=== PATIENT | female | born 2000 | race Caucasian/White ===

== ENCOUNTER 2021-08-03 15:38 | Emergency (ER) | payer OTHER, SELFPAY ==
[2021-08-03 15:40] VITALS: BP 139/93; PULSE 99; RESP 18; TEMP 36.2; O2SAT 99; BMI 32.7
--- NOTE | 2021-08-03 15:58 | EKG12_ITS ---
Test Reason : DIZZY Blood Pressure : / mmHG Vent. Rate : 099 BPM Atrial Rate : 099 BPM P-R Int : 162 ms QRS Dur : 078 ms QT Int : 344 ms P-R-T Axes : 050 042 036 degrees QTc Int : 441 ms Normal sinus rhythm Normal ECG Confirmed by GABY STEPHENS, DEANGELO ([id number]), editor at large JCARLOS MONTEMAYOR ([id number]) on 08/04/2021 12:49:22 P M Referred By: BB Confirmed By:DAVID GRIFFIN MD
--- NOTE | 2021-08-03 16:00 | EDS_ITS ---
HPI History of Present Illness Chief Complaint: Headache Informant: patient Narrative Narrative: Presenting for evaluation reported headache on and off for 2 days currently at 3 improving with naproxen and Tylenol. However states reason why she came 2 days ago working at [employer] had 2 syncopal episode she was working when this happened. Denies recent vomiting or diarrhea. Denies any chest pains palpitations. Denies urinary symptoms. States was sent home from [employer]. States first time did hit her head. Headache started afterwards. Denies any past medical history denies any previous similar symptoms in the past. Does not have a PCP. States having intermittent lightheaded symptoms. Came here with concerns for why she has lightheaded symptoms. Denies abdominal pain. No surgeries in the past no allergies. PFSH PFSH Home Medications NK 08/03/21 [History Last Taken Unknown] Allergy/AdvReac Type Severity Reaction Status Date / Time No Known Allergies Allergy Verified 08/03/21 15:42 Social History Smoking Status: Never smoker ROS ROS ED Constitutional Constitutional ED: Denies chills, fever(s) or sweats Eyes Eyes: Denies change in vision ENT ENT ED: Denies dysphagia or sore throat Cardiovascular Cardiovascular: Denies chest pain, leg edema, palpitations or racing heartbeat Respiratory/Chest Respiratory/Chest: Denies cough, dyspnea or dyspnea on exertion Gastrointestinal Gastrointestinal: Denies abdominal pain, diarrhea, nausea or vomiting Genitourinary Genitourinary ED: Denies dysuria, hematuria or urinary frequency Musculoskeletal Musculoskeletal: Denies back pain, extremity pain or neck pain Integumentary Denies rash or wounds Neurologic Neurologic: Reports headache(s); Denies paresthesias or weakness EXAM Physical Exam Const Vital Signs: 08/03/21 15:40 Temperature 97.1 F L Temperature Source Temporal Pulse Rate 99 Respiratory Rate 18 Blood Pressure 139/93 H Blood Pressure Mean 108 Pulse Ox 99 Oxygen Delivery Method Room Air Positive well nourished and well developed Constitutional Narrative: GCS 15. General Appearance ED: well developed and NAD HEENT Reports TM's clear and moist mucous membranes normocephalic and atraumatic Tympanic Membrane ED: Yes TM's clear Eyes PERRL, EOMs intact bilaterally and conjunctivae normal General Eye ED: Yes normal appearance of both eyes Neck no lymphadenopathy and supple Neck Narrative: No meningismus. General: Negative for tenderness Chest Wall Chest: Negative for tenderness Resp normal respiratory effort and normal air movement Effort and Inspection: symmetric chest movement; Negative for respiratory distress Cardio regular rate, regular rhythm and no murmurs Peripheral Pulses: pulses 2+ throughout GI normal to inspection, nondistended, normoactive bowel sounds and non-tender Palpation: Negative for guarding or rebound tenderness present Back/Spine no CVA tenderness and no thoracic nor lumbar tenderness Extremity normal to inspection General Extremety ED: Negative for edema or tenderness General Extremity: Negative for edema Neuro oriented x3, CN's II-XII intact bilaterally and no sensory deficits noted Sensorium / Orientation: awake and alert Skin no rashes or lesions noted and no wounds MDM MDM MDM Narrative Medical decision making narrative: Patient history concerns for head injury with concussion symptoms with her headache. Symptoms are mild currently. Here more concerns for syncopal episode occurring 2 days ago with lightheaded symptoms. EKG obtained which was normal basic labs were normal hCG negative. She has no focal deficits. She is given follow-up as an outpatient with return precautions. Work note given. She will continue Tylenol as needed as this is helping her symptoms. Lab Data Attestation: I reviewed the patient's lab results. Labs: Laboratory Results - last 24 hr 08/03/21 08/03/21 08/03/21 16:15 16:15 16:15 WBC 8.9 RBC 5.07 Hgb 13.4 Hct 42.2 MCV 83.2 MCH 26.4 L MCHC 31.8 L RDW Std Deviation 42.3 RDW Coeff of Floridalma 14.1 Plt Count 381 MPV 9.9 Immature Gran % (Auto) 0.300 Neut % (Auto) 70.0 Lymph % (Auto) 22.9 [place] % (Auto) 6.3 Eos % (Auto) 0.2 Baso % (Auto) 0.3 Absolute Neuts (auto) 6.2 Absolute Lymphs (auto) 2.04 Nucleated RBC % 0 Sodium 138 Potassium 3.6 Chloride 105 Carbon Dioxide 25.0 Anion Gap 8 BUN 7 Creatinine 0.70 Estim Creat Clear Calc 102.24 Est GFR (MDRD) Af Amer 137 Est GFR (MDRD) Non-Af 113 BUN/Creatinine Ratio 9.9 L Glucose 93 Calcium 9.2 Serum , Qual NEGATIVE EKG Initial EKG: Attestation: I personally reviewed and interpreted this EKG as follows: Comments: Sinus rhythm 99, no ST or T wave changes. QTc 441. Discharge Plan Triage Chief Complaint: Headache ED Provider: Jesse Tan Dx/Rx/DC Orders Clinical Impression: Syncope, Post-concussion headache Instructions: Causes of Syncope, ED Concussion Prescriptions: No Action NK RF: 0 Primary Care Provider: Care Physician,No Primary Referrals: Lucrecia Ross MD [STAFF PHYSICIAN] - 3-5 Days Care Physician,No Primary [Primary Care Provider] - Activity Restrictions/Additional Instructions: Normal EKG normal basic labs hCG negative. Continue Tylenol as needed for headache symptoms. Follow-up as an outpatient. Disposition Disposition: Home, Self Care Discharge Date/Time: 08/03/21 17:24
[2021-08-03 16:22] LABS: Absolute Lymphocyte Count 2.04 X10^3/uL (0.83-4.51); Absolute Neutrophil Count 6.2 X10^3/uL (2.0-7.7); Basophil# 0.03 X10^3/uL; Basophil% 0.3 % (0-1); Eosinophil# 0.02 X10^3/uL; Eosinophils% 0.2 % (0-5); Hematocrit 42.2 % (37-47); Hemoglobin 13.4 g/dL (12.0-15.0); Lymphocyte # 2.04 X10^3/ul (0.83-4.51); Lymphocyte % 22.9 % (19-41); Mean Corp Hgb Conc 31.8 g/dL (32-36); Mean Corpuscular Hgb 26.4 pg (27.0-32.0); Mean Corpuscular Volume 83.2 fL (81-99); Mean Platelet Vol. 9.9 fl (6.2-12.0); Monocyte# 0.56 X10^3/uL; Monocyte% 6.3 % (0-10); NRBC Flagged by Analyzer 0 % (0-5); Neutrophil # 6.22 X10^3/uL (2.7-7.7); Platelet Count 381 K/mm3 (150-450); RBC Distribution Width CV 14.1 % (11.6-14.6); RBC Distribution Width SD 42.3 fl (35.1-43.9); Red Blood Count 5.07 M/mm3 (4.2-5.4); White Blood Count 8.9 K/mm3 (4.4-11.0)
[2021-08-03 16:34] LABS: Anion Gap 8 (5-15); BUN 7 mg/dL (7-18); BUN/Creat Ratio 9.9 RATIO (10-20); Calcium,Total 9.2 mg/dL (8.5-10.1); Chloride 105 mmol/L (98-107); EST Glomerular Filtration Rate 113 mL/min (>60); Est Glom Filt Rate - Afr Amer 137 mL/min (>60); Estimated Creatinine Clearance 102.24 ml/min; Glucose 93 mg/dL (74-106); Potassium 3.6 mmol/L (3.5-5.1); Sodium Level 138 mmol/L (136-145)
--- NOTE | 2021-08-03 16:44 | CM.ED ---
Social Work Consult: No PCP Referral source: Self referral due to above. Met with patient in room. Introduced self and health social work professor role. Patient agreeable to speak with this health social work professor. This health social work professor broached topic of PCP. Patient confirms to not have a PCP. Patient is open to this health social work professor providing patient with list of PCP's that are local to patient geographical region and in-network with patient insurance. This health social work professor provided patient with list. Patient denies any other concerns in the community. No further services requested or indicated. Jacob Butts MSW, ELIZ-S
[2021-08-03 17:01] LABS: Internal QC Validated? YES +Cl - CLEAR BKGD; Pregnancy, Serum, hCG Quali. NEGATIVE Negative
== END 2021-08-03 17:24 | disposition home or self-care (01) ==
PROVIDERS: Emergency Provider Emergency Medicine; Visit Provider Emergency Medicine
DX: F07.81 Postconcussional syndrome (principal); G44.309 Post-traumatic headache, unspecified, not intractable; R55 Syncope and collapse
CPT/HCPCS: 80048; 84703; 85025; 93005; 99283

== ENCOUNTER → 2021-10-25 | Outpatient (CLI) | payer OTHER, SELFPAY ==
--- NOTE | 2021-10-25 14:31 | RAD_ITS ---
EXAM: XR LEFT ANKLE COMPLETE, 3 OR MORE VIEWS CLINICAL INDICATION: pain in ankle TECHNIQUE: Frontal, lateral and oblique views of the left ankle. This report was created using [employer] report generation technology. COMPARISON: None. FINDINGS: BONES/JOINTS: Unremarkable. No acute fracture. No subluxation. Normal alignment. Preservation of the joint space. No sclerotic or destructive changes observed. SOFT TISSUES: Unremarkable. No soft tissue swelling or gas. No radiopaque foreign body. RAD/Ankle min 3 Views IMPRESSION: Negative left ankle x-rays. Electronically Signed: Nahid Calhoun MD at 17:57 EDT ,
== END | disposition home or self-care (01) ==
LOC: MTRAD 14:29
PROVIDERS: PCP Family Medicine; Referring Provider Family Medicine; Visit Provider Family Medicine
DX: M25.572 Pain in left ankle and joints of left foot (principal)
CPT/HCPCS: 73610

== ENCOUNTER → 2022-05-10 | Outpatient (CLI) | payer MEDICAID, SELFPAY ==
--- NOTE | 2022-05-10 16:22 | MRI_ITS ---
STUDY: MRI BRAIN WITH AND WITHOUT CONTRAST REASON FOR EXAM: Female, 21 years old. LIGHTHEADEDNESS TECHNIQUE: Standardized multiplanar fat and water weighted pulse sequences were obtained. IV 15mL CLARISCAN was administered for the contrast portion of the examination. COMPARISON: None. FINDINGS: Normal size of the ventricles and extra-axial spaces for the patient''s age. Normal white matter tracts of the supratentorial brain. Normal bilateral basal ganglia. Normal thalami. There is no extra-axial fluid accumulation. Normal flow voids within the major intracranial circulation suggesting patency by spin echo criteria. Normal venous enhancement. There is no enhancing intra-axial or extra-axial abnormality. Normal sella turcica, pituitary gland, infundibular stalk, optic chiasm and hypothalamus. Normal tectal plate and pineal gland. Normal midbrain, roberth and medulla. Normal cerebellum. Normal basal cisterns. Normal bilateral temporal bones. Normal bilateral internal auditory canals. No demonstrated orbital abnormality, within the constraints of a routine brain study. Normal visualized paranasal sinuses. Normal calvarium and skull base. Normal visualized soft tissue structures. Normal visualized upper cervical spine. MRI/Brain W/WO Contrast IMPRESSION: Normal unenhanced and enhanced MRI of the brain. Electronically Signed: Jerome Partida MD at 17:53 EST ,
== END | disposition home or self-care (01) ==
PROVIDERS: PCP Family Medicine; Visit Provider Family Medicine
DX: R42 Dizziness and giddiness (principal)
CPT/HCPCS: 70553; A9575

== ENCOUNTER → 2022-05-11 | Outpatient (CLI) | payer MEDICAID, SELFPAY ==
[2022-05-11 17:04] LABS: Absolute Lymphocyte Count 2.11 X10^3/uL (0.83-4.51); Absolute Neutrophil Count 3.9 X10^3/uL (2.0-7.7); Basophil# 0.04 X10^3/uL; Basophil% 0.6 % (0-1); Eosinophil# 0.05 X10^3/uL; Eosinophils% 0.8 % (0-5); Hematocrit 41.6 % (37-47); Lymphocyte # 2.11 X10^3/ul (0.83-4.51); Mean Corp Hgb Conc 31.3 g/dL (32-36); Mean Corpuscular Hgb 27.4 pg (27.0-32.0); Mean Corpuscular Volume 87.6 fL (81-99); Mean Platelet Vol. 10.2 fl (6.2-12.0); Monocyte# 0.52 X10^3/uL; Monocyte% 7.9 % (0-10); NRBC Flagged by Analyzer 0 % (0-5); Neutrophil # 3.86 X10^3/uL (2.7-7.7); Neutrophil % 58.4 % (47-70); Platelet Count 340 K/mm3 (150-450); RBC Distribution Width CV 13.2 % (11.6-14.6); RBC Distribution Width SD 42.9 fl (35.1-43.9); Red Blood Count 4.75 M/mm3 (4.2-5.4); White Blood Count 6.6 K/mm3 (4.4-11.0)
[2022-05-11 17:38] LABS: Internal QC Validated? YES +Cl - CLEAR BKGD; Pregnancy, Serum, hCG Quali. NEGATIVE Negative
[2022-05-11 17:42] LABS: Anion Gap 8 (5-15); BUN 8 mg/dL (7-18); Calcium,Total 9.1 mg/dL (8.5-10.1); Chloride 105 mmol/L (98-107); EST Glomerular Filtration Rate 97 mL/min (>60); Est Glom Filt Rate - Afr Amer 117 mL/min (>60); Glucose 93 mg/dL (74-106); Potassium 3.9 mmol/L (3.5-5.1); Sodium Level 140 mmol/L (136-145)
== END | disposition home or self-care (01) ==
LOC: LAB 16:50
PROVIDERS: PCP Family Medicine; Visit Provider Internal Medicine Cardiovascular Disease
DX: R55 Syncope and collapse (principal); R42 Dizziness and giddiness
CPT/HCPCS: 36415; 80048; 84703; 85025

== ENCOUNTER → 2022-06-15 | Outpatient (CLI) | payer MEDICAID, SELFPAY ==
--- NOTE | 2022-06-15 07:17 | ECHOD_ITS ---
Reason For Study: SYNCOPE Procedure This was a 2D Doppler, Color Flow transthoracic echocardiogram. The exam was of adequate technical quality. Exam performed in department. Left Ventricle Normal LV size. Left ventricular systolic function is normal. The estimated ejection fraction is 65 %. No evidence for diastolic dysfunction. No regional wall motion abnormalities noted. Right Ventricle Normal RV size. Normal systolic function. Atria Normal left atrium. Normal right atrium. Normal atrial septum. Bubble contrast study negative for right to left interatrial shunt. Mitral Valve There is no mitral annular calcification. Normal mitral valve. Trivial mitral valve insufficiency. Tricuspid Valve Normal tricuspid valve. Mild tricuspid valve insufficiency. Unable to estimate RV systolic pressure due to insufficient tricuspid regurgitant envelope. Aortic Valve Trisinus/trileaflet aortic valve. Normal aortic valve. Pulmonic Valve The pulmonic valve is not well visualized. Great Vessels Normal sized aortic root. Pericardium/Pleural No pericardial effusion. Medication 22 gauge I.V. with prn adaptor inserted into left arm. Performed a rapid injection of agitated mix of 9 cc saline and 1cc air to assess for atrial septal defect. MMode/2D Measurements & Calculations LVIDd: 4.4 cm IVSd: 0.79 cm Ao root diam: 2.5 cm LVIDs: 3.4 cm LVPWd: 0.94 cm RVDd: 2.9 cm FS: 21.8 % LAV(MOD-sp4): 47.3 ml LVAd ap4: 28.4 cm2 SV(MOD-sp4): 49.2 ml LVLd ap4: 8.2 cm EDV(MOD-sp4): 83.1 ml EDV(sp4-el): 83.9 ml LVAs ap4: 16.3 cm2 LVLs ap4: 6.4 cm ESV(MOD-sp4): 34.0 ml ESV(sp4-el): 35.4 ml EF(MOD-sp4): 59.1 % EF(sp4-el): 57.8 % SV(sp4-el): 48.5 ml LA A4 area: 17.7 cm2 LA dimension(2D): 3.5 cm RA A4 area: 13.7 cm2 Time Measurements MV dec time: 0.18 sec Doppler Measurements & Calculations MV E max arvin: 96.4 cm/sec Lat Peak E' Arvin: 21.8 cm/sec Med Peak E' Arvin: 11.4 cm/sec MV A max arvin: 62.4 cm/sec E/E' lat: 4.4 E/E' med: 8.5 MV E/A: 1.5 MV V2 max: 109.1 cm/sec MV dec slope: 579.6 cm/sec2 Ao V2 max: 141.1 cm/sec MV max P.8 mmHg Ao max P.0 mmHg MV V2 mean: 64.0 cm/sec Ao V2 mean: 101.9 cm/sec MV mean P.9 mmHg Ao mean P.7 mmHg MV V2 VTI: 31.9 cm Ao V2 VTI: 31.6 cm AV (velocity ratio): 0.80 LV V1 max: 117.3 cm/sec PA V2 max: 94.4 cm/sec LV V1 max P.5 mmHg PA V2 mean: 67.5 cm/sec LV V1 mean P.2 mmHg LV V1 mean: 84.0 cm/sec LV V1 VTI: 25.3 cm ECHO/Echo Complete Interpretation Summary Left ventricular systolic function is normal. The estimated ejection fraction is 65 %. Trivial mitral valve insufficiency. Mild tricuspid valve insufficiency. Unable to estimate RV systolic pressure due to insufficient tricuspid regurgita nt envelope. No evidence for diastolic dysfunction. Bubble contrast study negative for right to left interatrial shunt. Ordering Physician: Espinoza Vargas Referring Physician: Espinoza Vargas Performed By: Lisa Mo RCS
== END | disposition home or self-care (01) ==
LOC: CVS 07:14
PROVIDERS: PCP Family Medicine; Referring Provider Internal Medicine Cardiovascular Disease; Visit Provider Internal Medicine Cardiovascular Disease
DX: R55 Syncope and collapse (principal)
CPT/HCPCS: 93225; 93226; 93306; A4216

== ENCOUNTER → 2022-06-20 | Outpatient (CLI) | payer MEDICAID, SELFPAY ==
[2022-06-20 09:34] LABS: Internal QC Validated? YES +Cl - CLEAR BKGD; Pregnancy, Serum, hCG Quali. NEGATIVE Negative
--- NOTE | 2022-06-20 15:44 | PCM.HP.BLA ---
History and Physical Date of Admission: 06/20/22 [facility] [address] [place], [place] [address] OFFICE VISIT Date of Service:? 05/11/22 MR#: [id number] Acct: [id number] Name:ACE VILLANUEVA Rep #: [id number] : 2000 Provider: Dr. Espinoza Vargas MD Age/Sex:? 21/F Location: [facility] [place] Status: Signed HPI HPI History of Present Illness Details: This is a 21-year-old white female who presents today for outpatient cardiovascular consultation based upon concerns of dizziness, lightheadedness, and syncope.? She states for greater than a year now she is experienced these symptoms with respect to dizziness and lightheadedness.? This can occur on a daily basis.? She states it can last for seconds.? During this time she does feel off balance, sometimes her vision is blurry, sometimes her hearing appears to be diminished, sometimes she feels transiently nauseated.? She notes she will pause and her symptoms will pass and then she can resume her activities.? She states that in the spring 2021 she had an episode after bending over and picking up a case of water where she felt dizzy and lightheaded and transiently lost consciousness.? She stated 3 days later she went to the emergency department for evaluation.? She notes her evaluation was unremarkable at the time.? She has not had a recurrent syncopal event. She does not describe any concerning chest discomforts.? She has had no orthopnea or PND or peripheral pitting edema.? She states she has not necessarily sensed a change in her heart rate and rhythm. She has been evaluated by ENT.? She has undergone brain MRI yesterday.? According to the report it was a normal unenhanced and enhanced MRI of the brain.? She states she is waiting for further follow-up from her PCP and/or ENT. She had an ECG in the office today.? She was noted to be in sinus rhythm.? She had no acute ECG changes. She states she has not gone through any cardiovascular evaluation in the past. Intake Vital Signs ? 08/03/2214:40 05/11/2314:44 05/11/2314:48 05/11/2315:02 Height 5 ft 2 in 5 ft 2 in 5 ft 1 in ? Weight: 179 lb ? 163 lb 2 oz ? BMI 32.7 ? 30.8 ? BP 139/93 H ? 122/78 H 124/72 H Blood Pressure Location ? ? Lt brachial Lt brachial Position ? ? Sitting Standing Respiration 18 ? 14 ? Pulse 99 ? 84 96 Pulse Source ? ? Auscultation Auscultation Temp 97.1 F L ? ? ? Pulse Oximetry (%) 99 ? ? ? Intake Visit Reasons:?lightheadness/ dizziness (JOSE DAVID) Dialysis Social Worker Required: No Accompanied by: Significant Other Allergies No Known Allergies Allergy (Verified 05/11/22 15:49) Medications L norgest/E estradiol-E estrad 0.15 mg-30 mcg (84)/10 mcg(7) tabs,3mos (Seasonique) 1 tab PO DAILY 05/10/22 [History Confirmed 05/11/22] cetirizine 10 mg tablet (Zyrtec) 10 mg PO DAILY PRN 05/10/22 [History Confirmed 05/11/22] fluoxetine 40 mg capsule (Prozac) 40 mg PO DAILY 05/10/22 [History Confirmed 05/11/22] PFSH Social History? Smoking Status:? Never smoker alcohol intake:? never substance use type:? does not use caffeine:? Yes (x2 week) ROS Const Const: Positive for headache(s) (after dizziness episodes); Negative for fatigue, weakness, body ache, fever(s), chills, frequent falls, night sweats, daytime sleepiness, difficulty sleeping, excessive sweating, weight gain, weight loss, increased appetite, poor appetite, anorexia or other Eyes Eyes: Negative for blurry vision or double vision ENT ENT: Positive for headache(s) (after dizziness episodes) and dizziness (blurred vision everything moves slower, position changes, weeding/mowing); Negative for balance problems Cardio Chest Pain: No Palpitations: No Edema: None Muscle aches with walking: None Resp Respiratory: Positive for SOB with activity (past 2 years, baseline); Negative for SOB at rest, SOB orthopnea\SOB lying down, Cough, Coughing up blood/hemoptysis, chest congestion, pain on inspiration, snoring, stridor, wheezing, crackles, paroxysmal nocturnal dyspnea or other Musc Musc: Positive for muscle aches/ myalgia (chronic back pain); Negative for muscle weakness, joint pain or balance problems Neuro Neuro: Positive for dizziness (blurred vision everything moves slower, position changes, weeding/mowing), lightheadedness (as soon as I do something couple seconds after I get up), syncope (x1 episode, bending over to parts picker a case of water became dizzy) and headache(s) (after dizziness episodes); Negative for near syncope, orthostatic symptoms, frequent falls, weakness, confusion, memory loss, restless legs, blurry vision, double vision, vertigo, seizures, lack of coordination or other Endo Endo: Negative for fatigue or excessive sweating Cardiology Exam Const Appearance: cooperative, healthy appearing, comfortable, no acute distress, well developed and well groomed Nutritional Appearance: overweight Orientation: alert, awake and oriented x3 Head Head: normal to inspection, normocephalic and atraumatic Ears: hearing grossly normal bilaterally Nose: external nose normal Face and Sinus: face symmetric Eyes Eyelids: eyelids normal Conjunctivae: conjunctivae normal Pupils: PERRL EOM: EOM intact bilaterally Neck Neck: normal visual inspection and full ROM Carotids: normal carotid upstroke Chest Chest inspection: normal inspection of the chest, symmetric chest movement and normal respiratory effort Auscultation: Bilateral: Clear to Auscultation Cardio Palpation: normal PMI Rate: regular rate Rhythm: regular rhythm Heart sounds: S1 normal and S2 normal GI GI: normal to inspection, soft and bowel sounds present Neuro General: patient alert, patient awake, patient oriented x3, gait normal and moves all extremities Skin Skin: no rashes or lesions noted Extremities Pulses: Normal: Right Femoral Pulse, Left Femoral Pulse, Right Dorsalis Pedis Pulse, Left Dorsalis Pedis Pulse, Right Posterior Tibial Pulse, Left Posterior Tibial Pulse, Right Radial Pulse and Left Radial Pulse Lower Extremity Edema: None: Bilateral Psych Psychological: normal affect Supplemental Info Supplemental Information Labs: ?? ? No Data to Display Diagnostics: ?? ? Electrocardiogram ? Pulmonary: ?? ? No Data to Display Assessment and Plan Assessment and Plan (1) Dizziness: ?Status:?Acute ?Plan: The patient complains of dizziness. The etiology is unclear at this time whether this is cardiac or noncardiac. From a cardiac standpoint as she experiences these symptoms every day she will have further evaluation with a 24-hour Holter monitor. She will also have evaluation of her cardiac anatomy/structure/physiology with a transthoracic echocardiogram to evaluate for any obvious concerns would be contributing to her symptoms. Its unclear as to whether she truly has any evidence of an underlying autonomic dysfunction disorder.? It may not be unreasonable to consider a tilt table study. (2) Lightheadedness: ?Status:?Acute ?Plan: The patient complains of lightheadedness as well. Again its unclear whether this is cardiac or noncardiac. She will continue cardiovascular noninvasive valuation as noted above (3) Syncope: ?Status:?Acute ?Plan: The patient had an episode of syncope with changing positions. This raise concerns of an underlying orthostatic type change. She did have orthostatic blood pressures in the office today that demonstrated no significant change on this day. She will continue evaluation and care as noted above. ? ? ? Orders: Orders 12 Lead EKG performed by [facility] Today R42 - Dizziness and giddiness ? Cardiac Holter Monitor, 24 Hrs Today R42 - Dizziness and giddiness, R55 - Syncope and collapse ? Tilt Table Test Today R00.2 - Palpitations, R42 - Dizziness and giddiness, R55 - Syncope and collapse ? Echo Complete Today R42 - Dizziness and giddiness, R55 - Syncope and collapse ? Basic Metabolic Profile (BMP) Today R42 - Dizziness and giddiness, R55 - Syncope and collapse ? CBC W/Diff, Automated Today R42 - Dizziness and giddiness, R55 - Syncope and collapse ? ,Serum,hCG Quali. Today R42 - Dizziness and giddiness, R55 - Syncope and collapse ? Plan Details Additional Comments: She was also asked to follow-up with her PCP and ENT if deemed appropriate for results of her brain MRI and further noncardiac evaluation. Of her cardiovascular evaluation is unremarkable then she may need further neurologic evaluation. From a cardiac standpoint in the interim she was asked to maintain adequate hydration and to consider wearing support/compression stockings when she is standing for prolonged periods of time. The above was discussed with the patient with her significant male other present.? She was agreeable to this approach. Thank you for allowing me to participate in the care of your patient.? Please don't hesitate to call if any issues arise. This note was generated using a voice recognition system and there may be incorrect words, spelling or punctuation that were not noted when reviewing the office note prior to saving. Follow Up: ? ? 3 Months (PFM ) COVID (Procedure Consent) Procedure Criteria Procedure Criteria: Yes Elective The surgeon/proceduralist and patient have discussed in detail the risk of exposure to and/or potential harm posed by the COVID-19 virus with having a surgery/procedure at this time versus the risk of? delaying the surgery/procedure. It is not possible to know either the risk of delaying the surgery or procedure or chance of getting an infection with perfect accuracy, but a joint decision was made between the patient and the surgeon/proceduralist ?to proceed at this time with the scheduled surgery/procedure as indicated on the consent form. Coding Level of Care Code Off vis,new,level 4 Diagnoses Dizziness? R42 Lightheadedness? R42 Syncope? R55 Time Spent (min) 45 Coding Level of Care Code Off vis,new,level 4 Diagnoses Dizziness? R42 Lightheadedness? R42 Syncope? R55 Time Spent (min) 45 05/11/22 1656 <Electronically signed by Espinoza Vargas MD> Date Espinoza Vargas MD Cosigner Signature: Date (if applicable) CC:? Denise Tirado, DO ~ Assessment & Plan Addt'l Comments Addendum: 06/20/2022 I have previously examined the patient and the H&P has been reviewed. There are no clinical changes since date of exam. This note was generated using a voice recognition system and there may be incorrect words, spelling or punctuation that were not noted when reviewing the office note prior to saving.
--- NOTE | 2022-06-20 15:48 | TILTTABLE_ITS ---
Staff Staff: Addie Montiel and Anastasiia Samayoa Summary Protocol: 70 Degree Upright Tilt Pre Test Resting HR: 78 Pre Test Resting BP: 138/81 Minimum Test HR: 86 Maximum Test HR: 155 Minimum Test BP: 68/0 Maximum Test BP: 138/86 Reason for Test Termination: Reached Maximum Test Time Physician Tilt Table Report Patient's Physicians Primary Care Physician: Denise Tirado Microbiology Analyst: Espinoza Vargas Indications/Diagnosis: Dizziness/lightheadedness Syncope Procedure Comments: The patient was brought to the tilt table laboratory and laid supine on the tilt table. She was awake and alert and warm and dry. The baseline heart rate was 78 bpm with a baseline blood pressure 138/81 mmHg. The cardiac rhythm was normal sinus rhythm. The patient was placed in the 70 degree upright tilt table position for approximately 30 minutes. The patient remained alert and oriented and warm and dry. The initial heart rate was 88 bpm with a blood pressure 124/80 mmHg with a minimal heart rate of 86 bpm and a minimal blood pressure of 118/78 mmHg. The cardiac rhythm remained sinus rhythm. The patient complained of her palms feeling clammy, hand numbness, and hand tingling. The patient did not lose consciousness. The patient was returned to the supine position. She was awake and alert and oriented and warm and dry. The heart rate was 103 bpm with a blood pressure 126/91 mmHg. The cardiac rhythm was sinus rhythm. The patient was administered nitroglycerin 0.4 mg sublingual x1. The patient was returned to the 70 degree upright tilt table position. In the 70 degree upright tilt table position the patient remained alert and oriented. She was initially warm and dry and subsequently reported as clammy/sweaty. The initial heart rate was 103 bpm with a blood pressure 126/91 mmHg. The minimal heart rate was 111 bpm with a minimal blood pressure of systolic 68 mmHg with no diastolic blood pressure being reported. The maximal heart rate was 155 bpm with a maximal blood pressure 114/62 mmHg. During this time the patient was noted to have sinus tachycardia with subsequent return to normal sinus rhythm with no obvious ectopy, dysrhythmias, or conduction system abnormalities appreciated. The patient reported a combination of feelings including feeling hot, lightheaded, hands warm and clammy, breathing heavy, and becoming diaphoretic. The patient did not lose consciousness. The patient was returned to the supine position where she remained alert and oriented and subsequently warm and dry. She was monitored with a concluding heart rate of 85 bpm and a concluding blood pressure 118/74 mmHg. Cardiac rhythm remains sinus rhythm. She was upright and taking oral intake well. She was subsequently released from the tilt table laboratory. Summary: 70 degree upright tilt table study pre and post nitroglycerin challenge demonstrate symptoms compatible with vasovagal/neurocardiogenic mediated type symptoms but was considered negative for reproducible vasovagal/neurocardiogenic mediated syncope. This note was generated using a voice recognition system and there may be incorrect words, spelling or punctuation that were not noted when reviewing the office note prior to saving.
[2022-06-20 15:56] VITALS: BP 138/81; BP 138/86; BP 68/0
== END | disposition home or self-care (01) ==
PROVIDERS: PCP Family Medicine; Referring Provider Internal Medicine Cardiovascular Disease; Visit Provider Internal Medicine Cardiovascular Disease
DX: R00.2 Palpitations (principal); R55 Syncope and collapse; R42 Dizziness and giddiness
CPT/HCPCS: 36415; 84703; 93660; J7040; A4216

== ENCOUNTER 2022-09-05 22:05 | Emergency (ER) | payer MEDICAID, SELFPAY ==
[2022-09-05 22:05] VITALS: BP 136/96; PULSE 93; RESP 15; TEMP 37.2; O2SAT 100; BMI 31.6
--- NOTE | 2022-09-05 23:18 | EDS_ITS ---
HPI HPI - GI History of Present Illness Chief Complaint: Other, Pain/Inj Detail of Chief Complaint: Epigastric discomfort with reflux. Informant: patient and spouse/S.O. Abdominal Pain/Flank Pain Onset: Weeks Context: Gradual Onset Timing: Intermittent Quality: Burning Location: Epigastric Current Severity: Mild Maximum Severity: Moderate Worsened by: Nothing Relieved by: Nothing Nausea/Vomiting/Emesis GI Symptom: Negative for Nausea or Vomiting Diarrhea/Melena/Hematochezia GI Symptom: Negative for Diarrhea, Melena or Hematochezia Associated Symptoms Associated Symptoms: Negative for Dysuria, Frequency, Hematuria or Urgency Narrative Narrative: 21-year-old female history of anxiety. Complaining of reflux symptoms. Says my esophagus hurts. Burning. Currently on no medications. Has never had upper endoscopy. Denies any abdominal surgery. Is on control has not had a menstrual period for a year. Denies any dysuria or diarrhea. No melena. No fever. Prior similar symptoms: Yes Recent Illness/Hospitalization: No PFSH PFSH Medical History no medical history Home Medications L norgest/E estradiol-E estrad 0.15 mg-30 mcg (84)/10 mcg(7) tabs,3mos (Seasonique) 1 tab PO DAILY 05/10/22 [History Last Taken Unknown] cetirizine 10 mg tablet (Zyrtec) 10 mg PO DAILY PRN 05/10/22 [History Last Taken Unknown] fluoxetine 40 mg capsule (Prozac) 40 mg PO DAILY 05/10/22 [History Last Taken Unknown] pantoprazole 40 mg tablet,delayed release (Protonix) 40 mg PO DAILY #30 tabs 09/05/22 [Rx Last Taken Unknown] Allergy/AdvReac Type Severity Reaction Status Date / Time No Known Allergies Allergy Verified 08/01/22 15:20 Social History Smoking Status: Never smoker alcohol intake: never substance use type: does not use caffeine: Yes (x2 week) ROS ROS ED ROS Narrative Epigastric discomfort. Reflux. Review of Systems ROS Unobtainable: Denies due to encephalopathy Constitutional Constitutional ED: Denies chills or fever(s) ENT ENT ED: Denies ear pain Cardiovascular Cardiovascular: Denies chest pain Respiratory/Chest Respiratory/Chest: Denies cough or dyspnea Gastrointestinal Gastrointestinal: Denies abdominal pain, constipation, diarrhea, melena, nausea or vomiting Genitourinary Genitourinary ED: Denies dysuria or hematuria Musculoskeletal Musculoskeletal: Denies arthralgias Integumentary Denies abscess Neurologic Neurologic: Denies headache(s) Psychiatric Psychiatric: Denies anxiety Endocrine Endocrinology: Denies polydipsia Hematologic/Lymphatic Hematologic/Lymphatic: Denies easy bleeding Allergic/Immunologic Allergic/Immunologic ED: Denies mouth swelling or tongue swelling EXAM Physical Exam Narrative Exam Narrative: Well-appearing 21-year-old. Vital signs stable afebrile. H EENT exam unremarkable. Neck nontender. Lungs clear to auscultation. Heart regular rhythm no murmur rate about 90. Abdomen soft nondistended normal bowel sounds no peritoneal signs. Minimal epigastric tenderness. No right upper or right lower quadrant tenderness. No distention. No hernia or mass. Soft. Moving all 4 extremities. Back nontender. Neurologic exam normal. Const Vital Signs: 09/05/22 22:05 09/05/22 22:48 Temperature 98.9 F Temperature Source Temporal Pulse Rate 93 Respiratory Rate 15 Respiratory Effort Normal Non-Labored Blood Pressure 136/96 H Blood Pressure Mean 109 Pulse Ox 100 Oxygen Delivery Method Room Air Positive well nourished and well developed; Negative for cachectic, contractures or unkempt General Appearance ED: well developed and NAD; Negative for unkempt, cachectic, contractures or pallor Nutritional Appearance: Negative for cachectic HEENT Reports moist mucous membranes normocephalic and atraumatic; Negative for trauma or tenderness Eyes PERRL and EOMs intact bilaterally General Eye ED: Negative for pale conjunctiva, scleral icterus or other Neck No no lymphadenopathy, supple and no JVD General: Negative for tenderness Carotids: Negative for other Resp normal respiratory effort and clear to auscultation bilaterally Effort and Inspection: Negative for respiratory distress Auscultation: Negative for rales, rhonchi or wheezes Cardio regular rate, regular rhythm, S1 normal heart sound, S2 normal heart sound and no murmurs Rate: Negative for bradycardia Rhythm: Negative for abnormal rhythm GI non-distended and no masses; Negative for non-tender GI Narrative: Minimal epigastric tenderness. Inspection: Negative for abdominal distention Auscultation: normoactive bowel sounds Palpation: soft; Negative for tender, guarding, rigid, hepatomegaly, splenomegaly, hernia, mass, pulsatile mass or rebound tenderness present Back/Spine no CVA tenderness General Back: Negative for CVA tenderness Cervical Spine: Negative for cervical spine tenderness Thoracic Spine / Upper Back: Negative for thoracic spinal tenderness Lumbar Spine / Lower Back: Negative for lumbar spinal tenderness Coccyx: Negative for other Extremity full ROM General Extremety ED: Negative for edema or tenderness General Extremity: Negative for edema Neuro CN's II-XII intact bilaterally and moves all extremities Sensorium / Orientation: alert, oriented to person, oriented to place and oriented to time; Negative for orientation impaired, confused, lethargic or stuporous Motor Exam: strength 5/5 throughout Psych mental status grossly normal and thought process normal Appearance: Negative for unkempt Attitude: No agitated Mood & Affect: Negative for depressed, anxious or tearful Skin no wounds General Skin Exam: Negative for jaundice or pallor Lesions: no lesions Rashes: no rashes Trauma: Negative for abrasion Nails: Negative for discolored MDM MDM MDM Narrative Medical decision making narrative: 21-year-old that historically sounds like reflux. Benign abdominal exam. No history or reason of pancreatitis. Does not sound like gallbladder disease. Is not her appendix. There is no obstruction. Its not [employer] related nor . She will be treated with a GI cocktail and Protonix. She does not need imaging. She will follow-up with her primary care physician if improving they can continue the meds if not she can follow-up to have possible endoscopy. History & Record Review Discussion w/independent historian: Patient and Significant other Discharge Plan Triage Chief Complaint: Other, Pain/Inj ED Provider: Esteban Oconnor Dx/Rx/DC Orders Clinical Impression: Gastroesophageal reflux Instructions: ED GERD (Adult) Prescriptions: New pantoprazole [Protonix] 40 mg tablet,delayed release (DR/EC) 40 mg PO DAILY Qty: 30 0RF Rx Instructions: 40 mg twice a day for the first week. After that once a day. No Action L norgest/e.estradiol-e.estrad [Seasonique] 0.15 mg-30 mcg (84)/10 mcg (7) tablets,dose pack,3 month 1 tab PO DAILY fluoxetine [Prozac] 40 mg capsule 40 mg PO DAILY cetirizine [Zyrtec] 10 mg tablet 10 mg PO DAILY PRN Primary Care Provider: Denise Tirado Referrals: Denise Tirado, DO [Primary Care Provider] - 1-2 Weeks Activity Restrictions/Additional Instructions: Protonix 40 mg twice a day for the first week and then once a day after that. Avoid spicy foods. Avoid alcohol. Avoid Motrin and aspirin. Do not eat within 3 hours of bedtime. Elevate the head of your bed. You may use Tums also. Follow-up with your doctor if you are improving you can continue the medication. If you are not you may need upper endoscopy. Disposition Disposition: Home, Self Care
[2022-09-05] MEDS: Pantoprazole Sodium 40 MG Tablet PO (23:22)
[2022-09-05] MEDS: Mag Hydrox/Al Hydrox/Simeth 30 ML UDC PO (23:23)
== END 2022-09-05 23:28 | disposition home or self-care (01) ==
PROVIDERS: Emergency Provider Emergency Medicine; PCP Family Medicine; Visit Provider Emergency Medicine
DX: K21.9 Gastro-esophageal reflux disease without esophagitis (principal); Z79.3 Long term (current) use of hormonal contraceptives; F41.9 Anxiety disorder, unspecified; Z79.899 Other long term (current) drug therapy
CPT/HCPCS: 99283

== ENCOUNTER 2022-09-06 19:00 | Emergency (ER) | payer MEDICAID, SELFPAY ==
[2022-09-06 19:00] VITALS: BP 138/88; PULSE 95; RESP 18; TEMP 36.1; O2SAT 96; BMI 31.6
--- NOTE | 2022-09-06 19:24 | EX.ED.DYSGE1 ---
HPI History of Present Illness Chief Complaint: Cold Sx Informant: patient Narrative Narrative: Patient states that for maybe a week or so she has been having what she describes as upper or mid esophageal pain. It hurts when she swallows. But she is able to swallow. She has never had something that does not pass down. Sometimes she feels as though it is slow to pass down though. She has not vomited. She she occasionally has some epigastric discomfort. No lower abdominal pain. No fevers or chills. No trouble breathing. She was seen yesterday for this. It sounds like she took a pantoprazole and the symptoms or not gone after she took that. No history of diabetes. No recent thrush. There is no pills or food that she swallowing that had got stuck that initiated this. She states she thinks she lost couple pounds yesterday but she has not lost weight today. No other weight loss or weight gain. No back pain. No syncope or presyncope [facility] Medical History (Updated 09/06/22 @ 21:[address] Moreno Craig MD) Anxiety Home Medications L norgest/E estradiol-E estrad 0.15 mg-30 mcg (84)/10 mcg(7) tabs,3mos (Seasonique) 1 tab PO DAILY 05/10/22 [History Last Taken Unknown] cetirizine 10 mg tablet (Zyrtec) 10 mg PO DAILY PRN 05/10/22 [History Last Taken Unknown] fluoxetine 40 mg capsule (Prozac) 40 mg PO DAILY 05/10/22 [History Last Taken Unknown] pantoprazole 40 mg tablet,delayed release (Protonix) 40 mg PO DAILY #30 tabs 09/05/22 [Rx Last Taken Unknown] sucralfate 100 mg/mL oral suspension (Carafate) 10 ml PO BID #200 mL 09/06/22 [Rx Last Taken Unknown] Allergy/AdvReac Type Severity Reaction Status Date / Time No Known Allergies Allergy Verified 09/06/22 19:02 Social History Smoking Status: Never smoker alcohol intake: never substance use type: does not use caffeine: Yes (x2 week) ROS ROS ED ROS Narrative A complete review of systems was performed and is negative except as documented in the history of present illness. Some specific details below. Constitutional: No recent fevers or chills. No malaise EYE: No visual complaints or pain. ENT: See history of present illness CV: No chest pain or palpitations. She does have the esophageal pain but really says that is present with swallowing not at other times. Respiratory: No dyspnea. No hemoptysis. No difficulty taking breaths. GI: Please see history of present illness. : No frequency dysuria or hematuria. Musculoskeletal: No recent trauma. No pains. Skin: No rash. Nondiaphoretic. Neuro: No weakness or numbness. Endocrine: No polyuria or polydipsia. EXAM Physical Exam Narrative Exam Narrative: CONSTITUTIONAL: Patient is nontoxic in appearance. The patient looks comfortable. She is sitting quietly on the bed HEENT: No notable trauma. Mucous membranes moist. Minimal posterior pharyngeal erythema but no blood or exudates are seen. Tonsils are nonenlarged. Voice is normal. Handling secretions is normal. I see no sign of thrush. There are no petechiae. EYES: No conjunctival injection. No proptosis. CARDIOVASCULAR: Regular rate. Regular rhythm. No notable murmur. No JVD. RESPIRATORY: No respiratory distress. Breathing is unlabored. No wheezes. No rhonchi. No rales. No pain with a deep breath. GASTROINTESTINAL: Not distended. Bowel sounds are normal. No tenderness. No guarding. No rebound. No palpable mass. No bruit. She complains of some intermittent epigastric discomfort but there is no tenderness on exam. GENITOURINARY: No tenderness over the bladder. No CVA tenderness. MUSCULOSKELETAL: Atraumatic. No peripheral edema. No cord. No tenderness along the deep venous system. No asymmetry. NEUROLOGICAL: Patient is alert and appropriate. No focal deficit noted. SKIN: No noted rashes. No diaphoresis. PSYCHIATRIC: Patient is calm. Mood is flat. Const Vital Signs: 09/06/22 19:00 09/06/22 19:49 Temperature 97 F L Temperature Source Temporal Pulse Rate 95 Respiratory Rate 18 Respiratory Effort Normal Non-Labored Respiratory Depth Normal Respiratory Pattern Normal Blood Pressure 138/88 H Blood Pressure Mean 104 Pulse Ox 96 Oxygen Delivery Method Room Air MDM MDM MDM Narrative Medical decision making narrative: Patient CBC shows no marked abnormalities. Patient's electrolytes show no abnormalities. Patient's liver function test showed no abnormalities. Patient's lipase shows no abnormalities. My independent interpretation of the patient PA and lateral chest x-ray shows no acute process. No hiatal hernia. Normal mediastinum. Final reading is also negative. I think the patient's symptoms are likely due to esophagitis likely from reflux. There is no clinical indication of thrush esophagitis. Her glucose is normal. I think the treatment that she was started on yesterday was thoroughly appropriate. I explained that 1 tablet of propafenone tonics will not resolve her symptoms. She will have to be on this for likely weeks. I will write for some Carafate to see if this will give her some benefit. We discussed follow-up with her primary physician and reasons to return. Lab Data Attestation: I reviewed the patient's lab results. Labs: Laboratory Results - last 24 hr 09/06/22 09/06/22 19:55 19:55 WBC 7.0 RBC 4.70 Hgb 13.1 Hct 40.7 MCV 86.6 MCH 27.9 MCHC 32.2 RDW Std Deviation 40.6 RDW Coeff of Floridalma 12.7 Plt Count 348 MPV 9.5 Immature Gran % (Auto) 0.600 Neut % (Auto) 61.4 Lymph % (Auto) 29.5 [place] % (Auto) 7.3 Eos % (Auto) 0.6 Baso % (Auto) 0.6 Absolute Neuts (auto) 4.3 Absolute Lymphs (auto) 2.07 Nucleated RBC % 0 Sodium 139 Potassium 3.8 Chloride 106 Carbon Dioxide 27.0 Anion Gap 6 BUN 9 Creatinine 0.86 Estim Creat Clear Calc 82.53 Est GFR (MDRD) Af Amer 108 Est GFR (MDRD) Non-Af 89 BUN/Creatinine Ratio 10.5 Glucose 95 Calcium 8.6 Total Bilirubin 0.40 AST 18 ALT 22 Alkaline Phosphatase 71 Total Protein 7.1 Albumin 3.4 Globulin 3.7 Albumin/Globulin Ratio 0.9 Lipase 15 Radiography Diagnostic Testing: Clinical Impression(s) from Imaging Studies Chest X-Ray 09/06/22 20:05 IMPRESSION: No radiographic evidence of acute cardiopulmonary disease. Electronically Signed: Espinoza Mahmood MD at 20:20 EDT , Discharge Plan Triage Chief Complaint: Cold Sx ED Provider: Moreno Craig Dx/Rx/DC Orders Clinical Impression: Gastroesophageal reflux Instructions: ED GERD (Adult) Prescriptions: New sucralfate [Carafate] 100 mg/mL suspension 10 ml PO BID Qty: 200 0RF No Action pantoprazole [Protonix] 40 mg tablet,delayed release (DR/EC) 40 mg PO DAILY Qty: 30 0RF Rx Instructions: 40 mg twice a day for the first week. After that once a day. L norgest/e.estradiol-e.estrad [Seasonique] 0.15 mg-30 mcg (84)/10 mcg (7) tablets,dose pack,3 month 1 tab PO DAILY fluoxetine [Prozac] 40 mg capsule 40 mg PO DAILY cetirizine [Zyrtec] 10 mg tablet 10 mg PO DAILY PRN Primary Care Provider: Denise Tirado Referrals: Denise Tirado, DO [Primary Care Provider] - 3-5 Days Disposition Disposition: Home, Self Care
[2022-09-06 20:00] LABS: Absolute Lymphocyte Count 2.07 X10^3/uL (0.83-4.51); Absolute Neutrophil Count 4.3 X10^3/uL (2.0-7.7); Basophil# 0.04 X10^3/uL; Basophil% 0.6 % (0-1); Eosinophil# 0.04 X10^3/uL; Eosinophils% 0.6 % (0-5); Hematocrit 40.7 % (37-47); Hemoglobin 13.1 g/dL (12.0-15.0); Lymphocyte # 2.07 X10^3/ul (0.83-4.51); Lymphocyte % 29.5 % (19-41); Mean Corp Hgb Conc 32.2 g/dL (32-36); Mean Corpuscular Hgb 27.9 pg (27.0-32.0); Mean Corpuscular Volume 86.6 fL (81-99); Mean Platelet Vol. 9.5 fl (6.2-12.0); Monocyte# 0.51 X10^3/uL; Monocyte% 7.3 % (0-10); NRBC Flagged by Analyzer 0 % (0-5); Neutrophil # 4.32 X10^3/uL (2.7-7.7); Neutrophil % 61.4 % (47-70); Platelet Count 348 K/mm3 (150-450); RBC Distribution Width CV 12.7 % (11.6-14.6); RBC Distribution Width SD 40.6 fl (35.1-43.9)
--- NOTE | 2022-09-06 20:05 | RAD_ITS ---
INDICATION: Esophageal pain EXAMINATION/TECHNIQUE: X-RAY - XR Chest 2 Views COMPARISON: None FINDINGS: LINES/DEVICES: None. LUNGS: No consolidation, edema or effusion. No pneumothorax. MEDIASTINUM AND CARDIOVASCULAR STRUCTURES: Cardiac silhouette not enlarged. Central airways and mediastinal contour are unremarkable. RAD/Chest PA and Lateral IMPRESSION: No radiographic evidence of acute cardiopulmonary disease. Electronically Signed: Espinoza Mahmood MD at 20:20 EDT ,
[2022-09-06 20:16] LABS: ALB/GLOB Ratio 0.9 RATIO (0.9-2.4); AST(SGOT) 18 U/L (15-37); Alanine Aminotransfer ALT/SGPT 22 U/L (13-56); Albumin, Serum 3.4 g/dL (3.2-5.0); Alkaline Phosphatase 71 U/L (45-117); Anion Gap 6 (5-15); BUN 9 mg/dL (7-18); BUN/Creat Ratio 10.5 RATIO (10-20); Calcium,Total 8.6 mg/dL (8.5-10.1); Chloride 106 mmol/L (98-107); Creatinine, Serum 0.86 mg/dL (0.55-1.02); EST Glomerular Filtration Rate 89 mL/min (>60); Est Glom Filt Rate - Afr Amer 108 mL/min (>60); Estimated Creatinine Clearance 82.53 ml/min; Globulin 3.7 g/dL (2.2-4.2); Glucose 95 mg/dL (74-106); Lipase 15 U/L (13-75); Potassium 3.8 mmol/L (3.5-5.1); Protein, Total 7.1 g/dL (6.4-8.2); Sodium Level 139 mmol/L (136-145)
== END 2022-09-06 21:43 | disposition home or self-care (01) ==
PROVIDERS: Emergency Provider Emergency Medicine; PCP Family Medicine; Visit Provider Emergency Medicine
DX: K21.9 Gastro-esophageal reflux disease without esophagitis (principal); F41.9 Anxiety disorder, unspecified; Z79.899 Other long term (current) drug therapy; Z79.3 Long term (current) use of hormonal contraceptives
CPT/HCPCS: 71046; 80053; 83690; 85025; 99283; A4216

== ENCOUNTER 2022-10-21 22:52 | Emergency (ER) | payer MEDICAID, SELFPAY ==
[2022-10-21 22:53] VITALS: BP 159/97; PULSE 108; RESP 15; TEMP 36.6; O2SAT 100; BMI 33.3
--- NOTE | 2022-10-21 23:40 | EDS_ITS ---
HPI History of Present Illness Chief Complaint: Dizziness Narrative Narrative: Patient feels dizzy, she is sometimes lightheaded, she has had episodes of high blood pressure and low blood pressure, she was recently diagnosed with orthostatic hypotension and was told to drink water she also has a tilt table test pending. No fever or chills. She has no vertiginous symptoms, she feels more lightheaded. She has no vision changes or any neurological symptoms. [facility] Medical History (Updated 10/22/22 @ 00:[address] Espinoza Montero MD) Anxiety Home Medications L norgest/E estradiol-E estrad 0.15 mg-30 mcg (84)/10 mcg(7) tabs,3mos (Seasonique) 1 tab PO DAILY 05/10/22 [History Last Taken 10/20/22] fluoxetine 40 mg capsule (Prozac) 40 mg PO DAILY 05/10/22 [History Last Taken 10/20/22] Allergy/AdvReac Type Severity Reaction Status Date / Time No Known Allergies Allergy Verified 10/21/22 22:57 Social History Smoking Status: Never smoker alcohol intake: never substance use type: does not use caffeine: Yes (x2 week) ROS ROS ED ROS Narrative Past medical history: Reviewed Medications: Reviewed Social history: Noncontributory Review of systems: All systems negative except as indicated General: No fever Eyes: No visual changes ENT: No upper airway congestion, normal voice Neck: No neck pain Cardiovascular: No chest pain. Some lightheadedness Respiratory: No shortness of breath or cough Gastrointestinal: No abdominal pain, nausea vomiting or diarrhea Genitourinary: No dysuria Musculoskeletal: Denies myalgias no difficulty with ambulation Skin: No rash Neurological: No memory loss, confusion or any focal weakness EXAM Physical Exam Narrative Exam Narrative: Physical exam General: Patient appears relatively comfortable Head: Normocephalic, Atraumatic Eyes: Conjunctiva not pale ENT: Moist mucous membranes Neck: Supple, Nontender, No lymphadenopathy Cardiovascular: Regular rate, Regular rhythm Respiratory: No distress, CTA bilaterally Abdomen: Soft, Nontender, Nondistended Back: Nontender, Normal Inspection. Negative for: CVA tenderness Extremities: Nontender, No edema Skin: Normal color, No rash Neurological: Alert, Normal Strength, Normal Sensation Const Vital Signs: 10/21/22 22:53 10/21/22 23:14 Temperature 97.9 F Temperature Source Temporal Pulse Rate 108 H Respiratory Rate 15 Respiratory Effort Normal Respiratory Pattern Normal Blood Pressure 159/97 H Blood Pressure Mean 117 Pulse Ox 100 Oxygen Delivery Method Room Air MDM MDM MDM Narrative Medical decision making narrative: Patient has an unremarkable ED work-up. She has slight hypertension although she showed me on her blood pressure monitor at home that she has episodes of low blood pressure thus I am quite reluctant to start her on any antihypertensives. She has no other symptoms and she appears well. She has normal EKG. I believe she can be safely discharged to follow-up with her PCP and neurologist. If anything changes she is to return. I do not believe at this time she needs to be admitted. Interpretation of EKG by ED physician Normal sinus rhythm with a rate of 76. Normal NE and QTc intervals. No ischemic changes. Lab Data Labs: Laboratory Results - last 24 hr 10/21/22 23:50 WBC 8.1 RBC 4.40 Hgb 12.6 Hct 38.5 MCV 87.5 MCH 28.6 MCHC 32.7 RDW Std Deviation 42.5 RDW Coeff of Floridalma 13.2 Plt Count 332 MPV 10.2 Immature Gran % (Auto) 1.000 H Neut % (Auto) 58.2 Lymph % (Auto) 32.1 [place] % (Auto) 7.4 Eos % (Auto) 0.7 Baso % (Auto) 0.6 Absolute Neuts (auto) 4.7 Absolute Lymphs (auto) 2.59 Nucleated RBC % 0 Sodium 138 Potassium 3.7 Chloride 105 Carbon Dioxide 27.0 Anion Gap 6 BUN 12 Creatinine 0.88 Estim Creat Clear Calc 79.98 Est GFR (MDRD) Af Amer 104 Est GFR (MDRD) Non-Af 86 BUN/Creatinine Ratio 13.6 Glucose 89 Calcium 8.5 Total Bilirubin 0.30 AST 16 ALT 19 Alkaline Phosphatase 63 Troponin I High Sens < 3 L Total Protein 7.0 Albumin 3.3 Globulin 3.7 Albumin/Globulin Ratio 0.9 Discharge Plan Triage Chief Complaint: Dizziness ED Provider: Espinoza Montero Dx/Rx/DC Orders Clinical Impression: Dizziness, Lightheadedness, Hypertension Instructions: Controlling High Blood Pressure, Blood Pressure Check Steps Prescriptions: No Action L norgest/e.estradiol-e.estrad [Seasonique] 0.15 mg-30 mcg (84)/10 mcg (7) tablets,dose pack,3 month 1 tab PO DAILY fluoxetine [Prozac] 40 mg capsule 40 mg PO DAILY Primary Care Provider: Denise Tirado Referrals: Denise Tirado, [Primary Care Provider] - 3-5 Days Disposition Disposition: Home, Self Care
--- NOTE | 2022-10-21 23:40 | EKG12_ITS ---
Test Reason : DIZZY Blood Pressure : / mmHG Vent. Rate : 076 BPM Atrial Rate : 076 BPM P-R Int : 156 ms QRS Dur : 082 ms QT Int : 390 ms P-R-T Axes : 043 047 021 degrees QTc Int : 438 ms Normal sinus rhythm Normal ECG Confirmed by GABY STEPHENS, DEANGELO ([id number]), editor continuity and script JCARLOS MONTEMAYOR ([id number]) on 10/23/2022 11:31:40 A M Referred By: Confirmed By:DAVID GRIFFIN MD
[2022-10-22 00:17] LABS: Absolute Lymphocyte Count 2.59 X10^3/uL (0.83-4.51); Absolute Neutrophil Count 4.7 X10^3/uL (2.0-7.7); Basophil# 0.05 X10^3/uL; Basophil% 0.6 % (0-1); Eosinophil# 0.06 X10^3/uL; Eosinophils% 0.7 % (0-5); Hematocrit 38.5 % (37-47); Hemoglobin 12.6 g/dL (12.0-15.0); Lymphocyte # 2.59 X10^3/ul (0.83-4.51); Lymphocyte % 32.1 % (19-41); Mean Corp Hgb Conc 32.7 g/dL (32-36); Mean Corpuscular Hgb 28.6 pg (27.0-32.0); Mean Corpuscular Volume 87.5 fL (81-99); Mean Platelet Vol. 10.2 fl (6.2-12.0); Monocyte% 7.4 % (0-10); NRBC Flagged by Analyzer 0 % (0-5); Neutrophil # 4.68 X10^3/uL (2.7-7.7); Neutrophil % 58.2 % (47-70); Platelet Count 332 K/mm3 (150-450); RBC Distribution Width CV 13.2 % (11.6-14.6); RBC Distribution Width SD 42.5 fl (35.1-43.9); White Blood Count 8.1 K/mm3 (4.4-11.0)
[2022-10-22 00:22] LABS: ALB/GLOB Ratio 0.9 RATIO (0.9-2.4); AST(SGOT) 16 U/L (15-37); Alanine Aminotransfer ALT/SGPT 19 U/L (13-56); Albumin, Serum 3.3 g/dL (3.2-5.0); Alkaline Phosphatase 63 U/L (45-117); Anion Gap 6 (5-15); BUN 12 mg/dL (7-18); BUN/Creat Ratio 13.6 RATIO (10-20); Calcium,Total 8.5 mg/dL (8.5-10.1); Chloride 105 mmol/L (98-107); Creatinine, Serum 0.88 mg/dL (0.55-1.02); EST Glomerular Filtration Rate 86 mL/min (>60); Est Glom Filt Rate - Afr Amer 104 mL/min (>60); Estimated Creatinine Clearance 79.98 ml/min; Globulin 3.7 g/dL (2.2-4.2); Glucose 89 mg/dL (74-106); Potassium 3.7 mmol/L (3.5-5.1); Sodium Level 138 mmol/L (136-145); Troponin-I HS < 3 pg/mL (3.0-54.0)
== END 2022-10-22 01:02 | disposition home or self-care (01) ==
PROVIDERS: Emergency Provider Emergency Medicine; PCP Family Medicine; Visit Provider Emergency Medicine
DX: R42 Dizziness and giddiness (principal); I10 Essential (primary) hypertension
CPT/HCPCS: 80053; 84484; 85025; 93005; 99283

== ENCOUNTER 2022-11-14 21:28 | Emergency (ER) | payer MEDICAID, SELFPAY ==
[2022-11-14 21:29] VITALS: BP 124/79; PULSE 95; RESP 15; TEMP 36.7; O2SAT 100; BMI 34.0
--- NOTE | 2022-11-14 21:59 | EDS_ITS ---
HPI History of Present Illness Chief Complaint: Chest Pain [facility] Medical History (Updated 11/14/22 @ 22:[address] Xavier Maloney DO) Anxiety Home Medications L norgest/E estradiol-E estrad 0.15 mg-30 mcg (84)/10 mcg(7) tabs,3mos (Seasonique) 1 tab PO DAILY 05/10/22 [History Last Taken 10/20/22] fluoxetine 40 mg capsule (Prozac) 40 mg PO DAILY 05/10/22 [History Last Taken 10/20/22] Allergy/AdvReac Type Severity Reaction Status Date / Time No Known Allergies Allergy Verified 11/14/22 21:32 Social History Smoking Status: Never smoker alcohol intake: never substance use type: does not use caffeine: Yes (x2 week) EXAM Physical Exam Const Vital Signs: 11/14/22 21:29 11/14/22 22:26 11/14/22 22:37 Temperature 98.0 F Temperature Source Temporal Pulse Rate 95 78 Respiratory Rate 15 18 Blood Pressure 124/79 H 136/89 H Blood Pressure Mean 94 104 Pulse Ox 100 96 Oxygen Delivery Method Room Air Nasal Cannula Heart Score History: Slightly/Non-Suspicious ECG: Normal Age: </= 45 years Risk Factors: No Risk Factors Troponin: </= Normal Limit Score: 0 MDM MDM MDM Narrative Medical decision making narrative: HISTORY OF PRESENT ILLNESS: 22-year-old female presents with chest pain. This began approximate 5 hours prior to arrival is been intermittent. She is not having chest pain or dizzine ss at this time. Denies association with syncope. Denies focal numbness weakness slurred speech facial drooping, incoordination or loss of balance. She states she has history of POTS. She states she is tilt table test coming up on . She does endorse using estrogen-based hormonal contraceptives. She denies any cough, fever. Denies any trauma. Denies any volume loss such as vomiting or diarrhea. Denies any bleeding diathesis She also notes dizziness. No dizziness currently. Patient denies sudden onset of pain, no tearing sensation, no migratory symptoms, no new numbness, weakness or loss of sensation. Patient denies family history or personal history of Marfan syndrome or Vahid-Danlos. The patient denies recent surgery in the last 4 weeks or immobilization in the last 3 days, denies previous diagnosis of DVT or PE, hemoptysis, unilateral leg swelling or malignancy with treatment the last 6 months. Positive estrogen use REVIEW OF SYSTEMS: All other systems reviewed and are negative except as noted in the history of present illness. At least 10 review of systems reviewed and are negative except as noted in history of present illness. PHYSICAL EXAM: Nursing triage notes reviewed, Vital signs reviewed Constitutional: please see mdm HENT: MMM Eyes: Pupils equal round and reactive to light, Extraocular muscles intact Neck: No stridor, no JVD, full neck ROM Lungs: Clear to auscultation, No wheezing or rales. No increased work of breathing, no conversational dyspnea, no accessory muscle use, no nasal flaring. No respiratory distress noted Heart: Regular rate and rhythm, No murmurs, No rubs and No gallops, 2+ distal pulses (radial, femoral, posterior tibial) in all extremities Abdomen: Soft, there is no tenderness, rigidity, rebound or guarding, no obvious peritoneal signs, no palpable pulsatile abdominal masses, no auscultated abdominal bruit : No CVAT Extremities: No edema Neuro: Alert and oriented x3, neuro exam at baseline, cranial nerves II through XII are intact. No pain with extraocular muscle movement. There is negative test of skew. Normal speech. 5 of 5 strength in upper and lower extremities in flexion extension. Intact sensation to light touch in upper and lower extremity dermatomes. No truncal or extremity ataxia. No dysdiadochokinesia. Normal gait. 2+ reflexes. No meningeal signs. Negative Babinski. NIH of 0 Skin: No rash or lesions noted MEDICAL DECISION MAKING: Chief Complaint: Chest pain External records reviewed: Seen in October 2022 for dizziness and lightheadedness. EKG at that time showed normal sinus rhythm Labs showed no evidence of anemia, electrolyte abnormalities, patient was discharged Factors affecting care: Anxiety, extremities, no contraceptive Social determinants of health:Caffeine use,, denies methamphetamine or cocaine abuse History obtained from others: The patient's boyfriend Consults: none ALL IMAGES (IF OBTAINED) HAVE BEEN PERSONALLY REVIEWED AND INTERPRETED BY MYSELF. EKG with normal sinus rhythm, normal axis, normal intervals, no ST or T wave changes to suggest ischemia. No evidence of WPW, Brugada, ARVD. [facility] Narrative: Patient was hemodynamically stable, afebrile, nontoxic-appearing. No focal cardiopulmonary abnormalities. No stigmata of VTE on exam. I considered the following differential diagnosis: ACS, arrhythmia, anemia, electrolyte abnormality, pneumonia, pneumothorax, GI etiology, PE PE less likely given low risk Wells score. Aortic dissection is thought to be less likely given no sudden ripping or tearing pain, migratory pain, palpable pulse inequalities, no focal neurologic deficits concurrent with chest pain. Chance of dissection less than 04/1999. Pericarditis less likely given no pathognomonic EKG changes (no diffuse ST elevations, MA depressions). GI etiology (i.e. Boerhaave syndrome) less likely given no chest or neck crepitus, no vomiting or forced retching. I completed a HEART Score to screen for Major Adverse Cardiac Event (MACE) in this patient. The evidence indicates that the patient is very low risk for MACE and this is consistent with my clinical intuition. The risk of further workup or hospitalization for MACE is likely higher than the risk of the patient having a MACE. It is, therefore, in the patient?s best interest not to do additional emergent testing or to be hospitalized for MACE at this time. Shared Decision-Making No hospitalization indicated I have discussed with the patient my clinical impression and the result of the HEART Score to screen for MACE, as well as the risks of further testing and hospitalization. The HEART Score shows that the risk for MACE is less than 1%. Although the risk of MACE has not been completely eliminated, the risks of further testing or hospitalization for MACE likely exceed any potential benefit, and the patient agrees with not pursuing further emergent evaluation or hospitalization for MACE at this time. I completed a structured, evidence-based clinical evaluation to screen for acute stroke and neurologic deficits in this patient. The patient has a normal detailed neurologic exam, which is highly sensitive for dangerous causes of dizziness, vertigo, or loss of balance. The evidence indicates that the patient is very low risk for an acute neurologic emergency and this is consistent with my clinical intuition. The risk of further workup or hospitalization is likely higher than the risk of the patient having a stroke or other dangerous neurologic condition. It is, therefore, in the patient?s best interest not to do additional emergent testing or to be hospitalized at this time. I have discussed with the patient my clinical impression and the result of an evidence-based clinical evaluation to screen for stroke, as well as the risk of further testing and hospitalization. The evidence shows that the risk for stroke is less than 1%. Although the risk of stroke has not been completely eliminated, the risks of further testing or hospitalization likely exceed any potential benefit, and the patient agrees with not pursuing further emergent evaluation or hospitalization for stroke evaluation at this time. The patient and/or family, caregivers express understanding. The patient and/or family, caregivers agrees with the plan. Total critical care time today provided was at least 0 minutes. This excludes separately billable procedures. Critical care time (if documented) is secondary to the patient having high probability of clinically significant/life threatening deterioration in the patient's condition which required my urgent intervention. Xavier Maloney DO Lab Data Attestation: I reviewed the patient's lab results. Lab results narrative: CBC without leukocytosis, severe anemia, no thrombocytopenia. BMP without evidence of significant electrolyte abnormalities, no anion gap, no acute kidney injury. Troponin is negative, no evidence of myocardial ischemia Labs: Laboratory Results - last 24 hr 11/14/22 22:15 WBC 7.1 RBC 4.43 Hgb 12.5 Hct 39.1 MCV 88.3 MCH 28.2 MCHC 32.0 RDW Std Deviation 42.5 RDW Coeff of Floridalma 13.0 Plt Count 357 MPV 10.0 Immature Gran % (Auto) 0.100 Neut % (Auto) 56.2 Lymph % (Auto) 32.6 Eagle % (Auto) 9.7 Eos % (Auto) 0.7 Baso % (Auto) 0.7 Absolute Neuts (auto) 4.0 Absolute Lymphs (auto) 2.32 Nucleated RBC % 0 Sodium 139 Potassium 3.8 Chloride 106 Carbon Dioxide 27.0 Anion Gap 6 BUN 10 Creatinine 0.89 Estim Creat Clear Calc 79.08 Est GFR (MDRD) Af Amer 103 Est GFR (MDRD) Non-Af 85 BUN/Creatinine Ratio 11.2 Glucose 90 Calcium 8.7 Troponin I High Sens 3 Radiography Chest X-Ray - ED: Read by ED Physician Diagnostic Testing: Clinical Impression(s) from Imaging Studies Chest X-Ray 11/14/22 22:06 IMPRESSION: No radiographic evidence of acute cardiopulmonary disease. Electronically Signed: Prashanth Encarnacion MD at 22:30 EDT , I have personally reviewed the patient's chest x-ray. Chest x-ray is unremarkable for pulmonary edema, pneumothorax, pneumonia or focal cardiopulmonary abnormality. Discharge Plan Triage Chief Complaint: Chest Pain ED Provider: Xavier Maloney Dx/Rx/DC Orders Clinical Impression: Intermittent chest pain, Postural orthostatic tachycardia syndrome [POTS] Instructions: Chest Pain [facility] Prescriptions: No Action L norgest/e.estradiol-e.estrad [Seasonique] 0.15 mg-30 mcg (84)/10 mcg (7) tablets,dose pack,3 month 1 tab PO DAILY fluoxetine [Prozac] 40 mg capsule 40 mg PO DAILY Primary Care Provider: Denise Tirado Referrals: Denise Tirado, DO [Primary Care Provider] - Activity Restrictions/Additional Instructions: Thank you for trusting us with your care today! Please take Tylenol (2 pills, 650 mg), ibuprofen (2 pills, 400 mg) every 6 hours as needed for pain and fever control. Please return to the emergency department if your symptoms change or worsen. Please follow with your primary care physician for further outpatient evaluation and management. Disposition Disposition: Home, Self Care
--- NOTE | 2022-11-14 22:02 | EKG12_ITS ---
Test Reason : CHEST PAIN/DIZZINESS Blood Pressure : / mmHG Vent. Rate : 086 BPM Atrial Rate : 086 BPM P-R Int : 148 ms QRS Dur : 078 ms QT Int : 390 ms P-R-T Axes : 032 038 032 degrees QTc Int : 466 ms Normal sinus rhythm Normal ECG Confirmed by GABY STEPHENS, DEANGELO ([id number]), editorial manager JCARLOS MONTEMAYOR ([id number]) on 11/16/2022 8:58:33 AM Referred By: RACHAEL Confirmed By:DAVID GRIFFIN MD
--- NOTE | 2022-11-14 22:06 | RAD_ITS ---
INDICATION: chest pain EXAMINATION/TECHNIQUE: X-RAY - XR Chest 1 View COMPARISON: None. FINDINGS: LINES/DEVICES: None. LUNGS: No pulmonary edema or focal airspace consolidation. No sizable pleural effusion. No pneumothorax detected. MEDIASTINUM AND CARDIOVASCULAR STRUCTURES: Heart size within normal limits. Mediastinal contours unremarkable. BONES AND SOFT TISSUES: No acute findings. RAD/Chest 1 View (Portable) IMPRESSION: No radiographic evidence of acute cardiopulmonary disease. Electronically Signed: Prashanth Encarnacion MD at 22:30 EDT ,
[2022-11-14 22:28] LABS: Absolute Lymphocyte Count 2.32 X10^3/uL (0.83-4.51); Basophil# 0.05 X10^3/uL; Basophil% 0.7 % (0-1); Eosinophil# 0.05 X10^3/uL; Eosinophils% 0.7 % (0-5); Hematocrit 39.1 % (37-47); Hemoglobin 12.5 g/dL (12.0-15.0); Lymphocyte # 2.32 X10^3/ul (0.83-4.51); Lymphocyte % 32.6 % (19-41); Mean Corpuscular Hgb 28.2 pg (27.0-32.0); Mean Corpuscular Volume 88.3 fL (81-99); Monocyte# 0.69 X10^3/uL; Monocyte% 9.7 % (0-10); NRBC Flagged by Analyzer 0 % (0-5); Neutrophil % 56.2 % (47-70); Platelet Count 357 K/mm3 (150-450); RBC Distribution Width SD 42.5 fl (35.1-43.9); Red Blood Count 4.43 M/mm3 (4.2-5.4); White Blood Count 7.1 K/mm3 (4.4-11.0)
[2022-11-14 22:37] VITALS: BP 136/89; PULSE 78; RESP 18; O2SAT 96
[2022-11-14 22:46] LABS: Anion Gap 6 (5-15); BUN 10 mg/dL (7-18); BUN/Creat Ratio 11.2 RATIO (10-20); Calcium,Total 8.7 mg/dL (8.5-10.1); Chloride 106 mmol/L (98-107); Creatinine, Serum 0.89 mg/dL (0.55-1.02); EST Glomerular Filtration Rate 85 mL/min (>60); Est Glom Filt Rate - Afr Amer 103 mL/min (>60); Estimated Creatinine Clearance 79.08 ml/min; Glucose 90 mg/dL (74-106); Potassium 3.8 mmol/L (3.5-5.1); Sodium Level 139 mmol/L (136-145); Troponin-I HS 3 pg/mL (3.0-54.0)
[2022-11-15 00:08] VITALS: BP 137/97; PULSE 88; RESP 16; O2SAT 99
== END 2022-11-15 00:10 | disposition home or self-care (01) ==
PROVIDERS: Emergency Provider Emergency Medicine; PCP Family Medicine; Visit Provider Emergency Medicine
DX: R07.9 Chest pain, unspecified (principal); G90.A Postural orthostatic tachycardia syndrome [POTS]; F41.9 Anxiety disorder, unspecified; Z79.899 Other long term (current) drug therapy
CPT/HCPCS: 71045; 80048; 84484; 85025; 93005; 99284; A4216

== ENCOUNTER 2022-11-16 12:52 | Emergency (ER) | payer MEDICAID, SELFPAY ==
[2022-11-16 12:52] VITALS: BP 157/104; PULSE 99; RESP 16; TEMP 37; O2SAT 100; BMI 33.8
--- NOTE | 2022-11-16 13:12 | EDS_ITS ---
HPI History of Present Illness Chief Complaint: Shortness of Breath Detail of Chief Complaint: Shortness of breath and cough Informant: patient and spouse/S.O. Onset/Context/Timing Onset: Hours Context: Sudden Onset Timing: Intermittent Quality: Patient reports shortness of breath at rest and nonproductive cough Location: Respiratory Current Severity: Mild Worsened by: Nothing specific Relieved by: Nothing Associated Symptoms Associated Symptoms: No constitutional symptoms Narrative Narrative: Patient 22-year-old who presents with shortness of breath and she does have a cough. This started several hours ago. She denies sore throat. She denies fever or chills. She denies history of PE or DVT. She has leg pain, swelling discoloration. She denies recent surgery. Denies immobilization. She is not a smoker. She was seen earlier this week and had a significant work-up which was negative. Dr. Maloney' record was reviewed and quite thorough. Patient denies GI symptoms. She denies symptoms. She denies neurologic symptoms. Prior similar symptoms: No Recent Illness/Hospitalization: Yes PFSH [facility] Medical History Anxiety Home Medications L norgest/E estradiol-E estrad 0.15 mg-30 mcg (84)/10 mcg(7) tabs,3mos (Seasonique) 1 tab PO DAILY 05/10/22 [History Last Taken 10/20/22] fluoxetine 40 mg capsule (Prozac) 40 mg PO DAILY 05/10/22 [History Last Taken 10/20/22] Allergy/AdvReac Type Severity Reaction Status Date / Time No Known Allergies Allergy Verified 11/16/22 12:54 Social History Smoking Status: Never smoker alcohol intake: never substance use type: does not use caffeine: Yes (x2 week) ROS ROS ED Constitutional Constitutional ED: Denies chills, fever(s), subjective, sweats or weight loss Eyes Eyes: Denies blurry vision, change in vision or diplopia ENT ENT ED: Denies ear pain, rhinorrhea or sore throat Cardiovascular Cardiovascular: Denies chest pain, orthopnea, palpitations, paroxysmal nocturnal dyspnea or racing heartbeat Respiratory/Chest Respiratory/Chest: Denies cough, dyspnea, dyspnea on exertion, orthopnea, paroxysmal nocturnal dyspnea or sputum Gastrointestinal Gastrointestinal: Denies nausea or vomiting Genitourinary Genitourinary ED: Denies dysuria, hematuria or urinary frequency Musculoskeletal Musculoskeletal: Denies arthralgias, back pain or myalgias Neurologic Neurologic: Denies headache(s) or paresthesias Endocrine Endocrinology: Denies cold intolerance or heat intolerance EXAM Physical Exam Const Vital Signs: 11/16/22 12:52 11/16/22 13:01 Temperature 98.6 F Temperature Source Temporal Pulse Rate 99 Respiratory Rate 16 Respiratory Effort Normal Non-Labored Blood Pressure 157/104 H Blood Pressure Mean 121 Pulse Ox 100 Oxygen Delivery Method Room Air Room Air Positive well nourished and well developed General Appearance ED: well developed and NAD; Negative for cyanotic, diaphoretic or pallor HEENT Reports moist mucous membranes HEENT Narrative: Head is atraumatic normocephalic. Ears normal. TMs are normal. Nares patent. Posterior pharynx shows mild erythema without exudate. Uvula is midline. Eyes PERRL and EOMs intact bilaterally General Eye ED: Negative for pale conjunctiva or scleral icterus Neck no lymphadenopathy, supple and no JVD Chest Wall inspection of chest normal Resp normal respiratory effort and clear to auscultation bilaterally Cardio regular rate, regular rhythm, S1 normal heart sound, S2 normal heart sound and no murmurs GI normal to inspection, nondistended, normoactive bowel sounds, non-tender, non- distended and no masses; Negative for hepatosplenomegaly Extremity normal to inspection Extremity Narrative: There is no asymmetry, swelling, discoloration, leg vein distention, palpable cords or tenderness along the distribution of the deep venous system. Neuro oriented x3, CN's II-XII intact bilaterally and no sensory deficits noted Psych Mood & Affect: depressed Skin no rashes or lesions noted, no wounds and skin turgor normal General Skin Exam: elasticity normal; Negative for jaundice or pallor MDM MDM MDM Narrative Medical decision making narrative: Patient coughing several times during history and physical and it nonproductive and her symptoms suspect this is probably a early viral upper respiratory infection. Since patient is not tachypneic, tachycardic or hypoxic in my opinion patient does not need imaging especially since her lung exam is normal. Her history is consistent with an upper respiratory infection and not a pulmonary embolus and reason why D-dimer was not obtained even though she is not PERC negative since she is on control pills. History & Record Review Additional record(s) reviewed:: Prior ED visit and Prior labs Treatment and Re-Evaluation :: Patient was informed that this most likely represents respiratory infection. Patient blood pressure is elevated. This will need to be checked by her doctor. Discharge Plan Triage Chief Complaint: Shortness of Breath ED Provider: Chase Goode Dx/Rx/DC Orders Clinical Impression: Elevated blood pressure reading, Cough in adult patient Instructions: ED Hypertension, To Be Confirmed, ED URI, Viral, No Abx (Adult) Prescriptions: No Action L norgest/e.estradiol-e.estrad [Seasonique] 0.15 mg-30 mcg (84)/10 mcg (7) tablets,dose pack,3 month 1 tab PO DAILY fluoxetine [Prozac] 40 mg capsule 40 mg PO DAILY Primary Care Provider: Denise Tirado Referrals: Denise Tirado, [Primary Care Provider] - 1-2 Weeks Disposition Disposition: Home, Self Care
== END 2022-11-16 13:34 | disposition home or self-care (01) ==
PROVIDERS: Emergency Provider Emergency Medicine; PCP Family Medicine; Visit Provider Emergency Medicine
DX: R05.9 Cough, unspecified (principal); R03.0 Elevated blood-pressure reading, without diagnosis of hypertension
CPT/HCPCS: 99282

== ENCOUNTER → 2023-01-03 | Outpatient (CLI) | payer MEDICAID, SELFPAY ==
--- NOTE | 2023-01-03 13:22 | STRESSREP ---
Stress Test Report Exercise stress test. 22-year-old lady with a history of chest pain Stress protocol: Resting EKG demonstrates normal sinus rhythm with a rate of 75 bpm resting blood pressure is 122/70 mmHg. The patient exercised according to the regular [facility] protocol for a total duration of 9 minutes attaining a maximum heart rate of 187 bpm which was 93% of maximum predicted heart rate; the maximum workload was 10.1 metabolic equivalents. At rest there were no ST or T wave changes noted to suggest ischemia and at peak exercise upsloping ST changes only were noted which did not meet the criteria for ischemia. No clinical angina was noted the test was terminated due to the target heart rate being achieved/fatigue. The peak blood pressure was 178/70 mmHg. Rate-pressure product was 28,900. Conclusion: Exercise stress test with no EKG criteria for ischemia at a high workload No arrhythmias noted No clinical angina.
== END | disposition home or self-care (01) ==
LOC: CVS 10:44
PROVIDERS: PCP Family Medicine; Referring Provider Nurse Practitioner Gerontology; Visit Provider Nurse Practitioner Gerontology
DX: R07.9 Chest pain, unspecified (principal)
CPT/HCPCS: 93017

== ENCOUNTER → 2023-05-24 | Outpatient (CLI) | payer MEDICAID, SELFPAY ==
[2023-05-24 15:02] LABS: Vitamin B12 173 pg/mL (211-911)
[2023-05-24 15:12] LABS: Free T3 2.5 pg/mL (2.18-3.98); T4 Free Direct 0.86 ng/dL (0.76-1.46); Thyroid Stim Hormone (TSH) 2.64 uIU/mL (0.358-3.74)
--- OUTSIDE RECORDS SUMMARY | 2023-05-24 16:10 | XMS RPT_ITS | CCD ---
Author Name Unknown Address [address] [place] [address] Organization [facility] Care Team Providers Care [employer] Officer Name Role Phone Unavailable Primary Care Provider UnavailPINA Palma Attending Unavailable PINA WRIGHT Admitting Unavailable Bernadette Tirado DO Primary Care Provider Bernadette Tirado DO Primary Care Provider [phone] HEMALATHA ANTHONY Attending Unavailable BERNADETTE TIRADO Referring Unavailable HEMALATHA ANTHONY Referring Unavailable BERNADETTE TIRADO Primary Care Unavailable HEMALATHA ANTHONY Attending Unavailable BERNADETTE TIRADO Primary Care Unavailable HEMALATHA ANTHONY Referring Unavailable BERNADETTE TIRADO Primary Care Unavailable HEMALATHA ANTHONY Attending Unavailable BERNADETTE TIRADO Primary Care Unavailable Medications Completed/Discontinued Medications Medication Drug Class(es) Dates Sig (Normalized) Sig (Original) cetirizine hydrochloride 10 mg oral tablet (1 source) Histamine-1 Receptor Antagonist Start: 05-09-2023 take 1 tablet by mouth once daily cetirizine (ZYRTEC) 10 mg tablet Take 1 tablet by mouth once daily. 30 tablet 2 05/09/2023 Active Problems Active Problems Problem Classification Problem Date Documented Date Episodic/Chronic Abdominal pain (2 sources) Indigestion; Translations: [Epigastric pain] Onset: 05-18-2023 05-18-2023 Episodic Esophageal disorders (5 sources) Gastroesophageal reflux disease without esophagitis; Translations: [Gastro-esophageal reflux disease without esophagitis] Onset: 09-12-2022 10-04-2022 Chronic Nausea and vomiting (2 sources) Nausea; Translations: [Nausea] Onset: 05-18-2023 05-18-2023 Episodic Other circulatory disease (1 source) Orthostatic hypotension; Translations: [Orthostatic hypotension] Episodic Other injuries and conditions due to external causes (1 source) Injury of head; Translations: [Unspecified injury of head, initial encounter] Episodic Other nervous system disorders (1 source) Polyneuropathy, unspecified; Translations: [Small fiber neuropathy] Onset: 01-09-2023 Chronic Past or Other Problems Problem Classification Problem Date Documented Da te Episodic/Chronic Conditions associated with dizziness or vertigo (6 sources) Dizziness; Translations: [Dizziness and giddiness] Onset: 07-03-2022 10-04-2022 Episodic Headache; including migraine (5 sources) Headache; Translations: [Headache] Onset: 10-04-2022 10-04-2022 Episodic Results Test Name Value Interpretation Reference Range Facil ity Vital Signs Date Time Vital Sign Value Performing Clinician Aurora hendricks 10-04-2022 13:25-0400 Body weight 77.93 kg Hemalatha Anthony PA-C Work Phone: [facility] 10-04-2022 13:25-0400 Respiratory rate 18 /min Hemalatha Anthony PA-C Work Phone: [facility] 10-04-2022 13:25-0400 SaO2% (BldA) [Mass fraction] 99 % Hemalatha Anthony PA-C Work Phone: [facility] Encounters Encounter Date Encounter Type Care Provider Facility Start: 05-18-2023 End: 05-18-2023 ambulatory HEMALATHA ANTHONY Facility:[facility] Start: 05-18-2023 End: 05-18-2023 Subsequent hospital visit by physician [facility] Work Phone: Nuclear Medicine Procedures Date Procedure Procedure Detail Performing Clinician Start: 05-18-2023 Gastric emptying deja ging study Hemalatha Anthony PA-C Work Phone: Plan of Treatment Date Care Activity Detail Author Start: 12-07-2024 Urine microalbumin profile DTaP,Tdap,Td Vaccine (6 - Td or Tdap) [facility] Start: 04-16-2023 Depression Assessment Depression Assessment [facility] Start: 12-15-2022 Covid-19 Vaccine () Covid-19 Vaccine () [facility] Start: 12-15-2022 Influenza vaccination [facility] Start: 2022 PAP TESTING PAP TESTING [facility] Start: 2022 Screening for malignant neoplasm of cervix Pap Testing [facility] Start: 04-16-2022 DEPRESSION ASSESSMENT DEPRESSION ASSESSMENT [facility] Start: 12-15-2021 [facility] Start: 02-21-2021 COVID-19 VACCINE (3 - Booster for Pfizer series) COVID-19 VACCINE (3 - Booster for Pfizer series) [facility] Start: 11-16-2020 COVID-19 VACCINE (3 - Booster for Pfizer series) COVID-19 VACCINE (3 - Booster for Pfizer series) [facility] Start: 11-16-2020 COVID-19 VACCINE (3 - Pfizer series) COVID-19 VACCINE (3 - Pfizer series) [facility] Start: 10-04-2019 CHLAMYDIA SCREENING (18-24) CHLAMYDIA SCREENING (18-24) [facility] Start: 10-04-2019 GC (GONORRHEA) SCREENING (18-24) GC (GONORRHEA) SCREENING (18-24) [facility] Start: 10-04-2019 HEPATITIS C SCREENING HEPATITIS C SCREENING [facility] Start: 10-04-2019 Hepatitis C screening Hepatitis C Screening [facility] Start: 10-04-2019 HIV SCREENING HIV SCREENING [facility] Start: 10-04-2019 HIV screening HIV Screening [facility] Start: 10-04-2019 Screening for Chlamydia trachomatis Chlamydia Screening (18-24) [facility] Start: 2017 Meningococcal B Vaccine: Consider Based On Risk (1 of 2 - Patient Seeks Protection) Meningococcal B Vaccine: Consider Based On Risk (1 of 2 - Patient Seeks Protection) [facility] Start: 2017 MENINGOCOCCAL B: Consider based on risk (1 of 2 - Patient Seeks Protection) MENINGOCOCCAL B: Consider based on risk (1 of 2 - Patient Seeks Protection) [facility] Start: 10-04-2015 PEDS TO ADULT TRANSITION ANNUAL ASSESSMENT PEDS TO ADULT TRANSITION ANNUAL ASSESSMENT [facility] Start: 2013 Adult depression screening assessment DEPRESSION SCREENING [facility] Start: 2013 PEDS TO ADULT TRANSITION INITIAL DISCUSSION PEDS TO ADULT TRANSITION INITIAL DISCUSSION [facility] Start: 2012 HPV VACCINE (1 - 2-dose series) HPV VACCINE (1 - 2-dose series) [facility] Start: 2012 Urine microalbumin profile [facility] Start: 10-04-2011 MENINGOCOCCAL B: Consider based on risk (1 of 2 - Risk Bexsero 2-dose series) MENINGOCOCCAL B: Consider based on risk (1 of 2 - Risk Bexsero 2-dose series) [facility] Start: 2010 HPV VACCINE (1 - 2-dose series) HPV VACCINE (1 - 2-dose series) [facility] Start: 10-04-2007 PNEUMOCOCCAL (1 - PCV) PNEUMOCOCCAL (1 - PCV) [facility] ic Cardiovascular funct ion eval w/tilt table w/mntr TILT TABLE EVALUATION Cardiology Routine Orthostatic hypotension Ordered: 10/04/2022 [facility] Work Phone: Immunizations Immunization Date Immunization Notes Care Provider Saritha montgomery 01-19-2022 influenza virus vaccine, unspecified formulation Hemalatha Anthony PA-C Work Phone: [facility] 10-11-2007 measles, mumps and rubella virus vaccine Krysten Giraldo APRN.[facility] Work Phone: [facility] Work Phone: 10-11-2007 varicella virus vaccine Vanessa Giraldo APRN.[facility] Work Phone: [facility] Work Phone: 05-10-2006 DTaP-hepatitis B and poliovirus vaccine Krysten Giraldo APRN.[employer] EX[employer] Work Phone: [facility] Work Phone: 05-10-2006 pneumococcal conjuga te vaccine, 7 valent Krysten Giraldo APRN.PARTS EXPEDITER Work Phone: [facility] Work Phone: 05-10-2006 varicella virus vaccine Vanessa Giraldo APRN.[employer]S EXPEDITER Work Phone: [facility] Work Phone: 03-27-2005 diphtheria, tetanus toxoids and acellular pertussis vaccine Krysten Giraldo APRN.[employer]S EXPEDITER Work Phone: [facility] Work Phone: 03-27-2005 haemophilus influenz ae type b vaccine, HbOC conjugate Krysten Enzo BUTANE COMPRESSOR OPERATOR.[employer]S EXPEDITER Work Phone: [facility] Work Phone: 03-27-2005 measles, mumps and rubella virus vaccine Krysten Enzo BUTANE COMPRESSOR OPERATOR.PARTS EXPEDITER Work Phone: [facility] Work Phone: 03-27-2005 pneumococcal conjuga te vaccine, 7 valent Krysten Enzo BUTANE COMPRESSOR OPERATOR.PARTS EXPEDITER Work Phone: [facility] Work Phone: 02-22-2002 haemophilus influenz ae type b vaccine, HbOC conjugate Krysten Enzo BUTANE COMPRESSOR OPERATOR.PARTS EXPEDITER Work Phone: [facility] 02-07-2002 diphtheria, tetanus toxoids and acellular pertussis vaccine Krysten Enzo BUTANE COMPRESSOR OPERATOR.PARTS EXPEDITER Work Phone: [facility] 02-07-2002 pneumococcal conjuga te vaccine, 7 valent Krysten Enzo BUTANE COMPRESSOR OPERATOR.PARTS EXPEDITER Work Phone: [facility] 02-07-2002 poliovirus vaccine, inactivated Krysten Enzo BUTANE COMPRESSOR OPERATOR.PARTS EXPEDITER Work Phone: [facility] 2001 diphtheria, tetanus toxoids and acellular pertussis vaccine Krysten Enzo BUTANE COMPRESSOR OPERATOR.PARTS EXPEDITER Work Phone: [facility] 2001 haemophilus influenz ae type b vaccine, HbOC conjugate Krysten James BUTANE COMPRESSOR OPERATOR.PARTS EXPEDITER Work Phone: [facility] 2001 hepatitis B vaccine, pediatric or pediatric/adolescent dosage Krysten Enzo BUTANE COMPRESSOR OPERATOR.PARTS EXPEDITER Work Phone: [facility] 2001 poliovirus vaccine, inactivated Krysten Enzo BUTANE COMPRESSOR OPERATOR.PARTS EXPEDITER Work Phone: [facility] 2001 hepatitis B vaccine, pediatric or pediatric/adolescent dosage Krysten Enzo BUTANE COMPRESSOR OPERATOR.PARTS EXPEDITER Work Phone: [facility] Payers Date Payer Category Payer Medicaid [employer] [id number] 2022-Present [phone] [address] [place] [address] Medicaid [id number] 2022 Medicaid [id number] 2018 Private Health Insurance [facility] UMR CHOICE PLUS [id number] 2018-Present [phone] [address] [address] [place] [address] O [id number] 2018 Private Health Insurance [facility] UMR CHOICE PLUS [id number] 2018-Present [phone] [address] [address] [place] [address] HMO [id number] 2018 Unknown [id number] Social History Date Type Detail Facility Tobacco smoking stat [facility] Smokes tobacco daily [facility] Work Phone: Start: 06-29-2009 End: 05-09-2023 Alcohol intake Not Asked [facility] Start: 2001 Sex Assigned At Not on file [facility] Start: 07-24-2021 End: 08-03-2021 Exposure to SARS-CoV-2 (event) Not sure [facility] Work Phone: Start: 10-04-2022 [facility] History of tobacco use Current smoker [facility] History of tobacco use Cigarette Smoker C [facility] Start: 10-04-2022 Tobacco use and exposure Smokeless tobacco non-user [facility] Start: 10-04-2022 End: 05-09-2023 History of Social function [facility] Start: 10-04-2022 End: 05-09-2023 Tobacco use panel [facility] National Score (1-100), lower number is lower risk 99 [facility] Clinical Notes 08-03-2021 to 05-18-2023 Moi Portillo, RT(R) - 05/18/2023 8:00 AM ESTTelephone Encounter - Pita Hickey FISHING BOAT MATE - 02/22/2023 12:49 PM ESTTelephone Encounter - Armando Anderson RN - 02/22/2023 11:51 AM ESTPatient Instructions Note Date & Type Note Facility 05-18-2023 Note HNO ID: [id number] Author: MOI PORTILLO RT(R) Service: Nuclear Medicine Author Type: Technologist Type: Progress Notes Filed: 05/18/2023 10:18 Note Text: RADIOLOGY SERVICE PROGRESS NOTE SERVICE DATE: 05/18/2023 SERVICE TIME: 07:55 AM PATIENT IDENTITY VERIFICATION COMPLETED USING TWO (2) STANDARD IDENTIFIERS: Name and Date of confirmed by patient verbally FALL SCREENING: Has the patient had 2 falls in the last year or 1 fall with injury or currently using an Ambulatory Assistive Device (Walker, Cane, Wheelchair, Crutches, etc.)? No PATIENT GENDER DATA: .female : No status: No ALLERGIES: Reviewed and unchanged MEDICATIONS REVIEWED: No PATIENT RELEVANT IMPLANT DATA REVIEWED: Not Applicable PATIENT PRESENTS WITH AN IMPLANTABLE OR ATTACHED TREE INSPECTOR: N/A CREATININE: Creatinine Date Value Ref Range Status 01/09/2023 0.77 0.58 - 0.96 mg/dL Final Estimated Glomerular Filtration Rate Date Value Ref Range Status 01/09/2023 113 >=60 mL/min/1.73m? Final Comment: Estimated Glomerular Filtration Rate (eGFR) is calculated using the 2020 CKD-EPI creatinine equation. This equation utilizes serum creatinine, sex, and age as parameters. The creatinine assay has traceable calibration to isotope dilution-mass spectrometry. Refer to KDIGO guidelines for clinical interpretation. In patients with unstable renal function, e.g. those with acute kidney injury, the eGFR may not accurately reflect actual GFR. P.O.C.T. RESULTS: N/A May 18, [address] PERFORMED: No IV SITE: NM only - not applicable, oral or physician administered agents given to patient POST EXAM PIV STATUS: Not applicable PROCEDURE TYPE: NM GET: 1.1 mCi Tc99m SULFUR COLLOID was administered orally via 4 ounces of Egg Beaters,2 pieces of toast, 1 ounce of jelly with 8 ounces of water orally ADMINISTRATION TIME: 08:10 PATIENT DISCHARGED TO: Ambulatory patient, left AR department area. A Diagnostic radioactive procedure has taken place, with no further precautions necessary other than routine body substance precautions. More information regarding radiation safety can be found using this link: [email or web address] 20Diagnostic%20Nuclear%20Medici ne%[email or web address] SIGNATURE: RT Prasanna(R) PATIENT NAME: Ana Paula Leonardo DATE: May 18, 2023 TIME: 10:20 AM PAGER/CONTACT #: [facility] 05-18-2023 History of Presen t illness Narrative RADIOLOGY SERVICE PROGRESS NOTE SERVICE DATE: 05/18/2023 SERVICE TIME: 07:55 AM PATIENT IDENTITY VERIFICATION COMPLETED USING TWO (2) STANDARD IDENTIFIERS: Name and Date of confirmed by patient verbally FALL SCREENING: Has the patient had 2 falls in the last year or 1 fall with injury or currently using an Ambulatory Assistive Device (Walker, Cane, Wheelchair, Crutches, etc.)? No PATIENT GENDER DATA: .female : No status: No ALLERGIES: Reviewed and unchanged MEDICATIONS REVIEWED: No PATIENT RELEVANT IMPLANT DATA REVIEWED: Not Applicable PATIENT PRESENTS WITH AN IMPLANTABLE OR ATTACHED TREE INSPECTOR: N/A CREATININE: Creatinine Date Value Ref Range Status 01/09/2023 0.77 0.58 - 0.96 mg/dL Final Estimated Glomerular Filtration Rate Date Value Ref Range Status 01/09/2023 113 >=60 mL/min/1.73m Final Comment: Estimated Glomerular Filtration Rate (eGFR) is calculated using the 2020 CKD-EPI creatinine equation. This equation utilizes serum creatinine, sex, and age as parameters. The creatinine assay has traceable calibration to isotope dilution-mass spectrometry. Refer to KDIGO guidelines for clinical interpretation. In patients with unstable renal function, e.g. those with acute kidney injury, the eGFR may not accurately reflect actual GFR. P.O.C.T. RESULTS: N/A May 18, [address] PERFORMED: No IV SITE: NM only - not applicable, oral or physician administered agents given to patient POST EXAM PIV STATUS: Not applicable PROCEDURE TYPE: NM GET: 1.1 mCi Tc99m SULFUR COLLOID was administered orally via 4 ounces of Egg Beaters,2 pieces of toast, 1 ounce of jelly with 8 ounces of water orally ADMINISTRATION TIME: 08:10 PATIENT DISCHARGED TO: Ambulatory patient, left AR department area. A Diagnostic radioactive procedure has taken place, with no further precautions necessary other than routine body substance precautions. More information regarding radiation safety can be found using this link: [email or web address]% 20Nuclear%20Medicine%20Procedur [email or web address] SIGNATURE: RT Prasanna(Rachelle) PATIENT NAME: Ana Paula Leonardo DATE: May 18, 2023 TIME: 10:20 AM PAGER/CONTACT #: documented in this encounter [facility] 05-09-2023 Note HNO ID: [id number] Author: HEMALATHA ANTHONY PA-C Service: ? Author Type: Physician Accountant Clerk Type: Progress Notes Filed: 05/09/2023 11:22 Note Text: ESTABLISHED PATIENT VISIT Last visit: 01/09/23 ASSESSMENT/PLAN: 1. POTS (postural orthostatic tachycardia syndrome) - ICD9: 427.89, ICD10: G90.A (primary diagnosis) Patient with tilt table suggestive of POTS with increase in heart rate from 73-110. Minimal decrease in blood pressure, not diagnostic for orthostatic hypotension. Patient did try conservative measures for 2 months, but quickly stopped exercising as it seemed to make symptoms worse. Did discuss further conservative measures that may be beneficial including continuing exercise, doing low impact exercise until she regains conditioning, and then slowly increasing to cardiovascular exercise. Did give education that may be beneficial. Did also refer her to shared medical appointments with Dr. Karimi for POTS management. Regarding medications. Did discuss medications that may be beneficial including propranolol as patient is also experiencing headaches. Blood pressure is 128/83, there is a mild orthostatic component to patient's tilt able test, but not diagnostic for orthostatic hypotension. We will try small dose of propranolol, 20 mg to take daily for symptom management. Can titrate up as needed. Discussed common side effects including lightheadedness and patient will monitor her blood pressure at home. Patient without any history of asthma. 2. Small fiber neuropathy - ICD9: 356.9, ICD10: G62.9 Patient's exam at last appointment did demonstrate signs of small nerve fiber abnormalities. She deferred work-up for this in the last appointment, but due to persistence of symptoms she would like this to be evaluated. We will obtain basic blood work for evaluating small nerve neuropathy, as well as skin biopsy. 3. Nausea - ICD9: 787.02, ICD10: R11.0 4. Dyspepsia - ICD9: 536.8, ICD10: R10.13 Patient also reporting regurgitation. Notes that her grandfather had history of Lopez's esophagus leading to esophageal cancer and is concerned. Notes that she does have fluctuating constipation and diarrhea, feels that food sits in her stomach for long periods of time. Will order gastric emptying study with food to evaluate for gastroparesis. 5. Other headache Patient also reporting headaches that only occur after she stands up and gets lightheaded. Range in severity and range in length including anywhere from minutes to hours. Only occurs after she gets lightheaded from standing, feels very tired afterwards. Occasionally associated with sensitivity to light and nausea. Likely positional headache, MRI of the brain obtained at [facility] is negative for signs of intracranial hypotension, no other etiology found on MRI imaging. At this time, we will treat both her POTS symptoms and headaches with propranolol as noted above. Patient is amenable to treatment plan of care at this time, all questions were answered. Patient to follow-up following the completion of her studies. Follow-up: 3 months CHIEF COMPLAINT: follow up HISTORY OF PRESENT ILLNESS: Ana Paula Leonardo is a 22 year old female, There were no vitals taken for this visit. with a PMH significant for headache and POTS. Last seen for POTS on 01/09/23. Conservative and SMA. Tried small dose of propranolol, did not tolerate so tried metoprolol. Small fiber neuropathy work up with skin biopsy (did not get). B12 was 212. Gastric empyting study (did not schedule). Patient presents for follow-up. Since last appointment, patient has been tolerating metoprolol 25 mg, but notes she has gained about 30 pounds with this medication. Also notes that at times it seems to make her dizziness worse. Does note that since starting the metoprolol her headaches have completely resolved. Also notes that she no longer has significant dizziness with quick position changes and attributes it to this medication. Notes that since last appointment she has had 2 episodes of syncope which is new for her. First episode was in the shower and second episode was when she was playing videogames 1 month ago. Both episodes were not witnessed, unsure how long she lost consciousness for, notes that prior to the episodes she felt very hot, sweaty, cold and dizzy. Notes she woke up after the second episode and her cheek was bitten but no tongue biting, incontinence. Was a little bit drowsy afterwards, but no significant postictal state. Has not happened since. Has been driving since these episodes. Still continues to have chest pain as well, has not seen cardiology in the last few months. Patient has been drinking about 100 ounces of water a day, does not exercise and has not started shared medical appointments. She does wear compression and feels this helps her. Also notes her sleep is very poor. Notes that she wakes up frequently throughout (more content not included)... [facility] 02-22-2023 Miscellaneous Notes Faxed Prior Authorization to [facility] [phone] for Metoprolol 25 mg, 11 pages 02/22/2023. Placed documents in Debbie Molina location. Patient notified MyChart. iPta Hickey LPN Prior Authorization Documentation Prior authorization requested for the following medication: Medication: metoprolol Provider: [employer] Name: [facility] Phone number: [phone] Patient ID number: [id number] [facility] Patient reports she needs prior auth for metoprolol documented in this encounter [facility] 01-09-2023 Note HNO ID: [id number] Author: Hemalatha Anthony PA-C Service: ? Author Type: Physician Accountant Clerk Type: Progress Notes Filed: 01/09/2023 4:34 PM Note Text: [facility] Follow up CC: Headache Follow up Last Visit: 10/04/22 Assessment AND Plan: Ana Paula Leonardo is a 22 year old female with a history of GERD. Her examination demonstrates mild small fiber abnormalities to the hands and feet as noted above. Negative orthostats today (noted difficulty with reading on machine, needed manual). Patient with lightheadedness and presyncope onset a few months ago. Onset with sitting to standing, exercise. Has been evaluated by cardiology at [facility] with normal ECHO, normal holter, and normal MRI brain. Did obtain tilt table test that was read as normal, however, does appear to have a significant drop in blood pressure and significant raise in heart rate (88-153) when upright. This is concerning for dysautonomia. Discussed repeating the test in our system and patient would like to repeat this. Will order repeat tilt table test. Additionally, minimal small fiber abnormalities were found on sensory exam as noted above concerning for possible small fiber neuropathy. Discussed skin biopsy for small fiber nerves and patient elected to have tilt table done first and then obtain biopsy and further autonomic testing. Discussed conservative management for dysautonomia including increasing water intake, increasing salt intake, compression, and exercise. Gave patient further instructions in her after visit summary. Patient voiced understanding to these instructions. Patient agreeable treatment plan of care at this time, questions were answered. Patient to follow-up in 2 to 3 months following the completion of her tilt able test. Ana Paula was seen today for new patient. Today: Patient is here for follow up. Tilt consistent with POTS. Last seen 10/04/22, evidence of small fiber changes on exam. LH and presyncope starting few months prior. Deferred skin biopsy and neuropathy work-up. Patient with persistent symptoms. Notes that she did try increasing her water intake but this did not help. Also tried exercising but seem to make things worse. Tried increasing her salt through foods with no improvement. Notes that she still getting daily lightheadedness with position change, no episodes of syncope or falls. Notes that she typically gets a headache after she has lightheadedness, previous MRI imaging at [facility] was negative. Notes that the headaches will range from mild to moderate, will last anywhere from minutes to hours. When the headaches are severe she does get some mild sensitivity to light, but otherwise headaches are asymptomatic. Notes that when she feels very tired. Lightheadedness occurs equally throughout the day, is not worse after eating or in the morning. Of note, patient notes that the last 2 months has been getting chest pains when she is active, takes a deep breath or yawns. Has seen cardiology, stress test was negative. Notes that the pain is to the left chest wall, does not menstruate. No other new symptoms. The patient's prior records were reviewed including and lab testing, imaging, and procedures done since their last visit with me. Review of symptoms including constitutional, eyes, ENT, neck, respiratory, cardiovascular, GI, , musculoskeletal, hematologic, oncologic, endocrine, and psychiatric categories is unchanged. No new details in the family history or social history were offered by the patient. No past medical history on file. No past surgical history on file. ALLERGIES No Known Allergies Current Medications: FLUoxetine (PROZAC) 40 mg capsule Take 40 mg by mouth once daily. Studies to Review: Tilt table 12/07/22 FINAL IMPRESSIONS * - The test was stopped early at 30 out of 45 minutes of 70 degree tilt. - Systolic blood pressures remained stable from 121 mmHg at start to 127 mmHg at end of tilt. - Diastolic blood pressures remained stable from 88 mmHg at start to 81 mmHg at end of tilt. - Blood pressure upon return to supine position was 129/82 mmHg. - Heart rates increased from 73 bpm at start to 110 bpm at end of tilt. - Heart rate upon return to supine position was 92 bpm. - ECGs showed: Sinus Rhythm and sinus tachycardia. NO asystole was seen. - Patient signs/symptoms included: DIZZINESS, FATIGUE, HEADACHE, HOT. - Syncope/impending syncope was NOT induced. - Overall: A postural increase in heart rate was seen that was borderline for accentuated postural tachycardia. New Health Issues: No New Social History: No New Family History: No REVIEW OF SYSTEMS: GENERAL:No weight loss, malaise or fevers. HEENT:no changes to hearing or vision NECK:negative for neck pain, swelling. RESPIRATORY: Negative for cough, wheezing or shortness of breath. CARDIOVASCULAR: Negative for chest pain, (more content not included)... [facility] 12-22-2022 Miscellaneous Notes Tilt table test showed that your blood pressure responding appropriately when upright, however, your heart rate increased significantly from 73 to 110 beats a minute. This is significant for POTS. Thank you for having this testing completed. TC to patient who verbalized understanding of providers message above. Patient to keep follow up on 01/09 with . Nothing further at this time. RACIEL Su Pt called in asking for tilt table test results. Please call Pt and advise. documented in this encounter [facility] 10-04-2022 Note HNO ID: [id number] Author: Hemalatha Anthony PA-C Service: ? Author Type: Physician Accountant Clerk Type: Progress Notes Filed: 10/04/2022 3:13 PM Note Text: Neurology Outpatient Clinic Date: October 04, 2022 Patient Name: Ana Paula Leonardo Referring physician: Bernadette Tirado [address] [facility] [address] [facility] [address] Consult requested for dizziness by Dr. Tirado. Recommendations will be communicated via shared medical record or US mail. Primary physician: none Reason for Evaluation: Dizziness Subjective HPI Ana Paula Leonardo is a 22 year old female with history of GERD who presents for evaluation of lightheadedness. Dr. Tirado is the referring physician. Chart Review: LH, has anxiety. Saw cardiology, ECHO normal and reported normal teLH worse with warm weather. Patient presents for evaluation of lightheadedness. Patient notes onset over a year ago, no eliciting event, trauma, medication change, diagnosed at that time. Notes that it is daily, progressively worsening since onset. Worse when position changing from sitting to standing. Denies any syncope, but does note that she became lightheaded, causing her to hit her head and then passed out secondary to this head injury. This head injury was in August 05 and recovered well from this. Notes that she had bent over while at work at [employer], and then quickly stood up causing her to be acutely lightheaded and hit her head, causing her to pass out. Has been with cardiology, has a normal echo, bubble study, Holter monitor and had a tilt table clinical. Also notes normal MRI of the brain with and without contrast. She notes that she was told to double test was normal, but does appear to have a significant drop in blood pressure from 124/80 to 96/46, possibly lower but these readings were not available. Additionally there is an increase in her heart rate from 88-153 during the study. No seizure-like activity, no incontinence, no tongue biting. Again, no full syncope with these episodes. Patient is about 3-5 of water a day, does not take in much salt. Does drink about 1-2 Powerade's a day as well. Did have 1 day where she wore compression socks, states that she was on for 1 day but had numbness tingling in her feet and did not wear them anymore. Denies any history of diabetes, no heavy alcohol use, no drug use, noted vitamin deficiencies or supplementations. No diet restrictions. Denies any constipation, diarrhea, dry mouth, dry eyes, chest pain, shortness of breath. Does note some mild headache after her dizziness/lightheadedness, depending on how severe this is. Can last anywhere from minutes to an hour. Does note some baseline sensitivity to light as well. Labs/Imaging MRI brain w/wo normal Medications: Current Outpatient Medications Medication Sig Dispense Refill FLUoxetine (PROZAC) 40 mg capsule Take 40 mg by mouth once daily. No current facility-administered medications for this visit. ROS ROS: Her ROS was positive for that mentioned in the HPI. Otherwise a 10-point ROS was completed and was negative. ALLERGIES No Known Allergies Past Medical History: History reviewed. No pertinent past medical history. Family History: FAMILY HISTORY Problem Relation Age of Onset Seizures Maternal Grandmother Heart Unknown maternal and paternal side Hypertension Unknown maternal great mother Cancer Unknown brain cancer- maternal great aunt other (hearing problems [Other]) Unknown maternal grandmother Also includes: . Social History: Social History Tobacco Use Smoking status: Former Types: Cigarettes Smokeless tobacco: Never [place] Objective 10/04/22 1325 10/04/22 1328 10/04/22 1331 Orthostatic BP: 122/92 118/88 Orthostatic Pulse: 100 Resp: 18 SpO2: 99% Weight: 77.9 kg (171 lb 12.8 oz) Physical Examination General Appearance: Well appearing, alert, in no acute distress, well-hydrated, well nourished. Head: Normocephalic Pulm: Breathing comfortably Neck: Supple Psych: Cooperative, appropriate affect Neurological Examination: Mental Status: Alert and Oriented to Place, Person, Time and Situation and Patient follows commands.. Language: Is intact to Comprehension, Fluency and Repetition Cranial Nerves: CNII: Visual acuity normal, visual gamboa full to confrontation CNIII, IV, : Pupils equal, round and reactive to light, full extraoccular movements, without nystagmus CN V: Facial sensation intact bilaterally to fine touch CN VII: Facial muscles symmetric and strong CN VIII: Hears finger rub well bilaterally CN IX: Gag Reflex not examined CN X: Palate elevates symmetrically CN XI: Full strength shoulder shrug bilaterally CN XII: Tongue protrusion full and midline Motor Exam: Tone - Normal Tone noted in all extremities Bulk - Normal bulk noted in all muscles tested. Inspection - Normal, no fasciculations or tremors noted. Power: MUSCLES (more content not included)... [facility] 10-04-2022 Instructions Hemalatha Anthony PA-C - 10/04/2022 2:06 PM EDT POTS Conservative Measures Increased water intake (2-2.5 liters of water daily) Increased salt intake (3-5 grams daily) LMNT- low sugar electrolyte supplements Compression stockings Cardiac Rehab/ increased Exercise 5. Tilt table test POTS Manual: Read the POTS manual online. This will help you understand your POTS diagnosis, work with your medical team, and includes detailed instructions and tips for improved daily living with POTS. [email or web address] pots Orthostatic Workout There are videos /playlist/podcast to viewed and helped for exercises and wellness for POTS and Orthostatics Instructions:[email or web address] In your search bar in the internet go type YOU TUBE 2. Search in the YOU TUBE search bar Trev Orthostatic Exercises 3. Select Beginner Introduction Beginner Orthostatic Workout . This is for starting out . 4. As you advance the Beginner Orthostatic Workout may be next step or integrated into the Beginner work out 5. There is a video for breathing exercise to calm the adrenaline and heart rate that you can do independent and often Tips you can watch the video as often you want Subscribe to the video channel for updates Can integrate into the videos into your other fitness regimen May share along this YOU TUBE channel to other POTS patients, family and support people Also follow us along on [employer] account ISAURA Also besides the exercise are some morales mediation videos . Click and watch. Utilize when your adrenaline is active. May even play music to go along. Play the video as often you want to help as an additional tool to reset the adrenaline https://www.eTax Credit Exchangeube.com/watch?v =aMVv2hSlQZ7 https://www.eTax Credit Exchangeube.com/watch?v =r0aHwoZ-8lJ&feature=youtu.be https://www.eTax Credit Exchangeube.com/watch?v =B7dV0fQcL94 Shared Medical Appointments To schedule the ZOOM POTS SMA please call during Sunday-Sunday 9 am - 4 pm , THE CALL CENTER # [phone] The CALL CENTER IS OPEN 24 hours/ 7 DAYS PER WEEK Please be patient with the phone line. We are honored and glad to have you part of the SMA for POTS Welcome to ZOOM POTS SMA (SHARED MEDICAL APPOINTMENTS) We have learned at the [facility] and especially in my work and our department that POTS that there is so much to learn to live well with this condition. So much of the emphasis needs to be on life tips of education, body awareness, community, exercise , daily life tips, and the psychology of living well with POTS. The SMA is done by Jessica Bond our POTS Experience Officer Who has POTS also and I. I have been doing SMA for 6 years for POTS. We have even published the benefit of the SMA for POTS. We used to do the SMA in person, but during the pandemic we are starting to do them via ZOOM. For years I have been wanting to do the SMA as a virtual format like ZOOM. About 10 patients can attends and can invite someone. The ZOOM SMA is a safe space to be supported. We do request to allow your face to be seen and courtesy language. The session is about 90 minutes long. We will have a topic, questions, and answers. The sessions are not recorded. We encourage about 3 ZOOM SMA in a year. I hope you can attend. This should greatly help you for wellness and better heal Best, Dr. Karimi and the Autonomic Team Scheduling Phone numbers [facility] Central Scheduling [phone] Neurological [place] Scheduling [phone] Cardiology - General [phone] Endocrinology [phone] Ophthalmology [phone] Physical Therapy/ Occupational Therapy [phone] Cardiology General [phone] Holter walk in [phone] walk in J-2-2 EKG walk in [phone] walk in J-1-4 Echo same day [phone] Cardiac tilt [phone] The nursing staff and medical assistants are a major part of YOUR TREATMENT TEAM and will be handling your phone calls, Conjuncthart messages and inquiries, if any. Unless explicitly told otherwise at the time of your office visit, your study results and ensuing treatment plans will be discussed during your follow-up appointment. If you do not have a follow-up appointment and wish to discuss any issues directly with me, please feel free to obtain one. In regards to blood work, testing, and radiology reports these are released automatically to the patients. We do not comment on most testing on [employer] Technologies[employer] in a message or commentary unless there is a concern. You will not receive a message from me of the result unless there is a specific concern of the result I need you to address further in care with us or your primary medical team. Make sure to check your my chart email or brianna. As an international referral center for syncope, autonomic dysfunction, general neurology, headache care, neuromuscular disease, and other related conditions, seeing patients from across the world, we do not have the resource of time or staffing to address inquiries for accommodations. As such, we do not provide or complete requests for work accommodations, FMLA, disability, or other such forms. We recommend seeking guidance through your primary care provider for these requests. We are happy to provide our office notes from your visits and other tests or evaluations performed through our clinic, which can be made available upon request to assist you with this process. documented in this encounter [facility] 10-04-2022 History of Presen t illness Narrative Images from the original note were not included. Neurology Outpatient Clinic Date: October 04, 2022 Patient Name: Ana Paula Leonardo Referring physician: Bernadette Tirado [address] [facility] [address] [facility] [address] Consult requested for dizziness by Dr. Tirado. Recommendations will be communicated via shared medical record or US mail. Primary physician: none Reason for Evaluation: Dizziness Subjective HPI Ana Paula Leonardo is a 22 year old female with history of GERD who presents for evaluation of lightheadedness. Dr. Tirado is the referring physician. Chart Review: LH, has anxiety. Saw cardiology, ECHO normal and reported normal teLH worse with warm weather. Patient presents for evaluation of lightheadedness. Patient notes onset over a year ago, no eliciting event, trauma, medication change, diagnosed at that time. Notes that it is daily, progressively worsening since onset. Worse when position changing from sitting to standing. Denies any syncope, but does note that she became lightheaded, causing her to hit her head and then passed out secondary to this head injury. This head injury was in August 05 and recovered well from this. Notes that she had bent over while at work at [employer], and then quickly stood up causing her to be acutely lightheaded and hit her head, causing her to pass out. Has been with cardiology, has a normal echo, bubble study, Holter monitor and had a tilt table clinical. Also notes normal MRI of the brain with and without contrast. She notes that she was told to double test was normal, but does appear to have a significant drop in blood pressure from 124/80 to 96/46, possibly lower but these readings were not available. Additionally there is an increase in her heart rate from 88-153 during the study. No seizure-like activity, no incontinence, no tongue biting. Again, no full syncope with these episodes. Patient is about 3-5 of water a day, does not take in much salt. Does drink about 1-2 Powerade's a day as well. Did have 1 day where she wore compression socks, states that she was on for 1 day but had numbness tingling in her feet and did not wear them anymore. Denies any history of diabetes, no heavy alcohol use, no drug use, noted vitamin deficiencies or supplementations. No diet restrictions. Denies any constipation, diarrhea, dry mouth, dry eyes, chest pain, shortness of breath. Does note some mild headache after her dizziness/lightheadedness, depending on how severe this is. Can last anywhere from minutes to an hour. Does note some baseline sensitivity to light as well. Labs/Imaging MRI brain w/wo normal Medications: Current Outpatient Medications Medication Sig Dispense Refill FLUoxetine (PROZAC) 40 mg capsule Take 40 mg by mouth once daily. No current facility-administered medications for this visit. ROS ROS: Her ROS was positive for that mentioned in the HPI. Otherwise a 10-point ROS was completed and was negative. ALLERGIES No Known Allergies Past Medical History: History reviewed. No pertinent past medical history. Family History: FAMILY HISTORY Problem Relation Age of Onset Seizures Maternal Grandmother Heart Unknown maternal and paternal side Hypertension Unknown maternal great mother Cancer Unknown brain cancer- maternal great aunt other (hearing problems [Other]) Unknown maternal grandmother Also includes: . Social History: Social History Tobacco Use Smoking status: Former Types: Cigarettes Smokeless tobacco: Never [employer] Objective 10/04/22 1325 10/04/22 1328 10/04/22 1331 Orthostatic BP: 122/92 118/88 Orthostatic Pulse: 100 Resp: 18 SpO2: 99% Weight: 77.9 kg (171 lb 12.8 oz) Physical Examination General Appearance: Well appearing, alert, in no acute distress, well-hydrated, well nourished. Head: Normocephalic Pulm: Breathing comfortably Neck: Supple Psych: Cooperative, appropriate affect Neurological Examination: Mental Status: Alert and Oriented to Place, Person, Time and Situation and Patient follows commands.. Language: Is intact to Comprehension, Fluency and Repetition Cranial Nerves: CNII: Visual acuity normal, visual gamboa full to confrontation CNIII, IV, : Pupils equal, round and reactive to light, full extraoccular movements, without nystagmus CN V: Facial sensation intact bilaterally to fine touch CN VII: Facial muscles symmetric and strong CN VIII: Hears finger rub well bilaterally CN IX: Gag Reflex not examined CN X: Palate elevates symmetrically CN XI: Full strength shoulder shrug bilaterally CN XII: Tongue protrusion full and midline Motor Exam: Tone - Normal Tone noted in all extremities Bulk - Normal bulk noted in all muscles tested. Inspection - Normal, no fasciculations or tremors noted. Power: MUSCLES Upper Extremity RIGHT LEFT Deltoid / 5/ Biceps / 5 Triceps / 5/ Wrist Extension 08/18 5/ Wrist Flexion 08/18/ Finger Flexion 08/18/ Finger Extension 08/18/ Finger Abd 08/18/ Finger Add 08/18 08/18 MUSCLES Lower Extremity RIGHT LEFT Hip Flexion 08/18/ Hip Extension 08/18 08/18 BiFem (Knee Flex) 08/18 08/18 Quads (Knee Ext) 08/18 08/18 Gastroc (Plantflx) 08/18 08/18 TibAnt (Dorsiflx) 08/18 08/18 FlxHLong (Toe Flex) 08/18 08/18 ExtHLong (Toe Ext) 08/18 08/18 Sensory Examination Intact to vibration throughout, intact proprioception. Minimally decreased sensation to temperature in both the hands and feet equally and bilaterally, minimally decreased to sharp in the feet bilaterally. Reflexes Right Left Bicep 2/4 2/4 Tricep 2/4 2/4 BrRad 2/4 2/4 Knee 2/4 2/4 Ankle 2/4 2/4 Glaser Response Negative Negative Coordination: finger-to- nose-finger intact bilaterally and pmbw-oc-axte intact bilaterally. Gait: Patient's gait is normal, can heel and toe walk and can tandem walk Romberg: Negative DATA REVIEWED Actual films/image/tracing reviewed and summarized as follows: ECHO, mri brain, tilt table Old records reviewed and summarized as follows: limited- [facility] (cardio and pcp) Assessment/Plan Assessment & Plan: Ana Paula Leonardo is a 22 year old female with a history of GERD. Her examination demonstrates mild small fiber abnormalities to the hands and feet as noted above. Negative orthostats today (noted difficulty with reading on machine, needed manual). Patient with lightheadedness and presyncope onset a few months ago. Onset with sitting to standing, exercise. Has been evaluated by cardiology at [facility] with normal ECHO, normal holter, and normal MRI brain. Did obtain tilt table test that was read as normal, however, does appear to have a significant drop in blood pressure and significant raise in heart rate (88-153) when upright. This is concerning for dysautonomia. Discussed repeating the test in our system and patient would like to repeat this. Will order repeat tilt table test. Additionally, minimal small fiber abnormalities were found on sensory exam as noted above concerning for possible small fiber neuropathy. Discussed skin biopsy for small fiber nerves and patient elected to have tilt table done first and then obtain biopsy and further autonomic testing. Discussed conservative management for dysautonomia including increasing water intake, increasing salt intake, compression, and exercise. Gave patient further instructions in her after visit summary. Patient voiced understanding to these instructions. Patient agreeable treatment plan of care at this time, questions were answered. Patient to follow-up in 2 to 3 months following the completion of her tilt able test. Ana Paula was seen today for new patient. Diagnoses and all orders for this visit: Orthostatic hypotension - TILT TABLE EVALUATION She should return to see me in 2-3 months. I spent a total of 50 minutes on the date of the service which included preparing to see the patient, [id number] patient care, completing clinical documentation, obtaining and/or reviewing separately obtained history, performing a medically appropriate examination, counseling and educating the patient/family/caregiver, and ordering medications, tests, or procedures. Hemalatha Anthony PA-C [facility] Neurology This document has been created with the use of voice recognition technology. It may contain inaccuracies: (e.g. misspellings, inaccurate syntax or word sense) that have escaped review. documented in this encounter [facility] 09-14-2022 Miscellaneous Notes Received referral request from [facility] for this patient to be seen for lightheadedness. Referral printed off and given to Stephanie Joyce. Deana Gastelum LPN documented in this encounter [facility] 08-03-2021 History of Presen t illness Narrative Patient came in with complaints of headache. She said she hit her head on something at work and has been experiencing a headache and dizziness ever since. patient said she was having light sensitivity as well but currently not experiencing that symptoms. At this time patient is being referred to the ER for evaluation. documented in this encounter [facility] Diagnosis Orthostatic hypotension- Primary Dizziness Dizziness and giddiness [facility] Diagnosis Nausea Nausea alone Dyspepsia Dyspepsia and other specified disorders of function of stomach [facility] Diagnostic Procedure Only (Routine) - Closed Specialty Diagnoses / Procedures Referred By Contac t Referred To Contact MOLECULAR & FUNCTIONAL IMAGING Diagnoses Nausea Dyspepsia Procedures NM GASTRIC EMPTYING SOLID GASTRIC EMPTYING STUDY Hemalatha Anthony PA-C [address] [place] [address] Molecular & Functional Imaging [address] [place] [id number] Referral ID Status Reason Start Date Expiration Date V isits Requested Visits Authorized [id number] Closed Auto-Generate d Referral 01/09/2023 02/08/2024 1 1 [facility] Summary Purpose Family History No Family History Records FoundNo Family History Records Found Advance Directives No Advanced Directives Records FoundNo Advanced Directives Records Found Additional Source Comments Source Comments (unrecognize d section and content) In the event this informatio n is protected by the Federal Confidentiality of Alcohol and Drug Abuse Patient Records regulations: The Federal rules restrict any use of the information to criminally investigate or prosecute any alcohol or drug abuse patient.[facility] the event this information is protected by the Federal Confidentiality of Alcohol and Drug Abuse Patient Records regulations: The Federal rules restrict any use of the information to criminally investigate or prosecute any alcohol or drug abuse patient.[facility] Hospital[facility] the event this information is protected by the Federal Confidentiality of Alcohol and Drug Abuse Patient Records regulations: The Federal rules restrict any use of the information to criminally investigate or prosecute any alcohol or drug abuse patient.[facility] Hospital[facility] the event this information is protected by the Federal Confidentiality of Alcohol and Drug Abuse Patient Records regulations: The Federal rules restrict any use of the information to criminally investigate or prosecute any alcohol or drug abuse patient.[facility] Hospital[facility] the event this information is protected by the Federal Confidentiality of Alcohol and Drug Abuse Patient Records regulations: The Federal rules restrict any use of the information to criminally investigate or prosecute any alcohol or drug abuse patient.[facility] HospitalIn the event this information is protected by the Federal Confidentiality of Alcohol and Drug Abuse Patient Records regulations: The Federal rules restrict any use of the information to criminally investigate or prosecute any alcohol or drug abuse patient.[facility] HospitalIn the event this information is protected by the Federal Confidentiality of Alcohol and Drug Abuse Patient Records regulations: The Federal rules restrict any use of the information to criminally investigate or prosecute any alcohol or drug abuse patient.[facility] Reason for Visit (unrecogniz ed section and content) Reason Comments New Patient Reason Comments Results Reason Comments metoprolol PA Reason Comments Radiology NM Specialty Diagnoses / Procedures Referred By Controdolfo t Referred To Contact MOLECULAR & FUNCTIONAL IMAGING Diagnoses Nausea Dyspepsia Procedures NM GASTRIC EMPTYING SOLID GASTRIC EMPTYING STUDY Hemalatha Anthony PA-C [address] [place] [address] Molecular & Functional Imaging [address] [place] [address] Referral ID Status Reason Start Date Expiration Date V isits Requested Visits Authorized [id number] Closed Auto-Generate d Referral 01/09/2023 02/08/2024 1 1 INFORMATION SOURCE (unrecogn ized section and content) DATE CREATED AUTHOR AUTHOR'S ORGANIZ ATION 05/19/2023 [facility] Care Teams (unrecognized sec tion and content) [employer] Officer Relationship Specialty Start Date End Date Bernadette Tirado DO [address] [facility] [address] [place] [address] PCP - General Family Medicine 12/07/22 [employer] Police Officer Relationship Specialty Start Date End Date Bernadette Tirado DO [address] [facility] [address] [place] [address] PCP - General Family Medicine 12/07/22 Military Police Officer Relationship Specialty Start Date End Date Bernadette Tirado DO [address] [facility] [address] [place], [place] [id number] PCP - General Family Medicine 12/07/22 FOR RECORDS PERTAINING TO PATIENTS WHO ARE OR HAVE BEEN ENROLLED IN A CHEMICAL DEPENDENCY/SUBSTANCEABUSE PROGRAM, SOME INFORMATION MAY BE OMITTED. This clinical summary was aggregated from multiple sources. Caution should be exercised in using it in the provision of clinical care. This summary normalizes information from multiple sources, and as a consequence, information in this document may materially change the coding, format and clinical context of patient data. In addition, data may be omitted in some cases. CLINICAL DECISIONS SHOULD BE BASED ON THE PRIMARY CLINICAL RECORDS. [facility] [employer] [facility]. provides no warranty or guarantee of the accuracy or completeness of information in this document.
[2023-05-28 15:08] LABS: Deamidated Gliadin IgA 6 units (0-19); Deamidated Gliadin IgG 4 units (0-19); Endomysial Antibody IgA Negative (Negative); Immunoglobulin A 191 mg/dL (87-352); t-Transglutaminase IgA <2 U/mL (0-3)
[2023-05-30 09:08] LABS: Alternaria alternata <0.10 kU/L (Class 0); Aspergillus fumigatus <0.10 kU/L (Class 0); Bahia Grass <0.10 kU/L (Class 0); Bermuda Grass <0.10 kU/L (Class 0); Bluegrass, Kentucky <0.10 kU/L (Class 0); Cat Hair/Dander, Standard <0.10 kU/L (Class 0); Cedar, Mountain <0.10 kU/L (Class 0); Cladosporium herbarum <0.10 kU/L (Class 0); Cockroach, American <0.10 kU/L (Class 0); D farinae Mite <0.10 kU/L (Class 0); D pteronyssinus <0.10 kU/L (Class 0); Dog Epithelia <0.10 kU/L (Class 0); Elm, American White <0.10 kU/L (Class 0); Hazelnut Tree <0.10 kU/L (Class 0); Hickory, White <0.10 kU/L (Class 0); Johnson Grass <0.10 kU/L (Class 0); Maple/Box Elder <0.10 kU/L (Class 0); Mucor racemosus <0.10 kU/L (Class 0); Mugwort <0.10 kU/L (Class 0); Mulberry, White <0.10 kU/L (Class 0); Nettle <0.10 kU/L (Class 0); Oak, White <0.10 kU/L (Class 0); Penicillium chrysogen <0.10 kU/L (Class 0); Pigweed, Rough <0.10 kU/L (Class 0); Plantain, English <0.10 kU/L (Class 0); Ragweed, Short/Common <0.10 kU/L (Class 0); Sheep Sorrel(Dock) <0.10 kU/L (Class 0); Stemphylium herbarum <0.10 kU/L (Class 0); Sweet Gum <0.10 kU/L (Class 0); Sycamore, American <0.10 kU/L (Class 0)
== END | disposition home or self-care (01) ==
LOC: LAB 13:44
PROVIDERS: PCP Family Medicine; Visit Provider Nurse Practitioner Gerontology
DX: R19.4 Change in bowel habit (principal); E53.8 Deficiency of other specified B group vitamins; T78.40XA Allergy, unspecified, initial encounter; X58.XXXA Exposure to other specified factors, initial encounter; R63.5 Abnormal weight gain
CPT/HCPCS: 36415; 82607; 82784; 83516; 84439; 84443; 84481; 86003; 86255

== ENCOUNTER → 2023-08-21 | Outpatient (CLI) | payer MEDICAID, SELFPAY ==
[2023-08-21 12:41] LABS: Absolute Lymphocyte Count 1.74 X10^3/uL (0.83-4.51); Basophil# 0.04 X10^3/uL; Basophil% 0.6 % (0-1); Eosinophil# 0.07 X10^3/uL; Eosinophils% 1.1 % (0-5); Hematocrit 39.8 % (37-47); Hemoglobin 12.4 g/dL (12.0-15.0); Lymphocyte # 1.74 X10^3/ul (0.83-4.51); Lymphocyte % 27.7 % (19-41); Mean Corp Hgb Conc 31.2 g/dL (32-36); Mean Corpuscular Hgb 26.9 pg (27.0-32.0); Mean Corpuscular Volume 86.3 fL (81-99); Mean Platelet Vol. 10.3 fl (6.2-12.0); Monocyte% 6.4 % (0-10); NRBC Flagged by Analyzer 0 % (0-5); Neutrophil # 4.02 X10^3/uL (2.7-7.7); Neutrophil % 63.9 % (47-70); Platelet Count 379 K/mm3 (150-450); RBC Distribution Width CV 13.1 % (11.6-14.6); RBC Distribution Width SD 40.8 fl (35.1-43.9); Red Blood Count 4.61 M/mm3 (4.2-5.4); White Blood Count 6.3 K/mm3 (4.4-11.0)
[2023-08-21 13:03] LABS: Vitamin B12 567 pg/mL (211-911)
[2023-08-21 13:39] LABS: ALB/GLOB Ratio 0.8 RATIO (0.9-2.4); AST(SGOT) 19 U/L (15-37); Alanine Aminotransfer ALT/SGPT 20 U/L (13-56); Albumin, Serum 3.4 g/dL (3.2-5.0); Alkaline Phosphatase 92 U/L (45-117); Anion Gap 4 (5-15); BUN 8 mg/dL (7-18); BUN/Creat Ratio 9.3 RATIO (10-20); Chloride 105 mmol/L (98-107); Creatinine, Serum 0.86 mg/dL (0.55-1.02); EST Glomerular Filtration Rate 88 mL/min (>60); Est Glom Filt Rate - Afr Amer 106 mL/min (>60); Glucose 75 mg/dL (74-106); Potassium 3.7 mmol/L (3.5-5.1); Protein, Total 7.4 g/dL (6.4-8.2); Sodium Level 137 mmol/L (136-145); T4 Free Direct 0.98 ng/dL (0.76-1.46); Thyroid Stim Hormone (TSH) 1.54 uIU/mL (0.358-3.74)
[2023-08-24 08:13] LABS: Anti-Thyroglobulin AB < 1.0 IU/mL (0.0-0.9); Intrinsic Factor Ab 1.1 AU/mL (0.0-1.1); Thyroglobulin, Serum Qt. 15.1 ng/mL (1.5-38.5); Thyroid Peroxidase AB < 9 IU/mL (0-34); Thyroid Stim Immunoglob <0.10 IU/L (0.00-0.55)
== END | disposition home or self-care (01) ==
PROVIDERS: PCP Family Medicine; Referring Provider Family Medicine; Visit Provider Family Medicine
DX: E53.8 Deficiency of other specified B group vitamins (principal); E04.1 Nontoxic single thyroid nodule
CPT/HCPCS: 36415; 80053; 82607; 82746; 84432; 84439; 84443; 84445; 85025; 86340; 86376; 86800

== ENCOUNTER → 2023-08-23 | Outpatient (CLI) | payer MEDICAID, SELFPAY ==
--- NOTE | 2023-08-23 08:17 | RAD_ITS ---
STUDY: X-RAY - ESOPHAGUS (BARIUM SWALLOW) WITH FLUOROSCOPY REASON FOR EXAM: Female, 22 years old. Dysphagia, 12 mm tablet TECHNIQUE: 19 view(s) of the esophagus were obtained following swallowing of barium. FLUOROSCOPY TIME (if supplied): (28 seconds) minutes/seconds. 15.76 mGy. COMPARISON: None. FINDINGS: There is no demonstrated esophageal foreign body. There is no demonstrated stricture or mucosal abnormality. Normal gastroesophageal junction, without a demonstrated hiatal hernia. The patient ingested a 12 mm tablet of barium without any difficulty. Normal visualized aortic arch and descending thoracic aorta. Normal visualized pulmonary parenchyma. Normal visualized osseous structures of the thorax. RAD/Esophagus Dual Contrast IMPRESSION: Normal plain film x-ray examination (barium swallow) of the esophagus. Electronically Signed: Finn Rizvi MD at 12:10 EDT ,
== END | disposition home or self-care (01) ==
PROVIDERS: PCP Family Medicine; Referring Provider Family Medicine; Visit Provider Family Medicine
DX: R13.10 Dysphagia, unspecified (principal)
CPT/HCPCS: 74221

== ENCOUNTER → 2023-08-28 | Outpatient (CLI) | payer MEDICAID, SELFPAY ==
--- NOTE | 2023-08-28 12:18 | US_ITS ---
STUDY: THYROID ULTRASOUND REASON FOR EXAM: Female, 22 years old. Thyroid nodule. TECHNIQUE: Ultrasound evaluation of the thyroid was performed with real-time and static de la torre-scale imaging. COMPARISON: None. FINDINGS: RIGHT LOBE: The right lobe of the thyroid gland measures 4.5 cm x 1.7 cm x 1.7 cm. There is a homogeneous echotexture. There is a 6 mm x 5 mm x 4 mm solid and cystic nodule in the lower pole of the right lobe. LEFT LOBE: The left lobe of the thyroid gland measures 4.1 cm x 1.4 cm x 1.5 cm. There is a homogeneous echotexture. There are no demonstrated solid, cystic or complex lesions. ISTHMUS: The isthmus measures 2 mm. The regional lymph nodes are normal. US/Thyroid IMPRESSION: 6 mm x 5 mm x 4 mm solid and cystic nodule in the lower pole of the right lobe. Electronically Signed: Finn Rizvi MD at 15:42 EDT ,
== END | disposition home or self-care (01) ==
PROVIDERS: PCP Family Medicine; Referring Provider Family Medicine; Visit Provider Family Medicine
DX: E04.1 Nontoxic single thyroid nodule (principal)
CPT/HCPCS: 76536

== ENCOUNTER → 2023-08-30 | Outpatient (CLI) | payer MEDICAID, SELFPAY ==
--- NOTE | 2023-08-30 09:06 | RAD_ITS ---
STUDY: X-RAY - LUMBAR SPINE REASON FOR EXAM: Female, 22 years old. SACROILIAC PAIN TECHNIQUE: 3 view(s) of the lumbar spine were obtained. COMPARISON: None FINDINGS: There is straightening of the normal lumbar lordosis. There is no substantial scoliosis. There is a normal alignment of the vertebrae. Normal vertebral bodies and endplates. Normal disc space heights. Large amount of fecal material is seen in the colon. RAD/Lumbar Spine 2 or 3 Views IMPRESSION: Exaggerated lordosis. Electronically Signed: Finn Rizvi MD at 13:09 EDT ,
== END | disposition home or self-care (01) ==
LOC: MTRAD 09:05
PROVIDERS: PCP Family Medicine; Referring Provider Family Medicine; Visit Provider Family Medicine
DX: M53.3 Sacrococcygeal disorders, not elsewhere classified (principal)
CPT/HCPCS: 72100

== ENCOUNTER 2023-09-28 09:26 | Outpatient (RCR) | payer OTHER, SELFPAY ==
--- NOTE | 2023-09-28 11:01 | HP.PTEVAL_ITS ---
Patient's Visit Information Visit Information Visit Information: ACE ROSAS is a 22 year old F referred to Physical Therapy by Dr. Karthik Lino MD with a diagnosis of LOW BACK PAIN. Date of Evaluation: 09/28/23 Physical Therapist: Enzo De La Torre, PT, Cert MDT, OCS Visit Plan Frequency: 2x /Week Duration: 4 Weeks Plan: PT INTERVENTIONS CARMELO EX'S ,DLS ,POSTURAL EX'S ,POSTURE/BODY MECH ANICS TRAINING AND MODALTIES Subjective Subjective: This 22 y/o female presents to physical therapy with low back pain. Patient has had lumbar pain for 2 years. Patient symptoms worse with job demands. Seen DR davalos ,x-rays reduce lordosis.No medication. Patient located thoracic spine to hips . Described as ache occasionally sharp. Aggravating factors lifting,bending ,walking . Alleviating rest. Coughing/sneezing-. Bowel/bladder- . Denies paresthesia/tingling- Patient has difficulty sleeping wake up tired. Patient h/o trauma or accidents. Patient max lifting 100# at work. Patient back pain condition affects QOL and function. Patient goals to decrease pain. SOCIAL: single VOCATION: Speed Pain Bilateral Back: Pain Intensity (Out of 10): 6 Pain Intensity Range: 10 Comment: lifting Objective Objective: POSTURE: mild forward posture reduce lordosis GAIT: reciprocal pattern NEURO: denies paresthesia/tingling ,reflexes L3-4,L4-5,L5-S1 1/3 PALAPTION: SI/LS left > right LUMBAR ROM: flexion WNL ,extension WFL ,side glides WFL FLEXABILITY: hamstrings WFL MMT: quads/hams 4/5 ,hip flexion 4-/5 ,ankle 5/5 Special Tests L/S Slump test left side: Negative L/S Slump test right side: Negative L/S Left Straight Leg Raise: Negative L/S Right Straight Leg Raise: Negative Lumbar Standing: Flexion - Mechanical Response: No effect Lumbar Standing: Flexion - Symptoms During Testing: Increases Lumbar Standing: Flexion - Symptoms After Testing: No worse Lumbar Standing: Extension - Mechanical Response: No effect Lumbar Standing: Extension - Symptoms During Testing: Decreases Lumbar Standing: Extension - Symptoms After Testing: Better Lumbar Standing: Right Side Glides - Mechanical Response: No effect Lumbar Standing: Right Side [place] - Symptoms During Testing: No effect Lumbar Standing: Right Side [place] - Symptoms After Testing: No effect Lumbar Standing: Left Side [place] - Mechanical Response: No effect Lumbar Standing: Left Side [place] - Symptoms During Testing: No effect Lumbar Standing: Left Side [place] - Symptoms After Testing: No effect Lumbar Lying: Flexion - Mechanical Response: No effect Lumbar Lying: Flexion - Symptoms During Testing: No effect Lumbar Lying: Flexion - Symptoms After Testing: No effect Lumbar Lying: Extension - Mechanical Response: No effect Lumbar Lying: Extension - Symptoms During Testing: Decreases Lumbar Lying: Extension - Symptoms After Testing: Better Balance/Special Test Scores Oswestry Low Back Score: 16 Goals Goal 1:: I with HEP for back Goal Time Frame: 2-4 Weeks Goal 2:: Patient to demonstrate 50% improvement with less pain and improved function Goal Time Frame: 4-6 Weeks Goal 3:: Patient to improve lumbar ROM for function of recovery to lift correctly Goal Time Frame: 4-6 Weeks Goal 4:: Patient to improve back oswestry score by 5 points to improve QOL Goal Time Frame: 4-6 Weeks Rehabilitation Potential Physical Therapy Diagnosis: Patient possible derangement with symmetrical with pain with positioning and motioning testing worse with bending and lifting better with extension thus benefit from skilled PT Rehabilitation Potential: Good Anticipated Interventions Patient/Client Instruction: Educate patient on: Condition and Plan of Care For the Purpose of:: To decrease pain, To increase ROM, To increase tolerance to activity/condition/position, To improve ability of physical actions for home/community/work/leisure, To improve health of tissue, To decrease soft tissue restriction, To increase flexibility/ROM, To reduce risk of recurrence and To prevent re-injury Therapeutic Exercise to Include: Strength training, Postural training, Flexibilty training, Dynamic Lumbar Stabilization and Carmelo Exercises For the Purpose of:: To decrease pain, To increase ROM, To improve muscle performance and motor function, To improve ability to perform ADL's, To increase tolerance to activity/condition/position, To improve ability of physical actions for home/community/work/leisure, To improve health of tissue, To decrease soft tissue restriction, To increase flexibility/ROM and To assume or resume ADL's Text: Thank you for the opportunity to evaluate your patient. For Medicare and Medicare HMO plans, please review the plan of care and approve it. It will need to be FAXED BACK to us at [phone] for Medicare purposes. For Medicare only, by signing this I certify the plan of care. Please let me know if there are questions or concerns regarding this plan of care. Physician Si gnature: Date:
--- NOTE | 2023-11-16 14:43 | HP.PT.NRP ---
Patient Information Patient Information: ACE ROSAS was seen in my office for initial evaluation on 09/28/23. The following Plan of Care was established for this patient: POC Established Initial Frequency: 2x /Week Initial Duration: 4 Weeks Anticipated Interventions Patient/Client Instruction: Educate patient on: Condition and Plan of Care For the Purpose of:: To decrease pain, To increase ROM, To increase tolerance to activity/condition/position, To improve ability of physical actions for home/community/work/leisure, To improve health of tissue, To decrease soft tissue restriction, To increase flexibility/ROM, To reduce risk of recurrence and To prevent re-injury Therapeutic Exercise to Include: Strength training, Postural training, Flexibilty training, Dynamic Lumbar Stabilization and Ashly Exercises For the Purpose of:: To decrease pain, To increase ROM, To improve muscle performance and motor function, To improve ability to perform ADL's, To increase tolerance to activity/condition/position, To improve ability of physical actions for home/community/work/leisure, To improve health of tissue, To decrease soft tissue restriction, To increase flexibility/ROM and To assume or resume ADL's Last Seen Last Seen: This patient was last seen in our office . Pertinent comments regarding their Physical therapy will appear below: Patient seen for PT evaluation for HEP thus d/c At this point I will be discontinuing this patient from physical therapy. I would be happy to see this patient again in the future if found appropriate by the physician. Thank you! Enzo De La Torre, PT, Cert MDT, OCS Balance/Gait/Functional tests Balance/Special Test Scores Oswestry Low Back Score: 16
== END 2023-09-28 19:00 | disposition home or self-care (01) ==
LOC: PT 09:26
PROVIDERS: PCP Family Medicine; Referring Provider Family Medicine; Visit Provider Family Medicine
DX: M54.50 Low back pain, unspecified (principal)
CPT/HCPCS: 97110; 97162

== ENCOUNTER 2023-11-18 10:23 | Emergency (ER) | payer OTHER, SELFPAY ==
[2023-11-18 10:24] VITALS: BP 144/90; PULSE 95; RESP 18; TEMP 36.3; O2SAT 96; BMI 40.0
--- NOTE | 2023-11-18 10:40 | EDS_ITS ---
HPI History of Present Illness Chief Complaint: Abd Pain [facility] Medical History (System 08/29/23 @ 15:08 by Karly Donovan) Postural orthostatic tachycardia syndrome [POTS] Anxiety Home Medications ?Medication ?Instructions ?Recorded ?Last Taken ?Type L norgest/E estradiol-E estrad 1 tab PO DAILY 05/10/22 10/20/22 History 0.15 mg-30 mcg (84)/10 mcg(7) tabs,3mos (Seasonique) fluoxetine 40 mg capsule (Prozac) 40 mg PO DAILY 05/10/22 10/20/22 History mecobalamin (vitamin B12) 1,000 2,000 mcg PO DAILY 05/24/23 Unknown History mcg chewable tablet metoprolol tartrate 25 mg tablet 25 mg PO BID 05/24/23 Unknown History Allergy/AdvReac Type Severity Reaction Status Date / Time No Known Allergies Allergy Verified 11/18/23 10:27 Social History (System 08/29/23 @ 15:08 by Karly Donovan) Smoking Status: Never smoker alcohol intake: never substance use type: does not use caffeine: Yes (x2 week) EXAM Physical Exam Const Vital Signs: 11/18/23 10:24 11/18/23 12:24 Temperature 97.3 F L Temperature Source Temporal Pulse Rate 95 70 Respiratory Rate 18 16 Blood Pressure 144/90 H 130/81 H Blood Pressure Mean 108 97 Pulse Ox 96 99 Oxygen Delivery Method Room Air Room Air MDM MDM MDM Narrative Medical decision making narrative: HISTORY OF PRESENT ILLNESS: 23-year-old female presents with chest pain abdominal pain after eating endoscopy 2 days ago. Notes pain is progressive getting worse. Denies shortness of breath. Denies hematemesis. Denies melena hematochezia. No history abdominal surgeries. Last period was several months ago. States he is on control. Denies vaginal bleeding or discharge. Denies urinary symptoms such as frequency urgency or dysuria. Denies fever. The patient de nies immobilization in the last 3 days, denies previous diagnosis of DVT or PE, hemoptysis, unilateral leg swelling or malignancy with treatment the last 6 months or palliative. No estrogen use noted. Patient denies sudden onset of pain, no tearing sensation, no migratory symptoms, no new numbness, weakness or loss of sensation. Patient denies family history or personal history of Connective tissue disorders (Marfan's Syndrome, Vahid Danlos etc) REVIEW OF SYSTEMS: Pertinent positives: Chest pain, abdominal pain Pertinent negatives: Shortness of breath, hematemesis, melena or hematochezia PHYSICAL EXAM: Nursing triage notes reviewed, Vital signs reviewed Constitutional: please see mdm HENT: MMM Eyes: Pupils equal round and reactive to light, Extraocular muscles intact Neck: No stridor, no JVD, full neck ROM Lungs: Clear to auscultation, No wheezing or rales. No increased work of breathing, no conversational dyspnea, no accessory muscle use, no nasal flaring. No respiratory distress noted. No crepitus to the chest Heart: Regular rate and rhythm, No murmurs, No rubs and No gallops, 2+ distal pulses (radial, femoral, posterior tibial) in all extremities Abdomen: Soft, there is no tenderness, rigidity, rebound or guarding, no obvious peritoneal signs, no palpable pulsatile abdominal masses, no auscultated abdominal bruit : No CVAT Extremities: No edema Neuro: No focal neurological deficits, cranial nerves II through XII intact, 5/5 strength in all extremities. Intact sensation to light touch in all extremities, 2+ reflexes bilateral patella tendons. Normal gait. No ataxia. Skin: No rash or lesions noted MEDICAL DECISION MAKING: Chief Complaint: Abdominal pain, chest pain External records reviewed: [facility] reviewed: No gastroenterology notes noted Factors affecting care: none Social determinants of health: none History obtained from others: none Consults: none [facility] Narrative: Patient was hemodynamically stable, afebrile, nontoxic-appearing. Exam was benign I considered the following differential diagnosis: Esophageal perforation, rupture, gastric rupture, GERD, gastric inflammation, gastritis, esophagitis, pancreatitis, pedal biliary obstruction, I also considered pulmonary embolism as a potential cause of the patient's chest pain however patient had a low risk Wells score was not hypoxic and had no signs of right heart strain on initial EKG. These findings make PE less likely and as such there is no indication for advanced imaging such as CT of the chest. I also considered aortic dissection given report of chest pain and abdominal pain. Patient had no history of connective tissue disorders, no pulse deficits, no focal neurologic deficits or significant vital sign abnormalities (hypo or hypertension) to suggest aortic dissection. I considered obtaining a CT of the chest abdomen pelvis. I obtained a broad lab and imaging workup to further elucidate etiology of the patient's complaints I treat the patient with IV fluids, Zofran and Pepcid for symptomatic relief. ALL IMAGES (IF OBTAINED) HAVE BEEN PERSONALLY REVIEWED AND INTERPRETED BY MYSELF. CBC without leukocytosis, severe anemia, no thrombocytopenia. Urine protein test is negative EKG with normal sinus rhythm, normal axis, normal intervals, no STEMI, similar morphology compared to EKG from November 2022 High-sensitivity troponin is negative, no evidence of myocardial ischemia Lipase is wnl indicating no pancreatic inflammation. BMP without evidence of significant electrolyte abnormalities, no anion gap, no acute kidney injury. Lipase is wnl indicating no pancreatic inflammation. Urinalysis shows no evidence of urinary inflammation suggestive of UTI Urine test is negative I have personally reviewed the patient's chest x-ray. Chest x-ray is unremarkable for pulmonary edema, pneumothorax, pneumonia or focal cardiopulmonary abnormality. CT scan abdomen pelvis shows no acute life-limiting etiology POCUS ultrasound showed no evidence of obvious pericardial effusion The synthesis of the patient's history, physical exam, labs images suggest likely irritation from recent EGD. No sign of esophageal or abdominal perfo ration. Patient is appropriate for discharge home with close GI and PCP follow- up. Strict return precautions were discussed. The patient and/or family, caregivers express understanding. The patient and/or family, caregivers agrees with the plan. Shared decision making: I will have a discussion with the patient and or visitors regarding risk/benefits of further testing or admission. They will be made aware of of the risk/benefits inherent in this decision they will be given the opportunity to voice understanding. Total critical care time today provided was at least 0 minutes. This excludes separately billable procedures. Critical care time (if documented) is secondary to the patient having high probability of clinically significant/life threatening deterioration in the patient's condition which required my urgent intervention. Impression: 1. Abdominal pain 2. Chest pain 3. Postop pain Dispo: Discharge home This note was generated with [employer] dictation software. It may contain incorrect words, spelling, and punctuation that were not noted in review of the chart prior to signing. Lab Data Labs: Laboratory Results - last 24 hr 11/18/23 11/18/23 11:10 11:25 WBC 5.5 RBC 4.83 Hgb 12.8 Hct 41.3 MCV 85.5 MCH 26.5 L MCHC 31.0 L RDW Std Deviation 41.3 RDW Coeff of Floridalma 13.2 Plt Count 353 MPV 10.3 Immature Gran % (Auto) 0.200 Neut % (Auto) 66.2 Lymph % (Auto) 25.1 [place] % (Auto) 7.1 Eos % (Auto) 0.7 Baso % (Auto) 0.7 Absolute Neuts (auto) 3.6 Absolute Lymphs (auto) 1.38 Nucleated RBC % 0 Sodium 138 Potassium 3.7 Chloride 106 Carbon Dioxide 25.0 Anion Gap 7 BUN 7 Creatinine 0.80 Estim Creat Clear Calc 121.54 Est GFR (MDRD) Af Amer 116 Est GFR (MDRD) Non-Af 96 BUN/Creatinine Ratio 8.8 L Glucose 89 Calcium 8.9 Troponin I High Sens < 3 L Lipase 15 Urine Color Yellow Urine Clarity Clear Urine pH 8.0 Ur Specific [place] 1.015 Urine Protein Negative Urine Glucose (UA) Normal Urine Ketones Negative Urine Occult Blood Negative Urine Nitrite Negative Urine Bilirubin Negative Urine Urobilinogen Normal Ur Leukocyte Esterase 25 H Urine Test Negative Radiography Diagnostic Testing: Clinical Impression(s) from Imaging Studies Abdomen/Pelvis CT 11/18/23 10:55 IMPRESSION: 1. Mild urinary bladder distention is likely transient/physiologic. Correlate clinically. No bladder wall thickening to suggest cystitis. 2. No evidence of perforation. Electronically Signed: Chang Hayes DO at 12:21 EDT , Chest X-Ray 11/18/23 12:36 IMPRESSION: Mild cardiomegaly and/or pericardial effusion. This may be exaggerated secondary to technique and positioning. Electronically Signed: Chang Hayes DO at 13:09 EDT , Discharge Plan Triage Chief Complaint: Abd Pain ED Provider: Xavier Maloney Dx/Rx/DC Orders Instructions: Upper GI Endoscopy with Biopsy Prescriptions: No Action metoprolol tartrate 25 mg tablet 25 mg PO BID mecobalamin (vitamin B12) 1,000 mcg tablet,chewable 2,000 mcg PO DAILY L norgest/e.estradiol-e.estrad [Seasonique] 0.15 mg-30 mcg (84)/10 mcg (7) tablets,dose pack,3 month 1 tab PO DAILY fluoxetine [Prozac] 40 mg capsule 40 mg PO DAILY Primary Care Provider: Karthik Lino Referrals: Karthik Lino MD [Primary Care Provider] - Activity Restrictions/Additional Instructions: Thank you for trusting us with your care today! Please take Tylenol (2 pills, 650 mg), ibuprofen (2 pills, 400 mg) every 6 hours as needed for pain and fever control. Please go to your local pharmacy or drugstore and obtain Esomeprazole (Nexium) and start taking 1 pill daily to relieve symptoms of increased irritation and reflux. Please return to the emergency department if your symptoms change or worsen. Please follow with your primary care physician for further outpatient evaluation and management. Print Language: Tajik Disposition Disposition: Home, Self Care
--- NOTE | 2023-11-18 10:55 | EKG12_ITS ---
Test Reason : ABD PAIN Blood Pressure : / mmHG Vent. Rate : 076 BPM Atrial Rate : 076 BPM P-R Int : 162 ms QRS Dur : 082 ms QT Int : 388 ms P-R-T Axes : 014 032 021 degrees QTc Int : 436 ms Normal sinus rhythm Minor Nonspecific T wave abnormality Borderline ECG Confirmed by Juan Monaco ([id number]), newspaper copy editor COLIN CANAS ([id number]) on 11/20/2023 1:53:44 PM Referred By: Confirmed By:Juan Monaco
--- NOTE | 2023-11-18 10:55 | CT_ITS ---
EXAM: CT ABDOMEN AND PELVIS WITH INTRAVENOUS CONTRAST CLINICAL INDICATION: Abdominal pain status post EGD rule out perf TECHNIQUE: Helically acquired images were obtained of the abdomen and pelvis with intravenous contrast. This CT exam was performed using one or more of the following dose reduction techniques: automated exposure control, adjustment of the mA and/or kV according to patient size, and/or use of iterative reconstruction technique. CONTRAST: IV 100mL [id number] COMPARISON: Lumbar spine radiographs, 08/30/2023 FINDINGS: LOWER THORAX: No significant abnormality. Lung bases are clear. No cardiomegaly. No significant pericardial effusion. ABDOMEN: LIVER: No significant abnormality. Homogeneous. No focal mass. GALLBLADDER AND BILE DUCTS: No significant abnormality. No calcified gallstones. No gallbladder distention or wall edema. No intra- or extrahepatic biliary ductal dilation. PANCREAS: No significant abnormality. No focal cystic or solid mass. SPLEEN: No significant abnormality. Normal size without focal cystic or solid mass. ADRENALS: No significant abnormality. No nodules. KIDNEYS AND URETERS: No significant abnormality. Normal renal size and position. No hydronephrosis. STOMACH AND BOWEL: No significant abnormality. No stomach or bowel distention. No focal inflammatory change. PELVIS: APPENDIX: Normal appendix identified. BLADDER: Mild urinary bladder distention is likely transient/physiologic. REPRODUCTIVE: Normal as visualized. No mass. ABDOMEN and PELVIS: INTRAPERITONEAL SPACE: No free air is identified. Trace free fluid within the pelvis. This may be physiologic. BONES/JOINTS: No significant abnormality. No suspicious lytic or blastic abnormality. SOFT TISSUES: Small fat-containing umbilical hernia. VASCULATURE: No significant abnormality. Abdominal aorta is non-dilated. LYMPH NODES: Clustered mildly prominent lymph nodes within the right lower quadrant are nonspecific. CT/Abdomen/Pelvis W IV Cont ONLY IMPRESSION: 1. Mild urinary bladder distention is likely transient/physiologic. Correlate clinically. No bladder wall thickening to suggest cystitis. 2. No evidence of perforation. Electronically Signed: Chang Hayes DO at 12:21 EDT ,
[2023-11-18 11:20] LABS: Color, Urine Yellow (Yellow); Glucose, Dipstick Normal (Normal); Ketone-Dipstick Negative (Negative); Leukocyte Esterase-Dipstick 25 /ul (Negative); Nitrite-Dipstick Negative (Negative); Occult Blood-Urine Negative /ul (Negative); Protein-Dipstick Negative (Negative); Specific Gravity, Urine 1.015 (1.002-1.030); Urine Bilirubin Dipstick Negative (Negative); Urine Clarity Clear (Clear); Urine Urobilinogen Normal (Normal)
[2023-11-18] MEDS: Ondansetron 4 MG/2 ML Vial IV (11:26)
[2023-11-18] MEDS: 0.9% Normal Saline (1000mL) 1,000 ML 999 ML IV (11:26)
[2023-11-18] MEDS: Famotidine 200 MG/20 ML MDV 20 MG in 0.9% Normal Saline (Pres. free 8 ML 300 MG IV (11:33)
[2023-11-18 11:34] LABS: Absolute Lymphocyte Count 1.38 X10^3/uL (0.83-4.51); Absolute Neutrophil Count 3.6 X10^3/uL (2.0-7.7); Basophil# 0.04 X10^3/uL; Basophil% 0.7 % (0-1); Eosinophil# 0.04 X10^3/uL; Eosinophils% 0.7 % (0-5); Hematocrit 41.3 % (37-47); Hemoglobin 12.8 g/dL (12.0-15.0); Lymphocyte # 1.38 X10^3/ul (0.83-4.51); Lymphocyte % 25.1 % (19-41); Mean Corpuscular Hgb 26.5 pg (27.0-32.0); Mean Corpuscular Volume 85.5 fL (81-99); Mean Platelet Vol. 10.3 fl (6.2-12.0); Monocyte# 0.39 X10^3/uL; Monocyte% 7.1 % (0-10); NRBC Flagged by Analyzer 0 % (0-5); Neutrophil # 3.63 X10^3/uL (2.7-7.7); Neutrophil % 66.2 % (47-70); Platelet Count 353 K/mm3 (150-450); RBC Distribution Width CV 13.2 % (11.6-14.6); RBC Distribution Width SD 41.3 fl (35.1-43.9); Red Blood Count 4.83 M/mm3 (4.2-5.4); White Blood Count 5.5 K/mm3 (4.4-11.0)
[2023-11-18 11:41] LABS: Internal QC Validated? YES +Cl - CLEAR BKGD; Pregnancy, Urine Negative Negative
[2023-11-18 12:05] LABS: Anion Gap 7 (5-15); BUN 7 mg/dL (7-18); BUN/Creat Ratio 8.8 RATIO (10-20); Calcium,Total 8.9 mg/dL (8.5-10.1); Chloride 106 mmol/L (98-107); EST Glomerular Filtration Rate 96 mL/min (>60); Est Glom Filt Rate - Afr Amer 116 mL/min (>60); Estimated Creatinine Clearance 121.54 ml/min; Glucose 89 mg/dL (74-106); Lipase 15 U/L (13-75); Potassium 3.7 mmol/L (3.5-5.1); Sodium Level 138 mmol/L (136-145); Troponin-I HS < 3 pg/mL (3.0-54.0)
[2023-11-18 12:24] VITALS: BP 130/81; PULSE 70; RESP 16; O2SAT 99
--- NOTE | 2023-11-18 12:36 | RAD_ITS ---
EXAM: XR CHEST, 1 VIEW CLINICAL INDICATION: CP TECHNIQUE: Frontal view of the chest. COMPARISON: 11/14/2022 FINDINGS: LUNGS AND PLEURAL SPACES: No significant abnormality. No consolidation or edema. No pneumothorax. No effusion. HEART: Mild cardiomegaly and/or pericardial effusion. MEDIASTINUM: Central airways and mediastinal contour are unremarkable. BONES/JOINTS: No significant abnormality. No acute fracture. SOFT TISSUES: No significant abnormality. RAD/Chest 1 View (Portable) IMPRESSION: Mild cardiomegaly and/or pericardial effusion. This may be exaggerated secondary to technique and positioning. Electronically Signed: Chang Hayes DO at 13:09 EDT ,
[2023-11-18 13:56] VITALS: BP 133/65; PULSE 62; RESP 16; TEMP 36; O2SAT 99
== END 2023-11-18 14:00 | disposition home or self-care (01) ==
PROVIDERS: Emergency Provider Emergency Medicine; PCP Family Medicine; Visit Provider Emergency Medicine
DX: G89.18 Other acute postprocedural pain (principal); R07.9 Chest pain, unspecified; F41.9 Anxiety disorder, unspecified; G90.A Postural orthostatic tachycardia syndrome [POTS]; R10.9 Unspecified abdominal pain; Z98.890 Other specified postprocedural states; Z79.899 Other long term (current) drug therapy
CPT/HCPCS: 71045; 74177; 80048; 81002; 81025; 83690; 84484; 85025; 93005; 96361; 96374; 99284; J7030; Q9967; A4216; J2405; J3490

== ENCOUNTER 2024-02-13 05:29 | Emergency (ER) | payer OTHER, MEDICAID, SELFPAY ==
[2024-02-13 05:30] VITALS: BP 165/104; PULSE 130; RESP 25; TEMP 38.1; O2SAT 98; BMI 41.3
[2024-02-13 05:32] VITALS: BP 165/104; PULSE 132; RESP 20; TEMP 38.1; O2SAT 98
--- NOTE | 2024-02-13 05:46 | RAD_ITS ---
STUDY: X-RAY CHEST REASON FOR EXAM: Female, 23 years old. Fever TECHNIQUE: PA and lateral views of the chest. COMPARISON: Comparison is made with prior study November 18, 2023. FINDINGS: EKG electrodes are seen. Electronic device is seen most likely within the midportion of the esophagus. Clinical correlation is suggested. The lungs are clear and expanded. There is no demonstrated pleural abnormality. Normal size heart. Normal mediastinum and geraldo. Normal visualized pulmonary arteries. Normal visualized aortic arch and descending thoracic aorta. Normal visualized thoracic spine. Normal visualized ribs, clavicles, and shoulders. There is no demonstrated abnormality of the visualized soft tissue structures of the upper abdomen. RAD/Chest PA and Lateral IMPRESSION: No acute abnormality is seen. Electronically Signed: Finn Rizvi MD at 8:31 EDT ,
--- NOTE | 2024-02-13 05:48 | EDS_ITS ---
HPI History of Present Illness Chief Complaint: General Illness Informant: patient Narrative Narrative: Patient is a 23-year-old female with past medical history of POTS. She states on Sunday she began with fevers and chills nasal congestion muscle aches and fatigue. She went to an urgent care on Sunday where she had a negative COVID flu RSV and strep swab. She states that she has been taking [id number] medications but her symptoms are persisting and secondary to that comes in for evaluation. [facility] Medical History Postural orthostatic tachycardia syndrome [POTS] Anxiety Home Medications ?Medication ?Instructions ?Recorded ?Last Taken ?Type L norgest/E estradiol-E estrad 1 tab PO DAILY 05/10/22 10/20/22 History 0.15 mg-30 mcg (84)/10 mcg(7) tabs,3mos (Seasonique) mecobalamin (vitamin B12) 1,000 2,000 mcg PO DAILY 05/24/23 Unknown History mcg chewable tablet metoprolol tartrate 25 mg tablet 50 mg PO BID 11/26/23 Unknown History omeprazole 40 mg capsule,delayed 40 mg PO DAILY 11/26/23 Unknown History release azelastine 137 mcg (0.1 %) nasal 2 spray intranasal BID #30 mL 02/13/24 Unknown Rx spray methocarbamol 500 mg tablet 1,000 mg (2 x 500 mg) PO 4X/DAY 02/13/24 Unknown Rx PRN Muscle pain/spasm #56 tabs prednisone 20 mg tablet 40 mg (2 x 20 mg) PO DAILY 5 days 02/13/24 Unknown Rx #10 tabs Allergy/AdvReac Type Severity Reaction Status Date / Time No Known Allergies Allergy Verified 02/13/24 05:30 Social History Smoking Status: Never smoker alcohol intake: never substance use type: does not use caffeine: Yes (x2 week) ROS ROS ED Constitutional Constitutional ED: Reports chills and fever(s) Eyes Eyes: Denies blurry vision or change in vision ENT ENT ED: Reports rhinorrhea and sore throat Cardiovascular Cardiovascular: Denies chest pain Respiratory/Chest Respiratory/Chest: Denies cough or dyspnea Gastrointestinal Gastrointestinal: Reports nausea; Denies abdominal pain, diarrhea or vomiting Genitourinary Genitourinary ED: Denies dysuria Musculoskeletal Musculoskeletal: Reports myalgias Integumentary Denies rash Neurologic Neurologic: Reports headache(s) Psychiatric Psychiatric: Reports anxiety Hematologic/Lymphatic Hematologic/Lymphatic: Denies easy bleeding or easy bruising Allergic/Immunologic Allergic/Immunologic ED: Denies mouth swelling or tongue swelling EXAM Physical Exam Const Vital Signs: 02/13/24 05:30 02/13/24 05:32 02/13/24 05:33 Temperature 100.6 F H 100.6 F H Temperature Source Oral Oral Pulse Rate 130 H 132 H Respiratory Rate 25 H 20 H Respiratory Effort Normal Respiratory Pattern Normal Blood Pressure 165/104 H 165/104 H Blood Pressure Mean 124 124 Pulse Ox 98 98 Oxygen Delivery Method Room Air Room Air Positive well nourished, well developed and obese General Appearance ED: well developed; Negative for pallor Nutritional Appearance: obese HEENT Reports moist mucous membranes HEENT Narrative: Cobblestoning is noted in the posterior pharynx consistent with sinus drainage without airway edema or compromise No secondary findings to suggest infection Nasal mucosa is hyperemic and boggy with enlarged inferior nasal turbinates Bilateral TMs are retracted but show no secondary findings to suggest infection Eyes PERRL and EOMs intact bilaterally General Eye ED: Negative for scleral icterus Neck supple Neck Narrative: No nuchal rigidity or meningeal signs Chest Wall Negative for palpation of chest normal Resp clear to auscultation bilaterally Resp Narrative: Patient is tachypneic but otherwise has clear lungs throughout without nasal flaring retractions stridor or accessory muscle use Cardio regular rhythm Rate: tachycardic and other Other Details: Tachycardic rate with regular rhythm No murmurs rubs or gallop Radial and carotid pulses are equal and symmetric GI normal to inspection, nondistended, normoactive bowel sounds, non-tender, non- distended and no masses Auscultation: normoactive bowel sounds Palpation: soft Extremity normal to inspection Extremity Narrative: No asymmetric edema no pitting edema negative Homans' sign bilaterally Neuro oriented x3, CN's II-XII intact bilaterally and no sensory deficits noted Sensorium / Orientation: alert Motor Exam: strength 5/5 throughout Psych Mood & Affect: anxious Skin no rashes or lesions noted and No no wounds General Skin Exam: Negative for jaundice or pallor MDM MDM MDM Narrative Medical decision making narrative: Patient arrived to ER hypertensive and tachycardic with low-grade fever. She reported constellation of symptoms consistent with a viral URI that could be caused by COVID versus influenza versus RSV. She was recently tested for these and was negative and as she is not in respiratory distress or hypoxic nor does she have a history of immunosuppression she would not qualify for Paxlovid and therefore I felt no need to repeat testing. However in order to ensure that she did not have acute kidney injury electrolyte abnormality or pneumonia basic blood work and a chest x-ray were obtained. Labs revealed no clinically significant findings and chest x-ray revealed no acute lung pathology. After receiving Toradol Tylenol and IV fluid the patient had resolution of her tachycardia and blood pressure improved as well and the temperature also resolved. On reevaluation she is resting comfortably she is at improvement of her vitals she is not in respiratory distress she is not hypoxic and therefore this time there is no need for further workup as her history and exam and symptoms all correlate with a viral URI and she is otherwise safe for discharge History & Record Review Discussion w/independent historian: Patient Lab Data Attestation: I reviewed the patient's lab results. Labs: Laboratory Results - last 24 hr 02/13/24 05:51 WBC 11.1 H RBC 4.59 Hgb 12.4 Hct 38.5 MCV 83.9 MCH 27.0 MCHC 32.2 RDW Std Deviation 41.0 RDW Coeff of Floridalma 13.3 Plt Count 319 MPV 10.2 Immature Gran % (Auto) 0.400 Neut % (Auto) 79.8 H Lymph % (Auto) 11.5 L Ashley % (Auto) 7.3 Eos % (Auto) 0.5 Baso % (Auto) 0.5 Absolute Neuts (auto) 8.8 H Absolute Lymphs (auto) 1.27 Nucleated RBC % 0 Sodium 137 Potassium 3.6 Chloride 107 Carbon Dioxide 24.0 Anion Gap 6 BUN 7 Creatinine 0.77 Estim Creat Clear Calc 128.63 Est GFR (MDRD) Af Amer 120 Est GFR (MDRD) Non-Af 100 BUN/Creatinine Ratio 9.1 L Glucose 111 H Calcium 8.9 Magnesium 1.8 Radiography Diagnostic Testing: Chest x-ray as interpreted by the emergency medicine physician reveals the patient's capsule endoscopy to be present within the esophagus and no sign of pneumonia/infiltrate or pneumothorax or pleural effusion Discharge Plan Triage Chief Complaint: General Illness ED Provider: Naveen Mathews Dx/Rx/DC Orders Clinical Impression: Viral syndrome, Pyrexia, Postural orthostatic tachycardia syndrome [POTS] Instructions: ED Fever Control (Adult), ED Viral Syndrome (Adult) Prescriptions: New prednisone 20 mg tablet 40 mg PO DAILY 5 Days Qty: 10 0RF azelastine 137 mcg (0.1 %) spray,non-aerosol 2 spray intranasal BID Qty: 30 0RF Rx Instructions: administer into each nostril methocarbamol 500 mg tablet 1,000 mg PO 4X/DAY PRN (Reason: Muscle pain/spasm) Qty: 56 0RF No Action mecobalamin (vitamin B12) 1,000 mcg tablet,chewable 2,000 mcg PO DAILY omeprazole 40 mg capsule,delayed release(DR/EC) 40 mg PO DAILY metoprolol tartrate 25 mg tablet 50 mg PO BID L norgest/e.estradiol-e.estrad [Seasonique] 0.15 mg-30 mcg (84)/10 mcg (7) tablets,dose pack,3 month 1 tab PO DAILY Stand Alone Forms: ED Work / School Excuse Primary Care Provider: Karthik Lino Referrals: Karthik Lino MD [Primary Care Provider] - Activity Restrictions/Additional Instructions: Please continue to control your fever with Tylenol and/or Motrin. Your fever can last up to 7 days with 3 days being the average. If you are having worsening of symptoms or any further concerns please return to the ER for repeat evaluation Print Language: [place] Disposition Disposition: Home, Self Care
[2024-02-13] MEDS: dexAMETHasone 10 MG/ML Vial IV (05:58)
[2024-02-13] MEDS: 0.9% Normal Saline (1000mL) 1,000 ML 999 ML IV (05:58)
[2024-02-13] MEDS: Ketorolac 30 MG/ML Syringe IV (05:58)
[2024-02-13] MEDS: Acetaminophen 500 MG Tablet 1000 MG PO (05:59)
[2024-02-13 06:13] LABS: Absolute Lymphocyte Count 1.27 X10^3/uL (0.83-4.51); Absolute Neutrophil Count 8.8 X10^3/uL (2.0-7.7); Basophil# 0.05 X10^3/uL; Basophil% 0.5 % (0-1); Eosinophil# 0.05 X10^3/uL; Eosinophils% 0.5 % (0-5); Hematocrit 38.5 % (37-47); Hemoglobin 12.4 g/dL (12.0-15.0); Lymphocyte # 1.27 X10^3/ul (0.83-4.51); Lymphocyte % 11.5 % (19-41); Mean Corp Hgb Conc 32.2 g/dL (32-36); Mean Corpuscular Volume 83.9 fL (81-99); Mean Platelet Vol. 10.2 fl (6.2-12.0); Monocyte# 0.81 X10^3/uL; Monocyte% 7.3 % (0-10); NRBC Flagged by Analyzer 0 % (0-5); Neutrophil # 8.84 X10^3/uL (2.7-7.7); Neutrophil % 79.8 % (47-70); Platelet Count 319 K/mm3 (150-450); RBC Distribution Width CV 13.3 % (11.6-14.6); Red Blood Count 4.59 M/mm3 (4.2-5.4); White Blood Count 11.1 K/mm3 (4.4-11.0)
--- OUTSIDE RECORDS SUMMARY | 2024-02-13 06:19 | XMS RPT_ITS | CCD ---
Author Organization [facility] Care Team Providers Care Sawyer Helper Name Role Phone Unavailable Primary Care Provider UnavailBernadette Sparks DO Primary Care Provider [phone] Bernadette Tirado DO Primary Care Provider Bernadette Tirado DO Primary Care Provider [phone] Neela Lino MD Primary Care Provider HEMALATHA ANTHONY Referring Unavailable BERNADETTE TIRADO Primary Care Unavailable JIMBO JENNINGS Attending Unavailable MONSE CHAPIN Referring Unavailable NEELA LINO Primary Care Unavailable ZITA TAMAYO Attending Unavailable BERNADETTE TIRADO Primary Care Unavailable HEMALATHA ANTHONY Referring Unavailable BERNADETTE TIRADO Primary Care Unavailable HEMALATHA ANTHONY Attending Unavailable BERNADETTE TIRADO Primary Care Unavailable HEMALATHA ANTHONY Referring Unavailable BERNADETTE TIRADO Primary Care Unavailable HEMALATHA ANTHONY Attending Unavailable BERNADETTE TIRADO Primary Care Unavailable ARIEL GUO Attending Unavailable NEELA LINO Primary Care Unavailable NEELA LINO Primary Care Unavailable ARIEL GUO Attending Unavailable BERNADETTE TIRADO Primary Care Unavailable HEMALTAHA ANTHONY Referring Unavailable BERNADETTE TIRADO Primary Care Unavailable BERNADETTE TIRADO Primary Care Unavailable HEMALATHA ANTHONY Attending Unavailable SIDNEY BOONE Attending Unavail able NEELA LINO Primary Care Unavailable SIDNEY BOONE Admitting Unavail able SIDNEY BOONE Attending Unavail able SIDNEY BOONE Referring Unavail able NEELA LINO Primary Care Unavailable Medications Current Medications Medication Drug Class(es) Dates Sig (Normalized) Sig (Original) atomoxetine 40 mg oral capsule (4 sources) Norepinephrine Reuptake Inhibitor Start: 01-17-2024 take 1 capsule by mouth once daily atomoxetine (STRATTERA) 40 mg capsule Take 40 mg by mouth once daily. 01/17/2024 Active cetirizine hydrochloride 10 mg oral tablet (19 sources) Histamine-1 Receptor Antagonist Start: 05-09-2023 take 1 tablet by mouth once daily cetirizine (ZYRTEC) 10 mg tablet Take 1 tablet by mouth once daily. 30 tablet 2 05/09/2023 Active Comment on above: Take 1 tablet by nba once daily. fluticasone furoate 0.0275 mg/actuat metered dose nasal spray (16 sources) Corticosteroid Start: 08-31-2023 take 1 spray(s) nasal route twice daily Fluticasone Furoate (FLONASE SENSIMIST) 27.5 mcg/actuation nasal spray Use 1 Morley in each nostril two times a day. 9.1 mL 4 08/31/2023 Active ketotifen 0.25 mg/ml ophthalmic solution (16 sources) Histamine-1 Receptor Inhibitor Start: 08-31-2023 take 1 drop(s) into the eye(s) every twelve hours as needed ketotifen fumarate (ZADITOR) 0.025 % (0.035 %) ophthalmic solution Use 1 Drop in both eyes two times a day as needed. 10 mL 4 08/31/2023 Active L-norgest/e.estradi ol-e.estrad (JAIMIESS ORAL) (16 sources) Start: 04-16-2021 L-norgest/e.estra diol-e.estrad (JAIMIESS ORAL) 04/16/2021 Active Start: 04-16-2021 L-norgest/e.es tradiol-e.estrad (JAIMIESS ORAL) mecobalamin 1 mg chewable tablet (16 sources) Start: 02-14-2023 mecobalamin, vitamin B12, (B12 ACTIVE) 1,000 mcg chew 02/14/2023 Active 24 hr metoprolol succinate 25 mg extended release oral tablet (20 sources) beta-Adrenergic Reymundo Start: 07-31-2023 End: 01-01-2024 take 1 tablet by mouth once daily metoprolol succinate ER (TOPROL XL) 25 mg 24 hr tablet take 1 tablet by mouth every day 30 tablet 3 01/01/2024 Active Start: 02-27-2023 End: 07-31-2023 take 1 tablet by mouth twice daily metoprolol tartrate, short acting, (LOPRESSOR) 25 mg tablet Take 1 tablet by mouth two times a day. 60 tablet 2 02/27/2023 07/31/2023 Discontinued Start: 02-21-2023 take 1 capsule by [facility] once daily metoprolol succinate 25 mg CSpX Take 1 capsule by mouth once daily. 30 capsule 2 02/21/2023 Active Comment on above: Take 1 capsule by [facility] once daily. Take 1 tablet by [facility] two times a day. Take 1 tablet by [facility] once daily. omeprazole 20 mg delayed release oral capsule (20 sources) Proton Pump Inhibitor Start: 08-30-2023 omeprazole (PRILOSEC) 20 mg capsule Takes 40mg before breakfast and 20mg before dinner 08/30/2023 Active Start: 08-17-2023 omeprazole (ME ILOSEC) 40 mg capsule 08/17/2023 Active Completed/Discontinued Medications Medication Drug Class(es) Dates Sig (Normalized) Sig (Original) calcium chloride 0.0014 meq/ml / potassium chloride 0.004 meq/ml / sodium chloride 0.103 meq/ml / sodium lactate 0.028 meq/ml injectable solution (1 source) Start: 02-06-2024 End: 02-07-2024 take 125 mL intravenously every hour 125 mL/hr, INTRAVENOUS, CONTINUOUS, Starting on Sun02/06/24 at 1430, Until Pamela 02/07/24 at 0302, Recovery or Phase I (only) 1 ml fentaNYL 0.05 mg/ml injection (1 source) Opioid Agonist Start: 02-06-2024 End: 02-07-2024 50 mcg, INTRAVENOUS, EVERY 5 MINUTES NEEDED, 2 doses, Starting on Sun02/06/24 at 1404, Until Pamela 02/07/24 at 0302, FIRST LINE THERAPY for mild, moderate, or severe pain, Every 5 minutes. Use if patient unable to tolerate oral therapy. Hold for respiratory rate less than 12 Max total dose: 100 mcg, Recovery or Phase I (only) FLUoxetine 40 mg oral capsule (20 sources) Serotonin Reuptake Inhibitor End: 01-30-2024 take 1 capsule by mouth once daily FLUoxetine (PROZAC) 40 mg capsule Take 40 mg by mouth once daily. 01/30/2024 Discontinued Comment on above: Take 40 mg by mouth once daily. 1 ml HYDROmorphone hydrochloride 2 mg/ml injection (1 source) Opioid Agonist Start: 02-06-2024 End: 02-07-2024 0.5 mg, INTRAVENOUS, EVERY 10 MINUTES NEEDED, 4 doses, Starting on Sun02/06/24 at 1404, Until Pamela 02/07/24 at 0302, SECOND LINE THERAPY for mild, moderate, or severe pain, Every 10 minutes. Use if patient unable to tolerate oral therapy. Hold for respiratory rate less than 12 Max total dose: 2 mg Caution: IV hydromorphone is approximately 8 times MORE POTENT than IV morphine. For example, hydromorphone 1mg IV = morphine 8mg IV, Recovery or Phase I (only) 4 ml labetalol hydrochloride 5 mg/ml cartridge (1 source) beta-Adrenergic Reymundo Start: 02-06-2024 End: 02-07-2024 5 mg, INTRAVENOUS, EVERY 10 MINUTES NEEDED, 4 doses, Starting on Sun02/06/24 at 1404, Until Pamela 02/07/24 at 0302, Give for blood pressure of:, Contact anesthesia provider if given. For systolic BP greater than 200 or diastolic BP greater than 100. Hold for HR less than 60., Protect From Light, Recovery or Phase I (only) 1 ml meperidine hydrochloride 25 mg/ml cartridge (1 source) Opioid Agonist Start: 02-06-2024 End: 02-07-2024 12.5 mg, INTRAVENOUS, EVERY 10 MINUTES NEEDED, 2 doses, Starting on Sun02/06/24 at 1404, Until Pamela 02/07/24 at 0302, for shivering, May Repeat 12.5 mg in 10 minutes X1 for Continued Shivering, Recovery or Phase I (only) 2 ml metoclopramide 5 mg/ml injection (1 source) Dopamine-2 Receptor Antagonist Start: 02-06-2024 End: 02-06-2024 5 mg, INTRAVENOUS, ONCE, 1 dose, On Sun02/06/24 at 1200, Pharmacist may modify dose per [facility] dose optimization consult agreement: Yes 2 ml ondansetron 2 mg/ml injection (1 source) Serotonin-3 Receptor Antagonist Start: 02-06-2024 End: 02-06-2024 4 mg, INTRAVENOUS, ONCE, 1 dose, On Sun02/06/24 at 1200, Give IV push over 2 minutes oxyCODONE hydrochloride 5 mg oral tablet (1 source) Opioid Agonist Start: 02-06-2024 End: 02-07-2024 5 mg, ORAL, NEEDED, 1 dose, Starting on Sun02/06/24 at 1404, Until Pamela 02/07/24 at 0302, Moderate Pain (4-6) - Enteral, Recovery or Phase I (only) propranolol hydrochloride 20 mg oral tablet (1 source) beta-Adrenergic Reymundo Start: 01-09-2023 End: 02-21-2023 take 1 tablet by mouth once daily propranolol (INDERAL) 20 mg tablet Take 1 tablet by mouth once daily. 30 tablet 2 01/09/2023 02/21/2023 Discontinued Comment on above: Take 1 tablet by nba once daily. Problems Active Problems Problem Classification Problem Date Documented Date Episodic/Chronic Allergic reactions (1 source) Adverse reaction to food; Translations: [Other adverse food reactions, not elsewhere classified, subsequent encounter] 08-31-2023 Episodic Cardiac dysrhythmias (5 sources) Postural orthostatic tachycardia syndrome ; Translations: [POTS (postural orthostatic tachycardia syndrome)] Onset: 05-17-2022 09-05-2023 Chronic Esophageal disorders (20 sources) Gastroesophageal reflux disease without esophagitis; Translations: [Gastro-esophageal reflux disease without esophagitis] Onset: 09-12-2022 10-04-2022 Chronic Inflammation; infection of eye (except that caused by tuberculosis or sexually transmitteddisease) (1 source) Chronic allergic conjunctivitis; Translations: [Other chronic allergic conjunctivitis] 08-31-2023 Chronic Nausea and vomiting (5 sources) Nausea; Translations: [Nausea] Onset: 05-18-2023 05-18-2023 Episodic Other circulatory disease (2 sources) Orthostatic hypotension; Translations: [Orthostatic hypotension] Episodic Other connective tissue disease (1 source) Swelling of hand; Translations: [Other specified soft tissue disorders] 09-05-2023 Episodic Other injuries and conditions due to external causes (1 source) Injury of head; Translations: [Unspecified injury of head, initial encounter] Episodic Other nervous system disorders (1 source) Polyneuropathy, unspecified; Translations: [Small fiber neuropathy] Onset: 01-09-2023 Chronic Other nutritional; endocrine; and metabolic disorders (1 source) Severe obesity; Translations: [Class 3 severe obesity due to excess calories without serious comorbidity with body mass index (BMI) of 40.0 to 44.9 in adult ([facility])] 01-30-2024 Chronic Other nutritional; endocrine; and metabolic disorders (4 sources) Body mass index 40+ - severely obese; Translations: [Morbid (severe) obesity due to excess calories] Onset: 02-06-2024 02-06-2024 Chronic Other nutritional; endocrine; and metabolic disorders (1 source) Morbid (severe) obesity due to excess calories; Translations: [Class 3 severe obesity due to excess calories without serious comorbidity with body mass index (BMI) of 40.0 to 44.9 in adult ([facility])] Onset: 01-30-2024 Chronic Other nutritional; endocrine; and metabolic disorders (1 source) Body mass index (BMI) 40.0-44.9, adult; Translations: [Class 3 severe obesity due to excess calories without serious comorbidity with body mass index (BMI) of 40.0 to 44.9 in adult ([facility])] Onset: 01-30-2024 Chronic Other upper respiratory disease (1 source) Chronic rhinitis; Translations: [Chronic rhinitis] 08-31-2023 Chronic Other upper respiratory infections (1 source) Acute upper respiratory infection; Translations: [Acute upper respiratory infection, unspecified] 02-12-2024 Episodic Residual codes; unclassified (5 sources) Obstructive sleep apnea syndrome; Translations: [Obstructive sleep apnea (adult) (pediatric)] Onset: 02-06-2024 09-05-2023 Chronic Residual codes; unclassified (1 source) Altered mental status; Translations: [Altered mental status, unspecified] 09-05-2023 Episodic Residual codes; unclassified (1 source) Procedure not done; Translations: [Procedure and treatment not carried out, unspecified reason] 11-18-2023 Episodic Spondylosis; intervertebral disc disorders; other back problems (1 source) Disorder of left sciatic nerve; Translations: [Sciatica, left side] 09-05-2023 Episodic Unclassified (1 source) Class 3 severe obesity due to excess calories without serious comorbidity with body mass index (BMI) of 40.0 to 44.9 in adult ([facility]); Translations: [Class 3 severe obesity due to excess calories without serious comorbidity with body mass index (BMI) of 40.0 to 44.9 in adult ([facility])] Onset: 01-30-2024 Past or Other Problems Problem Classification Problem Date Documented Da te Episodic/Chronic Abdominal pain (2 sources) Indigestion; Translations: [Epigastric pain] Onset: 05-18-2023 05-18-2023 Episodic Conditions associated with dizziness or vertigo (20 sources) Dizziness; Translations: [Dizziness and giddiness] Onset: 07-03-2022 10-04-2022 Episodic Headache; including migraine (20 sources) Headache; Translations: [Headache] Onset: 10-04-2022 10-04-2022 Episodic Other connective tissue disease (1 source) Other specified soft tissue disorders; Translations: [Bilateral hand swelling] Onset: 09-05-2023 Episodic Residual codes; unclassified (1 source) Altered mental status, unspecified; Translations: [Altered mental status, unspecified altered mental status type] Onset: 06-26-2023 Episodic Results Test Name Value Interpretation Reference Range Facility STREP A MOLECULAR (POC)on Procedural Control Valid [facility] Strep A (POCT) Negative Negative [facility] CNPNon 02-07-2024 CNPN Telephone (AGGENS3) ACE LEONARDO ([id number]) 2 F Date Time Provider Department 02/07/24 SIDNEY BOONE3 During your visit today, we recorded the following information about you: Remigio Villar, HERI 02/07/2024 4:16 PM Signed Patient sent a UPEKt message about the [employer]alls protective clothing issuer so I called her for more information. Ace said that the protective clothing issuer has disconnected about 5 times since last night, even though it is sitting on my lap. It does reconnect . Patient states the red light flashes and it beeps when it is disconnected but it will reconnect itself. Currently the protective clothing issuer is connected. Patient is using the lanyard or keeping the protective clothing issuer in her lap. Patient states she can feel the Smalls capsule in her throat. I asked the patient to try to ride it out until tomorrow afternoon, when the test should be completed, as I believe the protective clothing issuer is still working. I did tell her that if the protective clothing issuer starts beeping continuously then put it in another room or her car so it does not keep her awake overnight. Patient agreed with the plan. I gave the patient my contact information. Remigio Villar RN Allergies As of Date: 02/07/2024 (No Known Allergies) Date Reviewed: 02/06/2024 Reviewed by: Pam Price RN - Fully Assessed Reason for Visit: Patient Question [5977] Prescriptions as of 02/07/2024 - atomoxetine (STRATTERA) 40 mg capsule Take 40 mg by mouth once daily. - metoprolol succinate ER (TOPROL XL) 25 mg 24 hr tablet take 1 tablet by mouth every day - L-norgest/e.estradiol- e.estrad (JAIMIESS ORAL) - mecobalamin, vitamin B12, (B12 ACTIVE) 1,000 mcg chew - omeprazole (PRILOSEC) 40 mg capsule - omeprazole (PRILOSEC) 20 mg capsule Takes 40mg before breakfast and 20mg before dinner - Fluticasone Furoate (FLONASE SENSIMIST) 27.5 mcg/actuation nasal spray Use 1 Morley in each nostril two times a day. - ketotifen fumarate (ZADITOR) 0.025 % (0.035 %) ophthalmic solution Use 1 Drop in both eyes two times a day as needed. - cetirizine (ZYRTEC) 10 mg tablet Take 1 tablet by mouth once daily. Problem List As Of Date 02/07/2024 Noted Resolved Gastroesophageal reflux disease [K21.9] 09/12/2022 Dizziness [R42] 07/03/2022 Headache [R51] 10/04/2022 Postural orthostatic tachycardia syndrome (POTS*05/17/2022 Pre-op examination [Z01.818] 02/06/2024 MIRTA (obstructive sleep apnea) [G47.33] 02/06/2024 Obesity, Class III, BMI >= 40 [E66.01] 02/06/2024 Encounter Status:Closed by REMIGIO VILLAR on 02/07/24 [facility] ANES POSTPROC EVALon 024 ANES POSTPROC EVAL HNO ID: [id number] Author: NEELA DODGE MD Service: Anesthesiology Author Type: Physician Type: Anesthesia Postprocedure Evaluation Filed: 02/06/2024 14:04 Note Text: POST ANESTHESIA EVALUATION NOTE : 2000 Procedure Summary Date: 02/06/24 Room / Location: [place] [facility] / [place] [facility] Anesthesia Start: 1332 Anesthesia Stop: 1353 Procedures: EGD WITH BIOPSY (Left: Abdomen) ESOPHAGEAL ACID REFLUX TEST W/MUCOSAL ATTACHED TELEMETRY PH ELECTRODE PLACEMENT RECORDING, ANALYSIS, AND INTERPRETATION [] (Esophagus) Diagnosis: Gastroesophageal reflux disease, unspecified whether esophagitis present (Gastroesophageal reflux disease, unspecified whether esophagitis present [K21.9]) Surgeons: Sidney Boone MD Responsible Provider: Neela Dodge MD Anesthesia Type: MAC ASA Status: 2 Anesthesia Type: MAC Last Vitals Vitals Value Taken Time BP 108/62 02/06/24 1352 Temp 36.2 ?C (97.2 ?F) 02/06/24 1352 Pulse 85 02/06/24 1352 Resp 17 02/06/24 1352 SpO2 97 % 02/06/24 1352 Post Anesthesia Patient Status Patient Evaluation: PACU. PACU/ICU Patient Condition: stable. Anticipated Disposition: phase 2 then home. Neurological Status: aware and responsive. Pulmonary Status: breathing comfortably on room air Airway Control: returned to baseline unsupported. Cardiovascular Status: stable. Pain Management: clinically adequate Postoperative Hydration: acceptable. Intraoperative Events: no significant anesthesia events Post Operative Nausea/Vomiting Status: no significant post operative nausea or vomiting Recommendation: continue current plan of care. Anesthesia Observations No Documentation SIGNATURE: Neela Dodge MD PATIENT NAME: Ace Leonardo DATE: February 06, 2024 TIME: 2:04 PM CSN: [id number] [facility] ANES PRE-OPon 02-06-2024 ANES PRE-OP HNO ID: [id number] Author: NEELA DODGE MD Service: Anesthesiology Author Type: Physician Type: Anesthesia Preprocedure Evaluation Filed: 02/06/2024 12:02 Note Text: ANESTHESIOLOGY DAY OF SURGERY NOTE : 2000 Procedure Information Date/Time: 02/06/24 1330 Procedures: EGD WITH BIOPSY (Left: Abdomen) ESOPHAGEAL ACID REFLUX TEST W/MUCOSAL ATTACHED TELEMETRY PH ELECTRODE PLACEMENT RECORDING, ANALYSIS, AND INTERPRETATION [] (Esophagus) Location: [place] [facility] [place] [facility] Surgeons: Sidney Boone MD Estimated body mass index is 41.34 kg/m? as calculated from the following: Height as of 01/30/24: 157.5 cm (5' 2 ). Weight as of 01/30/24: 102.5 kg (226 lb). Most recent hematocrit and potassium results: Hematocrit 41.6 01/09/2023 Potassium 4.6 01/09/2023 Reports PONV with last endoscopy Chart review shows administration of lidocaine, propofol and midazolam Explained this is likely unrelated to anesthesia given no agents assoc with PONV were given Plan to pretreat in preop with Zofran and Reglan Relevant Problems ANESTHESIA (+) MIRTA (obstructive sleep apnea) GI (+) Gastroesophageal reflux disease NEURO-PSYCH (+) Headache PULMONARY (+) MIRTA (obstructive sleep apnea) I - PHYSICAL EVALUATION AIRWAY Patient intubated: No. Tracheostomy tube not present Mallampati: II. TM distance: >3 FB. Neck ROM: full ROM without neurological symptoms. Mouth opening: adequate. Short neck: no. Thick neck: no II - ANESTHESIA PLAN ASA Score: 2 Anesthetic Plan: MAC Beta Reymundo Monitoring Plan Monitoring plan: standard ASA. Post Procedure Analgesic Plan Postoperative analgesic plan: parenteral or oral opioids. Informed Consent Anesthetic risks, benefits, alternatives, personnel and consent discussed: yes. Patient / Responsible Alliance Party agrees to proceed: yes Patient / Surrogate agrees to blood products: blood products not planned Vitals Value Taken Time BP 124/82 02/06/24 1144 Pulse Resp 19 02/06/24 1144 Temp 36.8 ?C (98.3 ?F) 02/06/24 1144 SpO2 100 % 02/06/24 1144 No current facility-administered medications on file as of 02/06/2024. Outpatient Medications as of 02/06/2024 Medication Sig metoprolol succinate ER (TOPROL XL) 25 mg 24 hr tablet take 1 tablet by mouth every day (Patient taking differently: Take 50 mg by mouth once daily.) L-norgest/e.estradiol- e.estrad (JAIMIESS ORAL) mecobalamin, vitamin B12, (B12 ACTIVE) 1,000 mcg chew omeprazole (PRILOSEC) 20 mg capsule Takes 40mg before breakfast and 20mg before dinner cetirizine (ZYRTEC) 10 mg tablet Take 1 tablet by mouth once daily. omeprazole (PRILOSEC) 40 mg capsule Fluticasone Furoate (FLONASE SENSIMIST) 27.5 mcg/actuation nasal spray Use 1 Morley in each nostril two times a day. ketotifen fumarate (ZADITOR) 0.025 % (0.035 %) ophthalmic solution Use 1 Drop in both eyes two times a day as needed. I have interviewed and examined the patient. I have reviewed the medical record and/or the pre-anesthesia evaluation, pertinent labs, and test results. This contains updated information obtained within 48 hours of Surgery/Procedure. SIGNATURE: Neela Dodge MD PATIENT NAME: Ace Leonardo DATE: February 06, 2024 TIME: 11:47 AM CSN: [id number] Normal [facility] EGD Study observation Brock harris 02-06-2024 [facility] Gastrointestinal Endoscopy Patient Name: Ace Leonardo Procedure Date: 02/06/2024 1:24 PM Date of : 2000 Admit Type: Outpatient Room: [place] [address] Gender: Female Note Status: Finalized Attending MD: Sidney Boone MD, [id number] Procedure: Upper GI endoscopy Indications: Suspected gastro-esophageal reflux disease Providers: Sidney Boone MD Referring Physician: Sidney Boone MD (Referring MD) Medicines: Monitored Anesthesia Care Complications: No immediate complications. Procedure: Pre-Anesthesia Assessment: - Prior to the procedure, a History and Physical was performed, and patient medications and allergies were reviewed. The patient's tolerance of previous anesthesia was also reviewed. The risks and benefits of the procedure and the sedation options and risks were discussed with the patient. All questions were answered, and informed consent was obtained. Prior Anticoagulants: The patient has taken no anticoagulant or antiplatelet agents. ASA Grade Assessment: II - A patient with mild systemic disease. After reviewing the risks and benefits, the patient was deemed in satisfactory condition to undergo the procedure. After obtaining informed consent, the endoscope was passed under direct vision. Throughout the procedure, the patient's blood pressure, pulse, and oxygen saturations were monitored continuously. The Endoscope was introduced through the mouth, and advanced to the second part of duodenum. I was present and participated during the entire procedure, including non-hernandez portions, and during the administration and monitoring of Moderate Sedation. The upper GI endoscopy was accomplished without difficulty. The patient tolerated the procedure well. Moderate Sedation: Exam was performed under monitored anesthesia care (MAC) Findings: The Z-line was regular and was found 34 cm from the incisors. The SMALLS capsule with delivery system was introduced through the mouth and advanced into the esophagus, such that the SMALLS pH capsule was positioned 28 cm from the incisors, which was 6 cm proximal to the GE junction. The SMALLS pH capsule was then deployed and attached to the esophageal mucosa. The delivery system was then withdrawn. Endoscopy was utilized for probe placement and diagnostic evaluation. Biopsies were taken with a cold forceps for histology. The gastroesophageal flap valve was visualized endoscopically and classified as Hill Grade II (fold present, opens with respiration). The entire examined stomach was normal. Biopsies were taken with a cold forceps for histology. The second portion of the duodenum was normal. Estimated Blood Loss: Estimated blood loss: none. Impression: - Z-line regular, 34 cm from the incisors. Biopsied. - Gastroesophageal flap valve classified as Hill Grade II (fold present, opens with respiration). - Normal stomach. Biopsied. - Normal second portion of the duodenum. - The SMALLS pH capsule was deployed. Recommendation: - Resume previous diet. - Await pathology results. - The patient is not currently taking anticoagulant or antiplatelet agents. Procedure Code(s): --- Professional --- 07600, Esophagogastroduodenos copy, flexible, transoral; with biopsy, single or multiple --- Technical --- 51947, Esophagogastroduodenos copy, flexible, transoral; with biopsy, single or multiple 42583, TC, Esophagus, gastroesophageal reflux test; with mucosal attached telemetry pH electrode placement, recording, analysis and interpretation CPT copyright 2020 [employer]. All rights reserved. The codes documented in this report are (more content not included)... PROVATION [facility] Radiology Study observation (narrative) [facility] HCG ( test) Ql (U)O rdered By: Mary Maier on 02-06-2024 Interpretation and review of laboratory results Normal [facility] HCG Preg Ur Qlon 02-06-2024 HCG ( test) Ql (U) Negative Normal Negative [facility] Comment on above: Order Comment: Speci men Type: URINE SPECIMEN Ordering Facility: [facility] Address: [address] [place] [address] Result Comment: This test is intended to aid in the early detection of . Very dilute urine samples, as indicated by a low specific gravity, may not contain publications sales representative levels of hCG. This test detects intact hCG only. This test does not reliably detect hCG degradation products, including free-beta subunit and beta-core fragment. Therefore, this test may show reduced reactivity in urine after 8 weeks gestation. A number of conditions other than , including trophoblastic disease and certain non-trophoblastic neoplasms cause elevated levels of hCG. As with any assay employing mouse antibodies, the possibility exists for interference by human anti-mouse antibodies (HAMA) in the specimen. The test provides a presumptive diagnosis for . Performed By: #### 2 106-3 #### [facility] CLIA [id number] [address] [place] [address] [place] HCG, QUALITATIVE, URINE PREG NANCYOrdered By: Mary Maier on 02-06-2024 HCG ( test) Ql (U) Negative Negative [facility] Comment on above: This test is intende d to aid in the early detection of . Very dilute urine samples, as indicated by a low specific gravity, may not contain publications sales representative levels of hCG. This test detects intact hCG only. This test does not reliably detect hCG degradation products, including free-beta subunit and beta-core fragment. Therefore, this test may show reduced reactivity in urine after 8 weeks gestation. A number of conditions other than , including trophoblastic disease and certain non-trophoblastic neoplasms cause elevated levels of hCG. As with any assay employing mouse antibodies, the possibility exists for interference by human anti-mouse antibodies (HAMA) in the specimen. The test provides a presumptive diagnosis for . HISTORY PHYSICALon HISTORY PHYSICAL HNO ID: [id number] Author: KARLY MAGAÑA APRN.CNP Service: Anesthesiology Author Type: Nurse Practitioner Type: H&P Filed: 02/06/2024 12:02 Note Text: HISTORY AND PHYSICAL EXAMINATION SERVICE DATE: 02/06/2024 SERVICE TIME: 11:45 AM PRIMARY CARE PHYSICIAN: Neela Lino MD, MD REASON FOR VISIT: The reason for this visit is To perform a comprehensive review of the patients past medical history, assess their current health status and obtain any additional testing required based on anesthesia guidelines. To assess and identify potential anesthesia problems, particularly those that may suggest potential complications or contraindications to the planned procedure. The patient has the following: ACTIVE PROBLEM LIST Gastroesophageal Reflux Disease Dizziness Headache Postural Orthostatic Tachycardia Syndrome (Pots) Pre-Op Examination Mirta (Obstructive Sleep Apnea) Obesity, Class III, BMI >= 40 Subjective CHIEF COMPLAINT: Preoperative Examination HPI: Patient present to [facility] for the above procedure. Patient here for routine Upper GI Endoscopy screening. Patient states that her last EGD was in November. Patient denies any N/V/D or constipation. Denies any abdominal pain. Denies any melena, hematochezia, or hematemesis. Patient denies any other problems at this time. Endorses family history of esophageal cancer in paternal grandfather. Patient is agreeable to planned procedure. METS: Walk a block or two on level ground (2.75 METs) Patient denies any CP/SOB with above activity. History reviewed. No pertinent past medical history. PAST SURGICAL HISTORY Procedure Laterality Date EGD W/O [facility] SPEC VARICIES INJ 11/16/2023 FAMILY HISTORY Problem Relation Age of Onset Seizures Maternal Grandmother Heart Unknown maternal and paternal side Hypertension Unknown maternal great mother Cancer Unknown brain cancer- maternal great aunt other (hearing problems [Other]) Unknown maternal grandmother SOCIAL HISTORY: Social History Tobacco Use Smoking status: Never Smokeless tobacco: Never Vaping Use Vaping status: Never Used Substance Use Topics Alcohol use: Not Currently Drug use: Never Prior to Admission medications as of 02/06/24 1149 Medication Sig Last Dose Taking metoprolol succinate ER (TOPROL XL) 25 mg 24 hr tablet take 1 tablet by mouth every day Patient taking differently: Take 50 mg by mouth once daily. 02/05/2024 at 1400 Yes L-norgest/e.estradiol- e.estrad (JAIMIESS ORAL) 02/05/2024 at 1400 Yes mecobalamin, vitamin B12, (B12 ACTIVE) 1,000 mcg chew 02/05/2024 at 1400 Yes cetirizine (ZYRTEC) 10 mg tablet Take 1 tablet by mouth once daily. 02/05/2024 at 1000 Yes atomoxetine (STRATTERA) 40 mg capsule Take 40 mg by mouth once daily. omeprazole (PRILOSEC) 40 mg capsule 01/30/2024 omeprazole (PRILOSEC) 20 mg capsule Takes 40mg before breakfast and 20mg before dinner 01/30/2024 Fluticasone Furoate (FLONASE SENSIMIST) 27.5 mcg/actuation nasal spray Use 1 Morley in each nostril two times a day. ketotifen fumarate (ZADITOR) 0.025 % (0.035 %) ophthalmic solution Use 1 Drop in both eyes two times a day as needed. No medication comments found. ALLERGIES No Known Allergies REVIEW OF SYSTEMS: PAIN ASSESSMENT: Pain Pain Level: 0 Pain Assessment: Assessment Tool: Verbal (Numeric Rating or Visual Analog Scale) General: Denies fever, chills, and unexpected weight change. Neuro: Denies dizziness and headaches. Respiratory: Denies SOB. +MIRTA Cardiovascular: Denies CP and palpitations. +POTS GI: See HPI. : Denies dysuria. Endocrine: No history of diabetes or thyroid conditions. Hematology: Denies history of bleeding or clotting disorder. No known autoimmune disorders. Psych: Denies anxiety/depression. Musculoskeletal: Denies joint pain and swelling. Skin: Denies open sores and rashes. Objective PHYSICAL EXAM: VITALS: BP 124/82 Pulse 88 Temp (Src) 98.3 (Temporal) Resp 19 SpO2 100% O2 Therapy: Room Air General: NAD. Cooperative. Skin: Skin is warm, no rashes, and no open sores. HEENT: Normocephalic. Cardiovascular: Normal S1 AND S2. No murmur. Lungs: CTA Bilaterally. No respiratory distress. Abdomen: Soft. Pos BS x4quad Extremities: No edema. Neurological: Alert and oriented to person, place, and time. Pulses: radial pulses +2 Diagnostic tests reviewed for today's visit: Lab Value Units Date High Low HB No results within date range. HCT No results within date range. WBC No results within date range. PLT No results within date range. NA No results within date range. K No results within date range. GLUC No results within date range. BUN No results within date range. CREAT No results within date range. PTSEC No results within date range. INR No results within date range. APTT No results within date range. ALT No results within date range. AST No results within date range. TBILI No r (more content not included)... Normal [facility] NURSING PROGon 02-06-2024 NURSING PROG HNO ID: [id number] Author: BRANDIE HAMM RN Service: Nursing Author Type: Registered Nurse Type: Nursing Progress Note Filed: 02/06/2024 12:53 Note Text: This patient was taken into the procedure room. Informed consent was verified and all the allergies reviewed prior to the procedure. The manometry catheter was inserted to the left nares without difficulty. This patient denies any injuries or surgeries .This patient denied any use of blood thinner and/ or muscle relaxants. This patient was informed of potential nasal congestion and minimal nasal bleeding. This patient tolerated this procedure well. Normal [facility] SURGICAL PATHOLOGYon CASE REPORT Normal [facility] Comment on above: Order Comment: Jonnathan jones Type: TISSUE SPECIMEN Ordering Facility: [facility] Address: [address] [place] [address] Result Comment: Surg ica Pathology Report Case: [id number] Authorizing Provider: Sidney Boone, Collected: 02/06/2024 01:42 PM Ordering Location: [facility] Received: 02/07/2024 10:53 AM Pathologist: Sarah Child MD Specimens: A) - Stomach, Antrum, Biopsy B) - Esophagogastric Junction, Biopsy Performed By: #### S #### [facility] CLIA [id number] [address] [place] [address] STATES OF [facility] CLINICAL HISTORY Normal [facility] Comment on above: Order Comment: Jonnathan jones Type: TISSUE SPECIMEN Ordering Facility: [facility] Address: [address] [place] [address] Result Comment: Pre- op diagnosis: Gastroesophageal reflux disease, unspecified whether esophagitis present [K21.9] Performed By: #### S #### [facility] CLIA [id number] [address] FINAL DIAGNOSIS Normal [facility] Comment on above: Order Comment: Speci men Type: TISSUE SPECIMEN Ordering Facility: [facility] Address: [address] [place] [address] Result Comment: A. S tomach antrum, biopsy: -- Antral-type gastric mucosa with no significant histopathologic abnormalities. -- No morphologic evidence of H. pylori organisms identified on H&E sections. B. Esophagogastric junction, biopsy: -- Squamous mucosa with no significant histopathologic abnormalities. -- No glandular type mucosa present for evaluation. Performed By: #### S #### [facility] CLIA [id number] [address] [place] [address] FINAL PERFORMING LAB Normal [facility] Comment on above: Order Comment: Speci men Type: TISSUE SPECIMEN Ordering Facility: [facility] Address: [address] [place] [address] Result Comment: Diag nostic interpretation performed at [facility], [address] [place] [address] CLIA# [id number] Monument Stonecutter: Tony Donahue M.D. Performed By: #### S #### [facility] CLIA [id number] [address] [place] [address] GROSS DESCRIPTION Normal [facility] Comment on above: Order Comment: Speci men Type: TISSUE SPECIMEN Ordering Facility: [facility] Address: [address] [place] [address] Result Comment: A. S ethan, Antrum, Biopsy Received in formalin labeled stomach antrum biopsy are 2 irregular pascual soft tissue fragments aggregating to 0.4 x 0.3 x 0.2 cm.The specimen is submitted entirely in A1. B. Esophagogastric Junction, Biopsy Received in formalin labeled esophagogastric junction biopsy are multiple irregular pascual soft tissue fragments aggregating to 0.8 x 0.6 x 0.1 cm. The specimen is submitted entirely in B1. Gross examination performed at [facility], [address] [facility], [place] [address] CLIA#[id number] OLS February 07, 2024 12:14 PM Performed By: #### S #### [facility] CLIA [id number] [address] [place] [address] [place] STATES OF [facility] Upper GI endoscopy 024 Upper GI endoscopy [facility] Gastrointestinal Endoscopy Patient Name: Ace Leonardo Procedure Date: 02/06/2024 1:24 PM Date of : 2000 Admit Type: Outpatient Room: [place] [address] Gender: Female Note Status: Finalized Attending MD: Sidney Boone MD, [id number] Procedure: Upper GI endoscopy Indications: Suspected gastro-esophageal reflux disease Providers: Sidney Boone MD Referring Physician: Sidney Boone MD (Referring MD) Medicines: Monitored Anesthesia Care Complications: No immediate complications. Procedure: Pre-Anesthesia Assessment: - Prior to the procedure, a History and Physical was performed, and patient medications and allergies were reviewed. The patient's tolerance of previous anesthesia was also reviewed. The risks and benefits of the procedure and the sedation options and risks were discussed with the patient. All questions were answered, and informed consent was obtained. Prior Anticoagulants: The patient has taken no anticoagulant or antiplatelet agents. ASA Grade Assessment: II - A patient with mild systemic disease. After reviewing the risks and benefits, the patient was deemed in satisfactory condition to undergo the procedure. After obtaining informed consent, the endoscope was passed under direct vision. Throughout the procedure, the patient's blood pressure, pulse, and oxygen saturations were monitored continuously. The Endoscope was introduced through the mouth, and advanced to the second part of duodenum. I was present and participated during the entire procedure, including non-hernandez portions, and during the administration and monitoring of Moderate Sedation. The upper GI endoscopy was accomplished without difficulty. The patient tolerated the procedure well. Moderate Sedation: Exam was performed under monitored anesthesia care (MAC) Findings: The Z-line was regular and was found 34 cm from the incisors. The SMALLS capsule with delivery system was introduced through the mouth and advanced into the esophagus, such that the SMALLS pH capsule was positioned 28 cm from the incisors, which was 6 cm proximal to the GE junction. The SMALLS pH capsule was then deployed and attached to the esophageal mucosa. The delivery system was then withdrawn. Endoscopy was utilized for probe placement and diagnostic evaluation. Biopsies were taken with a cold forceps for histology. The gastroesophageal flap valve was visualized endoscopically and classified as Hill Grade II (fold present, opens with respiration). The entire examined stomach was normal. Biopsies were taken with a cold forceps for histology. The second portion of the duodenum was normal. Estimated Blood Loss: Estimated blood loss: none. Impression: - Z-line regular, 34 cm from the incisors. Biopsied. - Gastroesophageal flap valve classified as Hill Grade II (fold present, opens with respiration). - Normal stomach. Biopsied. - Normal second portion of the duodenum. - The SMALLS pH capsule was deployed. Recommendation: - Resume previous diet. - Await pathology results. - The patient is not currently taking anticoagulant or antiplatelet agents. Procedure Code(s): --- Professional --- 19584, Esophagogastroduodenos copy, flexible, transoral; with biopsy, single or multiple --- Technical --- 28626, Esophagogastroduodenos copy, flexible, transoral; with biopsy, single or multiple 87093, TC, Esophagus, gastroesophageal reflux test; with mucosal attached telemetry pH electrode placement, recording, analysis and interpretation CPT copyright 2020 [employer]. All rights reserved. The codes documented in this report are preliminary and upon beading installer review may be revised to meet current compliance requirements. Attending Participation: I personally performed the entire procedure. Scope In: 1:38:44 PM Scope Out: 1:49:11 PM MD Sidney Byrd MD 02/06/2024 2:02:20 PM This report has been signed electronically by Sidney Boone MD Number of Addenda: 0 Note Initiated On: 02/06/2024 1:24 PM Normal [facility] CNOVon 01-30-2024 CNOV Office Visit (AGGENS 3) ACE LEONARDO ([id number]) 2 F Date Time Provider Department 01/30/24 9:45 AM SIDNEY BOONE AGGENS3 During your visit today, we recorded the following information about you: Pulse Respiration Blood pressure Weight 72/minute 18/minute 131/77 102.5 kg Height 1.575 m Sidney Boone MD 01/30/2024 10:57 AM Signed Consultation requested by Dr. Guo for an opinion regarding GERD testing. My final recommendations will be communicated back to the requesting physician by way of shared Medical record or letter to requesting physician via US mail. Ace Leonardo is a 23 year old White female who presents with complaints of GERD and regurgitation. She had a gastric emptying study which was normal. The regurgitation happens daily. She had an EGD which was essentially normal. She is on omeprazole which does help with some of her symptoms. She drinks 1 large cup of coffee per day. Will drink 1 can of noncaffeinated pop per day. Denies any alcohol or tobacco use. History reviewed. No pertinent past medical history. PAST SURGICAL HISTORY Procedure Laterality Date EGD W/O [facility] SPEC VARICIES INJ 11/16/2023 Social History Tobacco Use Smoking status: Never Smokeless tobacco: Never Vaping Use Vaping status: Never Used FAMILY HISTORY Problem Relation Age of Onset Seizures Maternal Grandmother Heart Unknown maternal and paternal side Hypertension Unknown maternal great mother Cancer Unknown brain cancer- maternal great aunt other (hearing problems [Other]) Unknown maternal grandmother ALLERGIES No Known Allergies Current Outpatient Medications Medication Sig atomoxetine (STRATTERA) 40 mg capsule Take 40 mg by mouth once daily. metoprolol succinate ER (TOPROL XL) 25 mg 24 hr tablet take 1 tablet by mouth every day (Patient taking differently: Take 50 mg by mouth once daily.) L-norgest/e.estradiol- e.estrad (JAIMIESS ORAL) mecobalamin, vitamin B12, (B12 ACTIVE) 1,000 mcg chew omeprazole (PRILOSEC) 20 mg capsule Takes 40mg before breakfast and 20mg before dinner Fluticasone Furoate (FLONASE SENSIMIST) 27.5 mcg/actuation nasal spray Use 1 Morley in each nostril two times a day. ketotifen fumarate (ZADITOR) 0.025 % (0.035 %) ophthalmic solution Use 1 Drop in both eyes two times a day as needed. cetirizine (ZYRTEC) 10 mg tablet Take 1 tablet by mouth once daily. omeprazole (PRILOSEC) 40 mg capsule No current facility-administered medications for this visit. REVIEW OF SYSTEMS PAIN ASSESSMENT: Negative for pain, history of chronic pain, or current treatment for a chronic pain condition. GENERAL: No weight loss, malaise or fevers NECK: Negative for lumps, goiter, pain and significant neck swelling RESPIRATORY: Negative for cough, hemoptysis, wheezing, COPD, dyspnea or shortness of breath CARDIOVASCULAR: Negative for chest pain, leg swelling, hypertension, CHF or palpitations GI: See HPI : No history of dysuria, frequency or incontinence MUSCULOSKELETAL: Negative for joint pain or swelling, back pain or muscle pain HEMATOLOGY/LYMPHOLOGY: Negative for prolonged bleeding, bruising easily or swollen nodes ENDOCRINE: Negative for cold or heat intolerance, polyuria, polydipsia and goiter PHYSICAL EXAM: BP 131/77 Pulse 72 Resp 18 Ht 5' 2 (1.58m) Wt 226 lb (102.5kg) BMI 41.33 kg/(m2). General Appearance: Well appearing, alert, in no acute distress, well-hydrated, well nourished. and Obese. Abdomen: Normal abdominal exam, Abdomen soft, non-tender. Bowel sounds normal. No masses, organomegaly, Positive findings: obese. Assessment: Gastroesophageal reflux disease, unspecified whether esophagitis present (primary encounter diagnosis) Regurgitation of food Class 3 severe obesity due to excess calories without serious comorbidity with body mass index (bmi) of 40.0 to 44.9 in adult ([facility]) Plan: ASSESSMENT/PLAN: 1. Gastroesophageal reflux disease, unspecified whether esophagitis present - ICD9: 530.81, ICD10: K21.9 (primary diagnosis) -We Argun to proceed with an EGD, Smalls pH probe placement and manometry. The risks, benefits and complications were reviewed including but not limited to bleeding, infection, missing a lesion, effects of anesthesia and perforation possibly requiring an emergency surgery. Patient understood and was agreeable to proceed. - MANOMETRY ESOPHAGEAL FUNCTION W/IMPEDANCE 2. Regurgitation of food - ICD9: 787.03, ICD10: R11.10 Workup as above 3. Class 3 severe obesity due to excess calories without serious comorbidity with body mass index (BMI) of 40.0 to 44.9 in adult (HCC) - ICD9: 278.01, V85.41, ICD10: E66.813, E66.01, Z68.41 Stable Medical Decision Making: Problems: Moderate: New problem with uncertain prognosis Data: Unique test(s) ordered: 3+ Risk: Low: Low risk fr (more content not included)... Normal [facility] CNOVon 12-31-2023 CNOV Office Visit (GENSWS ) ACE LEONARDO ([id number]) 2 F Date Time Provider Department 12/31/23 2:30 PM ARIEL GUO During your visit today, we recorded the following information about you: Ariel Guo MD 01/03/2024 1:41 PM Signed Subjective: Patient is status post an upper endoscopy from November 16, 2023. Pathology report: FINAL DIAGNOSIS A. Small bowel, duodenum, biopsy: - Duodenal mucosa within normal limits. B. Stomach, antrum, biopsy: - Antral mucosa within normal limits. - No morphologic evidence of Helicobacter. C. Esophagus, distal, biopsy: - Squamous mucosa with mild reactive changes. D. Esophagus, mid, biopsy: - Squamous mucosa within normal limits. Patient is still having symptoms despite on maximal p.o. therapy Objective:There were no vitals taken for this visit. Abdomen is soft and nontender Assessment:Gastroesoph ageal reflux disease, unspecified whether esophagitis present (primary encounter diagnosis) Plan: I am going to obtain an esophageal manometry study and a 48-hour pH probe I will see her back once these are done. Allergies As of Date: 12/31/2023 (No Known Allergies) Date Reviewed: 12/31/2023 Reviewed by: Cassandra Nicholson RN - Fully Assessed Reason for Visit: Follow Up [171] Cmt: EGD Primary Visit Diagnosis:Gastroesopha geal reflux disease, unspecified whether esophagitis present [K21.9] Order(s):MANOMETRY ESOPHAGEAL [82839HEI] Order #: [id number] FUTURE PH INSERT OFF MEDS [[id number]] Order #: [id number] FUTURE Prescriptions as of 01/03/2024 - metoprolol succinate ER (TOPROL XL) 25 mg 24 hr tablet take 1 tablet by mouth every day - L-norgest/e.estradiol- e.estrad (JAIMIESS ORAL) - mecobalamin, vitamin B12, (B12 ACTIVE) 1,000 mcg chew - omeprazole (PRILOSEC) 40 mg capsule - omeprazole (PRILOSEC) 20 mg capsule Takes 40mg before breakfast and 20mg before dinner - Fluticasone Furoate (FLONASE SENSIMIST) 27.5 mcg/actuation nasal spray Use 1 Morley in each nostril two times a day. - ketotifen fumarate (ZADITOR) 0.025 % (0.035 %) ophthalmic solution Use 1 Drop in both eyes two times a day as needed. - cetirizine (ZYRTEC) 10 mg tablet Take 1 tablet by mouth once daily. - FLUoxetine (PROZAC) 40 mg capsule Take 40 mg by mouth once daily. Problem List As Of Date 12/31/2023 Noted Resolved Gastroesophageal reflux disease [K21.9] 09/12/2022 Dizziness [R42] 07/03/2022 Headache [R51] 10/04/2022 Follow-up and Disposition History for Encounter Date Provider Department Center 12/31/2023 [id number] GUO [facility] Encounter Status:[facility] [place] [facility] (JULIOCESAR) ACE LEONARDO ([id number]) 2 F Date Time Provider Department 12/31/23 ARIEL GOU During your visit today, we recorded the following information about you: Keren Martinez 12/31/2023 3:[address] Guo patient to have esophageal manometry AND a 48 hr PH probe. Email sent to Remigio Villar to have their office review and call patient. Patient aware their office will call to schedule. Patient then to follow back up with [facility]'s office after appointments are done Keren Martinez Ferris Wheel Operator Keren Martinez 01/07/2024 8:00 AM Signed Remigio Villar Breanna Hi Bre, I have Ace scheduled for an appt w/Dr. Boone on 01/30/24 AND her testing on 02/06/24. She will follow up with you. Cara Allergies As of Date: 12/31/2023 (No Known Allergies) Date Reviewed: 12/31/2023 Reviewed by: Cassandra Nicholson, RN - Fully Assessed Reason for Visit: Patient Update [1234] Prescriptions as of 01/07/2024 - metoprolol succinate ER (TOPROL XL) 25 mg 24 hr tablet take 1 tablet by mouth every day - L-norgest/e.estradiol- e.estrad (JAIMIESS ORAL) - mecobalamin, vitamin B12, (B12 ACTIVE) 1,000 mcg chew - omeprazole (PRILOSEC) 40 mg capsule - omeprazole (PRILOSEC) 20 mg capsule Takes 40mg before breakfast and 20mg before dinner - Fluticasone Furoate (FLONASE SENSIMIST) 27.5 mcg/actuation nasal spray Use 1 Morley in each nostril two times a day. - ketotifen fumarate (ZADITOR) 0.025 % (0.035 %) ophthalmic solution Use 1 Drop in both eyes two times a day as needed. - cetirizine (ZYRTEC) 10 mg tablet Take 1 tablet by mouth once daily. - FLUoxetine (PROZAC) 40 mg capsule Take 40 mg by mouth once daily. Problem List As Of Date 12/31/2023 Noted Resolved Gastroesophageal reflux disease [K21.9] 09/12/2022 Dizziness [R42] 07/03/2022 Headache [R51] 10/04/2022 Encounter Status:Closed by KEREN MARTINEZ on 12/31/23 Normal [facility] CNPPeace 11-19-2023 CNPN Telephone (GENSWS) ACE LEONARDO ([id number]) 2 F Date Time Provider Department 11/19/23 ARIEL GUO GENSWS During your visit today, we recorded the following information about you: Ivis Richter LPN 11/19/2023 10:38 AM Signed Patient calling and reports she has had constant aching pain in her lower abdomen since EGD. Occasionally sharp depending on activity and had signifcant nausea over the weekend. She was evaluated at [facility] ER and given medication for nausea and discharged to home. She is wondering if there is anything she should be doing for pain? Denies emesis or cough/hemoptysis. Reports the pain interferes with sleep. She would like a work excuse for today if possible. Patient can be reached at [phone] RAUL Parker Billie, RN 11/19/2023 5:02 PM Signed Contacted Ace with the Recommendations below. She stated the pain was the same as it was in the ED. I recommended if the pain gets worse, or doesn't go away to be reevaluated in the ED. She voiced understanding and had no further questions.Cassandra Nicholson RN Allergies As of Date: 11/19/2023 (No Known Allergies) Date Reviewed: 11/16/2023 Reviewed by: Anastasiia Zapata RN - Fully Assessed Reason for Visit: Patient Update [1234] Prescriptions as of 11/30/2023 - L-norgest/e.estradiol- e.estrad (JAIMIESS ORAL) - mecobalamin, vitamin B12, (B12 ACTIVE) 1,000 mcg chew - omeprazole (PRILOSEC) 40 mg capsule - omeprazole (PRILOSEC) 20 mg capsule Takes 40mg before breakfast and 20mg before dinner - Fluticasone Furoate (FLONASE SENSIMIST) 27.5 mcg/actuation nasal spray Use 1 Morley in each nostril two times a day. - ketotifen fumarate (ZADITOR) 0.025 % (0.035 %) ophthalmic solution Use 1 Drop in both eyes two times a day as needed. - metoprolol succinate ER (TOPROL XL) 25 mg 24 hr tablet Take 1 tablet by mouth once daily. - cetirizine (ZYRTEC) 10 mg tablet Take 1 tablet by mouth once daily. - FLUoxetine (PROZAC) 40 mg capsule Take 40 mg by mouth once daily. Problem List As Of Date 11/19/2023 Noted Resolved Gastroesophageal reflux disease [K21.9] 09/12/2022 Dizziness [R42] 07/03/2022 Headache [R51] 10/04/2022 Encounter Status:Closed by IVIS RICHTER on 11/30/23 [facility] CNOVcarleen 11-18-2023 CNOV Office Visit (UCTR ) ACE LEONARDO ([id number]) 2 F Date Time Provider Department 11/18/23 10:15 AM JEROME ALLEN [facility] During your visit today, we recorded the following information about you: Jerome Allen APRN.CNP 11/18/2023 10:18 AM Signed Nontoxic-appearing female presents urgent care chief complaint esophageal and abdominal pain. Duration of symptoms yesterday. Associated symptoms listed above. Patient states on November 15 she had a EGD. States pain was so severe last night it kept her up. Patient rates pain 7-8 out of 10. EGD was performed in the mid [facility] ED. Recommended patient return to [facility] emergency room. Patient states she will be seen at [facility]. Verbalized understanding agrees with plan of care. Jerome Allen APRN.MICROSOFT ARCHITECT Allergies As of Date: 11/18/2023 (No Known Allergies) Date Reviewed: 11/16/2023 Reviewed by: Anastasiia Zapata RN - Fully Assessed Primary Visit Diagnosis:Procedure not carried out [Z53.9] Prescriptions as of 11/18/2023 - L-norgest/e.estradiol- e.estrad (JAIMIESS ORAL) - mecobalamin, vitamin B12, (B12 ACTIVE) 1,000 mcg chew - omeprazole (PRILOSEC) 40 mg capsule - omeprazole (PRILOSEC) 20 mg capsule Takes 40mg before breakfast and 20mg before dinner - Fluticasone Furoate (FLONASE SENSIMIST) 27.5 mcg/actuation nasal spray Use 1 Morley in each nostril two times a day. - ketotifen fumarate (ZADITOR) 0.025 % (0.035 %) ophthalmic solution Use 1 Drop in both eyes two times a day as needed. - metoprolol succinate ER (TOPROL XL) 25 mg 24 hr tablet Take 1 tablet by mouth once daily. - cetirizine (ZYRTEC) 10 mg tablet Take 1 tablet by mouth once daily. - FLUoxetine (PROZAC) 40 mg capsule Take 40 mg by mouth once daily. Problem List As Of Date 11/18/2023 Noted Resolved Gastroesophageal reflux disease [K21.9] 09/12/2022 Dizziness [R42] 07/03/2022 Headache [R51] 10/04/2022 Encounter Status:Closed by JEROME ALLEN on 11/18/23 [facility] ANES POSTPROC EVALon 024 ANES POSTPROC EVAL HNO ID: [id number] Author: JIMBO JENNINGS MD Service: Anesthesiology Author Type: Anesthesiologist Type: Anesthesia Postprocedure Evaluation Filed: 11/16/2023 12:37 Note Text: POST ANESTHESIA EVALUATION NOTE : 2000 Procedure Summary Date: 11/16/23 Room / Location: [facility] Anesthesia Start: 1202 Anesthesia Stop: 1217 Procedure: EGD DIAGNOSTIC Diagnosis: Gastroesophageal reflux disease, unspecified whether esophagitis present (Heartburn) Scheduled Providers: Ariel Guo MD; Tony Zhou APRN.CRNA; Jimbo Jennings MD Responsible Provider: Jimbo Jennings MD Anesthesia Type: MAC ASA Status: 1 Anesthesia Type: MAC Last Vitals Vitals Value Taken Time BP 105/68 11/16/23 1231 Temp 36.9 ?C (98.4 ?F) 11/16/23 1219 Pulse 61 11/16/23 1235 Resp 23 11/16/23 1235 SpO2 99 % 11/16/23 1235 Vitals shown include unfiled device data. Post Anesthesia Patient Status Patient Evaluation: bedside. Anticipated Disposition: phase 2 then home. Neurological Status: aware and responsive. Pulmonary Status: breathing comfortably on room air Airway Control: returned to baseline unsupported. Cardiovascular Status: stable. Pain Management: clinically adequate Postoperative Hydration: acceptable. Intraoperative Events: no significant anesthesia events Post Operative Nausea/Vomiting Status: no significant post operative nausea or vomiting Recommendation: continue current plan of care. Anesthesia Observations No Documentation SIGNATURE: Jimbo Jennings MD PATIENT NAME: Ace Leonardo DATE: November 16, 2023 TIME: 12:37 PM CSN: [id number] Normal [facility] ANES PRE-OPon 11-16-2023 ANES PRE-OP HNO ID: [id number] Author: JIMBO JENNINGS MD Service: Anesthesiology Author Type: Anesthesiologist Type: Anesthesia Preprocedure Evaluation Filed: 11/16/2023 11:32 Note Text: ANESTHESIOLOGY DAY OF SURGERY NOTE : 2000 Procedure Information Date/Time: 11/16/23 1415 Scheduled providers: Ariel Guo MD; Tony Zhou APRN.CAFETERIA FOOD SERVER; Jimbo Jennings MD Procedure: EGD DIAGNOSTIC Location: [facility] Estimated body mass index is 35.7 kg/m? as calculated from the following: Height as of 12/07/22: 167.2 cm (5' 5.83 ). Weight as of 09/21/23: 99.8 kg (220 lb). Most recent hematocrit and potassium results: Hematocrit 41.6 01/09/2023 Potassium 4.6 01/09/2023 Relevant Problems GI (+) Gastroesophageal reflux disease NEURO-PSYCH (+) Headache I - PHYSICAL EVALUATION AIRWAY Patient intubated: No. Tracheostomy tube not present Mallampati: II. TM distance: >3 FB. Neck ROM: full ROM without neurological symptoms. Mouth opening: adequate. Short neck: no. Thick neck: no Microretrognathia/Micr onagthia/Recessed Chin: No DENTAL Dental findings: teeth intact. Additional exam findings: yes. CARDIOVASCULAR Rhythm: regular Rate: normal PULMONARY Breath sounds clear to auscultation. II - ANESTHESIA PLAN ASA Score: 1 Anesthetic Plan: MAC NPO Status: adequate Beta Reymundo Administration of chronic beta reymundo medication not planned. Monitoring Plan Monitoring plan: standard ASA. Post Procedure Analgesic Plan Informed Consent Anesthetic risks, benefits, alternatives, personnel and consent discussed: yes. Patient / Responsible Alliance Party agrees to proceed: yes Patient / Surrogate agrees to blood products: blood products not planned DNR status not reviewed with patient and/or family prior to surgery. Significant changes in the patient condition since the History and Physical, not otherwise documented in primary service progress note: no. Potential Anesthesia issues that may suggest increased risk of complications or contraindication to planned procedure: none. No vitals data found for the desired time range. Outpatient Medications as of 11/16/2023 Medication Sig L-norgest/e.estradiol- e.estrad (JAIMIESS ORAL) mecobalamin, vitamin B12, (B12 ACTIVE) 1,000 mcg chew omeprazole (PRILOSEC) 40 mg capsule omeprazole (PRILOSEC) 20 mg capsule Takes 40mg before breakfast and 20mg before dinner Fluticasone Furoate (FLONASE SENSIMIST) 27.5 mcg/actuation nasal spray Use 1 Morley in each nostril two times a day. ketotifen fumarate (ZADITOR) 0.025 % (0.035 %) ophthalmic solution Use 1 Drop in both eyes two times a day as needed. metoprolol succinate ER (TOPROL XL) 25 mg 24 hr tablet Take 1 tablet by mouth once daily. cetirizine (ZYRTEC) 10 mg tablet Take 1 tablet by mouth once daily. FLUoxetine (PROZAC) 40 mg capsule Take 40 mg by mouth once daily. No current facility-administered medications on file as of 11/16/2023. I have interviewed and examined the patient. I have reviewed the medical record and/or the pre-anesthesia evaluation, pertinent labs, and test results. This contains updated information obtained within 48 hours of Surgery/Procedure. SIGNATURE: Jimbo Jennings MD PATIENT NAME: Ace Leonardo DATE: November 16, 2023 TIME: 11:31 AM CSN: [id number] Normal [facility] EGD Study observation Brock harris 11-16-2023 [facility] Patient Name: Ace Leonardo Procedure Date: 11/16/2023 11:54 AM Date of : 2000 Admit Type: Outpatient Age: 23 Room: [facility] Gender: Female Note Status: Finalized Attending MD: Ariel Guo MD, [id number] Procedure: Upper GI endoscopy Indications: Heartburn, Gastro-esophageal reflux disease Providers: Ariel Guo MD Patient Profile: This is a 23 year old female. Refer to note in patient chart for documentation of history and physical. Referring Physician: Monse Chapin (Referring MD) Medicines: See the Anesthesia note for documentation of the administered medications Complications: No immediate complications. Estimated blood loss: Minimal. Requesting Provider: Procedure: Pre-Anesthesia Assessment: - Prior to the procedure, a History and Physical was performed, and patient medications and allergies were reviewed. The patient's tolerance of previous anesthesia was also reviewed. The risks and benefits of the procedure and the sedation options and risks were discussed with the patient. All questions were answered, and informed consent was obtained. Prior Anticoagulants: The patient has taken no anticoagulant or antiplatelet agents. ASA Grade Assessment: II - A patient with mild systemic disease. After reviewing the risks and benefits, the patient was deemed in satisfactory condition to undergo the procedure. After obtaining informed consent, the endoscope was passed under direct vision. Throughout the procedure, the patient's blood pressure, pulse, and oxygen saturations were monitored continuously. The was introduced through the mouth, and advanced to the second part of duodenum. The upper GI endoscopy was accomplished without difficulty. The patient tolerated the procedure well. Moderate Sedation: The following parameters were monitored: oxygen saturation, heart rate, blood pressure, respiratory rate, EKG, adequacy of pulmonary ventilation, and response to care. MAC anesthesia was administered by the anesthesia team. Total Procedure Duration: 0 hours 4 minutes 0 seconds Findings: The Z-line was regular and was found 37 cm from the incisors. Biopsies were taken with a cold forceps for histology. The entire examined stomach was normal. Biopsies were taken with a cold forceps for Helicobacter pylori testing. The examined duodenum was normal. Biopsies for histology were taken with a cold forceps for evaluation of celiac disease. Impression: - Z-line regular, 37 cm from the incisors. Biopsied. - Normal stomach. Biopsied. - Normal examined duodenum. Biopsied. Recommendation: - Patient has a contact number available for emergencies. The signs and symptoms of potential delayed complications were discussed with the patient. Return to normal activities tomorrow. Written discharge instructions were provided to the patient. - Resume previous diet. - Continue present medications. - Await pathology results. - Repeat upper endoscopy PRN for surveillance. - Return to nurse practitioner at appointment to be scheduled. Procedure Code(s): --- Professional --- 56819, Esophagogastroduodenos copy, flexible, transoral; with biopsy, single or multiple Diagnosis Code(s): --- Professional --- R12, Heartburn K21.9, Gastro-esophageal reflux disease without esophagitis CPT copyright 2020 [employer]. All rights reserved. The codes documented in this report are preliminary and upon beading installer review may be revised to meet current compliance requirements. Attending Participation: I personally performed the entire procedure. Scope In: 12:10:16 PM Scope Out: 12:14:16 PM MD Ariel Tyler MD 11/16/2023 12:17:28 PM This report has been signed electronically by Da (more content not included)... [facility] Radiology Study observation (narrative) [facility] HISTORY PHYSICALon HISTORY PHYSICAL HNO ID: [id number] Author: ARIEL GUO MD Service: General Surgery Author Type: Physician Type: H&P Filed: 11/16/2023 11:07 Note Text: HISTORY AND PHYSICAL Ace Leonardo : 2000 REFERRING PHYSICIAN: SELF CHIEF COMPLAINT: Patient presents with: New Patient: EGD consult HPI: Ace is a 22 year old female referred for endoscopy. Ace notes regurgitation since I was young - before high school. Ace states that 20 minutes after she eats she will have food regurg that she just swallows. She states she thought this was normal since it has happened for so long. She denies burning or pain, or blood. She states that if a pill is dry on occasion it feels like it gets stuck but denies dysphagia with food or liquids. She has been taking Prilosec 40mg in the AM and 20mg with dinner with minimal relief. Ace refers that she does not eat spicy foods and drinks plenty of water throughout the day d/t her hot work environment and history of POTS. Ace refers family history- Paternal grandfather had esophageal cancer and the majority of her father's side relatives suffer from reflux. Ace had a gastric emptying study done at [facility] on May that was normal. Patient denies any change in bowel habits, weight changes, blood in stools, black tarry stools or abdominal pain. Ace has not undergone prior endoscopy. CURRENT MEDICATIONS Current Outpatient Medications Medication Sig L-norgest/e.estradiol- e.estrad (JAIMIESS ORAL) mecobalamin, vitamin B12, (B12 ACTIVE) 1,000 mcg chew omeprazole (PRILOSEC) 40 mg capsule omeprazole (PRILOSEC) 20 mg capsule Takes 40mg before breakfast and 20mg before dinner Fluticasone Furoate (FLONASE SENSIMIST) 27.5 mcg/actuation nasal spray Use 1 Morley in each nostril two times a day. ketotifen fumarate (ZADITOR) 0.025 % (0.035 %) ophthalmic solution Use 1 Drop in both eyes two times a day as needed. metoprolol succinate ER (TOPROL XL) 25 mg 24 hr tablet Take 1 tablet by mouth once daily. cetirizine (ZYRTEC) 10 mg tablet Take 1 tablet by mouth once daily. FLUoxetine (PROZAC) 40 mg capsule Take 40 mg by mouth once daily. No current facility-administered medications for this visit. ALLERGIES: Patient has no known allergies. PAST MEDICAL HISTORY No past medical history on file. PAST SURGICAL HISTORY No past surgical history on file. FAMILY HISTORY FAMILY HISTORY Problem Relation Age of Onset Seizures Maternal Grandmother Heart Unknown maternal and paternal side Hypertension Unknown maternal great mother Cancer Unknown brain cancer- maternal great aunt other (hearing problems [Other]) Unknown maternal grandmother SOCIAL HISTORY Social History Tobacco Use Smoking status: Never Smokeless tobacco: Never Vaping Use Vaping Use: Never used REVIEW OF SYMPTOMS: The review of systems data was entered by the nurse and reviewed by me Nursing Notes: Ivis Richter LPN 09/21/2023 8:37 AM Signed REVIEW OF SYSTEMS: General: The patient notes fatigue, denies weight loss, notes weight gain, denies feeling hot, and denies feelings of cold. Eyes: The patient denies glaucoma, denies eye injury/surgery, wears glasses or contacts. Ear/Nose/Throat: The patient denies allergies, denies hayfever, denies ear infections, and notes bloody noses. Cardiovascular: The patient denies chest pain, denies heart disease, denies high blood pressure,denies cardiac stent, denies prior heart attack, notes irregular heart beat, denies high cholesterol, denies poor circulation, denies heart failure, other cardiac issues, denies claudication, denies cold feet, denies peripheral arterial stent. Respiratory: The patient denies tuberculosis, denies pneumonia, denies frequent cough, denies pulmonary embolism, denies shortness of breath, and denies coughing up blood. Gastrointestinal: The patient denies difficulty swallowing, notes acid reflux, denies ulcers, denies vomiting, denies jaundice/hepatitis, denies gallbladder problems, denies black or tarry stools, denies hemorrhoids, denies bleeding from rectum, denies diverticulitis, notes constipation, notes diarrhea, denies loss of stool control, and denies hernias. Kidney/Bladder: The patient denies kidney stones, denies urine infections, and denies bloody urine. Skin: The patient denies a history of skin cancer, denies bleeding/changing moles, and notes a history of skin rash. Neurologic: The patient denies a history of epilepsy/convulsions, notes headaches, denies head/spinal injuries, and denies stroke/TIA. Psychiatric: The patient denies psychiatric medications, notes depression, and denies voices, denies substance abuse. Endocrine: The patient notes thyroid disorders, denies diabetes, and denies hormonal problems. Hematologic: The patient denies a history of bruising, denies bleeding, and notes anemia, denies blood clots. Infections: The patient denies a history (more content not included)... Normal [facility] SURGICAL PATHOLOGYon 024 CASE REPORT Normal [facility] Comment on above: Order Comment: Jonnathan jones Type: TISSUE SPECIMEN Ordering Facility: [facility] Address: [address] [place] [address] Result Comment: Surg ical Pathology Report Case: [id number] Authorizing Provider: Ariel Guo MD Collected: 11/16/2023 12:11 PM Ordering Location: [facility] Received: 11/16/2023 01:53 PM Pathologist: Gabe Pastrana MD Specimens: A) - Small Bowel, Duodenum, Biopsy B) - Stomach, Antrum, Biopsy C) - Esophagus, Distal, Biopsy D) - Esophagus, Mid, Biopsy Performed By: #### S #### [facility] CLIA [id number] [address] [place] [address] STATES OF [facility] DIAGNOSIS COMMENT C, D. No increase in intraepithelial eosinophils identified. [facility] Comment on above: Order Comment: Jonnathan jones Type: TISSUE SPECIMEN Ordering Facility: [facility] Address: [address] [place] [address] Performed By: #### S #### [facility] CLIA [id number] [address] [place] [address] FINAL DIAGNOSIS [facility] Comment on above: Order Comment: Jonnathan jones Type: TISSUE SPECIMEN Ordering Facility: [facility] Address: [address] [place] [address] Result Comment: A. S mall bowel, duodenum, biopsy: - Duodenal mucosa within normal limits. B. Stomach, antrum, biopsy: - Antral mucosa within normal limits. - No morphologic evidence of Helicobacter. C. Esophagus, distal, biopsy: - Squamous mucosa with mild reactive changes. D. Esophagus, mid, biopsy: - Squamous mucosa within normal limits. PB/alida 11/22/2023 Performed By: #### S #### [facility] CLIA [id number] [address] [place] [address] [place] FINAL PERFORMING LAB Normal [facility] Comment on above: Order Comment: Speci men Type: TISSUE SPECIMEN Ordering Facility: [facility] Address: [address] [place] [address] Result Comment: Diag nostic interpretation performed at [facility], [address] [place] [address] CLIA# [id number] Monument Stonecutter: Mario Glez M.D. Performed By: #### S #### [facility] CLIA [id number] [address] [place] [address] [place] GROSS DESCRIPTION Normal [facility] Comment on above: Order Comment: Speci men Type: TISSUE SPECIMEN Ordering Facility: [facility] Address: [address] [place] [address] Result Comment: A. S mall Bowel, Duodenum, Biopsy Received in formalin is one piece of pascual, soft tissue measuring 0.4 x 0.3 x 0.3 cm. Totally submitted in one cassette. B. Stomach, Antrum, Biopsy Received in formalin is one piece of pascual, soft tissue measuring 0.6 x 0.2 x 0.1 cm. Totally submitted in one cassette. C. Esophagus, Distal, Biopsy Received in formalin are two pieces of pascual, soft tissue aggregating to 0.6 x 0.3 x 0.1 cm. Totally submitted in one cassette. D. Esophagus, Mid, Biopsy Received in formalin is one piece of pascual, soft tissue measuring 0.2 x 0.2 x 0.2 cm. Totally submitted in one cassette. JCDM November 16, 2023 8:07 PM Gross examination performed at [facility], [address] [place] [address] Performed By: #### S #### [facility] CLIA [id number] [address] [place] [address] [place] Upper GI endoscopyon 11-15- 024 Upper GI endoscopy [facility] Patient Name: Ace Leonardo Procedure Date: 11/16/2023 11:54 AM Date of : 2000 Admit Type: Outpatient Age: 23 Room: [facility] Gender: Female Note Status: Finalized Attending MD: Ariel Guo MD, [id number] Procedure: Upper GI endoscopy Indications: Heartburn, Gastro-esophageal reflux disease Providers: Ariel Guo MD Patient Profile: This is a 23 year old female. Refer to note in patient chart for documentation of history and physical. Referring Physician: Monse Chapin (Referring MD) Medicines: See the Anesthesia note for documentation of the administered medications Complications: No immediate complications. Estimated blood loss: Minimal. Requesting Provider: Procedure: Pre-Anesthesia Assessment: - Prior to the procedure, a History and Physical was performed, and patient medications and allergies were reviewed. The patient's tolerance of previous anesthesia was also reviewed. The risks and benefits of the procedure and the sedation options and risks were discussed with the patient. All questions were answered, and informed consent was obtained. Prior Anticoagulants: The patient has taken no anticoagulant or antiplatelet agents. ASA Grade Assessment: II - A patient with mild systemic disease. After reviewing the risks and benefits, the patient was deemed in satisfactory condition to undergo the procedure. After obtaining informed consent, the endoscope was passed under direct vision. Throughout the procedure, the patient's blood pressure, pulse, and oxygen saturations were monitored continuously. The was introduced through the mouth, and advanced to the second part of duodenum. The upper GI endoscopy was accomplished without difficulty. The patient tolerated the procedure well. Moderate Sedation: The following parameters were monitored: oxygen saturation, heart rate, blood pressure, respiratory rate, EKG, adequacy of pulmonary ventilation, and response to care. MAC anesthesia was administered by the anesthesia team. Total Procedure Duration: 0 hours 4 minutes 0 seconds Findings: The Z-line was regular and was found 37 cm from the incisors. Biopsies were taken with a cold forceps for histology. The entire examined stomach was normal. Biopsies were taken with a cold forceps for Helicobacter pylori testing. The examined duodenum was normal. Biopsies for histology were taken with a cold forceps for evaluation of celiac disease. Impression: - Z-line regular, 37 cm from the incisors. Biopsied. - Normal stomach. Biopsied. - Normal examined duodenum. Biopsied. Recommendation: - Patient has a contact number available for emergencies. The signs and symptoms of potential delayed complications were discussed with the patient. Return to normal activities tomorrow. Written discharge instructions were provided to the patient. - Resume previous diet. - Continue present medications. - Await pathology results. - Repeat upper endoscopy PRN for surveillance. - Return to nurse practitioner at appointment to be scheduled. Procedure Code(s): --- Professional --- 14261, Esophagogastroduodenos copy, flexible, transoral; with biopsy, single or multiple Diagnosis Code(s): --- Professional --- R12, Heartburn K21.9, Gastro-esophageal reflux disease without esophagitis CPT copyright 2020 [employer]. All rights reserved. The codes documented in this report are preliminary and upon beading installer review may be revised to meet current compliance requirements. Attending Participation: I personally performed the entire procedure. Scope In: 12:10:16 PM Scope Out: 12:14:16 PM MD Ariel Tyler MD 11/16/2023 12:17:28 PM This report has been signed electronically by Ariel Guo MD Number of Addenda: 0 Note Initiated On: 11/16/2023 11:54 AM Estimated Blood Loss: Estimated blood loss was minimal. [facility] Office Visit (GENSWS ) ACE LEONARDO ([id number]) 2 F Date Time Provider Department 09/21/23 8:00 AM ARIEL GUO During your visit today, we recorded the following information about you: Weight 99.8 kg Ivis Richter LPN 09/21/2023 8:37 AM Signed REVIEW OF SYSTEMS: General: The patient notes fatigue, denies weight loss, notes weight gain, denies feeling hot, and denies feelings of cold. Eyes: The patient denies glaucoma, denies eye injury/surgery, wears glasses or contacts. Ear/Nose/Throat: The patient denies allergies, denies hayfever, denies ear infections, and notes bloody noses. Cardiovascular: The patient denies chest pain, denies heart disease, denies high blood pressure,denies cardiac stent, denies prior heart attack, notes irregular heart beat, denies high cholesterol, denies poor circulation, denies heart failure, other cardiac issues, denies claudication, denies cold feet, denies peripheral arterial stent. Respiratory: The patient denies tuberculosis, denies pneumonia, denies frequent cough, denies pulmonary embolism, denies shortness of breath, and denies coughing up blood. Gastrointestinal: The patient denies difficulty swallowing, notes acid reflux, denies ulcers, denies vomiting, denies jaundice/hepatitis, denies gallbladder problems, denies black or tarry stools, denies hemorrhoids, denies bleeding from rectum, denies diverticulitis, notes constipation, notes diarrhea, denies loss of stool control, and denies hernias. Kidney/Bladder: The patient denies kidney stones, denies urine infections, and denies bloody urine. Skin: The patient denies a history of skin cancer, denies bleeding/changing moles, and notes a history of skin rash. Neurologic: The patient denies a history of epilepsy/convulsions, notes headaches, denies head/spinal injuries, and denies stroke/TIA. Psychiatric: The patient denies psychiatric medications, notes depression, and denies voices, denies substance abuse. Endocrine: The patient notes thyroid disorders, denies diabetes, and denies hormonal problems. Hematologic: The patient denies a history of bruising, denies bleeding, and notes anemia, denies blood clots. Infections: The patient denies a history of measles and mumps, denies rheumatic fever, and denies sexually transmitted diseases. Musculoskeletal: The patient notes back pain/injury, denies back problems, denies sciatica, denies knee/foot trouble, denies arthritis, or denies gout. When was patient's last Mammogram screening? N/A Last Colonoscopy: N/A RAUL Parker Kimberley, ALEX.MICROSOFT ARCHITECT 09/21/2023 8:55 AM Signed HISTORY AND PHYSICAL Ace Leonardo : 2000 REFERRING PHYSICIAN: SELF CHIEF COMPLAINT: Patient presents with: New Patient: EGD consult HPI: Ace is a 22 year old female referred for endoscopy. Ace notes regurgitation since I was young - before high school. Ace states that 20 minutes after she eats she will have food regurg that she just swallows. She states she thought this was normal since it has happened for so long. She denies burning or pain, or blood. She states that if a pill is dry on occasion it feels like it gets stuck but denies dysphagia with food or liquids. She has been taking Prilosec 40mg in the AM and 20mg with dinner with minimal relief. Ace refers that she does not eat spicy foods and drinks plenty of water throughout the day d/t her hot work environment and history of POTS. Ace refers family history- Paternal grandfather had esophageal cancer and the majority of her father's side relatives suffer from reflux. Ace had a gastric emptying study done at [facility] on May that was normal. Patient denies any change in bowel habits, weight changes, blood in stools, black tarry stools or abdominal pain. Ace has not undergone prior endoscopy. Current Outpatient Medications Medication Sig L-norgest/e.estradiol- e.estrad (JAIMIESS ORAL) mecobalamin, vitamin B12, (B12 ACTIVE) 1,000 mcg chew omeprazole (PRILOSEC) 40 mg capsule omeprazole (PRILOSEC) 20 mg capsule Takes 40mg before breakfast and 20mg before dinner Fluticasone Furoate (FLONASE SENSIMIST) 27.5 mcg/actuation nasal spray Use 1 Morley in each nostril two times a day. ketotifen fumarate (ZADITOR) 0.025 % (0.035 %) ophthalmic solution Use 1 Drop in both eyes two times a day as needed. metoprolol succinate ER (TOPROL XL) 25 mg 24 hr tablet Take 1 tablet by mouth once daily. cetirizine (ZYRTEC) 10 mg tablet Take 1 tablet by mouth once daily. FLUoxetine (PROZAC) 40 mg capsule Take 40 mg by mouth once daily. No current facility-administered medications for this visit. ALLERGIES: Patient has no known allergies. No past medical history on file. No past surgical history on file. FAMILY HISTORY Problem Relation Age of Onset Seizures Mater (more content not included)... [facility] (RONI[facility] ACE LEONARDO ([id number]) 2 F Date Time Provider Department 09/13/23 ARIEL GUO During your visit today, we recorded the following information about you: Alicja Mas MA 09/13/2023 1:47 PM Signed Prashanth from Dr. Lino's office at [facility] calling and asking for update on appointment with Dr. Guo. I didn't see anything scheduled. Prashanth will fax referral again. Ella Ray LPN 09/13/2023 3:38 PM Signed No appointment or referral for this patient. Ella Ray LPN September 13, 2023 3:38 PM Ella Ray LPN 09/13/2023 3:43 PM Signed Referral received, given to pss computer processing scheduler to reach out to patient for an appointment. Ella Ray LPN September 13, 2023 3:43 PM Allergies As of Date: 09/13/2023 (No Known Allergies) Date Reviewed: 09/05/2023 Reviewed by: Hemalatha Anthony PA-C - Fully Assessed Prescriptions as of 09/13/2023 - L-norgest/e.estradiol- e.estrad (JAIMIESS ORAL) - mecobalamin, vitamin B12, (B12 ACTIVE) 1,000 mcg chew - omeprazole (PRILOSEC) 40 mg capsule - omeprazole (PRILOSEC) 20 mg capsule Takes 40mg before breakfast and 20mg before dinner - Fluticasone Furoate (FLONASE SENSIMIST) 27.5 mcg/actuation nasal spray Use 1 Morley in each nostril two times a day. - ketotifen fumarate (ZADITOR) 0.025 % (0.035 %) ophthalmic solution Use 1 Drop in both eyes two times a day as needed. - metoprolol succinate ER (TOPROL XL) 25 mg 24 hr tablet Take 1 tablet by mouth once daily. - cetirizine (ZYRTEC) 10 mg tablet Take 1 tablet by mouth once daily. - FLUoxetine (PROZAC) 40 mg capsule Take 40 mg by mouth once daily. Problem List As Of Date 09/13/2023 Noted Resolved Gastro-esophageal reflux disease without esopha*09/12/2022 Dizziness [R42] 07/03/2022 Headache [R51] 10/04/2022 Encounter Status:Closed by ELLA RAY on 09/13/23 Normal [facility] KARINA BY IFA WITH REFLEXon Nuclear Ab Ql (S) Negative Normal Negative [facility] Comment on above: Order Comment: Speci men Type: BLOOD SPECIMENOrdering Facility: [facility] Address: [address] [place] [address] Result Comment: Anti -nuclear antibody test is used as an aid in diagnosis of systemic autoimmune diseases. Where positive and clinically warranted, follow-up using disease-specific testing is recommended. Low positive titers are not uncommon with advanced age, certain chronic infections, and malignancies among others. Test methodology: Indirect fluorescence immunoassay (IFA) using HEp-2 cells. Performed By: #### A NAIFR ####[facility] LABCLIA [id number] [place] [address] [place] C-REACTIVE PROTEINon 024 CRP [Mass/Vol] 1.2 mg/dL High NINF - 0.9 mg/dL [facility] CNOVon 09-05-2023 [facility] Office Visit (JAQUELIN ) ACE LEONARDO ([id number]) 2 F Date Time Provider Department 09/05/23 10:30 AM HEMALATHA ANTHONY During your visit today, we recorded the following information about you: Pulse Respiration Blood pressure Weight 69/minute 18/minute 121/80 100.7 kg Hemalatha Anthony PA-C 09/05/2023 11:20 AM Signed ESTABLISHED PATIENT VISIT Last visit: 05/09/23 ASSESSMENT/PLAN: 1. Altered mental status, unspecified altered mental status type - ICD9: 780.97, ICD10: R41.82 (primary diagnosis) Patient with 2 episodes of loss of consciousness, the first was while in the shower and the second was while she was playing video games. Notes that she felt very dizzy before and also had cold clammy sweats with loss of consciousness following. Both were unwitnessed, unsure how long she was out for. Did bite her cheek, but no other tongue biting, no incontinence with this. Has not happened in the last month. Notes this is the first time she is passed out. Unclear etiology, low suspicion for seizure, but due to loss of consciousness without known trigger will obtain EEG to rule out any epileptiform changes. Discussed seizure precautions including not driving for 6 months after incident, bathing, climbing ladders, etc. Patient agrees and understands. Additionally, will have patient follow-up with cardiology as she has not seen them since her episodes of loss of consciousness. Could be related to POTS, tilt table did not show orthostatic hypotension. Discussed changing metoprolol but patient would like to continue dosage at this time. 2. POTS (postural orthostatic tachycardia syndrome) - ICD9: 427.89, ICD10: G90.A Patient notes some symptoms better symptoms are worse since last appointment. Is tolerating metoprolol, notes that complete resolution in her headaches since starting this medication but reports 2 episodes of syncope versus loss of consciousness as noted above. Unclear etiology regarding this. Patient is not exercising, but is drinking upwards of 100 ounces of water a day and wearing compression. Encouraged exercise and discussed at length the benefits. Also discussed your medical appointments and patient would like to try this. Will continue metoprolol 25 mg at this time as patient feels it is significantly benefited some aspects of her dizziness as well as her headaches. 3. Nausea - ICD9: 787.02, ICD10: R11.0 4. Obstructive sleep apnea - ICD9: 327.23, ICD10: G47.33 Patient with signs and symptoms of sleep apnea including frequent awakenings at night, daytime fatigue, dry mouth in the morning. Unsure if she snores. Also notes 30 pound weight gain since starting metoprolol. Discussed increased risk of sleep apnea, would like to treat conservatively at this time. Will have patient sleep on her side, treat allergies as she notes increased allergies lately but unable to afford allergy medications. Will prescribe Zyrtec as she has used this in the past and tolerated it well. Patient also noting some worsening depression. Discussed this could be a side effect of beta-blockers as well as obstructive sleep apnea. Encouraged her to reach out to her primary care who is treating her for anxiety with Prozac. Patient agrees understands, no suicidal thoughts. Patient was also found to have B12 deficiency, encouraged continuing supplementation for at least 6 months and then will redraw at next visit. Hemalatha Anthony PA-C CHIEF COMPLAINT: follow up HISTORY OF PRESENT ILLNESS: Ace Leonardo is a 22 year old female, There were no vitals taken for this visit. with a PMH significant for headache and POTS . Last seen 05/09/23 for AMS, POTS. 2 episodes of LOC ordered EEG. Encouraged FU with cards. On metoprolol for POTs and tolerated well. Gastric emptying study was normal. EEG normal. B12 supplementation was encouraged and follow up with PCP for depression. Patient presents for follow-up. Since last appointment she has not had any further episodes of loss of consciousness. Notes that her dizziness is only present when she is in the shower, otherwise no episodes of dizziness, headaches have completely resolved. Notes that her sleep is still poor, states it is hard to stay asleep sleeping over 5 to 10 hours based on her work schedule. Did talk about sleep apnea last appointment and notes that the Zyrtec did not seem to help any allergies. Did see an web producer and did not test positive for any allergies. Was diagnosed with chronic rhinitis. Notes her depression has improved as well, has been following with primary care for this. Did not see her surgical elastic knitter hand frame, did not have skin biopsy done as well. Notes good water intake and activity level. Is very active at work and works 5 days a week. Notes good salt intake, blood pressure was normal today. Patient does have new concern, notes that her finge (more content not included)... Normal [facility] CRP SerPl-mCncon 09-05-2023 CRP [Mass/Vol] 1.2 mg/dL High <0.9 [facility] Comment on above: Order Comment: Speci men Type: BLOOD SPECIMENOrdering Facility: [facility] Address: [address] [place] [address] Performed By: #### 1 [id number] ####[facility] LABCLIA [id number] [place] [address] [place] CRP [Mass/Vol]on 09-05-2023 Interpretation and review of laboratory results Abnormal [facility] ESR Westergren method (Bld) [Velocity]on 09-05-2023 ESR (Bld) [Velocity] 5 mm/h [facility] Interpretation and review of laboratory results Normal [facility] ESR (Bld) [Velocity] 5 mm/h Normal 0-20 [facility] Comment on above: Order Comment: Speci men Type: BLOOD SPECIMENOrdering Facility: [facility] Address: [address] [place] [address] Performed By: #### 4 [id number] ####[facility] LABCLIA [id number] [place] [address] [place] ALLERGEN SKIN TEST-INHALANT 40on 08-31-2023 INHALANT 40 PERCUTANEOUS & INTRADERMAL TESTING/ Mean Wheal & Flare Diameter (mm) Patient has been identified by name and date of : Yes . Skin test applied by : Iris Villanueva LPN Interpreted By: Dr. Tamayo * Clinical significant reactions are regarded as a wheal diameter greater than or equal to 3 mm with a flare diameter greater or equal to 6mm. ALLERGENS Negative Control: 50%Glycerin/50%Cocas P: W = 0 mm F = 0 mm Cat Hair 10,000 BAU/ml P: W = 0 mm F = 0 mm Dog Epithelial 1:20 P: W = 0 mm F = 0 mm Cockroach Mix 1:20 P: W = 0 mm F = 0 mm Mite Df 10,000 AU/ml P: W = 0 mm F = 0 mm Mite Dp 10,000AU/ml P: W = 0 mm F = 0 mm Alternaria Alternata 1:10 P: W = 0 mm F = 0 mm Aspergillus Fumigatus 1:20 P: W = 0 mm F = 0 mm Cladosporium sphearospermum 1:20 P: W = 0 mm F = 0 mm Epicoccum Nigrum 1:10 P: W = 0 mm F = 0 mm Fusarium Solani 1:40 P: W = 0 mm F = 0 mm Bipolaris Sorokiniana 1:20 P: W = 0 mm F = 0 mm Penicillium Mix 1:20 P: W = 0 mm F = 0 mm Rigoberto, White 1:20 P: W = 0 mm F = 0 mm Beech, [place] 1:20 P: W = 0 mm F = 0 mm Birch Mix 1:20 P: W = 0 mm F = 0 mm Maple Mix 1:20 P: W = 0 mm F = 0 mm Gibson ,Eastern 1:20 P: W = 0 mm F = 0 mm [place], Shagbark 1:20 P: W = 0 mm F = 0 mm [place] Tree, Red 1:20 P: W = 0 mm F = 0 mm [place], Black 1:20 P: W = 0 mm F = 0 mm [place], [place]/Eastern 1:20 P: W = 0 mm F = 0 mm [place] Pollen, Black 1:20 P: W = 0 mm F = 0 mm [place], Black 1:20 P: W = 0 mm F = 0 mm Bermuda Grass 10,000 BAU/ml P : W = 0 mm F = 0 mm [place], /September 100,000 BAU/ml P: W = 0 mm F = 0 mm Fescue, [place] 100,000 BAU/ml P: W = 0 mm F = 0 mm Albert Grass 1:20 P: W = 0 mm F = 0 mm Orchard Grass 100,000 BAU/ml P: W = 0 mm F = 0 mm Perennial [place], 100,000 BAU/ml P: W = 0 mm F = 0 mm Earl 100,000 BAU/ml P: W = 0 mm F = 0 mm Cocklebur 1:20 P: W = 0 mm F = 0 mm Yoe, sheep 1:20 P: W = 0 mm F = 0 mm Plantain, Jordanian 1:20 P: W = 0 mm F = 0 mm Lambs Quarters 1:20 P: W = 0 mm F = 0 mm [place] Elder, Burweed 1:20 P: W = 0 mm F = 0 mm Mugwort, Common 1:20 P: W = 0 mm F = 0 mm Pigweed, Rough 1:20 P: W = 0 mm F = 0 mm Ragweed, Mix 1:20 P: W = 0 mm F = 0 mm HISTAMINE, positive control(Histamine base 6mg/ml) P: W = 7 mm F = [address] [facility] CNOVon 08-31-2023 CNOV Office Visit (ALLMED ) RALPHACE Jose Manuel ([id number]) 2 F Date Time Provider Department 08/31/23 8:30 AM ZITA TAMAYO During your visit today, we recorded the following information about you: Pulse Respiration Blood pressure Weight 83/minute 18/minute 128/83 100 kg Iris Villanueva LPN 08/31/2023 8:33 AM Signed NEW. Patient here for environmental/food allergies - states Food - GERD, noted undigested food in BM x years Seasonal - sneezing, itching eyes, clearing throat, congestion, PND worst in Spring to Summer months Last date Zyrtec she took was 08/28/2023. Zita Tamayo MD 08/31/2023 9:52 AM Signed [facility] New Patient Visit Note HPI Ace Leonardo is a 22 year old female presented today with her boyfriend for evaluation of possible food allergy, environmental allergies. Noticed undigested food in her bowel movements. Sxs have been going on for a long time. Food of concerns are lettuce, peanuts, corn, beans. Dairy and chicken come right up - regurgitation. Hx negative for IgE mediated reactions with any food. Denies weight loss. Seen by GI, Noted to have a normal barium swallow evaluation. Has been on omeprazole for the past month with some improvement. Planning for EGD. C/o sneezing, itching, PND triggering cough. Sxs have been going on for years, worse in spring and fall. Tried Claritin, Zyrtec, Benadryl, and OTC nasal spray. Environmental History: Residence: [place] Pets: 2 cats, 1 dog History reviewed. No pertinent past medical history. History reviewed. No pertinent surgical history. FAMILY HISTORY Problem Relation Age of Onset Seizures Maternal Grandmother Heart Unknown maternal and paternal side Hypertension Unknown maternal great mother Cancer Unknown brain cancer- maternal great aunt other (hearing problems [Other]) Unknown maternal grandmother Social History Tobacco Use Smoking status: Former Types: Cigarettes Smokeless tobacco: Never Current Outpatient Medications Medication Sig L-norgest/e.estradiol- e.estrad (JAIMIESS ORAL) mecobalamin, vitamin B12, (B12 ACTIVE) 1,000 mcg chew omeprazole (PRILOSEC) 40 mg capsule omeprazole (PRILOSEC) 20 mg capsule Takes 40mg before breakfast and 20mg before dinner metoprolol succinate ER (TOPROL XL) 25 mg 24 hr tablet Take 1 tablet by mouth once daily. cetirizine (ZYRTEC) 10 mg tablet Take 1 tablet by mouth once daily. FLUoxetine (PROZAC) 40 mg capsule Take 40 mg by mouth once daily. No current facility-administered medications for this visit. ALLERGIES No Known Allergies Review of Systems Constitutional: Neg for fever GI:see HPI Endocrine: Neg for thyroid disease Derm: Neg for rash Neurology: Diagnosed with dysautonomia. On BB -.Following with neurology. Rheumatology: Neg for joints swelling. All other systems reviewed and negative except as documented above. Blood pressure 128/83, pulse 83, resp. rate 18, weight 100 kg (220 lb 7.4 oz), SpO2 99%. Body mass index is 35.77 kg/m?. Physical Exam: General: NAD HEENT: NC/AT, PERRLA, EOMI, no pallor/icterus, MMM, no thrush, oropharynx without exudates. +Clear PND was noted. Neck: supple Chest: CTA b/l, no crackles, rales or wheezing CV: RRR, normal S1/S2, no murmurs, rubs or gallops Abd: soft, non tender nor distended, no hepatosplenomegaly Ext: no cyanosis, clubbing or edema Skin: no rashes, bruises or seborrhea Neuro: AAOx4, non focal exam Allergy Skin Testing 08/31/23 I personally reviewed this patient's results and interpreted the results as follows: Skin testing with inhalants negative. Imaging Gastric emptying study 05/2023: No evidence of gastroparesis Assessment and Recommendations Ace was seen today for consult. Diagnoses and all orders for this visit: Adverse reaction to food, subsequent encounter Gastroesophageal reflux disease With the lack of IgE mediated reactions with food, skin testing with food is not indicated. Continue with PPI and follow closely with GI. Chronic rhinitis Other chronic allergic conjunctivitis of both eyes Triggers of non allergic rhinitis were discussed. Sxs not well controlled. Would benefit from Flonase sensimist 1 s/n BID. Ketotifen eye gtt PRN Other orders - Fluticasone Furoate (FLONASE SENSIMIST) 27.5 mcg/actuation nasal spray; Use 1 Morley in each nostril two times a day. - ketotifen fumarate (ZADITOR) 0.025 % (0.035 %) ophthalmic solution; Use 1 Drop in both eyes two times a day as needed. Return to clinic in 3 months, sooner if there's any concern. AVS provided to patient and included recap of today's appointment and medical plan. Zita Tamayo MD Allergy AND Clinical Immunology [facility] Zita Tamayo MD 08/31/2023 9:48 AM Addendum Flonase sensimist 1 spray in each (more content not included)... Normal [facility] NM GASTRIC EMPTYING SOLIDon 05-18-2023 NM GASTRIC EMPTYING SOLID * * *Final Report* * * DATE OF EXAM: May 18 2023 12:30PM PIETRO Keen - NM GASTRIC EMPTYING SOLID / PROCEDURE REASON: multiple diagnoses * * * * Physician Interpretation * * * * SOLID MEAL GASTRIC EMPTYING STUDY 05/18/2023 2:03 PM: CLINICAL HISTORY: 22 years old Female patient with history of nausea, dyspepsia. TECHNIQUE: 1.1 mCi Tc-99m MDP was given orally in a meal consisting of 4 ounces of egg beater, 2 pieces of toast, 1 ounce of jelly, and 8 ounces of water, consumed over 5 to 10 minutes. 1-minute posterior and anterior spot images of the stomach region at times 0, 1, 2, and 4 hours were obtained. Geometric mean was used to plot a time-activity curve. RESULT: Solid study demonstrates: - 90% gastric retention at 1 hour (normal range, 37-90%), - 18% retention at 2 hours (normal range, 30-60%), and - 0% retention at 4 hours (normal range, 0-10%). There is no evidence of accelerated emptying of gastric contents, with 90% retention at 1 hour (rapid emptying is <30% retention at 1 hour). IMPRESSION: No RATE OF GASTRIC EMPTYING OF A SOLID MEAL. No evidence of gastroparesis. Director [facility] Compl[facility] Transcribe Date/Time: May 18 2023 2:03P Dictated by : TJ ESCAMILLA MD This examination was interpreted and the report reviewed and electronically signed by: TJ ESCAMILLA MD on May 18 2023 2:04PM EST [id number] Normal [facility] CNOVon 05-09-2023 CNOV Office Visit (NEMOWS ) ACE LEONARDO ([id number]) 2 F Date Time Provider Department 05/09/23 10:30 AM HEMALATHA ANTHONY During your visit today, we recorded the following information about you: Pulse Respiration Blood pressure Weight 64/minute 18/minute 120/78 84.5 kg Hemalatha Anthony PA-C 05/09/2023 11:22 AM Signed ESTABLISHED PATIENT VISIT Last visit: 01/09/23 ASSESSMENT/PLAN: [...] headache, MRI of the brain obtained at [facility] is negative for signs of intracranial [...] COMPLAINT: follow up HISTORY OF PRESENT ILLNESS: Ace Leonardo is a 22 year old female, [...] seen cardiology in the last few months. (more content not included)... Normal [facility] Diann 02-26-2023 [facility] Telephone (ISELAWS) ACE LEONARDO ([id number]) 2 F Date Time Provider Department 02/26/23 QUEENER, HEMALATHA FAMPWS During your visit today, we recorded the following information about you: Pushpa Paul LPN 02/26/2023 11:50 AM Signed Pt is calling in regards to metoprolol 25 mg rx. Prior auth was denied by insurance (encounter 02/22/23). Pt is asking what happens now. Diane Spicer LPN, LPN 02/26/2023 12:17 PM Signed Prior authorization denied, reported patient must try 30 days immediate release with inadequate clinical response prior to extended release. Media Information File Link Scan on 02/22/2023 5:14 PM by Provider, ADA Dior: AMY denial Metoprolol Pushpa Skinner LPN, LPN 06/19/2023 11:38 AM Signed New rx was sent to pharmacy by provider. Pushpa Paul LPN Allergies As of Date: 02/26/2023 (No Known Allergies) Date Reviewed: 01/09/2023 Reviewed by: Hemalatha Anthony PA-C - Fully Assessed Reason for Visit: Medication Question [0598] Prescriptions as of 06/19/2023 - cetirizine (ZYRTEC) 10 mg tablet Take 1 tablet by mouth once daily. - metoprolol tartrate, short acting, (LOPRESSOR) 25 mg tablet Take 1 tablet by mouth two times a day. - FLUoxetine (PROZAC) 40 mg capsule Take 40 mg by mouth once daily. Problem List As Of Date 02/26/2023 Noted Resolved Gastro-esophageal reflux disease without esopha*09/12/2022 Dizziness [R42] 07/03/2022 Headache [R51] 10/04/2022 Encounter Status:Closed by PUSHPA PAUL on 06/19/23 [facility] Diann 02-22-2023 [place] Tele[facility] (NEMCLARISA) ACE LEONARDO ([id number]) 2 F Date Time Provider Department 02/22/23 HEMALATHA ANTHONY During your visit today, we recorded the following information about you: Armando Anderson RN 02/22/2023 11:53 AM Signed Prior Authorization Documentation Prior authorization requested for the following medication: Medication: metoprolol Provider: [employer] Name: [employer] Phone number: [phone] Patient ID number: [id number] [facility]acy Name: [facility] Patient reports she needs prior auth for metoprolol Daine Hickey LPN 02/22/2023 12:54 PM Signed Faxed Prior Authorization to [facility] [phone] for Metoprolol 25 mg, 11 pages 02/22/2023. Placed documents in [place] [facility] location. Patient notified MyChart. Diane Stanton LPN, LPN 02/23/2023 2:17 PM Signed Denial prior authorization scanned into chart. Patient needs to have a history of two preferred medications for thirty days IR (immediate release). Hmealatha Fermin LPN, PA-C 02/27/2023 1:59 PM Signed Will start on metoprolol tartrate 12.5 mg BID instead. Hemalatha Anthony PA-C 02/27/2023 2:00 PM Signed Addended by: HEMALATHA ANTHONY on: 02/27/2023 02:00 PM Modules accepted: Rose Murdock OCCA 02/27/2023 2:19 PM Signed TC to patient who verbalized understanding of providers message below. Patient agreeable to metoprolol tartrate. Nothing further at this time. RACIEL Su Allergies As of Date: 02/22/2023 (No Known Allergies) Date Reviewed: 01/09/2023 Reviewed by: Hemalatha Anthony PA-C - Fully Assessed Reason for Visit: metoprolol PA [Other] Order(s):metoprolol tartrate, short acting, (LOPRESSOR) 25 mg tabletTake 1 tablet by mouth two times a day.Disp: 60 tabletRfl: 2 Prescriptions as of 02/27/2023 - metoprolol tartrate, short acting, (LOPRESSOR) 25 mg tablet Take 1 tablet by mouth two times a day. - FLUoxetine (PROZAC) 40 mg capsule Take 40 mg by mouth once daily. Problem List As Of Date 02/22/2023 Noted Resolved Gastro-esophageal reflux disease without esopha*09/12/2022 Dizziness [R42] 07/03/2022 Headache [R51] 10/04/2022 Prescriptions ordered this encounter Disp Refills Start End METOPROLOL TARTRATE 25 MG TABLET 60 t* 2 02/27/2023 Route: ORAL Sig: Take 1 tablet by mouth two times a day. Medications Discontinued During This Encounter Prescriptions - metoprolol succinate 25 mg CSpX (Discontinued) Take 1 capsule by mouth once daily. Encounter Status:Closed by DIANE HICKEY LPN on 02/22/23 Normal [facility] AMBER SerPl-cCncon 01-09-2023 Angiotensin converting enzyme [Catalytic activity/Vol] 42 U/L Normal <=52 [facility] Comment on above: Order Comment: Jonnathan jones Type: BLOOD SPECIMENOrdering Facility: [facility] Address: [address] [phone] Result Comment: Yaneth ficially low AMBER levels may be found for patients taking AMBER inhibitors or after the administration of gadolinium. This test was developed and its performance characteristics determined by [facility]'s [facility] Pathology and Laboratory Medicine [place] ([facility]). It has not been cleared or approved by the FDA. [facility] is regulated under CLIA as qualified to perform high-complexity testing. This test is used for clinical purposes. It should not be regarded as investigational or for research. Performed By: #### 2 742-5 ####[facility] LABCLIA [id number] [facility] [id number] [place] [address] [place] KARINA BY IFA WITH REFLEXon Nuclear Ab Ql (S) Negative Normal Negative [facility] Comment on above: Order Comment: Jonnathan jones Type: BLOOD SPECIMENOrdering Facility: [facility] Address: [address] [place] [address] Result Comment: Anti -nuclear antibody test is used as an aid in diagnosis of systemic autoimmune diseases. Where positive and clinically warranted, follow-up using disease-specific testing is recommended. Low positive titers are not uncommon with advanced age, certain chronic infections, and malignancies among others. Test methodology: Indirect fluorescence immunoassay (IFA) using HEp-2 cells. Performed By: #### A NCJose Manuel ANAIFR ####[facility] LABCLIA [id number] [address] ANTI NEUTRO CYTO ABon 2022 INTERPRETATION (ANCA) Negative for C-ANC A and P-ANCA by indirect immunofluorescence. Normal [facility] Comment on above: Order Comment: Speci men Type: BLOOD SPECIMENOrdering Facility: [facility] Address: [address] [place] [address] Performed By: #### A NCA, ANAIFR ####[facility] LABCLIA [id number] [address] Neutrophil cytoplasmic Ab.classic IF Ql (S) Negative Normal Negative [facility] Comment on above: Order Comment: Speci men Type: BLOOD SPECIMENOrdering Facility: [facility] Address: [address] [place] [address] Performed By: #### A NCJose Manuel ANAIFR ####[facility] LABCLIA [id number] [address] Neutrophil cytoplasmic Ab.perinuclear IF Ql (S) Negative Normal Negative [facility] Comment on above: Order Comment: Speci men Type: BLOOD SPECIMENOrdering Facility: [facility] Address: [address] [address] Performed By: #### A NCA, ANAIFR ####[facility] LABCLIA [id number] [address] STAFF REVIEW (ANCA) No review performed. Normal [facility] Comment on above: Order Comment: Speci men Type: BLOOD SPECIMENOrdering Facility: [facility] Address: [address] [address] Performed By: #### A NCJose Manuel, ANAIFR ####[facility] LABCLIA [id number] [place] [address] [place] CBC W Auto Differential pane l (Bld)on 01-09-2023 Basophils (Bld) [#/Vol] 0.06 10*3/uL Normal <0.11 [facility] Comment on above: Order Comment: Speci men Type: BLOOD SPECIMENOrdering Facility: [facility] Address: [address] [address] Performed By: #### 5 7021-8 ####[facility] LABCLIA [id number] [place] [address] [place] Basophils/100 WBC (Bld) 1.0 % Normal [facility] Comment on above: Order Comment: Speci men Type: BLOOD SPECIMENOrdering Facility: [facility] Address: [address] [place] [address] Performed By: #### 5 7021-8 ####[facility] LABIA [id number] [place] [address] [place] Differential cell count method Nom (Bld) Auto Normal [facility] Comment on above: Order Comment: Speci men Type: BLOOD SPECIMENOrdering Facility: [facility] Address: [address] [place], [place] [address] Performed By: #### 5 7021-8 ####[facility] LABCLIA [id number] [place] [address] [place] Eosinophils (Bld) [#/Vol] 0.04 10*3/uL Normal <0.46 [facility] Comment on above: Order Comment: Speci men Type: BLOOD SPECIMENOrdering Facility: [facility] Address: [address] [place] [address] Performed By: #### 5 7021-8 ####[facility] LABCLIA [id number] [place] [address] [place] Eosinophils/100 WBC (Bld) 0.6 % Normal [facility] Comment on above: Order Comment: Speci men Type: BLOOD SPECIMENOrdering Facility: [facility] Address: [address] [place] [address] Performed By: #### 5 7021-8 ####[facility] LABCLIA [id number] [place] [address] [place] Erythrocyte distribution width (RBC) [Ratio] 12.8 % Normal 11.5-15.0 [facility] Comment on above: Order Comment: Speci men Type: BLOOD SPECIMENOrdering Facility: [facility] Address: [address] [place] [address] Performed By: #### 5 7021-8 ####[facility] LABIA [id number] [place] [address] [place] Hematocrit (Bld) [Volume fraction] 41.6 % Normal 36.0-46.0 [facility] Comment on above: Order Comment: Speci men Type: BLOOD SPECIMENOrdering Facility: [facility] Address: [address] [place], [place] [address] Performed By: #### 5 7021-8 ####[facility] LABCLIA [id number] [place] [address] [place] Hemoglobin (Bld) [Mass/Vol] 13.1 g/dL Normal 11.5-15.5 [facility] Comment on above: Order Comment: Speci men Type: BLOOD SPECIMENOrdering Facility: [facility] Address: [address] [place], [place] [address] Performed By: #### 5 7021-8 ####[facility] LABCLIA [id number] [place] [address] [place] Immature granulocytes (Bld) [#/Vol] 10*3/uL Normal <0.10 [facility] Comment on above: Order Comment: Speci men Type: BLOOD SPECIMENOrdering Facility: [facility] Address: [address] [address] Performed By: #### 5 7021-8 ####[facility] LABCLIA [id number] [address] STATES [facility] Immature granulocytes/100 WBC (Bld) 0.3 % Normal [facility] Comment on above: Order Comment: Speci men Type: BLOOD SPECIMENOrdering Facility: [facility] Address: [address] [address] Performed By: #### 5 7021-8 ####[facility] LABCLIA [id number] [place] [address] [place] Lymphocytes (Bld) [#/Vol] 1.86 10*3/uL Normal 1.00-4.00 [facility] Comment on above: Order Comment: Speci men Type: BLOOD SPECIMENOrdering Facility: [facility] Address: [address] [place] [address] Performed By: #### 5 7021-8 ####[facility] LABCLIA [id number] [address] [place] Lymphocytes/100 WBC (Bld) 29.9 % Normal [facility] Comment on above: Order Comment: Speci men Type: BLOOD SPECIMENOrdering Facility: [facility] Address: [address] [place], [place] [address] Performed By: #### 5 7021-8 ####[facility] LABCLIA [id number] [place] [address] [place] MCH (RBC) [Entitic mass] 27.9 pg Normal 26.0-34.0 [facility] Comment on above: Order Comment: Speci men Type: BLOOD SPECIMENOrdering Facility: [facility] Address: [address] [place] [address] Performed By: #### 5 7021-8 ####[facility] LABCLIA [id number] [place] [address] [place] MCHC (RBC) [Mass/Vol] 31.5 g/dL Normal 30.5-36.0 [facility] Comment on above: Order Comment: Speci men Type: BLOOD SPECIMENOrdering Facility: [facility] Address: [address] [place] [address] Performed By: #### 5 7021-8 ####[facility] [id number] [place] [address] [place] MCV (RBC) [Entitic vol] 88.5 fL Normal 80.0-100.0 [facility] Comment on above: Order Comment: Speci men Type: BLOOD SPECIMENOrdering Facility: [facility] Address: [address] [place] [address] Performed By: #### 5 7021-8 ####[facility] [id number] [place] [address] [place] Monocytes (Bld) [#/Vol] 0.45 10*3/uL Normal <0.87 [facility] Comment on above: Order Comment: Speci men Type: BLOOD SPECIMENOrdering Facility: [facility] Address: [address] [place] [address] Performed By: #### 5 7021-8 ####[facility] LABUNIV[facility] [id number] [place] [address] [place] Monocytes/100 WBC (Bld) 7.2 % Normal [facility] Comment on above: Order Comment: Speci men Type: BLOOD SPECIMENOrdering Facility: [facility] Address: [address] [place], [place] [address] Performed By: #### 5 7021-8 ####[facility]UN[facility] [id number] [place] [address] [place] Neutrophils (Bld) [#/Vol] 3.80 10*3/uL Normal 1.45-7.50 [facility] Comment on above: Order Comment: Speci men Type: BLOOD SPECIMENOrdering Facility: [facility] Address: [address] Performed By: #### 5 7021-8 ####[facility] LABIA [id number] [place] [address] [place] Neutrophils/100 WBC (Bld) 61.0 % Normal [facility] Comment on above: Order Comment: Speci men Type: BLOOD SPECIMENOrdering Facility: [facility] Address: [address] Performed By: #### 5 7021-8 ####[facility] LABIA [id number] [place] [address] [place] Nucleated RBC (Bld) [#/Vol] 10*3/uL Normal <0.01 [facility] Comment on above: Order Comment: Speci men Type: BLOOD SPECIMENOrdering Facility: [facility] Address: [address] Performed By: #### 5 7021-8 ####[facility] LABIA [id number] [place] [address] [place] Nucleated RBC/100 WBC (Bld) [Ratio] 0.0 /100 WBC Normal [facility] Comment on above: Order Comment: Speci men Type: BLOOD SPECIMENOrdering Facility: [facility] Address: [address] Performed By: #### 5 7021-8 ####[facility] LABIA [id number] [place] [address] [place] Platelet mean volume (Bld) [Entitic vol] 10.6 fL Normal 9.0-12.7 [facility] Comment on above: Order Comment: Speci men Type: BLOOD SPECIMENOrdering Facility: [facility] Address: [address] Performed By: #### 5 7021-8 ####[facility] LABIA [id number] [place] [address] [place] Platelets (Bld) [#/Vol] 370 10*3/uL Normal 150-400 [facility] Comment on above: Order Comment: Speci men Type: BLOOD SPECIMENOrdering Facility: [facility] Address: [address] [place] [address] Performed By: #### 5 7021-8 ####[facility] [id number] [place] [address] [place] RBC (Bld) [#/Vol] 4.70 10*6/uL Normal 3.90-5.20 [facility] Comment on above: Order Comment: Speci men Type: BLOOD SPECIMENOrdering Facility: [facility] Address: [address] [place] [address] Performed By: #### 5 7021-8 ####[facility] [id number] [place] [address] [place] WBC (Bld) [#/Vol] 6.23 10*3/uL Normal 3.70-11.00 [facility] Comment on above: Order Comment: Speci men Type: BLOOD SPECIMENOrdering Facility: [facility] Address: [address] [place] [address] Performed By: #### 5 7021-8 ####[facility] [id number] [address] [place] CNOVon 01-09-2023 CN[facility] Office Visit (JAQUELIN ) ACE [id number]) 2 F Date Time Provider Department 01/09/23 3:45 PM HEMALATHA ANTHONY During your visit today, we recorded the following information about you: Temperature Pulse Respiration Blood pressure 98.4 degrees 77/minute 18/minute 128/83 Weight 84.5 kg Hemalatha Anthony PA-C 01/09/2023 4:34 PM Signed [facility] for General Neurology Follow up CC: Headache Follow up Last Visit: 10/04/22 Assessment AND Plan: Ace Leonardo is a 22 year old female with a history of GERD. Her examination demonstrates mild small fiber abnormalities to the hands and feet as noted above. Negative orthostats today (noted difficulty with reading on machine, needed manual). Patient with lightheadedness and presyncope onset a few months ago. Onset with sitting to standing, exercise. Has been evaluated by cardiology at [facility] with normal ECHO, normal holter, and normal [...] the completion of her tilt able test. Ace was seen today for new patient. Today: [...] she has lightheadedness, previous MRI imaging at [facility] was negative. Notes that the headaches [...] Health Issues: No New Social History: No (more content not included)... Normal [facility] Comprehensive metabolic 2000 panelon 01-09-2023 Albumin [Mass/Vol] 4.5 g/dL Normal 3.9-4.9 [facility] Comment on above: Order Comment: Speci men Type: BLOOD SPECIMENOrdering Facility: [facility] Address: [address] [place] [address] Performed By: #### 2 4323-8, 2-9, 3016-3, 2885-2 ####[facility] LABCLIA [id number] [place] [address] [place] ALP [Catalytic activity/Vol] 67 U/L Normal 34-123 [facility] Comment on above: Order Comment: Speci men Type: BLOOD SPECIMENOrdering Facility: [facility] Address: [address] [place] [address] Performed By: #### 2 4323-8, 9, 3016-3, 2885-2 ####[facility] LABCLIA [id number] [place] [address] [place] ALT [Catalytic activity/Vol] 16 U/L Normal 7-38 [facility] Comment on above: Order Comment: Speci men Type: BLOOD SPECIMENOrdering Facility: [facility] Address: [address] [place] [address] Performed By: #### 2 4323-8, 9, 3016-3, 2885-2 ####[facility] LABCLIA [id number] [place] [address] [place] Anion gap [Moles/Vol] 11 mmol/L Normal 9-18 [facility] Comment on above: Order Comment: Speci men Type: BLOOD SPECIMENOrdering Facility: [facility] Address: [address] [place] [address] Performed By: #### 2 4323-8, 2131-9, 3016-3, 2885-2 ####[facility] LABCLIA [id number] [place] [address] [place] AST [Catalytic activity/Vol] 19 U/L Normal 13-35 [facility] Comment on above: Order Comment: Speci men Type: BLOOD SPECIMENOrdering Facility: [facility] Address: [address] [place] [address] Performed By: #### 2 4323-8, 2-9, 3016-3, 2885-2 ####[facility] LABCLIA [id number] [place] [address] [place] Bilirubin [Mass/Vol] 0.2 mg/dL Normal 0.2-1.3 [facility] Comment on above: Order Comment: Speci men Type: BLOOD SPECIMENOrdering Facility: [facility] Address: [address] [place] [address] Performed By: #### 2 4323-8, 9, 6-3, 2885-2 ####[facility] LABCLIA [id number] [place] [address] [place] Calcium [Mass/Vol] 9.4 mg/dL Normal 8.5-10.2 [facility] Comment on above: Order Comment: Speci men Type: BLOOD SPECIMENOrdering Facility: [facility] Address: [address] [place] [address] Performed By: #### 2 4323-8, 2131-9, 6-3, 2885-2 ####[facility] LABCLIA [id number] [place] [address] [place] Chloride [Moles/Vol] 102 mmol/L Normal 97-105 [facility] Comment on above: Order Comment: Speci men Type: BLOOD SPECIMENOrdering Facility: [facility] Address: [address] [place] [address] Performed By: #### 2 4323-8, 2-9, 3016-3, 2885-2 ####[facility] LABCLIA [id number] [place] [address] [place] CO2 [Moles/Vol] 25 mmol/L Normal 22-30 [facility] Comment on above: Order Comment: Speci men Type: BLOOD SPECIMENOrdering Facility: [facility] Address: [address] [place] [address] Performed By: #### 2 4323-8, 2-9, 3016-3, 2885-2 ####[facility] LABCLIA [id number] [place] [address] [place] Creatinine [Mass/Vol] 0.77 mg/dL Normal 0.58-0.96 [facility] Comment on above: Order Comment: Speci men Type: BLOOD SPECIMENOrdering Facility: [facility] Address: [address] [place] [address] Performed By: #### 2 4323-8, 9, 6-3, 2885-2 ####[facility] LABIA [id number] [address] STATES OF [facility] Creatinine and Glomerular filtration rate.predicted panel (S/P/Bld) 113 mL/min/1.73m??? Normal >=60 [facility] Comment on above: Order Comment: Speci men Type: BLOOD SPECIMENOrdering Facility: [facility] Address: [address] [place] [address] Result Comment: Mamta mated Glomerular Filtration Rate (eGFR) is calculated using the 2020 CKD-EPI creatinine equation. This equation utilizes serum creatinine, sex, and age as parameters. The creatinine assay has traceable calibration to isotope dilution-mass spectrometry. Refer to KDIGO guidelines for clinical interpretation. In patients with unstable renal function, e.g. those with acute kidney injury, the eGFR may not accurately reflect actual GFR. Performed By: #### 2 4323-8, 2-9, 3016-3, 2885-2 ####[facility] LABCLIA [id number] [place] [id number] [place] Glucose [Mass/Vol] 82 mg/dL Normal 74-99 [facility] Comment on above: Order Comment: Speci men Type: BLOOD SPECIMENOrdering Facility: [facility] Address: [address] [place] [address] Result Comment: The [place] [employer] (ADA) provides guidance for cutoff values for fasting glucose and random glucose. The ADA defines fasting as no caloric intake for at least 8 hours. Fasting plasma glucose results between 100 to 125 mg/dL indicate increased risk for diabetes (prediabetes). Fasting plasma glucose results greater than or equal to 126 mg/dL meet the criteria for diagnosis of diabetes. In the absence of unequivocal hyperglycemia, results should be confirmed by repeat testing. In a patient with classic symptoms of hyperglycemia or hyperglycemic crisis, random plasma glucose results greater than or equal to 200 mg/dL meet the criteria for diagnosis of diabetes. Reference: Standards of Medical Care in Diabetes 2016, [place] [employer]. Diabetes Care. 2016.39(Suppl 1). Performed By: #### 2 4323-8, 9, 6-3, 2885-2 ####[facility] LABCLIA [id number] [place] [address] [place] Potassium [Moles/Vol] 4.6 mmol/L Normal 3.7-5.1 [facility] Comment on above: Order Comment: Rosarioi men Type: BLOOD SPECIMENOrdering Facility: [facility] Address: [address] [place] [address] Performed By: #### 2 4323-8, 9, 6-3, 2885-2 ####[facility] LABCLIA [id number] [place] [address] [place] Sodium [Moles/Vol] 138 mmol/L Normal 136-144 [facility] Comment on above: Order Comment: Speci men Type: BLOOD SPECIMENOrdering Facility: [facility] Address: [address] [place] [address] Performed By: #### 2 4323-8, 9, 6-3, 2885-2 ####[facility] LABCLIA [id number] [place] [address] [place] [place] Urea nitrogen [Mass/Vol] 8 mg/dL Normal 7-21 [facility] Comment on above: Order Comment: Jonnathan jones Type: BLOOD SPECIMENOrdering Facility: [facility] Address: [address] [place] [address] Performed By: #### 2 4323-8, 2132-9, 3016-3, 2885-2 ####[facility] LABCLIA [id number] [place] [address] [place] HbA1c (Bld)on 01-09-2023 Average glucose Estimated from glycated hemoglobin (Bld) [Mass/Vol] 97 mg/dL Normal [facility] Comment on above: Order Comment: Jonnathan jones Type: BLOOD SPECIMENOrdering Facility: [facility] Address: [address] [place] [address] Result Comment: eAG: (Estimated average glucose) is a calculated value from HgbA1c and is publications sales representative of the average blood glucose level in the last 2-3 month period. Performed By: #### 5 5454-3 ####[facility] LABCLIA [id number] [address] STATES OF [facility] HbA1c (Bld) [Mass fraction] 5.0 % Normal 4.3-5.6 [facility] Comment on above: Order Comment: Jonnathan jones Type: BLOOD SPECIMENOrdering Facility: [facility] Address: [address] [place] [address] Result Comment: Amer [place] Diabetes Association guidelines indicate that patients with HgbA1c in the range 5.7-6.4% are at increased risk for development of diabetes, and intervention by lifestyle modification may be beneficial. HgbA1c greater or equal to 6.5% is considered diagnostic of diabetes. Performed By: #### 5 5454-3 ####[facility] LABCLIA [id number] [address] [place] IMMUNOFIXATION SCREEN, SERUM on 01-09-2023 MPA RESULT No M protein is identified. Normal No M protein is identified. [facility] Comment on above: Order Comment: Speci men Type: BLOOD SPECIMENOrdering Facility: [facility] Address: [address] [place] [address] Performed By: #### L [id number], IFESC ####[facility] LABCLIA [id number] [address] [place] STAFF REVIEW (MPA) Reviewed by Dr. Juaquin Carcamo MD [facility] Comment on above: Order Comment: Speci men Type: BLOOD SPECIMENOrdering Facility: [facility] Address: [address] [place] [address] Performed By: #### L [id number], IFESC ####[facility] LABIA [id number] [address] [place] Methylmalonate SerPl-sCncon 01-09-2023 Methylmalonate [Moles/Vol] 0.39 umol/L Normal <=0.40 [facility] Comment on above: Order Comment: Speci men Type: BLOOD SPECIMENOrdering Facility: [facility] Address: [address] [place] [address] Result Comment: This test was developed and its performance characteristics determined by [facility] [place] ([facility]). It has not been cleared or approved by the FDA. -[facility] is regulated under CLIA as qualified to perform high-complexity testing. This test is used for clinical purposes. It should not be regarded as investigational or for research. Performed By: #### 1 3964-2 ####[facility] LABIA [id number] [address] [place] PROTEIN ELECTROPHORESIS SERU M WITH MERVAT (P)on 01-09-2023 Albumin [Mass/Vol] 4.19 g/dL Normal 3.43-5.41 [facility] Comment on above: Order Comment: Speci men Type: BLOOD SPECIMENOrdering Facility: [facility] Address: [address] [address] Performed By: #### L [id number], IFESC ####[facility] [id number] [address] Alpha 1 globulin Elph [Mass/Vol] 0.35 g/dL Normal 0.18-0.43 [facility] Comment on above: Order Comment: Speci men Type: BLOOD SPECIMENOrdering Facility: [facility] Address: [address] [place] [address] Performed By: #### L [id number], IFESC ####[facility] [id number] [address] [place] Alpha 2 globulin Elph [Mass/Vol] 0.89 g/dL Normal 0.42-0.98 [facility] Comment on above: Order Comment: Speci men Type: BLOOD SPECIMENOrdering Facility: [facility] Address: [address] [place] [address] Performed By: #### L [id number], IFESC ####[facility] [id number] [address] [place] Beta globulin Elph [Mass/Vol] 0.91 g/dL Normal 0.61-1.17 [facility] Comment on above: Order Comment: Speci men Type: BLOOD SPECIMENOrdering Facility: [facility] Address: [address] [place], [place] [address] Performed By: #### L [id number], IFESC ####[facility] [id number] [address] [place] COMMENT (SERUM PROT ELECTRO) A reflex test for Monoclonal Protein analysis (immunofixation) has been ordered. Normal [facility] Comment on above: Order Comment: Speci men Type: BLOOD SPECIMENOrdering Facility: [facility] Address: [address] [place], [place] [address] Performed By: #### L [id number], IFESC ####[facility] LABCLIA [id number] [address] OF [facility] Gamma globulin Elph [Mass/Vol] 0.75 g/dL Normal 0.53-1.51 [facility] Comment on above: Order Comment: Speci men Type: BLOOD SPECIMENOrdering Facility: [facility] Address: [address] [place] [address] Performed By: #### L [id number], IFESC ####[facility] LABCLIA [id number] [address] INTERPRETATION COMMENT FOR PROTEIN ELECTROPHORESIS The atypical region did not stain on accompanying immunofixation and therefore is unlikely to be a monoclonal immunoglobulin. Normal [facility] Comment on above: Order Comment: Speci men Type: BLOOD SPECIMENOrdering Facility: [facility] Address: [address] [place] [address] Performed By: #### L [id number], IFESC ####[facility] LABCLIA [id number] [address] M-PROTEIN LOCATION Normal [facility] Comment on above: Order Comment: Speci men Type: BLOOD SPECIMENOrdering Facility: [facility] Address: [address] [place] [address] Result Comment: Not Applicable. Performed By: #### L [id number], IFESC ####[facility] LABCLIA [id number] [address] Protein Fractions [Interp] An atypical region of restricted mobility is identified on protein electrophoresis. Abnormal No definitive M protein is identified on protein electrophoresi s. [facility] Comment on above: Order Comment: Speci men Type: BLOOD SPECIMENOrdering Facility: [facility] Address: [address] [place] [address] Performed By: #### L [id number], IFESC ####[facility] LABCLIA [id number] [address] Protein.monoclonal Elph [Mass/Vol] 0.00 g/dL Normal <=0.00 [facility] Comment on above: Order Comment: Speci men Type: BLOOD SPECIMENOrdering Facility: [facility] Address: [address] [place] [address] Performed By: #### L [id number], IFESC ####[facility] LABCLIA [id number] [address] SPE STAFF REVIEW Reviewed by Dr. Juaquin Carcamo MD [facility] Comment on above: Order Comment: Speci men Type: BLOOD SPECIMENOrdering Facility: [facility] Address: [address] [place] [address] Performed By: #### L [id number], IFESC ####[facility] LABCLIA [id number] [address] Prot SerPl-mCncon 01-09-2023 Protein [Mass/Vol] 7.1 g/dL Normal 6.3-8.0 [facility] Comment on above: Order Comment: Speci men Type: BLOOD SPECIMENOrdering Facility: [facility] Address: [address] [place] [address] Performed By: #### 2 4323-8, 2132-9, 3016-3, 2885-2 ####[facility] LABCLIA [id number] [address] [place] TSH SerPl-aCncon 01-09-2023 TSH Qn 2.420 m[IU]/L Normal 0.270-4.200 [facility] Comment on above: Order Comment: Speci men Type: BLOOD SPECIMENOrdering Facility: [facility] Address: [address] [place] [address] Result Comment: If t he patient is , TSH reference range varies by gestational period: First Trimester (weeks 9-12): 0.180-2.990 mIU/L Second Trimester: 0.110-3.980 mIU/L Third Trimester: 0.480-4.710 mIU/L Kash Cr et al. A Practical Approach for the Verifications and Determination of Site- and Trimester-Specific Reference Intervals for Thyroid Function tests in . Thyroid, 2019:29:3:412-420. Dez E, et al. 2017 Guidelines of the [place] Thyroid Association for the Diagnosis and Management of Thyroid Disease during and the . Thyroid, 2017:27:3:315-389. Performed By: #### 2 4323-8, 2132-9, 3016-3, 2885-2 ####[facility] [id number] [place] [address] [place] VITAMIN B1 (THIAMINE), WHOLE BLOODon 01-09-2023 Thiamine (Bld) [Moles/Vol] 116.8 nmol/L Normal 84.3-213.3 [facility] Comment on above: Order Comment: Jonnathan jones Type: BLOOD SPECIMENOrdering Facility: [facility] Address: [address] [id number] Result Comment: This assay measures the concentration of thiamine diphosphate (TDP), the primary active form of vitamin B1. Approximately 90 percent of vitamin B1 present in whole blood is TDP. Thiamine and thiamine monophosphate, which comprise the remaining 10 percent, are not measured. This test was developed and its performance characteristics determined by [facility]'s [facility] Pathology and Laboratory Medicine [place] ([facility]). It has not been cleared or approved by the FDA. [facility] is regulated under CLIA as qualified to perform high-complexity testing. This test is used for clinical purposes. It should not be regarded as investigational or for research. Performed By: #### B 1WB ####[facility] LABIA [id number] [place] [address] [place] VITAMIN B6/PYRIDOXINon 01-09 VITAMIN B6 50.6 nmol/L Normal 20.0-125.0 [facility] Comment on above: Order Comment: Jonnathan jones Type: BLOOD SPECIMENOrdering Facility: [facility] Address: [address] [place], [place] [phone] Result Comment: INTE RPRETIVE INFORMATION: Vitamin B6 (Pyridoxal 5-Phosphate) Pyridoxal 5'-phosphate measured in a specimen collected following an 8-hour or overnight fast accurately indicates vitamin B6 nutritional status. Non-fasting specimen concentration reflects recent vitamin intake. This test was developed and its performance characteristics determined by [employer]. It has not been cleared or approved by the US Food and Drug Administration. This test was performed in a CLIA certified laboratory and is intended for clinical purposes. Performed By: [employer] [address] [place] [address] Monument Stonecutter: Abdiel Eisenberg MD, PhD CLIA Number: [id number] Performed By: #### V ITB6 ####[facility] [id number] [place] [address] Vit B12 [facility] 26-2 023 Cobalamin (Vitamin B12) [Mass/Vol] 214 pg/mL Low 232-1245 [facility] Comment on above: Order Comment: Speci men Type: BLOOD SPECIMENOrdering Facility: [facility] Address: [address] [place], [place] [phone] Performed By: #### 2 4323-8, 2132-9, 3016-3, 2885-2 ####[facility] LABCLIA [id number] [place] [address] [place] Vital Signs Date Time Vital Sign Value Performing Clinician Aurora hendricks 02-12-2024 10:54-0400 Body mass index (BMI) [Ratio] 40.97 kg/m2 Deana Tompkins APRN.CNP Work Phone: [facility] 02-12-2024 10:54-0400 Body temperature 100.4 [degF] Deana Tompkins APRN.CNP Work Phone: [facility] 02-12-2024 10:54-0400 Body weight 101.6 kg Deana Tompkins APRN.CNP Work Phone: [facility] 02-12-2024 10:54-0400 Diastolic blood pressure 82 mm[Hg] Deana Tompkins REGISTERED DIET TECHNICIAN.MICROSOFT ARCHITECT Work Phone: [facility] 02-12-2024 10:54-0400 Heart rate 112 /min Deana Tompkins REGISTERED DIET TECHNICIAN.MICROSOFT ARCHITECT Work Phone: [facility] 02-12-2024 10:54-0400 Respiratory rate 18 /min Deana Tompkins REGISTERED DIET TECHNICIAN.MICROSOFT ARCHITECT Work Phone: [facility] 02-12-2024 10:54-0400 SaO2% (BldA) [Mass fraction] 98 % Deana Tompkins REGISTERED DIET TECHNICIAN.MICROSOFT ARCHITECT Work Phone: [facility] 02-12-2024 10:54-0400 Systolic blood pressure 122 mm[Hg] Deana Tompkins REGISTERED DIET TECHNICIAN.MICROSOFT ARCHITECT Work Phone: [facility] 02-06-2024 14:08-0400 Diastolic blood pressure 80 mm[Hg] Sidney Boone MD Work Phone: [facility] 02-06-2024 14:08-0400 Heart rate 90 /min Sidney Boone MD Work Phone: [facility] 02-06-2024 14:08-0400 Respiratory rate 18 /min Sidney Boone MD Work Phone: [facility] 02-06-2024 14:08-0400 SaO2% (BldA) [Mass fraction] 100 % Sidney Boone MD Work Phone: [facility] 02-06-2024 14:08-0400 Systolic blood pressure 122 mm[Hg] Sidney Boone MD Work Phone: [facility] 02-06-2024 13:52-0400 Body temperature 97.2 [degF] Sidney Boone MD Work Phone: [facility] 01-30-2024 09:36-0400 Body height 157.5 cm Sidney Boone MD Work Phone: [facility] 01-30-2024 09:36-0400 Body mass index (BMI) [Ratio] 41.34 kg/m2 Sidney Boone MD Work Phone: [facility] 01-30-2024 09:36-0400 Body weight 102.51 kg Sidney Boone MD Work Phone: [facility] 01-30-2024 09:36-0400 Diastolic blood pressure 77 mm[Hg] Sidney Boone MD Work Phone: [facility] 01-30-2024 09:36-0400 Heart rate 72 /min Sidney Boone MD Work Phone: [facility] 01-30-2024 09:36-0400 Respiratory rate 18 /min Sidney Boone MD Work Phone: [facility] 01-30-2024 09:36-0400 Systolic blood pressure 131 mm[Hg] Sidney Boone MD Work Phone: [facility] 11-16-2023 13:00-0400 Diastolic blood pressure 80 mm[Hg] Ariel Guo MD Work Phone: [facility] 11-16-2023 13:00-0400 Heart rate 86 /min Ariel Guo MD Work Phone: [facility] 11-16-2023 13:00-0400 SaO2% (BldA) [Mass fraction] 100 % Ariel Guo MD Work Phone: [facility] 11-16-2023 13:00-0400 Systolic blood pressure 140 mm[Hg] Ariel Guo MD Work Phone: [facility] 11-16-2023 12:45-0400 Respiratory rate 18 /min Ariel Guo MD Work Phone: [facility] 11-16-2023 12:19-0400 Body temperature 98.4 [degF] Ariel Guo MD Work Phone: [facility] 09-21-2023 08:10-0400 Body mass index (BMI) [Ratio] 35.7 kg/m2 Ariel Guo MD Work Phone: [facility] 09-21-2023 08:10-0400 Body weight 99.79 kg Ariel Guo MD Work Phone: [facility] 09-05-2023 10:28-0400 Body mass index (BMI) [Ratio] 36.02 kg/m2 Hemalatha Gallegoer PA-C Work Phone: [facility] 09-05-2023 10:28-0400 Body weight 100.7 kg Hemalatha Gallegoer PA-C Work Phone: [facility] 09-05-2023 10:28-0400 Diastolic blood pressure 80 mm[Hg] Hemalatha Gallegoer PA-C Work Phone: [facility] 09-05-2023 10:28-0400 Heart rate 69 /min Hemalatha Gallegoer PA-C Work Phone: [facility] 09-05-2023 10:28-0400 Respiratory rate 18 /min Hemalatha Gallegoer PA-C Work Phone: [facility] 09-05-2023 10:28-0400 SaO2% (BldA) [Mass fraction] 100 % Hemalatha Glalegoer PA-C Work Phone: [facility] 09-05-2023 10:28-0400 Systolic blood pressure 121 mm[Hg] Hemalatha Gallegoer PA-C Work Phone: [facility] 08-31-2023 08:26-0400 Body mass index (BMI) [Ratio] 35.77 kg/m2 Zita Tamayo MD Work Phone: [facility] 08-31-2023 08:26-0400 Body weight 100 kg Zita Tamayo MD Work Phone: [facility] 08-31-2023 08:26-0400 Diastolic blood pressure 83 mm[Hg] Zita Tamayo MD Work Phone: [facility] 08-31-2023 08:26-0400 Heart rate 83 /min Zita Tamayo MD Work Phone: [facility] 08-31-2023 08:26-0400 Respiratory rate 18 /min Zita Tamayo MD Work Phone: [facility] 08-31-2023 08:26-0400 SaO2% (BldA) [Mass fraction] 99 % Zita Tamayo MD Work Phone: [facility] 08-31-2023 08:26-0400 Systolic blood pressure 128 mm[Hg] Zita Tamayo MD Work Phone: [facility] 10-04-2022 13:25-0400 Body weight 77.93 kg Hemalatha REYES-Maik Work Phone: [facility] 10-04-2022 13:25-0400 Respiratory rate 18 /min Hemalatha REYES-Maik Work Phone: [facility] 10-04-2022 13:25-0400 SaO2% (BldA) [Mass fraction] 99 % Hemalatha Anthony PA-C Work Phone: [facility] Encounters Encounter Date Encounter Type Care Provider Facility Start: 02-12-2024 End: 02-12-2024 Patient encounter procedure Deana Rachid JOHNSON.MICROSOFT ARCHITECT Work Phone: [facility] Comment on above: URI, acute (Primary Dx) Start: 02-07-2024 End: 02-07-2024 Telephone encounter Sidney Boone MD Work Phone: [facility] Comment on above: Patient Question Start: 02-06-2024 ambulatory SIDNEY BOONE Facility:[facility] Start: 02-06-2024 End: 02-06-2024 Preprocedural examination done Sidney Boone MD Work Phone: [facility] Work Phone: Start: 02-06-2024 End: 02-06-2024 Subsequent hospital visit by physician Sidney Boone MD Work Phone: [facility] Comment on above: Gastroesophageal ref lux disease, unspecified whether esophagitis present [K21.9], Gastroesophageal reflux disease, unspecified whether esophagitis present [K21.9] Start: 01-30-2024 End: 01-30-2024 Patient encounter procedure Sidney Boone MD Work Phone: [facility] Comment on above: Gastroesophageal ref lux disease, unspecified whether esophagitis present (Primary Dx); Regurgitation of food; Class 3 severe obesity due to excess calories without serious comorbidity with body mass index (BMI) of 40.0 to 44.9 in adult ([facility]) Start: 01-30-2024 End: 01-30-2024 ambulatory SIDNEY BOONE Facility:[facility] Start: 01-08-2024 End: 01-08-2024 Orders Only Sidney Boone MD Work Phone: [facility] Comment on above: Gastroesophageal ref lux disease, unspecified whether esophagitis present (Primary Dx) Start: 12-31-2023 End: 12-31-2023 ambulatory ARIEL GUO Facility:[facility] Start: 12-31-2023 End: 12-31-2023 Patient encounter procedure Ariel Guo MD Work Phone: General Surgery Comment on above: Gastroesophageal ref lux disease, unspecified whether esophagitis present (Primary Dx) Start: 12-31-2023 End: 12-31-2023 Telephone encounter Ariel Guo MD Work Phone: General Surgery Comment on above: Patient Update Start: 11-19-2023 End: 01-01-2024 Refill Hemalatha Anthony PA-C Work Phone: Neurology Comment on above: Refill Request Start: 11-19-2023 Telephone encounter Ariel vang MD Work Phone: General Surgery Comment on above: Patient Update Start: 11-18-2023 End: 11-18-2023 ambulatory NEELA LINO Facility:[facility] Start: 11-18-2023 End: 11-18-2023 Patient encounter procedure Jerome Allen APRN.CNP Work Phone: [facility] Comment on above: Procedure not abisai d out (Primary Dx) Start: 11-16-2023 ambulatory JIMBO JENNINGS Facility: [facility] Start: 11-16-2023 End: 11-16-2023 Subsequent hospital visit by physician Ariel Guo MD Work Phone: [facility] Comment on above: Gastroesophageal ref lux disease, unspecified whether esophagitis present [K21.9] Start: 09-21-2023 End: 09-21-2023 ambulatory ARIEL GUO Facility:[facility] Start: 09-21-2023 End: 09-21-2023 Patient encounter procedure Ariel Guo MD Work Phone: General Surgery Comment on above: Gastroesophageal ref lux disease, unspecified whether esophagitis present (Primary Dx) Start: 09-13-2023 Telephone encounter Ariel vang MD Work Phone: Orthopaedics Start: 09-05-2023 End: 09-05-2023 ambulatory HEMALATHA ESTHERWOODSAGRARIO Facility:[facility] Start: 09-05-2023 End: 09-05-2023 Patient encounter procedure Hemalatha Anthony PA-C Work Phone: Neurology Comment on above: Bilateral hand swell ing (Primary Dx); Sciatica of left side; Nausea; Obstructive sleep apnea; POTS (postural orthostatic tachycardia syndrome); Altered mental status, unspecified altered mental status type; Orthostatic hypotension; Other headache syndrome Start: 08-31-2023 End: 08-31-2023 ambulatory ZITA TAMAYO Facility:[facility] Start: 08-31-2023 End: 08-31-2023 Patient encounter procedure Zita Tamayo MD Work Phone: Allergy Comment on above: Adverse reaction to food, subsequent encounter (Primary Dx); Gastroesophageal reflux disease, unspecified whether esophagitis present; Chronic rhinitis; Other chronic allergic conjunctivitis of both eyes Start: 07-30-2023 ambulatory Hemalatha REYES-C Work Phone: Neurology Comment on above: [employer] Start: 06-26-2023 End: 06-26-2023 ambulatory HEMALATHA SAGRARIO Facility:[facility] Start: 06-15-2023 ambulatory Hemalatha REYES-C Work Phone: Neurology Comment on above: Overnight, pulse ox test for sleep apnea Start: 05-18-2023 End: 05-18-2023 ambulatory [facility] Facility:[facility] Start: 05-18-2023 End: 05-18-2023 Subsequent hospital visit by physician [facility] Work Phone: Nuclear Medicine Comment on above: Nausea [R11.0] Start: 05-09-2023 End: 05-09-2023 [facility] Start: 02-22-2023 Telephone encounter Hemalatha olivaresdebra PA-C Work Phone: Neurology Comment on above: metoprolol PA Start: 02-17-2023 ambulatory Hemalatha Gan r PA-C Work Phone: Neurology Comment on above: Propranolol Start: 01-09-2023 End: 01-09-2023 ambulatory [facility] Facility:[facility] Start: 12-22-2022 Telephone encounter Hemalatha garcia PA-C Work Phone: Neurology Comment on above: Results Start: 10-04-2022 End: 10-04-2022 Patient encounter procedure Hemalatha Anthony PA-C Work Phone: Neurology Comment on above: Orthostatic hypotens ion (Primary Dx) Start: 09-14-2022 Telephone encounter Neurology Provid er Neurology Comment on above: Consult Start: 08-03-2021 End: 08-03-2021 Patient encounter procedure Krysten Giraldo APRN.MICROSOFT ARCHITECT Work Phone: [facility] Comment on above: Injury of head, init ial encounter (Primary Dx) Procedures Date Procedure Procedure Detail Performing Clinician Start: 02-12-2024 STREP A MOLECULAR (POC) Deana Tompkins APRN.MICROSOFT ARCHITECT Work Phone: Start: 02-06-2024 Esophagoscp rig transoral hypopharynx crv nisha Boone MD Work Phone: Start: 02-06-2024 Urine test visual color cmprsn abby Magaña REGISTERED DIET TECHNICIAN.MICROSOFT ARCHITECT Work Phone: Start: 11-16-2023 Esophagogastroduodenoscopy transoral diagnostic Mnose Chapin APRN.MICROSOFT ARCHITECT Work Phone: Start: 08-31-2023 ALLERGEN SKIN TEST-INHALENT 40 Zita smith MD Work Phone: Start: 05-18-2023 Gastric emptying imaging study Hemalatha sol PA-C Work Phone: Plan of Treatment Date Care Activity Detail Author Start: 12-07-2024 Urine microalbumin profile DTaP,Tdap,Td Vaccine (6 - Td or Tdap) [facility] Start: 03-18-2024 End: 03-18-2024 Patient encounter procedure 03/18/2024 10:00 AM EST Office Visit Neurology [address] [place], [place] [id number] Hemalatha Anthony PA-C [address] [place] [address] 6 month follow up Neurology Comment on above: 6 month follow up Start: 02-18-2024 End: 02-18-2024 Patient encounter procedure 02/18/2024 1:00 PM EST Office Visit General Surgery [address] [place] [address] Ariel Guo MD [address] [place] [address] esophageal manometry & a PH IONSERT OFF MEDS f/u 02/05 General Surgery Comment on above: esophageal manometry & a PH IONSERT OFF MEDS f/u 02/05 Start: 02-06-2024 End: 02-06-2024 Egd transoral biopsy single/multiple EGD WITH BIOPSY Gastroesophageal reflux disease, unspecified whether esophagitis present 02/06/2024 1:30 PM EDT [facility] Start: 02-06-2024 End: 02-06-2024 Gastroesophag reflx test w/telemtry ph eltrd ESOPHAGEAL ACID REFLUX TEST W/MUCOSAL ATTACHED TELEMETRY PH ELECTRODE PLACEMENT RECORDING, ANALYSIS, & INTERPRETATION [] Gastroesophageal reflux disease, unspecified whether esophagitis present 02/06/2024 1:30 PM EDT [facility] Start: 02-06-2024 End: 02-06-2024 Admission to same day surgery center BRIANDA CELESTIN Comment on above: ESOPHAGEAL MANOMETRY EGD WITH BIOPSY Start: 02-06-2024 End: 02-06-2024 Esophageal motility study w/interp&rpt ESOPHAGEAL MANOMETRY Gastroesophageal reflux disease, unspecified whether esophagitis present 02/06/2024 12:30 PM EDT BRIANDA CELESTIN Start: 02-06-2024 Subsequent hospital visit by physician BRIANDA CELESTIN Comment on above: Gastroesophageal reflux disease, unspeci fied whether esophagitis present [K21.9], Gastroesophageal reflux disease, unspecified whether esophagitis present [K21.9] Start: 01-30-2024 End: 01-30-2024 Patient encounter procedure 01/30/2024 9:45 AM EDT Office Visit [facility] 1 [facility] [address] [place] [address] Sidney Boone MD [address] [phone] HBC-referral from Dr. Guo for EGD/Smalls/mano--testing scheduled 02/06/24 [facility] Comment on above: HBC-referral from Dr. Guo for EGD/Br shilpa/mano--testing scheduled 02/06/24 Start: 12-16-2023 Covid-19 Vaccine ( season) Covid-19 Vaccine ( season) [facility] Start: 12-16-2023 Covid-19 Vaccine ( season) Covid-19 Vaccine ( season) [facility] Start: 12-16-2023 Influenza vaccination [facility] Start: 12-03-2023 End: 12-03-2023 Patient encounter procedure 12/03/2023 9:30 AM EDT Office Visit Allergy [address] [address] Mario Ansari MD [address] [place] [address] 3 month follow up Allergy Comment on above: 3 month follow up Start: 11-16-2023 End: 11-16-2023 Patient encounter procedure 11/16/2023 3:45 PM EDT Appointment [facility] [address] [place] [address] Ariel Guo MD [address] [place] [address] egd [facility] Comment on above: egd Start: 09-19-2023 End: 09-19-2023 ambulatory 09/19/2023 10:45 AM EDT OT/PT/Speech Visit [facility] [address] [place] [address] Primitivo Kelly, PT [address] [place] [address] Sciatica of left side [M54.32] [facility] Comment on above: Sciatica of left side [M54.32] Start: 09-05-2023 End: 12-05-2023 KARINA BY IFA WITH REFLEX [facility] Work Phone: Comment on above: Expected: 09/05/2023, Expires: Start: 09-05-2023 End: 09-05-2023 Patient encounter procedure 09/05/2023 10:30 AM EDT Office Visit Neurology [address] [place] [address] Hemalatha Anthony PA-C [address] [place] [address] 3 mo Follow up Neurology Comment on above: 3 mo Follow up Start: 04-16-2023 Behavioral Health Screening Behavioral Health Screening [facility] Start: 04-16-2023 Depression Assessment Depression Assessment [facility] Start: 12-15-2022 Covid-19 Vaccine () Covid-19 Vaccine () [facility] Start: 12-15-2022 Influenza vaccination [facility] Start: 2022 PAP TESTING PAP TESTING [facility] Start: 2022 Screening for malignant neoplasm of cervix [facility] Start: 04-16-2022 DEPRESSION ASSESSMENT DEPRESSION ASSESSMENT [facility] Start: 12-15-2021 Influenza vaccination INFLUENZA (Season Ended) [facility] Start: 02-21-2021 COVID-19 VACCINE (3 - Booster for Pfizer series) COVID-19 VACCINE (3 - Booster for Pfizer series) [facility] Start: 11-16-2020 COVID-19 VACCINE (3 - Booster for Pfizer series) COVID-19 VACCINE (3 - Booster for Pfizer series) [facility] Start: 11-16-2020 COVID-19 VACCINE (3 - Pfizer series) COVID-19 VACCINE (3 - Pfizer series) [facility] Start: 10-04-2019 Anxiety Screening Anxiety Screening [facility] Start: 10-04-2019 CHLAMYDIA SCREENING (18-24) CHLAMYDIA SCREENING (18-24) [facility] Start: 10-04-2019 Depression Screening Depression Screening [facility] Start: 10-04-2019 GC (GONORRHEA) SCREENING (18-24) GC (GONORRHEA) SCREENING (18-24) [facility] Start: 10-04-2019 HEPATITIS C SCREENING HEPATITIS C SCREENING [facility] Start: 10-04-2019 Hepatitis C screening Hepatitis C Screening [facility] Start: 10-04-2019 HIV SCREENING HIV SCREENING [facility] Start: 10-04-2019 HIV screening HIV Screening [facility] Start: 10-04-2019 Screening for Chlamydia trachomatis Chlamydia Screening (18-24) [facility] Start: 2017 Meningococcal B Vaccine: Consider Based On Risk (1 of 2 - Patient Seeks Protection) Meningococcal B Vaccine: Consider Based On Risk (1 of 2 - Patient Seeks Protection) [facility] Start: 2017 MENINGOCOCCAL B: Consider based on risk (1 of 2 - Patient Seeks Protection) MENINGOCOCCAL B: Consider based on risk (1 of 2 - Patient Seeks Protection) [facility] Start: 2016 HPV Vaccine (1 - 3-dose series) HPV Vaccine (1 - 3-dose series) [facility] Start: 10-04-2015 PEDS TO ADULT TRANSITION ANNUAL ASSESSMENT PEDS TO ADULT TRANSITION ANNUAL ASSESSMENT [facility] Start: 2013 Adult depression screening assessment DEPRESSION SCREENING [facility] Start: 2013 PEDS TO ADULT TRANSITION INITIAL DISCUSSION PEDS TO ADULT TRANSITION INITIAL DISCUSSION [facility] Start: 2012 HPV VACCINE (1 - 2-dose series) HPV VACCINE (1 - 2-dose series) [facility] Start: 2012 Urine microalbumin profile [facility] Start: 10-04-2011 MENINGOCOCCAL B: Consider based on risk (1 of 2 - Risk Bexsero 2-dose series) MENINGOCOCCAL B: Consider based on risk (1 of 2 - Risk Bexsero 2-dose series) [facility] Start: 2010 HPV VACCINE (1 - 2-dose series) HPV VACCINE (1 - 2-dose series) [facility] Start: 10-04-2007 PNEUMOCOCCAL (1 - PCV) PNEUMOCOCCAL (1 - PCV) [facility] ic Cardiovascular funct ion eval w/tilt table w/mntr TILT TABLE EVALUATION Cardiology Routine Orthostatic hypotension Ordered: 10/04/2022 [facility] Work Phone: Comment on above: Ordered: 10/04/2022 COVID & INFLUENZA A/ B & RSV PCR, ROUTINE COVID & INFLUENZA A/B & RSV PCR, ROUTINE Microbiology Routine URI, acute 02/12/2024 11:47 AM EDT [facility] Work Phone: End: 09-20-2024 EGD DIAGNOSTIC EGD DIAGNOSTIC Endoscopy Routine Gastroesophageal reflux disease, unspecified whether esophagitis present 1 Occurrences starting 09/21/2023 until 09/20/2024 [facility] Work Phone: Comment on above: 1 Occurrences starting 09/21/2023 until 09/20/2024 Egd transoral biopsy single/multiple EGD WITH BIOPSY Gastroesophageal reflux disease, unspecified whether esophagitis present [facility] Esophageal motility study w/interp&rpt ESOPHAGEAL MANOMETRY Gastroesophageal reflux disease, unspecified whether esophagitis present [facility] Gastroesophag reflx test w/telemtry ph eltrd ESOPHAGEAL ACID REFLUX TEST W/MUCOSAL ATTACHED TELEMETRY PH ELECTRODE PLACEMENT RECORDING, ANALYSIS, & INTERPRETATION [] Gastroesophageal reflux disease, unspecified whether esophagitis present [facility] H&P for surgery H&P FOR SURGERY Procedures Routine Gastroesophageal reflux disease, unspecified whether esophagitis present Ordered: 01/08/2024 [facility] Work Phone: Comment on above: Ordered: 01/08/2024 End: 12-30-2024 Manometry Study observation Narrative MANOMETRY ESOPHAGEAL Endoscopy Routine Gastroesophageal reflux disease, unspecified whether esophagitis present 1 Occurrences starting 12/31/2023 until 12/30/2024 [facility] Work Phone: Comment on above: 1 Occurrences starting 12/31/2023 until 12/30/2024 Manometry Study observation Narrative MANOMETRY ESOPHAGEAL FUNCTION W/IMPEDANCE Endoscopy Routine Gastroesophageal reflux disease, unspecified whether esophagitis present Ordered: 01/30/2024 [facility] Work Phone: Comment on above: Ordered: 01/30/2024 End: 12-30-2024 PH INSERT OFF MEDS PH INSERT OFF MEDS Endoscopy Routine Gastroesophageal reflux disease, unspecified whether esophagitis present 1 Occurrences starting 12/31/2023 until 12/30/2024 [facility] Comment on above: 1 Occurrences starting 12/31/2023 until 12/30/2024 SURGICAL PATHOLOGY [facility] Work Phone: Comment on above: Release Upon Ordering for 1 Occurrences starting 11/16/2023, 1 completed SURGICAL PATHOLOGY SURGICAL PATH OLOGY Lab Routine Gastroesophageal reflux disease, unspecified whether esophagitis present Release Upon Ordering for 1 Occurrences starting 02/06/2024 [facility] Work Phone: Comment on above: Release Upon Ordering for 1 Occurrences starting 02/06/2024 [facility] Immunizations Immunization Date Immunization Notes Care Provider Sar[facility] 01-19-2022 influenza virus vaccine, unspecified formulation Hemalatha Anthony PA-C Work Phone: [facility] 10-11-2007 measles, mumps and rubella virus vaccine Krysten Giraldo APRN.MICROSOFT ARCHITECT Work Phone: [facility] Work Phone: 10-11-2007 varicella virus vaccine Vanessa Giraldo APRN.MICROSOFT ARCHITECT Work Phone: [facility] Work Phone: 05-10-2006 DTaP-hepatitis B and poliovirus vaccine Krysten Giraldo APRN.MICROSOFT ARCHITECT Work Phone: [facility] Work Phone: 05-10-2006 pneumococcal conjuga te vaccine, 7 valent Krysten Giraldo APRN.MICROSOFT ARCHITECT Work Phone: [facility] Work Phone: 05-10-2006 varicella virus vaccine Vanessa Giraldo APRN.MICROSOFT ARCHITECT Work Phone: [facility] Work Phone: 03-27-2005 diphtheria, tetanus toxoids and acellular pertussis vaccine Krysten Giraldo APRN.MICROSOFT ARCHITECT Work Phone: [facility] Work Phone: 03-27-2005 haemophilus influenz ae type b vaccine, HbOC conjugate Krysten Giraldo APRN.MICROSOFT ARCHITECT Work Phone: [facility] Work Phone: 03-27-2005 measles, mumps and rubella virus vaccine Krysten Giraldo APRN.MICROSOFT ARCHITECT Work Phone: [facility] Work Phone: 03-27-2005 pneumococcal conjuga te vaccine, 7 valent Krysten Giraldo APRN.MICROSOFT ARCHITECT Work Phone: [facility] Work Phone: 02-22-2002 haemophilus influenz ae type b vaccine, HbOC conjugate Krysten Giraldo APRN.MICROSOFT ARCHITECT Work Phone: [facility] 02-07-2002 diphtheria, tetanus toxoids and acellular pertussis vaccine Krysten Giraldo APRN.MICROSOFT ARCHITECT Work Phone: [facility] 02-07-2002 pneumococcal conjuga te vaccine, 7 valent Krysten Giraldo APRN.MICROSOFT ARCHITECT Work Phone: [facility] 02-07-2002 poliovirus vaccine, inactivated Krysten Giraldo APRN.MICROSOFT ARCHITECT Work Phone: [facility] 2001 diphtheria, tetanus toxoids and acellular pertussis vaccine Krysten Giraldo APRN.MICROSOFT ARCHITECT Work Phone: [facility] 2001 haemophilus influenz ae type b vaccine, HbOC conjugate Krysten Giraldo APRN.MICROSOFT ARCHITECT Work Phone: [facility] 2001 hepatitis B vaccine, pediatric or pediatric/adolescent dosage Krysten Enzo REGISTERED DIET TECHNICIAN.MICROSOFT ARCHITECT Work Phone: [facility] 2001 poliovirus vaccine, inactivated Krysten Giraldo REGISTERED DIET TECHNICIAN.MICROSOFT ARCHITECT Work Phone: [facility] 2001 hepatitis B vaccine, pediatric or pediatric/adolescent dosage Krysten Enzo REGISTERED DIET TECHNICIAN.MICROSOFT ARCHITECT Work Phone: [facility] Payers Date Payer Category Payer Unknown [employer] [place] [employer] [id number] 2023-Present [phone] [address] [place] [address] PPO [id number] 2023 Unknown [id number] 2022 Medicaid [employer] [id number] 2022-Present [phone] [address] [place] [address] Medicaid [id number] 2022 Medicaid [id number] 2018 Private Health Insurance [facility] UMR CHOICE PLUS [id number] 2018-Present [phone] [address] [address] [place] [address] O [id number] 2018 Private Health Insurance [facility] UMR CHOICE PLUS [id number] 2018-Present [phone] [address] [address] [place] [address] O [id number] 2018 Unknown [id number] Social History Date Type Detail Facility [facility] Work Phone: Start: 06-29-2009 End: 01-30-2024 Alcohol intake Not Asked [facility] Start: 2001 Sex Assigned At Not on file [facility] Start: 07-24-2021 End: 08-03-2021 Exposure to SARS-CoV-2 (event) Not sure [facility] Work Phone: Start: 10-04-2022 [facility] History of tobacco use Current smoker [facility] History of tobacco use Cigarette Smoker [facility] Start: 10-04-2022 End: 09-21-2023 Tobacco use and exposure Smokeless tobacco non-user [facility] Start: 10-04-2022 End: 09-05-2023 History of Social function [facility] Start: 10-04-2022 End: 09-05-2023 Tobacco use panel [facility] National Score (1-10 0), lower number is lower risk 99 [facility] Start: 09-21-2023 Tobacco smoking stat [facility] Never smoked tobacco [facility] Start: 02-06-2024 End: 02-12-2024 Alcoholic beverage intake Ex-drinker (finding) [facility] Clinical Notes 08-03-2021 to 02-12-2024 Addendum Note - Deana Tompkins APRN.CNP - 02/12/2024 11:32 AM EDTAddendum Note - Deana Tompkins APRN.CNP - 02/12/2024 11:32 AM EDDeana Silverio APRN.CNP - 02/12/2024 11:06 AM EDT Note Date & Type Note Facility 02-12-2024 Note Addended by: DEANA TOMPKINS on: 02/12/2024 11:32 AM Modules accepted: Orders [facility] 02-12-2024 Miscellaneous Notes Addended by: DEANA TOMPKINS on: 02/12/2024 11:32 AM Modules accepted: Orders documented in this encounter [facility] 02-12-2024 History of Present illness Narrative This note was created using Ynvisibleriter. Subjective Ace Leonardo is a 23 year old female. 23 year old female with no significant PMH presents for illness. Acute onset yesterday +headache +sore throat +nausea +congestion +body aches +diarrhea Denies cough Denies CP Utilized x 2 OTC cold medicine Tea with honey Cough drops Denies tobacco usage. The history is provided by the patient. No sales agent food vending service was used. Sore Throat This is a new problem. The current episode started yesterday. The problem has been unchanged. There has been no fever. The pain is at a severity of 3/10. Associated symptoms include congestion and swollen glands. Pertinent negatives include no abdominal pain, coughing, diarrhea, drooling, ear discharge, ear pain, headaches, hoarse voice, plugged ear sensation, neck pain, shortness of breath, stridor, trouble swallowing or vomiting. She has had no exposure to strep or mono. Treatments tried: see HPI. The treatment provided mild relief. History reviewed. No pertinent past medical history. PAST SURGICAL HISTORY Procedure Laterality Date EGD W/O [facility] SPEC VARICIES INJ 11/16/2023 ALLERGIES Patient has no known allergies. MEDICATIONS metoprolol succinate ER (TOPROL XL) 25 mg 24 hr tablet take 1 tablet by mouth every day (Patient taking differently: Take 50 mg by mouth once daily.) L-norgest/e.estradiol-e.estrad (JAIMIESS ORAL) mecobalamin, vitamin B12, (B12 ACTIVE) 1,000 mcg chew omeprazole (PRILOSEC) 40 mg capsule omeprazole (PRILOSEC) 20 mg capsule Takes 40mg before breakfast and 20mg before dinner cetirizine (ZYRTEC) 10 mg tablet Take 1 tablet by mouth once daily. atomoxetine (STRATTERA) 40 mg capsule Take 40 mg by mouth once daily. Fluticasone Furoate (FLONASE SENSIMIST) 27.5 mcg/actuation nasal spray Use 1 Morley in each nostril two times a day. ketotifen fumarate (ZADITOR) 0.025 % (0.035 %) ophthalmic solution Use 1 Drop in both eyes two times a day as needed. FAMILY HISTORY Problem Relation Age of Onset Seizures Maternal Grandmother Heart Unknown maternal and paternal side Hypertension Unknown maternal great mother Cancer Unknown brain cancer- maternal great aunt other (hearing problems [Other]) Unknown maternal grandmother Social History Tobacco Use Smoking status: Never Smokeless tobacco: Never Vaping Use Vaping status: Never Used Substance Use Topics Alcohol use: Not Currently Drug use: Never Review of Systems Constitutional: Positive for activity change and appetite change. HENT: Positive for congestion and sore throat. Negative for drooling, ear discharge, ear pain, hoarse voice and trouble swallowing. Respiratory: Negative for cough, shortness of breath and stridor. Cardiovascular: Negative for chest pain, palpitations and leg swelling. Gastrointestinal: Negative for abdominal pain, diarrhea and vomiting. Musculoskeletal: Negative for neck pain. Neurological: Negative for headaches. Hematological: Positive for adenopathy. Does not bruise/bleed easily. Psychiatric/Behavioral: Negative for agitation and behavioral problems. Objective BP 122/82 Pulse 112 Temp (!) 38 C (100.4 F) (Tympanic) Resp 18 Wt 101.6 kg (223 lb 15.8 oz) LMP (LMP Unknown) SpO2 98% BMI 40.97 kg/m Physical Exam Vitals and nursing note reviewed. Constitutional: General: She is not in acute distress. Appearance: Normal appearance. She is normal weight. She is not ill-appearing, toxic-appearing or diaphoretic. HENT: Head: Normocephalic and atraumatic. Right Ear: Ear canal and external ear normal. Left Ear: Ear canal and external ear normal. Nose: Nose normal. No congestion or rhinorrhea. Mouth/Throat: Mouth: Mucous membranes are moist. Pharynx: Posterior oropharyngeal erythema present. No oropharyngeal exudate. Eyes: General: Right eye: No discharge. Left eye: No discharge. Extraocular Movements: Extraocular movements intact. Conjunctiva/sclera: Conjunctivae normal. Pupils: Pupils are equal, round, and reactive to light. Cardiovascular: Rate and Rhythm: Normal rate and regular rhythm. Pulses: Normal pulses. Heart sounds: Normal heart sounds. No murmur heard. No friction rub. Pulmonary: Effort: Pulmonary effort is normal. No respiratory distress. Breath sounds: Normal breath sounds. No stridor. No wheezing, rhonchi or rales. Chest: Chest wall: No tenderness. Abdominal: General: Abdomen is flat. There is no distension. Palpations: Abdomen is soft. There is no mass. Tenderness: There is no abdominal tenderness. There is no right CVA tenderness, left CVA tenderness, guarding or rebound. Hernia: No hernia is present. Musculoskeletal: General: No swelling, tenderness, deformity or signs of injury. Normal range of motion. Cervical back: Normal range of motion and neck supple. No rigidity. Right lower leg: No edema. Left lower leg: No edema. Lymphadenopathy: Cervical: Cervical adenopathy present. Skin: General: Skin is warm and dry. Coloration: Skin is not jaundiced or pale. Findings: No bruising, erythema, lesion or rash. Neurological: General: No focal deficit present. Mental Status: She is alert and oriented to person, place, and time. Cranial Nerves: No cranial nerve deficit. Sensory: No sensory deficit. Motor: No weakness. Coordination: Coordination normal. Gait: Gait normal. Psychiatric: Mood and Affect: Mood normal. Behavior: Behavior normal. Thought Content: Thought content normal. Judgment: Judgment normal. Assessment and Plan ASSESSMENT/PLAN: 1. URI, acute - ICD9: 465.9, ICD10: J06.9 - Discussed viral etiology and rationale for treatment. - Group A strep molecular testing negative - Symptomatic treatment with prn analgesia - Supportive care with fluids and rest - The patient may also use OTC cough and cold meds as needed, warm salt water gargles, throat lozenges and/or OTC throat spray as needed, and nasal saline gtts and suction prn. - Follow up in 3-5 days if symptoms persist or sooner if worsening of symptoms - STREP A MOLECULAR (POC) Deana Tompkins APRN.MICROSOFT ARCHITECT documented in this encounter [facility] 02-07-2024 Telephone encounter Note Patient sent a [employer] message about the [employer] protective clothing issuer so I called her for more information. Ace said that the protective clothing issuer has disconnected about 5 times since last night, even though it is sitting on my lap. It does reconnect . Patient states the red light flashes and it beeps when it is disconnected but it will reconnect itself. Currently the protective clothing issuer is connected. Patient is using the lanyard or keeping the protective clothing issuer in her lap. Patient states she can feel the Smalls capsule in her throat. I asked the patient to try to ride it out until tomorrow afternoon, when the test should be completed, as I believe the protective clothing issuer is still working. I did tell her that if the protective clothing issuer starts beeping continuously then put it in another room or her car so it does not keep her awake overnight. Patient agreed with the plan. I gave the patient my contact information. Remigio Villar RN [facility] 02-07-2024 Miscellaneous Notes Patient sent a [employer] message about the Smalls protective clothing issuer so I called her for more information. Ace said that the protective clothing issuer has disconnected about 5 times since last night, even though it is sitting on my lap. It does reconnect . Patient states the red light flashes and it beeps when it is disconnected but it will reconnect itself. Currently the protective clothing issuer is connected. Patient is using the lanyard or keeping the protective clothing issuer in her lap. Patient states she can feel the Smalls capsule in her throat. I asked the patient to try to ride it out until tomorrow afternoon, when the test should be completed, as I believe the protective clothing issuer is still working. I did tell her that if the protective clothing issuer starts beeping continuously then put it in another room or her car so it does not keep her awake overnight. Patient agreed with the plan. I gave the patient my contact information. Remigio Villar RN documented in this encounter [facility] 02-06-2024 Nurse Note This patient was taken into the procedure room. Informed consent was verified and all the allergies reviewed prior to the procedure. The manometry catheter was inserted to the left nares without difficulty. This patient denies any injuries or surgeries .This patient denied any use of blood thinner and/ or muscle relaxants. This patient was informed of potential nasal congestion and minimal nasal bleeding. This patient tolerated this procedure well. [facility] 02-06-2024 Nurse Note This patient was taken into the procedure room. Informed consent was verified and all the allergies reviewed prior to the procedure. The manometry catheter was inserted to the left nares without difficulty. This patient denies any injuries or surgeries .This patient denied any use of blood thinner and/ or muscle relaxants. This patient was informed of potential nasal congestion and minimal nasal bleeding. This patient tolerated this procedure well. documented in this encounter [facility] 02-06-2024 History and physical note HISTORY AND PHYSICAL EXAMINATION SERVICE DATE: 02/06/2024 SERVICE TIME: 11:45 AM PRIMARY CARE PHYSICIAN: Neela Lino MD, MD REASON FOR VISIT: The reason for this visit is To perform a comprehensive review of the patients past medical history, assess their current health status and obtain any additional testing required based on anesthesia guidelines. To assess and identify potential anesthesia problems, particularly those that may suggest potential complications or contraindications to the planned procedure. The patient has the following: ACTIVE PROBLEM LIST Gastroesophageal Reflux Disease Dizziness Headache Postural Orthostatic Tachycardia Syndrome (Pots) Pre-Op Examination Mirta (Obstructive Sleep Apnea) Obesity, Class III, BMI >= 40 Subjective CHIEF COMPLAINT: Preoperative Examination HPI: Patient present to [facility] for the above procedure. Patient here for routine Upper GI Endoscopy screening. Patient states that her last EGD was in November. Patient denies any N/V/D or constipation. Denies any abdominal pain. Denies any melena, hematochezia, or hematemesis. Patient denies any other problems at this time. Endorses family history of esophageal cancer in paternal grandfather. Patient is agreeable to planned procedure. METS: Walk a block or two on level ground (2.75 METs) Patient denies any CP/SOB with above activity. History reviewed. No pertinent past medical history. PAST SURGICAL HISTORY Procedure Laterality Date EGD W/O [facility] SPEC VARICIES INJ 11/16/2023 FAMILY HISTORY Problem Relation Age of Onset Seizures Maternal Grandmother Heart Unknown maternal and paternal side Hypertension Unknown maternal great mother Cancer Unknown brain cancer- maternal great aunt other (hearing problems [Other]) Unknown maternal grandmother SOCIAL HISTORY: Social History Tobacco Use Smoking status: Never Smokeless tobacco: Never Vaping Use Vaping status: Never Used Substance Use Topics Alcohol use: Not Currently Drug use: Never Prior to Admission medications as of 02/06/24 1149 Medication Sig Last Dose Taking metoprolol succinate ER (TOPROL XL) 25 mg 24 hr tablet take 1 tablet by mouth every day Patient taking differently: Take 50 mg by mouth once daily. 02/05/2024 at 1400 Yes L-norgest/e.estradiol-e.estrad (JAIMIESS ORAL) 02/05/2024 at 1400 Yes mecobalamin, vitamin B12, (B12 ACTIVE) 1,000 mcg chew 02/05/2024 at 1400 Yes cetirizine (ZYRTEC) 10 mg tablet Take 1 tablet by mouth once daily. 02/05/2024 at 1000 Yes atomoxetine (STRATTERA) 40 mg capsule Take 40 mg by mouth once daily. omeprazole (PRILOSEC) 40 mg capsule 01/30/2024 omeprazole (PRILOSEC) 20 mg capsule Takes 40mg before breakfast and 20mg before dinner 01/30/2024 Fluticasone Furoate (FLONASE SENSIMIST) 27.5 mcg/actuation nasal spray Use 1 Morley in each nostril two times a day. ketotifen fumarate (ZADITOR) 0.025 % (0.035 %) ophthalmic solution Use 1 Drop in both eyes two times a day as needed. No medication comments found. ALLERGIES No Known Allergies REVIEW OF SYSTEMS: PAIN ASSESSMENT: Pain Pain Level: 0 Pain Assessment: Assessment Tool: Verbal (Numeric Rating or Visual Analog Scale) General: Denies fever, chills, and unexpected weight change. Neuro: Denies dizziness and headaches. Respiratory: Denies SOB. +MIRTA Cardiovascular: Denies CP and palpitations. +POTS GI: See HPI. : Denies dysuria. Endocrine: No history of diabetes or thyroid conditions. Hematology: Denies history of bleeding or clotting disorder. No known autoimmune disorders. Psych: Denies anxiety/depression. Musculoskeletal: Denies joint pain and swelling. Skin: Denies open sores and rashes. Objective PHYSICAL EXAM: VITALS: BP 124/82 Pulse 88 Temp (Src) 98.3 (Temporal) Resp 19 SpO2 100% O2 Therapy: Room Air General: NAD. Cooperative. Skin: Skin is warm, no rashes, and no open sores. HEENT: Normocephalic. Cardiovascular: Normal S1 & S2. No murmur. Lungs: CTA Bilaterally. No respiratory distress. Abdomen: Soft. Pos BS x4quad Extremities: No edema. Neurological: Alert and oriented to person, place, and time. Pulses: radial pulses +2 Diagnostic tests reviewed for today's visit: Lab Value Units Date High Low HB No results within date range. HCT No results within date range. WBC No results within date range. PLT No results within date range. NA No results within date range. K No results within date range. GLUC No results within date range. BUN No results within date range. CREAT No results within date range. PTSEC No results within date range. INR No results within date range. APTT No results within date range. ALT No results within date range. AST No results within date range. TBILI No results within date range. TSH No results within date range. Lab Value Units Date High Low HCGQT No results within date range. UHCG No results within date range. HCG, BODY* No results within date range. Lab Value Units Date High Low ABORHD No results within date range. ABSCREEN No results within date range. Hemoglobin A1C (%) Date Value 01/09/2023 5.0 Assessment/Plan Patient has the following medical conditions which may affect jack-operative course Pre-Op Exam: see note for medical conditions which may affect jack-operative course that were addressed at today's visit. MIRTA: No machine. Patient states that she was prescribed allergy medication for this. POTS: Metoprolol- last dose taken yesterday. Follows with Neurology- last OV 09/05/23. Obesity, Class III, BMI >= 40: BMI 41.34 GERD: EGD today. Omeprazole- last dose taken 01/30/24. Diagnosis: Gastroesophageal reflux disease, unspecified whether esophagitis present [K21.9] Gastroesophageal reflux disease, unspecified whether esophagitis present [K21.9] Planned Procedure: Procedure(s): EGD WITH BIOPSY (Left) ESOPHAGEAL ACID REFLUX TEST W/MUCOSAL ATTACHED TELEMETRY PH ELECTRODE PLACEMENT RECORDING, ANALYSIS, & INTERPRETATION [] (N/A) The Following Tests/Procedures Have Been Initiated: IV start and Maintenance fluid for the procedure. ANESTHESIA FINDINGS: Significant Anesthesia Considerations: Postop nausea/vomiting Planned Anesthetic: MAC I spent a total of 20 minutes on the date of the service which included preparing to see the patient, [id number] patient care, completing clinical documentation, and performing a medically appropriate examination. Instructions Given to Patient: Patient given verbal preop instructions and voices comprehension and compliance. SIGNATURE: Karly Magaña APRN.CNP PATIENT NAME: Ace Leonardo DATE: February 06, 2024 TIME: 11:21 AM PAGER/CONTACT #: [facility] 02-06-2024 History and physical note HISTORY AND PHYSICAL EXAMINATION SERVICE DATE: 02/06/2024 SERVICE TIME: 11:45 AM PRIMARY CARE PHYSICIAN: Neela Lino MD, MD REASON FOR VISIT: The reason for this visit is To perform a comprehensive review of the patients past medical history, assess their current health status and obtain any additional testing required based on anesthesia guidelines. To assess and identify potential anesthesia problems, particularly those that may suggest potential complications or contraindications to the planned procedure. The patient has the following: ACTIVE PROBLEM LIST Gastroesophageal Reflux Disease Dizziness Headache Postural Orthostatic Tachycardia Syndrome (Pots) Pre-Op Examination Mirta (Obstructive Sleep Apnea) Obesity, Class III, BMI >= 40 Subjective CHIEF COMPLAINT: Preoperative Examination HPI: Patient present to [facility] for the above procedure. Patient here for routine Upper GI Endoscopy screening. Patient states that her last EGD was in November. Patient denies any N/V/D or constipation. Denies any abdominal pain. Denies any melena, hematochezia, or hematemesis. Patient denies any other problems at this time. Endorses family history of esophageal cancer in paternal grandfather. Patient is agreeable to planned procedure. METS: Walk a block or two on level ground (2.75 METs) Patient denies any CP/SOB with above activity. History reviewed. No pertinent past medical history. PAST SURGICAL HISTORY Procedure Laterality Date EGD W/O [facility] SPEC VARICIES INJ 11/16/2023 FAMILY HISTORY Problem Relation Age of Onset Seizures Maternal Grandmother Heart Unknown maternal and paternal side Hypertension Unknown maternal great mother Cancer Unknown brain cancer- maternal great aunt other (hearing problems [Other]) Unknown maternal grandmother SOCIAL HISTORY: Social History Tobacco Use Smoking status: Never Smokeless tobacco: Never Vaping Use Vaping status: Never Used Substance Use Topics Alcohol use: Not Currently Drug use: Never Prior to Admission medications as of 02/06/24 1149 Medication Sig Last Dose Taking metoprolol succinate ER (TOPROL XL) 25 mg 24 hr tablet take 1 tablet by mouth every day Patient taking differently: Take 50 mg by mouth once daily. 02/05/2024 at 1400 Yes L-norgest/e.estradiol-e.estrad (JAIMIESS ORAL) 02/05/2024 at 1400 Yes mecobalamin, vitamin B12, (B12 ACTIVE) 1,000 mcg chew 02/05/2024 at 1400 Yes cetirizine (ZYRTEC) 10 mg tablet Take 1 tablet by mouth once daily. 02/05/2024 at 1000 Yes atomoxetine (STRATTERA) 40 mg capsule Take 40 mg by mouth once daily. omeprazole (PRILOSEC) 40 mg capsule 01/30/2024 omeprazole (PRILOSEC) 20 mg capsule Takes 40mg before breakfast and 20mg before dinner 01/30/2024 Fluticasone Furoate (FLONASE SENSIMIST) 27.5 mcg/actuation nasal spray Use 1 Morley in each nostril two times a day. ketotifen fumarate (ZADITOR) 0.025 % (0.035 %) ophthalmic solution Use 1 Drop in both eyes two times a day as needed. No medication comments found. ALLERGIES No Known Allergies REVIEW OF SYSTEMS: PAIN ASSESSMENT: Pain Pain Level: 0 Pain Assessment: Assessment Tool: Verbal (Numeric Rating or Visual Analog Scale) General: Denies fever, chills, and unexpected weight change. Neuro: Denies dizziness and headaches. Respiratory: Denies SOB. +MIRTA Cardiovascular: Denies CP and palpitations. +POTS GI: See HPI. : Denies dysuria. Endocrine: No history of diabetes or thyroid conditions. Hematology: Denies history of bleeding or clotting disorder. No known autoimmune disorders. Psych: Denies anxiety/depression. Musculoskeletal: Denies joint pain and swelling. Skin: Denies open sores and rashes. Objective PHYSICAL EXAM: VITALS: BP 124/82 Pulse 88 Temp (Src) 98.3 (Temporal) Resp 19 SpO2 100% O2 Therapy: Room Air General: NAD. Cooperative. Skin: Skin is warm, no rashes, and no open sores. HEENT: Normocephalic. Cardiovascular: Normal S1 & S2. No murmur. Lungs: CTA Bilaterally. No respiratory distress. Abdomen: Soft. Pos BS x4quad Extremities: No edema. Neurological: Alert and oriented to person, place, and time. Pulses: radial pulses +2 Diagnostic tests reviewed for today's visit: Lab Value Units Date High Low HB No results within date range. HCT No results within date range. WBC No results within date range. PLT No results within date range. NA No results within date range. K No results within date range. GLUC No results within date range. BUN No results within date range. CREAT No results within date range. PTSEC No results within date range. INR No results within date range. APTT No results within date range. ALT No results within date range. AST No results within date range. TBILI No results within date range. TSH No results within date range. Lab Value Units Date High Low HCGQT No results within date range. UHCG No results within date range. HCG, BODY* No results within date range. Lab Value Units Date High Low ABORHD No results within date range. ABSCREEN No results within date range. Hemoglobin A1C (%) Date Value 01/09/2023 5.0 Assessment/Plan Patient has the following medical conditions which may affect jack-operative course Pre-Op Exam: see note for medical conditions which may affect jack-operative course that were addressed at today's visit. MIRTA: No machine. Patient states that she was prescribed allergy medication for this. POTS: Metoprolol- last dose taken yesterday. Follows with Neurology- last OV 09/05/23. Obesity, Class III, BMI >= 40: BMI 41.34 GERD: EGD today. Omeprazole- last dose taken 01/30/24. Diagnosis: Gastroesophageal reflux disease, unspecified whether esophagitis present [K21.9] Gastroesophageal reflux disease, unspecified whether esophagitis present [K21.9] Planned Procedure: Procedure(s): EGD WITH BIOPSY (Left) ESOPHAGEAL ACID REFLUX TEST W/MUCOSAL ATTACHED TELEMETRY PH ELECTRODE PLACEMENT RECORDING, ANALYSIS, & INTERPRETATION [] (N/A) The Following Tests/Procedures Have Been Initiated: IV start and Maintenance fluid for the procedure. ANESTHESIA FINDINGS: Significant Anesthesia Considerations: Postop nausea/vomiting Planned Anesthetic: MAC I spent a total of 20 minutes on the date of the service which included preparing to see the patient, [id number] patient care, completing clinical documentation, and performing a medically appropriate examination. Instructions Given to Patient: Patient given verbal preop instructions and voices comprehension and compliance. SIGNATURE: Karly Magaña APRN.CNP PATIENT NAME: Ace Leonardo DATE: February 06, 2024 TIME: 11:21 AM PAGER/CONTACT #: documented in this encounter [facility] 01-30-2024 Note HNO ID: [id number] Author: REMIGIO VILLAR RN Service: ? Author Type: Nurse Clinician Type: Progress Notes Filed: 01/30/2024 10:57 Note Text: Patient given written information about esophageal manometry and the prep instructions. I verbally discussed and reviewed the information with the patient. All of patient's questions were answered. Patient given written information about EGD and Smalls pH probe and the prep instructions. Verbally discussed and reviewed the information with the patient. All of patient's questions were answered. Remigio Villar RN [facility] 01-30-2024 History of Present illness Narrative Patient given written information about esophageal manometry and the prep instructions. I verbally discussed and reviewed the information with the patient. All of patient's questions were answered. Patient given written information about EGD and Smalls pH probe and the prep instructions. Verbally discussed and reviewed the information with the patient. All of patient's questions were answered. Remigio Villar RN Consultation requested by Dr. Guo for an opinion regarding GERD testing. My final recommendations will be communicated back to the requesting physician by way of shared Medical record or letter to requesting physician via [place] mail. Ace Leonardo is a 23 year old White female who presents with complaints of GERD and regurgitation. She had a gastric emptying study which was normal. The regurgitation happens daily. She had an EGD which was essentially normal. She is on omeprazole which does help with some of her symptoms. She drinks 1 large cup of coffee per day. Will drink 1 can of noncaffeinated pop per day. Denies any alcohol or tobacco use. History reviewed. No pertinent past medical history. PAST SURGICAL HISTORY Procedure Laterality Date EGD W/O [facility] SPEC VARICIES INJ 11/16/2023 Social History Tobacco Use Smoking status: Never Smokeless tobacco: Never Vaping Use Vaping status: Never Used FAMILY HISTORY Problem Relation Age of Onset Seizures Maternal Grandmother Heart Unknown maternal and paternal side Hypertension Unknown maternal great mother Cancer Unknown brain cancer- maternal great aunt other (hearing problems [Other]) Unknown maternal grandmother ALLERGIES No Known Allergies Current Outpatient Medications Medication Sig atomoxetine (STRATTERA) 40 mg capsule Take 40 mg by mouth once daily. metoprolol succinate ER (TOPROL XL) 25 mg 24 hr tablet take 1 tablet by mouth every day (Patient taking differently: Take 50 mg by mouth once daily.) L-norgest/e.estradiol-e.estrad (JAIMIESS ORAL) mecobalamin, vitamin B12, (B12 ACTIVE) 1,000 mcg chew omeprazole (PRILOSEC) 20 mg capsule Takes 40mg before breakfast and 20mg before dinner Fluticasone Furoate (FLONASE SENSIMIST) 27.5 mcg/actuation nasal spray Use 1 Morley in each nostril two times a day. ketotifen fumarate (ZADITOR) 0.025 % (0.035 %) ophthalmic solution Use 1 Drop in both eyes two times a day as needed. cetirizine (ZYRTEC) 10 mg tablet Take 1 tablet by mouth once daily. omeprazole (PRILOSEC) 40 mg capsule No current facility-administered medications for this visit. REVIEW OF SYSTEMS PAIN ASSESSMENT: Negative for pain, history of chronic pain, or current treatment for a chronic pain condition. GENERAL: No weight loss, malaise or fevers NECK: Negative for lumps, goiter, pain and significant neck swelling RESPIRATORY: Negative for cough, hemoptysis, wheezing, COPD, dyspnea or shortness of breath CARDIOVASCULAR: Negative for chest pain, leg swelling, hypertension, CHF or palpitations GI: See HPI : No history of dysuria, frequency or incontinence MUSCULOSKELETAL: Negative for joint pain or swelling, back pain or muscle pain HEMATOLOGY/LYMPHOLOGY: Negative for prolonged bleeding, bruising easily or swollen nodes ENDOCRINE: Negative for cold or heat intolerance, polyuria, polydipsia and goiter PHYSICAL EXAM: BP 131/77 Pulse 72 Resp 18 Ht 5' 2 (1.58m) Wt 226 lb (102.5kg) BMI 41.33 kg/(m^2). General Appearance: Well appearing, alert, in no acute distress, well-hydrated, well nourished. and Obese. Abdomen: Normal abdominal exam, Abdomen soft, non-tender. Bowel sounds normal. No masses, organomegaly, Positive findings: obese. Assessment: Gastroesophageal reflux disease, unspecified whether esophagitis present (primary encounter diagnosis) Regurgitation of food Class 3 severe obesity due to excess calories without serious comorbidity with body mass index (bmi) of 40.0 to 44.9 in adult ([facility]) Plan: ASSESSMENT/PLAN: 1. Gastroesophageal reflux disease, unspecified whether esophagitis present - ICD9: 530.81, ICD10: K21.9 (primary diagnosis) -We Argun to proceed with an EGD, Smalls pH probe placement and manometry. The risks, benefits and complications were reviewed including but not limited to bleeding, infection, missing a lesion, effects of anesthesia and perforation possibly requiring an emergency surgery. Patient understood and was agreeable to proceed. - MANOMETRY ESOPHAGEAL FUNCTION W/IMPEDANCE 2. Regurgitation of food - ICD9: 787.03, ICD10: R11.10 Workup as above 3. Class 3 severe obesity due to excess calories without serious comorbidity with body mass index (BMI) of 40.0 to 44.9 in adult ([facility]) - ICD9: 278.01, V85.41, ICD10: E66.813, E66.01, Z68.41 Stable Medical Decision Making: Problems: Moderate: New problem with uncertain prognosis Data: Unique test(s) ordered: 3+ Risk: Low: Low risk from testing/treatment Medical Decision Making Level: 4 - Moderate Sidney Boone M.D., F.A.C.S. documented in this encounter [facility] 01-30-2024 Instructions Sidney Boone MD - 01/30/2024 9:45 AM EDT Thank you for coming to see me today. It is my pleasure to take care of you. If you have any questions regarding your visit, please don't hesitate to contact us. documented in this encounter [facility] 01-30-2024 Note HNO ID: [id number] Author: SIDNEY BOONE MD Service: ? Author Type: Physician Type: Progress Notes Filed: 01/30/2024 10:57 Note Text: Consultation requested by Dr. Guo for an opinion regarding GERD testing. My final recommendations will be communicated back to the requesting physician by way of shared Medical record or letter to requesting physician via [place] mail. Ace Leonardo is a 23 year old White female who presents with complaints of GERD and regurgitation. She had a gastric emptying study which was normal. The regurgitation happens daily. She had an EGD which was essentially normal. She is on omeprazole which does help with some of her symptoms. She drinks 1 large cup of coffee per day. Will drink 1 can of noncaffeinated pop per day. Denies any alcohol or tobacco use. History reviewed. No pertinent past medical history. PAST SURGICAL HISTORY Procedure Laterality Date EGD W/O [facility] SPEC VARICIES INJ 11/16/2023 Social History Tobacco Use Smoking status: Never Smokeless tobacco: Never Vaping Use Vaping status: Never Used FAMILY HISTORY Problem Relation Age of Onset Seizures Maternal Grandmother Heart Unknown maternal and paternal side Hypertension Unknown maternal great mother Cancer Unknown brain cancer- maternal great aunt other (hearing problems [Other]) Unknown maternal grandmother ALLERGIES No Known Allergies Current Outpatient Medications Medication Sig atomoxetine (STRATTERA) 40 mg capsule Take 40 mg by mouth once daily. metoprolol succinate ER (TOPROL XL) 25 mg 24 hr tablet take 1 tablet by mouth every day (Patient taking differently: Take 50 mg by mouth once daily.) L-norgest/e.estradiol-e.estrad (JAIMIESS ORAL) mecobalamin, vitamin B12, (B12 ACTIVE) 1,000 mcg chew omeprazole (PRILOSEC) 20 mg capsule Takes 40mg before breakfast and 20mg before dinner Fluticasone Furoate (FLONASE SENSIMIST) 27.5 mcg/actuation nasal spray Use 1 Morley in each nostril two times a day. ketotifen fumarate (ZADITOR) 0.025 % (0.035 %) ophthalmic solution Use 1 Drop in both eyes two times a day as needed. cetirizine (ZYRTEC) 10 mg tablet Take 1 tablet by mouth once daily. omeprazole (PRILOSEC) 40 mg capsule No current facility-administered medications for this visit. REVIEW OF SYSTEMS PAIN ASSESSMENT: Negative for pain, history of chronic pain, or current treatment for a chronic pain condition. GENERAL: No weight loss, malaise or fevers NECK: Negative for lumps, goiter, pain and significant neck swelling RESPIRATORY: Negative for cough, hemoptysis, wheezing, COPD, dyspnea or shortness of breath CARDIOVASCULAR: Negative for chest pain, leg swelling, hypertension, CHF or palpitations GI: See HPI : No history of dysuria, frequency or incontinence MUSCULOSKELETAL: Negative for joint pain or swelling, back pain or muscle pain HEMATOLOGY/LYMPHOLOGY: Negative for prolonged bleeding, bruising easily or swollen nodes ENDOCRINE: Negative for cold or heat intolerance, polyuria, polydipsia and goiter PHYSICAL EXAM: BP 131/77 Pulse 72 Resp 18 Ht 5' 2 (1.58m) Wt 226 lb (102.5kg) BMI 41.33 kg/(m2). General Appearance: Well appearing, alert, in no acute distress, well-hydrated, well nourished. and Obese. Abdomen: Normal abdominal exam, Abdomen soft, non-tender. Bowel sounds normal. No masses, organomegaly, Positive findings: obese. Assessment: Gastroesophageal reflux disease, unspecified whether esophagitis present (primary encounter diagnosis) Regurgitation of food Class 3 severe obesity due to excess calories without serious comorbidity with body mass index (bmi) of 40.0 to 44.9 in adult ([facility]) Plan: ASSESSMENT/PLAN: 1. Gastroesophageal reflux disease, unspecified whether esophagitis present - ICD9: 530.81, ICD10: K21.9 (primary diagnosis) -We Argun to proceed with an EGD, Smalls pH probe placement and manometry. The risks, benefits and complications were reviewed including but not limited to bleeding, infection, missing a lesion, effects of anesthesia and perforation possibly requiring an emergency surgery. Patient understood and was agreeable to proceed. - MANOMETRY ESOPHAGEAL FUNCTION W/IMPEDANCE 2. Regurgitation of food - ICD9: 787.03, ICD10: R11.10 Workup as above 3. Class 3 severe obesity due to excess calories without serious comorbidity with body mass index (BMI) of 40.0 to 44.9 in adult ([facility]) - ICD9: 278.01, V85.41, ICD10: E66.813, E66.01, Z68.41 Stable Medical Decision Making: Problems: Moderate: New problem with uncertain prognosis Data: Unique test(s) ordered: 3+ Risk: Low: Low risk from testing/treatment Medical Decision Making Level: 4 - Moderate Sidney Boone M.D., F.A.C.S. [facility] 01-03-2024 Note HNO ID: [id number] Author: ARIEL GUO MD Service: ? Author Type: Physician Type: Progress Notes Filed: 01/03/2024 13:41 Note Text: Subjective: Patient is status post an upper endoscopy from November 16, 2023. Pathology report: FINAL DIAGNOSIS A. Small bowel, duodenum, biopsy: - Duodenal mucosa within normal limits. B. Stomach, antrum, biopsy: - Antral mucosa within normal limits. - No morphologic evidence of Helicobacter. C. Esophagus, distal, biopsy: - Squamous mucosa with mild reactive changes. D. Esophagus, mid, biopsy: - Squamous mucosa within normal limits. Patient is still having symptoms despite on maximal p.o. therapy Objective:There were no vitals taken for this visit. Abdomen is soft and nontender Assessment:Gastroesophageal reflux disease, unspecified whether esophagitis present (primary encounter diagnosis) Plan: I am going to obtain an esophageal manometry study and a 48-hour pH probe I will see her back once these are done. [facility] 01-03-2024 History of Present illness Narrative Subjective: Patient is status post an upper endoscopy from November 16, 2023. Pathology report: FINAL DIAGNOSIS A. Small bowel, duodenum, biopsy: - Duodenal mucosa within normal limits. B. Stomach, antrum, biopsy: - Antral mucosa within normal limits. - No morphologic evidence of Helicobacter. C. Esophagus, distal, biopsy: - Squamous mucosa with mild reactive changes. D. Esophagus, mid, biopsy: - Squamous mucosa within normal limits. Patient is still having symptoms despite on maximal p.o. therapy Objective:There were no vitals taken for this visit. Abdomen is soft and nontender Assessment:Gastroesophageal reflux disease, unspecified whether esophagitis present (primary encounter diagnosis) Plan: I am going to obtain an esophageal manometry study and a 48-hour pH probe I will see her back once these are done. documented in this encounter [facility] 12-31-2023 Telephone encounter Note Per Dr. Guo patient to have esophageal manometry & a 48 hr PH probe. Email sent to Remigio Villar to have their office review and call patient. Patient aware their office will call to schedule. Patient then to follow back up with [place]'s office after appointments are done Keren Martinez Ferris Wheel Operator [facility] 12-31-[address] Guo patient to have esophageal manometry & a 48 hr PH probe. Email sent to Remigio Villar to have their office review and call patient. Patient aware their office will call to schedule. Patient then to follow back up with [place]'s office after appointments are done Keren Martinez Ferris Wheel Operator documented in this encounter [facility] 12-31-2023 Telephone encounter Note Prescription Refill Information The patient has been identified by name and date of : Yes Caregiver verified no other encounters exist for this prescription request: Yes Caregiver confirmed with patient/requestor that no other refills are due, in the near future, with this provider at this time: Yes The last office visit in the department: 09/05/2023 Does the patient have a future office visit with this provider/department: Yes, 03/18/2024 Requested Prescriptions Pending Prescriptions Disp Refills metoprolol succinate ER (TOPROL XL) 25 mg 24 hr tablet [Pharmacy Med Name: Metoprolol Succinate ER Oral Tablet Extended Release 24 Hour 25 MG] 30 tablet 0 Sig: take 1 tablet by mouth every day RACIEL Su December 31, 2023 10:34 AM [facility] 12-31-2023 Miscellaneous Notes Prescription Refill Information The patient has been identified by name and date of : Yes Caregiver verified no other encounters exist for this prescription request: Yes Caregiver confirmed with patient/requestor that no other refills are due, in the near future, with this provider at this time: Yes The last office visit in the department: 09/05/2023 Does the patient have a future office visit with this provider/department: Yes, 03/18/2024 Requested Prescriptions Pending Prescriptions Disp Refills metoprolol succinate ER (TOPROL XL) 25 mg 24 hr tablet [Pharmacy Med Name: Metoprolol Succinate ER Oral Tablet Extended Release 24 Hour 25 MG] 30 tablet 0 Sig: take 1 tablet by mouth every day RACIEL Su December 31, 2023 10:34 AM documented in this encounter [facility] 11-19-2023 Telephone encounter Note Contacted Ace with the Recommendations below. She stated the pain was the same as it was in the ED. I recommended if the pain gets worse, or doesn't go away to be reevaluated in the ED. She voiced understanding and had no further questions.Cassandra Nicholson RN [facility] 11-19-2023 Miscellaneous Notes Contacted Ace with the Recommendations below. She stated the pain was the same as it was in the ED. I recommended if the pain gets worse, or doesn't go away to be reevaluated in the ED. She voiced understanding and had no further questions.Cassandra Nicholson RN Patient calling and reports she has had constant aching pain in her lower abdomen since EGD. Occasionally sharp depending on activity and had signifcant nausea over the weekend. She was evaluated at [facility] ER and given medication for nausea and discharged to home. She is wondering if there is anything she should be doing for pain? Denies emesis or cough/hemoptysis. Reports the pain interferes with sleep. She would like a work excuse for today if possible. Patient can be reached at [phone] Ivis Richter LPN documented in this encounter [facility] 11-19-2023 Telephone encounter Note Patient calling and reports she has had constant aching pain in her lower abdomen since EGD. Occasionally sharp depending on activity and had signifcant nausea over the weekend. She was evaluated at [facility] ER and given medication for nausea and discharged to home. She is wondering if there is anything she should be doing for pain? Denies emesis or cough/hemoptysis. Reports the pain interferes with sleep. She would like a work excuse for today if possible. Patient can be reached at [phone] Ivis Richter LPN [facility] 11-18-2023 Note HNO ID: [id number] Author: JEROME ALLEN APRN.MICROSOFT ARCHITECT Service: ? Author Type: Nurse Practitioner Type: Progress Notes Filed: 11/18/2023 10:18 Note Text: Nontoxic-appearing female presents urgent care chief complaint esophageal and abdominal pain. Duration of symptoms yesterday. Associated symptoms listed above. Patient states on November 15 she had a EGD. States pain was so severe last night it kept her up. Patient rates pain 7-8 out of 10. EGD was performed in the [facility] [place] [facility]. Recommended patient return to [facility] emergency room. Patient states she will be seen at [facility]. Verbalized understanding agrees with plan of care. Jerome Allen APRN.MICROSOFT ARCHITECT [facility] 11-18-2023 History of Present illness Narrative Nontoxic-appearing female presents urgent care chief complaint esophageal and abdominal pain. Duration of symptoms yesterday. Associated symptoms listed above. Patient states on November 15 she had a EGD. States pain was so severe last night it kept her up. Patient rates pain 7-8 out of 10. EGD was performed in the [facility] ED. Recommended patient return to [facility] emergency room. Patient states she will be seen at [facility]. Verbalized understanding agrees with plan of care. Jerome Allen APRN.GIOVANNA documented in this encounter [facility] 11-16-2023 History and physical note HISTORY AND PHYSICAL Ace Leonardo : 2000 REFERRING PHYSICIAN: SELF CHIEF COMPLAINT: Patient presents with: New Patient: EGD consult HPI: Ace is a 22 year old female referred for endoscopy. Ace notes regurgitation since I was young - before high school. Ace states that 20 minutes after she eats she will have food regurg that she just swallows. She states she thought this was normal since it has happened for so long. She denies burning or pain, or blood. She states that if a pill is dry on occasion it feels like it gets stuck but denies dysphagia with food or liquids. She has been taking Prilosec 40mg in the AM and 20mg with dinner with minimal relief. Ace refers that she does not eat spicy foods and drinks plenty of water throughout the day d/t her hot work environment and history of POTS. Ace refers family history- Paternal grandfather had esophageal cancer and the majority of her father's side relatives suffer from reflux. Ace had a gastric emptying study done at [facility] on May that was normal. Patient denies any change in bowel habits, weight changes, blood in stools, black tarry stools or abdominal pain. Ace has not undergone prior endoscopy. CURRENT MEDICATIONS Current Outpatient Medications Medication Sig L-norgest/e.estradiol-e.estrad (JAIMIESS ORAL) mecobalamin, vitamin B12, (B12 ACTIVE) 1,000 mcg chew omeprazole (PRILOSEC) 40 mg capsule omeprazole (PRILOSEC) 20 mg capsule Takes 40mg before breakfast and 20mg before dinner Fluticasone Furoate (FLONASE SENSIMIST) 27.5 mcg/actuation nasal spray Use 1 Morley in each nostril two times a day. ketotifen fumarate (ZADITOR) 0.025 % (0.035 %) ophthalmic solution Use 1 Drop in both eyes two times a day as needed. metoprolol succinate ER (TOPROL XL) 25 mg 24 hr tablet Take 1 tablet by mouth once daily. cetirizine (ZYRTEC) 10 mg tablet Take 1 tablet by mouth once daily. FLUoxetine (PROZAC) 40 mg capsule Take 40 mg by mouth once daily. No current facility-administered medications for this visit. ALLERGIES: Patient has no known allergies. PAST MEDICAL HISTORY No past medical history on file. PAST SURGICAL HISTORY No past surgical history on file. FAMILY HISTORY FAMILY HISTORY Problem Relation Age of Onset Seizures Maternal Grandmother Heart Unknown maternal and paternal side Hypertension Unknown maternal great mother Cancer Unknown brain cancer- maternal great aunt other (hearing problems [Other]) Unknown maternal grandmother SOCIAL HISTORY Social History Tobacco Use Smoking status: Never Smokeless tobacco: Never Vaping Use Vaping Use: Never used REVIEW OF SYMPTOMS: The review of systems data was entered by the nurse and reviewed by il Nursing Notes: Ivis Richter LPN 09/21/2023 8:37 AM Signed REVIEW OF SYSTEMS: General: The patient notes fatigue, denies weight loss, notes weight gain, denies feeling hot, and denies feelings of cold. Eyes: The patient denies glaucoma, denies eye injury/surgery, wears glasses or contacts. Ear/Nose/Throat: The patient denies allergies, denies hayfever, denies ear infections, and notes bloody noses. Cardiovascular: The patient denies chest pain, denies heart disease, denies high blood pressure,denies cardiac stent, denies prior heart attack, notes irregular heart beat, denies high cholesterol, denies poor circulation, denies heart failure, other cardiac issues, denies claudication, denies cold feet, denies peripheral arterial stent. Respiratory: The patient denies tuberculosis, denies pneumonia, denies frequent cough, denies pulmonary embolism, denies shortness of breath, and denies coughing up blood. Gastrointestinal: The patient denies difficulty swallowing, notes acid reflux, denies ulcers, denies vomiting, denies jaundice/hepatitis, denies gallbladder problems, denies black or tarry stools, denies hemorrhoids, denies bleeding from rectum, denies diverticulitis, notes constipation, notes diarrhea, denies loss of stool control, and denies hernias. Kidney/Bladder: The patient denies kidney stones, denies urine infections, and denies bloody urine. Skin: The patient denies a history of skin cancer, denies bleeding/changing moles, and notes a history of skin rash. Neurologic: The patient denies a history of epilepsy/convulsions, notes headaches, denies head/spinal injuries, and denies stroke/TIA. Psychiatric: The patient denies psychiatric medications, notes depression, and denies voices, denies substance abuse. Endocrine: The patient notes thyroid disorders, denies diabetes, and denies hormonal problems. Hematologic: The patient denies a history of bruising, denies bleeding, and notes anemia, denies blood clots. Infections: The patient denies a history of measles and mumps, denies rheumatic fever, and denies sexually transmitted diseases. Musculoskeletal: The patient notes back pain/injury, denies back problems, denies sciatica, denies knee/foot trouble, denies arthritis, or denies gout. When was patient's last Mammogram screening? N/A Last Colonoscopy: N/A Ivis Richter LPN PHYSICAL EXAMINATION: General: The patient is 22 year old, female well nourished, well hydrated in no acute distress. The patient is oriented to time, place, and person. VITALS: Blood pressure (P) 118/82, pulse (!) (P) 58, resp. rate (P) 15, weight 99.8 kg (220 lb), SpO2 (P) 96%. Body mass index is 35.7 kg/m . HEENT: Normal cephalic, ataumatic, pupils are equally round, sclera are anicteric, mucous membranes are moist, oropharynx is clear. Neck has no masses, asymmetry or lymphadenopathy. Respiratory: Clear to auscultation and percussion. Normal respiratory excursion and pattern. Cardiac: Examination is regular rate and rhythm. Normal S1/S2 Abdominal exam: Soft, nontender, with no palpable masses. No hepatosplenomegaly. No palpable hernias. Extremities: no clubbing, cyanosis or edema. No adenopathy. LABORATORY VALUES: As Noted RADIOLOGIC STUDIES: As Noted Assessment IMPRESSION: GERD PLAN: I have reviewed my findings with the surgeon. Will plan for upper endoscopy. We discussed the risks and benefits of the planned endoscopy. I have informed the patient that complications can occur including failure to complete the endoscopy and perforation. Ace had the opportunity to ask questions concerning the planned endoscopy. My staff has also explained the procedure to the patient in understandable terms and has given the patient printed material concerning the procedure. Ace freely consents to surgery. I have explained to the patient the difference between IV conscious sedation and MAC anesthesia - and I have offered either, according to the patient's wishes. I have explained that with IV conscious sedation there is no anesthesia provider available and therefore there is a limitation of the amount of IV medications that can be given and that the patient may wake up in the middle of the procedure and/or experience pain/discomfort during the procedure. Further discussion was done and the patient was given the opportunity to ask questions and all questions were answered. Ace chooses MAC anesthesia. Ace was counseled that if there are changes in his/her medical condition, to let the office know if surgery should proceed. If there are changes in patient's medical condition from time of this encounter to the day of the procedure that preclude anesthesia, patient may have procedure cancelled for patient's safety. Diagnoses: (K21.9) Gastroesophageal reflux disease, unspecified whether esophagitis present (primary encounter diagnosis) Monse Chapin APRN.MICROSOFT ARCHITECT UPDATED HISTORY AND PHYSICAL EXAMINATION SERVICE DATE: 11/16/2023 SERVICE TIME: 11:07 AM PHYSICAL EXAM MUST BE COMPLETED ON ADMISSION The History and Physical (completed in the past 30 days) has been reviewed and the patient has been examined. The contents accurately reflect the patient's condition with the following additions or revisions since the H&P was completed. Examination indicates no changes. This H&P can be found in the attached. SIGNATURE: Ariel Guo III, MD PATIENT NAME: Ace Leonardo DATE: November 16, 2023 TIME: 11:07 AM [facility] 11-16-2023 History and physical note HISTORY AND PHYSICAL Ace Leonardo : 2000 REFERRING PHYSICIAN: SELF CHIEF COMPLAINT: Patient presents with: New Patient: EGD consult HPI: Ace is a 22 year old female referred for endoscopy. Ace notes regurgitation since I was young - before high school. Ace states that 20 minutes after she eats she will have food regurg that she just swallows. She states she thought this was normal since it has happened for so long. She denies burning or pain, or blood. She states that if a pill is dry on occasion it feels like it gets stuck but denies dysphagia with food or liquids. She has been taking Prilosec 40mg in the AM and 20mg with dinner with minimal relief. Ace refers that she does not eat spicy foods and drinks plenty of water throughout the day d/t her hot work environment and history of POTS. Ace refers family history- Paternal grandfather had esophageal cancer and the majority of her father's side relatives suffer from reflux. Ace had a gastric emptying study done at [facility] on May that was normal. Patient denies any change in bowel habits, weight changes, blood in stools, black tarry stools or abdominal pain. Ace has not undergone prior endoscopy. CURRENT MEDICATIONS Current Outpatient Medications Medication Sig L-norgest/e.estradiol-e.estrad (JAIMIESS ORAL) mecobalamin, vitamin B12, (B12 ACTIVE) 1,000 mcg chew omeprazole (PRILOSEC) 40 mg capsule omeprazole (PRILOSEC) 20 mg capsule Takes 40mg before breakfast and 20mg before dinner Fluticasone Furoate (FLONASE SENSIMIST) 27.5 mcg/actuation nasal spray Use 1 [place] in each nostril two times a day. ketotifen fumarate (ZADITOR) 0.025 % (0.035 %) ophthalmic solution Use 1 Drop in both eyes two times a day as needed. metoprolol succinate ER (TOPROL XL) 25 mg 24 hr tablet Take 1 tablet by mouth once daily. cetirizine (ZYRTEC) 10 mg tablet Take 1 tablet by mouth once daily. FLUoxetine (PROZAC) 40 mg capsule Take 40 mg by mouth once daily. No current facility-administered medications for this visit. ALLERGIES: Patient has no known allergies. PAST MEDICAL HISTORY No past medical history on file. PAST SURGICAL HISTORY No past surgical history on file. FAMILY HISTORY FAMILY HISTORY Problem Relation Age of Onset Seizures Maternal Grandmother Heart Unknown maternal and paternal side Hypertension Unknown maternal great mother Cancer Unknown brain cancer- maternal great aunt other (hearing problems [Other]) Unknown maternal grandmother SOCIAL HISTORY Social History Tobacco Use Smoking status: Never Smokeless tobacco: Never Vaping Use Vaping Use: Never used REVIEW OF SYMPTOMS: The review of systems data was entered by the nurse and reviewed by me Nursing Notes: Ivis Richter LPN 09/21/2023 8:37 AM Signed REVIEW OF SYSTEMS: General: The patient notes fatigue, denies weight loss, notes weight gain, denies feeling hot, and denies feelings of cold. Eyes: The patient denies glaucoma, denies eye injury/surgery, wears glasses or contacts. Ear/Nose/Throat: The patient denies allergies, denies hayfever, denies ear infections, and notes bloody noses. Cardiovascular: The patient denies chest pain, denies heart disease, denies high blood pressure,denies cardiac stent, denies prior heart attack, notes irregular heart beat, denies high cholesterol, denies poor circulation, denies heart failure, other cardiac issues, denies claudication, denies cold feet, denies peripheral arterial stent. Respiratory: The patient denies tuberculosis, denies pneumonia, denies frequent cough, denies pulmonary embolism, denies shortness of breath, and denies coughing up blood. Gastrointestinal: The patient denies difficulty swallowing, notes acid reflux, denies ulcers, denies vomiting, denies jaundice/hepatitis, denies gallbladder problems, denies black or tarry stools, denies hemorrhoids, denies bleeding from rectum, denies diverticulitis, notes constipation, notes diarrhea, denies loss of stool control, and denies hernias. Kidney/Bladder: The patient denies kidney stones, denies urine infections, and denies bloody urine. Skin: The patient denies a history of skin cancer, denies bleeding/changing moles, and notes a history of skin rash. Neurologic: The patient denies a history of epilepsy/convulsions, notes headaches, denies head/spinal injuries, and denies stroke/TIA. Psychiatric: The patient denies psychiatric medications, notes depression, and denies voices, denies substance abuse. Endocrine: The patient notes thyroid disorders, denies diabetes, and denies hormonal problems. Hematologic: The patient denies a history of bruising, denies bleeding, and notes anemia, denies blood clots. Infections: The patient denies a history of measles and mumps, denies rheumatic fever, and denies sexually transmitted diseases. Musculoskeletal: The patient notes back pain/injury, denies back problems, denies sciatica, denies knee/foot trouble, denies arthritis, or denies gout. When was patient's last Mammogram screening? N/A Last Colonoscopy: N/A Ivis Richter LPN PHYSICAL EXAMINATION: General: The patient is 22 year old, female well nourished, well hydrated in no acute distress. The patient is oriented to time, place, and person. VITALS: Blood pressure (P) 118/82, pulse (!) (P) 58, resp. rate (P) 15, weight 99.8 kg (220 lb), SpO2 (P) 96%. Body mass index is 35.7 kg/m . HEENT: Normal cephalic, ataumatic, pupils are equally round, sclera are anicteric, mucous membranes are moist, oropharynx is clear. Neck has no masses, asymmetry or lymphadenopathy. Respiratory: Clear to auscultation and percussion. Normal respiratory excursion and pattern. Cardiac: Examination is regular rate and rhythm. Normal S1/S2 Abdominal exam: Soft, nontender, with no palpable masses. No hepatosplenomegaly. No palpable hernias. Extremities: no clubbing, cyanosis or edema. No adenopathy. LABORATORY VALUES: As Noted RADIOLOGIC STUDIES: As Noted Assessment IMPRESSION: GERD PLAN: I have reviewed my findings with the surgeon. Will plan for upper endoscopy. We discussed the risks and benefits of the planned endoscopy. I have informed the patient that complications can occur including failure to complete the endoscopy and perforation. Ace had the opportunity to ask questions concerning the planned endoscopy. My staff has also explained the procedure to the patient in understandable terms and has given the patient printed material concerning the procedure. Ace freely consents to surgery. I have explained to the patient the difference between IV conscious sedation and MAC anesthesia - and I have offered either, according to the patient's wishes. I have explained that with IV conscious sedation there is no anesthesia provider available and therefore there is a limitation of the amount of IV medications that can be given and that the patient may wake up in the middle of the procedure and/or experience pain/discomfort during the procedure. Further discussion was done and the patient was given the opportunity to ask questions and all questions were answered. Ace chooses MAC anesthesia. Ace was counseled that if there are changes in his/her medical condition, to let the office know if surgery should proceed. If there are changes in patient's medical condition from time of this encounter to the day of the procedure that preclude anesthesia, patient may have procedure cancelled for patient's safety. Diagnoses: (K21.9) Gastroesophageal reflux disease, unspecified whether esophagitis present (primary encounter diagnosis) Monse Chapin APRN.MICROSOFT ARCHITECT UPDATED HISTORY AND PHYSICAL EXAMINATION SERVICE DATE: 11/16/2023 SERVICE TIME: 11:07 AM PHYSICAL EXAM MUST BE COMPLETED ON ADMISSION The History and Physical (completed in the past 30 days) has been reviewed and the patient has been examined. The contents accurately reflect the patient's condition with the following additions or revisions since the H&P was completed. Examination indicates no changes. This H&P can be found in the attached. SIGNATURE: Ariel Guo III, MD PATIENT NAME: Ace Leonardo DATE: November 16, 2023 TIME: 11:07 AM documented in this encounter [facility] 09-21-2023 Note HNO ID: [id number] Author: MONSE CHAPIN APRN.CNP Service: ? Author Type: Nurse Practitioner Type: Progress Notes Filed: 09/21/2023 08:55 Note Text: HISTORY AND PHYSICAL Ace Leonardo : 2000 REFERRING PHYSICIAN: SELF CHIEF COMPLAINT: Patient presents with: New Patient: EGD consult HPI: Ace is a 22 year old female referred for endoscopy. Ace notes regurgitation since I was young - before high school. Ace states that 20 minutes after she eats she will have food regurg that she just swallows. She states she thought this was normal since it has happened for so long. She denies burning or pain, or blood. She states that if a pill is dry on occasion it feels like it gets stuck but denies dysphagia with food or liquids. She has been taking Prilosec 40mg in the AM and 20mg with dinner with minimal relief. Ace refers that she does not eat spicy foods and drinks plenty of water throughout the day d/t her hot work environment and history of POTS. Ace refers family history- Paternal grandfather had esophageal cancer and the majority of her father's side relatives suffer from reflux. Ace had a gastric emptying study done at [facility] on May that was normal. Patient denies any change in bowel habits, weight changes, blood in stools, black tarry stools or abdominal pain. Ace has not undergone prior endoscopy. Current Outpatient Medications Medication Sig L-norgest/e.estradiol-e.estrad (JAIMIESS ORAL) mecobalamin, vitamin B12, (B12 ACTIVE) 1,000 mcg chew omeprazole (PRILOSEC) 40 mg capsule omeprazole (PRILOSEC) 20 mg capsule Takes 40mg before breakfast and 20mg before dinner Fluticasone Furoate (FLONASE SENSIMIST) 27.5 mcg/actuation nasal spray Use 1 [place] in each nostril two times a day. ketotifen fumarate (ZADITOR) 0.025 % (0.035 %) ophthalmic solution Use 1 Drop in both eyes two times a day as needed. metoprolol succinate ER (TOPROL XL) 25 mg 24 hr tablet Take 1 tablet by mouth once daily. cetirizine (ZYRTEC) 10 mg tablet Take 1 tablet by mouth once daily. FLUoxetine (PROZAC) 40 mg capsule Take 40 mg by mouth once daily. No current facility-administered medications for this visit. ALLERGIES: Patient has no known allergies. No past medical history on file. No past surgical history on file. FAMILY HISTORY Problem Relation Age of Onset Seizures Maternal Grandmother Heart Unknown maternal and paternal side Hypertension Unknown maternal great mother Cancer Unknown brain cancer- maternal great aunt other (hearing problems [Other]) Unknown maternal grandmother Social History Tobacco Use Smoking status: Never Smokeless tobacco: Never Vaping Use Vaping Use: Never used REVIEW OF SYMPTOMS: The review of systems data was entered by the nurse and reviewed by me Nursing Notes: Ivis RichterRAUL 09/21/2023 8:37 AM Signed REVIEW OF SYSTEMS: General: The patient notes fatigue, denies weight loss, notes weight gain, denies feeling hot, and denies feelings of cold. Eyes: The patient denies glaucoma, denies eye injury/surgery, wears glasses or contacts. Ear/Nose/Throat: The patient denies allergies, denies hayfever, denies ear infections, and notes bloody noses. Cardiovascular: The patient denies chest pain, denies heart disease, denies high blood pressure,denies cardiac stent, denies prior heart attack, notes irregular heart beat, denies high cholesterol, denies poor circulation, denies heart failure, other cardiac issues, denies claudication, denies cold feet, denies peripheral arterial stent. Respiratory: The patient denies tuberculosis, denies pneumonia, denies frequent cough, denies pulmonary embolism, denies shortness of breath, and denies coughing up blood. Gastrointestinal: The patient denies difficulty swallowing, notes acid reflux, denies ulcers, denies vomiting, denies jaundice/hepatitis, denies gallbladder problems, denies black or tarry stools, denies hemorrhoids, denies bleeding from rectum, denies diverticulitis, notes constipation, notes diarrhea, denies loss of stool control, and denies hernias. Kidney/Bladder: The patient denies kidney stones, denies urine infections, and denies bloody urine. Skin: The patient denies a history of skin cancer, denies bleeding/changing moles, and notes a history of skin rash. Neurologic: The patient denies a history of epilepsy/convulsions, notes headaches, denies head/spinal injuries, and denies stroke/TIA. Psychiatric: The patient denies psychiatric medications, notes depression, and denies voices, denies substance abuse. Endocrine: The patient notes thyroid disorders, denies diabetes, and denies hormonal problems. Hematologic: The patient denies a history of bruising, denies bleeding, and notes anemia, denies blood clots. Infections: The patient denies a history of measles and mumps, denies rheumatic fever, and denies sexually transmitted diseases. (more content not included)... [facility] 09-21-2023 History of Present illness Narrative HISTORY AND PHYSICAL Ace Leonardo : 2000 REFERRING PHYSICIAN: SELF CHIEF COMPLAINT: Patient presents with: New Patient: EGD consult HPI: Ace is a 22 year old female referred for endoscopy. Ace notes regurgitation since I was young - before high school. Ace states that 20 minutes after she eats she will have food regurg that she just swallows. She states she thought this was normal since it has happened for so long. She denies burning or pain, or blood. She states that if a pill is dry on occasion it feels like it gets stuck but denies dysphagia with food or liquids. She has been taking Prilosec 40mg in the AM and 20mg with dinner with minimal relief. Ace refers that she does not eat spicy foods and drinks plenty of water throughout the day d/t her hot work environment and history of POTS. Ace refers family history- Paternal grandfather had esophageal cancer and the majority of her father's side relatives suffer from reflux. Ace had a gastric emptying study done at [facility] on May that was normal. Patient denies any change in bowel habits, weight changes, blood in stools, black tarry stools or abdominal pain. Ace has not undergone prior endoscopy. Current Outpatient Medications Medication Sig L-norgest/e.estradiol-e.estrad (JAIMIESS ORAL) mecobalamin, vitamin B12, (B12 ACTIVE) 1,000 mcg chew omeprazole (PRILOSEC) 40 mg capsule omeprazole (PRILOSEC) 20 mg capsule Takes 40mg before breakfast and 20mg before dinner Fluticasone Furoate (FLONASE SENSIMIST) 27.5 mcg/actuation nasal spray Use 1 [place]ley in each nostril two times a day. ketotifen fumarate (ZADITOR) 0.025 % (0.035 %) ophthalmic solution Use 1 Drop in both eyes two times a day as needed. metoprolol succinate ER (TOPROL XL) 25 mg 24 hr tablet Take 1 tablet by mouth once daily. cetirizine (ZYRTEC) 10 mg tablet Take 1 tablet by mouth once daily. FLUoxetine (PROZAC) 40 mg capsule Take 40 mg by mouth once daily. No current facility-administered medications for this visit. ALLERGIES: Patient has no known allergies. No past medical history on file. No past surgical history on file. FAMILY HISTORY Problem Relation Age of Onset Seizures Maternal Grandmother Heart Unknown maternal and paternal side Hypertension Unknown maternal great mother Cancer Unknown brain cancer- maternal great aunt other (hearing problems [Other]) Unknown maternal grandmother Social History Tobacco Use Smoking status: Never Smokeless tobacco: Never Vaping Use Vaping Use: Never used REVIEW OF SYMPTOMS: The review of systems data was entered by the nurse and reviewed by me Nursing Notes: Ivis Richter LPN 09/21/2023 8:37 AM Signed REVIEW OF SYSTEMS: General: The patient notes fatigue, denies weight loss, notes weight gain, denies feeling hot, and denies feelings of cold. Eyes: The patient denies glaucoma, denies eye injury/surgery, wears glasses or contacts. Ear/Nose/Throat: The patient denies allergies, denies hayfever, denies ear infections, and notes bloody noses. Cardiovascular: The patient denies chest pain, denies heart disease, denies high blood pressure,denies cardiac stent, denies prior heart attack, notes irregular heart beat, denies high cholesterol, denies poor circulation, denies heart failure, other cardiac issues, denies claudication, denies cold feet, denies peripheral arterial stent. Respiratory: The patient denies tuberculosis, denies pneumonia, denies frequent cough, denies pulmonary embolism, denies shortness of breath, and denies coughing up blood. Gastrointestinal: The patient denies difficulty swallowing, notes acid reflux, denies ulcers, denies vomiting, denies jaundice/hepatitis, denies gallbladder problems, denies black or tarry stools, denies hemorrhoids, denies bleeding from rectum, denies diverticulitis, notes constipation, notes diarrhea, denies loss of stool control, and denies hernias. Kidney/Bladder: The patient denies kidney stones, denies urine infections, and denies bloody urine. Skin: The patient denies a history of skin cancer, denies bleeding/changing moles, and notes a history of skin rash. Neurologic: The patient denies a history of epilepsy/convulsions, notes headaches, denies head/spinal injuries, and denies stroke/TIA. Psychiatric: The patient denies psychiatric medications, notes depression, and denies voices, denies substance abuse. Endocrine: The patient notes thyroid disorders, denies diabetes, and denies hormonal problems. Hematologic: The patient denies a history of bruising, denies bleeding, and notes anemia, denies blood clots. Infections: The patient denies a history of measles and mumps, denies rheumatic fever, and denies sexually transmitted diseases. Musculoskeletal: The patient notes back pain/injury, denies back problems, denies sciatica, denies knee/foot trouble, denies arthritis, or denies gout. When was patient's last Mammogram screening? N/A Last Colonoscopy: N/A Ivis Richter LPN PHYSICAL EXAMINATION: General: The patient is 22 year old, female well nourished, well hydrated in no acute distress. The patient is oriented to time, place, and person. VITALS: Blood pressure (P) 118/82, pulse (!) (P) 58, resp. rate (P) 15, weight 99.8 kg (220 lb), SpO2 (P) 96%. Body mass index is 35.7 kg/m . HEENT: Normal cephalic, ataumatic, pupils are equally round, sclera are anicteric, mucous membranes are moist, oropharynx is clear. Neck has no masses, asymmetry or lymphadenopathy. Respiratory: Clear to auscultation and percussion. Normal respiratory excursion and pattern. Cardiac: Examination is regular rate and rhythm. Normal S1/S2 Abdominal exam: Soft, nontender, with no palpable masses. No hepatosplenomegaly. No palpable hernias. Extremities: no clubbing, cyanosis or edema. No adenopathy. LABORATORY VALUES: As Noted RADIOLOGIC STUDIES: As Noted Assessment IMPRESSION: GERD PLAN: I have reviewed my findings with the surgeon. Will plan for upper endoscopy. We discussed the risks and benefits of the planned endoscopy. I have informed the patient that complications can occur including failure to complete the endoscopy and perforation. Ace had the opportunity to ask questions concerning the planned endoscopy. My staff has also explained the procedure to the patient in understandable terms and has given the patient printed material concerning the procedure. Ace freely consents to surgery. I have explained to the patient the difference between IV conscious sedation and MAC anesthesia - and I have offered either, according to the patient's wishes. I have explained that with IV conscious sedation there is no anesthesia provider available and therefore there is a limitation of the amount of IV medications that can be given and that the patient may wake up in the middle of the procedure and/or experience pain/discomfort during the procedure. Further discussion was done and the patient was given the opportunity to ask questions and all questions were answered. Ace chooses MAC anesthesia. Ace was counseled that if there are changes in his/her medical condition, to let the office know if surgery should proceed. If there are changes in patient's medical condition from time of this encounter to the day of the procedure that preclude anesthesia, patient may have procedure cancelled for patient's safety. Diagnoses: (K21.9) Gastroesophageal reflux disease, unspecified whether esophagitis present (primary encounter diagnosis) Monse Chapin APRN.MICROSOFT ARCHITECT documented in this encounter [facility] 09-21-2023 Nurse Note REVIEW OF SYSTEMS: General: The patient notes fatigue, denies weight loss, notes weight gain, denies feeling hot, and denies feelings of cold. Eyes: The patient denies glaucoma, denies eye injury/surgery, wears glasses or contacts. Ear/Nose/Throat: The patient denies allergies, denies hayfever, denies ear infections, and notes bloody noses. Cardiovascular: The patient denies chest pain, denies heart disease, denies high blood pressure,denies cardiac stent, denies prior heart attack, notes irregular heart beat, denies high cholesterol, denies poor circulation, denies heart failure, other cardiac issues, denies claudication, denies cold feet, denies peripheral arterial stent. Respiratory: The patient denies tuberculosis, denies pneumonia, denies frequent cough, denies pulmonary embolism, denies shortness of breath, and denies coughing up blood. Gastrointestinal: The patient denies difficulty swallowing, notes acid reflux, denies ulcers, denies vomiting, denies jaundice/hepatitis, denies gallbladder problems, denies black or tarry stools, denies hemorrhoids, denies bleeding from rectum, denies diverticulitis, notes constipation, notes diarrhea, denies loss of stool control, and denies hernias. Kidney/Bladder: The patient denies kidney stones, denies urine infections, and denies bloody urine. Skin: The patient denies a history of skin cancer, denies bleeding/changing moles, and notes a history of skin rash. Neurologic: The patient denies a history of epilepsy/convulsions, notes headaches, denies head/spinal injuries, and denies stroke/TIA. Psychiatric: The patient denies psychiatric medications, notes depression, and denies voices, denies substance abuse. Endocrine: The patient notes thyroid disorders, denies diabetes, and denies hormonal problems. Hematologic: The patient denies a history of bruising, denies bleeding, and notes anemia, denies blood clots. Infections: The patient denies a history of measles and mumps, denies rheumatic fever, and denies sexually transmitted diseases. Musculoskeletal: The patient notes back pain/injury, denies back problems, denies sciatica, denies knee/foot trouble, denies arthritis, or denies gout. When was patient's last Mammogram screening? N/A Last Colonoscopy: N/A Ivis Richter LPN [facility] 09-21-2023 Nurse Note REVIEW OF SYSTEMS: General: The patient notes fatigue, denies weight loss, notes weight gain, denies feeling hot, and denies feelings of cold. Eyes: The patient denies glaucoma, denies eye injury/surgery, wears glasses or contacts. Ear/Nose/Throat: The patient denies allergies, denies hayfever, denies ear infections, and notes bloody noses. Cardiovascular: The patient denies chest pain, denies heart disease, denies high blood pressure,denies cardiac stent, denies prior heart attack, notes irregular heart beat, denies high cholesterol, denies poor circulation, denies heart failure, other cardiac issues, denies claudication, denies cold feet, denies peripheral arterial stent. Respiratory: The patient denies tuberculosis, denies pneumonia, denies frequent cough, denies pulmonary embolism, denies shortness of breath, and denies coughing up blood. Gastrointestinal: The patient denies difficulty swallowing, notes acid reflux, denies ulcers, denies vomiting, denies jaundice/hepatitis, denies gallbladder problems, denies black or tarry stools, denies hemorrhoids, denies bleeding from rectum, denies diverticulitis, notes constipation, notes diarrhea, denies loss of stool control, and denies hernias. Kidney/Bladder: The patient denies kidney stones, denies urine infections, and denies bloody urine. Skin: The patient denies a history of skin cancer, denies bleeding/changing moles, and notes a history of skin rash. Neurologic: The patient denies a history of epilepsy/convulsions, notes headaches, denies head/spinal injuries, and denies stroke/TIA. Psychiatric: The patient denies psychiatric medications, notes depression, and denies voices, denies substance abuse. Endocrine: The patient notes thyroid disorders, denies diabetes, and denies hormonal problems. Hematologic: The patient denies a history of bruising, denies bleeding, and notes anemia, denies blood clots. Infections: The patient denies a history of measles and mumps, denies rheumatic fever, and denies sexually transmitted diseases. Musculoskeletal: The patient notes back pain/injury, denies back problems, denies sciatica, denies knee/foot trouble, denies arthritis, or denies gout. When was patient's last Mammogram screening? N/A Last Colonoscopy: N/A Ivis Richter LPN documented in this encounter [facility] 09-13-2023 Telephone encounter Note Referral received, given to pss computer processing scheduler to reach out to patient for an appointment. Ella Ray LPN September 13, 2023 3:43 PM [facility] 09-13-2023 Miscellaneous Notes Referral received, given to pss computer processing scheduler to reach out to patient for an appointment. Ella Ray LPN September 13, 2023 3:43 PM No appointment or referral for this patient. Ella Ray LPN September 13, 2023 3:38 PM Pr[address]anth from Dr. Lino's office at [facility] calling and asking for update on appointment with Dr. Guo. I didn't see anything scheduled. Prashanth will fax referral again. documented in this encounter [facility] 09-13-2023 Telephone encounter Note No appointment or referral for this patient. Ella Ray LPN September 13, 2023 3:38 PM [facility] 09-13-2023 Telephone encounter Note Prashanth from Dr. Lino's office at [facility] calling and asking for update on appointment with Dr. Guo. I didn't see anything scheduled. Prashanth will fax referral again. [facility] 09-05-2023 Instructions Hemalatha Anthony PA-C - 09/05/2023 10:28 AM EDT Laboratory work up Physical therapy for low back and sciatica Skin biopsy to look for small fiber neuropathy Follow up in 6 months POTS Conservative Measures Increased water intake (2-2.5 liters of water daily) Increased salt intake (3-5 grams daily) Compression stockings Cardiac Rehab/ increased Exercise Shared medical appointment with Dr. Karimi POTS Manual: Read the POTS manual online. This will help you understand your POTS diagnosis, work with your medical team, and includes detailed instructions and tips for improved daily living with POTS. http://www.[facility].org/po ts Orthostatic Workout There are videos /playlist/podcast to viewed and helped for exercises and wellness for POTS and Orthostatics Instructions:https://www.[employer]. com/channel/WM7ZJmMZw7KPDGVIlHaaV hDA In your search bar in the internet [...] support people Also follow us along on [employer] account POTSWILSON Also besides the exercise are some morales mediation videos . Click and watch. Utilize when your adrenaline is active. May even play music to go along. Play the video as often you want to help as an additional tool to reset the adrenaline https://www.[employer].com/watch?v=h GPg7eGsNH6 https://www.[employer].com/watch?v=c 6rMgyI-3pU&feature=youtu.be https://www.[employer].com/watch?v=K 0fQ3mAfX04 Shared Medical Appointments To schedule the [facility] please call during Sunday-Sunday 9 am - 4 pm , THE CALL CENTER # [phone] The CALL CENTER IS OPEN 24 hours/ 7 DAYS PER WEEK Please be patient with the phone line. We are honored and glad to have you part of the SMA for POTS Welcome to [facility] (SHARED MEDICAL APPOINTMENTS) We have learned at the [facility] and especially in my work and [...] and the Autonomic Team Scheduling Phone numbers [facility] Scheduling [phone] Neurological [place] Scheduling [phone] Cardiology - General [phone] Endocrinology [phone] Ophthalmology [phone] Physical Therapy/ Occupational Therapy [phone] Cardiology General [phone] Holter walk in [phone] walk in J-2-2 EKG walk in [phone] walk in J-1-4 Echo same day [phone] Cardiac tilt [phone] The nursing staff and medical assistants are a major part of YOUR TREATMENT TEAM and will be handling your phone calls, [employer] messages and inquiries, if any. Unless explicitly [...] do not comment on most testing on [employer] in a message or commentary unless there [...] with this process. documented in this encounter [facility] 09-05-2023 Note HNO ID: [id number] Author: HEMALATHA ANTHONY PA-C Service: ? Author Type: Physician Rn Concurrent Review Type: Progress Notes Filed: 09/05/2023 11:20 Note Text: ESTABLISHED PATIENT VISIT Last visit: 05/09/23 ASSESSMENT/PLAN: 1. Altered mental status, unspecified altered mental status type - ICD9: 780.97, ICD10: R41.82 (primary diagnosis) Patient with 2 episodes of loss of consciousness, the first was while in the shower and the second was while she was playing video games. Notes that she felt very dizzy before and also had cold clammy sweats with loss of consciousness following. Both were unwitnessed, unsure how long she was out for. Did bite her cheek, but no other tongue biting, no incontinence with this. Has not happened in the last month. Notes this is the first time she is passed out. Unclear etiology, low suspicion for seizure, but due to loss of consciousness without known trigger will obtain EEG to rule out any epileptiform changes. Discussed seizure precautions including not driving for 6 months after incident, bathing, climbing ladders, etc. Patient agrees and understands. Additionally, will have patient follow-up with cardiology as she has not seen them since her episodes of loss of consciousness. Could be related to POTS, tilt table did not show orthostatic hypotension. Discussed changing metoprolol but patient would like to continue dosage at this time. 2. POTS (postural orthostatic tachycardia syndrome) - ICD9: 427.89, ICD10: G90.A Patient notes some symptoms better symptoms are worse since last appointment. Is tolerating metoprolol, notes that complete resolution in her headaches since starting this medication but reports 2 episodes of syncope versus loss of consciousness as noted above. Unclear etiology regarding this. Patient is not exercising, but is drinking upwards of 100 ounces of water a day and wearing compression. Encouraged exercise and discussed at length the benefits. Also discussed your medical appointments and patient would like to try this. Will continue metoprolol 25 mg at this time as patient feels it is significantly benefited some aspects of her dizziness as well as her headaches. 3. Nausea - ICD9: 787.02, ICD10: R11.0 4. Obstructive sleep apnea - ICD9: 327.23, ICD10: G47.33 Patient with signs and symptoms of sleep apnea including frequent awakenings at night, daytime fatigue, dry mouth in the morning. Unsure if she snores. Also notes 30 pound weight gain since starting metoprolol. Discussed increased risk of sleep apnea, would like to treat conservatively at this time. Will have patient sleep on her side, treat allergies as she notes increased allergies lately but unable to afford allergy medications. Will prescribe Zyrtec as she has used this in the past and tolerated it well. Patient also noting some worsening depression. Discussed this could be a side effect of beta-blockers as well as obstructive sleep apnea. Encouraged her to reach out to her primary care who is treating her for anxiety with Prozac. Patient agrees understands, no suicidal thoughts. Patient was also found to have B12 deficiency, encouraged continuing supplementation for at least 6 months and then will redraw at next visit. Hemalatha Anthony PA-C CHIEF COMPLAINT: follow up HISTORY OF PRESENT ILLNESS: Ace Leonardo is a 22 year old female, There were no vitals taken for this visit. with a PMH significant for headache and POTS . Last seen 05/09/23 for AMS, POTS. 2 episodes of LOC ordered EEG. Encouraged FU with cards. On metoprolol for POTs and tolerated well. Gastric emptying study was normal. EEG normal. B12 supplementation was encouraged and follow up with PCP for depression. Patient presents for follow-up. Since last appointment she has not had any further episodes of loss of consciousness. Notes that her dizziness is only present when she is in the shower, otherwise no episodes of dizziness, headaches have completely resolved. Notes that her sleep is still poor, states it is hard to stay asleep sleeping over 5 to 10 hours based on her work schedule. Did talk about sleep apnea last appointment and notes that the yrte did not seem to help any allergies. Did see an web producer and did not test positive for any allergies. Was diagnosed with chronic rhinitis. Notes her depression has improved as well, has been following with primary care for this. Did not see her surgical elastic knitter hand frame, did not have skin biopsy done as well. Notes good water intake and activity level. Is very active at work and works 5 days a week. Notes good salt intake, blood pressure was normal today. Patient does have new concern, notes that her fingers have been getting swollen from time to time on hotter days. This has been hot the last week her hands have been more swollen. They are not painful, but she does note some skin color changes, states they have white and red splotches. Also reports new left hip (more content not included)... [facility] 09-05-2023 History of Present illness Narrative ESTABLISHED PATIENT VISIT Last visit: 05/09/23 ASSESSMENT/PLAN: 1. Altered mental status, unspecified altered mental status type - ICD9: 780.97, ICD10: R41.82 (primary diagnosis) Patient with 2 episodes of loss of consciousness, the first was while in the shower and the second was while she was playing video games. Notes that she felt very dizzy before and also had cold clammy sweats with loss of consciousness following. Both were unwitnessed, unsure how long she was out for. Did bite her cheek, but no other tongue biting, no incontinence with this. Has not happened in the last month. Notes this is the first time she is passed out. Unclear etiology, low suspicion for seizure, but due to loss of consciousness without known trigger will obtain EEG to rule out any epileptiform changes. Discussed seizure precautions including not driving for 6 months after incident, bathing, climbing ladders, etc. Patient agrees and understands. Additionally, will have patient follow-up with cardiology as she has not seen them since her episodes of loss of consciousness. Could be related to POTS, tilt table did not show orthostatic hypotension. Discussed changing metoprolol but patient would like to continue dosage at this time. 2. POTS (postural orthostatic tachycardia syndrome) - ICD9: 427.89, ICD10: G90.A Patient notes some symptoms better symptoms are worse since last appointment. Is tolerating metoprolol, notes that complete resolution in her headaches since starting this medication but reports 2 episodes of syncope versus loss of consciousness as noted above. Unclear etiology regarding this. Patient is not exercising, but is drinking upwards of 100 ounces of water a day and wearing compression. Encouraged exercise and discussed at length the benefits. Also discussed your medical appointments and patient would like to try this. Will continue metoprolol 25 mg at this time as patient feels it is significantly benefited some aspects of her dizziness as well as her headaches. 3. Nausea - ICD9: 787.02, ICD10: R11.0 4. Obstructive sleep apnea - ICD9: 327.23, ICD10: G47.33 Patient with signs and symptoms of sleep apnea including frequent awakenings at night, daytime fatigue, dry mouth in the morning. Unsure if she snores. Also notes 30 pound weight gain since starting metoprolol. Discussed increased risk of sleep apnea, would like to treat conservatively at this time. Will have patient sleep on her side, treat allergies as she notes increased allergies lately but unable to afford allergy medications. Will prescribe Zyrtec as she has used this in the past and tolerated it well. Patient also noting some worsening depression. Discussed this could be a side effect of beta-blockers as well as obstructive sleep apnea. Encouraged her to reach out to her primary care who is treating her for anxiety with Prozac. Patient agrees understands, no suicidal thoughts. Patient was also found to have B12 deficiency, encouraged continuing supplementation for at least 6 months and then will redraw at next visit. Hemalatha Anthony PA-C CHIEF COMPLAINT: follow up HISTORY OF PRESENT ILLNESS: Ace Leonadro is a 22 year old female, There were no vitals taken for this visit. with a PMH significant for headache and POTS . Last seen 05/09/23 for AMS, POTS. 2 episodes of LOC ordered EEG. Encouraged FU with cards. On metoprolol for POTs and tolerated well. Gastric emptying study was normal. EEG normal. B12 supplementation was encouraged and follow up with PCP for depression. Patient presents for follow-up. Since last appointment she has not had any further episodes of loss of consciousness. Notes that her dizziness is only present when she is in the shower, otherwise no episodes of dizziness, headaches have completely resolved. Notes that her sleep is still poor, states it is hard to stay asleep sleeping over 5 to 10 hours based on her work schedule. Did talk about sleep apnea last appointment and notes that the Zyrtec did not seem to help any allergies. Did see an web producer and did not test positive for any allergies. Was diagnosed with chronic rhinitis. Notes her depression has improved as well, has been following with primary care for this. Did not see her surgical elastic knitter hand frame, did not have skin biopsy done as well. Notes good water intake and activity level. Is very active at work and works 5 days a week. Notes good salt intake, blood pressure was normal today. Patient does have new concern, notes that her fingers have been getting swollen from time to time on hotter days. This has been hot the last week her hands have been more swollen. They are not painful, but she does note some skin color changes, states they have white and red splotches. Also reports new left hip pain, did see her primary care and was told it was likely sciatica. Was given a Medrol Dosepak without any significant improvement in her back or her hands. No recent falls. Notes that there was a nodule found on her thyroid but laboratory workup was negative. She also had a repeat B12 drawn and it was 500. Additionally, patient having some fluctuating diarrhea and constipation, notes this happens in the same bowel movement. Has appointment with GI for upper endoscopy ordered but not scheduled. . REVIEW OF SYSTEMS GENERAL:No weight loss, malaise or fevers. HEENT:Negative for frequent or significant headaches, No changes in hearing or vision, no nose bleeds or other nasal problems NECK:Negative for lumps, goiter, pain and significant neck swelling RESPIRATORY: Negative for cough, wheezing or shortness of breath. CARDIOVASCULAR: Negative for chest pain, leg swelling or palpitations. GASTROINTESTINAL: Negative for abdominal discomfort, blood in stools or black stools or change in bowel habits GENITOURINARY: No history of dysuria, frequency or incontinence MUSCULOSKELETAL: Negative for joint pain or swelling, back pain or muscle pain. NEUROLOGIC:Negative for focal numbness or weakness, headaches and dizziness or syncope, vision changes, speech/languag changes - EXCEPT that as per HPI above. SKIN:Negative for lesions, rash, and itching. PSYCHIATRIC: Negative for sleep disturbance, mood disorder and recent psychosocial stressors. HEMATOLOGIC/LYMPHATIC/IMMUNOLOGIC :Negative for prolonged bleeding, bruising easily or swollen nodes. ENDOCRINE: Negative for cold or heat intolerance, polyuria, polydipsia and goiter. The remainder of the ROS was reviewed and is negative. LAB/IMAGING: Those performed since patient's last visit have been reviewed. Gastric emptying study 05/18/23 IMPRESSION: No RATE OF GASTRIC EMPTYING OF A SOLID MEAL. No evidence of gastroparesis. EEG 06/26/23 Impression: This awake and sleep EEG is within normal limits. No epileptiform discharges or EEG seizures were seen during this recording. MEDICATIONS: L-norgest/e.estradiol-e.estrad (JAIMIESS ORAL) mecobalamin, vitamin B12, (B12 ACTIVE) 1,000 mcg chew omeprazole (PRILOSEC) 40 mg capsule omeprazole (PRILOSEC) 20 mg capsule Takes 40mg before breakfast and 20mg before dinner Fluticasone Furoate (FLONASE SENSIMIST) 27.5 mcg/actuation nasal spray Use 1 Morley in each nostril two times a day. ketotifen fumarate (ZADITOR) 0.025 % (0.035 %) ophthalmic solution Use 1 Drop in both eyes two times a day as needed. metoprolol succinate ER (TOPROL XL) 25 mg 24 hr tablet Take 1 tablet by mouth once daily. cetirizine (ZYRTEC) 10 mg tablet Take 1 tablet by mouth once daily. FLUoxetine (PROZAC) 40 mg capsule Take 40 mg by mouth once daily. HISTORIES History reviewed. No pertinent past medical history. FAMILY HISTORY Problem Relation Age of Onset Seizures Maternal Grandmother Heart Unknown maternal and paternal side Hypertension Unknown maternal great mother Cancer Unknown brain cancer- maternal great aunt other (hearing problems [Other]) Unknown maternal grandmother SOCIAL HISTORY Social History Tobacco Use Smoking status: Former Types: Cigarettes Smokeless tobacco: Never Vaping Use Vaping Use: Never used PHYSICAL EXAMINATION BP 121/80 Pulse 69 Resp 18 Wt 100.7 kg (222 lb) LMP (LMP Unknown) SpO2 100% BMI 36.02 kg/m GENERAL EXAM: General appearance: NAD, pleasant. HEENT: NC/AT, nasal congestion absent, no oral lesions, membranes moist. NECK: No masses, supple. Lungs: Breathing comfortably Extr: Moves all extremities without difficulty Skin: Cool to touch. No rash. NEUROLOGICAL EXAM: General: Awake, alert, oriented x3 (person,place,time), speech fluent, no dysarthria; comprehension, naming, repetition intact. Short and syrup mixer helper memory intact. CN: PERRL, fundi appear normal including no evidence of papilledema, EOMI and without nystagmus, VFF to confrontation, facial sensation and strength are normal and symmetric, hearing is intact to finger rub bilaterally, palate and tongue movements are intact and symmetric. SCM and trapezius strength normal. Motor: Normal tone, bulk and strength (5/5) bilaterally (throughout extremities x4). Reflexes: 2/4 and symmetric Coordination: FNF intact. No tremors. Sensation: Decrease in temperature in the lower extremities compared to the upper. Gait: Narrow based and stable with normal stride and arm swing. Assessment and Plan: ASSESSMENT/PLAN: 1. Bilateral hand swelling - ICD9: 729.81, ICD10: M79.89 (primary diagnosis) Patient reporting some bilateral hand swelling on hot days. No significant change in salt intake. Does report some weight gain but notes this is fluctuating. No pain in the joints when it happens, will obtain basic blood work to look for common etiology including rheumatologic cause of patient's symptoms. 2. Sciatica of left side - ICD9: 724.3, ICD10: M54.32 Patient reporting some left-sided hip pain, diagnosed with sciatica by her primary care. Asking for common treatments for this after steroid pack did not help. Discussed physical therapy and patient is amenable. Also reporting some chronic low back pain as well. 3. Nausea - ICD9: 787.02, ICD10: R11.0 Patient following with GI, scheduled to have upper endoscopy. Gastric emptying study was negative. 4. Obstructive sleep apnea - ICD9: 327.23, ICD10: G47.33 Patient still reporting some poor sleep, deferring any sleep studies at this time. Encouraged conservative therapy for sleep apnea including weight loss, sleeping on side. 5. POTS (postural orthostatic tachycardia syndrome) - ICD9: 427.89, ICD10: G90.A 6. Altered mental status, unspecified altered mental status type - ICD9: 780.97, ICD10: R41.82 7. Orthostatic hypotension - ICD9: 458.0, ICD10: I95.1 Patient has significant improvement in her POTS symptoms since last appointment. Is compliant with metoprolol 25 mg XL. No new symptoms or concerns. No further episodes of loss of consciousness, EEG was negative for any epileptiform changes. Notes that she will occasionally get dizziness when she is in the shower but at no other time. No significant lightheadedness or presyncope. Encouraged conservative therapy including water intake, compression socks, exercise and salt. Did order skin biopsy last appointment due to concerns of possible small fiber neuropathy contributing to orthostatic hypotension. Patient has not yet scheduled this, encouraged to do so today. 8. Other headache syndrome - ICD9: 339.89, ICD10: G44.89 Headaches have completely resolved. No other new symptoms that would warrant additional workup at this time. Patient agreeable to treatment plan of care at this time, questions were answered. Patient to follow-up in 6 months or sooner should any symptoms change or worsen. Hemalatha Anthony PA-C I spent a total of 45 minutes on the date of the service which included preparing to see the patient, [id number] patient care, completing clinical documentation, obtaining and/or reviewing separately obtained history, performing a medically appropriate examination, counseling and educating the patient/family/caregiver, and ordering medications, tests, or procedures. This document has been created with the use of voice recognition technology. It may contain inaccuracies: (e.g. misspellings, inaccurate syntax or word sense) that have escaped review. documented in this encounter [facility] 08-31-2023 Instructions Zita Tamayo MD - 08/31/2023 9:03 AM EDT Flonase sensimist 1 spray in each nostril twice a day. Ketotifen eye drops documented in this encounter [facility] 08-31-2023 Note HNO ID: [id number] Author: ZITA TAMAYO MD Service: ? Author Type: Physician Type: Progress Notes Filed: 08/31/2023 09:52 Note Text: [facility] New Patient Visit Note HPI Ace Leonardo is a 22 year old female presented today with her boyfriend for evaluation of possible food allergy, environmental allergies. Noticed undigested food in her bowel movements. Sxs have been going on for a long time. Food of concerns are lettuce, peanuts, corn, beans. Dairy and chicken come right up - regurgitation. Hx negative for IgE mediated reactions with any food. Denies weight loss. Seen by GI, Noted to have a normal barium swallow evaluation. Has been on omeprazole for the past month with some improvement. Planning for EGD. C/o sneezing, itching, PND triggering cough. Sxs have been going on for years, worse in spring and fall. Tried Claritin, Zyrtec, Benadryl, and OTC nasal spray. Environmental History: Residence: [place] Pets: 2 cats, 1 dog History reviewed. No pertinent past medical history. History reviewed. No pertinent surgical history. FAMILY HISTORY Problem Relation Age of Onset Seizures Maternal Grandmother Heart Unknown maternal and paternal side Hypertension Unknown maternal great mother Cancer Unknown brain cancer- maternal great aunt other (hearing problems [Other]) Unknown maternal grandmother Social History Tobacco Use Smoking status: Former Types: Cigarettes Smokeless tobacco: Never Current Outpatient Medications Medication Sig L-norgest/e.estradiol-e.estrad (JAIMIESS ORAL) mecobalamin, vitamin B12, (B12 ACTIVE) 1,000 mcg chew omeprazole (PRILOSEC) 40 mg capsule omeprazole (PRILOSEC) 20 mg capsule Takes 40mg before breakfast and 20mg before dinner metoprolol succinate ER (TOPROL XL) 25 mg 24 hr tablet Take 1 tablet by mouth once daily. cetirizine (ZYRTEC) 10 mg tablet Take 1 tablet by mouth once daily. FLUoxetine (PROZAC) 40 mg capsule Take 40 mg by mouth once daily. No current facility-administered medications for this visit. ALLERGIES No Known Allergies Review of Systems Constitutional: Neg for fever GI:see HPI Endocrine: Neg for thyroid disease Derm: Neg for rash Neurology: Diagnosed with dysautonomia. On BB -.Following with neurology. Rheumatology: Neg for joints swelling. All other systems reviewed and negative except as documented above. Blood pressure 128/83, pulse 83, resp. rate 18, weight 100 kg (220 lb 7.4 oz), SpO2 99%. Body mass index is 35.77 kg/m?. Physical Exam: General: NAD HEENT: NC/AT, PERRLA, EOMI, no pallor/icterus, MMM, no thrush, oropharynx without exudates. +Clear PND was noted. Neck: supple Chest: CTA b/l, no crackles, rales or wheezing CV: RRR, normal S1/S2, no murmurs, rubs or gallops Abd: soft, non tender nor distended, no hepatosplenomegaly Ext: no cyanosis, clubbing or edema Skin: no rashes, bruises or seborrhea Neuro: AAOx4, non focal exam Allergy Skin Testing 08/31/23 I personally reviewed this patient's results and interpreted the results as follows: Skin testing with inhalants negative. Imaging Gastric emptying study 05/2023: No evidence of gastroparesis Assessment and Recommendations Ace was seen today for consult. Diagnoses and all orders for this visit: Adverse reaction to food, subsequent encounter Gastroesophageal reflux disease With the lack of IgE mediated reactions with food, skin testing with food is not indicated. Continue with PPI and follow closely with GI. Chronic rhinitis Other chronic allergic conjunctivitis of both eyes Triggers of non allergic rhinitis were discussed. Sxs not well controlled. Would benefit from Flonase sensimist 1 s/n BID. Ketotifen eye gtt PRN Other orders - Fluticasone Furoate (FLONASE SENSIMIST) 27.5 mcg/actuation nasal spray; Use 1 Morley in each nostril two times a day. - ketotifen fumarate (ZADITOR) 0.025 % (0.035 %) ophthalmic solution; Use 1 Drop in both eyes two times a day as needed. Return to clinic in 3 months, sooner if there's any concern. AVS provided to patient and included recap of today's appointment and medical plan. Zita Tamayo MD Allergy AND Clinical Immunology [facility] 08-31-2023 History of Present illness Narrative [facility] New Patient Visit Note HPI Ace eLonardo is a 22 year old female presented today with her boyfriend for evaluation of possible food allergy, environmental allergies. Noticed undigested food in her bowel movements. Sxs have been going on for a long time. Food of concerns are lettuce, peanuts, corn, beans. Dairy and chicken come right up - regurgitation. Hx negative for IgE mediated reactions with any food. Denies weight loss. Seen by GI, Noted to have a normal barium swallow evaluation. Has been on omeprazole for the past month with some improvement. Planning for EGD. C/o sneezing, itching, PND triggering cough. Sxs have been going on for years, worse in spring and fall. Tried Claritin, Zyrtec, Benadryl, and OTC nasal spray. Environmental History: [place]idence[place] Pets: 2 cats, 1 dog History reviewed. No pertinent past medical history. History reviewed. No pertinent surgical history. FAMILY HISTORY Problem Relation Age of Onset Seizures Maternal Grandmother Heart Unknown maternal and paternal side Hypertension Unknown maternal great mother Cancer Unknown brain cancer- maternal great aunt other (hearing problems [Other]) Unknown maternal grandmother Social History Tobacco Use Smoking status: Former Types: Cigarettes Smokeless tobacco: Never Current Outpatient Medications Medication Sig L-norgest/e.estradiol-e.estrad (JAIMIESS ORAL) mecobalamin, vitamin B12, (B12 ACTIVE) 1,000 mcg chew omeprazole (PRILOSEC) 40 mg capsule omeprazole (PRILOSEC) 20 mg capsule Takes 40mg before breakfast and 20mg before dinner metoprolol succinate ER (TOPROL XL) 25 mg 24 hr tablet Take 1 tablet by mouth once daily. cetirizine (ZYRTEC) 10 mg tablet Take 1 tablet by mouth once daily. FLUoxetine (PROZAC) 40 mg capsule Take 40 mg by mouth once daily. No current facility-administered medications for this visit. ALLERGIES No Known Allergies Review of Systems Constitutional: Neg for fever GI:see HPI Endocrine: Neg for thyroid disease Derm: Neg for rash Neurology: Diagnosed with dysautonomia. On BB -.Following with neurology. Rheumatology: Neg for joints swelling. All other systems reviewed and negative except as documented above. Blood pressure 128/83, pulse 83, resp. rate 18, weight 100 kg (220 lb 7.4 oz), SpO2 99%. Body mass index is 35.77 kg/m . Physical Exam: General: NAD HEENT: NC/AT, PERRLA, EOMI, no pallor/icterus, MMM, no thrush, oropharynx without exudates. +Clear PND was noted. Neck: supple Chest: CTA b/l, no crackles, rales or wheezing CV: RRR, normal S1/S2, no murmurs, rubs or gallops Abd: soft, non tender nor distended, no hepatosplenomegaly Ext: no cyanosis, clubbing or edema Skin: no rashes, bruises or seborrhea Neuro: AAOx4, non focal exam Allergy Skin Testing 08/31/23 I personally reviewed this patient's results and interpreted the results as follows: Skin testing with inhalants negative. Imaging Gastric emptying study 05/2023: No evidence of gastroparesis Assessment and Recommendations Ace was seen today for consult. Diagnoses and all orders for this visit: Adverse reaction to food, subsequent encounter Gastroesophageal reflux disease With the lack of IgE mediated reactions with food, skin testing with food is not indicated. Continue with PPI and follow closely with GI. Chronic rhinitis Other chronic allergic conjunctivitis of both eyes Triggers of non allergic rhinitis were discussed. Sxs not well controlled. Would benefit from Flonase sensimist 1 s/n BID. Ketotifen eye gtt PRN Other orders - Fluticasone Furoate (FLONASE SENSIMIST) 27.5 mcg/actuation nasal spray; Use 1 Morley in each nostril two times a day. - ketotifen fumarate (ZADITOR) 0.025 % (0.035 %) ophthalmic solution; Use 1 Drop in both eyes two times a day as needed. Return to clinic in 3 months, sooner if there's any concern. AVS provided to patient and included recap of today's appointment and medical plan. Zita Tamayo MD Allergy & Clinical Immunology [facility] documented in this encounter [facility] 08-31-2023 Nurse Note NEW. Patient here for environmental/food allergies - states Food - GERD, noted undigested food in BM x years Seasonal - sneezing, itching eyes, clearing throat, congestion, PND worst in Spring to Summer months Last date Zyrtec she took was 08/28/2023. [facility] 08-31-2023 Nurse Note NEW. Patient here for environmental/food allergies - states Food - GERD, noted undigested food in BM x years Seasonal - sneezing, itching eyes, clearing throat, congestion, PND worst in Spring to Summer months Last date Zyrtec she took was 08/28/2023. documented in this encounter [facility] 06-18-2023 Miscellaneous Notes Please see results: Scan on 06/18/2023 3:15 PM by Provider, ADA Dior: Overnight Pulse Ox Deana Gastelum LPN Fax sent to [facility] requesting records. Deana Gastelum LPN documented in this encounter [facility] 05-18-2023 History of Present illness Narrative RADIOLOGY SERVICE PROGRESS NOTE SERVICE [...] PATIENT PRESENTS WITH AN IMPLANTABLE OR ATTACHED REDRYING MACHINE OPERATOR: N/A CREATININE: Creatinine Date Value Ref Range [...] [address] PERFORMED: No IV SITE: [place] only - not applicable, oral or physician administered agents given to patient POST EXAM PIV STATUS: Not applicable PROCEDURE TYPE: NM GET: 1.1 mCi Tc99m SULFUR COLLOID was administered orally via 4 ounces of Egg Beaters,2 pieces of toast, 1 ounce of jelly with 8 ounces of water orally ADMINISTRATION TIME: 08:10 PATIENT DISCHARGED TO: Ambulatory patient, left [place] department area. A Diagnostic radioactive procedure has taken place, with no further precautions necessary other than routine body substance precautions. More information regarding radiation safety can be found using this link: [email or web address] [email or web address] SIGNATURE: USHA Mims) PATIENT NAME: Ace Leonardo DATE: May 18, 2023 TIME: 10:20 AM PAGER/CONTACT #: documented in this encounter [facility] 05-18-2023 Note HNO ID: [id number] Author: MOI PORTILLO RT (R) Service: Nuclear Medicine Author Type: Technologist Type: [...] PATIENT PRESENTS WITH AN IMPLANTABLE OR ATTACHED REDRYING MACHINE OPERATOR: N/A CREATININE: Creatinine Date Value Ref Range [...] 08:10 PATIENT DISCHARGED TO: Ambulatory patient, left [place] department area. A Diagnostic radioactive procedure has taken place, with no further precautions necessary other than routine body substance precautions. More information regarding radiation safety can be found using this link: [email or web address]%20Medicine [email or web address] SIGNATURE: RT Prasanna(R) PATIENT NAME: Ace Leonardo DATE: May 18, 2023 TIME: 10:20 AM PAGER/CONTACT #: [facility] 05-09-2023 Note HNO ID: [id number] Author: HEMALATHA ANTHONY PA-C Service: ? Author Type: Physician Rn Concurrent Review Type: Progress Notes Filed: 05/09/2023 11:22 Note [...] headache, MRI of the brain obtained at [facility] is negative for signs of intracranial [...] COMPLAINT: follow up HISTORY OF PRESENT ILLNESS: Ace Leonardo is a 22 year old female, [...] up frequently throughout (more content not included)... [facility] 02-22-2023 Miscellaneous Notes Faxed Prior Authorization to [facility] [phone] for Metoprolol 25 mg, 11 pages 02/22/2023. Placed documents in [place] location. Patient notified MyChart. Diane Hickey LPN Prior Authorization Documentation Prior authorization requested for the following medication: Medication: metoprolol Provider: [employer] Name: [employer] Phone number: [phone] Patient ID number: [id number] Pharmacy Name: [facility] Patient reports she needs prior auth for metoprolol documented in this encounter [facility] 01-09-2023 Note HNO ID: [id number] Author: Hemalatha Anthony PA-C Service: ? Author Type: Physician Rn Concurrent Review Type: Progress Notes Filed: 01/09/2023 4:34 PM Note Text: [facility] for General Neurology Follow up CC: Headache Follow up Last Visit: 10/04/22 Assessment AND Plan: Ace Leonardo is a 22 year old female with a history of GERD. Her examination demonstrates mild small fiber abnormalities to the hands and feet as noted above. Negative orthostats today (noted difficulty with reading on machine, needed manual). Patient with lightheadedness and presyncope onset a few months ago. Onset with sitting to standing, exercise. Has been evaluated by cardiology at [facility] with normal ECHO, normal holter, and normal [...] the completion of her tilt able test. Ace was seen today for new patient. Today: [...] she has lightheadedness, previous MRI imaging at [facility] was negative. Notes that the headaches [...] for chest pain, (more content not included)... [facility] 12-22-2022 Miscellaneous Notes Tilt table test showed [...] Pt and advise. documented in this encounter [facility] 10-04-2022 Instructions Hemalatha Anthony PA-C - [...] tips for improved daily living with POTS. [email or web address].hurtclinic.org/po ts Orthostatic Workout There are videos /playlist/podcast to viewed and helped for exercises and wellness for POTS and Orthostatics Instructions:https://www.[employer]. com/channel/[email or web address] hDA In your search bar in the internet [...] support people Also follow us along on [employer] account ISAURA Also besides the exercise are some morales mediation videos . Click and watch. Utilize when your adrenaline is active. May even play music to go along. Play the video as often you want to help as an additional tool to reset the adrenaline https://www.youMethodube.com/watch?v=h YTj9aBmKF6 https://www.BIOe[employer].com/watch?v=c 6rMgyI-3pU&feature=youtu.be https://www.[employer]ube.com/watch?v=K 0bT7wFmK60 Shared Medical Appointments To schedule the [facility] please call during Sunday-Sunday 9 am - 4 pm , THE CALL CENTER # [phone] The CALL CENTER IS OPEN 24 hours/ 7 DAYS PER WEEK Please be patient with the phone line. We are honored and glad to have you part of the SMA for POTS Welcome to [facility] (SHARED MEDICAL APPOINTMENTS) We have learned at the [facility] and especially in my work and [...] and the Autonomic Team Scheduling Phone numbers [facility] Scheduling [phone] Neurological [place] Scheduling [phone] Cardiology - General [phone] Endocrinology [phone] Ophthalmology [phone] Physical Therapy/ Occupational Therapy [phone] Cardiology General [phone] Holter walk in [phone] walk in J-2-2 EKG walk in [phone] walk in J-1-4 Echo same day [phone] Cardiac tilt [phone] The nursing staff and medical assistants are a major part of YOUR TREATMENT TEAM and will be handling your phone calls, [employer] messages and inquiries, if any. Unless explicitly [...] do not comment on most testing on [employer] in a message or commentary unless there [...] with this process. documented in this encounter [facility] 10-04-2022 History of Present illness Narrative Images from the original note were not included. Neurology Outpatient Clinic Date: October 04, 2022 Patient Name: Ace Leonardo Referring physician: Bernadette Tirado [address] [facility] [address] [facility] [address] Consult requested for dizziness by Dr. Tirado. Recommendations will be communicated via shared medical record or US mail. Primary physician: none Reason for Evaluation: Dizziness Subjective HPI Ace Leonardo is a 22 year old female [...] had bent over while at work at [email or web address], and then quickly stood up causing her [...] Power: MUSCLES Upper Extremity RIGHT LEFT Deltoid 5/5 5/5 Biceps 5/5 5/5 Triceps 5/5 5/5 Wrist Extension 5/5 5/5 Wrist Flexion 5/5 5/5 Finger Flexion 5/5 5/5 Finger Extension 5/5 5/5 Finger Abd 5/5 5/5 Finger Add 5/5 5/5 MUSCLES Lower Extremity RIGHT LEFT Hip Flexion 5/5 5/5 Hip Extension 5/5 5/5 BiFem (Knee Flex) 5/5 5/5 Quads (Knee Ext) 5/5 5/5 Gastroc (Plantflx) 5/5 5/5 TibAnt (Dorsiflx) 5/5 5/5 FlxHLong (Toe Flex) 5/5 5/5 ExtHLong (Toe Ext) 5/5 5/5 Sensory Examination Intact to vibration throughout, intact proprioception. Minimally decreased sensation to temperature in both the hands and feet equally and bilaterally, minimally decreased to sharp in the feet bilaterally. Reflexes Right Left Bicep 2/4 2/4 Tricep 2/4 2/4 BrRad 2/4 2/4 Knee 2/4 2/4 Ankle 2/4 2/4 Glaser Response Negative Negative Coordination: finger-to- nose-finger intact bilaterally and [id number]-lr-[id number] intact bilaterally. Gait: Patient's gait is normal, can heel and toe walk and can tandem walk Romberg: Negative DATA REVIEWED Actual films/image/tracing reviewed and summarized as follows: ECHO, mri brain, tilt table Old records reviewed and summarized as follows: [facility] (cardio and pcp) Assessment/Plan Assessment & Plan: Ace Leonardo is a 22 year old female with a history of GERD. Her examination demonstrates mild small fiber abnormalities to the hands and feet as noted above. Negative orthostats today (noted difficulty with reading on machine, needed manual). Patient with lightheadedness and presyncope onset a few months ago. Onset with sitting to standing, exercise. Has been evaluated by cardiology at [facility] with normal ECHO, normal holter, and normal [...] the completion of her tilt able test. Ace was seen today for new patient. Diagnoses and all orders for this visit: Orthostatic hypotension - TILT TABLE EVALUATION She should return to see me in 2-3 months. I spent a total of 50 minutes on the date of the service which included preparing to see the patient, [id number] patient care, completing clinical documentation, obtaining and/or reviewing separately obtained history, performing a medically appropriate examination, counseling and educating the patient/family/caregiver, and ordering medications, tests, or procedures. Hemalatha Anthony PA-C [facility] Neurology This document has been created with the use of voice recognition technology. It may contain inaccuracies: (e.g. misspellings, inaccurate syntax or word sense) that have escaped review. documented in this encounter [facility] 09-14-2022 Miscellaneous Notes Received referral request from [facility] for this patient to be seen for lightheadedness. Referral printed off and given to Stephanie Joyce. Deana Gastelum LPN documented in this encounter [facility] 08-03-2021 History of Present illness Narrative Patient came in with complaints of headache. She said she hit her head on something at work and has been experiencing a headache and dizziness ever since. patient said she was having light sensitivity as well but currently not experiencing that symptoms. At this time patient is being referred to the ER for evaluation. documented in this encounter [facility] Evaluation note Diagnosis Injury of head, initial encounter- Primary [facility] Diagnosis Orthostatic hypotension- Primary Dizziness Dizziness and giddiness [facility] Diagnosis Nausea Nausea alone Dyspepsia Dyspepsia and other specified disorders of function of stomach [facility] Diagnosis Adverse reaction to food, subsequent encounter- Primary Gastroesophageal reflux disease, unspecified whether esophagitis present Chronic rhinitis Other chronic allergic conjunctivitis of both eyes [facility] Diagnosis Bilateral hand swelling- Primary Sciatica of left side Sciatica Nausea Nausea alone Obstructive sleep apnea Obstructive sleep apnea (adult) (pediatric) POTS (postural orthostatic tachycardia syndrome) Tachycardia, unspecified Altered mental status, unspecified altered mental status type Orthostatic hypotension Other headache syndrome [facility] Diagnosis Gastroesophageal reflux disease, unspecified whether esophagitis present- Primary [facility] Diagnosis Gastro-esophageal reflux disease without esophagitis- Primary Esophageal reflux Gastroesophageal reflux disease, unspecified whether esophagitis present [facility] Diagnosis Procedure not carried out- Primary Procedure not carried out for other reasons [facility] Diagnosis Gastroesophageal reflux disease, unspecified whether esophagitis present- Primary [facility]* Diagnosis Gastroesophageal reflux disease, unspecified whether esophagitis present- Primary documented in this encounter [facility] note* Diagnosis Gastroesophageal reflux disease, unspecified whether esophagitis present- Primary Regurgitation of food Class 3 severe obesity due to excess calories without serious comorbidity with body mass index (BMI) of 40.0 to 44.9 in adult (HCC) Gastroesophageal reflux disease, unspecified whether esophagitis present Gastroesophageal reflux disease, unspecified whether esophagitis present documented in this encounter [facility] note* Diagnosis Gastroesophageal reflux disease, unspecified whether esophagitis present Pre-op examination Preoperative examination, unspecified Postural orthostatic tachycardia syndrome (POTS) MIRTA (obstructive sleep apnea) Obstructive sleep apnea (adult) (pediatric) Obesity, Class III, BMI >= 40 Morbid obesity documented in this encounter [facility] note* Diagnosis URI, acute- Primary Acute upper respiratory infections of unspecified site documented in this encounter [facility] for referral (narrative)* Diagnostic Procedure Only (Routine) - Closed Specialty Diagnoses / Procedures Referred By Dennis newby Referred To Contact [facility] Diagnoses Nausea Dyspepsia Procedures NM GASTRIC EMPTYING SOLID GASTRIC EMPTYING STUDY Hemalatha Anthony PA-C [address] [place] [address] Molecular & Functional Imaging [address] [id number] Referral ID Status Reason Start Date Expiration Date V isits Requested Visits Authorized [id number] Closed Auto-Generate d Referral 01/09/2023 02/08/2024 1 1 [facility] for referral (narrative)* Outpatient Procedure (Routine) - Pending Review Specialty Diagnoses / Procedures Referred By Dennis newby Referred To Contact [facility] Diagnoses Gastroesophageal reflux disease, unspecified whether esophagitis present Procedures EGD DIAGNOSTIC ESOPHAGOGASTRODUODENOSC OPY TRANSORAL DIAGNOSTIC Monse Chapin APRN.[employer] [address] [place] [address] [facility] [place] [address] [place] [address] Referral ID Status Reason Start Date Expiration Date Visits Requested Visits Authorized [id number] Pending Review Auto-Generat ed Referral 09/21/2023 09/20/2024 1 1 [facility] for referral (narrative)* Outpatient Procedure (Routine) - Closed Specialty Diagnoses / Procedures Referred By Dennis newby Referred To [facility] Diagnoses Gastroesophageal reflux disease, unspecified whether esophagitis present Procedures EGD DIAGNOSTIC ESOPHAGOGASTRODUODENOSC OPY TRANSORAL DIAGNOSTIC Monse Chapin APRN.CNP [address] [place] [address] [address] [id number] Referral ID Status Reason Start Date Expiration Date V isits Requested Visits Authorized [id number] Closed Auto-Generate d Referral 09/21/2023 09/24/2023 1 1 [facility] for referral (narrative)* Outpatient Procedure (Routine) - New Request Specialty Diagnoses / Procedures Referred By Dennis newby Referred To [facility] Diagnoses Gastroesophageal reflux disease, unspecified whether esophagitis present Procedures PH INSERT OFF MEDS GASTROESOPHAG REFLX TEST W/CATH PH ELTRD PLCMT Ariel Guo MD [address] [place] [address] [address] Referral ID Status Reason Start Date Expiration Date Visits Requested Visits Authorized [id number] New Request Auto-Generat ed Referral 12/31/2023 12/30/2024 1 1 * Outpatient Procedure (Routine) - New Request Specialty Diagnoses / Procedures Referred By Dennis newby Referred To [facility] Diagnoses Gastroesophageal reflux disease, unspecified whether esophagitis present Procedures MANOMETRY ESOPHAGEAL ESOPHAGEAL MOTILITY STUDY W/INTERP&RPT Ariel Guo MD [address] [place] [address] [address] Referral ID Status Reason Start Date Expiration Date Visits Requested Visits Authorized [id number] New Request Auto-Generat ed Referral 12/31/2023 12/30/2024 1 1 [facility] Procedure (Routine) - New Request Specialty Diagnoses / Procedures Referred By Contac t Referred To Contact [facility] Diagnoses Gastroesophageal reflux disease, unspecified whether esophagitis present Procedures MANOMETRY ESOPHAGEAL FUNCTION W/IMPEDANCE GASTROESOPHAG REFLX TEST W/INTRLUML IMPED Sidney Stahl MD [address] [address] [facility] [address] [address] Referral ID Status Reason Start Date Expiration Date Visits Requested Visits Authorized [id number] New Request Auto-Generat ed Referral 01/29/2025 1 1 [facility] Reason for Referral Specialty Diagnoses / Procedures Referred By Contac t Referred To Contact [facility] Diagnoses Sciatica of left side Procedures CONSULT TO PHYSICAL THERAPY PHYSICAL THERAPY EVALUATION HIGH COMPLEX 45 MINS Hemalatha Anthony PA-C [address] [place] [address] [facility] [address] [address] Referral ID Status Reason Start Date Expiration Date Visits Requested Visits Authorized [id number] Authorized Auto-Generat ed Referral 04/16/2023 04/15/2024 1 1 Summary Purpose Family History No Family History Records FoundNo Family History Records FoundNo Family History Records Found Advance Directives No Advanced Directives Records FoundNo Advanced Directives Records FoundNo Advanced Directives Records Found Additional Source Comments Source Comments (unrecognize d section and content) In the event this informatio n is protected by the Federal Confidentiality of Alcohol and Drug Abuse Patient Records regulations: The Federal rules restrict any use of the information to criminally investigate or prosecute any alcohol or drug abuse patient.[facility] event this information is protected by the Federal Confidentiality of Alcohol and Drug Abuse Patient Records regulations: The Federal rules restrict any use of the information to criminally investigate or prosecute any alcohol or drug abuse patient.[facility] the event this information is protected by the Federal Confidentiality of Alcohol and Drug Abuse Patient Records regulations: The Federal rules restrict any use of the information to criminally investigate or prosecute any alcohol or drug abuse patient.[facility] the event this information is protected by the Federal Confidentiality of Alcohol and Drug Abuse Patient Records regulations: The Federal rules restrict any use of the information to criminally investigate or prosecute any alcohol or drug abuse patient.[facility] the event this information is protected by the Federal Confidentiality of Alcohol and Drug Abuse Patient Records regulations: The Federal rules restrict any use of the information to criminally investigate or prosecute any alcohol or drug abuse patient.[facility] the event this information is protected by the Federal Confidentiality of Alcohol and Drug Abuse Patient Records regulations: The Federal rules restrict any use of the information to criminally investigate or prosecute any alcohol or drug abuse patient.[facility] the event this information is protected by the Federal Confidentiality of Alcohol and Drug Abuse Patient Records regulations: The Federal rules restrict any use of the information to criminally investigate or prosecute any alcohol or drug abuse patient.[facility] the event this information is protected by the Federal Confidentiality of Alcohol and Drug Abuse Patient Records regulations: The Federal rules restrict any use of the information to criminally investigate or prosecute any alcohol or drug abuse patient.[facility] the event this information is protected by the Federal Confidentiality of Alcohol and Drug Abuse Patient Records regulations: The Federal rules restrict any use of the information to criminally investigate or prosecute any alcohol or drug abuse patient.[facility] the event this information is protected by the Federal Confidentiality of Alcohol and Drug Abuse Patient Records regulations: The Federal rules restrict any use of the information to criminally investigate or prosecute any alcohol or drug abuse patient.[facility] the event this information is protected by the Federal Confidentiality of Alcohol and Drug Abuse Patient Records regulations: The Federal rules restrict any use of the information to criminally investigate or prosecute any alcohol or drug abuse patient.[facility] the event this information is protected by the Federal Confidentiality of Alcohol and Drug Abuse Patient Records regulations: The Federal rules restrict any use of the information to criminally investigate or prosecute any alcohol or drug abuse patient.[facility] the event this information is protected by the Federal Confidentiality of Alcohol and Drug Abuse Patient Records regulations: The Federal rules restrict any use of the information to criminally investigate or prosecute any alcohol or drug abuse patient.[facility] the event this information is protected by the Federal Confidentiality of Alcohol and Drug Abuse Patient Records regulations: The Federal rules restrict any use of the information to criminally investigate or prosecute any alcohol or drug abuse patient.[facility] the event this information is protected by the Federal Confidentiality of Alcohol and Drug Abuse Patient Records regulations: The Federal rules restrict any use of the information to criminally investigate or prosecute any alcohol or drug abuse patient.[facility] the event this information is protected by the Federal Confidentiality of Alcohol and Drug Abuse Patient Records regulations: The Federal rules restrict any use of the information to criminally investigate or prosecute any alcohol or drug abuse patient.[facility] the event this information is protected by the Federal Confidentiality of Alcohol and Drug Abuse Patient Records regulations: The Federal rules restrict any use of the information to criminally investigate or prosecute any alcohol or drug abuse patient.[facility] Hospital[facility] the event this information is protected by the Federal Confidentiality of Alcohol and Drug Abuse Patient Records regulations: The Federal rules restrict any use of the information to criminally investigate or prosecute any alcohol or drug abuse patient.[facility] the event this information is protected by the Federal Confidentiality of Alcohol and Drug Abuse Patient Records regulations: The Federal rules restrict any use of the information to criminally investigate or prosecute any alcohol or drug abuse patient.[facility] Hospital[facility] the event this information is protected by the Federal Confidentiality of Alcohol and Drug Abuse Patient Records regulations: The Federal rules restrict any use of the information to criminally investigate or prosecute any alcohol or drug abuse patient.[facility] the event this information is protected by the Federal Confidentiality of Alcohol and Drug Abuse Patient Records regulations: The Federal rules restrict any use of the information to criminally investigate or prosecute any alcohol or drug abuse patient.[facility] the event this information is protected by the Federal Confidentiality of Alcohol and Drug Abuse Patient Records regulations: The Federal rules restrict any use of the information to criminally investigate or prosecute any alcohol or drug abuse patient.[facility] the event this information is protected by the Federal Confidentiality of Alcohol and Drug Abuse Patient Records regulations: The Federal rules restrict any use of the information to criminally investigate or prosecute any alcohol or drug abuse patient.[facility] the event this information is protected by the Federal Confidentiality of Alcohol and Drug Abuse Patient Records regulations: The Federal rules restrict any use of the information to criminally investigate or prosecute any alcohol or drug abuse patient.[facility] the event this information is protected by the Federal Confidentiality of Alcohol and Drug Abuse Patient Records regulations: The Federal rules restrict any use of the information to criminally investigate or prosecute any alcohol or drug abuse patient.[facility] Reason for Visit (unrecogniz ed section and content) Reason Comments Consult Reason Comments New Patient Reason Comments Results Reason Comments metoprolol PA Reason Comments Radiology NM Specialty Diagnoses / Procedures Referred By Contac t Referred To Contact MOLECULAR & FUNCTIONAL IMAGING Diagnoses Nausea Dyspepsia Procedures NM GASTRIC EMPTYING SOLID GASTRIC EMPTYING STUDY Hemalatha Anthony PA-C [address] [place] [address] Molecular & Functional Imaging [address] [place] [address] Referral ID Status Reason Start Date Expiration Date V isits Requested Visits Authorized [id number] Closed Auto-Generate d Referral 01/09/2023 02/08/2024 1 1 Reason Comments Follow Up Reason Comments New Patient EGD consult Specialty Diagnoses / Procedures Referred By Contac t Referred To Contact Diagnoses Consult for EGD Procedures Consult for [place]GD [place] [address] Referral ID Status Reason Start Date Expiration Date Visits Requested Visits Authorized [id number] Authorized Patient Cleared - Qualified 100% FAS 09/21/2023 12/20/2023 99 99 Specialty Diagnoses / Procedures Referred By Contac t Referred To Contact Diagnoses Consult for EGD Procedures Consult for EGD Self [facility] [address] [place] [address] Referral ID Status Reason Start Date Expiration Date V isits Requested Visits Authorized [id number] Closed Patient Cleared - Qualified 100% FAS 09/21/2023 12/20/2023 99 99 Reason Comments Patient Update Reason Comments Refill Request Reason Comments Follow Up EGD Reason Comments New Patient HBC ( [place] ) Specialty Diagnoses / Procedures Referred By Dennis newby Referred To Contact Diagnoses Gastroesophageal reflux disease, unspecified whether esophagitis present Gastroesophageal reflux disease, unspecified whether esophagitis present [K21.9] Gastroesophageal reflux disease, unspecified whether esophagitis present [K21.9] Procedures ESOPHAGEAL MOTILITY STUDY W/INTERP&RPT EGD WITH BIOPSY ESOPHAGEAL ACID REFLUX TEST W/MUCOSAL ATTACHED TELEMETRY PH ELECTRODE PLACEMENT RECORDING, ANALYSIS, & INTERPRETATION [] ESOPHAGEAL MANOMETRY [facility] [address] [facility] [place] [address] Referral ID Status Reason Start Date Expiration Date Visits Re quested Visits Authorized [id number] 1 1 Reason Comments Patient Question Reason Comments Sore Throat ST, [place], nausea, iris estion, bodyaches and diarrhea x 1 day Care Teams (unrecognized sec tion and content) Sawyer Helper Relationship Specialty Start Date End Date Bernadette Tirado DO [address] [facility] [address] [place] [address] PCP - General Family Medicine 12/07/22 Sawyer Helper Relationship Specialty Start Date End Date Bernadette Tirado DO [address] [facility] [address] [place] [address] PCP - General Family Medicine 12/07/22 Sawyer Helper Relationship Specialty Start Date End Date Bernadette Tirado DO [address] [facility] [address] [place] [address] PCP - General Family Medicine 12/07/22 Sawyer Helper Relationship Specialty Start Date End Date Bernadette Tirado DO [address] [facility] [address] [place] [address] PCP - General Family Medicine 12/07/22 Sawyer Helper Relationship Specialty Start Date End Date Bernadette Tirado DO [address] [place] [address] PCP - General Family Medicine 12/07/22 Sawyer Helper Relationship Specialty Start Date End Date Bernadette Tirado DO [address] [place] [address] PCP - General Family Medicine 12/07/22 Sawyer Helper Relationship Specialty Start Date End Date Bernadette Tirado, DO [address] [place] [address] PCP - General Family Medicine 12/07/22 Sawyer Helper Relationship Specialty Start Date End Date Bernadette Tirado DO [address] [place] [address] PCP - General Family Medicine 12/07/22 Sawyer Helper Relationship Specialty Start Date End Date Bernadette Tirado DO [address] [place] [address] PCP - General Family Medicine 12/07/22 Sawyer Helper Relationship Specialty Start Date End Date Neela Lino MD [address] [place] [address] PCP - General Family Medicine 09/21/23 Sawyer Helper Relationship Specialty Start Date End Date Neela Lino MD [address] [place] [address] PCP - General Family Medicine 09/21/23 Sawyer Helper Relationship Specialty Start Date End Date Neela Lino MD [address] [place] [address] PCP - General Family Medicine 09/21/23 Sawyer Helper Relationship Specialty Start Date End Date Neela Lino MD [address] [place] [address] PCP - General Family Medicine 09/21/23 Sawyer Helper Relationship Specialty Start Date End Date Neela Lino MD [address] [place] [address] PCP - General Family Medicine 09/21/23 Sawyer Helper Relationship Specialty Start Date End Date Neela Lino MD [address] [place] [address] PCP - General Family Medicine 09/21/23 Sawyer Helper Relationship Specialty Start Date End Date Neela Lino MD [address] [place] [address] PCP - General Family Medicine 09/21/23 Sawyer Helper Relationship Specialty Start Date End Date Neela Lino MD [address] [place] [address] PCP - General Family Medicine 09/21/23 Sawyer Helper Relationship Specialty Start Date End Date Neela Lino MD [address] [place] [address] PCP - General Family Medicine 09/21/23 Sawyer Helper Relationship Specialty Start Date End Date Neela Lino MD [address] [place] [address] PCP - General Family Medicine 09/21/23 INFORMATION SOURCE (unrecogn ized section and content) DATE CREATED AUTHOR 11/25/2023 [facility] DATE CREATED AUTHOR AUTHOR'S ORGANIZ ATION 01/08/2024 [facility] DATE CREATED AUTHOR AUTHOR'S ORGANIZ ATION 02/09/2024 [facility] Scheduled Active and Recently Administ ered Medications (unrecognized section and content) Medication Order 02/04/2024 02/05/2024 02/06/2024 metoclopramide HCl 5 mg injection (REGLAN) (COMPLETED) 5 mg, INTRAVENOUS, ONCE, 1 dose, On Sun02/06/24 at 1200, Pharmacist may modify dose per [facility] dose optimization consult agreement: Yes 1201 (Given - Provid er: July Lyons RN) ondansetron (PF) 4 mg injection (ZOFRAN) (COMPLETED) 4 mg, INTRAVENOUS, ONCE, 1 dose, On Sun02/06/24 at 1200, Give IV push over 2 minutes 1201 (Given - Provid er: July Lyons RN) Continuous Medication Order 02/04/2024 02/05/2024 02/06/2024 lactated ringers iv infusion 125 mL/hr, INTRAVENOUS, CONTINUOUS, Starting on Sun02/06/24 at 1430, Until Pamela 02/07/24 at 0302, Recovery or Phase I (only) 1430 (Due) PRN Medication Order 02/04/2024 02/05/2024 02/06/2024 fentaNYL 50 mcg/mL 50 mcg injection (SUBLIMAZE) 50 mcg, INTRAVENOUS, EVERY 5 MINUTES NEEDED, 2 doses, Starting on Sun02/06/24 at 1404, Until Pamela 02/07/24 at 0302, FIRST LINE THERAPY for mild, moderate, or severe pain, Every 5 minutes. Use if patient unable to tolerate oral therapy. Hold for respiratory rate less than 12 Max total dose: 100 mcg, Recovery or Phase I (only) HYDROmorphone (PF) 0.5 mg injection (DILAUDID) 0.5 mg, INTRAVENOUS, EVERY 10 MINUTES NEEDED, 4 doses, Starting on Sun02/06/24 at 1404, Until Pamela 02/07/24 at 0302, SECOND LINE THERAPY for mild, moderate, or severe pain, Every 10 minutes. Use if patient unable to tolerate oral therapy. Hold for respiratory rate less than 12 Max total dose: 2 mg Caution: IV hydromorphone is approximately 8 times MORE POTENT than IV morphine. For example, hydromorphone 1mg IV = morphine 8mg IV, Recovery or Phase I (only) labetalol 5 mg injection syringe (NORMODYNE) 5 mg, INTRAVENOUS, EVERY 10 MINUTES NEEDED, 4 doses, Starting on Sun02/06/24 at 1404, Until Pamela 02/07/24 at 0302, Give for blood pressure of:, Contact anesthesia provider if given. For systolic BP greater than 200 or diastolic BP greater than 100. Hold for HR less than 60., Protect From Light, Recovery or Phase I (only) meperidine (PF) 12.5 mg injection (DEMEROL) 12.5 mg, INTRAVENOUS, EVERY 10 MINUTES NEEDED, 2 doses, Starting on Sun02/06/24 at 1404, Until Pamela 02/07/24 at 0302, for shivering, May Repeat 12.5 mg in 10 minutes X1 for Continued Shivering, Recovery or Phase I (only) oxyCODONE IR 5 mg tab(s) (ROXICODONE) 5 mg, ORAL, NEEDED, 1 dose, Starting on Sun02/06/24 at 1404, Until Pamela 02/07/24 at 0302, Moderate Pain (4-6) - Enteral, Recovery or Phase I (only) FOR RECORDS PERTAINING TO PATIENTS WHO ARE [...] BE BASED ON THE PRIMARY CLINICAL RECORDS. [email or web address] provides no warranty or guarantee of the accuracy or completeness of information in this document.
[2024-02-13 06:36] LABS: Anion Gap 6 (5-15); BUN 7 mg/dL (7-18); BUN/Creat Ratio 9.1 RATIO (10-20); Calcium,Total 8.9 mg/dL (8.5-10.1); Chloride 107 mmol/L (98-107); Creatinine, Serum 0.77 mg/dL (0.55-1.02); EST Glomerular Filtration Rate 100 mL/min (>60); Est Glom Filt Rate - Afr Amer 120 mL/min (>60); Estimated Creatinine Clearance 128.63 ml/min; Glucose 111 mg/dL (74-106); Magnesium 1.8 mg/dL (1.6-2.6); Potassium 3.6 mmol/L (3.5-5.1); Sodium Level 137 mmol/L (136-145)
[2024-02-13 07:40] VITALS: BP 141/91; PULSE 99; RESP 15; TEMP 37.2; O2SAT 97
[2024-02-13 07:51] VITALS: BP 141/91; PULSE 99; RESP 15; TEMP 37.2; O2SAT 97
== END 2024-02-13 07:53 | disposition home or self-care (01) ==
PROVIDERS: Emergency Provider Emergency Medicine; PCP Family Medicine; Visit Provider Emergency Medicine
DX: B34.9 Viral infection, unspecified (principal); G90.A Postural orthostatic tachycardia syndrome [POTS]
CPT/HCPCS: 71046; 80048; 83735; 85025; 96361; 96374; 96375; 99284; J7030; A4216

== ENCOUNTER → 2024-02-19 | Outpatient (CLI) | payer OTHER, MEDICAID, SELFPAY ==
[2024-02-19 15:28] LABS: Absolute Lymphocyte Count 4.01 X10^3/uL (0.83-4.51); Absolute Neutrophil Count 12.2 X10^3/uL (2.0-7.7); Basophil% 0.6 % (0-1); Eosinophil# 0.17 X10^3/uL; Hematocrit 41.7 % (37-47); Hemoglobin 12.9 g/dL (12.0-15.0); Lymphocyte # 4.01 X10^3/ul (0.83-4.51); Lymphocyte % 22.5 % (19-41); Mean Corp Hgb Conc 30.9 g/dL (32-36); Mean Corpuscular Hgb 26.9 pg (27.0-32.0); Mean Corpuscular Volume 86.9 fL (81-99); Monocyte# 1.12 X10^3/uL; Monocyte% 6.3 % (0-10); NRBC Flagged by Analyzer 0 % (0-5); Neutrophil # 12.15 X10^3/uL (2.7-7.7); Neutrophil % 68.3 % (47-70); Platelet Count 464 K/mm3 (150-450); RBC Distribution Width SD 44.2 fl (35.1-43.9); White Blood Count 17.8 K/mm3 (4.4-11.0)
[2024-02-19 15:54] LABS: ALB/GLOB Ratio 0.9 RATIO (0.9-2.4); AST(SGOT) 13 U/L (15-37); Alanine Aminotransfer ALT/SGPT 33 U/L (13-56); Albumin, Serum 3.4 g/dL (3.2-5.0); Alkaline Phosphatase 90 U/L (45-117); Anion Gap 4 (5-15); BUN 19 mg/dL (7-18); BUN/Creat Ratio 19.5 RATIO (10-20); Calcium,Total 8.7 mg/dL (8.5-10.1); Chloride 104 mmol/L (98-107); Creatinine, Serum 0.98 mg/dL (0.55-1.02); EST Glomerular Filtration Rate 76 mL/min (>60); Est Glom Filt Rate - Afr Amer 91 mL/min (>60); Globulin 3.9 g/dL (2.2-4.2); Glucose 81 mg/dL (74-106); Potassium 3.6 mmol/L (3.5-5.1); Protein, Total 7.3 g/dL (6.4-8.2); Sodium Level 138 mmol/L (136-145)
[2024-02-19 16:12] LABS: Internal QC Validated? YES +Cl - CLEAR BKGD; Monotest Negative (Negative); Record Kit Lot#, Mono 13241033
--- OUTSIDE RECORDS SUMMARY | 2024-02-19 17:51 | XMS RPT_ITS | CCD ---
Author Organization [facility] Inform ion Partnership [facility] Care Team Providers Care Hospital Staff Pharmacist Name Role Phone Unavailable Primary Care Provider UnavailBernadette Sparks DO Primary Care Provider [phone] Bernadette Tirado DO Primary Care Provider [phone] Bernadette Tirado DO Primary Care Provider [phone] Neela Lino MD Primary Care Provider HEMALATHA ANTHONY Referring Unavailable BERNADETTE TIRADO Primary Care Unavailable JIMBO JENNINGS Attending Unavailable MONSE CHAPIN Referring Unavailable NEELA LINO Primary Care Unavailable NEELA LINO Primary Care Unavailable SIDNEY BOONE Attending Unavail able NEELA LINO Primary Care Unavailable SIDNEY BOONE Admitting Unavail able SIDNEY BOONE Attending Unavail able SIDNEY BOONE Referring Unavail able HEMALATHA ANTHONY Referring Unavailable BERNADETTE TIRADO Primary Care UnavailHEMALATHA Deutsch Attending Unavailable BERNADETTE TIRADO Primary Care UnavailZITA Viera Attending Unavailable BERNADETTE TIRADO Primary Care UnavailHEMALATHA Deutsch Referring Unavailable JOSE DAVIDBERNADETTE KAUR Primary Care UnavailHEMALATHA Deutsch Attending Unavailable BERNADETTE TIRADO Primary Care UnavailARIEL Terrell Attending Unavailable NEELA LINO Primary Care Unavailable NEELA LINO Primary Care Unavailable ARIEL GUO Attending Unavailable NEELA LINO Primary Care Unavailable NEELA LINO Primary Care Unavailable ARIEL GUO Attending Unavailable BERNADETTE TIRADO Primary Care Unavailshabnam e Medications Current Medications Medication Drug Class(es) Dates Sig (Normalized) Sig (Original) atomoxetine 40 mg oral capsule (5 sources) Norepinephrine Reuptake Inhibitor Start: 01-17-2024 take 1 capsule by mouth once daily atomoxetine (STRATTERA) 40 mg capsule Take 40 mg by mouth once daily. 01/17/2024 Active cetirizine hydrochloride 10 mg oral tablet (20 sources) Histamine-1 Receptor Antagonist Start: 05-09-2023 End: 02-14-2024 take 1 tablet by mouth once daily cetirizine (ZYRTEC) 10 mg tablet Take 1 tablet by mouth once daily. 30 tablet 2 02/14/2024 Active Comment on above: Take 1 tablet by nba once daily. fluticasone furoate 0.0275 mg/actuat metered dose nasal spray (17 sources) Corticosteroid Start: 08-31-2023 take 1 spray(s) nasal route twice daily Fluticasone Furoate (FLONASE SENSIMIST) 27.5 mcg/actuation nasal spray Use [address] in each nostril two times a day. 9.1 mL 4 08/31/2023 Active ketotifen 0.25 mg/ml ophthalmic solution (17 sources) Histamine-1 Receptor Inhibitor Start: 08-31-2023 take 1 drop(s) into the eye(s) every twelve hours as needed ketotifen fumarate (ZADITOR) 0.025 % (0.035 %) ophthalmic solution Use 1 Drop in both eyes two times a day as needed. 10 mL 4 08/31/2023 Active L-norgest/e.estradi ol-e.estrad (JAIMIESS ORAL) (17 sources) Start: 04-16-2021 L-norgest/e.estra diol-e.estrad (JAIMIESS ORAL) 04/16/2021 Active Start: 04-16-2021 L-norgest/e.es tradiol-e.estrad (JAIMIESS ORAL) mecobalamin 1 mg chewable tablet (17 sources) Start: 02-14-2023 mecobalamin, vitamin B12, (B12 [...] Discontinued Start: 02-21-2023 take 1 capsule by [facility] once daily metoprolol succinate 25 mg CSpX Take 1 capsule by mouth once daily. 30 capsule 2 02/21/2023 Active Comment on above: Take 1 capsule by [facility] once daily. Take 1 tablet by [facility] two times a day. Take 1 tablet by [facility] once daily. omeprazole 20 mg delayed release oral capsule (20 sources) Proton Pump Inhibitor Start: 08-30-2023 omeprazole (PRILOSEC) 20 mg capsule Takes 40mg before breakfast and 20mg before dinner 08/30/2023 Active Start: 08-17-2023 omeprazole (CT ILOSEC) 40 mg capsule 08/17/2023 Active Completed/Discontinued [...] at 1200, Pharmacist may modify dose per [facility] dose optimization consult agreement: Yes [...] Comment on above: Take 1 tablet by [facility] once daily. Problems Active Problems Problem Classification Problem Date Documented Date Episodic/Chronic Allergic reactions (1 source) Adverse reaction to food; Translations: [Other adverse food reactions, not elsewhere classified, subsequent encounter] 08-31-2023 Episodic Cardiac dysrhythmias (6 sources) Postural orthostatic tachycardia syndrome ; Translations: [POTS (postural orthostatic tachycardia syndrome)] Onset: 05-17-2022 09-05-2023 Chronic Esophageal disorders (20 sources) Gastroesophageal reflux disease without esophagitis; Translations: [Gastro-esophageal reflux disease without esophagitis] Onset: 09-12-2022 10-04-2022 Chronic Inflammation; infection of eye (except that caused by tuberculosis or sexually transmitteddisease) (1 source) Chronic allergic conjunctivitis; Translations: [Other chronic allergic conjunctivitis] 08-31-2023 Chronic Other circulatory disease (2 sources) Orthostatic hypotension; Translations: [Orthostatic hypotension] Episodic Other connective tissue disease (1 source) Swelling of hand; Translations: [Other specified soft tissue disorders] 09-05-2023 Episodic Other injuries and conditions due to external causes (1 source) Injury of head; Translations: [Unspecified injury of head, initial encounter] Episodic Other nutritional; endocrine; and metabolic disorders (1 source) Severe obesity; Translations: [Class 3 severe obesity due to excess calories without serious comorbidity with body mass index (BMI) of 40.0 to 44.9 in adult ([facility])] 01-30-2024 Chronic Other nutritional; endocrine; and metabolic disorders (5 sources) Body mass index 40+ - severely obese; Translations: [Morbid (severe) obesity due to excess calories] Onset: 02-06-2024 02-06-2024 Chronic Other nutritional; endocrine; and metabolic disorders (1 source) Morbid (severe) obesity due to excess calories; Translations: [Class 3 severe obesity due to excess calories without serious comorbidity with body mass index (BMI) of 40.0 to 44.9 in adult ([facility])] Onset: 01-30-2024 Chronic Other nutritional; endocrine; and metabolic disorders (1 source) Body mass index (BMI) 40.0-44.9, adult; Translations: [Class 3 severe obesity due to excess calories without serious comorbidity with body mass index (BMI) of 40.0 to 44.9 in adult ([facility])] Onset: 01-30-2024 Chronic Other upper respiratory disease (1 source) Chronic rhinitis; Translations: [Chronic rhinitis] 08-31-2023 Chronic Other upper respiratory infections (1 source) Acute upper respiratory infection; Translations: [Acute upper respiratory infection, unspecified] 02-12-2024 Episodic Residual codes; unclassified (6 sources) Obstructive sleep apnea syndrome; Translations: [Obstructive [...] 40.0 to 44.9 in adult ([facility]); Translations: [Class 3 severe obesity due to excess calories without serious comorbidity with body mass index (BMI) of 40.0 to 44.9 in adult ([facility])] Onset: 01-30-2024 Past or Other Problems Problem Classification Problem Date Documented Da te Episodic/Chronic Abdominal pain (2 sources) Indigestion; Translations: [Epigastric pain] Onset: 05-18-2023 05-18-2023 Episodic Conditions associated with dizziness or vertigo (20 sources) Dizziness; Translations: [Dizziness and giddiness] Onset: 07-03-2022 10-04-2022 Episodic Headache; including migraine (20 sources) Headache; Translations: [Headache] Onset: 10-04-2022 10-04-2022 Episodic Nausea and vomiting (5 sources) Nausea; Translations: [Nausea] Onset: 05-18-2023 05-18-2023 Episodic Other connective tissue disease (1 source) Other specified soft tissue disorders; Translations: [Bilateral hand swelling] Onset: 09-05-2023 Episodic Residual codes; unclassified (1 source) Altered mental status, unspecified; Translations: [Altered mental status, unspecified altered mental status type] Onset: 06-26-2023 Episodic Results Test Name Value Interpretation Reference Range Facility [facility] 02-12-2024 [facility] Office Visit (UCTR ) ACE LEONARDO ([id number]) 2 F Date Time Provider Department 02/12/24 10:45 AM DEANA TOMPKINS [facility] During your visit today, we recorded the following information about you: Temperature Pulse Respiration Blood pressure 100.4 degrees 112/minute 18/minute 122/82 Weight 101.6 kg Deana Tompkins APRN.CNP 02/12/2024 11:24 AM Signed This note was created using NoteWriter. Subjective Ace Leonardo is a 23 year old female. 23 year old female with no significant PMH presents for illness. Acute onset yesterday +headache +sore throat +nausea +congestion +body aches +diarrhea Denies cough Denies CP Utilized x 2 OTC cold medicine Tea with honey Cough drops Denies tobacco usage. The history is provided by the patient. No biblical languages professor was used. Sore Throat This is a [...] SURGICAL HISTORY Procedure Laterality Date EGD W/O [facility] SPEC VARICIES INJ 11/16/2023 ALLERGIES Patient has no known allergies. MEDICATIONS metoprolol succinate ER (TOPROL XL) 25 mg 24 hr tablet take 1 tablet by mouth every day (Patient taking differently: Take 50 mg by mouth once daily.) L-norgest/e.estradiol-e .estrad (JAIMIESS ORAL) mecobalamin, vitamin B12, (B12 ACTIVE) 1,000 mcg chew omeprazole (PRILOSEC) 40 mg capsule omeprazole (PRILOSEC) 20 mg capsule Takes 40mg before breakfast and 20mg before dinner cetirizine (ZYRTEC) 10 mg tablet Take 1 tablet by mouth once daily. atomoxetine (STRATTERA) 40 mg capsule Take 40 mg by mouth once daily. Fluticasone Furoate (FLONASE SENSIMIST) 27.5 mcg/actuation nasal spray Use [address] in each nostril two times a day. [...] BP 122/82 Pulse 112 Temp (!) 38 ?C (100.4 ?F) (Tympanic) Resp 18 Wt 101.6 kg (223 lb 15.8 oz) LMP (LMP Unknown) SpO2 98% BMI 40.97 kg/m? Physical Exam Vitals and nursing note reviewed. [...] Abdomen is flat. There is no distension. Pal (more content not included)... Normal [facility] COVID AND INFLUENZA A/B AND RSV PCR, ROUTINEon 02-12-2024 SARS-CoV-2 (COVID-19) RNA JANINE+probe Ql (Unsp spec) SARS-COV-2 (AGENT OF COVID-19) RNA: Not detected INFLUENZA A RNA: Not detected INFLUENZA B RNA: Not detected RESPIRATORY SYNCYTIAL VIRUS (RSV) RNA: Not detected Normal [facility] Comment on above: Performed By: #### C VFLRS ####[facility] [id number] [place] [address] [place] STREP A MOLECULAR (POC)on Procedural Control Valid [facility] Strep A (POCT) Negative Negative [facility] CNPNon 02-07-2024 CNPN Telephone (AGGENS3) ACE LEONARDO ([id number]) 2 F Date Time Provider Department 02/07/24 SIDNEY BOONE3 During your visit today, we recorded the following information about you: Remigio Villar RN 02/07/2024 4:16 PM Signed Patient sent a Nimia message about the [employer] fulfillment mail clerk so I called her for more information. Ace said that the fulfillment mail clerk has disconnected about 5 times since last night, even though it is sitting on my lap. It does reconnect . Patient states the red light flashes and it beeps when it is disconnected but it will reconnect itself. Currently the fulfillment mail clerk is connected. Patient is using the lanyard or keeping the fulfillment mail clerk in her lap. Patient states she can feel the [employer] capsule in her throat. I asked the patient to try to ride it out until tomorrow afternoon, when the test should be completed, as I believe the fulfillment mail clerk is still working. I did tell her that if the fulfillment mail clerk starts beeping continuously then put it in another room or her car so it does not keep her awake overnight. Patient agreed with the plan. I gave the patient my contact information. Remigio Villar RN Allergies As of Date: 02/07/2024 (No Known Allergies) Date Reviewed: 02/06/2024 Reviewed by: Albert, Pma, RN - Fully Assessed Reason for Visit: Patient Question [3704] Prescriptions as of 02/07/2024 - atomoxetine (STRATTERA) 40 mg capsule Take 40 mg by mouth once daily. - metoprolol succinate ER (TOPROL XL) 25 mg 24 hr tablet take 1 tablet by mouth every day - L-norgest/e.estradiol-e .estrad (JAIMIESS ORAL) - mecobalamin, vitamin B12, (B12 ACTIVE) 1,000 mcg chew - omeprazole (PRILOSEC) 40 mg capsule - omeprazole (PRILOSEC) 20 mg capsule Takes 40mg before breakfast and 20mg before dinner - Fluticasone Furoate (FLONASE SENSIMIST) 27.5 mcg/actuation nasal spray Use [address] in each nostril two times a day. [...] Encounter Status:Closed by REMIGIO VILLAR on 02/07/24 [facility] ANES POSTPROC EVALon 024 ANES POSTPROC EVAL HNO ID: [id number] Author: NEELA DODGE MD Service: Anesthesiology Author Type: Physician Type: Anesthesia Postprocedure Evaluation Filed: 02/06/2024 14:04 Note Text: POST ANESTHESIA EVALUATION NOTE : 2000 Procedure Summary Date: 02/06/24 Room / Location: [facility] 22 / [facility] Anesthesia Start: 1332 Anesthesia Stop: 1353 [...] February 06, 2024 TIME: 2:04 PM CSN: [id number] [facility] ANES PRE-OPon 02-06-2024 ANES PRE-OP HNO ID: [id number] Author: NEELA DODGE MD Service: Anesthesiology Author [...] and consent discussed: yes. Patient / Responsible Constitution Party agrees to proceed: yes Patient / [...] Take 50 mg by mouth once daily.) L-norgest/e.estradiol-e .estrad (JAIMIESS ORAL) mecobalamin, vitamin B12, (B12 ACTIVE) 1,000 mcg chew omeprazole (PRILOSEC) 20 mg capsule Takes 40mg before breakfast and 20mg before dinner cetirizine (ZYRTEC) 10 mg tablet Take 1 tablet by mouth once daily. omeprazole (PRILOSEC) 40 mg capsule Fluticasone Furoate (FLONASE SENSIMIST) 27.5 mcg/actuation nasal spray Use [address] in each nostril two times a day. [...] February 06, 2024 TIME: 11:47 AM CSN: [id number] Normal [facility] EGD Study observation Narrat kimberly 02-06-2024 [facility] Gastrointestinal Endoscopy Patient Name: Ace Leonardo Procedure Date: 02/06/2024 1:24 PM Date of : 2000 Admit Type: Outpatient Room: [place] [address] Gender: Female Note Status: Finalized Attending MD: Sidney Boone MD, [id number] Procedure: Upper GI endoscopy Indications: Suspected gastro-esophageal [...] antiplatelet agents. Procedure Code(s): --- Professional --- 73732, Esophagogastroduodenosc opy, flexible, transoral; with biopsy, single or multiple --- Technical --- 48096, Esophagogastroduodenosc opy, flexible, transoral; with biopsy, single or multiple 39853, TC, Esophagus, gastroesophageal reflux test; with mucosal attached telemetry pH electrode placement, recording, analysis and interpretation CPT copyright 2020 [employer]. All rights reserved. The codes documented in this report are (more content not included)... [facility] Radiology Study observation (narrative) [facility] HCG ( test) Ql (U)O rdered By: Mary Maier on 02-06-2024 Interpretation and review of laboratory results Normal [facility] HCG Preg Ur Qlon 02-06-2024 HCG ( test) Ql (U) Negative Normal Negative [facility] Comment on above: Order Comment: Speci men Type: URINE SPECIMEN Ordering Facility: [facility] Address: [address] [place] [address] Result Comment: This test is intended to aid in the early detection of . Very dilute urine samples, as indicated by a low specific gravity, may not contain livestock sales representative levels of hCG. This test [...] . Performed By: #### 2 106-3 #### [facility] CLIA [id number] [address] [place] [address] [place] HCG, QUALITATIVE, URINE PREG NANCYOrdered By: Mary Maier on 02-06-2024 HCG ( test) Ql (U) Negative Negative [facility] Comment on above: This test is intende d to aid in the early detection of . Very dilute urine samples, as indicated by a low specific gravity, may not contain livestock sales representative levels of hCG. This test [...] . HISTORY PHYSICALon HISTORY PHYSICAL HNO ID: [id number] Author: KARLY MAGAÑA APRN.[facility] Service: Anesthesiology Author Type: Nurse Practitioner Type: [...] SURGICAL HISTORY Procedure Laterality Date EGD W/O [facility] SPEC VARICIES INJ 11/16/2023 FAMILY HISTORY Problem [...] mouth once daily. 02/05/2024 at 1400 Yes L-norgest/e.estradiol-e .estrad (JAIMIESS ORAL) 02/05/2024 at 1400 Yes mecobalamin, [...] SENSIMIST) 27.5 mcg/actuation nasal spray Use [address] in each nostril two times a day. [...] No r (more content not included)... Normal [facility] NURSING PROGon 02-06-2024 NURSING PROG HNO ID: [id number] Author: BRANDIE HAMM RN Service: Nursing Author [...] This patient tolerated this procedure well. Normal [facility] SURGICAL PATHOLOGYon 02-05-2 024 CASE REPORT Normal [facility] Comment on above: Order Comment: Speci men Type: TISSUE SPECIMEN Ordering Facility: [facility] Address: [address] [place] [address] Result Comment: Surg [facility] Pathology Report Case: [id number] Authorizing Provider: Sidney Boone, Collected: 02/06/2024 01:42 PM Ordering Location: [facility] Received: 02/07/2024 10:53 AM Pathologist: Sarah Child MD Specimens: A) - Stomach, Antrum, Biopsy B) - Esophagogastric Junction, Biopsy Performed By: #### S #### [facility] CLIA [id number] [address] [place] [address] CLINICAL HISTORY Normal [place] Comment on above: Order Comment: Speci men Type: TISSUE SPECIMEN Ordering Facility: [facility] Address: [address] [place] [address] Result Comment: Pre- op diagnosis: Gastroesophageal reflux disease, unspecified whether esophagitis present [K21.9] Performed By: #### S #### [facility] CLIA [id number] [address] [place] [address] FINAL DIAGNOSIS Normal [facility] Comment on above: Order Comment: Speci men Type: TISSUE SPECIMEN Ordering Facility: [facility] Address: [address] [place] [address] Result Comment: Alice long antrum, biopsy: -- Antral-type gastric mucosa with no significant histopathologic abnormalities. -- No morphologic evidence of H. pylori organisms identified on H&E sections. B. Esophagogastric junction, biopsy: -- Squamous mucosa with no significant histopathologic abnormalities. -- No glandular type mucosa present for evaluation. Performed By: #### S #### [facility] CLIA [id number] [address] [place] [address] FINAL PERFORMING LAB Normal [facility] Comment on above: Order Comment: Speci men Type: TISSUE SPECIMEN Ordering Facility: [facility] Address: [address] [place] [address] Result Comment: Diag nostic interpretation performed at [facility], [address] [place] [address] CLIA# [id number] Aircraft Instrument Mechanic: Tony Donahue M.D. Performed By: #### S #### [facility] CLIA [id number] [address] [place] [address] GROSS DESCRIPTION Normal [facility] Comment on above: Order Comment: Speci men Type: TISSUE SPECIMEN Ordering Facility: [facility] Address: [address] [place] [address] Result Comment: A. S tomach, Antrum, Biopsy Received in formalin labeled stomach [...] entirely in B1. Gross examination performed at [facility], [address] [place] [address] CLIA#[id number] OLS February 07, 2024 12:14 PM Performed By: #### S #### [facility] CLIA [id number] [address] [place] [address] Upper GI endoscopyon 10-23-2 024 Upper GI endoscopy Addendum Number: 1 Addendum Date: 02/18/2024 10:29:20 AM Reason for Exam is GERD MD Sidney Byrd MD 02/18/2024 10:30:09 AM This report has been signed electronically by Sidney Boone MD [facility] Gastrointestinal Endoscopy Patient Name: Ace Leonardo Procedure Date: 02/06/2024 1:24 PM Date of : 2000 Admit Type: Outpatient Room: [place] [address] Gender: Female Note Status: Addendum Attending MD: Sidney Boone MD, [id number] Procedure: Upper GI endoscopy Indications: Suspected gastro-esophageal [...] antiplatelet agents. Procedure Code(s): --- Professional --- 82772, Esophagogastroduodenosc opy, flexible, transoral; with biopsy, single or multiple --- Technical --- 86768, Esophagogastroduodenosc opy, flexible, transoral; with biopsy, single or multiple 63247, TC, Esophagus, gastroesophageal reflux test; with mucosal attached telemetry pH electrode placement, recording, analysis and interpretation CPT copyright 2020 [employer]. All rights reserved. The codes documented in this report are preliminary and upon industrial energy engineer review may be revised to meet current compliance requirements. Attending Participation: I personally performed the entire procedure. Scope In: 1:38:44 PM Scope Out: 1:49:11 PM MD Sidney Byrd MD 02/06/2024 2:02:20 PM This report has been signed electronically by Sidney Boone MD Number of Addenda: 1 Note Initiated On: 02/06/2024 1:24 PM Normal [facility] CNOVon 01-30-2024 CNOV Office Visit (JAQUELIN 3) ACE LEONARDO ([id number]) 2 F Date Time Provider Department 01/30/24 9:45 AM SIDNEY BOONEENS3 During your visit today, we recorded the [...] SURGICAL HISTORY Procedure Laterality Date EGD W/O [facility] SPEC VARICIES INJ 11/16/2023 Social History Tobacco [...] Take 50 mg by mouth once daily.) L-norgest/e.estradiol-e .estrad (JAIMIESS ORAL) mecobalamin, vitamin B12, (B12 ACTIVE) 1,000 mcg chew omeprazole (PRILOSEC) 20 mg capsule Takes 40mg before breakfast and 20mg before dinner Fluticasone Furoate (FLONASE SENSIMIST) 27.5 mcg/actuation nasal spray Use [address] in each nostril two times a day. [...] (bmi) of 40.0 to 44.9 in adult ([facility]) Plan: ASSESSMENT/PLAN: 1. Gastroesophageal reflux disease, unspecified [...] 40.0 to 44.9 in adult ([facility]) - ICD9: 278.01, V85.41, ICD10: E66.813, E66.01, Z68.41 Stable Medical Decision Making: Problems: Moderate: New problem with uncertain prognosis Data: Unique test(s) ordered: 3+ Risk: Low: Low risk fr (more content not included)... Normal [facility] CNOVon 12-31-2023 CNOV Office Visit (GENSWS ) ACE LEONARDO ([id number]) 2 F Date Time Provider Department 12/31/23 2:30 PM ARIEL GUOArturo During your visit today, we recorded the [...] this visit. Abdomen is soft and nontender Assessment:Gastroesopha geal reflux disease, unspecified whether esophagitis present (primary encounter diagnosis) Plan: I am going to obtain an esophageal manometry study and a 48-hour pH probe I will see her back once these are done. Allergies As of Date: 12/31/2023 (No Known Allergies) Date Reviewed: 12/31/2023 Reviewed by: Cassandra Nicholson RN - Fully Assessed Reason for Visit: Follow Up [171] Cmt: EGD Primary Visit Diagnosis:Gastroesophag eal reflux disease, unspecified whether esophagitis present [K21.9] Order(s):MANOMETRY ESOPHAGEAL [[id number]] Order #: [id number] FUTURE PH INSERT OFF MEDS [[id number]] Order #: [id number] FUTURE Prescriptions as of 01/03/2024 - metoprolol succinate ER (TOPROL XL) 25 mg 24 hr tablet take 1 tablet by mouth every day - L-norgest/e.estradiol-e .estrad (JAIMIESS ORAL) - mecobalamin, vitamin B12, (B12 ACTIVE) 1,000 mcg chew - omeprazole (PRILOSEC) 40 mg capsule - omeprazole (PRILOSEC) 20 mg capsule Takes 40mg before breakfast and 20mg before dinner - Fluticasone Furoate (FLONASE SENSIMIST) 27.5 mcg/actuation nasal spray Use [address] in each nostril two times a day. [...] for Encounter Date Provider Department Center 12/31/2023 [id number] GUO Debbie [facility] Encounter Status:Closed by ARIEL GUO on 01/03/24 [facility] 12-31-2023 [facility] Telephone ([employer]) ACE LEONARDO ([id number]) 2 F Date Time Provider Department 12/31/23 ARIEL GUO During your visit today, we [...] office after appointments are done Keren Martinez Cracker And Cookie Machine Operator Keren Martinez 01/07/2024 8:00 AM Signed [...] 1 tablet by mouth every day - L-norgest/e.estradiol-e .estrad (JAIMIESS ORAL) - mecobalamin, vitamin B12, (B12 ACTIVE) 1,000 mcg chew - omeprazole (PRILOSEC) 40 mg capsule - omeprazole (PRILOSEC) 20 mg capsule Takes 40mg before breakfast and 20mg before dinner - Fluticasone Furoate (FLONASE SENSIMIST) 27.5 mcg/actuation nasal spray Use [address] in each nostril two times a day. [...] Encounter Status:Closed by KER[facility] RALPHACE ([id number]) 2 F Date Time Provider Department 11/19/23 ARIEL GUO During your visit today, we recorded the following information about you: Ivis Richter LPN 11/19/2023 10:38 AM Signed Patient calling and reports she has had constant aching pain in her lower abdomen since EGD. Occasionally sharp depending on activity and had signifcant nausea over the weekend. She was evaluated at [facility] ER and given medication for nausea and discharged to home. She is wondering if there is anything she should be doing for pain? Denies emesis or cough/hemoptysis. Reports the pain interferes with sleep. She would like a work excuse for today if possible. Patient can be reached at [phone] RAUL Parker Billie, RN 11/19/2023 5:02 PM [...] Update [1234] Prescriptions as of 11/30/2023 - L-norgest/e.estradiol-e .estrad (JAIMIESS ORAL) - mecobalamin, vitamin B12, (B12 ACTIVE) 1,000 mcg chew - omeprazole (PRILOSEC) 40 mg capsule - omeprazole (PRILOSEC) 20 mg capsule Takes 40mg before breakfast and 20mg before dinner - Fluticasone Furoate (FLONASE SENSIMIST) 27.5 mcg/actuation nasal spray Use [address] in each nostril two times a day. [...] Encounter Status:Closed by IVIS RICHTER on 11/30/23 Normal [facility] CNOVon 11-18-2023 CNOV Office Visit (UCWSTR ) ACE LEONARDO ([id number]) 2 F Date Time Provider Department 11/18/23 10:15 AM JEROME ALLEN [facility] During your visit today, we recorded the [...] mid [facility]. Recommended patient return to [facility] emergency room. Patient states she will be seen at [facility]. Verbalized understanding agrees with plan of care. Jerome Allen APRN.JET WIPER Allergies As of Date: 11/18/2023 (No Known Allergies) Date Reviewed: 11/16/2023 Reviewed by: Anastasiia Zapata, RN - Fully Assessed Primary Visit Diagnosis:Procedure not carried out [Z53.9] Prescriptions as of 11/18/2023 - L-norgest/e.estradiol-e .estrad (JAIMIESS ORAL) - mecobalamin, vitamin B12, (B12 ACTIVE) 1,000 mcg chew - omeprazole (PRILOSEC) 40 mg capsule - omeprazole (PRILOSEC) 20 mg capsule Takes 40mg before breakfast and 20mg before dinner - Fluticasone Furoate (FLONASE SENSIMIST) 27.5 mcg/actuation nasal spray Use [address] in each nostril two times a day. [...] Encounter Status:Closed by JEROME ALLEN on 11/18/23 [facility] ANES POSTPROC EVALon 024 ANES POSTPROC EVAL HNO ID: [id number] Author: JIMBO JENNINGS MD Service: Anesthesiology Author Type: Anesthesiologist Type: Anesthesia Postprocedure Evaluation Filed: 11/16/2023 12:37 Note Text: POST ANESTHESIA EVALUATION NOTE : 2000 Procedure Summary Date: 11/16/23 Room / Location: [facility] Endoscopy Anesthesia Start: 1202 Anesthesia Stop: 1217 Procedure: EGD DIAGNOSTIC Diagnosis: Gastroesophageal reflux disease, unspecified whether esophagitis present (Heartburn) Scheduled Providers: Ariel Guo MD; Tony Zhou APRN.METAL FABRICATOR WELDER; Jimbo Jennings MD Responsible Provider: Jimbo Jennings [...] November 16, 2023 TIME: 12:37 PM CSN: [id number] Normal [facility] ANES PRE-OPon 11-16-2023 ANES PRE-OP HNO ID: [id number] Author: JIMBO JENNINGS MD Service: Anesthesiology Author Type: Anesthesiologist Type: Anesthesia Preprocedure Evaluation Filed: 11/16/2023 11:32 Note Text: ANESTHESIOLOGY DAY OF SURGERY NOTE : 2000 Procedure Information Date/Time: 11/16/23 1415 Scheduled providers: Ariel Guo MD; Tony Zhou APRN.METAL FABRICATOR WELDER; Jimbo Jennings MD Procedure: EGD DIAGNOSTIC Location: [facility] Endoscopy Estimated body mass index is 35.7 [...] adequate. Short neck: no. Thick neck: no Microretrognathia/Micro nagthia/Recessed Chin: No DENTAL Dental findings: teeth intact. [...] and consent discussed: yes. Patient / Responsible Constitution Party agrees to proceed: yes Patient / [...] Outpatient Medications as of 11/16/2023 Medication Sig L-norgest/e.estradiol-e .estrad (JAIMIESS ORAL) mecobalamin, vitamin B12, (B12 ACTIVE) 1,000 mcg chew omeprazole (PRILOSEC) 40 mg capsule omeprazole (PRILOSEC) 20 mg capsule Takes 40mg before breakfast and 20mg before dinner Fluticasone Furoate (FLONASE SENSIMIST) 27.5 mcg/actuation nasal spray Use [address] in each nostril two times a day. [...] November 16, 2023 TIME: 11:31 AM CSN: [id number] [facility] EGD Study observation Brock harris 11-16-2023 [facility] Gastrointestinal Endoscopy Patient Name: Ace Leonardo Procedure Date: 11/16/2023 11:54 AM Date of : 2000 Admit Type: Outpatient Age: 23 Room: [facility] Gender: Female Note Status: Finalized Attending MD: Ariel Guo MD, [id number] Procedure: Upper GI endoscopy Indications: Heartburn, Gastro-esophageal [...] be scheduled. Procedure Code(s): --- Professional --- 35638, Esophagogastroduodenosc opy, flexible, transoral; with biopsy, single or multiple Diagnosis Code(s): --- Professional --- R12, Heartburn K21.9, Gastro-esophageal reflux disease without esophagitis CPT copyright 2020 [employer]. All rights reserved. The codes documented in this report are preliminary and upon industrial energy engineer review may be revised to meet current compliance requirements. Attending Participation: I personally performed the entire procedure. Scope In: 12:10:16 PM Scope Out: 12:14:16 PM MD Ariel Tyler MD 11/16/2023 12:17:28 PM This report has been signed electronically by Da (more content not included)... [facility] Radiology Study observation (narrative) [facility] HISTORY PHYSICALon HISTORY PHYSICAL HNO ID: [id number] Author: ARIEL GUO MD Service: General Surgery [...] had a gastric emptying study done at [facility] on May that was normal. Patient denies any change in bowel habits, weight changes, blood in stools, black tarry stools or abdominal pain. Ace has not undergone prior endoscopy. CURRENT MEDICATIONS Current Outpatient Medications Medication Sig L-norgest/e.estradiol-e .estrad (JAIMIESS ORAL) mecobalamin, vitamin B12, (B12 ACTIVE) 1,000 mcg chew omeprazole (PRILOSEC) 40 mg capsule omeprazole (PRILOSEC) 20 mg capsule Takes 40mg before breakfast and 20mg before dinner Fluticasone Furoate (FLONASE SENSIMIST) 27.5 mcg/actuation nasal spray Use [address] in each nostril two times a day. [...] entered by the nurse and reviewed by al Nursing Notes: Ivis Richter LPN 09/21/2023 8:37 [...] denies a history (more content not included)... [facility] SURGICAL PATHOLOGYon 024 CASE REPORT [facility] Comment on above: Order Comment: Speci men Type: TISSUE SPECIMEN Ordering Facility: [facility] Address: [address] [place] [address] Result Comment: Surg ica Pathology Report Case: [id number] Authorizing Provider: Ariel Guo MD Collected: 11/16/2023 12:11 PM Ordering Location: [facility] Endoscopy Received: 11/16/2023 01:53 PM Pathologist: Gabe Pastrana MD Specimens: A) - Small Bowel, Duodenum, Biopsy B) - Stomach, Antrum, Biopsy C) - Esophagus, Distal, Biopsy D) - Esophagus, Mid, Biopsy Performed By: #### S #### [facility] CLIA [id number] [address] [place] [address] DIAGNOSIS COMMENT C, D. No increase in intraepithelial eosinophils identified. Normal [facility] Comment on above: Order Comment: Speci men Type: TISSUE SPECIMEN [facility]ing Facility: [facility] Address: [address] [place] [address] Performed By: #### S #### [facility] CLIA [id number] [address] [place] [address] FINAL DIAGNOSIS Normal [facility] Comment on above: Order Comment: Speci men Type: TISSUE SPECIMEN Ordering Facility: [facility] Address: [address] [place] [address] Result Comment: A. S mall bowel, duodenum, biopsy: - Duodenal mucosa within normal limits. B. Stomach, antrum, biopsy: - Antral mucosa within normal limits. - No morphologic evidence of Helicobacter. C. Esophagus, distal, biopsy: - Squamous mucosa with mild reactive changes. D. Esophagus, mid, biopsy: - Squamous mucosa within normal limits. PB/alida 11/22/2023 Performed By: #### S #### [facility] CLIA [id number] [address] [place] [address] FINAL PERFORMING LAB [facility] Comment on above: Order Comment: Speci men Type: TISSUE SPECIMEN [facility]ing Facility: [facility] Address: [address] [place] [address] Result Comment: Diag nostic interpretation performed at [facility], [address] [place] [address] CLIA# [id number] Aircraft Instrument Mechanic: Mario Glez M.D. Performed By: #### S #### [facility] [place] [id number] [address] [place] [address] [place] GROSS DESCRIPTION Normal [facility] Comment on above: Order Comment: Speci men Type: TISSUE SPECIMEN Ordering Facility: [facility] Address: [address] [place] [address] Result Comment: A. S mall Bowel, Duodenum, [...] 0.2 cm. Totally submitted in one cassette. [facility] November 16, 2023 8:07 PM Gross examination performed at [facility], [address] [place] [address] Performed By: #### S #### [facility] [place] [id number] [address] [place] [address] [place] Upper GI endoscopy 024 Upper GI endoscopy [facility] Gastrointestinal Endoscopy Patient Name: Ace Leonardo Procedure Date: 11/16/2023 11:54 AM Date of : 2000 Admit Type: Outpatient Age: 23 Room: [facility] A Gender: Female Note Status: Finalized Attending MD: Ariel Guo MD, [id number] Procedure: Upper GI endoscopy Indications: Heartburn, Gastro-esophageal [...] be scheduled. Procedure Code(s): --- Professional --- 63262, Esophagogastroduodenosc opy, flexible, transoral; with biopsy, single or multiple Diagnosis Code(s): --- Professional --- R12, Heartburn K21.9, Gastro-esophageal reflux disease without esophagitis CPT copyright 2020 [employer]. All rights reserved. The codes documented in this report are preliminary and upon industrial energy engineer review may be revised to meet current compliance requirements. Attending Participation: I personally performed the entire procedure. Scope In: 12:10:16 PM Scope Out: 12:14:16 PM MD Ariel Tyler MD 11/16/2023 12:17:28 PM This report has been signed electronically by Ariel Guo MD Number of Addenda: 0 Note Initiated On: 11/16/2023 11:54 AM Estimated Blood Loss: Estimated blood loss was minimal. Normal [facility] 09-21-2023 [facility] Office Visit (BRENNAS ) ACE LEONARDO ([id number]) 2 F Date Time Provider Department 09/21/23 8:00 AM ARIEL GUO During your visit today, we recorded the following information about you: Weight 99.8 kg Ivis RichterRAUL 09/21/2023 8:37 AM Signed REVIEW [...] N/A Last Colonoscopy: N/A RAUL Parker Kimberley, ALEX.[facility] 09/21/2023 8:55 AM Signed HISTORY AND PHYSICAL [...] had a gastric emptying study done at [facility] on May that was normal. Patient denies any change in bowel habits, weight changes, blood in stools, black tarry stools or abdominal pain. Ace has not undergone prior endoscopy. Current Outpatient Medications Medication Sig L-norgest/e.estradiol-e .estrad (JAIMIESS ORAL) mecobalamin, vitamin B12, (B12 ACTIVE) 1,000 mcg chew omeprazole (PRILOSEC) 40 mg capsule omeprazole (PRILOSEC) 20 mg capsule Takes 40mg before breakfast and 20mg before dinner Fluticasone Furoate (FLONASE SENSIMIST) 27.5 mcg/actuation nasal spray Use [address] in each nostril two times a day. [...] Seizures Mater (more content not included)... [facility] ([employer]) ACE LEONARDO ([id number]) 2 F Date Time Provider Department 09/13/23 ARIEL GUO During your visit today, we recorded the following information about you: Alicja Mas MA 09/13/2023 1:47 PM Signed Prashanth from Dr. Lino's office at [facility] calling and asking for update on appointment with Dr. Guo. I didn't see anything scheduled. Prashanth will fax referral again. Ella Ray LPN 09/13/2023 3:38 PM Signed No appointment or referral for this patient. Ella Ray LPN September 13, 2023 3:38 PM Ella Ray LPN 09/13/2023 3:43 PM Signed Referral received, given to pss housing assistant property manager to reach out to patient for an appointment. Ella Ray LPN September 13, 2023 3:43 PM Allergies As of Date: 09/13/2023 (No Known Allergies) Date Reviewed: 09/05/2023 Reviewed by: Hemalatha Anthony PA-C - Fully Assessed Prescriptions as of 09/13/2023 - L-norgest/e.estradiol-e .estrad (JAIMIESS ORAL) - mecobalamin, vitamin B12, (B12 ACTIVE) 1,000 mcg chew - omeprazole (PRILOSEC) 40 mg capsule - omeprazole (PRILOSEC) 20 mg capsule Takes 40mg before breakfast and 20mg before dinner - Fluticasone Furoate (FLONASE SENSIMIST) 27.5 mcg/actuation nasal spray Use [address] in each nostril two times a day. [...] Status:Closed by ELLA RAY on 09/13/23 Normal [facility] KARINA BY IFA WITH REFLEXon Nuclear Ab Ql (S) Negative Normal Negative [facility] Comment on above: Order Comment: Speci men Type: BLOOD SPECIMENOrdering Facility: [facility] Address: [address] [place] [address] Result Comment: Anti -nuclear antibody test is used as an aid in diagnosis of systemic autoimmune diseases. Where positive and clinically warranted, follow-up using disease-specific testing is recommended. Low positive titers are not uncommon with advanced age, certain chronic infections, and malignancies among others. Test methodology: Indirect fluorescence immunoassay (IFA) using HEp-2 cells. Performed By: #### A NAIFR ####[facility] [id number] [place] [address] [place] C-REACTIVE PROTEINon 024 CRP [Mass/Vol] 1.2 mg/dL High NINF - 0.9 mg/dL [facility] CNOVon 09-05-2023 CNOV Office Visit (NEMOWS ) ACE LEONARDO ([id number]) 2 F Date Time Provider Department 09/05/23 [...] to help any allergies. Did see an technical recruiter and did not test positive for any allergies. Was diagnosed with chronic rhinitis. Notes her depression has improved as well, has been following with primary care for this. Did not see her central station operator, did not have skin biopsy done as well. Notes good water intake and activity level. Is very active at work and works 5 days a week. Notes good salt intake, blood pressure was normal today. Patient does have new concern, notes that her finge (more content not included)... Normal [facility] CRP SerPl-mCncon 09-05-2023 CRP [Mass/Vol] 1.2 mg/dL High <0.9 [facility] Comment on above: Order Comment: Speci men Type: BLOOD SPECIMENOrdering Facility: [facility] Address: [address] [place] [address] Performed By: #### 1 988-5 ####[facility] [id number] [address] OF [place] CRP [Mass/Vol]on 09-05-2023 Interpretation and review of laboratory results Abnormal [facility] ESR Westergren method (Bld) [Velocity]on 09-05-2023 ESR (Bld) [Velocity] 5 mm/h [facility] Interpretation and review of laboratory results Normal [facility] ESR (Bld) [Velocity] 5 mm/h Normal 0-20 [facility] Comment on above: Order Comment: Speci men Type: BLOOD SPECIMENOrdering Facility: [facility] Address: [address] [place] [address] Performed By: #### 4 537-7 ####[facility] [id number] [place] [address] [place] ALLERGEN SKIN TEST-INHALANT [...] 0 mm F = 0 mm Beech, Vincentian 1:20 P: W = 0 mm F = 0 mm Birch Mix 1:20 P: W = 0 mm F = 0 mm Maple Mix 1:20 P: W = 0 mm F = 0 mm [place] ,Eastern 1:20 P: W = 0 mm F = 0 mm [place], [place]ag[place]ark 1:20 P: W = 0 mm F = 0 mm [place], Red 1:20 P: W = 0 mm F = 0 mm [place], Black 1:20 P: W = 0 mm F = 0 mm [place], Vincentian/Eastern 1:20 P: W = 0 mm F = 0 mm [place] Pollen, Black 1:20 P: W = 0 mm F = 0 mm [place], Black 1:20 P: W = 0 mm F = 0 mm [place] Grass 10,000 BAU/ml P : W = 0 mm F = 0 mm [place], /September 100,000 BAU/ml P: W = 0 mm F = 0 mm [place], Divide 100,000 BAU/ml P: W = 0 mm F = 0 mm [place] Grass 1:20 P: W = 0 mm F = 0 mm Orchard Grass 100,000 BAU/ml P: W = 0 mm F = 0 mm Perennial [place], 100,000 BAU/ml P: W = 0 mm F = 0 mm Earl 100,000 BAU/ml P: W = 0 mm F = 0 mm [place] 1:20 P: W = 0 mm F = 0 mm [place], sheep 1:20 P: W = 0 mm F = 0 mm Plantain, Northern Irish 1:20 P: W = 0 mm F [...] = 7 mm F = 12 mm [facility] CNOVon 08-31-2023 CNOV Office Visit (ALLMED ) ACE LEONARDO ([id number]) 2 F Date Time Provider Department 08/31/23 [...] Zita Tamayo MD 08/31/2023 9:52 AM Signed [facility] New Patient Visit [...] tobacco: Never Current Outpatient Medications Medication Sig L-norgest/e.estradiol-e .estrad (JAIMIESS ORAL) mecobalamin, vitamin B12, (B12 ACTIVE) [...] SENSIMIST) 27.5 mcg/actuation nasal spray; Use [address] in each nostril two times a day. - ketotifen fumarate (ZADITOR) 0.025 % (0.035 %) ophthalmic solution; Use 1 Drop in both eyes two times a day as needed. Return to clinic in 3 months, sooner if there's any concern. AVS provided to patient and included recap of today's appointment and medical plan. Zita Tamayo MD Allergy AND Clinical Immunology [facility] Zita Tamayo MD 08/31/2023 9:48 AM Addendum Flonase sensimist 1 spray in each (more content not included)... Normal [facility] NM GASTRIC EMPTYING SOLIDon 05-18-2023 NM GASTRIC EMPTYING SOLID * * *Final Report* * * DATE OF EXAM: May 18 2023 12:30PM PIETRO 0017 - NM GASTRIC EMPTYING SOLID / PROCEDURE [...] A SOLID MEAL. No evidence of gastroparesis. Spiral Weaver: KYE Transcribe Date/Time: May 18 2023 2:03P Dictated by : TJ ESCAMILLA MD This examination was interpreted and the report reviewed and electronically signed by: TJ ESCAMILLA MD on May 18 2023 2:04PM EST [id number] Normal [facility] CNOVon 05-09-2023 CNOV Office Visit (JAQUELIN ) ACE LEONARDO ([id number]) 2 F Date Time Provider Department 05/09/23 [...] headache, MRI of the brain obtained at [facility] is negative for signs of intracranial hypotension, [...] few months. (more content not included)... Normal [facility] 02-26-2023 [facility] LEONARD[facility] ([id number]) 2 F Date Time Provider Department 02/26/23 HEMALATHA ANTHONY [facility] During your visit today, we recorded the [...] 5:14 PM by Provider, ADA Dior: AMY RendonoprolPushpa Ruiz LPN, LPN 06/19/2023 11:38 AM Signed New rx was sent to pharmacy by provider. Pushpa Paul LPN Allergies As of Date: 02/26/2023 (No Known Allergies) Date Reviewed: 01/09/2023 Reviewed by: Hemalatha Anthony PA-C - Fully Assessed Reason for Visit: Medication Question [5528] Prescriptions as of 06/19/2023 - cetirizine (ZYRTEC) [...] Encounter Status:Closed by PUSHPA PAUL on 06/19/23 [facility] 02-22-2023 [facility] Telephone (JAQUELIN) ACE LEONARDO ([id number]) 2 F Date Time Provider Department 02/22/23 HEMALATHA ANTHONY During your visit today, we recorded the following information about you: Armando Anderson RN 02/22/2023 11:53 AM Signed Prior Authorization Documentation Prior authorization requested for the following medication: Medication: metoprolol Provider: [employer] Name: [email or web address] Phone number: [phone] Patient ID number: [id number] [facility] Name: [facility] Patient reports she needs prior auth for metoprolol Diane Hickey LPN 02/22/2023 12:54 PM Signed Faxed Prior Authorization to [facility] [phone] for Metoprolol 25 mg, 11 pages 02/22/2023. Placed documents in [facility] location. Patient notified MyChart. Diane Stanton LPN, LPN 02/23/2023 2:17 PM Signed Denial prior authorization scanned into chart. Patient needs to have a history of two preferred medications for thirty days IR (immediate release). Hemalatha Fermin LPN, PA-C 02/27/2023 1:59 PM Signed [...] by DIANE HICKEY LPN on 02/22/23 Normal [facility] Vital Signs Date Time Vital Sign Value Performing Clinician Aurora hendricks 02-12-2024 10:54-0400 Body mass index (BMI) [Ratio] 40.97 kg/m2 Deana Tompkins NITRIC ACID CONCENTRATOR OPERATOR.JET WIPER Work Phone: [facility] 02-12-2024 10:54-0400 Body temperature 100.4 [degF] Deana Tompkins NITRIC ACID CONCENTRATOR OPERATOR.JET WIPER Work Phone: [facility] 02-12-2024 10:54-0400 Body weight 101.6 kg Deana Tompkins NITRIC ACID CONCENTRATOR OPERATOR.JET WIPER Work Phone: [facility] 02-12-2024 10:54-0400 Diastolic blood pressure 82 mm[Hg] Deana Tompkins NITRIC ACID CONCENTRATOR OPERATOR.JET WIPER Work Phone: [facility] 02-12-2024 10:54-0400 Heart rate 112 /min Deana Tompkins NITRIC ACID CONCENTRATOR OPERATOR.JET WIPER Work Phone: [facility] 02-12-2024 10:54-0400 Respiratory rate 18 /min Deana Tompkins NITRIC ACID CONCENTRATOR OPERATOR.JET WIPER Work Phone: [facility] 02-12-2024 10:54-0400 SaO2% (BldA) [Mass fraction] 98 % Deana Tompkins NITRIC ACID CONCENTRATOR OPERATOR.JET WIPER Work Phone: [facility] 02-12-2024 10:54-0400 Systolic blood pressure 122 mm[Hg] Deana Tompkins NITRIC ACID CONCENTRATOR OPERATOR.JET WIPER Work Phone: [facility] 02-06-2024 14:08-0400 Diastolic blood pressure 80 mm[Hg] Sidney Boone MD Work Phone: [facility] 02-06-2024 14:08-0400 Heart rate 90 /min Sidney Boone MD Work Phone: [facility] 02-06-2024 14:08-0400 Respiratory rate 18 /min Sidney Boone MD Work Phone: [facility] 02-06-2024 14:08-0400 SaO2% (BldA) [Mass fraction] 100 % Sidney Boone MD Work Phone: [facility] 02-06-2024 14:08-0400 Systolic blood pressure 122 mm[Hg] Sidney Boone MD Work Phone: [facility] 02-06-2024 13:52-0400 Body temperature 97.2 [degF] Sidney Boone MD Work Phone: [facility] 01-30-2024 09:36-0400 Body height 157.5 cm Sidney Boone MD Work Phone: [facility] 01-30-2024 09:36-0400 Body mass index (BMI) [Ratio] 41.34 kg/m2 Sidney Boone MD Work Phone: [facility] 01-30-2024 09:36-0400 Body weight 102.51 kg Sidney Boone MD Work Phone: [facility] 01-30-2024 09:36-0400 Diastolic blood pressure 77 mm[Hg] Sidney Boone MD Work Phone: [facility] 01-30-2024 09:36-0400 Heart rate 72 /min Sidney Boone MD Work Phone: [facility] 01-30-2024 09:36-0400 Respiratory rate 18 /min Sidney Boone MD Work Phone: [facility] 01-30-2024 09:36-0400 Systolic blood pressure 131 mm[Hg] Sidney Boone MD Work Phone: [facility] 11-16-2023 13:00-0400 Diastolic blood pressure 80 mm[Hg] Ariel Guo MD Work Phone: [facility] 11-16-2023 13:00-0400 Heart rate 86 /min Ariel Guo MD Work Phone: [facility] 11-16-2023 13:00-0400 SaO2% (BldA) [Mass fraction] 100 % Ariel Guo MD Work Phone: [facility] 11-16-2023 13:00-0400 Systolic blood pressure 140 mm[Hg] Ariel Guo MD Work Phone: [facility] 11-16-2023 12:45-0400 Respiratory rate 18 /min Ariel Guo MD Work Phone: [facility] 11-16-2023 12:19-0400 Body temperature 98.4 [degF] Ariel Guo MD Work Phone: [facility] 09-21-2023 08:10-0400 Body mass index (BMI) [Ratio] 35.7 kg/m2 Ariel Guo MD Work Phone: [facility] 09-21-2023 08:10-0400 Body weight 99.79 kg Ariel Guo MD Work Phone: [facility] 09-05-2023 10:28-0400 Body mass index (BMI) [Ratio] 36.02 kg/m2 Hemalatha Gallegoer PA-C Work Phone: [facility] 09-05-2023 10:28-0400 Body weight 100.7 kg Hemalatha Gallegoer PA-C Work Phone: [facility] [facility] 09-05-2023 10:28-0400 Diastolic blood pressure 80 mm[Hg] Hemalatha Gallegoer PA-C Work Phone: [facility] 09-05-2023 10:28-0400 Heart rate 69 /min Hemalatha Gallegoer PA-C Work Phone: [facility] 09-05-2023 10:28-0400 Respiratory rate 18 /min Hemalatha Gallegoer PA-C Work Phone: [facility] 09-05-2023 10:28-0400 SaO2% (BldA) [Mass fraction] 100 % Hemalatha Anthony PA-C Work Phone: [facility] 09-05-2023 10:28-0400 Systolic blood pressure 121 mm[Hg] Hemalatha Anthony PA-C Work Phone: [facility] 08-31-2023 08:26-0400 Body mass index (BMI) [Ratio] 35.77 kg/m2 Zita Tamayo MD Work Phone: [facility] 08-31-2023 08:26-0400 Body weight 100 kg Zita Tamayo MD Work Phone: [facility] 08-31-2023 08:26-0400 Diastolic blood pressure 83 mm[Hg] Zita Tamayo MD Work Phone: [facility] 08-31-2023 08:26-0400 Heart rate 83 /min Zita Tamayo MD Work Phone: [facility] 08-31-2023 08:26-0400 Respiratory rate 18 /min Zita Tamayo MD Work Phone: [facility] 08-31-2023 08:26-0400 SaO2% (BldA) [Mass fraction] 99 % Zita Tamayo MD Work Phone: [facility] 08-31-2023 08:26-0400 Systolic blood pressure 128 mm[Hg] Zita Tamayo MD Work Phone: [facility] 10-04-2022 13:25-0400 Body weight 77.93 kg Hemalatha Anthony PA-C Work Phone: [facility] 10-04-2022 13:25-0400 Respiratory rate 18 /min Hemalatha Anthony PA-C Work Phone: [facility] 10-04-2022 13:25-0400 SaO2% (BldA) [Mass fraction] 99 % Hemalatha Anthony PA-C Work Phone: [facility] Encounters Encounter Date Encounter Type Care Provider Facility Start: 02-18-2024 End: 02-18-2024 ambulatory ARIEL GUO Facility:[facility] Start: 02-14-2024 End: 02-14-2024 Refill Hemalatha Anthony PA-C Work Phone: Neurology Comment on above: Refill Request Start: 02-12-2024 End: 02-12-2024 ambulatory NEELA LINO Facility:[facility] Start: 02-12-2024 End: 02-12-2024 Patient encounter procedure Deana Tompkins JET WIPER Work Phone: [facility] Comment on above: URI, acute (Primary Dx) Start: 02-07-2024 End: 02-07-2024 Telephone encounter Sidney Boone MD Work Phone: [facility] Comment on above: Patient Question Start: 02-06-2024 ambulatory NEELA LINO Facilit y:[facility] Start: 02-06-2024 End: 02-06-2024 Preprocedural examination done Sidney Boone MD Work Phone: [facility] Work Phone: Start: 02-06-2024 End: 02-06-2024 Subsequent hospital visit by physician Sidney Boone MD Work Phone: [facility] Comment on above: Gastroesophageal ref lux disease, unspecified whether esophagitis present [K21.9], Gastroesophageal reflux disease, unspecified whether esophagitis present [K21.9] Start: 01-30-2024 End: 01-30-2024 Patient encounter procedure Sidney Boone MD Work Phone: [facility] Comment on above: Gastroesophageal ref lux disease, unspecified whether esophagitis present (Primary Dx); Regurgitation of food; Class 3 severe obesity due to excess calories without serious comorbidity with body mass index (BMI) of 40.0 to 44.9 in adult (HCC) Start: 01-30-2024 End: 01-30-2024 ambulatory NEELA LINO Facility:[facility] Start: 01-08-2024 End: 01-08-2024 Orders Only Sidney Boone MD Work Phone: [facility] Comment on above: Gastroesophageal ref lux disease, unspecified whether esophagitis present (Primary Dx) Start: 12-31-2023 End: 12-31-2023 ambulatory ARIEL GUO Facility:[facility] Start: 12-31-2023 End: 12-31-2023 Patient encounter procedure [...] Start: 11-18-2023 End: 11-18-2023 ambulatory NEELA LINO Facility:[facility] Start: 11-18-2023 End: 11-18-2023 Patient encounter procedure Jerome Allen APRN.CNP Work Phone: [facility] Comment on above: Procedure not abisai d out (Primary Dx) Start: 11-16-2023 ambulatory JIMBO JENNINGS Facility: [facility] Start: 11-16-2023 End: 11-16-2023 Subsequent hospital visit by physician Ariel Guo MD Work Phone: [facility] Comment on above: Gastroesophageal ref lux disease, unspecified whether esophagitis present [K21.9] Start: 09-21-2023 End: 09-21-2023 ambulatory ARIEL GUO Facility:[facility] Start: 09-21-2023 End: 09-21-2023 Patient encounter procedure Ariel Guo MD Work Phone: General Surgery Comment on above: Gastroesophageal ref lux disease, unspecified whether esophagitis present (Primary Dx) Start: 09-13-2023 Telephone encounter Ariel vang MD Work Phone: Orthopaedics Start: 09-05-2023 End: 09-05-[address] [facility] Start: 09-05-2023 End: 09-05-2023 Patient encounter procedure Hemalatha Gallegomelodie CABALLERO Work Phone: Neurology Comment on above: Bilateral hand swell ing (Primary Dx); Sciatica of left side; Nausea; Obstructive sleep apnea; POTS (postural orthostatic tachycardia syndrome); Altered mental status, unspecified altered mental status type; Orthostatic hypotension; Other headache syndrome Start: 08-31-2023 End: 08-31-2023 ambulatory ZITA TAMAYO Facility:[facility] Start: 08-31-2023 End: 08-31-2023 Patient encounter procedure Zita Tamayo MD Work Phone: Allergy Comment on above: Adverse reaction to food, subsequent encounter (Primary Dx); Gastroesophageal reflux disease, unspecified whether esophagitis present; Chronic rhinitis; Other chronic allergic conjunctivitis of both eyes Start: 07-30-2023 ambulatory Hemalatha Elvia iyer PA-C Work Phone: Neurology Comment on above: [facility] Start: 06-26-2023 End: 06-26-2023 [facility] Start: 06-15-2023 ambulatory Hemalatha Elvia iyer PA-C Work Phone: Neurology Comment on above: Overnight, pulse ox test for sleep apnea Start: 05-18-2023 End: 05-18-2023 [facility] Start: 05-18-2023 End: 05-18-2023 Subsequent hospital visit by physician [facility] Work Phone: Nuclear Medicine Comment on above: Nausea [R11.0] Start: 05-09-2023 End: 05-09-2023 [facility] Start: 02-22-2023 Telephone encounter Hemalatha garcia PA-C Work Phone: Neurology Comment on above: metoprolol PA Start: 02-17-2023 ambulatory Hemalatha Gallegosantino iyer PA-C Work Phone: Neurology Comment on above: Propranolol Start: 12-22-2022 Telephone encounter Hemalatha garcia PA-C Work Phone: Neurology Comment on above: Results Start: 10-04-2022 End: 10-04-2022 Patient encounter procedure Hemalatha Anthony PA-C Work Phone: Neurology Comment on above: Orthostatic hypotens ion (Primary Dx) Start: 09-14-2022 Telephone encounter Neurology Provid er Neurology Comment on above: Consult Start: 08-03-2021 End: 08-03-2021 Patient encounter procedure Krysten Giraldo NITRIC ACID CONCENTRATOR OPERATOR.JET WIPER Work Phone: [facility] Comment on above: Injury of head, init ial encounter (Primary Dx) Procedures Date Procedure Procedure Detail Performing Clinician Start: 02-12-2024 STREP A MOLECULAR (POC) Deana Tompkins NITRIC ACID CONCENTRATOR OPERATOR.JET WIPER Work Phone: Start: 02-06-2024 Esophagoscp rig transoral hypopharynx crv esoph Sidney Boone MD Work Phone: Start: 02-06-2024 Urine test visual color cmprsn meths Karly Magaña NITRIC ACID CONCENTRATOR OPERATOR.JET WIPER Work Phone: Start: 11-16-2023 Esophagogastroduodenoscopy transoral diagnostic Monse Chapin NITRIC ACID CONCENTRATOR OPERATOR.JET WIPER Work Phone: Start: 08-31-2023 ALLERGEN SKIN TEST-INHALENT 40 Zita smith MD Work Phone: Start: 05-18-2023 Gastric emptying imaging study Hemalatha sol PA-C Work Phone: Plan of Treatment Date Care Activity Detail Author Start: 12-07-2024 Urine microalbumin profile DTaP,Tdap,Td Vaccine (6 - Td or Tdap) [facility] Start: 03-18-2024 End: 03-18-2024 Patient encounter procedure 03/18/2024 10:00 AM EST Office Visit Neurology [address] [facility] [place] [address] Hemalatha Anthony PA-C [address] [facility] [address] 6 month follow up Neurology Comment on above: 6 month follow up Start: 02-18-2024 End: 02-18-2024 Patient encounter procedure 02/18/2024 1:00 PM EST Office Visit General Surgery [address] [place], [place] [id number] Ariel Guo MD [address] [place], [place] [id number] esophageal manometry & a PH IONSERT OFF MEDS f/u 02/05 General Surgery Comment on above: esophageal manometry & a PH IONSERT OFF MEDS f/u 02/05 Start: 02-06-2024 End: 02-06-2024 Egd transoral biopsy single/multiple EGD WITH BIOPSY Gastroesophageal reflux disease, unspecified whether esophagitis present 02/06/2024 1:30 PM EDT [facility] Start: 02-06-2024 End: 02-06-2024 Gastroesophag reflx test w/telemtry ph eltrd ESOPHAGEAL ACID REFLUX TEST W/MUCOSAL ATTACHED TELEMETRY PH ELECTRODE PLACEMENT RECORDING, ANALYSIS, & INTERPRETATION [] Gastroesophageal reflux disease, unspecified whether esophagitis present 02/06/2024 1:30 PM EDT [facility] Start: 02-06-2024 End: 02-06-2024 Admission to same day surgery center [facility] Comment on above: ESOPHAGEAL MANOMETRY EGD WITH BIOPSY Start: 02-06-2024 End: 02-06-2024 Esophageal motility study w/interp&rpt ESOPHAGEAL MANOMETRY Gastroesophageal reflux disease, unspecified whether esophagitis present 02/06/2024 12:30 PM EDT [facility] Start: 02-06-2024 Subsequent hospital visit by physician [facility] Comment on above: Gastroesophageal reflux disease, unspeci fied whether esophagitis present [K21.9], Gastroesophageal reflux disease, unspecified whether esophagitis present [K21.9] Start: 01-30-2024 End: 01-30-2024 Patient encounter procedure 01/30/2024 9:45 AM EDT Office Visit [facility] [address] [facility] [address] [place] [address] Sidney Boone MD [address] [facility] [address] [place] [phone] HBC-referral from Dr. Guo for EGD/Smalls/mano--testing scheduled 02/06/24 [facility] Comment on above: HBC-referral from Dr. Guo for EGD/Br shilpa/mano--testing scheduled 02/06/24 Start: 12-16-2023 Covid-19 Vaccine ( season) Covid-19 Vaccine () [facility] Start: 12-16-2023 Covid-19 Vaccine () Covid-19 Vaccine () [facility] Start: 12-16-[address] [facility] Start: 12-03-2023 End: 12-03-2023 Patient encounter procedure 12/03/2023 9:30 AM EDT Office Visit Allergy [address] [address] Mario Ansari MD [address] [place] [address] 3 month follow up Allergy Comment on above: 3 month follow up Start: 11-16-2023 End: 11-16-2023 Patient encounter procedure 11/16/2023 3:45 PM EDT Appointment [facility] [address] [place] [address] Ariel Guo MD [address] [place] [address] egd [facility] Comment on above: egd Start: 09-19-2023 End: 09-19-2023 ambulatory 09/19/2023 10:45 AM EDT OT/PT/Speech Visit [facility] Physical Therapy [address] [place], [place] [phone] Primitivo Kelly, PT [address] [place], [place] [id number] Sciatica of left side [M54.32] [facility] Comment on above: Sciatica of left side [M54.32] Start: 09-05-2023 End: 12-05-2023 KARINA BY IFA WITH REFLEX [facility] Work Phone: Comment on above: Expected: 09/05/2023, Expires: Start: 09-05-2023 End: 09-05-2023 Patient encounter procedure 09/05/2023 10:30 AM EDT Office Visit Neurology [address] [facility] [place] [phone] Hemalatha Anthony PA-C [address] [place] [id number] 3 mo Follow up Neurology Comment on above: 3 mo Follow up Start: 04-16-2023 Behavioral Health Screening Behavioral Health Screening [facility] Start: 04-16-2023 Depression Assessment Depression Assessment [facility] Start: 12-15-2022 Covid-19 Vaccine ( season) Covid-19 Vaccine ( season) [facility] Start: 12-15-[address] [facility] Start: 2022 PAP TESTING PAP TESTING [facility] Start: 2022 Screening for malignant neoplasm of cervix [facility] Start: 04-16-2022 DEPRESSION ASSESSMENT DEPRESSION ASSESSMENT [facility] Start: 12-15-2021 Influenza vaccination INFLUENZA (Season Ended) [facility] Start: 02-21-2021 COVID-19 VACCINE (3 - Booster for Pfizer series) COVID-19 VACCINE (3 - Booster for Pfizer series) [facility] Start: 11-16-2020 COVID-19 VACCINE (3 - Booster for Pfizer series) COVID-19 VACCINE (3 - Booster for Pfizer series) [facility] Start: 11-16-2020 COVID-19 VACCINE (3 - Pfizer series) COVID-19 VACCINE (3 - Pfizer series) [facility] Start: 10-04-2019 Anxiety Screening Anxiety Screening [facility] Start: 10-04-2019 CHLAMYDIA SCREENING (18-24) CHLAMYDIA SCREENING (18-24) [facility] Start: 10-04-2019 Depression Screening Depression Screening [facility] Start: 10-04-2019 GC (GONORRHEA) SCREENING (18-24) GC (GONORRHEA) SCREENING (18-24) [facility] Start: 10-04-2019 HEPATITIS C SCREENING HEPATITIS C SCREENING [facility] Start: 10-04-2019 Hepatitis C screening Hepatitis C Screening [facility] Start: 10-04-2019 HIV SCREENING HIV SCREENING [facility] Start: 10-04-2019 HIV screening HIV Screening [facility] Start: 10-04-2019 Screening for Chlamydia trachomatis Chlamydia Screening (18) [facility] Start: 2017 Meningococcal B Vaccine: Consider Based On Risk (1 of 2 - Patient Seeks Protection) Meningococcal B Vaccine: Consider Based On Risk (1 of 2 - Patient Seeks Protection) [facility] Start: 2017 MENINGOCOCCAL B: Consider based on risk (1 of 2 - Patient Seeks Protection) MENINGOCOCCAL B: Consider based on risk (1 of 2 - Patient Seeks Protection) [facility] Start: 2016 HPV Vaccine (1 - 3-dose series) HPV Vaccine (1 - 3-dose series) [facility] Start: 10-04-2015 PEDS TO ADULT TRANSITION ANNUAL ASSESSMENT PEDS TO ADULT TRANSITION ANNUAL ASSESSMENT [facility] Start: 2013 Adult depression screening assessment DEPRESSION SCREENING [facility] Start: 2013 PEDS TO ADULT TRANSITION INITIAL DISCUSSION PEDS TO ADULT TRANSITION INITIAL DISCUSSION [facility] Start: 2012 HPV VACCINE (1 - 2-dose series) HPV VACCINE (1 - 2-dose series) [facility] Start: [address] [facility] Start: 10-04-2011 MENINGOCOCCAL B: Consider based on risk (1 of 2 - Risk Bexsero 2-dose series) MENINGOCOCCAL B: Consider based on risk (1 of 2 - Risk Bexsero 2-dose series) [facility] Start: 2010 HPV VACCINE (1 - 2-dose series) HPV VACCINE (1 - 2-dose series) [facility] Start: 10-04-2007 PNEUMOCOCCAL (1 - PCV) PNEUMOCOCCAL (1 - PCV) [facility] ic Cardiovascular funct ion eval w/tilt table w/mntr TILT TABLE EVALUATION Cardiology Routine Orthostatic hypotension Ordered: 10/04/2022 [facility] Work Phone: Comment on above: Ordered: 10/04/2022 COVID & INFLUENZA A/ B & RSV PCR, ROUTINE COVID & INFLUENZA A/B & RSV PCR, ROUTINE Microbiology Routine URI, acute 02/12/2024 11:47 AM EDT [facility] Work Phone: End: 09-20-2024 EGD DIAGNOSTIC EGD DIAGNOSTIC Endoscopy Routine Gastroesophageal reflux disease, unspecified whether esophagitis present 1 Occurrences starting 09/21/2023 until 09/20/2024 [facility] Work Phone: Comment on above: 1 Occurrences [...] disease, unspecified whether esophagitis present Ordered: 01/08/2024 [facility] Work Phone: Comment on above: Ordered: 01/08/2024 End: 12-30-2024 Manometry Study observation Narrative MANOMETRY ESOPHAGEAL Endoscopy Routine Gastroesophageal reflux disease, unspecified whether esophagitis present 1 Occurrences starting 12/31/2023 until 12/30/2024 [facility] Work Phone: Comment on above: 1 Occurrences starting 12/31/2023 until 12/30/2024 Manometry Study observation Narrative MANOMETRY ESOPHAGEAL FUNCTION W/IMPEDANCE Endoscopy Routine Gastroesophageal reflux disease, unspecified whether esophagitis present Ordered: 01/30/2024 [facility] Work Phone: Comment on above: Ordered: 01/30/2024 End: 12-30-2024 PH INSERT OFF MEDS PH INSERT OFF MEDS Endoscopy Routine Gastroesophageal reflux disease, unspecified whether esophagitis present 1 Occurrences starting 12/31/2023 until 12/30/2024 [facility] Comment on above: 1 Occurrences starting 12/31/2023 until 12/30/2024 SURGICAL PATHOLOGY [facility] Work Phone: Comment on above: Release Upon Ordering for 1 Occurrences starting 11/16/2023, 1 completed SURGICAL PATHOLOGY SURGICAL PATH OLOGY Lab Routine Gastroesophageal reflux disease, unspecified whether esophagitis present Release Upon Ordering for 1 Occurrences starting 02/06/2024 [facility] Work Phone: Comment on above: Release Upon Ordering for 1 Occurrences starting 02/06/2024 [facility] Immunizations Immunization Date Immunization Notes Care Provider Fa [facility] 01-19-2022 influenza virus vaccine, unspecified formulation Hemalatha Anthony PA-C Work Phone: [facility] 10-11-2007 measles, mumps and rubella virus vaccine Krysten Giraldo APRN.JET WIPER Work Phone: [facility] Work Phone: 10-11-2007 varicella virus vaccine Vanessa Giraldo APRN.JET WIPER Work Phone: [facility] Work Phone: 05-10-2006 DTaP-hepatitis B and poliovirus vaccine Krysten Giraldo APRN.JET WIPER Work Phone: [facility] Work Phone: 05-10-2006 pneumococcal conjuga te vaccine, 7 valent Krysten Giraldo APRN.JET WIPER Work Phone: [facility] Work Phone: 05-10-2006 varicella virus vaccine Vanessa Giraldo APRN.JET WIPER Work Phone: [facility] Work Phone: 03-27-2005 diphtheria, tetanus toxoids and acellular pertussis vaccine Krysten Giraldo APRN.JET WIPER Work Phone: [facility] Work Phone: 03-27-2005 haemophilus influenz ae type b vaccine, HbOC conjugate Krysten Giraldo APRN.JET WIPER Work Phone: [facility] Work Phone: 03-27-2005 measles, mumps and rubella virus vaccine Krysten James NITRIC ACID CONCENTRATOR OPERATOR.JET WIPER Work Phone: [facility] Work Phone: 03-27-2005 pneumococcal conjuga te vaccine, 7 valent Krysten Enzo NITRIC ACID CONCENTRATOR OPERATOR.JET WIPER Work Phone: [facility] Work Phone: 02-22-2002 haemophilus influenz ae type b vaccine, HbOC conjugate Krysten Enzo NITRIC ACID CONCENTRATOR OPERATOR.JET WIPER Work Phone: [facility] 02-07-2002 diphtheria, tetanus toxoids and acellular pertussis vaccine Krysten Enzo NITRIC ACID CONCENTRATOR OPERATOR.JET WIPER Work Phone: [facility] 02-07-2002 pneumococcal conjuga te vaccine, 7 valent Krysten Enzo NITRIC ACID CONCENTRATOR OPERATOR.JET WIPER Work Phone: [facility] 02-07-2002 poliovirus vaccine, inactivated Krysten Enzo NITRIC ACID CONCENTRATOR OPERATOR.JET WIPER Work Phone: [facility] 2001 diphtheria, tetanus toxoids and acellular pertussis vaccine Krysten Enzo NITRIC ACID CONCENTRATOR OPERATOR.JET WIPER Work Phone: [facility] 2001 haemophilus influenz ae type b vaccine, HbOC conjugate Krysten James NITRIC ACID CONCENTRATOR OPERATOR.JET WIPER Work Phone: [facility] 2001 hepatitis B vaccine, pediatric or pediatric/adolescent dosage Krysten Enzo NITRIC ACID CONCENTRATOR OPERATOR.JET WIPER Work Phone: [facility] 2001 poliovirus vaccine, inactivated Krysten Enzo NITRIC ACID CONCENTRATOR OPERATOR.JET WIPER Work Phone: [facility] 2001 hepatitis B vaccine, pediatric or pediatric/adolescent dosage Krysten Enzo NITRIC ACID CONCENTRATOR OPERATOR.JET WIPER Work Phone: [facility] Payers Date Payer Category Payer Unknown [facility] PRE TIA [employer] INS[employer]ED [id number] 2023-Present [phone] [address] [place] [address] O [id number] 2023 Unknown [id number] 2022 Medicaid [employer] [id number] 2022-Present [phone] [address] [place] [address] Medicaid [id number] 2022 Medicaid [id number] 2018 Private Health Insurance [facility] UMR CHOICE PLUS [id number] 2018-Present [phone] [address] [address] [place] [address] HMO [id number] 2018 Private Health Insurance [facility] UMR CHOICE PLUS [id number] 2018-Present [phone] [address] [address] [place] [address] HMO [id number] 2018 Unknown [id number] Social History Date Type Detail [facility] Work Phone: Start: 06-29-2009 End: 01-30-2024 Alcohol intake Not Asked [facility] Start: 2001 Sex Assigned At Not on file [facility] Start: 07-24-2021 End: 08-03-2021 Exposure to SARS-CoV-2 (event) Not sure [facility] Work Phone: Start: 10-04-2022 [facility] History of tobacco use Current smoker [facility] History of tobacco use Cigarette Smoker [facility] Start: 10-04-2022 End: 09-21-2023 Tobacco use and exposure Smokeless tobacco non-user [facility] Start: 10-04-2022 End: 09-05-2023 History of [address] function [facility] Start: 10-04-2022 End: 09-05-[address] [facility] National Score (1-10 0), lower number is lower risk 99 [facility] Start: 09-21-2023 Tobacco smoking stat us NHIS Never smoked tobacco [facility] Start: 02-06-2024 End: 02-12-2024 Alcoholic beverage intake Ex-drinker (finding) [facility] Clinical Notes 08-03-2021 to 02-14-2024 Telephone Encounter - Rose Decker OCCA - 02/14/2024 11:23 AM EDTTelephone Encounter - Rose Decker OCCA - 02/14/2024 11:23 AM EDDeana Silverio APRN.JET WIPER - 02/12/2024 11:06 AM EDT Note Date & Type Note Facility 02-14-2024 Telephone encounter Note Prescription Refill Information The [...] 03/18/2024 Requested Prescriptions Pending Prescriptions Disp Refills cetirizine (ZYRTEC) 10 mg tablet 30 tablet 2 Sig: Take 1 tablet by mouth once daily. RACIEL Su February 14, 2024 11:[address] [facility] 02-14-2024 Miscellaneous Notes Prescription Refill Information The patient [...] 03/18/2024 Requested Prescriptions Pending Prescriptions Disp Refills cetirizine (ZYRTEC) 10 mg tablet 30 tablet 2 Sig: Take 1 tablet by mouth once daily. RACIEL Su February 14, 2024 11:23 AM documented in this encounter [facility] 02-12-2024 Note Addended by: DEANA TOMPKINS on: 02/12/2024 11:32 AM Modules accepted: Orders [facility] 02-12-2024 Miscellaneous Notes Addended by: DEANA TOMPKINS on: 02/12/2024 11:32 AM Modules accepted: Orders documented in this encounter [facility] 02-12-2024 Note HNO ID: [id number] Author: DEANA TOMPKINS APRN.CNP Service: ? Author Type: Nurse Practitioner Type: Progress Notes Filed: 02/12/2024 11:24 Note Text: This note was created using [employer]. Subjective Ace Leonardo is a 23 year old female. 23 year old female with no significant PMH presents for illness. Acute onset yesterday +headache +sore throat +nausea +congestion +body aches +diarrhea Denies cough Denies CP Utilized x 2 OTC cold medicine Tea with honey Cough drops Denies tobacco usage. The history is provided by the patient. No biblical languages professor was used. Sore Throat This is a [...] SURGICAL HISTORY Procedure Laterality Date EGD W/O BRSH SPEC VARICIES INJ 11/16/2023 ALLERGIES Patient has [...] SENSIMIST) 27.5 mcg/actuation nasal spray Use [address] [place] in each nostril two times a day. [...] BP 122/82 Pulse 112 Temp (!) 38 ?C (100.4 ?F) (Tympanic) Resp 18 Wt 101.6 kg (223 lb 15.8 oz) LMP (LMP Unknown) SpO2 98% BMI 40.97 kg/m? Physical Exam Vitals and nursing note reviewed. [...] tenderness, deformity or signs of injury. Normal ran (more content not included)... [facility] 02-12-2024 History of Present illness Narrative This note was created using [employer]. Subjective Ace Leonardo is a 23 year old female. 23 year old female with no significant PMH presents for illness. Acute onset yesterday +headache +sore throat +nausea +congestion +body aches +diarrhea Denies cough Denies CP Utilized x 2 OTC cold medicine Tea with honey Cough drops Denies tobacco usage. The history is provided by the patient. No biblical languages professor was used. Sore Throat This is a [...] SURGICAL HISTORY Procedure Laterality Date EGD W/O [facility] SPEC VARICIES INJ 11/16/2023 ALLERGIES Patient has [...] SENSIMIST) 27.5 mcg/actuation nasal spray Use [address] in each nostril two times a day. [...] - STREP A MOLECULAR (POC) Deana Tompkins APRN.GIOVANNA documented in this encounter [facility] 02-07-2024 Telephone encounter Note Patient sent a Playfiret message about the [employer] fulfillment mail clerk so I called her for more information. Ace said that the fulfillment mail clerk has disconnected about 5 times since last night, even though it is sitting on my lap. It does reconnect . Patient states the red light flashes and it beeps when it is disconnected but it will reconnect itself. Currently the fulfillment mail clerk is connected. Patient is using the lanyard or keeping the fulfillment mail clerk in her lap. Patient states she can feel the Sm[employer] capsule in her throat. I asked the patient to try to ride it out until tomorrow afternoon, when the test should be completed, as I believe the fulfillment mail clerk is still working. I did tell her that if the fulfillment mail clerk starts beeping continuously then put it in another room or her car so it does not keep her awake overnight. Patient agreed with the plan. I gave the patient my contact information. Remigio Villar RN [facility] 02-07-2024 Miscellaneous Notes Patient sent a [employer] message about the [employer] fulfillment mail clerk so I called her for more information. Ace said that the fulfillment mail clerk has disconnected about 5 times since last night, even though it is sitting on my lap. It does reconnect . Patient states the red light flashes and it beeps when it is disconnected but it will reconnect itself. Currently the fulfillment mail clerk is connected. Patient is using the lanyard or keeping the fulfillment mail clerk in her lap. Patient states she can feel the [employer] capsule in her throat. I asked the patient to try to ride it out until tomorrow afternoon, when the test should be completed, as I believe the fulfillment mail clerk is still working. I did tell her that if the fulfillment mail clerk starts beeping continuously then put it in another room or her car so it does not keep her awake overnight. Patient agreed with the plan. I gave the patient my contact information. Remigio Villar RN documented in this encounter [facility] 02-06-2024 Nurse Note This patient was [...] bleeding. This patient tolerated this procedure well. [facility] 02-06-2024 Nurse Note This patient was [...] this procedure well. documented in this encounter [facility] 02-06-2024 History and physical note HISTORY [...] SURGICAL HISTORY Procedure Laterality Date EGD W/O [facility] SPEC VARICIES INJ 11/16/2023 FAMILY HISTORY Problem [...] SENSIMIST) 27.5 mcg/actuation nasal spray Use [address] in each nostril two times a day. [...] which included preparing to see the patient, usuq-di-xirr patient care, completing clinical documentation, and performing a medically appropriate examination. Instructions Given to Patient: Patient given verbal preop instructions and voices comprehension and compliance. SIGNATURE: Karly Magaña APRN.CNP PATIENT NAME: Ace Leonardo DATE: February 06, 2024 TIME: 11:21 AM PAGER/CONTACT #: T [facility] 02-06-2024 History and physical note HISTORY [...] SURGICAL HISTORY Procedure Laterality Date EGD W/O [facility] SPEC VARICIES INJ 11/16/2023 FAMILY HISTORY Problem [...] SENSIMIST) 27.5 mcg/actuation nasal spray Use [address] in each nostril two times a day. [...] which included preparing to see the patient, mkqw-ms-dxwv patient care, completing clinical documentation, and performing a medically appropriate examination. Instructions Given to Patient: Patient given verbal preop instructions and voices comprehension and compliance. SIGNATURE: Karly Magaña APRN.CNP PATIENT NAME: Ace Leonardo DATE: February 06, 2024 TIME: 11:21 AM PAGER/CONTACT #: documented in this encounter [facility] 01-30-2024 Note HNO ID: [id number] Author: REMIGIO VILLAR RN Service: ? Author [...] patient's questions were answered. Remigio Villar RN [facility] 01-30-2024 History of Present illness Narrative Patient [...] SURGICAL HISTORY Procedure Laterality Date EGD W/O [facility] SPEC VARICIES INJ 11/16/2023 Social History Tobacco [...] SENSIMIST) 27.5 mcg/actuation nasal spray Use [address] in each nostril two times a day. [...] (bmi) of 40.0 to 44.9 in adult ([facility]) Plan: ASSESSMENT/PLAN: 1. Gastroesophageal reflux disease, unspecified [...] 40.0 to 44.9 in adult ([facility]) - ICD9: 278.01, V85.41, ICD10: E66.813, E66.01, Z68.41 Stable Medical Decision Making: Problems: Moderate: New problem with uncertain prognosis Data: Unique test(s) ordered: 3+ Risk: Low: Low risk from testing/treatment Medical Decision Making Level: 4 - Moderate Sidney Boone M.D., F.A.C.S. documented in this encounter [facility] 01-30-2024 Instructions Sidney Boone MD - 01/30/2024 9:45 AM EDT Thank you for coming to see me today. It is my pleasure to take care of you. If you have any questions regarding your visit, please don't hesitate to contact us. documented in this encounter [facility] 01-30-2024 Note HNO ID: [id number] Author: SIDNEY BOONE MD Service: ? Author [...] SURGICAL HISTORY Procedure Laterality Date EGD W/O [facility] SPEC VARICIES INJ 11/16/2023 Social History Tobacco [...] SENSIMIST) 27.5 mcg/actuation nasal spray Use [address] in each nostril two times a day. [...] (bmi) of 40.0 to 44.9 in adult ([facility]) Plan: ASSESSMENT/PLAN: 1. Gastroesophageal reflux disease, unspecified [...] 40.0 to 44.9 in adult ([facility]) - ICD9: 278.01, V85.41, ICD10: E66.813, E66.01, Z68.41 Stable Medical Decision Making: Problems: Moderate: New problem with uncertain prognosis Data: Unique test(s) ordered: 3+ Risk: Low: Low risk from testing/treatment Medical Decision Making Level: 4 - Moderate Sidney Boone M.D., F.A.C.S. [facility] 01-03-2024 Note HNO ID: [id number] Author: ARIEL GUO MD Service: ? Author [...] see her back once these are done. [facility] 01-03-2024 History of Present illness Narrative Subjective: [...] these are done. documented in this encounter [facility] 12-31-2023 Telephone encounter Note Per Dr. Guo patient to have esophageal manometry & a 48 hr PH probe. Email sent to Remigio Villar to have their office review and call patient. Patient aware their office will call to schedule. Patient then to follow back up with Richardson's office after appointments are done Keren Martinez Cracker And Cookie Machine Operator [facility] 12-31-[address] Guo patient to have esophageal manometry & a 48 hr PH probe. Email sent to Remigio Villar to have their office review and call patient. Patient aware their office will call to schedule. Patient then to follow back up with Richardson's office after appointments are done Keren Martinez Cracker And Cookie Machine Operator documented in this encounter [facility] 12-31-2023 Telephone encounter Note Prescription Refill [...] RACIEL Su December 31, 2023 10:[address] [facility] 12-31-2023 Miscellaneous Notes Prescription Refill Information [...] 2023 10:34 AM documented in this encounter [facility] 11-19-2023 Telephone encounter Note Contacted Ace with the Recommendations below. She stated the pain was the same as it was in the ED. I recommended if the pain gets worse, or doesn't go away to be reevaluated in the ED. She voiced understanding and had no further questions.Cassandra Nicholson RN [facility] 11-19-2023 Miscellaneous Notes Contacted Ace with [...] over the weekend. She was evaluated at [facility] ER and given medication for nausea and discharged to home. She is wondering if there is anything she should be doing for pain? Denies emesis or cough/hemoptysis. Reports the pain interferes with sleep. She would like a work excuse for today if possible. Patient can be reached at [phone] Ivis Richter LPN documented in this encounter [facility] 11-19-2023 Telephone encounter Note Patient calling and reports she has had constant aching pain in her lower abdomen since EGD. Occasionally sharp depending on activity and had signifcant nausea over the weekend. She was evaluated at [facility] ER and given medication for nausea and discharged to home. She is wondering if there is anything she should be doing for pain? Denies emesis or cough/hemoptysis. Reports the pain interferes with sleep. She would like a work excuse for today if possible. Patient can be reached at [phone] [facility] 11-18-2023 Note HNO ID: [id number] Author: JEROME ALLEN APRN.GIOVANNA Service: ? Author Type: Nurse Practitioner Type: [...] of 10. EGD was performed in the [facility] ED. Recommended patient return to [facility] emergency room. Patient states she will be seen at [facility]. Verbalized understanding agrees with plan of care. Jerome Allen APRN.GIOVANNA [facility] 11-18-2023 History of Present illness Narrative Nontoxic-appearing female presents urgent care chief complaint esophageal and abdominal pain. Duration of symptoms yesterday. Associated symptoms listed above. Patient states on November 15 she had a EGD. States pain was so severe last night it kept her up. Patient rates pain 7-8 out of 10. EGD was performed in the [facility] ED. Recommended patient return to [facility] emergency room. Patient states she will be seen at [facility]. Verbalized understanding agrees with plan of care. Jerome Allen APRN.GIOVANNA documented in this encounter [facility] 11-16-2023 History and physical note HISTORY [...] had a gastric emptying study done at [facility] on May that was normal. Patient [...] SENSIMIST) 27.5 mcg/actuation nasal spray Use [address] in each nostril two times a day. [...] entered by the nurse and reviewed by al Nursing Notes: Ivis Richter LPN 09/21/2023 8:37 [...] esophagitis present (primary encounter diagnosis) Monse Chapin APRN.JET WIPER UPDATED HISTORY AND PHYSICAL EXAMINATION SERVICE DATE: [...] DATE: November 16, 2023 TIME: 11:07 AM [facility] 11-16-2023 History and physical note HISTORY AND [...] had a gastric emptying study done at [facility] on May that was normal. Patient [...] SENSIMIST) 27.5 mcg/actuation nasal spray Use [address] in each nostril two times a day. [...] entered by the nurse and reviewed by al Nursing Notes: Ivis Richter LPN 09/21/2023 8:37 [...] last Mammogram screening? N/A Last Colonoscopy: N/A Ivsi ShoshanaRAUL PHYSICAL EXAMINATION: General: The patient is 22 [...] esophagitis present (primary encounter diagnosis) Monse Chapin APRN.CNP UPDATED HISTORY AND PHYSICAL EXAMINATION SERVICE DATE: [...] TIME: 11:07 AM documented in this encounter [facility] 09-21-2023 Note HNO ID: [id number] Author: MONSE CHAPIN APRN.CNP Service: ? Author [...] had a gastric emptying study done at [facility] on May that was normal. Patient [...] SENSIMIST) 27.5 mcg/actuation nasal spray Use [address] in each nostril two times a day. [...] entered by the nurse and reviewed by al Nursing Notes: Ivis Richter LPN 09/21/2023 8:37 [...] sexually transmitted diseases. (more content not included)... [facility] 09-21-2023 History of Present illness Narrative HISTORY [...] had a gastric emptying study done at [facility] on May that was normal. Patient [...] SENSIMIST) 27.5 mcg/actuation nasal spray Use [address] in each nostril two times a day. [...] Mammogram screening? N/A Last Colonoscopy: N/A Ivis AkilahRAUL simpson PHYSICAL EXAMINATION: General: The patient is 22 [...] unspecified whether esophagitis present (primary encounter diagnosis) oMnse Chapin APRN.JET WIPER documented in this encounter [facility] 09-21-2023 Nurse Note REVIEW OF SYSTEMS: [...] N/A Last Colonoscopy: N/A Ivis Richter LPN [facility] 09-21-2023 Nurse Note REVIEW OF SYSTEMS: [...] Ivis Richter LPN documented in this encounter [facility] 09-13-2023 Telephone encounter Note Referral received, given to [facility] housing assistant property manager to reach out to patient for an appointment. Ella Ray LPN September 13, 2023 3:[address] [facility] 09-13-2023 Miscellaneous Notes Referral received, given to [facility] housing assistant property manager to reach out to patient for an appointment. Ella Ray LPN September 13, 2023 3:43 PM No appointment or referral for this patient. Ella Ray LPN September 13, 2023 3:[address] from Dr. Lino's office at [facility] calling and asking for update on appointment with Dr. Guo. I didn't see anything scheduled. Prashanth will fax referral again. documented in this encounter [facility] 09-13-2023 Telephone encounter Note No appointment or referral for this patient. Ella Ray LPN September 13, 2023 3:[address] [facility] 09-13-2023 Telephone encounter Note Prashanth from Dr. Lino's office at [facility] calling and asking for update on appointment with Dr. Guo. I didn't see anything scheduled. Prashanth will fax referral again. [facility] 09-05-2023 Instructions Hemalatha Anthony PA-C - [...] tips for improved daily living with POTS. [email or web address] ts Orthostatic Workout There are videos /playlist/podcast to viewed and helped for exercises and wellness for POTS and Orthostatics Instructions:https://www.[employer]. com/channel/[email or web address] hDA In your search bar in the [...] support people Also follow us along on [employer] account ISAURA Also besides the exercise are some morales mediation videos . Click and watch. Utilize when your adrenaline is active. May even play music to go along. Play the video as often you want to help as an additional tool to reset the adrenaline https://www.QuickoLabsube.com/watch?v=h VXp6fAsML2 https://www.Quicko[employer].com/watch?v=c 6rMgyI-3pU&feature=youtu.be https://www.Quicko[employer].com/watch?v=K 1kB2tMaP85 Shared Medical Appointments To schedule the [facility] please call during Sunday-Sunday 9 am - 4 pm , THE CALL CENTER # [phone] The CALL CENTER IS OPEN 24 hours/ 7 DAYS PER WEEK Please be patient with the phone line. We are honored and glad to have you part of the SMA for POTS Welcome to [facility] (SHARED MEDICAL APPOINTMENTS) We have learned at the [facility] and especially in my work and [...] and the Autonomic Team Scheduling Phone numbers [facility] Scheduling [phone] Neurological [place] Scheduling [phone] Cardiology - General [phone] Endocrinology [phone] Ophthalmology [phone] Physical Therapy/ Occupational Therapy [phone] Cardiology General [phone] Holter walk in [phone] walk in J-2-2 EKG walk in [phone] walk in J-1-4 Echo same day [phone] Cardiac tilt [phone] The nursing staff and medical assistants are a major part of YOUR TREATMENT TEAM and will be handling your phone calls, [employer] messages and inquiries, if any. Unless explicitly [...] do not comment on most testing on [employer] in a message or commentary unless there [...] with this process. documented in this encounter [facility] 09-05-2023 Note HNO ID: [id number] Author: HEMALATHA ANTHONY PA-C Service: ? Author Type: Physician Bone Char Kiln Operator Type: Progress Notes Filed: 09/05/2023 11:20 Note [...] then will redraw at next visit. Hemalatha Atnhony PA-C CHIEF COMPLAINT: follow up HISTORY OF [...] to help any allergies. Did see an technical recruiter and did not test positive for any allergies. Was diagnosed with chronic rhinitis. Notes her depression has improved as well, has been following with primary care for this. Did not see her central station operator, did not have skin biopsy done as [...] new left hip (more content not included)... [facility] 09-05-2023 History of Present illness Narrative ESTABLISHED [...] to help any allergies. Did see an technical recruiter and did not test positive for any allergies. Was diagnosed with chronic rhinitis. Notes her depression has improved as well, has been following with primary care for this. Did not see her central station operator, did not have skin biopsy done as [...] SENSIMIST) 27.5 mcg/actuation nasal spray Use [address] in each nostril two times a day. [...] dysarthria; comprehension, naming, repetition intact. Short and [facility] memory intact. CN: PERRL, fundi appear normal [...] which included preparing to see the patient, elqv-qw-ftwa patient care, completing clinical documentation, obtaining and/or reviewing separately obtained history, performing a medically appropriate examination, counseling and educating the patient/family/caregiver, and ordering medications, tests, or procedures. This document has been created with the use of voice recognition technology. It may contain inaccuracies: (e.g. misspellings, inaccurate syntax or word sense) that have escaped review. documented in this encounter [facility] 08-31-2023 Instructions Zita Tamayo MD - 08/31/2023 9:03 AM EDT Flonase sensimist 1 spray in each nostril twice a day. Ketotifen eye drops documented in this encounter [facility] 08-31-2023 Note HNO ID: [id number] Author: ZITA TAMAYO MD Service: ? Author Type: Physician Type: Progress Notes Filed: 08/31/2023 09:52 Note Text: [facility] New Patient Visit [...] SENSIMIST) 27.5 mcg/actuation nasal spray; Use [address] in each nostril two times a day. - ketotifen fumarate (ZADITOR) 0.025 % (0.035 %) ophthalmic solution; Use 1 Drop in both eyes two times a day as needed. Return to clinic in 3 months, sooner if there's any concern. AVS provided to patient and included recap of today's appointment and medical plan. Zita Tamayo MD Allergy AND Clinical Immunology [facility] 08-31-2023 History of Present illness Narrative [facility] New Patient Visit [...] SENSIMIST) 27.5 mcg/actuation nasal spray; Use [address] in each nostril two times a day. - ketotifen fumarate (ZADITOR) 0.025 % (0.035 %) ophthalmic solution; Use 1 Drop in both eyes two times a day as needed. Return to clinic in 3 months, sooner if there's any concern. AVS provided to patient and included recap of today's appointment and medical plan. Zita Tamayo MD Allergy & Clinical Immunology [facility] documented in this encounter [facility] 08-31-2023 Nurse Note NEW. Patient here for environmental/food allergies - states Food - GERD, noted undigested food in BM x years Seasonal - sneezing, itching eyes, clearing throat, congestion, PND worst in Spring to Summer months Last date Zyrtec she took was 08/28/2023. [facility] 08-31-2023 Nurse Note NEW. Patient here for environmental/food allergies - states Food - GERD, noted undigested food in BM x years Seasonal - sneezing, itching eyes, clearing throat, congestion, PND worst in Spring to Summer months Last date Zyrtec she took was 08/28/2023. documented in this encounter [facility] 06-18-2023 Miscellaneous Notes Please see results: Scan on 06/18/2023 3:15 PM by Provider, External, CHLOEC: Overnight Pulse Ox Deana Gastelum LPN Fax sent to [facility] requesting records. Deana Gastelum LPN documented in this encounter [facility] 05-18-2023 History of Present illness Narrative [...] PATIENT PRESENTS WITH AN IMPLANTABLE OR ATTACHED CULINARY ART TEACHER: N/A CREATININE: Creatinine Date Value Ref Range [...] 08:10 PATIENT DISCHARGED TO: Ambulatory patient, left [place] department area. A Diagnostic radioactive procedure has taken place, with no further precautions necessary other than routine body substance precautions. More information regarding radiation safety can be found using this link: [email or web address] [email or web address]-%20Diagnostic%20Nucl ear%20Medicine%20Procedures.pdf SIGNATURE: USHA Mims) PATIENT NAME: Ace Leonardo DATE: May 18, 2023 TIME: 10:20 AM PAGER/CONTACT #: documented in this encounter [facility] 05-18-2023 Note HNO ID: [id number] Author: MOI PORTILLO RT (R) Service: Nuclear [...] PATIENT PRESENTS WITH AN IMPLANTABLE OR ATTACHED CULINARY ART TEACHER: N/A CREATININE: Creatinine Date Value Ref Range [...] 08:10 PATIENT DISCHARGED TO: Ambulatory patient, left [place] department area. A Diagnostic radioactive procedure has taken place, with no further precautions necessary other than routine body substance precautions. More information regarding radiation safety can be found using this link: [email or web address] [email or web address]-% 20Diagnostic%20Nuclear%20Medicine %20Procedures.pdf SIGNATURE: RT Prasanna(R) PATIENT NAME: Ace Leonardo DATE: May 18, 2023 TIME: 10:20 AM PAGER/CONTACT #: [facility] 05-09-2023 Note HNO ID: [id number] Author: HEMALATHA ANTHONY PA-C Service: ? Author Type: Physician Bone Char Kiln Operator Type: Progress Notes Filed: 05/09/2023 11:22 Note [...] headache, MRI of the brain obtained at [facility] is negative for signs of intracranial hypotension, [...] up frequently throughout (more content not included)... [facility] 02-22-2023 Miscellaneous Notes Faxed Prior Authorization to [facility] [phone] for Metoprolol 25 mg, 11 pages 02/22/2023. Placed documents in [facility] location. Patient notified MyChart. Diane Hickey LPN Prior Authorization Documentation Prior authorization requested for the following medication: Medication: metoprolol Provider: [employer] Name: [email or web address] Phone number: [phone] Patient ID number: [id number] [facility] Name: [facility] Patient reports she needs prior auth for metoprolol documented in this encounter [facility] 12-22-2022 Miscellaneous Notes Tilt table test showed that your blood pressure responding appropriately when upright, however, your heart rate increased significantly from 73 to 110 beats a minute. This is significant for POTS. Thank you for having this testing completed. TC to patient who verbalized understanding of providers message above. Patient to keep follow up on 01/09 with MQ. Nothing further at this time. RACIEL Su Pt called in asking for tilt table test results. Please call Pt and advise. documented in this encounter [facility] 10-04-2022 Instructions Hemalatha Anthony PA-C - [...] tips for improved daily living with POTS. [email or web address] ts Orthostatic Workout There are videos /playlist/podcast to viewed and helped for exercises and wellness for POTS and Orthostatics Instructions:https://www.[employer]. com/channel/[email or web address] hDA In your search bar in the [...] support people Also follow us along on [employer] account ISAURA Also besides the exercise are some morales mediation videos . Click and watch. Utilize when your adrenaline is active. May even play music to go along. Play the video as often you want to help as an additional tool to reset the adrenaline [email or web address]://www.youSyncbakube.com/watch?v=h [email or web address] https://www.[email or web address]/watch?v=c 6rMgyI-3pU&feature=youtu.be https://www.QuickoLabsube.com/watch?v=K [email or web address] Shared Medical Appointments To schedule the [facility] please call during Sunday-Sunday 9 am - 4 pm , THE CALL CENTER # [phone] The CALL CENTER IS OPEN 24 hours/ 7 DAYS PER WEEK Please be patient with the phone line. We are honored and glad to have you part of the SMA for POTS Welcome to [facility] (SHARED MEDICAL APPOINTMENTS) We have learned at the [facility] and especially in my work and [...] help you for wellness and better heal Taz, Dr. Karimi and the Autonomic Team Scheduling Phone numbers [facility] Scheduling [phone] Neurological [place] Scheduling [phone] Cardiology - General [phone] Endocrinology [phone] Ophthalmology [phone] Physical Therapy/ Occupational Therapy [phone] Cardiology General [phone] Holter walk in [phone] walk in J-2-2 EKG walk in [phone] walk in J-1-4 Echo same day [phone] Cardiac tilt [phone] The nursing staff and medical assistants are a major part of YOUR TREATMENT TEAM and will be handling your phone calls, [employer] messages and inquiries, if any. Unless explicitly [...] do not comment on most testing on [employer] in a message or commentary unless there [...] with this process. documented in this encounter [facility] 10-04-2022 History of Present illness Narrative Images from the original note were not included. Neurology Outpatient Clinic Date: October 04, 2022 Patient Name: Ace Lenoardo Referring physician: Bernadette Tirado [address] [facility] [address] Consult requested for dizziness by Dr. Tirado. [...] had bent over while at work at [employer], and then quickly stood up causing her [...] 5/5 Wrist Extension 5/5 5/5 Wrist Flexion 5/ 5/5 Finger Flexion / 5/5 Finger Extension / 5/ Finger Abd / 5/5 Finger Add 08/18 5 MUSCLES Lower Extremity RIGHT LEFT Hip Flexion 08/18 5/5 Hip Extension 08/18 5/5 BiFem (Knee Flex) 08/18 5 Quads (Knee Ext) 08/18 5 Gastroc (Plantflx) 08/18 5 TibAnt (Dorsiflx) 08/18 08/18 FlxHLong (Toe Flex) 08/18 08/18 ExtHLong (Toe Ext) 08/18 08/18 Sensory Examination Intact to vibration throughout, intact proprioception. Minimally decreased sensation to temperature in both the hands and feet equally and bilaterally, minimally decreased to sharp in the feet bilaterally. Reflexes Right Left Bicep 2/4 2/4 Tricep 2/4 2/4 BrRad /4 2/4 Knee 2/4 2/4 Ankle 2/ 2/4 Glaser Response Negative Negative Coordination: finger-to- nose-finger intact bilaterally and kbfv-yi-xhjv intact bilaterally. Gait: Patient's gait is normal, can heel and toe walk and can tandem walk Romberg: Negative DATA REVIEWED Actual films/image/tracing reviewed and summarized as follows: ECHO, mri brain, tilt table Old records reviewed and summarized as follows: limited- [facility] (cardio and pcp) Assessment/Plan Assessment & [...] exercise. Has been evaluated by cardiology at [facility] with normal ECHO, normal holter, and [...] which included preparing to see the patient, [id number]-[id number] patient care, completing clinical documentation, obtaining and/or reviewing separately obtained history, performing a medically appropriate examination, counseling and educating the patient/family/caregiver, and ordering medications, tests, or procedures. Hemalatha Anthony PA-C [facility] Neurology This document has been created with the use of voice recognition technology. It may contain inaccuracies: (e.g. misspellings, inaccurate syntax or word sense) that have escaped review. documented in this encounter [facility] 09-14-2022 Miscellaneous Notes Received referral request from [facility] for this patient to be seen for lightheadedness. Referral printed off and given to Stephanie Joyce. Deana Gastelum LPN documented in this encounter [facility] 08-03-2021 History of Present illness Narrative [...] ER for evaluation. documented in this encounter [facility] Evaluation note Diagnosis Injury of head, initial encounter- Primary documented in this encounter [facility] note* Diagnosis Orthostatic hypotension- Primary Dizziness Dizziness and giddiness documented in this encounter [facility] note* Diagnosis Nausea Nausea alone Dyspepsia Dyspepsia and other specified disorders of function of stomach documented in this encounter [facility] note* Diagnosis Adverse reaction to food, subsequent encounter- Primary Gastroesophageal reflux disease, unspecified whether esophagitis present Chronic rhinitis Other chronic allergic conjunctivitis of both eyes documented in this encounter [facility] note* Diagnosis Bilateral hand swelling- Primary Sciatica of left side Sciatica Nausea Nausea alone Obstructive sleep apnea Obstructive sleep apnea (adult) (pediatric) POTS (postural orthostatic tachycardia syndrome) Tachycardia, unspecified Altered mental status, unspecified altered mental status type Orthostatic hypotension Other headache syndrome documented in this encounter [facility] note* Diagnosis Gastroesophageal reflux disease, unspecified whether esophagitis present- Primary documented in this encounter [facility] note* Diagnosis Gastro-esophageal reflux disease without esophagitis- Primary Esophageal reflux Gastroesophageal reflux disease, unspecified whether esophagitis present documented in this encounter [facility] note* Diagnosis Procedure not carried out- Primary Procedure not carried out for other reasons documented in this encounter [facility] note* Diagnosis Gastroesophageal reflux disease, unspecified whether esophagitis present- Primary documented in this encounter [facility] note* Diagnosis Gastroesophageal reflux disease, unspecified whether esophagitis present- Primary documented in this encounter [facility] note* Diagnosis Gastroesophageal reflux disease, unspecified whether esophagitis present- Primary Regurgitation of food Class 3 severe obesity due to excess calories without serious comorbidity with body mass index (BMI) of 40.0 to 44.9 in adult (HCC) Gastroesophageal reflux disease, unspecified whether esophagitis present Gastroesophageal reflux disease, unspecified whether esophagitis present documented in this encounter [facility] note* Diagnosis Gastroesophageal reflux disease, unspecified whether esophagitis present Pre-op examination Preoperative examination, unspecified Postural orthostatic tachycardia syndrome (POTS) MIRTA (obstructive sleep apnea) Obstructive sleep apnea (adult) (pediatric) Obesity, Class III, BMI >= 40 Morbid obesity documented in this encounter [facility] note* Diagnosis URI, acute- Primary Acute upper respiratory infections of unspecified site [facility] ([facility] Diagnostic Procedure Only (Routine) - Closed Specialty Diagnoses / Procedures Referred By Controdolfo t Referred To Contact MOLECULAR & FUNCTIONAL IMAGING Diagnoses Nausea Dyspepsia Procedures NM GASTRIC EMPTYING SOLID GASTRIC EMPTYING STUDY Hemalatha Anthony PA-C [address] [place] [address] Molecular & Functional Imaging [address] [id number] Referral ID Status Reason Start Date Expiration Date V isits Requested Visits Authorized [id number] Closed Auto-Generate d Referral 01/09/2023 02/08/2024 1 1 [facility] (narrative)* Outpatient Procedure (Routine) - Pending Review Specialty Diagnoses / Procedures Referred By Dennis newby Referred To Contact [facility] Diagnoses Gastroesophageal reflux disease, unspecified whether esophagitis present Procedures EGD DIAGNOSTIC ESOPHAGOGASTRODUODENOSC OPY TRANSORAL DIAGNOSTIC Monse Chapin APRN.CNP [address] [place] [address] [facility] [place] [address] [place] [address] Referral ID Status Reason Start Date Expiration Date Visits Requested Visits Authorized [id number] Pending Review Auto-Generat ed Referral 09/21/2023 09/20/2024 1 1 [facility] (n[facility]ative[facility] Outpatient Procedure (Routine) - Closed Specialty Diagnoses / Procedures Referred By Dennis t Referred To Contact [facility] Diagnoses Gastroesophageal reflux disease, unspecified whether esophagitis present Procedures EGD DIAGNOSTIC ESOPHAGOGASTRODUODENOSC OPY TRANSORAL DIAGNOSTIC Monse Chapin APRN.CNP [address] [place] [address] [facility] [address] [address] Referral ID Status Reason Start Date Expiration Date V isits Requested Visits Authorized [id number] Closed Auto-Generate d Referral 09/21/2023 09/24/2023 1 1 [facility] (n[facility]ative[facility] Outpatient Procedure (Routine) - New Request Specialty Diagnoses / Procedures Referred By Contac t Referred To [facility] Diagnoses Gastroesophageal reflux disease, unspecified whether esophagitis present Procedures PH INSERT OFF MEDS GASTROESOPHAG REFLX TEST W/CATH PH ELTRD PLCPR Ariel Guo MD [address] [place] [address] [address] Referral ID Status Reason Start Date Expiration Date Visits Requested Visits Authorized [id number] New Request Auto-Generat ed Referral 12/31/2023 12/30/2024 1 1 * Outpatient Procedure (Routine) - New Request Specialty Diagnoses / Procedures Referred By Contac t Referred To [facility] Diagnoses Gastroesophageal reflux disease, unspecified whether esophagitis present Procedures MANOMETRY ESOPHAGEAL ESOPHAGEAL MOTILITY STUDY W/INTERP&RPT Ariel Guo MD [address] [place] [address] [address] Referral ID Status Reason Start Date Expiration Date Visits Requested Visits Authorized [id number] New Request Auto-Generat ed Referral 12/31/2023 12/30/2024 1 1 [facility] ([facility]ative[facility] Outpatient Procedure (Routine) - New Request Specialty Diagnoses / Procedures Referred By Contac t Referred To [facility] Diagnoses Gastroesophageal reflux disease, unspecified whether esophagitis present Procedures MANOMETRY ESOPHAGEAL FUNCTION W/IMPEDANCE GASTROESOPHAG REFLX TEST W/INTRLUML IMPED Sidney Stahl MD [address] [id number] [address] Referral ID Status Reason Start Date Expiration Date Visits Requested Visits Authorized [id number] New Request Auto-Generat ed Referral 4 01/29/[address] [facility] Reason for Referral Specialty Diagnoses / Procedures Referred By Dennis t Referred To Contact [facility] Diagnoses Sciatica of left side Procedures CONSULT TO PHYSICAL THERAPY PHYSICAL THERAPY EVALUATION HIGH COMPLEX 45 MINS Hemalatha Anthony PA-C [address] [place] [address] [facility] [place] [address] [place] [address] Referral ID Status Reason Start Date Expiration Date Visits Requested Visits Authorized [id number] Authorized Auto-Generat ed Referral 04/16/2023 04/15/2024 1 [...] or prosecute any alcohol or drug abuse patient.[facility] the event this information is protected by the Federal Confidentiality of Alcohol and Drug Abuse Patient Records regulations: The Federal rules restrict any use of the information to criminally investigate or prosecute any alcohol or drug abuse patient.[facility] the event this information is protected by the Federal Confidentiality of Alcohol and Drug Abuse Patient Records regulations: The Federal rules restrict any use of the information to criminally investigate or prosecute any alcohol or drug abuse patient.[facility] the event this information is protected by the Federal Confidentiality of Alcohol and Drug Abuse Patient Records regulations: The Federal rules restrict any use of the information to criminally investigate or prosecute any alcohol or drug abuse patient.[facility] the event this information is protected by the Federal Confidentiality of Alcohol and Drug Abuse Patient Records regulations: The Federal rules restrict any use of the information to criminally investigate or prosecute any alcohol or drug abuse patient.[facility] the event this information is protected by the Federal Confidentiality of Alcohol and Drug Abuse Patient Records regulations: The Federal rules restrict any use of the information to criminally investigate or prosecute any alcohol or drug abuse patient.[facility] the event this information is protected by the Federal Confidentiality of Alcohol and Drug Abuse Patient Records regulations: The Federal rules restrict any use of the information to criminally investigate or prosecute any alcohol or drug abuse patient.[facility] the event this information is protected by the Federal Confidentiality of Alcohol and Drug Abuse Patient Records regulations: The Federal rules restrict any use of the information to criminally investigate or prosecute any alcohol or drug abuse patient.[facility] the event this information is protected by the Federal Confidentiality of Alcohol and Drug Abuse Patient Records regulations: The Federal rules restrict any use of the information to criminally investigate or prosecute any alcohol or drug abuse patient.[facility] the event this information is protected by the Federal Confidentiality of Alcohol and Drug Abuse Patient Records regulations: The Federal rules restrict any use of the information to criminally investigate or prosecute any alcohol or drug abuse patient.[facility] the event this information is protected by the Federal Confidentiality of Alcohol and Drug Abuse Patient Records regulations: The Federal rules restrict any use of the information to criminally investigate or prosecute any alcohol or drug abuse patient.[facility] the event this information is protected by the Federal Confidentiality of Alcohol and Drug Abuse Patient Records regulations: The Federal rules restrict any use of the information to criminally investigate or prosecute any alcohol or drug abuse patient.[facility] the event this information is protected by the Federal Confidentiality of Alcohol and Drug Abuse Patient Records regulations: The Federal rules restrict any use of the information to criminally investigate or prosecute any alcohol or drug abuse patient.[facility] the event this information is protected by the Federal Confidentiality of Alcohol and Drug Abuse Patient Records regulations: The Federal rules restrict any use of the information to criminally investigate or prosecute any alcohol or drug abuse patient.[facility] the event this information is protected by the Federal Confidentiality of Alcohol and Drug Abuse Patient Records regulations: The Federal rules restrict any use of the information to criminally investigate or prosecute any alcohol or drug abuse patient.[facility] the event this information is protected by the Federal Confidentiality of Alcohol and Drug Abuse Patient Records regulations: The Federal rules restrict any use of the information to criminally investigate or prosecute any alcohol or drug abuse patient.[facility] the event this information is protected by the Federal Confidentiality of Alcohol and Drug Abuse Patient Records regulations: The Federal rules restrict any use of the information to criminally investigate or prosecute any alcohol or drug abuse patient.[facility] the event this information is protected by the Federal Confidentiality of Alcohol and Drug Abuse Patient Records regulations: The Federal rules restrict any use of the information to criminally investigate or prosecute any alcohol or drug abuse patient.[facility] the event this information is protected by the Federal Confidentiality of Alcohol and Drug Abuse Patient Records regulations: The Federal rules restrict any use of the information to criminally investigate or prosecute any alcohol or drug abuse patient.[facility] the event this information is protected by the Federal Confidentiality of Alcohol and Drug Abuse Patient Records regulations: The Federal rules restrict any use of the information to criminally investigate or prosecute any alcohol or drug abuse patient.[facility] the event this information is protected by the Federal Confidentiality of Alcohol and Drug Abuse Patient Records regulations: The Federal rules restrict any use of the information to criminally investigate or prosecute any alcohol or drug abuse patient.[facility] the event this information is protected by the Federal Confidentiality of Alcohol and Drug Abuse Patient Records regulations: The Federal rules restrict any use of the information to criminally investigate or prosecute any alcohol or drug abuse patient.[facility] the event this information is protected by the Federal Confidentiality of Alcohol and Drug Abuse Patient Records regulations: The Federal rules restrict any use of the information to criminally investigate or prosecute any alcohol or drug abuse patient.[facility] the event this information is protected by the Federal Confidentiality of Alcohol and Drug Abuse Patient Records regulations: The Federal rules restrict any use of the information to criminally investigate or prosecute any alcohol or drug abuse patient.[facility] the event this information is protected [...] or prosecute any alcohol or drug abuse patient.[facility] Reason for Visit (unrecogniz ed section and content) Reason Comments Consult Reason Comments New Patient Reason Comments Results Reason Comments metoprolol PA Reason Comments Radiology NM Specialty Diagnoses / Procedures Referred By Contac t Referred To Contact MOLECULAR & FUNCTIONAL IMAGING Diagnoses Nausea Dyspepsia Procedures NM GASTRIC EMPTYING SOLID GASTRIC EMPTYING STUDY Hemalatha Anthony PA-C [address] [place] [address] Molecular & Functional Imaging [address] [place] [address] Referral ID Status Reason Start Date Expiration Date V isits Requested Visits Authorized [id number] Closed Auto-Generate d Referral 01/09/2023 02/08/2024 1 1 Reason Comments Follow Up Reason Comments New Patient EGD consult Specialty Diagnoses / Procedures Referred By Contac t Referred To Contact Diagnoses Consult for EGD Procedures Consult [place] [address] Referral ID Status Reason Start Date Expiration Date Visits Requested Visits Authorized [id number] Authorized Patient Cleared - Qualified 100% FAS 09/21/2023 12/20/2023 99 99 Specialty Diagnoses / Procedures Referred By Contac t Referred To Contact Diagnoses Consult for EGD Procedures Consult for EGD Self [facility] [address] [place] [address] Referral ID Status Reason Start Date Expiration Date V isits Requested Visits Authorized [id number] Closed Patient Cleared - Qualified 100% FAS 09/21/2023 12/20/2023 99 99 Reason Comments Patient Update Reason Comments Refill Request Reason Comments Follow Up EGD Reason Comments New Patient HBC ( [place] ) Specialty Diagnoses / Procedures Referred By Contac t Referred To Contact Diagnoses Gastroesophageal reflux disease, unspecified whether esophagitis present Gastroesophageal reflux disease, unspecified whether esophagitis present [K21.9] Gastroesophageal reflux disease, unspecified whether esophagitis present [K21.9] Procedures ESOPHAGEAL MOTILITY STUDY W/INTERP&RPT EGD WITH BIOPSY ESOPHAGEAL ACID REFLUX TEST W/MUCOSAL ATTACHED TELEMETRY PH ELECTRODE PLACEMENT RECORDING, ANALYSIS, & INTERPRETATION [] ESOPHAGEAL MANOMETRY [facility] [address] [place] [address] Referral ID Status Reason Start Date Expiration Date Visits Re quested Visits Authorized [id number] 1 1 Reason Comments Patient Question Reason Comments Sore Throat ST, [place], nausea, iris estion, bodyaches and diarrhea x 1 day Reason Onset Date Comments Refill Request 02/14/2024 Care Teams (unrecognized sec tion and content) Hospital Staff Pharmacist Relationship Specialty Start Date End Date Bernadette Tirado DO [address] [place] [address] PCP - General Family Medicine 12/07/22 Hospital Staff Pharmacist Relationship Specialty Start Date End Date Bernadette Tirado DO [address] [place] [address] PCP - General Family Medicine 12/07/22 Hospital Staff Pharmacist Relationship Specialty Start Date End Date Bernadette Tirado DO [address] [place] [address] PCP - General Family Medicine 12/07/22 Hospital Staff Pharmacist Relationship Specialty Start Date End Date Bernadette Tirado DO [address] [place] [address] PCP - General Family Medicine 12/07/22 Hospital Staff Pharmacist Relationship Specialty Start Date End Date Bernadette Tirado DO [address] [place] [address] PCP - General Family Medicine 12/07/22 Hospital Staff Pharmacist Relationship Specialty Start Date End Date Bernadette Tirado Armando DO [address] [place] [address] PCP - General Family Medicine 12/07/22 Hospital Staff Pharmacist Relationship Specialty Start Date End Date Bernadette Tirado ArmandoDO [address] [place] [address] PCP - General Family Medicine 12/07/22 Hospital Staff Pharmacist Relationship Specialty Start Date End Date Bernadette Tirado DO [address] [place] [address] PCP - General Family Medicine 12/07/22 Hospital Staff Pharmacist Relationship Specialty Start Date End Date Bernadette Tirado DO [address] [place] [address] PCP - General Family Medicine 12/07/22 Hospital Staff Pharmacist Relationship Specialty Start Date End Date Neela Lino MD [address] [place] [address] PCP - General Family Medicine 09/21/23 Hospital Staff Pharmacist Relationship Specialty Start Date End Date Neela Lino MD [address] [place] [address] PCP - General Family Medicine 09/21/23 Hospital Staff Pharmacist Relationship Specialty Start Date End Date Neela Lino MD [address] [place] [address] PCP - General Family Medicine 09/21/23 Hospital Staff Pharmacist Relationship Specialty Start Date End Date Neela Lino MD [address] [place] [address] PCP - General Family Medicine 09/21/23 Hospital Staff Pharmacist Relationship Specialty Start Date End Date Neela Lino MD [address] [place] [address] PCP - General Family Medicine 09/21/23 Hospital Staff Pharmacist Relationship Specialty Start Date End Date Neela Lino MD [address] [place] [address] PCP - General Family Medicine 09/21/23 Hospital Staff Pharmacist Relationship Specialty Start Date End Date Neela Lino MD [address] [place] [address] PCP - General Family Medicine 09/21/23 Hospital Staff Pharmacist Relationship Specialty Start Date End Date Neela Lino MD [address] [place] [address] PCP - General Family Medicine 09/21/23 Hospital Staff Pharmacist Relationship Specialty Start Date End Date Neela Lino MD [address] [place] [address] PCP - General Family Medicine 09/21/23 Hospital Staff Pharmacist Relationship Specialty Start Date End Date Neela Lino MD [address] [place] [address] PCP - General Family Medicine 09/21/23 Hospital Staff Pharmacist Relationship Specialty Start Date End Date Neela Lino MD [address] [place] [address] PCP - General Family Medicine 09/21/23 INFORMATION SOURCE (unrecogn ized section and content) DATE CREATED AUTHOR 11/25/2023 [facility] DATE CREATED AUTHOR AUTHOR'S ORGANIZ ATION 02/19/2024 [facility] DATE CREATED AUTHOR AUTHOR'S ORGANIZ ATION 02/19/2024 [facility] Scheduled Active and Recently Administ ered Medications (unrecognized section and content) Medication Order 02/04/2024 02/05/2024 02/06/2024 metoclopramide HCl 5 mg injection (REGLAN) (COMPLETED) 5 mg, INTRAVENOUS, ONCE, 1 dose, On Sun02/06/24 at 1200, Pharmacist may modify dose per [facility] dose optimization consult agreement: Yes 1201 (Given - Provid er: July Lyons, HERI) ondansetron (PF) 4 mg injection (ZOFRAN) (COMPLETED) 4 mg, INTRAVENOUS, ONCE, 1 dose, On Sun02/06/24 at 1200, Give IV push over 2 minutes 1201 (Given - Provid er: July Lyons, HERI) Continuous Medication Order 02/04/2024 02/05/2024 02/06/2024 lactated [...] BE BASED ON THE PRIMARY CLINICAL RECORDS. [employer] provides no warranty or guarantee of the accuracy or completeness of information in this document.
== END | disposition home or self-care (01) ==
PROVIDERS: PCP Family Medicine; Visit Provider Family Medicine
DX: J02.9 Acute pharyngitis, unspecified (principal)
CPT/HCPCS: 36415; 80053; 85025; 86308

== ENCOUNTER → 2024-05-08 | Outpatient (CLI) | payer OTHER, SELFPAY ==
[2024-05-08 15:32] LABS: Vitamin B12 241 pg/mL (211-911)
[2024-05-08 15:51] LABS: ALB/GLOB Ratio 0.8 RATIO (0.9-2.4); AST(SGOT) 20 U/L (15-37); Alanine Aminotransfer ALT/SGPT 20 U/L (13-56); Albumin, Serum 3.3 g/dL (3.2-5.0); Alkaline Phosphatase 86 U/L (45-117); Anion Gap 7 (5-15); BUN 10 mg/dL (7-18); Calcium,Total 9.1 mg/dL (8.5-10.1); Chloride 105 mmol/L (98-107); Creatinine, Serum 0.71 mg/dL (0.55-1.02); EST Glomerular Filtration Rate 109 mL/min (>60); Est Glom Filt Rate - Afr Amer 131 mL/min (>60); Globulin 3.9 g/dL (2.2-4.2); Glucose 75 mg/dL (74-106); Potassium 3.8 mmol/L (3.5-5.1); Protein, Total 7.2 g/dL (6.4-8.2); Sodium Level 137 mmol/L (136-145)
== END | disposition home or self-care (01) ==
LOC: MFPLAB 11:05
PROVIDERS: PCP Family Medicine; Visit Provider Family Medicine
DX: E66.9 Obesity, unspecified (principal); G90.A Postural orthostatic tachycardia syndrome [POTS]; E53.8 Deficiency of other specified B group vitamins
CPT/HCPCS: 36415; 80053; 82607; 84443; 86340

== ENCOUNTER → 2024-06-04 | Outpatient (CLI) | payer OTHER, SELFPAY ==
--- NOTE | 2024-06-04 14:20 | RAD_ITS ---
PROCEDURE: Thoracic spine radiographs REASON FOR EXAM: Pain, trauma TECHNIQUE: Three views of the thoracic spine COMPARISON: None FINDINGS: See impression RAD/Thoracic Spine 3 Views IMPRESSION: Alignment is maintained. Vertebral body heights and disc spaces are preserved. Posterior ribs and pedicles are intact. Reading Location: [place]
== END | disposition home or self-care (01) ==
PROVIDERS: PCP Family Medicine; Referring Provider Family Medicine; Visit Provider Family Medicine
DX: M54.6 Pain in thoracic spine (principal)
CPT/HCPCS: 72072

== ENCOUNTER 2024-06-22 23:07 | Emergency (ER) | payer OTHER, SELFPAY ==
[2024-06-22 23:08] VITALS: BP 158/113; PULSE 92; RESP 16; TEMP 36.8; O2SAT 100; BMI 42.5
--- NOTE | 2024-06-22 23:12 | EDS_ITS ---
HPI History of Present Illness Chief Complaint: Abd Pain [facility] Medical History Postural orthostatic tachycardia syndrome [POTS] Anxiety Home Medications ?Medication ?Instructions ?Recorded ?Last Taken ?Type mecobalamin (vitamin B12) 1,000 2,000 mcg PO DAILY 12/07 Unknown History mcg chewable tablet azelastine 137 mcg (0.1 %) nasal 2 spray intranasal BI D #30 mL 02/13/24 Unknown Rx spray metoprolol succinate 50 mg 50 mg PO QDAY #90 tabs 02/14 06/09 Unknown Rx tablet,extended release 24 hr L norgest/E estradiol-E estrad See Rx Instructions PO .COMPLEX 03/10/24 Unknown History 0.15 mg-30 mcg (84)/10 mcg(7) tabs,3mos (Jaimiess) cetirizine 10 mg capsule (Zyrtec) 10 mg PO QDAY PRN Unknown History ondansetron 4 mg disintegrating 4 mg PO Q8H 03/10/24 U nknown History tablet sertraline 100 mg tablet 100 mg PO QDAY #30 tabs 04/17 05/10 Unknown Rx viloxazine 200 mg capsule,extended 400 mg (2 x 200 mg) PO QDAY #60 05/06/24 Unknown Rx release 24 hr (Qelbree) caps trazodone 50 mg tablet 50 mg PO QHS PRN insomnia #9 0 tabs 05/22/24 Unknown Rx Allergy/AdvReac Type Severity Reaction Status Date / Time cyclobenzaprine Allergy Mild Rash Verified 06/22/24 23:08 Family History (Updated 03/10/24 @ 06:55 by Zeynep Villalba) Other Alcoholism Arthritis Cancer Diabetes Hypertension Obesity Seizures Social History (Updated 03/10/24 @ 06:53 by Zeynep Villalba) household members: significant other Smoking Status: Never smoker alcohol intake: current alcohol intake frequency: holidays/special occasions only substance use type: does not use caffeine: Yes (x2 week) EXAM Physical Exam Const Vital Signs: 06/22/24 23:08 Temperature 98.2 F Temperature Source Oral Pulse Rate 92 Respiratory Rate 16 Blood Pressure 158/113 H Blood Pressure Mean 128 Pulse Ox 100 Oxygen Delivery Method Room Air MDM MDM MDM Narrative Medical decision making narrative: HISTORY OF PRESENT ILLNESS: 23-year-old female presents with abdominal pain, diffuse weakness (denies focal weakness) and dark stool for couple days. She notes for the past 2-1/2 weeks has been taking 800 mg ibuprofen. Patient endorses upper abdominal pain. The pain does not radiate. Denies flank pain notes pain is constant. Worse with food. Denies vomiting. Notes history of endoscopy but denies any other abdominal surgeries. Denies frequency urgency or dysuria. Denies vaginal bleeding or discharge. Note she has not had a period for the last several years secondary to taking control. Denies any alcohol use. Denies any chest pain or shortness of breath. REVIEW OF SYSTEMS: Pertinent positives: Abdominal pain, dark stools Pertinent negatives: Chest pain, shortness of breath, vomiting, trouble urinate PHYSICAL EXAM: Nursing triage notes reviewed, Vital signs reviewed Constitutional: please see mdm HENT: MMM Eyes: Pupils equal round and reactive to light, Extraocular muscles intact Neck: No stridor, no JVD, full neck ROM Lungs: Clear to auscultation, No wheezing or rales. No increased work of breathing, no conversational dyspnea, no accessory muscle use, no nasal flaring. No respiratory distress noted Heart: Regular rate and rhythm, No murmurs, No rubs and No gallops, 2+ distal pulses (radial, femoral, posterior tibial) in all extremities Abdomen: No appreciable tenderness on palpation, But no rigidity, rebound or guarding, no obvious peritoneal signs, no palpable pulsatile abdominal masses, no auscultated abdominal bruit : No CVAT Extremities: No edema Neuro: No new focal neurological deficits, cranial nerves II through XII intact, 5/5 strength in all present extremities. Intact sensation to light touch in all present extremities, 2+ reflexes bilateral patella tendons. Skin: No rash or lesions noted MEDICAL DECISION MAKING: Chief Complaint: Abdominal pain External records reviewed: Imaging reviewed: Reviewed CT scan of the abdomen pelvis from November 2023 which showed no evidence of perforation, no significant abnormalities similar bowel Factors affecting care: Anxiety, ADHD Social determinants of health: Denies alcohol History obtained from others: Boyfriend Consults: none [facility] Narrative: Patient was initially hemodynamically stable, afebrile and nontoxic-appearing. Exam benign. Exam not consistent with perforation, obstruction or acute surgical emergency. As such there is no indication for advanced imaging at this time. I considered the following differential diagnosis: NSAID use gastritis, AAA, small bowel obstruction, abdominal perforation, appendicitis, pancreatitis, hepatobiliary pathology (acute cholecystitis), mesenteric ischemia, pathology (ie nephrolithiasis, pyelonephritis). ALL IMAGES (IF OBTAINED) HAVE BEEN PERSONALLY REVIEWED AND INTERPRETED BY MYSELF. CBC with slight leukocytosis suggestive of systemic information however downtrending from prior and consistent with prior studies. There is no significant anemia or thrombocytopenia no Lipase is wnl indicating no pancreatic inflammation. CMP without evidence of acute kidney injury, significant electrolyte abnormality, anion gap to suggest end organ hypo-perfusion, no evidence of metabolic acidosis with a normal bicarbonate, no evidence of hepatobiliary obstructive pathology. Repeat abdominal exam remained benign. Patient is likely some from NSAID use gastritis. I did order test over the patient did not have lower abdominal pain and she cannot provide a viable urine sample and as such I encouraged her to use a home as if she is concerned about but she is not because she is on control compliant. Strict return precaution were discussed. All questions answered. Recommended close outpatient GI follow-up The patient and/or family, caregivers express understanding. The patient and/or family, caregivers agrees with the plan. Shared decision making: I will have a discussion with the patient and or visitors regarding risk /benefits of further testing or admission. They will be made aware of of the risk/benefits inherent in this decision they will be given the opportunity to voice understanding. Total critical care time today provided was at least 0 minutes. This excludes separately billable procedures. Critical care time (if documented) is secondary to the patient having high probability of clinically significant/life threatening deterioration in the patient's condition which required my urgent intervention. Impression: 1. Acute abdominal pain 2. NSAID induced gastritis Dispo: Discharge home This note was generated with [employer] dictation software. It may contain incorrect words, spelling, and punctuation that were not noted in review of the chart prior to signing. Lab Data Labs: Laboratory Results - last 24 hr 06/22/24 23:28 WBC 11.5 H RBC 4.85 Hgb 13.0 Hct 40.6 MCV 83.7 MCH 26.8 L MCHC 32.0 RDW Std Deviation 41.2 RDW Coeff of Floridalma 13.5 Plt Count 404 MPV 10.1 Immature Gran % (Auto) 0.300 Neut % (Auto) 67.3 Lymph % (Auto) 25.2 Miner % (Auto) 6.1 Eos % (Auto) 0.7 Baso % (Auto) 0.4 Absolute Neuts (auto) 7.8 H Absolute Lymphs (auto) 2.90 Nucleated RBC % 0 Discharge Plan Triage Chief Complaint: Abd Pain ED Provider: Xavier Maloney Dx/Rx/DC Orders Instructions: ED Abdominal Pain Unkn Cause Fem Prescriptions: No Action mecobalamin (vitamin B12) 1,000 mcg tablet,chewable 2,000 mcg PO DAILY metoprolol succinate 50 mg tablet extended release 24 hr 50 mg PO QDAY Qty: 90 3RF L norgest/e.estradiol-e.estrad [Jaimiess] 0.15 mg-30 mcg (84)/10 mcg (7) tablets,dose pack,3 month See Rx Instructions PO .COMPLEX Rx Instructions: take 1 tablet daily following the order on blister card(s) PO ondansetron 4 mg tablet,disintegrating 4 mg PO Q8H PRN (Reason: nausea and vomiting) Zyrtec 10 mg capsule 10 mg PO QDAY PRN (Reason: allergy symptoms) sertraline 100 mg tablet 100 mg PO QDAY Qty: 30 1RF Qelbree 200 mg capsule,extended release 24hr 400 mg PO QDAY Qty: 60 1RF azelastine 137 mcg (0.1 %) spray,non-aerosol 2 spray intranasal BID Qty: 30 0RF Rx Instructions: administer into each nostril trazodone 50 mg tablet 50 mg PO QHS PRN (Reason: insomnia) Qty: 90 1RF Primary Care Provider: Karthik Lino Referrals: Friend,Pastor, DO [Med Staff - Active Staff] - Activity Restrictions/Additional Instructions: Thank you for trusting us with your care today! Your labs images were consistent with [] Please take Tylenol (2 pills, 650 mg), ibuprofen (2 pills, 400 mg) every 6 hours as needed for pain and fever control. Please try to take medicines with food. Please continue to take already prescribed omeprazole. If you do not currently have a prescription you can obtain omeprazole [id number] (i.e. Prilosec OTC). In addition to this please take Carafate as needed and as prescribed. Please return to the emergency department if your symptoms change or worsen. Please follow with your primary care physician for further outpatient evaluation and management. Print Language: Greenlandic
[2024-06-22 23:33] LABS: Absolute Neutrophil Count 7.8 X10^3/uL (2.0-7.7); Basophil# 0.05 X10^3/uL; Basophil% 0.4 % (0-1); Eosinophil# 0.08 X10^3/uL; Eosinophils% 0.7 % (0-5); Hematocrit 40.6 % (37-47); Lymphocyte % 25.2 % (19-41); Mean Corpuscular Hgb 26.8 pg (27.0-32.0); Mean Corpuscular Volume 83.7 fL (81-99); Mean Platelet Vol. 10.1 fl (6.2-12.0); Monocyte% 6.1 % (0-10); NRBC Flagged by Analyzer 0 % (0-5); Neutrophil # 7.75 X10^3/uL (2.7-7.7); Neutrophil % 67.3 % (47-70); Platelet Count 404 K/mm3 (150-450); RBC Distribution Width CV 13.5 % (11.6-14.6); RBC Distribution Width SD 41.2 fl (35.1-43.9); Red Blood Count 4.85 M/mm3 (4.2-5.4); White Blood Count 11.5 K/mm3 (4.4-11.0)
[2024-06-22] MEDS: 0.9% Normal Saline (1000mL) 1,000 ML 999 ML IV (23:34)
[2024-06-22] MEDS: Ondansetron 4 MG/2 ML Vial IV (23:35)
[2024-06-22] MEDS: Famotidine 200 MG/20 ML MDV 20 MG in 0.9% Normal Saline (Pres. free 8 ML 300 MG IV (23:36)
[2024-06-22] MEDS: Mag Hydrox/Al Hydrox/Simeth 30 ML UDC PO (23:37)
[2024-06-22] MEDS: Lidocaine 2% Viscous15 ML UDC 15 ML PO (23:37)
[2024-06-22 23:50] LABS: Internal QC Validated? YES +Cl - CLEAR BKGD; Pregnancy, Urine Negative Negative
[2024-06-22 23:56] LABS: Lipase 14 U/L (13-75)
[2024-06-23 00:09] LABS: ALB/GLOB Ratio 1.4 RATIO (0.9-2.4); AST(SGOT) 23 U/L (<=31); Alanine Aminotransfer ALT/SGPT 14 U/L (<=34); Albumin, Serum 4.2 g/dL (3.5-5.0); Alkaline Phosphatase 123 U/L (35-104); Anion Gap 15 (5-15); BUN 8 mg/dL (4-19); BUN/Creat Ratio 10.8 RATIO (10-20); Calcium,Total 9.3 mg/dL (7.6-11.0); Carbon Dioxide 20.4 mmol/L (21.0-32.0); Chloride 101 mmol/L (98-108); Creatinine, Serum 0.76 mg/dL (0.70-1.20); EST Glomerular Filtration Rate 114 (>60); Estimated Creatinine Clearance 132.52 ml/min (50-250); Glucose 85 mg/dL (70-99); Potassium 3.8 mmol/L (3.3-5.1); Protein, Total 7.2 g/dL (5.9-8.4); Sodium Level 137 mmol/L (133-145); Total Bilirubin 0.22 mg/dL (0.00-1.30)
[2024-06-23 00:40] VITALS: BP 158/113; PULSE 92; RESP 16; TEMP 36.8; O2SAT 100
== END 2024-06-23 00:43 | disposition home or self-care (01) ==
PROVIDERS: Emergency Provider Emergency Medicine; PCP Family Medicine; Visit Provider Emergency Medicine
DX: R10.9 Unspecified abdominal pain (principal); F41.9 Anxiety disorder, unspecified; F90.9 Attention-deficit hyperactivity disorder, unspecified type; K29.70 Gastritis, unspecified, without bleeding; Z79.899 Other long term (current) drug therapy
CPT/HCPCS: 80053; 81025; 83690; 85025; 96365; 99282; A4216; J2405

== ENCOUNTER → 2024-06-24 | Outpatient (CLI) | payer OTHER, SELFPAY ==
[2024-06-24 09:41] LABS: Absolute Lymphocyte Count 1.79 X10^3/uL (0.83-4.51); Absolute Neutrophil Count 5.5 X10^3/uL (2.0-7.7); Basophil# 0.06 X10^3/uL; Basophil% 0.7 % (0-1); Eosinophils% 1.2 % (0-5); Hematocrit 37.2 % (37-47); Hemoglobin 11.8 g/dL (12.0-15.0); Lymphocyte # 1.79 X10^3/ul (0.83-4.51); Lymphocyte % 22.3 % (19-41); Mean Corp Hgb Conc 31.7 g/dL (32-36); Mean Corpuscular Hgb 26.4 pg (27.0-32.0); Mean Corpuscular Volume 83.2 fL (81-99); Mean Platelet Vol. 9.6 fl (6.2-12.0); Monocyte# 0.52 X10^3/uL; Monocyte% 6.5 % (0-10); NRBC Flagged by Analyzer 0 % (0-5); Neutrophil # 5.53 X10^3/uL (2.7-7.7); Neutrophil % 69.1 % (47-70); Platelet Count 350 K/mm3 (150-450); RBC Distribution Width CV 13.5 % (11.6-14.6); RBC Distribution Width SD 41.3 fl (35.1-43.9); Red Blood Count 4.47 M/mm3 (4.2-5.4)
[2024-06-24 11:02] LABS: ALB/GLOB Ratio 1.4 RATIO (0.9-2.4); AST(SGOT) 20 U/L (<=31); Alanine Aminotransfer ALT/SGPT 14 U/L (<=34); Alkaline Phosphatase 105 U/L (35-104); Anion Gap 11 (5-15); BUN 10 mg/dL (4-19); BUN/Creat Ratio 13.1 RATIO (10-20); Calcium,Total 8.9 mg/dL (7.6-11.0); Carbon Dioxide 23.7 mmol/L (21.0-32.0); Chloride 101 mmol/L (98-108); Creatinine, Serum 0.75 mg/dL (0.70-1.20); EST Glomerular Filtration Rate 115 (>60); Globulin 2.8 g/dL (2.2-4.2); Glucose 88 mg/dL (70-99); Potassium 4.2 mmol/L (3.3-5.1); Protein, Total 6.8 g/dL (5.9-8.4); Sodium Level 135 mmol/L (133-145)
== END | disposition home or self-care (01) ==
LOC: LAB 09:20
PROVIDERS: PCP Family Medicine
DX: K29.60 Other gastritis without bleeding (principal); T39.395A Adverse effect of other nonsteroidal anti-inflammatory drugs [NSAID], initial encounter
CPT/HCPCS: 36415; 80053; 85025

== ENCOUNTER → 2024-06-25 | Outpatient (CLI) | payer OTHER, SELFPAY | END | disposition home or self-care (01) | LOC: LABSPEC 12:51 | PROVIDERS: PCP Family Medicine | DX: K29.60 Other gastritis without bleeding (principal); T39.395A Adverse effect of other nonsteroidal anti-inflammatory drugs [NSAID], initial encounter | CPT/HCPCS: 82274 ==

== ENCOUNTER → 2024-06-26 | Outpatient (CLI) | payer OTHER, SELFPAY ==
--- NOTE | 2024-06-26 10:25 | US_ITS ---
PROCEDURE: GALLBLADDER REASON FOR EXAM: EPIGASTRIC AND RUQ ABDOMINAL PAIN COMPARISON: None FINDINGS: Liver: Grossly normal size and echotexture. Gallbladder: No stones, wall thickening or tenderness.. Mildly distended gallbladder lumen. Sludge is seen within the gallbladder lumen. Common bile duct: Normal measuring . Pancreas: Visualized portions are sonographically unremarkable. Visualized portions of the right kidney are unremarkable. No right upper quadrant ascites. US/Gallbladder IMPRESSION: Mild distention of the gallbladder with sludge in the gallbladder lumen. No gallstones are seen. Reading Location: [id number]
== END | disposition home or self-care (01) ==
PROVIDERS: PCP Family Medicine
DX: K29.60 Other gastritis without bleeding (principal); K21.9 Gastro-esophageal reflux disease without esophagitis; T39.395A Adverse effect of other nonsteroidal anti-inflammatory drugs [NSAID], initial encounter
CPT/HCPCS: 76705

== ENCOUNTER 2024-06-27 10:44 | Emergency (ER) | payer OTHER, SELFPAY ==
[2024-06-27 10:45] VITALS: BP 172/98; PULSE 101; RESP 16; TEMP 36.4; O2SAT 100; BMI 41.1
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
[2024-06-27] MEDS: Ondansetron 4 MG/2 ML Vial IV (12:12)
[2024-06-27] MEDS: 0.9% Normal Saline (1000mL) 1,000 ML 999 ML IV (12:12)
[2024-06-27] MEDS: Famotidine 200 MG/20 ML MDV 20 MG in 0.9% Normal Saline (Pres. free 8 ML 300 MG IV (12:12)
[2024-06-27] MEDS: Morphine 4 MG/ML Syringe IV (12:12)
[2024-06-27 12:17] LABS: Absolute Neutrophil Count 4.9 X10^3/uL (2.0-7.7); Basophil# 0.05 X10^3/uL; Basophil% 0.7 % (0-1); Eosinophil# 0.07 X10^3/uL; Hematocrit 43.2 % (37-47); Hemoglobin 13.9 g/dL (12.0-15.0); Lymphocyte % 21.3 % (19-41); Mean Corp Hgb Conc 32.2 g/dL (32-36); Mean Corpuscular Hgb 27.1 pg (27.0-32.0); Mean Corpuscular Volume 84.2 fL (81-99); Mean Platelet Vol. 10.5 fl (6.2-12.0); Monocyte# 0.49 X10^3/uL; NRBC Flagged by Analyzer 0 % (0-5); Neutrophil # 4.92 X10^3/uL (2.7-7.7); Neutrophil % 69.7 % (47-70); Platelet Count 386 K/mm3 (150-450); RBC Distribution Width CV 13.3 % (11.6-14.6); RBC Distribution Width SD 41.3 fl (35.1-43.9); Red Blood Count 5.13 M/mm3 (4.2-5.4); White Blood Count 7.1 K/mm3 (4.4-11.0)
[2024-06-27 12:44] VITALS: BP 141/93; PULSE 80; RESP 16; O2SAT 98
[2024-06-27 12:59] LABS: AST(SGOT) 34 U/L (<=31); Alanine Aminotransfer ALT/SGPT 24 U/L (<=34); Albumin, Serum 4.5 g/dL (3.5-5.0); Alkaline Phosphatase 108 U/L (35-104); Bilirubin, Direct 0.13 mg/dL (0.00-0.30); Globulin 3.2 g/dL (2.2-4.2); Lipase 14 U/L (13-75); Protein, Total 7.6 g/dL (5.9-8.4); Total Bilirubin 0.25 mg/dL (0.00-1.30)
[2024-06-27 14:27] VITALS: BP 141/93; PULSE 80; RESP 16; TEMP 36.8; O2SAT 98
== END 2024-06-27 14:27 | disposition home or self-care (01) ==
PROVIDERS: Emergency Provider Surgery; PCP Family Medicine; Visit Provider Surgery
DX: K29.70 Gastritis, unspecified, without bleeding (principal)
CPT/HCPCS: 80076; 83690; 85025; 96365; 96375; 96376; 99283; A4216; J2405

== ENCOUNTER 2024-06-30 11:18 | Emergency (ER) | payer OTHER, SELFPAY ==
[2024-06-30 11:19] VITALS: BP 165/108; PULSE 108; RESP 16; TEMP 36.4; O2SAT 100
[2024-06-30 11:42] VITALS: BMI 40.9
--- NOTE | 2024-06-30 12:12 | EDS_ITS ---
HPI History of Present Illness Chief Complaint: Abd Pain [facility] Medical History Postural orthostatic tachycardia syndrome [POTS] Anxiety Home Medications ?Medication ?Instructions ?Recorded ?Last Taken ?Type mecobalamin (vitamin B12) 1,000 2,000 mcg PO DAILY 12/07 Unknown History mcg chewable tablet azelastine 137 mcg (0.1 %) nasal 2 spray intranasal BI D #30 mL 02/13/24 Unknown Rx spray metoprolol succinate 50 mg 50 mg PO QDAY #90 tabs 02/14 06/09 Unknown Rx tablet,extended release 24 hr L norgest/E estradiol-E estrad See Rx Instructions PO .COMPLEX 03/10/24 Unknown History 0.15 mg-30 mcg (84)/10 mcg(7) tabs,3mos (Jaimiess) cetirizine 10 mg capsule (Zyrtec) 10 mg PO QDAY PRN al lergy symptoms 03/10/24 Unknown History ondansetron 4 mg disintegrating 4 mg PO Q8H PRN nausea and vomiting 03/10/24 Unknown History tablet sertraline 100 mg tablet 100 mg PO QDAY #30 tabs 04/17 05/10 Unknown Rx viloxazine 200 mg capsule,extended 400 mg (2 x 200 mg) PO QDAY #60 05/06/24 Unknown Rx release 24 hr (Qelbree) caps trazodone 50 mg tablet 50 mg PO QHS PRN insomnia #9 0 tabs 05/22/24 Unknown Rx sucralfate 1 gram tablet (Carafate) 1 g PO BID #14 tab s 06/23/24 Unknown Rx vonoprazan 10 mg tablet 10 mg PO QDAY #30 tabs 06/24 Unknown Rx famotidine 20 mg tablet (Pepcid) 20 mg PO DAILY 14 day s #14 tabs 06/27/24 Unknown Rx Allergy/AdvReac Type Severity Reaction Status Date / Time cyclobenzaprine Allergy Mild Rash Verified 06/30/24 11:23 Family History Other Alcoholism Arthritis Cancer Diabetes Hypertension Obesity Seizures Social History household members: significant other Smoking Status: Never smoker alcohol intake: current alcohol intake frequency: holidays/special occasions only substance use type: does not use caffeine: Yes (x2 week) EXAM Physical Exam Const Vital Signs: 06/30/24 11:19 06/30/24 13:19 06/30/24 14:56 Temperature 97.6 F L Temperature Source Temporal Pulse Rate 108 H Respiratory Rate 16 Blood Pressure 165/108 H 152/101 H 160/95 H Blood Pressure Mean 127 118 116 Pulse Ox 100 99 99 Oxygen Delivery Method Room Air Room Air Room Air [facility] Medical decision making narrative: HISTORY OF PRESENT ILLNESS: 23-year-old female presents with abdominal pain. Notes symptoms ongoing for 1 week. Notes nausea but no vomiting or diarrhea. REVIEW OF SYSTEMS: Pertinent positives: Abdominal pain, nausea Pertinent negatives: [] PHYSICAL EXAM: Nursing triage notes reviewed, Vital signs reviewed Constitutional: please see mdm HENT: MMM Eyes: Pupils equal round and reactive to light, Extraocular muscles intact Neck: No stridor, no JVD, full neck ROM Lungs: Clear to auscultation, No wheezing or rales. No increased work of breathing, no conversational dyspnea, no accessory muscle use, no nasal flaring. No respiratory distress noted Heart: Regular rate and rhythm, No murmurs, No rubs and No gallops, 2+ distal pulses (radial, femoral, posterior tibial) in all extremities Abdomen: Soft, there is no tenderness, rigidity, rebound or guarding, no obvious peritoneal signs, no palpable pulsatile abdominal masses, no auscultated abdominal bruit : No CVAT Extremities: No edema Neuro: No new focal neurological deficits, cranial nerves II through XII intact, 5/5 strength in all present extremities. Intact sensation to light touch in all present extremities, 2+ reflexes bilateral patella tendons. Skin: No rash or lesions noted MEDICAL DECISION MAKING: Chief Complaint: Abdominal pain External records reviewed: Reviewed prior imaging studies: Reviewed CT scan of the abdomen pelvis from November 2023 which showed no evidence of perforation, no pelvic free fluid, normal appendix. Reviewed gallbladder ultrasound from 06/26/2024 which showed mild distention of the gallbladder with sludge in the gallbladder lumen. No gallstones were seen Reviewed outpatient gastroenterology note from 06/24/2024 was diagnosed with GERD, esophagitis and NSAID induced gastritis Factors affecting care: Gallbladder sludge Social determinants of health: none History obtained from others: none Consults: General Surgery (Dr. Rand) MDM Narrative: The patient was initially hypertensive the blood pressure 160/108, tachycardic with a initial pulse of 108, otherwise afebrile and nontoxic-appearing. Exam I considered the following differential diagnosis: AAA, small bowel obstruction, abdominal perforation, appendicitis, pancreatitis, hepatobiliary pathology (acute cholecystitis), mesenteric ischemia, pathology (ie nephrolithiasis, pyelonephritis). ALL IMAGES (IF OBTAINED) HAVE BEEN PERSONALLY REVIEWED AND INTERPRETED BY MYSELF. Urine test was negative on 06/22/2024 CBC without leukocytosis, severe anemia, no thrombocytopenia. BMP without evidence of significant electrolyte abnormalities, no anion gap, no acute kidney injury. LFTs with slight elevation in AST and ALT however bilirubin and alk phos remain normal Lipase is wnl indicating no pancreatic inflammation. CT, ultrasound pending General surgery consultation recommendations pending The patient and/or family, caregivers express understanding. The patient and/or family, caregivers agrees with the plan. Shared decision making: I will have a discussion with the patient and or visitors regarding risk/benefits of further testing or admission. They will be made aware of of the risk/benefits inherent in this decision they will be given the opportunity to voice understanding. Total critical care time today provided was at least 0 minutes. This excludes separately billable procedures. Critical care time (if documented) is secondary to the patient having high probability of clinically significant/life threatening deterioration in the patient's condition which required my urgent intervention. Impression: 1. Abdominal pain 2. History of gallbladder sludge Dispo: Signed out to afternoon/evening physician pending CT scan right upper quadrant ultrasound This note was generated with Spokeable dictation software. It may contain incorrect words, spelling, and punctuation that were not noted in review of the chart prior to signing. Lab Data Labs: Laboratory Results - last 24 hr 06/30/24 13:13 WBC 6.2 RBC 4.91 Hgb 13.3 Hct 41.0 MCV 83.5 MCH 27.1 MCHC 32.4 RDW Std Deviation 40.9 RDW Coeff of Floridalma 13.5 Plt Count 316 MPV 10.1 Immature Gran % (Auto) 0.200 Neut % (Auto) 67.5 Lymph % (Auto) 25.2 [place] % (Auto) 5.9 Eos % (Auto) 0.5 Baso % (Auto) 0.7 Absolute Neuts (auto) 4.2 Absolute Lymphs (auto) 1.55 Nucleated RBC % 0 Sodium 138 Potassium 4.6 Chloride 102 Carbon Dioxide 21.9 Anion Gap 14 BUN 7 Creatinine 0.76 Estim Creat Clear Calc 129.52 Est GFR (MDRD) Non-Af 114 BUN/Creatinine Ratio 9.4 L Glucose 89 Calcium 9.5 Total Bilirubin 0.23 Direct Bilirubin < 0.08 AST 48 H ALT 40 H Alkaline Phosphatase 99 Total Protein 7.8 Albumin 4.5 Globulin 3.3 Lipase 14 Discharge Plan Triage Chief Complaint: Abd Pain ED Provider: Xavier Maloney Dx/Rx/DC Orders Prescriptions: No Action mecobalamin (vitamin B12) 1,000 mcg tablet,chewable 2,000 mcg PO DAILY metoprolol succinate 50 mg tablet extended release 24 hr 50 mg PO QDAY Qty: 90 3RF L norgest/e.estradiol-e.estrad [Jaimiess] 0.15 mg-30 mcg (84)/10 mcg (7) tablets,dose pack,3 month See Rx Instructions PO .COMPLEX Rx Instructions: take 1 tablet daily following the order on blister card(s) PO ondansetron 4 mg tablet,disintegrating 4 mg PO Q8H PRN (Reason: nausea and vomiting) Zyrtec 10 mg capsule 10 mg PO QDAY PRN (Reason: allergy symptoms) sertraline 100 mg tablet 100 mg PO QDAY Qty: 30 1RF Qelbree 200 mg capsule,extended release 24hr 400 mg PO QDAY Qty: 60 1RF vonoprazan 10 mg tablet 10 mg PO QDAY Qty: 30 2RF famotidine [Pepcid] 20 mg tablet 20 mg PO DAILY 14 Days Qty: 14 0RF azelastine 137 mcg (0.1 %) spray,non-aerosol 2 spray intranasal BID Qty: 30 0RF Rx Instructions: administer into each nostril sucralfate [Carafate] 1 gram tablet 1 g PO BID Qty: 14 0RF trazodone 50 mg tablet 50 mg PO QHS PRN (Reason: insomnia) Qty: 90 1RF Primary Care Provider: Karthik Lino Referrals: Karthik Lino MD [Primary Care Provider] - Print Language: Ethiopian
[2024-06-30] MEDS: 0.9% Normal Saline (1000mL) 1,000 ML 999 ML IV (13:10)
[2024-06-30] MEDS: Ondansetron 4 MG/2 ML Vial IV (13:10)
[2024-06-30] MEDS: Ketorolac 15 MG/ML Vial IV (13:10)
[2024-06-30 13:19] VITALS: BP 152/101; O2SAT 99
[2024-06-30 13:20] LABS: Absolute Lymphocyte Count 1.55 X10^3/uL (0.83-4.51); Absolute Neutrophil Count 4.2 X10^3/uL (2.0-7.7); Basophil# 0.04 X10^3/uL; Basophil% 0.7 % (0-1); Eosinophil# 0.03 X10^3/uL; Eosinophils% 0.5 % (0-5); Hemoglobin 13.3 g/dL (12.0-15.0); Lymphocyte # 1.55 X10^3/ul (0.83-4.51); Lymphocyte % 25.2 % (19-41); Mean Corp Hgb Conc 32.4 g/dL (32-36); Mean Corpuscular Hgb 27.1 pg (27.0-32.0); Mean Corpuscular Volume 83.5 fL (81-99); Mean Platelet Vol. 10.1 fl (6.2-12.0); Monocyte# 0.36 X10^3/uL; Monocyte% 5.9 % (0-10); NRBC Flagged by Analyzer 0 % (0-5); Neutrophil # 4.16 X10^3/uL (2.7-7.7); Neutrophil % 67.5 % (47-70); Platelet Count 316 K/mm3 (150-450); RBC Distribution Width CV 13.5 % (11.6-14.6); RBC Distribution Width SD 40.9 fl (35.1-43.9); Red Blood Count 4.91 M/mm3 (4.2-5.4); White Blood Count 6.2 K/mm3 (4.4-11.0)
[2024-06-30 14:01] LABS: AST(SGOT) 48 U/L (<=31); Alanine Aminotransfer ALT/SGPT 40 U/L (<=34); Albumin, Serum 4.5 g/dL (3.5-5.0); Alkaline Phosphatase 99 U/L (35-104); Anion Gap 14 (5-15); BUN 7 mg/dL (4-19); BUN/Creat Ratio 9.4 RATIO (10-20); Bilirubin, Direct < 0.08 mg/dL (0.00-0.30); Calcium,Total 9.5 mg/dL (7.6-11.0); Carbon Dioxide 21.9 mmol/L (21.0-32.0); Chloride 102 mmol/L (98-108); Creatinine, Serum 0.76 mg/dL (0.70-1.20); EST Glomerular Filtration Rate 114 (>60); Estimated Creatinine Clearance 129.52 ml/min (50-250); Globulin 3.3 g/dL (2.2-4.2); Glucose 89 mg/dL (70-99); Lipase 14 U/L (13-75); Potassium 4.6 mmol/L (3.3-5.1); Protein, Total 7.8 g/dL (5.9-8.4); Sodium Level 138 mmol/L (133-145); Total Bilirubin 0.23 mg/dL (0.00-1.30)
--- NOTE | 2024-06-30 14:53 | US_ITS ---
PROCEDURE: GALLBLADDER (USGB), 06/30/2024 REASON FOR EXAM: RUQ TTP COMPARISON: CT of same date FINDINGS: Liver: Unremarkable. 16.5 cm in length. Gallbladder: No visualized stones, sludge, wall thickening or pericholecystic fluid. Reportedly, sonographic Chamberlain's was negative. Biliary tree: Unremarkable. CBD measures 5 mm. Pancreas: Largely obscured by shadowing bowel gas Right kidney: Unremarkable. 10.9 cm in length. Other: No visualized free fluid. US/Gallbladder IMPRESSION: 1. No visualized cholelithiasis or evidence of acute cholecystitis. No biliary dilatation. 2. Additional description as above. Reading Location: [id number]
--- NOTE | 2024-06-30 14:53 | CT_ITS ---
PROCEDURE: ABDOMEN/PELVIS W IV CONT ONLY REASON FOR EXAM: RUQ ABDOMINAL PAIN TECHNIQUE: CT imaging of the abdomen and pelvis with intravenous contrast. Coronal and sagittal reformatted images. IV CONTRAST: 98 cc Isovue-300 COMPARISON: 11/18/2023 FINDINGS: The lung bases are clear. The liver, gallbladder, adrenal glands, kidneys, pancreas and spleen appear within limits. Abdominal aorta appears within limits. No adenopathy identified. No bowel dilation or free air. No evidence of bowel wall thickening. Normal caliber appendix without secondary signs. The bladder appears within limits. The ovaries and uterus appear within limits. Trace pelvic free fluid suggested. Visualized osseous structures are within limits. CT/Abdomen/Pelvis W IV Cont ONLY IMPRESSION: No evidence of acute process. One or more dose reduction techniques were used (e.g., Automated exposure contr ol, adjustment of the mA and/or kV according to patient size, use of iterative reconstruction technique). Reading Location: [id number]
[2024-06-30 14:56] VITALS: BP 160/95; O2SAT 99
[2024-06-30] MEDS: Pantoprazole Sodium 40 MG in 0.9% Normal Saline (100mL MB+) 100 ML 330 MG IV (16:42)
[2024-06-30] MEDS: Sucralfate 1 GM Tablet PO (16:46)
[2024-06-30 16:56] VITALS: BP 127/89; O2SAT 98
--- NOTE | 2024-06-30 17:17 | CON.PCM.SX_ITS ---
Assessment & Plan Assessment/Plan (1) Gastroesophageal reflux: QUALIFIERS: Esophagitis presence: without esophagitis Qualified Code(s): K21.9 - Gastro-esophageal reflux disease without esophagitis (2) LUQ pain: (3) Epigastric abdominal pain: (4) RUQ pain: PLAN: Plan Discussed with patient that her history is not consistent with gallbladder disease as her pain is fairly constant currently is worse immediately after eating or drinking patient is currently not on a PPI as she is waiting for her mail-in order. Patient was on omeprazole which she stopped 5-6 months ago it did not help. Patient is only on Pepcid 20 mg p.o. daily and Carafate. Patient is currently seeing GI. No plans for any acute surgical intervention will defer to GI. Eda Rand M.D. Pager: [phone] [facility] [address] [place] [address], [facility], [address] [place] [id number] Office: [phone] HPI Consult Data Date of Consult: 06/30/24 HPI Narrative Reason for Consultation: Right upper quadrant epigastric pain, history of gallbladder sludge HPI Narrative: ACE ROSAS, is a 23 F who presents to the ER due to epigastric, left upper quadrant, right upper quadrant abdominal pain. Patient states it is worse with eating or even drinking water. Patient has had a previous EGD at [facility] by Dr. Bai in January 2024 did stop her omeprazole 5 to 6 months ago as she states it was not helping. Patient has been seen recently by GI at [facility] currently on Pepcid 20 mg p.o. daily as well as Carafate patient was also sent in a prescription for vonoprazon which she has not received by mail yet has not went to a mail-in pharmacy but she states it was not denied. Patient does have some regurgitation of food denies any burning up her esophagus currently on a gastroparesis diet per GI. Patient had an ultrasound of her gallbladder 06/26 showed mild distention with some gallbladder sludge otherwise no pericholecystic fluid or wall thickening or tenderness, ultrasound from today shows no cholelithiasis or sludge or pericholecystic fluid and negative sonographic Chamberlain sign. [facility] Medical History Postural orthostatic tachycardia syndrome [POTS] Anxiety Home Medications ?Medication ?Instructions ?Recorded ?Last Taken ?Type mecobalamin (vitamin B12) 1,000 2,000 mcg PO DAILY 12/07 Unknown History mcg chewable tablet azelastine 137 mcg (0.1 %) nasal 2 spray intranasal BI D #30 mL 02/13/24 Unknown Rx spray metoprolol succinate 50 mg 50 mg PO QDAY #90 tabs 02/14 06/09 Unknown Rx tablet,extended release 24 hr L norgest/E estradiol-E estrad See Rx Instructions PO .COMPLEX 03/10/24 Unknown History 0.15 mg-30 mcg (84)/10 mcg(7) tabs,3mos (Jaimiess) cetirizine 10 mg capsule (Zyrtec) 10 mg PO QDAY PRN al lergy symptoms 03/10/24 Unknown History ondansetron 4 mg disintegrating 4 mg PO Q8H PRN nausea and vomiting 03/10/24 Unknown History tablet sertraline 100 mg tablet 100 mg PO QDAY #30 tabs 04/17 05/10 Unknown Rx viloxazine 200 mg capsule,extended 400 mg (2 x 200 mg) PO QDAY #60 05/06/24 Unknown Rx release 24 hr (Qelbree) caps trazodone 50 mg tablet 50 mg PO QHS PRN insomnia #9 0 tabs 05/22/24 Unknown Rx sucralfate 1 gram tablet (Carafate) 1 g PO BID #14 tab s 06/23/24 Unknown Rx vonoprazan 10 mg tablet 10 mg PO QDAY #30 tabs 06/24 Unknown Rx famotidine 20 mg tablet (Pepcid) 20 mg PO DAILY 14 day s #14 tabs 06/27/24 Unknown Rx famotidine 20 mg tablet (Pepcid) 20 mg PO BID #60 tabs 06/30/24 Unknown Rx Allergy/AdvReac Type Severity Reaction Status Date / Time cyclobenzaprine Allergy Mild Rash Verified 06/30/24 11:23 Family History Other Alcoholism Arthritis Cancer Diabetes Hypertension Obesity Seizures Social History household members: significant other Smoking Status: Never smoker alcohol intake: current alcohol intake frequency: holidays/special occasions only substance use type: does not use caffeine: Yes (x2 week) ROS Constitutional Constitutional: Reports anorexia ENT HEENT: Denies dysphagia Cardiovascular Cardiovascular: Denies chest pain Respiratory/Chest Respiratory/Chest: Denies cough Gastrointestinal Gastrointestinal: Reports abdominal pain and nausea Genitourinary Genitourinary: Denies dysuria Integumentary Integumentary: Denies jaundice Neurologic Neurologic: Denies focal weakness Endocrine Endocrinology: Denies palpitations Hematologic/Lymphatic Hematologic/Lymphatic: Denies easy bleeding Physical Exam Const alert, oriented x3 and no apparent distress HEENT normocephalic and head/scalp atraumatic Resp normal respiratory effort Cardio regular rate GI soft to palpation; Negative for non-distended Palpation: tender epigastric, LUQ and RUQ; Negative for guarding Extremity no clubbing, cyanosis or edema Skin no rashes or lesions noted Neuro CN's II-XII intact bilaterally Psych mental status grossly normal Lab / Micro Data 06/30/24 13:13 06/30/24 13:13 Labs: Laboratory Results - last 24 hr 06/30/24 13:13: WBC 6.2, RBC 4.91, Hgb 13.3, Hct 41.0, MCV 83.5, MCH 27.1, MCHC 32.4, RDW Std Deviation 40.9, RDW Coeff of Floridalma 13.5, Plt Count 316, MPV 10.1, Immature Gran % (Auto) 0.200, Neut % (Auto) 67.5, Lymph % (Auto) 25.2, [place] % (Auto) 5.9, Eos % (Auto) 0.5, Baso % (Auto) 0.7, Absolute Neuts (auto) 4.2, Absolute Lymphs (auto) 1.55, Nucleated RBC % 0, Sodium 138, Potassium 4.6, Chloride 102, Carbon Dioxide 21.9, Anion Gap 14, BUN 7, Creatinine 0.76, Estim Creat Clear Calc 129.52, Est GFR (MDRD) Non-Af 114, BUN/Creatinine Ratio 9.4 L, Glucose 89, Calcium 9.5, Total Bilirubin 0.23, Direct Bilirubin < 0.08, AST 48 H , ALT 40 H, Alkaline Phosphatase 99, Total Protein 7.8, Albumin 4.5, Globulin 3.3, Lipase 14 Imaging Radiology Impression Gallbladder Ultrasound 06/30/24 14:53 IMPRESSION: 1. No visualized cholelithiasis or evidence of acute cholecystitis. No biliary dilatation. 2. Additional description as above. Reading Location: [id number] Charges/Coding Visit Charges Office Visits / Consults: 73171 ED Visit; Moderate Severity
[2024-06-30 18:58] VITALS: BP 142/83; O2SAT 99
[2024-06-30 20:04] VITALS: BP 132/81; PULSE 83; RESP 16; TEMP 36.6; O2SAT 99
== END 2024-06-30 20:07 | disposition home or self-care (01) ==
PROVIDERS: Emergency Medicine; Emergency Provider Emergency Medicine; PCP Family Medicine; Visit Provider Emergency Medicine
DX: K21.9 Gastro-esophageal reflux disease without esophagitis (principal); R10.12 Left upper quadrant pain
CPT/HCPCS: 74177; 76705; 80048; 80076; 83690; 85025; 96365; 96375; 96376; 99283; 99284; Q9967; A4216; J2405

== ENCOUNTER → 2024-07-02 | Outpatient (CLI) | payer OTHER, SELFPAY | END | disposition home or self-care (01) | LOC: MTLAB 11:33 | PROVIDERS: PCP Family Medicine; Referring Provider Family Medicine; Visit Provider Family Medicine | DX: R79.89 Other specified abnormal findings of blood chemistry (principal) | CPT/HCPCS: 36415; 84443 ==

== ENCOUNTER 2024-07-12 13:37 | Emergency (ER) | payer OTHER, SELFPAY ==
[2024-07-12 13:37] VITALS: BP 151/105; PULSE 110; RESP 18; TEMP 37.1; O2SAT 100; BMI 39.3
[2024-07-12] MEDS: 0.9% Normal Saline (1000mL) 1,000 ML 999 ML IV (14:07)
[2024-07-12] MEDS: Ondansetron 4 MG/2 ML Vial IV (14:07)
--- NOTE | 2024-07-12 14:11 | EX.ED.DYSGE1 ---
HPI <MATHIEU Mar - Last Filed: 07/12/24 15:34> History of Present Illness Chief Complaint: Abd Pain Narrative Narrative: Patient is a 23-year-old female with history of ADHD, anxiety, depression, GERD who presents to the [facility] part with ongoing right upper quadrant pain. Patient has been seen for this before. On June 30, [address] scan, as well as ultrasound that was negative. Patient states that over the last 2 days has been feeling more dehydrated, having nausea and vomiting. Patient denies any fever or chills. Complains of decreased urine output, has not had a bowel movement 2 to 3 days. [facility] <MATHIEU Mar - Last Filed: 07/12/24 15:34> [facility] Medical History Postural orthostatic tachycardia syndrome [POTS] Anxiety Home Medications ?Medication ?Instructions ?Recorded ?Last Taken ?Type mecobalamin (vitamin B12) 1,000 2,000 mcg PO DAILY 05/24/23 Unknown History mcg chewable tablet azelastine 137 mcg (0.1 %) nasal 2 spray intranasal BID #30 mL 02/13/24 Unknown Rx spray metoprolol succinate 50 mg 50 mg PO QDAY #90 tabs 02/26/24 Unknown Rx tablet,extended release 24 hr L norgest/E estradiol-E estrad See Rx Instructions PO .COMPLEX 03/10/24 Unknown History 0.15 mg-30 mcg (84)/10 mcg(7) tabs,3mos (Jaimiess) cetirizine 10 mg capsule (Zyrtec) 10 mg PO QDAY PRN allergy symptoms 03/10/24 Unknown History ondansetron 4 mg disintegrating 4 mg PO Q8H PRN nausea and vomiting 03/10/24 Unknown History tablet sertraline 100 mg tablet 100 mg PO QDAY #30 tabs 05/06/24 Unknown Rx viloxazine 200 mg capsule,extended 400 mg (2 x 200 mg) PO QDAY #60 05/06/24 Unknown Rx release 24 hr (Qelbree) caps trazodone 50 mg tablet 50 mg PO QHS PRN insomnia #90 tabs 05/22/24 Unknown Rx sucralfate 1 gram tablet (Carafate) 1 g PO BID #14 tabs 06/23/24 Unknown Rx vonoprazan 10 mg tablet 10 mg PO QDAY #30 tabs 06/24/24 Unknown Rx famotidine 20 mg tablet (Pepcid) 20 mg PO DAILY 14 days #14 tabs 06/27/24 Unknown Rx dicyclomine 20 mg tablet 20 mg PO TID PRN abdominal pain 06/30/24 Unknown Rx #20 tabs famotidine 20 mg tablet (Pepcid) 20 mg PO BID #60 tabs 06/30/24 Unknown Rx ondansetron 4 mg disintegrating 4 mg PO Q8H PRN PRN Nausea #10 tabs 07/12/24 Unknown Rx tablet Allergy/AdvReac Type Severity Reaction Status Date / Time cyclobenzaprine Allergy Mild Rash Verified 07/12/24 13:37 Family History Other Alcoholism Arthritis Cancer Diabetes Hypertension Obesity Seizures Social History household members: significant other Smoking Status: Never smoker alcohol intake: current alcohol intake frequency: holidays/special occasions only substance use type: does not use caffeine: Yes (x2 week) ROS <MATHIEU Mar - Last Filed: 07/12/24 15:34> ROS ED ROS Narrative Constitutional: Negative for fever, chills, weight loss, weakness Eyes: Negative for vision loss, vision change, double vision ENT: Negative for any sore throat, ear pain, congestion Cardiovascular: Negative for any chest pain, tightness, palpitations Respiratory: Negative for any cough, sputum production, hemoptysis, dyspnea, dyspnea on exertion, orthopnea Gastrointestinal: Negative for any diarrhea, constipation, blood in stool, blood in vomit. Positive for right upper quadrant abdominal pain, nausea and vomiting : Negative for any urinary frequency, dysuria, retention, blood in urine Muscle skeletal: Negative for any neck pain, back pain Neurological: Negative for any headache, syncope, dizziness Skin: Negative for any rashes, itching, abrasions, lacerations Psychiatric: Negative for any depression, anxiety, stress, suicidal ideation, homicidal ideation Hematologic: Negative for any excessive bruising, easy bleeding EXAM <MATHIEU Mar - Last Filed: 07/12/24 15:34> Physical Exam Narrative Exam Narrative: Vital signs reviewed. HEET: Head normocephalic atraumatic, TMs clear bilaterally. Posterior pharynx is clear, moist mucous membranes. Nares clear bilaterally. Neck: Supple with no lymphadenopathy or tenderness. No signs of meningismus. Cardiac: Regular rate and rhythm no murmurs gallops or rubs, equal peripheral pulses bilaterally. Respiratory: Lungs clear to auscultation bilaterally. No chest tenderness. Abdomen: Soft, nondistended. No abdominal bruit or pulsatile masses. No hepatosplenomegaly. Active bowel sounds in all quadrants, no peritoneal sign Extremities: No peripheral edema, no signs of gross trauma or deformity. Active full range of motion of all extremities. Neuro: Cranial nerves II through XII intact, no focal neurological deficits. Skin: Clean dry and intact with no rash, purpura, petechiae, vesicles or pustules. Backs/flank: No CVA tenderness, no midline spinal tenderness, no deformity. Psych: Normal mood and affect. No SI, HI or acute psychosis. Const Vital Signs: 07/12/24 13:37 Temperature 98.7 F Temperature Source Oral Pulse Rate 110 H Respiratory Rate 18 Blood Pressure 151/105 H Blood Pressure Mean 120 Pulse Ox 100 Oxygen Delivery Method Room Air <Dr. Esteban Oconnor MD - Last Filed: 07/12/24 14:33> Physical Exam Const Vital Signs: 07/12/24 13:37 Temperature 98.7 F Temperature Source Oral Pulse Rate 110 H Respiratory Rate 18 Blood Pressure 151/105 H Blood Pressure Mean 120 Pulse Ox 100 Oxygen Delivery Method Room Air [facility] <MATHIEU Mar - Last Filed: 07/12/24 15:34> [facility] Lab Data Labs: Laboratory Results - last 24 hr 07/12/24 07/12/24 14:03 15:00 WBC 8.4 RBC 4.93 Hgb 13.5 Hct 40.7 MCV 82.6 MCH 27.4 MCHC 33.2 RDW Std Deviation 42.1 RDW Coeff of Flor[place]ma 14.1 Plt Count 398 MPV 10.9 Immature Gran % (Auto) 0.200 Neut % (Auto) 72.1 H Lymph % (Auto) 18.9 L [place] % (Auto) 8.0 Eos % (Auto) 0.2 Baso % (Auto) 0.6 Absolute Neuts (auto) 6.1 Absolute Lymphs (auto) 1.59 Nucleated RBC % 0 Sodium 139 Potassium 3.6 Chloride 101 Carbon Dioxide 18.5 L Anion Gap 19 H BUN 7 Creatinine 0.80 Estim Creat Clear Calc 120.27 Est GFR (MDRD) Non-Af 107 BUN/Creatinine Ratio 9.1 L Glucose 83 Calcium 9.8 Total Bilirubin 0.43 Direct Bilirubin 0.24 AST 35 H ALT 37 H Alkaline Phosphatase 98 Total Protein 8.5 H Albumin 4.9 Globulin 3.6 Lipase 16 Serum , Qual NEGATIVE Urine Color Yellow Urine Clarity Clear Urine pH 6.0 Ur Specific [place] 1.015 Urine Protein 15 H Urine Glucose (UA) Normal Urine Ketones 150 A* Urine Occult Blood 10 H Urine Nitrite Negative Urine Bilirubin Negative Urine Urobilinogen Normal Ur Leukocyte Esterase 25 H Urine RBC 0 SEEN Urine WBC 0 SEEN Ur Squamous Epith Cells 0-5 SEEN Urine Bacteria 0 SEEN Urine Mucus 0 SEEN Treatment and Re-Evaluation :: Differential diagnosis includes however is not limited to: Viral gastroenteritis, biliary colic, cholecystitis, choledocholithiasis, pancreatitis, GERD, gastric ulcer Patient appears generally well, vital signs are stable, patient is nontoxic-appearing. Presented to the emerged part with complaints of right upper quadrant abdominal pain. Patient did have recent imaging On 06/30/2024, this showed no visualized cholelithiasis or evidence of any cholecystitis. Patient also received a CT scan on the same day and this showed no acute process. At this time, do not we have the patient needs any advanced imaging at this time. Patient received some basic laboratory values IV fluids, IV Zofran will be reevaluated. Patient is CBC was unremarkable, patient's chemistries were unremarkable, AST was 35, ALT was 37, this is improved from previous in the month. Patient's serum is negative, lipase is 16. On reevaluation, the patient's belly is soft, patient feels much more improvement after IV fluids, Zofran Toradol. Patient will be given Zofran for home. She is instructed continue following up with her GI specialist. All questions were answered, patient stable for discharge. <Dr. Esteban Oconnor MD - Last Filed: 07/12/24 14:33> [facility] Narrative Medical decision making narrative: I have personally performed a face to face assessment of the patient and have reviewed the SERGEI Note. I performed a substantive portion of the visit including all aspects of the following. My hernandez findings include: History is [healthy 23-year-old female no prior abdominal surgery. Complaining of several week history of epigastric abdominal pain with intermittent nausea vomiting. No dysuria. No vaginal bleeding. Was seen recently in emergency department about 2 weeks ago had negative workup including a CT of her abdomen and pelvis and an ultrasound of her gallbladder.] Exam is [well-appearing 23-year-old female. Vital signs stable afebrile. H EENT exam pupils round react light. Moist mucous membranes. Neck nontender no lymphadenopathy. Lungs clear to auscultation. Heart regular rhythm rate about 100 no murmur. Abdomen soft nondistended normal bowel sounds without peritoneal signs. Mild epigastric right upper quadrant tenderness. No rebound guarding rigidity. No Chamberlain sign. Right lower quadrant nontender. No hernia or mass. No distention. Left side abdomen is nontender. Moving all 4 extremities. Back nontender. Neurologic exam normal.] Medical Decision Making [23-year-old with nausea vomiting epigastric abdominal pain. Recent workup negative. I do not think she needs imaging at this time. Will do screening labs. IV fluids and Zofran.] Other additions or changes: [None] History & Record Review Discussion w/independent historian: Patient Additional record(s) reviewed:: Prior inpatient record, Prior outpatient record, Prior ED visit and Prior labs Lab Data Attestation: I reviewed the patient's lab results. Lab results narrative: CBC normal. White count 8. H&H 13 and 40. Platelets 398. Labs: Laboratory Results - last 24 hr 07/12/24 07/12/24 14:03 15:00 WBC 8.4 RBC 4.93 Hgb 13.5 Hct 40.7 MCV 82.6 MCH 27.4 MCHC 33.2 RDW Std Deviation 42.1 RDW Coeff of Flor[place]ma 14.1 Plt Count 398 MPV 10.9 Immature Gran % (Auto) 0.200 Neut % (Auto) 72.1 H Lymph % (Auto) 18.9 L [place] % (Auto) 8.0 Eos % (Auto) 0.2 Baso % (Auto) 0.6 Absolute Neuts (auto) 6.1 Absolute Lymphs (auto) 1.59 Nucleated RBC % 0 Sodium 139 Potassium 3.6 Chloride 101 Carbon Dioxide 18.5 L Anion Gap 19 H BUN 7 Creatinine 0.80 Estim Creat Clear Calc 120.27 Est GFR (MDRD) Non-Af 107 BUN/Creatinine Ratio 9.1 L Glucose 83 Calcium 9.8 Total Bilirubin 0.43 Direct Bilirubin 0.24 AST 35 H ALT 37 H Alkaline Phosphatase 98 Total Protein 8.5 H Albumin 4.9 Globulin 3.6 Lipase 16 Serum , Qual NEGATIVE Urine Color Yellow Urine Clarity Clear Urine pH 6.0 Ur Specific [place] 1.015 Urine Protein 15 H Urine Glucose (UA) Normal Urine Ketones 150 A* Urine Occult Blood 10 H Urine Nitrite Negative Urine Bilirubin Negative Urine Urobilinogen Normal Ur Leukocyte Esterase 25 H Urine RBC 0 SEEN Urine WBC 0 SEEN Ur Squamous Epith Cells 0-5 SEEN Urine Bacteria 0 SEEN Urine Mucus 0 SEEN Discharge Plan Triage Chief Complaint: Abd Pain ED Midlevel Provider: Espinoza Lee ED Provider: Esteban Oconnor Dx/Rx/DC Orders Clinical Impression: Abdominal pain, RUQ pain Instructions: Abdominal Pain, ED Abdominal Pain Unkn Cause Fem Prescriptions: New ondansetron 4 mg tablet,disintegrating 4 mg PO Q8H PRN PRN (Reason: Nausea) Qty: 10 0RF No Action mecobalamin (vitamin B12) 1,000 mcg tablet,chewable 2,000 mcg PO DAILY metoprolol succinate 50 mg tablet extended release 24 hr 50 mg PO QDAY Qty: 90 3RF L norgest/e.estradiol-e.estrad [Jaimiess] 0.15 mg-30 mcg (84)/10 mcg (7) tablets,dose pack,3 month See Rx Instructions PO .COMPLEX Rx Instructions: take 1 tablet daily following the order on blister card(s) PO ondansetron 4 mg tablet,disintegrating 4 mg PO Q8H PRN (Reason: nausea and vomiting) Zyrtec 10 mg capsule 10 mg PO QDAY PRN (Reason: allergy symptoms) sertraline 100 mg tablet 100 mg PO QDAY Qty: 30 1RF Qelbree 200 mg capsule,extended release 24hr 400 mg PO QDAY Qty: 60 1RF vonoprazan 10 mg tablet 10 mg PO QDAY Qty: 30 2RF famotidine [Pepcid] 20 mg tablet 20 mg PO DAILY 14 Days Qty: 14 0RF famotidine [Pepcid] 20 mg tablet 20 mg PO BID Qty: 60 0RF dicyclomine 20 mg tablet 20 mg PO TID PRN (Reason: abdominal pain) Qty: 20 0RF azelastine 137 mcg (0.1 %) spray,non-aerosol 2 spray intranasal BID Qty: 30 0RF Rx Instructions: administer into each nostril sucralfate [Carafate] 1 gram tablet 1 g PO BID Qty: 14 0RF trazodone 50 mg tablet 50 mg PO QHS PRN (Reason: insomnia) Qty: 90 1RF Primary Care Provider: Karthik Lino Referrals: Karthik Lino MD [Primary Care Provider] - Activity Restrictions/Additional Instructions: Please take the Zofran, continue following up with your GI specialist, all question answered, stable for discharge. Print Language: Danish Disposition Disposition: Home, Self Care
[2024-07-12 14:28] LABS: Absolute Lymphocyte Count 1.59 X10^3/uL (0.83-4.51); Absolute Neutrophil Count 6.1 X10^3/uL (2.0-7.7); Basophil# 0.05 X10^3/uL; Basophil% 0.6 % (0-1); Eosinophil# 0.02 X10^3/uL; Eosinophils% 0.2 % (0-5); Hematocrit 40.7 % (37-47); Hemoglobin 13.5 g/dL (12.0-15.0); Lymphocyte # 1.59 X10^3/ul (0.83-4.51); Lymphocyte % 18.9 % (19-41); Mean Corp Hgb Conc 33.2 g/dL (32-36); Mean Corpuscular Hgb 27.4 pg (27.0-32.0); Mean Corpuscular Volume 82.6 fL (81-99); Mean Platelet Vol. 10.9 fl (6.2-12.0); Monocyte# 0.67 X10^3/uL; NRBC Flagged by Analyzer 0 % (0-5); Neutrophil # 6.07 X10^3/uL (2.7-7.7); Neutrophil % 72.1 % (47-70); Platelet Count 398 K/mm3 (150-450); RBC Distribution Width CV 14.1 % (11.6-14.6); RBC Distribution Width SD 42.1 fl (35.1-43.9); Red Blood Count 4.93 M/mm3 (4.2-5.4); White Blood Count 8.4 K/mm3 (4.4-11.0)
[2024-07-12 14:38] LABS: Internal QC Validated? YES +Cl - CLEAR BKGD; Pregnancy, Serum, hCG Quali. NEGATIVE Negative
[2024-07-12] MEDS: Ketorolac 15 MG/ML Vial IV (14:49)
[2024-07-12 15:08] LABS: Bacteria 0 SEEN /hpf (None Seen); Mucous, Urine 0 SEEN /hpf (<or=2+); White Blood Cells 0 SEEN /hpf (0-5)
[2024-07-12 15:13] LABS: Color, Urine Yellow (Yellow); Glucose, Dipstick Normal (Normal); Leukocyte Esterase-Dipstick 25 /ul (Negative); Nitrite-Dipstick Negative (Negative); Occult Blood-Urine 10 /ul (Negative); Protein-Dipstick 15 mg/dl (Negative); Specific Gravity, Urine 1.015 (1.002-1.030); Urine Bilirubin Dipstick Negative (Negative); Urine Clarity Clear (Clear); Urine Urobilinogen Normal (Normal)
[2024-07-12 15:14] LABS: Ketone-Dipstick 150 mg/dl (Negative)
[2024-07-12 15:15] LABS: AST(SGOT) 35 U/L (<=31); Alanine Aminotransfer ALT/SGPT 37 U/L (<=34); Albumin, Serum 4.9 g/dL (3.5-5.0); Alkaline Phosphatase 98 U/L (35-104); Anion Gap 19 (5-15); BUN 7 mg/dL (4-19); BUN/Creat Ratio 9.1 RATIO (10-20); Bilirubin, Direct 0.24 mg/dL (0.00-0.30); Calcium,Total 9.8 mg/dL (7.6-11.0); Carbon Dioxide 18.5 mmol/L (21.0-32.0); Chloride 101 mmol/L (98-108); EST Glomerular Filtration Rate 107 (>60); Estimated Creatinine Clearance 120.27 ml/min (50-250); Globulin 3.6 g/dL (2.2-4.2); Glucose 83 mg/dL (70-99); Lipase 16 U/L (13-75); Potassium 3.6 mmol/L (3.3-5.1); Protein, Total 8.5 g/dL (5.9-8.4); Sodium Level 139 mmol/L (133-145); Total Bilirubin 0.43 mg/dL (0.00-1.30)
[2024-07-12 15:23] LABS: Red Blood Cells-Urine 0 SEEN /hpf (0-5); Squamous Epithelial Cells - UA 0-5 SEEN /hpf (5-10)
[2024-07-12 15:38] VITALS: BP 135/96; PULSE 80; RESP 18; TEMP 37.1; O2SAT 100
== END 2024-07-12 15:41 | disposition home or self-care (01) ==
PROVIDERS: Nurse Practitioner; Emergency Provider Emergency Medicine; PCP Family Medicine; Visit Provider Emergency Medicine
DX: R10.11 Right upper quadrant pain (principal)
CPT/HCPCS: 80048; 80076; 81001; 83690; 84703; 85025; 96361; 96374; 96375; 96376; 99282; J2405

== ENCOUNTER 2024-07-18 12:31 | Observation (INO) | payer OTHER, SELFPAY ==
[2024-07-18 12:31] VITALS: BP 146/98; PULSE 120; RESP 18; TEMP 37.2; O2SAT 98; BMI 39.0
[2024-07-18 13:12] LABS: Absolute Lymphocyte Count 1.94 X10^3/uL (0.83-4.51); Absolute Neutrophil Count 5.4 X10^3/uL (2.0-7.7); Basophil# 0.05 X10^3/uL; Basophil% 0.6 % (0-1); Eosinophil# 0.05 X10^3/uL; Eosinophils% 0.6 % (0-5); Hematocrit 44.4 % (37-47); Hemoglobin 14.2 g/dL (12.0-15.0); Lymphocyte # 1.94 X10^3/ul (0.83-4.51); Lymphocyte % 23.8 % (19-41); Mean Corpuscular Hgb 26.9 pg (27.0-32.0); Mean Corpuscular Volume 84.1 fL (81-99); Mean Platelet Vol. 10.9 fl (6.2-12.0); Monocyte# 0.71 X10^3/uL; Monocyte% 8.7 % (0-10); NRBC Flagged by Analyzer 0 % (0-5); Neutrophil # 5.37 X10^3/uL (2.7-7.7); Neutrophil % 65.9 % (47-70); Platelet Count 405 K/mm3 (150-450); RBC Distribution Width CV 14.5 % (11.6-14.6); Red Blood Count 5.28 M/mm3 (4.2-5.4); White Blood Count 8.2 K/mm3 (4.4-11.0)
[2024-07-18 13:24] LABS: Internal QC Validated? YES +Cl - CLEAR BKGD; Pregnancy, Serum, hCG Quali. NEGATIVE Negative
[2024-07-18 13:33] LABS: ALB/GLOB Ratio 1.4 RATIO (0.9-2.4); AST(SGOT) 23 U/L (<=31); Alanine Aminotransfer ALT/SGPT 20 U/L (<=34); Albumin, Serum 4.9 g/dL (3.5-5.0); Alkaline Phosphatase 95 U/L (35-104); Anion Gap 22 (5-15); BUN 12 mg/dL (4-19); Carbon Dioxide 18.8 mmol/L (21.0-32.0); Chloride 102 mmol/L (98-108); Creatinine, Serum 0.81 mg/dL (0.70-1.20); EST Glomerular Filtration Rate 106 (>60); Estimated Creatinine Clearance 118.29 ml/min (50-250); Globulin 3.6 g/dL (2.2-4.2); Glucose 87 mg/dL (70-99); Lipase 29 U/L (13-75); Potassium 3.9 mmol/L (3.3-5.1); Protein, Total 8.5 g/dL (5.9-8.4); Sodium Level 143 mmol/L (133-145); Total Bilirubin 0.39 mg/dL (0.00-1.30)
[2024-07-18] MEDS: 0.9% Normal Saline (1000mL) 1,000 ML 999 ML IV (13:36)
[2024-07-18] MEDS: Ondansetron 4 MG/2 ML Vial IV ×2 (13:36→22:04)
[2024-07-18] MEDS: Famotidine 200 MG/20 ML MDV 20 MG in 0.9% Normal Saline (Pres. free 8 ML 300 MG IV (13:37)
[2024-07-18 14:31] VITALS: BP 164/95; PULSE 103; RESP 18; O2SAT 97
--- NOTE | 2024-07-18 14:48 | EDS_ITS ---
HPI HPI - GI History of Present Illness Chief Complaint: Abd Pain Informant: patient Narrative Narrative: Recurrent epigastric abdominal pain nausea vomiting for the past 7 days unable to keep anything down. Diarrhea every other day. Nonbloody. No abdominal surgeries. No urinary symptoms. Patient with symptoms started approximate 4 weeks ago that is new for her. She has been emergency department multiple times most recent was 6 days ago. She had 3 additional visits early to mid June. She has had CT scans and ultrasounds that were essentially negative. 1 ultrasound questionable sludge however repeat was negative. She seen by general surgery as a consult the ED felt it was more GI concerns she had Pepcid increased. She has follow-up with her GI team 2 weeks ago she is placed Vonoprazan daily. States not helping. She had ordered for HIDA scan however states recently was denied. She states the GI team has ordered MRCP. She has a repeat gastric emptying test also pending. She is not a diabetic. Previous upper endoscopy this past January through [facility] stating negative. She states her GI team reports needs results of testing that is pending. Prior similar symptoms: Yes [facility] Medical History Postural orthostatic tachycardia syndrome [POTS] Anxiety Home Medications ?Medication ?Instructions ?Recorded ?Last Taken ?Type mecobalamin (vitamin B12) 1,000 2,000 mcg PO DAILY 12/07 Unknown History mcg chewable tablet azelastine 137 mcg (0.1 %) nasal 2 spray intranasal BI D #30 mL 02/13/24 Unknown Rx spray metoprolol succinate 50 mg 50 mg PO QDAY #90 tabs 02/14 06/09 Unknown Rx tablet,extended release 24 hr L norgest/E estradiol-E estrad See Rx Instructions PO .COMPLEX 03/10/24 Unknown History 0.15 mg-30 mcg (84)/10 mcg(7) tabs,3mos (Jaimiess) cetirizine 10 mg capsule (Zyrtec) 10 mg PO QDAY PRN al lergy symptoms 03/10/24 Unknown History ondansetron 4 mg disintegrating 4 mg PO Q8H PRN nausea and vomiting 03/10/24 Unknown History tablet sertraline 100 mg tablet 100 mg PO QDAY #30 tabs 04/17 05/10 Unknown Rx viloxazine 200 mg capsule,extended 400 mg (2 x 200 mg) PO QDAY #60 05/06/24 Unknown Rx release 24 hr (Qelbree) caps trazodone 50 mg tablet 50 mg PO QHS PRN insomnia #9 0 tabs 05/22/24 Unknown Rx sucralfate 1 gram tablet (Carafate) 1 g PO BID #14 tab s 06/23/24 Unknown Rx vonoprazan 10 mg tablet 10 mg PO QDAY #30 tabs 06/24 Unknown Rx famotidine 20 mg tablet (Pepcid) 20 mg PO DAILY 14 day s #14 tabs 06/27/24 Unknown Rx dicyclomine 20 mg tablet 20 mg PO TID PRN abdominal p ain 06/30/24 Unknown Rx #20 tabs famotidine 20 mg tablet (Pepcid) 20 mg PO BID #60 tabs 06/30/24 Unknown Rx ondansetron 4 mg disintegrating 4 mg PO Q8H PRN PRN Na usea #10 tabs 07/12/24 Unknown Rx tablet Allergy/AdvReac Type Severity Reaction Status Date / Time cyclobenzaprine Allergy Mild Rash Verified 07/18/24 12:31 Family History Other Alcoholism Arthritis Cancer Diabetes Hypertension Obesity Seizures Social History household members: significant other Smoking Status: Never smoker alcohol intake: current alcohol intake frequency: holidays/special occasions only substance use type: does not use caffeine: Yes (x2 week) ROS ROS ED Constitutional Constitutional ED: Denies chills, fever(s) or sweats ENT ENT ED: Denies sore throat Cardiovascular Cardiovascular: Denies chest pain, leg edema, palpitations or racing heartbeat Respiratory/Chest Respiratory/Chest: Denies cough, dyspnea or dyspnea on exertion Gastrointestinal Gastrointestinal: Reports abdominal pain, diarrhea, nausea and vomiting Genitourinary Genitourinary ED: Denies dysuria, hematuria or urinary frequency Musculoskeletal Musculoskeletal: Denies back pain, extremity pain or neck pain Integumentary Denies rash or wounds Neurologic Neurologic: Denies headache(s), paresthesias or weakness EXAM Physical Exam Const Vital Signs: 07/18/24 12:31 07/18/24 14:31 Temperature 98.9 F Temperature Source Temporal Pulse Rate 120 H 103 H Respiratory Rate 18 18 Blood Pressure 146/98 H 164/95 H Blood Pressure Mean 114 118 Pulse Ox 98 97 Oxygen Delivery Method Room Air Positive well nourished and well developed General Appearance ED: well developed and NAD HEENT Reports moist mucous membranes normocephalic and atraumatic Eyes General Eye ED: Yes normal appearance of both eyes Neck full ROM Chest Wall Chest: Negative for tenderness Resp normal respiratory effort and normal air movement Effort and Inspection: symmetric chest movement; Negative for respiratory distress Cardio regular rhythm and no murmurs Rate: tachycardic Peripheral Pulses: pulses 2+ throughout GI normal to inspection, nondistended, normoactive bowel sounds and non-tender Palpation: Negative for guarding or rebound tenderness present Extremity normal to inspection General Extremety ED: Negative for edema or tenderness General Extremity: Negative for edema Neuro oriented x3 and no sensory deficits noted Sensorium / Orientation: awake and alert Skin no rashes or lesions noted and no wounds MDM MDM MDM Narrative Medical decision making narrative: Interventions / MDM: Differential diagnosis: Intractable nausea and vomiting, cyclic vomiting syndrome, abdominal pain Diagnosis considered but do not suspect: N/A My EKG interpretation: N/A Imaging independently reviewed and interpreted by myself: N/A External documents reviewed: ER visits in June x 4, GI office visits. Gallbladder ultrasound and CT scans from last month. Test considered but not ordered:N/A ED course: Patient tachycardic recurrent epigastric pain vomiting with intermittent diarrhea. Nonbloody. Multiple recent workups CT scans ultrasounds negative. She is followed by GI. Upcoming reported MRCP gastric emptying test. This would be her fifth visit in a month. With her tachycardia and symptoms IV established abdominal labs ordered fluids Zofran and Pepcid. Do not feel repeat images is necessary. 1455: Labs normal she reports pain returned and had dry heaves 1 emergency department. Will treat with GI cocktail which she states transient relief in the past. She denied any recreational drug use however we will check toxicology screen, additional IV Haldol for symptoms. 1520: I discussed with gastroenterology Dr. Jorgensen, discussed patient's history workups in the past month, office visits with his assistance. He recommends admission for MRCP to evaluate for sphincter, also recommend getting HIDA scan while in the hospital. He will follow as an inpatient with further recommendations. Hospitalist on page for admission. Re-evaluation: stable Disposition discussed with patient/family/significant other: Patient Case discussed with consulting clinician: Hospitalist, assembler engine This note was generated with [employer]ueda dictation software. It may contain incorrect words, spelling, and punctuation that were not noted in checking the note before signing. Lab Data Attestation: I reviewed the patient's lab results. Labs: Laboratory Results - last 24 hr 07/18/24 12:40 WBC 8.2 RBC 5.28 Hgb 14.2 Hct 44.4 MCV 84.1 MCH 26.9 L MCHC 32.0 RDW Std Deviation 44.0 H RDW Coeff of [place]ma 14.5 Plt Count 405 MPV 10.9 Immature Gran % (Auto) 0.400 Neut % (Auto) 65.9 Lymph % (Auto) 23.8 [place] % (Auto) 8.7 Eos % (Auto) 0.6 Baso % (Auto) 0.6 Absolute Neuts (auto) 5.4 Absolute Lymphs (auto) 1.94 Nucleated RBC % 0 Sodium 143 Potassium 3.9 Chloride 102 Carbon Dioxide 18.8 L Anion Gap 22 H BUN 12 Creatinine 0.81 Estim Creat Clear Calc 118.29 Est GFR (MDRD) Non-Af 106 BUN/Creatinine Ratio 15.0 Glucose 87 Calcium 10.0 Total Bilirubin 0.39 AST 23 ALT 20 Alkaline Phosphatase 95 Total Protein 8.5 H Albumin 4.9 Globulin 3.6 Albumin/Globulin Ratio 1.4 Lipase 29 Serum , Qual NEGATIVE Discharge Plan Triage Chief Complaint: Abd Pain ED Provider: Jesse Tan Dx/Rx/DC Orders Clinical Impression: Intractable vomiting with nausea, Cyclic vomiting syndrome Prescriptions: No Action mecobalamin (vitamin B12) 1,000 mcg tablet,chewable 2,000 mcg PO DAILY metoprolol succinate 50 mg tablet extended release 24 hr 50 mg PO QDAY Qty: 90 3RF L norgest/e.estradiol-e.estrad [Jaimiess] 0.15 mg-30 mcg (84)/10 mcg (7) tablets,dose pack,3 month See Rx Instructions PO .COMPLEX Rx Instructions: take 1 tablet daily following the order on blister card(s) PO ondansetron 4 mg tablet,disintegrating 4 mg PO Q8H PRN (Reason: nausea and vomiting) Zyrtec 10 mg capsule 10 mg PO QDAY PRN (Reason: allergy symptoms) sertraline 100 mg tablet 100 mg PO QDAY Qty: 30 1RF Qelbree 200 mg capsule,extended release 24hr 400 mg PO QDAY Qty: 60 1RF vonoprazan 10 mg tablet 10 mg PO QDAY Qty: 30 2RF famotidine [Pepcid] 20 mg tablet 20 mg PO DAILY 14 Days Qty: 14 0RF famotidine [Pepcid] 20 mg tablet 20 mg PO BID Qty: 60 0RF dicyclomine 20 mg tablet 20 mg PO TID PRN (Reason: abdominal pain) Qty: 20 0RF azelastine 137 mcg (0.1 %) spray,non-aerosol 2 spray intranasal BID Qty: 30 0RF Rx Instructions: administer into each nostril sucralfate [Carafate] 1 gram tablet 1 g PO BID Qty: 14 0RF ondansetron 4 mg tablet,disintegrating 4 mg PO Q8H PRN PRN (Reason: Nausea) Qty: 10 0RF trazodone 50 mg tablet 50 mg PO QHS PRN (Reason: insomnia) Qty: 90 1RF Primary Care Provider: Karthik Lino Referrals: Karthik Lino MD [Primary Care Provider] - Print Language: Ukrainian Disposition Disposition: Acute Care Hospital [facility]
[2024-07-18] MEDS: Mag Hydrox/Al Hydrox/Simeth 30 ML UDC PO (15:21)
[2024-07-18] MEDS: Lidocaine 2% Viscous15 ML UDC 15 ML PO (15:21)
[2024-07-18] MEDS: Haloperidol Lactate 5 MG/ML Vial 2 MG IV (15:21)
--- NOTE | 2024-07-18 15:37 | HP.PCM.HOS_ITS ---
[facility] - General General Date of Admission: 07/18/24 Date of Service: 07/18/24 HPI Narrative ACE ROSAS, is a 23 F with a PMH as outlined who presents via the ED on 07/18/2024 with a complaint of abdominal pain and intractable nausea and vomiting. This has been going on for about seven days, and patient has been unable to keep anything down. She has had diarrhea every other day also which was nonbloody. She denied any history of abdominal surgeries and also denies any urinary symptoms.She has seen GI in the past and says she was to have a HIDA scan but this was denied on outpatient basis. She had a CT abdomen [facility] ED on 07/08/2024 which was negative for any pathology. She had an abdominal USG also which was initially questionable for sludge, but repeat gallbladder USG was negative for any evidence of sludge or stones. She says she has had an EGD in the past with [facility] which was negative. Her last ER visit was 6 days ago. She says she has had gastric emptying study done which was negative and a repeat has also bee n done which is pending. She denied any fever or chills, palpitations or dizziness and denies any marijuana use. She has been seen by general surgery in the past but her symptoms were thought to be GI related. Review of systems otherwise negative. Vitals in the ED were blood pressure 164/95, pulse rate of 103, respiratory rate of 18 oxygen saturation of 97% on room air. CBC showed hemoglobin of 14.2 with WBC of 8.2 and platelets of 405. Chemistry shows sodium of 143 with potassium of 3.9 and bicarb of 18.8 and creatinine of 0.81. Urine tox was pending. She has been admitted to the manage for intractable nausea and vomiting of unclear etiology. The ED doctor did speak to GI who requested inpatient HIDA scan as well as an MRCP. [facility] Medical History Postural orthostatic tachycardia syndrome [POTS] Anxiety Home Medications ?Medication ?Instructions ?Recorded ?Last Taken ?Type mecobalamin (vitamin B12) 1,000 2,000 mcg PO DAILY 12/07 Unknown History mcg chewable tablet azelastine 137 mcg (0.1 %) nasal 2 spray intranasal BI D #30 mL 02/13/24 Unknown Rx spray metoprolol succinate 50 mg 50 mg PO QDAY #90 tabs 02/14 06/09 Unknown Rx tablet,extended release 24 hr L norgest/E estradiol-E estrad See Rx Instructions PO .COMPLEX 03/10/24 Unknown History 0.15 mg-30 mcg (84)/10 mcg(7) tabs,3mos (Jaimiess) cetirizine 10 mg capsule (Zyrtec) 10 mg PO QDAY PRN al lergy symptoms 03/10/24 Unknown History ondansetron 4 mg disintegrating 4 mg PO Q8H PRN nausea and vomiting 03/10/24 Unknown History tablet sertraline 100 mg tablet 100 mg PO QDAY #30 tabs 04/17 05/10 Unknown Rx viloxazine 200 mg capsule,extended 400 mg (2 x 200 mg) PO QDAY #60 05/06/24 Unknown Rx release 24 hr (Qelbree) caps trazodone 50 mg tablet 50 mg PO QHS PRN insomnia #9 0 tabs 05/22/24 Unknown Rx sucralfate 1 gram tablet (Carafate) 1 g PO BID #14 tab s 06/23/24 Unknown Rx vonoprazan 10 mg tablet 10 mg PO QDAY #30 tabs 06/24 Unknown Rx dicyclomine 20 mg tablet 20 mg PO TID PRN abdominal p ain 06/30/24 Unknown Rx #20 tabs ondansetron 4 mg disintegrating 4 mg PO Q8H PRN PRN Na usea #10 tabs 07/12/24 Unknown Rx tablet Allergy/AdvReac Type Severity Reaction Status Date / Time cyclobenzaprine Allergy Mild Rash Verified 07/18/24 12:31 Family History Other Alcoholism Arthritis Cancer Diabetes Hypertension Obesity Seizures Social History household members: significant other Smoking Status: Never smoker alcohol intake: current alcohol intake frequency: holidays/special occasions only substance use type: does not use caffeine: Yes (x2 week) ROS Constitutional Constitutional: Reports anorexia, fatigue, malaise and weakness; Denies change in weight, chills or fever(s) Eyes Eyes: Denies change in vision ENT HEENT: Denies dysphagia, epistaxis, headache(s) or sore throat Cardiovascular Cardiovascular: Denies chest pain, dyspnea on exertion, edema, lightheadedness, orthopnea, palpitations, paroxysmal nocturnal dyspnea or rapid heart rate Respiratory/Chest Respiratory/Chest: Denies cough, dyspnea, shortness of breath at rest or shortness of breath with exertion Gastrointestinal Gastrointestinal: Reports abdominal pain, nausea and vomiting; Denies coffee ground emesis, constipation, diarrhea, dyspepsia, hematemesis, hematochezia, loose stools or melena Genitourinary Genitourinary: Denies burning urination or dysuria Musculoskeletal Musculoskeletal: Denies arthralgias Neurologic Neurologic: Denies confusion, dizziness, focal weakness, headache(s), seizures or syncope Psychiatric Psychiatric: Denies anxiety or depression Vital Signs Vital Signs Vital Signs: 07/18/24 12:31 07/18/24 14:31 Temperature 98.9 F Temperature Source Temporal Pulse Rate 120 H 103 H Respiratory Rate 18 18 Blood Pressure 146/98 H 164/95 H Blood Pressure Mean 114 118 Pulse Ox 98 97 Oxygen Delivery Method Room Air Weight Weight: 213 lb 6.519 oz Body Mass Index (BMI) 39.0 Physical Exam Const alert, oriented x3 and no apparent distress General Appearance: cooperative HEENT normocephalic, head/scalp atraumatic, hearing grossly normal bilaterally and moist oral mucous membranes Mouth: oral and palatal mucosa normal Eyes PERRL, EOMs intact bilaterally and conjunctivae normal Neck no lymphadenopathy and supple Resp normal respiratory effort, no retractions, no use of accessory muscles and clear to auscultation bilaterally Cardio regular rate, regular rhythm, S1 normal heart sound, S2 normal heart sound and no murmurs GI GI Narrative: abdomen soft, moderate generalised tenderness, no guarding or rebound tenderness. Extremity normal to inspection, full ROM and no clubbing, cyanosis or edema Neuro oriented x3, CN's II-XII intact bilaterally, moves all extremities and no focal motor deficits Sensorium / Orientation: awake and alert Motor Exam: strength 5/5 throughout Psych affect normal Results Lab / Micro Data 07/18/24 12:40 07/18/24 12:40 Labs: Laboratory Results - last 24 hr 07/18/24 12:40: WBC 8.2, RBC 5.28, Hgb 14.2, Hct 44.4, MCV 84.1, MCH 26.9 L, MCHC 32.0, RDW Std Deviation 44.0 H, RDW Coeff of Floridalma 14.5, Plt Count 405, MPV 10.9, Immature Gran % (Auto) 0.400, Neut % (Auto) 65.9, Lymph % (Auto) 23.8, Hayes % (Auto) 8.7, Eos % (Auto) 0.6, Baso % (Auto) 0.6, Absolute Neuts (auto) 5.4, Absolute Lymphs (auto) 1.94, Nucleated RBC % 0, Sodium 143, Potassium 3.9, Chloride 102, Carbon Dioxide 18.8 L, Anion Gap 22 H, BUN 12, Creatinine 0.81, Estim Creat Clear Calc 118.29, Est GFR (MDRD) Non-Af 106, BUN/Creatinine Ratio 15.0, Glucose 87, Calcium 10.0, Total Bilirubin 0.39, AST 23, ALT 20, Alkaline Phosphatase 95, Total Protein 8.5 H, Albumin 4.9, Globulin 3.6, Albumin/Globulin Ratio 1.4, Lipase 29, Serum , Qual NEGATIVE Assessment & Plan Assessment/Plan (1) Cyclic vomiting syndrome: (2) Intractable vomiting with nausea: (3) Abdominal pain: PLAN: Plan #Intractable nausea and vomiting * etiology is unclear. * This has been going on for several weeks. She has seen GI and was started on voriconazole. An outpatient HIDA scan was ordered but this was denied by insurance. She also had a CT of the abdomen and pelvis done during her previous ED admission on 06/30/2024. This abdominal imaging was negative. She had an initial gallbladder ultrasound which was questionable for sludge repeat gallbladder ultrasound was negative. * admit to med surg under observation * CBC and BMP are unremarkable * keep NPO for now * urine tox screen pending * IV zofran prn * hydrate with IVF NS @ 150cc/hr * Continue famotidine * #Elevated BP * Blood pressures in the 160s systolic with heart rate of 103. This is likely from the discomfort due to the incessant nausea and vomiting. * on PO metoprolol already * IV hydralazine as needed. If blood pressure remains elevated will consider starting BP medication #Class 3 obesity: Complicates acute care, expected recovery and prognosis. DVT prophylaxis: SCDs Charges/Coding Visit Charges Inpatient E&M: 68696 Init Hosp L2
[2024-07-18 15:59] VITALS: BP 132/88; PULSE 92; RESP 14; TEMP 37.1; O2SAT 98
[2024-07-18 16:09] LABS: Amphetamine Urine NEGATIVE (<1000 ng/mL); Barbiturate Urine NEGATIVE (< 200 ng/mL); Benzodiazepine Urine NEGATIVE (< 200 ng/mL); Buprenorphine Urine NEGATIVE (< 200 ng/mL); Cocaine Urine NEGATIVE (< 300 ng/mL); Fentanyl, Urine NEGATIVE; Methadone Urine NEGATIVE (< 300 ng/mL); Opiates Urine NEGATIVE (< 300 ng/mL); Oxycodone, Urine NEGATIVE (< 100 ng/mL); PCP Urine NEGATIVE (< 25 ng/mL); THC Urine NEGATIVE (< 50 ng/mL)
[2024-07-18 16:58] VITALS: BMI 38.7
--- NOTE | 2024-07-18 16:58 | MRI_ITS ---
PROCEDURE: MRCP ABDOMEN WITHOUT CONTRAST 07/18/2024 REASON FOR EXAM: INTRACTABLE NAUSEA AND VOMITING TECHNIQUE: Multiplanar, multisequence MRI of the upper abdomen without intravenous gadolinium-based contrast. MRCP FINDINGS: The liver, adrenal glands, kidneys, pancreas and spleen appear within limits as imaged. The gallbladder appears within limits without evidence of wall thickening or surrounding inflammatory change. No gallstones identified. Intra and extrahepatic biliary ducts appear within limits. CBD measures 5 mm. No filling defect to suggest choledocholithiasis. No pancreatic ductal dilation identified. MRI/MRCP Abdomen without Contrast IMPRESSION: MRCP appears within limits as above. Reading Location: [id number]
--- NOTE | 2024-07-18 16:58 | NM_ITS ---
PROCEDURE: HEPATOBILIARY IMG W/PHARM INT 07/19/2024 REASON FOR EXAM: INTRACTABLE ABDOMINAL PAIN TECHNIQUE: Intravenous Choletec with planar imaging of the abdomen. 2 mcg Kinevac intravenously approximately 30 minutes after the radiopharmaceutical with additional anterior imaging and a region of interest drawn around the gallbladder to calculate a time-activity curve. RADIOPHARMACEUTICAL: 5.8 mCi Mebrofenin COMPARISON: MRCP 07/18/2024. FINDINGS: There is good uptake of the radiopharmaceutical by the liver. Normal gallbladder visualization with the gallbladder identified by 30 minutes. Gallbladder Ejection Fraction: 26% at 35 minutes NM/Hepatobilliary Img w/Pharm Int IMPRESSION: Normal HIDA scan. No evidence of acute or chronic cholecystitis. Reading Location: [id number]
[2024-07-18 17:00] VITALS: BP 147/91; PULSE 94; RESP 16; TEMP 36.8; O2SAT 100
[2024-07-18 20:59] VITALS: BP 136/87; PULSE 95; RESP 18; TEMP 36.8; O2SAT 100
[2024-07-18] MEDS: 0.9% Normal Saline (1000mL) 1,000 ML 150 ML IV (22:04)
[2024-07-18] MEDS: oxyCODONE 5 MG Tablet PO (22:04)
[2024-07-18] MEDS: 0.9% Saline Lock 10 ML Syringe IV (22:04)
[2024-07-19] VITALS (8 sets, daily range): BP systolic 128–149; BP diastolic 83–101; PULSE 85–95; RESP 16–18; TEMP 36.4–37; O2SAT 96–100
[2024-07-19] MEDS: Acetaminophen 325 MG Tablet 650 MG PO ×3 (03:40→19:53)
[2024-07-19] MEDS: 0.9% Normal Saline (1000mL) 1,000 ML 150 ML IV (04:43)
[2024-07-19 06:06] LABS: Absolute Lymphocyte Count 2.14 X10^3/uL (0.83-4.51); Absolute Neutrophil Count 3.3 X10^3/uL (2.0-7.7); Basophil# 0.04 X10^3/uL; Basophil% 0.7 % (0-1); Eosinophil# 0.09 X10^3/uL; Eosinophils% 1.5 % (0-5); Hematocrit 37.3 % (37-47); Lymphocyte # 2.14 X10^3/ul (0.83-4.51); Mean Corp Hgb Conc 32.2 g/dL (32-36); Mean Corpuscular Hgb 27.3 pg (27.0-32.0); Mean Platelet Vol. 11.4 fl (6.2-12.0); Monocyte# 0.53 X10^3/uL; Monocyte% 8.7 % (0-10); NRBC Flagged by Analyzer 0 % (0-5); Neutrophil # 3.31 X10^3/uL (2.7-7.7); Neutrophil % 53.9 % (47-70); Platelet Count 297 K/mm3 (150-450); RBC Distribution Width CV 14.3 % (11.6-14.6); Red Blood Count 4.39 M/mm3 (4.2-5.4); White Blood Count 6.1 K/mm3 (4.4-11.0)
[2024-07-19 06:38] LABS: Anion Gap 17 (5-15); BUN 7 mg/dL (4-19); BUN/Creat Ratio 10.6 RATIO (10-20); Calcium,Total 8.7 mg/dL (7.6-11.0); Carbon Dioxide 17.8 mmol/L (21.0-32.0); Chloride 105 mmol/L (98-108); Creatinine, Serum 0.69 mg/dL (0.70-1.20); EST Glomerular Filtration Rate 126 (>60); Glucose 72 mg/dL (70-99); Potassium 3.6 mmol/L (3.3-5.1); Sodium Level 140 mmol/L (133-145)
[2024-07-19] MEDS: Cyanocobalamin 500 MCG Tablet 2000 MCG PO (13:18)
[2024-07-19] MEDS: Metoprolol(XL)Succ 50 MG Tablet PO (13:18)
[2024-07-19] MEDS: Sertraline 100 MG Tablet PO (13:19)
[2024-07-19] MEDS: oxyCODONE 5 MG Tablet PO ×3 (13:19→23:59)
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
--- NOTE | 2024-07-19 14:41 | PCM.PN.HOSP ---
Reason for Visit Reason for Visit: Diagnoses Unspecified abdominal pain (07/18/24) Cyclical vomiting syndrome unrelated to migraine (07/18/24) Nausea with vomiting, unspecified (07/18/24) Subjective Subjective Saw patient at bedside this morning. Patient was mildly fatigued appearing but otherwise sitting up comfortably at edge of bed, conversing normally and in no acute distress. She was about to go down for HIDA scan when I saw her. She reported ongoing abdominal discomfort, similar to previous days. No other new concerns at this time. Objective Data Objective Data Vital Signs: Vital Signs Temp Pulse Resp BP Pulse Ox O2 Del Method 98.5 F 86 16 133/95 H 99 Room Air 07/19/24 13:08 07/19/24 13:18 07/19/24 13:08 07/19/24 13:18 07/19/24 13:08 07/19/24 13:08 Oxygen Delivery Method Room Air Weight: 96.1 kg Body Mass Index (BMI) 38.7 Intake & Output: Intake and Output for Last 24 Hours 07/17/24 07/18/24 07/19/24 23:59 23:59 23:59 Intake Total 1010 / 1010 1447.5 / 1447.5 Balance 1010 / 1010 1447.5 / 1447.5 Lab / Micro Data 07/19/24 04:43 07/19/24 04:43 Labs: Laboratory Results - last 24 hr 07/18/24 15:30: Urine Opiates Screen NEGATIVE, U Buprenorphine Qual NEGATIVE, Ur Oxycodone Screen NEGATIVE, Urine Methadone Screen NEGATIVE, Urine Fentanyl Screen NEGATIVE, Ur Barbiturates Screen NEGATIVE, Ur Phencyclidine Scrn NEGATIVE, Ur Amphetamines Screen NEGATIVE, U Benzodiazepines Scrn NEGATIVE, Urine Cocaine Screen NEGATIVE, U Cannabinoids Screen NEGATIVE 07/19/24 04:43: WBC 6.1, RBC 4.39, Hgb 12.0, Hct 37.3, MCV 85.0, MCH 27.3, MCHC 32.2, RDW Std Deviation 44.0 H, RDW Coeff of [place] 14.3, Plt Count 297, MPV 11.4, Immature Gran % (Auto) 0.200, Neut % (Auto) 53.9, Lymph % (Auto) 35.0, [place] % (Auto) 8.7, Eos % (Auto) 1.5, Baso % (Auto) 0.7, Absolute Neuts (auto) 3.3, Absolute Lymphs (auto) 2.14, Nucleated RBC % 0, Sodium 140, Potassium 3.6, Chloride 105, Carbon Dioxide 17.8 L, Anion Gap 17 H, BUN 7, Creatinine 0.69 L, Estim Creat Clear Calc 138.30, Est GFR (MDRD) Non-Af 126, BUN/Creatinine Ratio 10.6, Glucose 72, Calcium 8.7 Radiography Diagnostic Testing: Radiology Impression MRCP 07/18/24 16:58 IMPRESSION: MRCP appears within limits as above. Reading Location: [id number] Hepatobiliary Scan Nuclear Medicine 07/18/24 16:58 IMPRESSION: Normal HIDA scan. No evidence of acute or chronic cholecystitis. Reading Location: [facility] Physical Exam Const alert, oriented x3 and no apparent distress Constitutional Narrative: Young female, class II obesity, mildly fatigued appearing with flat affect, otherwise answering questions with short appropriate responses and sitting up comfortably in bed, in no acute distress. General Appearance: cooperative and comfortable HEENT normocephalic, head/scalp atraumatic, hearing grossly normal bilaterally, nasal mucous membranes and turbinates normal and moist oral mucous membranes Eyes PERRL, EOMs intact bilaterally and conjunctivae normal Neck full ROM Chest inspection of chest normal Resp normal respiratory effort, normal air movement, no use of accessory muscles and clear to auscultation bilaterally Cardio regular rate, regular rhythm, no murmurs and peripheral pulses 2+ throughout GI GI Narrative: Mild diffuse abdominal tenderness noted. Abdomen otherwise soft and nondistended with normal bowel sounds. Back/Spine normal ROM Extremity normal to inspection, full ROM and no pedal edema Skin no rashes or lesions noted Psych mental status grossly normal Psych Narrative: Flat affect. Assessment & Plan Assessment/Plan (1) Intractable vomiting with nausea: (2) Abdominal pain: PLAN: Plan Patient is a 23-year-old female who presented to [facility] ED on 07/18/24 with persistent abdominal pain with nausea and vomiting. 1. Persistent abdominal pain with intractable nausea and vomiting ? GI following. Unclear etiology. Has had extensive workup to this point that has been negative, see GI notes for further details. Has been treated with vonoprazan recently without improvement. Has also been treated with SSRI, and NSRI and dicyclomine as an outpatient without improvement. MRCP and HIDA scans both completed on 07/19 and are unremarkable. Further lab workup per GI is pending. Will defer further management and treatment to GI at this time. 2. Hypertension ? Continue home Toprol. 3. Reported history of POTS syndrome ? Established with cardiology in 2022 given concerns for dizziness/lightheadedness and syncope. Echo normal and 24-hour Holter monitor unremarkable. Reportedly did have a positive tilt table test in 11/2022. Not currently on any medication for this, continue outpatient follow-up. 4. Anxiety/depression ? Continue home sertraline. 5. Class II obesity ? BMI 38 on admit. Encouraged weight loss. DVT prophylaxis: Low risk, ambulate CODE STATUS: Full code, verified Expected disposition: Home, 1 to 2 days Total clinical time spent by myself addressing the patient's medical issues, reviewing all the data, and collaborating with patient's care team: 35 minutes. Charges/Coding Visit Charges Inpatient E&M: 47512 Subs Hosp L2
[2024-07-19 15:01] LABS: Erythrocyte Sedimentation Rate 6 mm/hr (0-30)
[2024-07-19 15:42] LABS: CPK Total, Creatine Kinase 124 U/L (24-195)
[2024-07-19 15:58] LABS: Ammonia 20.7 umol/L (11-51)
[2024-07-19 16:08] LABS: LDH 168 U/L (84-246)
[2024-07-19] MEDS: [UNRECOGNIZED DRUG - OTHER] PO (16:16)
[2024-07-19] MEDS: 0.9% Saline Lock 10 ML Syringe IV ×2 (17:30→22:38)
[2024-07-19] MEDS: Ondansetron 4 MG/2 ML Vial IV (17:30)
[2024-07-19] MEDS: traZODone 50 MG Tablet PO (22:37)
[2024-07-20 05:49] VITALS: BP 136/94; PULSE 81; RESP 16; TEMP 36.4; O2SAT 98
[2024-07-20] MEDS: Cosyntropin 0.25 MG in 0.9% Normal Saline (Pres. free 4 ML 150 MG IV (05:50)
[2024-07-20] MEDS: Acetaminophen 325 MG Tablet 650 MG PO (05:50)
[2024-07-20 06:23] LABS: CORTISOL AM 7.17 ug/dL (6.02-18.40)
[2024-07-20 07:24] VITALS: O2SAT 95
[2024-07-20 08:06] VITALS: BP 129/84; PULSE 80; RESP 18; TEMP 36.9; O2SAT 100
[2024-07-20] MEDS: Dicyclomine 10 MG Capsule 20 MG PO (08:14)
--- NOTE | 2024-07-20 09:24 | PCM.PN.HOSP ---
Reason for Visit Reason for Visit: Diagnoses Unspecified abdominal pain (07/18/24) Cyclical vomiting syndrome unrelated to migraine (07/18/24) Nausea with vomiting, unspecified (07/18/24) Subjective Subjective Saw patient at bedside this morning. Patient was laying back comfortably in bed, conversing normally, in no acute distress. Noted that she had mild abdominal pain this morning, slightly better than yesterday. Was given dose of oxycodone yesterday and overnight with some improvement in pain per her report. However, she notes that she also has pain relief with Bentyl at home, so oxycodone was discontinued and home Bentyl as needed was restarted. She denied any other new concerns today. Objective Data Objective Data Vital Signs: Vital Signs Temp Pulse Resp BP Pulse Ox O2 Del Method 98.4 F 80 18 129/84 H 100 Room Air 07/20/24 08:06 07/20/24 08:06 07/20/24 08:06 07/20/24 08:06 07/20/24 08:06 07/20/24 08:08 Oxygen Delivery Method Room Air Weight: 96.1 kg Body Mass Index (BMI) 38.7 Intake & Output: Intake and Output for Last 24 Hours 07/18/24 07/19/24 07/20/24 23:59 23:59 23:59 Intake Total 1010 / 1010 2447.5 / 2647.5 305 / 305 Output Total 100 / 100 Balance 1010 / 1010 2447.5 / 2647.5 205 / 205 Lab / Micro Data 07/19/24 04:43 07/19/24 04:43 Labs: Laboratory Results - last 24 hr 07/19/24 04:43: ESR 6, Lactate Dehydrogenase 168, Total Creatine Kinase 124, C-React Prot Ext Range 24.30 H, TSH 4.000 07/19/24 15:15: Ammonia 20.7, YUDY-1 Antibody TNP, SS-A/Ro IgG Antibody TNP, SS-B/La IgG Antibody TNP, Sm (Donovan) Antibody TNP, BARREL CAP SETTER Antibody TNP, Scl-70 Scleroderma Ab TNP, Double Strand DNA Ab TNP, Antichromatin Antibodies TNP, Centromere B Antibody TNP 07/20/24 05:48: Cortisol AM Sample 7.17 07/20/24 07:50: Cortisol AM Sample 36.20 H Radiography Diagnostic Testing: Radiology Impression Hepatobiliary Scan Nuclear Medicine 07/18/24 16:58 IMPRESSION: Normal HIDA scan. No evidence of acute or chronic cholecystitis. Reading Location: [id number] Physical Exam Const alert, oriented x3 and no apparent distress Constitutional Narrative: Young female, class II obesity, mildly fatigued appearing with flat affect, otherwise sitting back comfortably in bed, conversing normally, in no acute distress. Stable. General Appearance: cooperative and comfortable HEENT normocephalic, head/scalp atraumatic, hearing grossly normal bilaterally, nasal mucous membranes and turbinates normal and moist oral mucous membranes Eyes PERRL, EOMs intact bilaterally and conjunctivae normal Neck full ROM Chest inspection of chest normal Resp normal respiratory effort, normal air movement, no use of accessory muscles and clear to auscultation bilaterally Cardio regular rate, regular rhythm, no murmurs and peripheral pulses 2+ throughout GI GI Narrative: Mild diffuse abdominal tenderness noted. Abdomen otherwise soft and nondistended with normal bowel sounds. Stable. Back/Spine normal ROM Extremity normal to inspection, full ROM and no pedal edema Skin no rashes or lesions noted Psych mental status grossly normal Psych Narrative: Flat affect. Assessment & Plan Assessment/Plan (1) Intractable vomiting with nausea: (2) Abdominal pain: PLAN: Plan Patient is a 23-year-old female who presented to [facility] ED on 07/18/24 with persistent abdominal pain with nausea and vomiting. 1. Persistent abdominal pain with intractable nausea and vomiting ? GI following. Unclear etiology. Has had extensive workup to this point that has been negative, see GI notes for further details. Has been treated with vonoprazan recently without improvement. Has also been treated with SSRI, and NSRI and dicyclomine as an outpatient without improvement. MRCP and HIDA scans both completed on 07/19 and are unremarkable. Further lab workup per GI is pending. Was given a few doses of p.o. oxycodone for abdominal pain with mild improvement, however would prefer to avoid opiates for this pain so will restart home Bentyl as needed and discontinue oxycodone on 07/20. Will defer further management and treatment to GI at this time. 2. Hypertension ? Continue home Toprol. 3. Reported history of POTS syndrome ? Established with cardiology in 2022 given concerns for dizziness/lightheadedness and syncope. Echo normal and 24-hour Holter monitor unremarkable. Reportedly did have a positive tilt table test in 11/2022. Not currently on any medication for this, continue outpatient follow-up. 4. Anxiety/depression ? Continue home sertraline. 5. Class II obesity ? BMI 38 on admit. Encouraged weight loss. DVT prophylaxis: Low risk, ambulate CODE STATUS: Full code, verified Expected disposition: Home, 1 to 2 days Total clinical time spent by myself addressing the patient's medical issues, reviewing all the data, and collaborating with patient's care team: 35 minutes. Charges/Coding Visit Charges Inpatient E&M: 21804 Subs Hosp L2
[2024-07-20 09:26] VITALS: BP 129/84; PULSE 80
[2024-07-20] MEDS: Metoprolol(XL)Succ 50 MG Tablet PO (09:26)
[2024-07-20] MEDS: Sucralfate 1 GM Tablet PO (09:26)
[2024-07-20] MEDS: [UNRECOGNIZED DRUG - OTHER] PO (09:26)
[2024-07-20] MEDS: Cyanocobalamin 500 MCG Tablet 2000 MCG PO (09:26)
[2024-07-20] MEDS: Ondansetron 4 MG/2 ML Vial IV (09:27)
[2024-07-20] MEDS: Sertraline 100 MG Tablet PO (09:27)
[2024-07-20] MEDS: 0.9% Saline Lock 10 ML Syringe IV (09:27)
--- NOTE | 2024-07-20 11:21 | PCM.DC.SUM ---
Providers Date of Admission: 07/18/24 Date of Discharge: 07/20/24 Primary Care Physician: Dr. Karthik Lino MD Consultations 07/18/24 16:58 Consult: Gastroenterology Routine Consulting Provider: [facility] Reason for Consult: intractable nausea and vomiting EMERGENT Consult: No MD Notified: Yes Date Notified: 07/18/24 Time Notified: 16:54 Method of Notification: Text Reason For Visit: INTRACTABLE NAUSEA AND VOMITING Diagnosis Discharge Diagnosis (1) Intractable vomiting with nausea: Status: Acute Code(s): R11.2 - Nausea with vomiting, unspecified (2) Abdominal pain: Status: Inactive Code(s): R10.9 - Unspecified abdominal pain Medications at Discharge Home Medications mecobalamin (vitamin B12) 1,000 mcg chewable tablet 2,000 mcg PO DAILY 05/24/23 azelastine 137 mcg (0.1 %) nasal spray 2 spray intranasal BID #30 mL 02/13/24 metoprolol succinate 50 mg tablet,extended release 24 hr 50 mg PO QDAY #90 tabs 02/26/24 L norgest/E estradiol-E estrad 0.15 mg-30 mcg (84)/10 mcg(7) tabs,3mos (Jaimiess) See Rx Instructions PO .COMPLEX 03/10/24 cetirizine 10 mg capsule (Zyrtec) 10 mg PO QDAY PRN allergy symptoms 03/10/24 ondansetron 4 mg disintegrating tablet 4 mg PO Q8H PRN nausea and vomiting 03/10/24 sertraline 100 mg tablet 100 mg PO QDAY #30 tabs 05/06/24 viloxazine 200 mg capsule,extended release 24 hr (Qelbree) 400 mg (2 x 200 mg) PO QDAY #60 caps 05/06/24 trazodone 50 mg tablet 50 mg PO QHS PRN insomnia #90 tabs 05/22/24 sucralfate 1 gram tablet (Carafate) 1 g PO BID #14 tabs 06/23/24 vonoprazan 10 mg tablet 10 mg PO QDAY #30 tabs 06/24/24 dicyclomine 20 mg tablet 20 mg PO TID PRN abdominal pain #20 tabs 06/30/24 Hospital Course Operations None Procedures - (MRCP, HIDA scan) Summary of Care Provided Minutes Spent on Discharge: 35 Hospital Course: Patient is a 23-year-old female who presented to [facility] ED on 07/18/24 with persistent abdominal pain with nausea and vomiting. Hospital course as noted below. Patient discharged home in stable condition on 07/20. 1. Persistent abdominal pain with intractable nausea and vomiting ? GI followed. Unclear etiology. Has had extensive workup to this point that has been negative, see GI notes for further details. Has been treated with vonoprazan recently without improvement. Has also been treated with SSRI, and NSRI and dicyclomine as an outpatient without improvement. MRCP and HIDA scans both completed on 07/19 and are unremarkable. Further lab workup per GI pending. Was given a few doses of p.o. oxycodone for abdominal pain with mild improvement, however would prefer to avoid opiates for this pain so restarted home Bentyl as needed and discontinue oxycodone on 07/20. Okay for discharge on 07/20 with close outpatient follow-up with GI. 2. Hypertension ? Continue home Toprol. 3. Reported history of POTS syndrome ? Established with cardiology in 2022 given concerns for dizziness/lightheadedness and syncope. Echo normal and 24-hour Holter monitor unremarkable. Reportedly did have a positive tilt table test in 11/2022. Not currently on any medication for this, continue outpatient follow-up. 4. Anxiety/depression ? Continue home sertraline. 5. Class II obesity ? BMI 38 on admit. Encouraged weight loss. *Notably admitted under observation status but required greater than 24-hour observation for further management of symptoms and further lab workup. Total clinical time spent by myself addressing the patient's medical issues, reviewing all the data, and collaborating with patient's care team: 35 minutes. Physical Exam Const alert, oriented x3 and no apparent distress Constitutional Narrative: Young female, class II obesity, mildly fatigued appearing with flat affect, otherwise sitting back comfortably in bed, conversing normally, in no acute distress. Stable. General Appearance: cooperative and comfortable HEENT normocephalic, head/scalp atraumatic, hearing grossly normal bilaterally, nasal mucous membranes and turbinates normal and moist oral mucous membranes Eyes PERRL, EOMs intact bilaterally and conjunctivae normal Neck full ROM Chest inspection of chest normal Resp normal respiratory effort, normal air movement, no use of accessory muscles and clear to auscultation bilaterally Cardio regular rate, regular rhythm, no murmurs and peripheral pulses 2+ throughout GI GI Narrative: Mild diffuse abdominal tenderness noted. Abdomen otherwise soft and nondistended with normal bowel sounds. Stable. Back/Spine normal ROM Extremity normal to inspection, full ROM and no pedal edema Skin no rashes or lesions noted Psych mental status grossly normal Psych Narrative: Flat affect. Weight / BMI Weight Weight: 96.1 kg Body Mass Index (BMI) 38.7 ABG / Lab / Microbiology Data 07/19/24 04:43 07/19/24 04:43 Laboratory: Laboratory Results - last 24 hr 07/19/24 04:43: ESR 6, Lactate Dehydrogenase 168, Total Creatine Kinase 124, C-React Prot Ext Range 24.30 H, TSH 4.000 07/19/24 15:15: Ammonia 20.7, YUDY-1 Antibody TNP, SS-A/Ro IgG Antibody TNP, SS-B/La IgG Antibody TNP, Sm (Donovan) Antibody TNP, AUTO [employer]UB TRAVEL COUNSELOR Antibody TNP, Scl-70 Scleroderma Ab TNP, Double Strand DNA Ab TNP, Antichromatin Antibodies TNP, Centromere B Antibody TNP 07/20/24 05:48: Cortisol AM Sample 7.17 07/20/24 07:50: Cortisol AM Sample 36.20 H Radiography Diagnostic Testing: Radiology Impression Hepatobiliary Scan Nuclear Medicine 07/18/24 16:58 IMPRESSION: Normal HIDA scan. No evidence of acute or chronic cholecystitis. Reading Location: [id number] D/C Instructions DC O2, CPAP, BIPAP Needs Home O2 Discharge instructions: No Meaningful Use Info Meaningful Use Meaningful Use Diagnoses (Choose all that apply): None applicable Ischemic Stroke Statin Dosing Therapy Reference: STATIN DOSE THERAPY REFERENCE: * Patients > 75 years receive moderate or high dose statin therapy. * Patients 75 years or YOUNGER should receive HIGH intensity statin dose unless contraindicated. You will be required to document reason for non-treatment if statin daily dose does not meet guidelines. HIGH DOSE STATIN THERAPY DAILY Atorvastatin > than or = to 40 mg Rosuvastatin > than or = to 20 mg Amlodipine + Atorvastatin > than or = to 2.5/40 mg Ezetimibe + Simvastatin 10/80 mg Simvastatin 80mg Discharge Plan Admission Admit Date/Time: 07/18/24 16:02 Primary Reason for Your Visit: Abdominal pain with nausea and vomiting Attending Provider: Dez Rodriges Primary Care Provider: Karthik Lino Consulting Providers: Genesis Urbina Instructions Additional Instructions / Restrictions: Continue home medications as normal. The GI office will call you to follow-up on your test results and to schedule a follow-up appointment for you. Discharge Orders/Prescriptions Prescriptions: Continued mecobalamin (vitamin B12) 1,000 mcg tablet,chewable 2,000 mcg PO DAILY metoprolol succinate 50 mg tablet extended release 24 hr 50 mg PO QDAY Qty: 90 3RF L norgest/e.estradiol-e.estrad [Jaimiess] 0.15 mg-30 mcg (84)/10 mcg (7) tablets,dose pack,3 month See Rx Instructions PO .COMPLEX Rx Instructions: take 1 tablet daily following the order on blister card(s) PO ondansetron 4 mg tablet,disintegrating 4 mg PO Q8H PRN (Reason: nausea and vomiting) Zyrtec 10 mg capsule 10 mg PO QDAY PRN (Reason: allergy symptoms) sertraline 100 mg tablet 100 mg PO QDAY Qty: 30 1RF Qelbree 200 mg capsule,extended release 24hr 400 mg PO QDAY Qty: 60 1RF vonoprazan 10 mg tablet 10 mg PO QDAY Qty: 30 2RF dicyclomine 20 mg tablet 20 mg PO TID PRN (Reason: abdominal pain) Qty: 20 0RF azelastine 137 mcg (0.1 %) spray,non-aerosol 2 spray intranasal BID Qty: 30 0RF Rx Instructions: administer into each nostril sucralfate [Carafate] 1 gram tablet 1 g PO BID Qty: 14 0RF trazodone 50 mg tablet 50 mg PO QHS PRN (Reason: insomnia) Qty: 90 1RF Discontinued ondansetron 4 mg tablet,disintegrating 4 mg PO Q8H PRN PRN (Reason: Nausea) Qty: 10 0RF Referrals / Follow Up: Karthik Lino MD [Primary Care Provider] - Friend,DO Pastor [Med Staff - Active Staff] - Disposition Disposition (needs filled in before D/C Order can be placed): Home, Self Care Charges/Coding Visit Charges Inpatient E&M: 83119 Disch Hosp >30min
[2024-07-20 12:15] VITALS: BP 130/85; PULSE 86; RESP 16; TEMP 36.9; O2SAT 100
[2024-07-22 12:08] LABS: Alpha Antitrypsin Serum 203 mg/dL (100-188); Anti-Centromere B Ab <0.2 AI (0.0-0.9); Anti-Chromatin <0.2 AI (0.0-0.9); Anti-Jo <0.2 AI (0.0-0.9); Anti-Scleroderma-70 AB <0.2 AI (0.0-0.9); Anti-dsDNA Ab <1 IU/mL (0-9); RNP Ab <0.2 AI (0.0-0.9); SJOGREN'S Anti-SS-A test < 0.2 AI (0.0-0.9); SJOGREN'S Anti-SS-B test < 0.2 AI (0.0-0.9); Smith Ab <0.2 AI (0.0-0.9)
[2024-07-23 16:09] LABS: Myoglobin, Urine 2 ng/mL (0-13)
[2024-07-24 15:08] LABS: ACCA 25 units (0-90); ALCA 29 units (0-60); AMCA 48 units (0-100); gASCA 6 units (0-50)
[2024-07-25 01:07] LABS: Ceruloplasmin 38.8 mg/dL (19.0-39.0); Copper, Serum or Plasma 151 ug/dL (80-158); Cytoplasmic Ab (C-ANCA) <1:20 titer (Neg:<1:20); Gastrin, Serum 97 pg/mL (0-115); Perinuclear Ab (P-ANCA) <1:20 titer (Neg:<1:20)
[2024-07-27 00:07] LABS: Copper, 24Ur 72 ug/24 hr (3-35); Copper, Ur 9 ug/L (Not Estab.); Copper/Creat Ratio 6 ug/g creat (0-49); Creatinine (CRT) 1.45 g/L (0.30-3.00)
[2024-07-29 14:08] LABS: 5-HIAA, UR 3.8 mg/L (Undefined)
== END 2024-07-20 12:58 | disposition home or self-care (01) ==
LOC: ED 15:41 → MS3 16:05
PROVIDERS: Internal Medicine Gastroenterology; Admitting Provider Student in an Organized Health Care Education/Training Program; Emergency Provider Emergency Medicine; PCP Family Medicine; Visit Provider Hospitalist
DX: R11.2 Nausea with vomiting, unspecified (principal); E66.812 Obesity, class 2; Z68.38 Body mass index [BMI] 38.0-38.9, adult; G90.A Postural orthostatic tachycardia syndrome [POTS]; R19.7 Diarrhea, unspecified; R10.13 Epigastric pain; I10 Essential (primary) hypertension; F32.A Depression, unspecified; F41.9 Anxiety disorder, unspecified; Z79.899 Other long term (current) drug therapy
CPT/HCPCS: 36415; 74181; 78227; 80048; 80053; 80307; 82103; 82140; 82390; 82525; 82533; 82550; 82570; 82941; 83497; 83516; 83615; 83690; 83874; 84443; 84703; 85025; 85652; 86036; 86037; 86140; 86225; 86235; 86671; 96361; 96374; 96375; 96376; 99221; 99284; A9537; A4216; G0378; J0834; J2405; J2805

== ENCOUNTER → 2024-07-21 | Outpatient (CLI) | payer OTHER, SELFPAY | END | disposition home or self-care (01) | LOC: LABSPEC 13:08 | PROVIDERS: PCP Family Medicine; Referring Provider Internal Medicine Gastroenterology; Visit Provider Internal Medicine Gastroenterology | DX: Z00.00 Encounter for general adult medical examination without abnormal findings (principal) ==

== ENCOUNTER → 2024-07-23 | Outpatient (CLI) | payer OTHER, SELFPAY ==
--- NOTE | 2024-07-23 10:52 | NM_ITS ---
PROCEDURE: GASTRIC EMPTYING STUDY 07/23/2024 REASON FOR EXAM: EARLY SATIEITY, BLOATING COMPARISON: 2 slices of none. TECHNIQUE: The patient ingested a standard meal of oatmeal.. Anterior and posterior planar images of the upper abdomen were obtained for 1 minute immediately following the meal at 1 minute intervals for a total of 60 minutes. If more than 10% of the activity persisted within the stomach. Regions of interest were drawn, and a geometric mean was used to calculate a [id number]. Medications taken in the past 24 hours that may affect gastric emptying: None RADIOPHARMACEUTICAL: 1.2 mCi of Technetium Sulfur Colloid. FINDINGS: Percent activity remaining in stomach: 1 hour 41% % (normal 37-90%) NM/Gastric Emptying Study IMPRESSION: Normal gastric emptying study with 41% activity remaining in the stomach at 1 h our. Reading Location: [place] [id number]
== END | disposition home or self-care (01) ==
LOC: NM 10:48
PROVIDERS: PCP Family Medicine; Referring Provider Family Medicine; Visit Provider Family Medicine
DX: R68.81 Early satiety (principal)
CPT/HCPCS: 78264; A9541

== ENCOUNTER → 2024-07-25 | Outpatient (CLI) | payer OTHER, SELFPAY ==
[2024-07-25 13:10] LABS: Hemoglobin A1c 5.5 % (<=5.6)
== END | disposition home or self-care (01) ==
LOC: LAB 11:33
PROVIDERS: PCP Family Medicine
DX: R10.13 Epigastric pain (principal); E87.29 Other acidosis
CPT/HCPCS: 36415; 83036

== ENCOUNTER 2024-08-01 03:38 | Emergency (ER) | payer OTHER, SELFPAY ==
[2024-08-01 03:38] VITALS: BP 145/90; PULSE 85; RESP 17; TEMP 37; O2SAT 100; BMI 39.6
[2024-08-01 03:40] VITALS: BP 145/90; PULSE 86; RESP 18; TEMP 37; O2SAT 100
--- NOTE | 2024-08-01 04:00 | ED.VIS.GI ---
HPI HPI - GI History of Present Illness Chief Complaint: Abd Pain Informant: patient Narrative Narrative: Patient is 23-year-old female with history of POTS, depression, anxiety and biliary dyskinesia who is 2 days status post laparoscopic cholecystectomy. Her surgery was for by Dr. Bai at [facility]. She is presenting with worsening postoperative abdominal pain. Patient states that she has been taking 5 mg Percocet every 6 hours as well as 400 mg ibuprofen every 3 hours. Despite that she still having significant pain in her abdomen. She states it is worse around her umbilical incision site as well as in her right upper quadrant. She states the right upper quadrant pain is worse than before she had the surgery. She has some associated nausea but no vomiting. Has not had a bowel movement since the surgery. Has been taking a stool softener with her pain medication. Denies any prior gallstones. Notes that movement and breathing seem to make the pain worse. She ate dinner and did not think it affected her pain. No fevers or chills reported. Denies any urinary symptoms. I was unable to get a hold of her surgeon so came in for further evaluation. No other complaints or concerns reported at this time. [facility] Medical History Postural orthostatic tachycardia syndrome [POTS] Anxiety Home Medications ?Medication ?Instructions ?Recorded ?Last Taken ?Type mecobalamin (vitamin B12) 1,000 2,000 mcg PO DAILY 05/24/23 Unknown History mcg chewable tablet azelastine 137 mcg (0.1 %) nasal 2 spray intranasal BID #30 mL 02/13/24 Unknown Rx spray metoprolol succinate 50 mg 50 mg PO QDAY #90 tabs 02/26/24 Unknown Rx tablet,extended release 24 hr L norgest/E estradiol-E estrad See Rx Instructions PO .COMPLEX 03/10/24 Unknown History 0.15 mg-30 mcg (84)/10 mcg(7) tabs,3mos (Jaimiess) cetirizine 10 mg capsule (Zyrtec) 10 mg PO QDAY PRN allergy symptoms 03/10/24 Unknown History sertraline 100 mg tablet 100 mg PO QDAY #30 tabs 05/06/24 Unknown Rx viloxazine 200 mg capsule,extended 400 mg (2 x 200 mg) PO QDAY #60 05/06/24 Unknown Rx release 24 hr (Qelbree) caps trazodone 50 mg tablet 50 mg PO QHS PRN insomnia #90 tabs 05/22/24 Unknown Rx sucralfate 1 gram tablet (Carafate) 1 g PO BID #14 tabs 06/23/24 Unknown Rx vonoprazan 10 mg tablet 10 mg PO QDAY #30 tabs 06/24/24 Unknown Rx dicyclomine 20 mg tablet 20 mg PO TID PRN abdominal pain 10 07/20/24 Unknown Rx days #30 tabs ondansetron 4 mg disintegrating 4 mg PO Q12H PRN nausea and 07/25/24 Unknown Rx tablet vomiting 10 days #30 tabs promethazine 12.5 mg tablet 12.5 mg PO Q6H PRN nausea and 07/25/24 Unknown Rx vomiting #30 tabs ketorolac 10 mg tablet 10 mg PO Q6H PRN pain 5 days #20 08/01/24 Unknown Rx tabs Allergy/AdvReac Type Severity Reaction Status Date / Time cyclobenzaprine Allergy Mild Rash Verified 08/01/24 03:38 Family History Other Alcoholism Arthritis Cancer Diabetes Hypertension Obesity Seizures Social History household members: significant other Smoking Status: Never smoker alcohol intake: current alcohol intake frequency: holidays/special occasions only substance use type: does not use caffeine: Yes (x2 week) ROS ROS ED Constitutional Constitutional ED: Denies chills or fever(s) Cardiovascular Cardiovascular: Denies chest pain Respiratory/Chest Respiratory/Chest: Denies cough or dyspnea Gastrointestinal Gastrointestinal: Reports abdominal pain and nausea; Denies vomiting Genitourinary Genitourinary ED: Denies dysuria Musculoskeletal Musculoskeletal: Denies back pain Psychiatric Psychiatric: Reports anxiety Hematologic/Lymphatic Hematologic/Lymphatic: Denies easy bleeding or easy bruising EXAM Physical Exam Const Vital Signs: 08/01/24 03:38 08/01/24 03:40 08/01/24 04:16 Temperature 98.6 F 98.6 F Temperature Source Oral Oral Pulse Rate 85 86 86 Respiratory Rate 17 18 18 Blood Pressure 145/90 H 145/90 H 130/82 H Blood Pressure Mean 108 108 98 Pulse Ox 100 100 98 Oxygen Delivery Method Room Air Room Air Room Air 08/01/24 05:15 Temperature Temperature Source Pulse Rate 84 Respiratory Rate 16 Blood Pressure 120/83 H Blood Pressure Mean 95 Pulse Ox 99 Oxygen Delivery Method Room Air Positive well nourished and well developed General Appearance ED: well developed and NAD HEENT Reports moist mucous membranes Eyes PERRL General Eye ED: Negative for scleral icterus Neck supple Resp normal respiratory effort and clear to auscultation bilaterally Cardio regular rate and regular rhythm GI non-distended GI Narrative: Laparoscopic surgical incisions present. They are clean and dry. There are some slight ecchymosis around the umbilical incision site. No associated drainage or erythematous changes. Auscultation: normoactive bowel sounds Palpation: soft and tender RUQ and periumbilical; Negative for guarding or rigid Neuro Sensorium / Orientation: alert, oriented to person, oriented to place and oriented to time Motor Exam: Negative for general weakness Psych thought process normal Mood & Affect: anxious Skin Skin Narrative: Surgical incisions well-approximated, no associated drainage or surrounding cellulitic changes. MDM MDM MDM Narrative Medical decision making narrative: Patient evaluated for postoperative abdominal pain. Patient had elective laparoscopic cholecystectomy 2 days ago for biliary dyskinesia. Differential includes postoperative pain, postoperative complication, intra-abdominal infection and choledocholithiasis as well as dehydration. Patient overall is well-appearing. Pain seems to be centered more surgically at her incision sites and the liver bed where her gallbladder was removed. Is given IV morphine, Zofran and fluids in the emergency room. She does not have a leukocytosis and her hemoglobin is normal suspicion for any internal bleeding. Abdomen is not peritoneal. CMP largely normal. She does have a mild transaminitis with a normal total bilirubin. Suspect this is a normal postoperative change. Lipase is normal. Urinalysis does not show any signs of dehydration or infection. is negative. Patient does have improvement of pain with morphine but continues to have pain. I did discuss with on-call surgery at [facility] and reviewed the labs with her. She agrees that this likely is pain control but states that the patient has worsening pains or any other concerns would recommend further imaging. Does recommend starting her on Toradol orally for further pain control as well. Reevaluated patient. She is resting. She states she feels like she could sleep some now. I will be given a dose of oxycodone prior to discharge. Discussed about expected postoperative pain and if her pain is progressing/worsening or she develops a fever she should immediately return to the emergency room for repeat evaluation we can consider imaging at that time. Patient does question about her dizziness. Discussed that oxycodone can cause dizziness and she is likely more prone to it because of her history of POTS. She was given IV fluids in the emergency room. Patient discharged home with her significant other. Given return precautions. She verbalized agreement understands plan. Discharged home in improved and stable condition peer Lab Data Attestation: I reviewed the patient's lab results. Labs: Laboratory Results - last 24 hr 08/01/24 08/01/24 03:43 04:09 WBC 7.6 RBC 4.71 Hgb 12.7 Hct 39.7 MCV 84.3 MCH 27.0 MCHC 32.0 RDW Std Deviation 48.1 H RDW Coeff of Floridalma 15.6 H Plt Count 351 MPV 10.5 Immature Gran % (Auto) 0.300 Neut % (Auto) 48.7 Lymph % (Auto) 40.2 [place] % (Auto) 9.2 Eos % (Auto) 0.8 Baso % (Auto) 0.8 Absolute Neuts (auto) 3.7 Absolute Lymphs (auto) 3.06 Nucleated RBC % 0 Sodium 138 Potassium 3.7 Chloride 103 Carbon Dioxide 23.5 Anion Gap 12 BUN 7 Creatinine 0.85 Estim Creat Clear Calc 113.84 Est GFR (MDRD) Non-Af 100 BUN/Creatinine Ratio 8.2 L Glucose 94 Calcium 8.9 Total Bilirubin 0.57 Direct Bilirubin 0.34 H AST 130 H ALT 96 H Alkaline Phosphatase 144 H Total Protein 6.9 Albumin 4.0 Globulin 2.9 Lipase 14 Serum , Qual NEGATIVE Urine Color Yellow Urine Clarity Sl. Cloudy Urine pH 7.0 Ur Specific [place] 1.010 Urine Protein TNP Urine Glucose (UA) Normal Urine Ketones Negative Urine Occult Blood Negative Urine Nitrite Negative Urine Bilirubin Negative Urine Urobilinogen Normal Ur Leukocyte Esterase Negative Urine RBC 0-5 SEEN Urine WBC 0 SEEN Ur Squamous Epith Cells 0-5 SEEN Urine Bacteria 0 SEEN Urine Mucus 0 SEEN U Random Total Protein < 6.0 Discharge Plan Triage Chief Complaint: Abd Pain ED Provider: Thalia Campbell Dx/Rx/DC Orders Clinical Impression: Postoperative abdominal pain, Status post laparoscopic cholecystectomy Instructions: ED Post Op Wound Check, Pain Prescriptions: New ketorolac 10 mg tablet 10 mg PO Q6H PRN (Reason: pain) 5 Days Qty: 20 0RF No Action mecobalamin (vitamin B12) 1,000 mcg tablet,chewable 2,000 mcg PO DAILY metoprolol succinate 50 mg tablet extended release 24 hr 50 mg PO QDAY Qty: 90 3RF L norgest/e.estradiol-e.estrad [Jaimiess] 0.15 mg-30 mcg (84)/10 mcg (7) tablets,dose pack,3 month See Rx Instructions PO .COMPLEX Rx Instructions: take 1 tablet daily following the order on blister card(s) PO Zyrtec 10 mg capsule 10 mg PO QDAY PRN (Reason: allergy symptoms) sertraline 100 mg tablet 100 mg PO QDAY Qty: 30 1RF Qelbree 200 mg capsule,extended release 24hr 400 mg PO QDAY Qty: 60 1RF vonoprazan 10 mg tablet 10 mg PO QDAY Qty: 30 2RF promethazine 12.5 mg tablet 12.5 mg PO Q6H PRN (Reason: nausea and vomiting) Qty: 30 0RF ondansetron 4 mg tablet,disintegrating 4 mg PO Q12H PRN (Reason: nausea and vomiting) 10 Days Qty: 30 0RF azelastine 137 mcg (0.1 %) spray,non-aerosol 2 spray intranasal BID Qty: 30 0RF Rx Instructions: administer into each nostril sucralfate [Carafate] 1 gram tablet 1 g PO BID Qty: 14 0RF dicyclomine 20 mg tablet 20 mg PO TID PRN (Reason: abdominal pain) 10 Days Qty: 30 0RF trazodone 50 mg tablet 50 mg PO QHS PRN (Reason: insomnia) Qty: 90 1RF Primary Care Provider: Karthik Lino Referrals: Karthik Lino MD [Primary Care Provider] - Print Language: Spanish Disposition Disposition: Home, Self Care
[2024-08-01 04:06] LABS: Absolute Lymphocyte Count 3.06 X10^3/uL (0.83-4.51); Absolute Neutrophil Count 3.7 X10^3/uL (2.0-7.7); Basophil# 0.06 X10^3/uL; Basophil% 0.8 % (0-1); Eosinophil# 0.06 X10^3/uL; Eosinophils% 0.8 % (0-5); Hematocrit 39.7 % (37-47); Hemoglobin 12.7 g/dL (12.0-15.0); Lymphocyte # 3.06 X10^3/ul (0.83-4.51); Lymphocyte % 40.2 % (19-41); Mean Corpuscular Volume 84.3 fL (81-99); Mean Platelet Vol. 10.5 fl (6.2-12.0); Monocyte% 9.2 % (0-10); NRBC Flagged by Analyzer 0 % (0-5); Neutrophil # 3.72 X10^3/uL (2.7-7.7); Neutrophil % 48.7 % (47-70); Platelet Count 351 K/mm3 (150-450); RBC Distribution Width CV 15.6 % (11.6-14.6); RBC Distribution Width SD 48.1 fl (35.1-43.9); Red Blood Count 4.71 M/mm3 (4.2-5.4); White Blood Count 7.6 K/mm3 (4.4-11.0)
[2024-08-01] MEDS: Morphine 4 MG/ML Syringe IV (04:13)
[2024-08-01] MEDS: 0.9% Normal Saline (1000mL) 1,000 ML 999 ML IV (04:13)
[2024-08-01] MEDS: Ondansetron 4 MG/2 ML Vial IV (04:13)
[2024-08-01 04:15] LABS: Bacteria 0 SEEN /hpf (None Seen); Mucous, Urine 0 SEEN /hpf (<or=2+); White Blood Cells 0 SEEN /hpf (0-5)
[2024-08-01 04:16] VITALS: BP 130/82; PULSE 86; RESP 18; O2SAT 98
[2024-08-01 04:16] LABS: Color, Urine Yellow (Yellow); Glucose, Dipstick Normal (Normal); Ketone-Dipstick Negative (Negative); Leukocyte Esterase-Dipstick Negative /ul (Negative); Nitrite-Dipstick Negative (Negative); Occult Blood-Urine Negative /ul (Negative); Urine Bilirubin Dipstick Negative (Negative); Urine Clarity Sl. Cloudy (Clear); Urine Urobilinogen Normal (Normal)
[2024-08-01 04:17] LABS: Internal QC Validated? YES +Cl - CLEAR BKGD; Pregnancy, Serum, hCG Quali. NEGATIVE Negative
[2024-08-01 04:24] LABS: AST(SGOT) 130 U/L (<=31); Alanine Aminotransfer ALT/SGPT 96 U/L (<=34); Alkaline Phosphatase 144 U/L (35-104); Anion Gap 12 (5-15); BUN 7 mg/dL (4-19); BUN/Creat Ratio 8.2 RATIO (10-20); Bilirubin, Direct 0.34 mg/dL (0.00-0.30); Calcium,Total 8.9 mg/dL (7.6-11.0); Carbon Dioxide 23.5 mmol/L (21.0-32.0); Chloride 103 mmol/L (98-108); Creatinine, Serum 0.85 mg/dL (0.70-1.20); EST Glomerular Filtration Rate 100 (>60); Estimated Creatinine Clearance 113.84 ml/min (50-250); Globulin 2.9 g/dL (2.2-4.2); Glucose 94 mg/dL (70-99); Lipase 14 U/L (13-75); Potassium 3.7 mmol/L (3.3-5.1); Protein, Total 6.9 g/dL (5.9-8.4); Sodium Level 138 mmol/L (133-145); Total Bilirubin 0.57 mg/dL (0.00-1.30)
[2024-08-01 04:29] LABS: Red Blood Cells-Urine 0-5 SEEN /hpf (0-5); Squamous Epithelial Cells - UA 0-5 SEEN /hpf (5-10)
[2024-08-01 04:35] LABS: Protein, Urine (Random) < 6.0 mg/dL (0.0-12.0)
[2024-08-01] MEDS: Ketorolac 15 MG/ML Vial IV (05:13)
[2024-08-01 05:15] VITALS: BP 120/83; PULSE 84; RESP 16; O2SAT 99
[2024-08-01] MEDS: oxyCODONE 5 MG Tablet PO (06:09)
[2024-08-01 06:10] VITALS: BP 134/75; PULSE 95; RESP 18; TEMP 36.8; O2SAT 97
== END 2024-08-01 06:14 | disposition home or self-care (01) ==
PROVIDERS: Emergency Provider Emergency Medicine; PCP Family Medicine; Visit Provider Emergency Medicine
DX: G89.18 Other acute postprocedural pain (principal); R10.9 Unspecified abdominal pain
CPT/HCPCS: 80048; 80076; 81001; 83690; 84156; 84703; 85025; 96361; 96374; 96375; 96376; 99283; A4216; J2405

== ENCOUNTER → 2024-08-28 | Outpatient (CLI) | payer OTHER, SELFPAY ==
--- NOTE | 2024-08-28 10:23 | RAD_ITS ---
PROCEDURE: ACUTE ABDOMEN INC CHEST 08/28/2024 REASON FOR EXAM: CONSTIPATION TECHNIQUE: Single view chest plus three-view supine and upright views of the abdomen. COMPARISON: PA and lateral chest of 02/13/2024. RAD/Acute Abdomen Inc Chest IMPRESSION: A moderate stool burden is noted. The bowel-gas pattern is otherwise unremarkable. No mass or mass effect is seen. Lungs appear clear throughout. No pleural effusion or pneumothorax is noted. The cardiomediastinal silhouette is within the normal range. No acute osseous process is seen. Reading Location: [place] [address]
== END | disposition home or self-care (01) ==
LOC: MTRAD 10:22
PROVIDERS: PCP Family Medicine; Referring Provider Family Medicine; Visit Provider Family Medicine
DX: K59.00 Constipation, unspecified (principal)
CPT/HCPCS: 74022

== ENCOUNTER 2024-09-05 20:29 | Emergency (ER) | payer OTHER, SELFPAY ==
[2024-09-05 20:30] VITALS: BP 140/100; PULSE 73; RESP 18; TEMP 36.7; O2SAT 100; BMI 41.0
--- NOTE | 2024-09-05 20:43 | EX.ED.DYSGE1 ---
HPI History of Present Illness Chief Complaint: Dizziness Informant: patient Narrative Narrative: 23-year-old female presenting to the emergency department with vomiting. Patient states over the past couple days she has felt increasingly weak/fatigued. Today she notes nausea has had intermittent episodes of dizziness where she feels that the room spinning around her with blurry vision. She notes that this feels distinctly different than her POTS sensation. She notes she really has not ate yet today has been trying to drink fluids a pop and water. Over the past couple hours significant nausea and in the last hour of vomiting. She notes that since her prior cholecystectomy bowel movements have been very able but no distinct diarrhea today. She denies fever or myalgias. No rashes. No leg swelling. No history of pancreatitis. [facility] Medical History Postural orthostatic tachycardia syndrome [POTS] Anxiety Home Medications ?Medication ?Instructions ?Recorded ?Last Taken ?Type mecobalamin (vitamin B12) 1,000 2,000 mcg PO DAILY 05/24/23 Unknown History mcg chewable tablet azelastine 137 mcg (0.1 %) nasal 2 spray intranasal BID #30 mL 02/13/24 Unknown Rx spray metoprolol succinate 50 mg 50 mg PO QDAY #90 tabs 02/26/24 Unknown Rx tablet,extended release 24 hr L norgest/E estradiol-E estrad See Rx Instructions PO .COMPLEX 03/10/24 Unknown History 0.15 mg-30 mcg (84)/10 mcg(7) tabs,3mos (Jaimiess) cetirizine 10 mg capsule (Zyrtec) 10 mg PO QDAY PRN allergy symptoms 03/10/24 Unknown History sertraline 100 mg tablet 100 mg PO QDAY #30 tabs 05/06/24 Unknown Rx viloxazine 200 mg capsule,extended 400 mg (2 x 200 mg) PO QDAY #60 05/06/24 Unknown Rx release 24 hr (Qelbree) caps trazodone 50 mg tablet 50 mg PO QHS PRN insomnia #90 tabs 05/22/24 Unknown Rx vonoprazan 10 mg tablet 10 mg PO QDAY #30 tabs 06/24/24 Unknown Rx dicyclomine 20 mg tablet 20 mg PO TID PRN abdominal pain 10 07/20/24 Unknown Rx days #30 tabs ondansetron 4 mg disintegrating 4 mg PO Q12H PRN nausea and 07/25/24 Unknown Rx tablet vomiting 10 days #30 tabs promethazine 12.5 mg tablet 12.5 mg PO Q6H PRN nausea and 07/25/24 Unknown Rx vomiting #30 tabs Allergy/AdvReac Type Severity Reaction Status Date / Time cyclobenzaprine Allergy Mild Rash Verified 09/05/24 20:31 Family History Other Alcoholism Arthritis Cancer Diabetes Hypertension Obesity Seizures Surgical History S/P cholecystectomy Social History household members: significant other Smoking Status: Never smoker alcohol intake: current alcohol intake frequency: holidays/special occasions only substance use type: does not use caffeine: Yes (x2 week) ROS ROS ED ROS Narrative Generalized fatigue intermittent dizziness Constitutional Constitutional ED: Denies chills or weight loss Eyes Eyes: Denies change in vision or diplopia ENT ENT ED: Denies ear pain, rhinorrhea or sore throat Cardiovascular Cardiovascular: Denies chest pain, orthopnea, palpitations or racing heartbeat Respiratory/Chest Respiratory/Chest: Denies cough, dyspnea or orthopnea Gastrointestinal Gastrointestinal: Reports nausea and vomiting; Denies abdominal pain or diarrhea Genitourinary Genitourinary ED: Denies dysuria, hematuria or urinary frequency Musculoskeletal Musculoskeletal: Denies arthralgias or myalgias Integumentary Denies abscess or rash Neurologic Neurologic: Denies headache(s) or weakness Psychiatric Psychiatric: Denies anxiety, depression, suicidal ideation or suicidal thoughts Endocrine Endocrinology: Denies polydipsia, polyphagia or polyuria Allergic/Immunologic Allergic/Immunologic ED: Denies mouth swelling, tongue swelling or urticaria EXAM Physical Exam Const Vital Signs: 09/05/24 20:30 09/05/24 22:29 Temperature 98.1 F Temperature Source Oral Pulse Rate 73 72 Respiratory Rate 18 16 Blood Pressure 140/100 H 115/64 Blood Pressure Mean 113 81 Pulse Ox 100 97 Oxygen Delivery Method Room Air Room Air Positive well nourished, well developed and obese General Appearance ED: well developed and NAD Nutritional Appearance: obese HEENT Reports normocephalic, head/scalp atraumatic and moist mucous membranes Eyes PERRL and EOMs intact bilaterally Neck no lymphadenopathy, supple and no JVD Resp normal respiratory effort and clear to auscultation bilaterally Cardio regular rate, regular rhythm and no murmurs GI normal to inspection, nondistended, normoactive bowel sounds and non-tender Palpation: soft Back/Spine no CVA tenderness and normal ROM Extremity normal to inspection General Extremety ED: Negative for edema General Extremity: Negative for edema Neuro oriented x3 and CN's II-XII intact bilaterally Sensorium / Orientation: alert Motor Exam: strength 5/5 throughout Psych mental status grossly normal Mood & Affect: Negative for depressed or tearful Skin no rashes or lesions noted and no wounds MDM MDM MDM Narrative Medical decision making narrative: Differential diagnosis includes but not limited to biliary colic choledocholithiasis pancreatitis electrolyte abnormalities dehydration viral syndrome anemia IV established patient received IV fluids and Zofran. Basic blood work was obtained and reviewed. White count is at 9 hemoglobin 11.1 with a platelet count of 302. Liver enzymes within normal limits lipase 16 test is negative creatinine 0.8 with a BUN of 15 anion gap 12 serum CO2 22.3 normal sodium potassium urinalysis with no overt infection specific gravity noted to be 1.025. At this point I think the patient can be discharged home with the above workup. No further vomiting. She has antiemetics at home in the form she believes of both Zofran and Phenergan. Patient will follow-up if not improving return if worsening advance diet as tolerated History & Record Review Discussion w/independent historian: Patient and Significant other Lab Data Attestation: I reviewed the patient's lab results. Labs: Laboratory Results - last 24 hr 09/05/24 09/05/24 20:51 22:06 WBC 9.0 RBC 4.08 L Hgb 11.1 L Hct 35.1 L MCV 86.0 MCH 27.2 MCHC 31.6 L RDW Std Deviation 44.8 H RDW Coeff of [place]ma 14.3 Plt Count 302 MPV 10.2 Immature Gran % (Auto) 0.300 Neut % (Auto) 72.3 H Lymph % (Auto) 19.7 [place] % (Auto) 5.8 Eos % (Auto) 1.2 Baso % (Auto) 0.7 Absolute Neuts (auto) 6.5 Absolute Lymphs (auto) 1.78 Nucleated RBC % 0 Sodium 136 Potassium 4.0 Chloride 102 Carbon Dioxide 22.3 Anion Gap 12 BUN 15 Creatinine 0.81 Estim Creat Clear Calc 121.66 Est GFR (MDRD) Non-Af 106 BUN/Creatinine Ratio 18.2 Glucose 99 Calcium 8.7 Total Bilirubin 0.22 Direct Bilirubin 0.11 AST 22 ALT 15 Alkaline Phosphatase 100 Total Protein 6.8 Albumin 4.1 Globulin 2.7 Lipase 16 Serum , Qual NEGATIVE Urine Color Yellow Urine Clarity Cloudy Urine pH 6.0 Ur Specific [place] 1.025 Urine Protein 100 H Urine Glucose (UA) Normal Urine Ketones 5 H Urine Occult Blood Negative Urine Nitrite Negative Urine Bilirubin Negative Urine Urobilinogen 1 H Ur Leukocyte Esterase Negative Urine RBC 0-5 SEEN Urine WBC 0-5 SEEN Ur Squamous Epith Cells 0-5 SEEN Urine Bacteria 0 SEEN Urine Mucus 0 SEEN Discharge Plan Triage Chief Complaint: Dizziness ED Provider: Ariel Osei Dx/Rx/DC Orders Clinical Impression: Vomiting, Dizziness, Fatigue Instructions: ED Vomiting (Adult) Prescriptions: No Action mecobalamin (vitamin B12) 1,000 mcg tablet,chewable 2,000 mcg PO DAILY metoprolol succinate 50 mg tablet extended release 24 hr 50 mg PO QDAY Qty: 90 3RF L norgest/e.estradiol-e.estrad [Jaimiess] 0.15 mg-30 mcg (84)/10 mcg (7) tablets,dose pack,3 month See Rx Instructions PO .COMPLEX Rx Instructions: take 1 tablet daily following the order on blister card(s) PO Zyrtec 10 mg capsule 10 mg PO QDAY PRN (Reason: allergy symptoms) sertraline 100 mg tablet 100 mg PO QDAY Qty: 30 1RF Qelbree 200 mg capsule,extended release 24hr 400 mg PO QDAY Qty: 60 1RF vonoprazan 10 mg tablet 10 mg PO QDAY Qty: 30 2RF promethazine 12.5 mg tablet 12.5 mg PO Q6H PRN (Reason: nausea and vomiting) Qty: 30 0RF ondansetron 4 mg tablet,disintegrating 4 mg PO Q12H PRN (Reason: nausea and vomiting) 10 Days Qty: 30 0RF azelastine 137 mcg (0.1 %) spray,non-aerosol 2 spray intranasal BID Qty: 30 0RF Rx Instructions: administer into each nostril dicyclomine 20 mg tablet 20 mg PO TID PRN (Reason: abdominal pain) 10 Days Qty: 30 0RF trazodone 50 mg tablet 50 mg PO QHS PRN (Reason: insomnia) Qty: 90 1RF Primary Care Provider: Karthik Lino Referrals: Karthik Lino MD [Primary Care Provider] - 3-5 Days if not improving Print Language: Wallisian Disposition Disposition: Home, Self Care
[2024-09-05] MEDS: 0.9% Normal Saline (1000mL) 1,000 ML 1000 ML IV (20:56)
[2024-09-05] MEDS: Ondansetron 4 MG/2 ML Vial IV (20:56)
[2024-09-05 20:58] LABS: Absolute Lymphocyte Count 1.78 X10^3/uL (0.83-4.51); Absolute Neutrophil Count 6.5 X10^3/uL (2.0-7.7); Basophil# 0.06 X10^3/uL; Basophil% 0.7 % (0-1); Eosinophil# 0.11 X10^3/uL; Eosinophils% 1.2 % (0-5); Hematocrit 35.1 % (37-47); Hemoglobin 11.1 g/dL (12.0-15.0); Lymphocyte # 1.78 X10^3/ul (0.83-4.51); Lymphocyte % 19.7 % (19-41); Mean Corp Hgb Conc 31.6 g/dL (32-36); Mean Corpuscular Hgb 27.2 pg (27.0-32.0); Mean Platelet Vol. 10.2 fl (6.2-12.0); Monocyte# 0.52 X10^3/uL; Monocyte% 5.8 % (0-10); NRBC Flagged by Analyzer 0 % (0-5); Neutrophil # 6.53 X10^3/uL (2.7-7.7); Neutrophil % 72.3 % (47-70); Platelet Count 302 K/mm3 (150-450); RBC Distribution Width CV 14.3 % (11.6-14.6); RBC Distribution Width SD 44.8 fl (35.1-43.9); Red Blood Count 4.08 M/mm3 (4.2-5.4)
[2024-09-05 21:28] LABS: Internal QC Validated? YES +Cl - CLEAR BKGD; Pregnancy, Serum, hCG Quali. NEGATIVE Negative; Record Kit Lot#, Serum Preg. 947241
[2024-09-05 21:40] LABS: Lipase 16 U/L (13-75)
[2024-09-05 21:52] LABS: AST(SGOT) 22 U/L (<=31); Alanine Aminotransfer ALT/SGPT 15 U/L (<=34); Albumin, Serum 4.1 g/dL (3.5-5.0); Alkaline Phosphatase 100 U/L (35-104); Anion Gap 12 (5-15); BUN 15 mg/dL (4-19); BUN/Creat Ratio 18.2 RATIO (10-20); Bilirubin, Direct 0.11 mg/dL (0.00-0.30); Calcium,Total 8.7 mg/dL (7.6-11.0); Carbon Dioxide 22.3 mmol/L (21.0-32.0); Chloride 102 mmol/L (98-108); Creatinine, Serum 0.81 mg/dL (0.70-1.20); EST Glomerular Filtration Rate 106 (>60); Estimated Creatinine Clearance 121.66 ml/min (50-250); Globulin 2.7 g/dL (2.2-4.2); Glucose 99 mg/dL (70-99); Protein, Total 6.8 g/dL (5.9-8.4); Sodium Level 136 mmol/L (133-145); Total Bilirubin 0.22 mg/dL (0.00-1.30)
[2024-09-05 22:09] LABS: Bacteria 0 SEEN /hpf (None Seen); Mucous, Urine 0 SEEN /hpf (<or=2+)
[2024-09-05 22:28] LABS: Color, Urine Yellow (Yellow); Glucose, Dipstick Normal (Normal); Ketone-Dipstick 5 mg/dl (Negative); Leukocyte Esterase-Dipstick Negative /ul (Negative); Nitrite-Dipstick Negative (Negative); Occult Blood-Urine Negative /ul (Negative); Protein-Dipstick 100 mg/dl (Negative); Specific Gravity, Urine 1.025 (1.002-1.030); Urine Bilirubin Dipstick Negative (Negative); Urine Clarity Cloudy (Clear); Urine Urobilinogen 1 mg/dl (Normal)
[2024-09-05 22:29] VITALS: BP 115/64; PULSE 72; RESP 16; O2SAT 97
[2024-09-05 22:34] LABS: Red Blood Cells-Urine 0-5 SEEN /hpf (0-5); Squamous Epithelial Cells - UA 0-5 SEEN /hpf (5-10); White Blood Cells 0-5 SEEN /hpf (0-5)
[2024-09-05 23:13] VITALS: BP 127/61; PULSE 70; RESP 18; TEMP 36.6; O2SAT 96
== END 2024-09-05 23:17 | disposition home or self-care (01) ==
PROVIDERS: Emergency Provider Emergency Medicine; PCP Family Medicine; Visit Provider Emergency Medicine
DX: R11.10 Vomiting, unspecified (principal); R42 Dizziness and giddiness; R53.83 Other fatigue; E66.9 Obesity, unspecified
CPT/HCPCS: 80048; 80076; 81001; 83690; 84703; 85025; 96361; 96374; 96376; 99284; A4216; J2405

== ENCOUNTER → 2024-09-25 | Outpatient (CLI) | payer OTHER, SELFPAY ==
--- NOTE | 2024-09-25 10:29 | RAD_ITS ---
PROCEDURE: ACUTE ABDOMEN INC CHEST 09/25/2024 REASON FOR EXAM: CONSTIPATION TECHNIQUE: Five view acute abdominal series including PA chest and supine and upright abdomen views. COMPARISON: Prior acute abdominal series of 08/28/2024. RAD/Acute Abdomen Inc Chest IMPRESSION: Lungs appear clear throughout. No pleural effusion or pneumothorax is seen. The cardiomediastinal silhouette is within the normal range. No evidence of pneumoperitoneum. A moderate stool burden is seen. The bowel-gas pattern is otherwise unremarkable. No mass or mass effect is seen Reading Location: [address]
== END | disposition home or self-care (01) ==
LOC: MTRAD 10:29
PROVIDERS: PCP Family Medicine; Referring Provider Family Medicine; Visit Provider Family Medicine
DX: R10.9 Unspecified abdominal pain (principal)
CPT/HCPCS: 74022

== ENCOUNTER → 2024-10-09 | Outpatient (CLI) | payer OTHER, SELFPAY ==
[2024-10-09 11:33] LABS: ALB/GLOB Ratio 1.4 RATIO (0.9-2.4); AST(SGOT) 21 U/L (<=31); Alanine Aminotransfer ALT/SGPT 16 U/L (<=34); Albumin, Serum 4.2 g/dL (3.5-5.0); Alkaline Phosphatase 108 U/L (35-104); Anion Gap 14 (5-15); BUN 12 mg/dL (4-19); BUN/Creat Ratio 17.4 RATIO (10-20); Calcium,Total 9.1 mg/dL (7.6-11.0); Carbon Dioxide 23.3 mmol/L (21.0-32.0); Chloride 103 mmol/L (98-108); Creatinine, Serum 0.71 mg/dL (0.70-1.20); EST Glomerular Filtration Rate 123 (>60); Globulin 2.9 g/dL (2.2-4.2); Glucose 91 mg/dL (70-99); Potassium 3.8 mmol/L (3.3-5.1); Protein, Total 7.1 g/dL (5.9-8.4); Sodium Level 141 mmol/L (133-145); Total Bilirubin 0.23 mg/dL (0.00-1.30); Vitamin B12 327 pg/mL (180-914); Vitamin D,25 Hydroxy 18.6 ng/mL (30-100)
[2024-10-09 12:32] LABS: Cholesterol 209 mg/dL (<=190); High Density Lipoprotein 59 mg/dL; Low Density Lipoprotein Calc. 110 mg/dL; Triglycerides 201 mg/dL; Very Low Density Lipoprotein 40 mg/dL (5-40); cholesterol:hdl ratio screen 3.57
[2024-10-10 16:08] LABS: Anti-Thyroglobulin AB < 1.0 IU/mL (0.0-0.9); Thyroglobulin, Serum Qt. 11.8 ng/mL (1.5-38.5); Thyroid Peroxidase AB 9 IU/mL (0-34)
== END | disposition home or self-care (01) ==
LOC: MFPLAB 09:22
PROVIDERS: PCP Family Medicine; Referring Provider Family Medicine; Visit Provider Family Medicine
DX: R79.89 Other specified abnormal findings of blood chemistry (principal)
CPT/HCPCS: 36415; 80053; 80061; 82306; 82607; 84432; 84439; 84443; 86376; 86800

== ENCOUNTER → 2024-10-23 | Outpatient (CLI) | payer OTHER, SELFPAY ==
--- NOTE | 2024-10-23 12:55 | RAD_ITS ---
PROCEDURE: ABDOMEN SINGLE VIEW 10/23/2024 REASON FOR EXAM: DAY 3 SITZ MARKER, CONSTIPATION TECHNIQUE: ABDOMEN SINGLE VIEW COMPARISON: 09/25/2024 FINDINGS: Normal gastrointestinal gas pattern seen. MiIld stool noted in large bowel loops. No pneumoperitoneum. Visualized bones appear unremarkable. No pathological abdominal calcifications noted. No sitz markers. RAD/Abdomen Single View IMPRESSION: Non-obstructive bowel gas pattern. Mild constipation. Reading [facility]
== END | disposition home or self-care (01) ==
LOC: MTRAD 12:54
PROVIDERS: PCP Family Medicine
DX: K59.00 Constipation, unspecified (principal)
CPT/HCPCS: 74018

== ENCOUNTER → 2024-10-25 | Outpatient (CLI) | payer OTHER, SELFPAY ==
--- OUTSIDE RECORDS SUMMARY | 2024-10-25 10:44 | XMS RPT_ITS ---
purulent umbilical drainage . Encounter closed. Allergies As of Date: 07/31/2024 Noted Allergy Reaction CYCLOBENZAPRINE 07/22/2024 2 - Rash Date Reviewed: 07/30/2024 Reviewed by: Antonio Cardenas RN - Fully Assessed Reason for Visit: post op pain [Other] Prescriptions as of 08/04/2024 - oxyCODONE-acetaminophen (PERCOCET) 5-325 mg tablet Take 1 tablet by mouth every 6 hours as needed for up to 5 days. - dicyclomine (BENTYL) 20 mg tablet Take 20 mg by mouth three times a day. - ondansetron orally disintegrating (ZOFRAN ODT) 4 mg disintegrating tablet Take 4 mg by mouth every 8 hours as needed. - sucralfate (CARAFATE) 1 gram tablet Take 1 tablet by mouth every 12 hours. - sertraline (ZOLOFT) 100 mg tablet Take 1 tablet by mouth once daily. - traZODone (DESYREL) 50 mg tablet Take 50 mg by mouth at bedtime as needed. For Insomnia - vonoprazan (VOQUEZNA) 10 mg tablet Take 10 mg by mouth once daily. - QELBREE 200 mg capsule, extended release Take 2 capsules by mouth every afternoon. - cetirizine (ZYRTEC) 10 mg tablet Take 1 tablet by mouth once daily. - metoprolol succinate ER (TOPROL XL) 25 mg 24 hr tablet take 1 tablet by mouth every day - L-norgest/e.estradiol-e.est rad (JAIMIESS ORAL) - mecobalamin, vitamin B12, (B12 ACTIVE) 1,000 mcg chew - ketotifen fumarate (ZADITOR) 0.025 % (0.035 %) ophthalmic solution Use 1 Drop in both eyes two times a day as needed. Problem List As Of Date 07/31/2024 Noted Resolved Gastroesophageal reflux disease [K21.9] 09/12/2022 Dizziness [R42] 07/03/2022 Headache [R51] 10/04/2022 Postural orthostatic tachycardia syndrome (POTS*05/17/2022 Pre-op examination [Z01.818] 02/06/2024 MIRTA (obstructive sleep apnea) [G47.33] 02/06/2024 BMI 39.0-39.9,adult [Z68.39] 02/06/2024 Attention-deficit hyperactivity disorder, unspe*04/03/2024 Thyroid nodule [E04.1] 07/24/2024 Anxiety and depression [F41.9, F32.A] 07/24/2024 VHD (valvular heart disease) [I38] 07/24/2024 Encounter Status:Closed by BHUMI FELIZ on 08/04/24 Normal [facility] ANES POSTPROC EVALon 025 ANES POSTPROC EVAL HNO ID: [id number] Author: BRANDIE ZULUAGA MD Service: Anesthesiology Author Type: Anesthesiologist Type: Anesthesia Postprocedure Evaluation Filed: 07/30/2024 11:45 Note Text: POST ANESTHESIA EVALUATION NOTE : 2000 Procedure Summary Date: 07/30/24 Room / Location: [place] [address] / [place] Anesthesia Start: 1014 Anesthesia Stop: 1113 Procedure: LAPAROSCOPIC CHOLECYSTECTOMY POSSIBLE OPEN (Abdomen) Diagnosis: Biliary dyskinesia RUQ abdominal pain (Biliary dyskinesia [K82.8]) (RUQ abdominal pain [R10.11]) Surgeons: Ariel Guo MD Responsible Provider: Bossman Jasmine MD Anesthesia Type: general ASA Status: 3 Anesthesia Type: general Airway Type: ETT Last Vitals Vitals Value Taken Time BP 178/101 07/30/24 1130 Temp 36.4 ?C (97.5 ?F) 07/30/24 1111 Pulse 109 07/30/24 1143 Resp 19 07/30/24 1143 SpO2 97 % 07/30/24 1143 Vitals shown include unfiled device data. Post Anesthesia Patient Status Patient Evaluation: PACU. PACU/ICU Patient Condition: stable. Anticipated Disposition: phase 2 then home. Neurological Status: sleepy but arousable. Pulmonary Status: breathing comfortably on room air Airway Control: returned to baseline unsupported. Cardiovascular Status: stable. Pain Management: inadequate with additional pain medication ordered/administered. - multimodal analgesia pain management approach Postoperative Hydration: acceptable. Intraoperative Events: no significant anesthesia events Post Operative Nausea/Vomiting Status: no significant post operative nausea or vomiting Recommendation: continue current plan of care and further care per PACU/ICU/floor team. Anesthesia Observations No Documentation SIGNATURE: Brandie Zuluaga MD PATIENT NAME: Ace Leonardo DATE: July 30, 2024 TIME: 11:45 AM CSN: [id number] [facility] ANES PRE-OPon 07-30-2024 ANES PRE-OP HNO ID: [id number] Author: BOSSMAN JASMINE MD Service: Anesthesiology Author Type: Anesthesiologist Type: Anesthesia Preprocedure Evaluation Filed: 07/30/2024 09:29 Note Text: ANESTHESIOLOGY DAY OF SURGERY NOTE : 2000 Procedure Information Date/Time: 07/30/24 0954 Procedure: LAPAROSCOPIC CHOLECYSTECTOMY POSSIBLE OPEN (Abdomen) Location: [place] Surgeons: Ariel Guo MD Estimated body mass index is 39.32 kg/m? as calculated from the following: Height as of this encounter: 157.5 cm (5' 2). Weight as of this encounter: 97.5 kg (215 lb). Most recent hematocrit and potassium results: Hematocrit 38.7 07/24/2024 Potassium 3.5 07/24/2024 Relevant Problems ANESTHESIA (+) MIRTA (obstructive sleep apnea) GI (+) Gastroesophageal reflux disease NEURO-PSYCH (+) Headache PULMONARY (+) MIRTA (obstructive sleep apnea) I - PHYSICAL EVALUATION AIRWAY Patient intubated: No. Tracheostomy tube not present Mallampati: II. TM distance: >3 FB. Neck ROM: full ROM without neurological symptoms. Mouth opening: adequate. Short neck: yes. Thick neck: no DENTAL Normal dental observations. Dental findings: teeth intact. II - ANESTHESIA PLAN ASA Score: 3 Anesthetic Plan: general Airway type: ETT The patient is not a current smoker. NPO Status: adequate Beta Reymundo Monitoring Plan Monitoring plan: standard ASA. Post Procedure Analgesic Plan Postoperative analgesic plan: parenteral or oral opioids and multimodal analgesia. Informed Consent Anesthetic risks, benefits, alternatives, personnel and consent discussed: yes. Patient / Responsible Libertarian agrees to proceed: yes Patient / Surrogate agrees to blood products: blood products not planned DNR status not reviewed with patient and/or family prior to surgery. Significant changes in the patient condition since the History and Physical, not otherwise documented in primary service progress note: no. Potential Anesthesia issues that may suggest increased risk of complications or contraindication to planned procedure: none. Discussed the possibility of lip / dental damage: yes Vitals Value Taken Time BP 171/83 07/30/24926 Pulse 110 07/30/24926 Resp 16 07/30/24926 Temp 36.6 ?C (97.9 ?F) 07/30/24926 SpO2 99 % 07/30/24926 Facility-Administered Medications as of 07/30/2024 Medication Dose Route Frequency lidocaine (PF) 10 mg/mL (1 %) 1-2 mg injection (XYLOCAINE) 0.1-0.2 mL INTRADERMAL PRN lactated ringers iv infusion 5-30 mL/hr INTRAVENOUS CONTINUOUS NaCl 0.9% iv flush bag 20 mL INTRAVENOUS PRN ceFAZolin iv piggyback 2 g in D5W (iso-osmotic) 100 mL (ANCEF) 2 g INTRAVENOUS Pre-Op Once acetaminophen 1,000 mg tab(s) (TYLENOL) 1,000 mg ORAL Pre-Op Once promethazine 12.5 mg tab(s) (PHENERGAN) 12.5 mg ORAL Pre-Op Once scopolamine (delivers 1 mg over 3 days) 1 patch (TRANSDERM-SCOP) 1 patch TRANSDERMAL ONCE scopolamine - VERIFY patch OTHER q 8 H [START ON 07/31/2024] scopolamine - REMOVE PATCH OTHER ONCE lactated ringers iv infusion 30 mL/hr INTRAVENOUS CONTINUOUS famotidine 20 mg injection (PEPCID) 20 mg INTRAVENOUS ONCE Outpatient Medications as of 07/30/2024 Medication Sig dicyclomine (BENTYL) 20 mg tablet Take 20 mg by mouth three times a day. ondansetron orally disintegrating (ZOFRAN ODT) 4 mg disintegrating tablet Take 4 mg by mouth every 8 hours as needed. sucralfate (CARAFATE) 1 gram tablet Take 1 tablet by mouth every 12 hours. sertraline (ZOLOFT) 100 mg tablet Take 1 tablet by mouth once daily. traZODone (DESYREL) 50 mg tablet Take 50 mg by mouth at bedtime as needed. For Insomnia vonoprazan (VOQUEZNA) 10 mg tablet Take 10 mg by mouth once daily. QELBREE 200 mg capsule, extended release Take 2 capsules by mouth every afternoon. cetirizine (ZYRTEC) 10 mg tablet Take 1 tablet by mouth once daily. metoprolol succinate ER (TOPROL XL) 25 mg 24 hr tablet take 1 tablet by mouth every day L-norgest/e.estradiol-e.est rad (JAIMIESS ORAL) mecobalamin, vitamin B12, (B12 ACTIVE) 1,000 mcg chew ketotifen fumarate (ZADITOR) 0.025 % (0.035 %) ophthalmic solution Use 1 Drop in both eyes two times a day as needed. I have interviewed and examined the patient. I have reviewed the medical record and/or the pre-anesthesia evaluation, pertinent labs, and test results. This contains updated information obtained within 48 hours of Surgery/Procedure. SIGNATURE: Bossman Jasmine MD PATIENT NAME: Ace Leonardo DATE: July 30, 2024 TIME: 9:29 AM CSN: [id number] [facility] ECG COMPLETEon 07-30-2024 ECG COMPLETE Ventricular Rate : 1 37 BPM Atrial Rate : 137 BPM P-R Interval : 128 ms QRS Duration : 84 ms Q-T Interval : 378 ms QTC Calculation(Bazett) : 570 ms Calculated P Peel : 40 degrees Calculated R Peel : 50 degrees Calculated T Peel : 39 degrees SINUS TACHYCARDIA NONSPECIFIC T WAVE ABNORMALITY ABNORMAL ECG NO PREVIOUS ECGS AVAILABLE Confirmed by MD SMILEY QARAB ([id number]) on 07/30/2024 5:03:09 PM NAME : ACE LEONARDO PID : [id number] : 2000 Gender : Female Race : ORD : [id number] Procedure Date : Jul 30 2024 12:45:05 Edit Date : Jul 30 2024 17:03:10 Diagnosis: SINUS TACHYCARDIA NONSPECIFIC T WAVE ABNORMALITY ABNORMAL ECG NO PREVIOUS ECGS AVAILABLE Confirmed by MD SMILEY QARAB ([id number]) on 07/30/2024 5:03:09 PM Test Reason : Arrhythmia Location : 24 : PACU POOL Overread By : MD SMILEY QARAB Edited By : MD SMILEY QARAB Referred By : , Acquired by : monica [facility] HISTORY PHYSICALon HISTORY PHYSICAL HNO ID: [id number] Author: ARIEL GUO MD Service: General Surgery Author Type: Physician Type: H&P Filed: 07/30/2024 09:39 Note Text: HISTORY AND PHYSICAL Ace Leonardo 2000 REFERRING PHYSICIAN: Neela Lino MD, MD CHIEF COMPLAINT: Consult (hernia) HPI: Ace is a 23 year old female with a complaint of right upper quadrant pain. The patient has had symptoms of right upper quadrant pain for few months. The symptoms have maintained, over the past few months. The pain does radiate to the back and shoulder. Food does aggravate her symptoms. Alleviating factors include: none. The patient was seen by the emergency room physician. Ace underwent an ultrasound and a HIDA scan. These tests demonstrated a decreased gall bladder ejection fraction. The patient is referred for evaluation and treatment. The patient is being seen by me today at the request of Dr. Neela Lino MD, MD for my opinion and advice regarding Biliary dyskinesia (primary encounter diagnosis) Ruq abdominal pain. SIGNIFICANT MEDICAL PROBLEMS: PAST MEDICAL HISTORY PAST MEDICAL HISTORY Diagnosis Date Chronic bilateral low back pain with left-sided sciatica Class 3 severe obesity due to excess calories without serious comorbidity with body mass index (BMI) of 40.0 to 44.9 in adult ([facility]) Gastroesophageal reflux disease, unspecified whether esophagitis present GERD (gastroesophageal reflux disease) Morbid obesity with BMI of 40.0-44.9, adult ([facility]) Obstructive sleep apnea POTS (postural orthostatic tachycardia syndrome) Regurgitation of food Sciatica of left side Spinal stenosis of lumbar region without neurogenic claudication OPERATIONS: PAST SURGICAL HISTORY PAST SURGICAL HISTORY Procedure Laterality Date EGD WITH BIOPSY(S) 11/16/2023 Dr. Guo EGD WITH BIOPSY(S) 02/06/2024 Dr. Boone MANOMETRY ESOPHAGEAL 02/06/2024 Dr. Boone PH SMALLS INSERT OFF MEDS 02/06/2024 Dr. Boone CURRENT MEDICATIONS: CURRENT MEDICATIONS Current Outpatient Medications Medication Sig Dispense Refill dicyclomine (BENTYL) 20 mg tablet Take 20 mg by mouth three times a day. ondansetron orally disintegrating (ZOFRAN ODT) 4 mg disintegrating tablet Take 4 mg by mouth every 8 hours as needed. sucralfate (CARAFATE) 1 gram tablet Take 1 tablet by mouth every 12 hours. sertraline (ZOLOFT) 100 mg tablet Take 1 tablet by mouth once daily. traZODone (DESYREL) 50 mg tablet Take 50 mg by mouth at bedtime as needed. For Insomnia vonoprazan (VOQUEZNA) 10 mg tablet Take 10 mg by mouth once daily. QELBREE 200 mg capsule, extended release Take 2 capsules by mouth every afternoon. cetirizine (ZYRTEC) 10 mg tablet Take 1 tablet by mouth once daily. 30 tablet 2 atomoxetine (STRATTERA) 40 mg capsule Take 40 mg by mouth once daily. metoprolol succinate ER (TOPROL XL) 25 mg 24 hr tablet take 1 tablet by mouth every day 30 tablet 3 L-norgest/e.estradiol-e.est rad (JAIMIESS ORAL) mecobalamin, vitamin B12, (B12 ACTIVE) 1,000 mcg chew Fluticasone Furoate (FLONASE SENSIMIST) 27.5 mcg/actuation nasal spray Use 1 [place] in each nostril two times a day. 9.1 mL 4 ketotifen fumarate (ZADITOR) 0.025 % (0.035 %) ophthalmic solution Use 1 Drop in both eyes two times a day as needed. 10 mL 4 omeprazole (PRILOSEC) 40 mg capsule (Patient not taking: Reported on 07/22/2024) omeprazole (PRILOSEC) 20 mg capsule Takes 40mg before breakfast and 20mg before dinner (Patient not taking: Reported on 07/22/2024) No current facility-administered medications for this visit. ALLERGIES: Cyclobenzaprine PERSONAL HISTORY: SOCIAL HISTORY Social History Tobacco Use Smoking status: Never Smokeless tobacco: Never Vaping Use Vaping status: Never Used Substance Use Topics Alcohol use: Not Currently Drug use: Never FAMILY HISTORY: FAMILY HISTORY FAMILY HISTORY Problem Relation Age of Onset Seizures Maternal Grandmother Heart Unknown maternal and paternal side Hypertension Unknown maternal great mother Cancer Unknown brain cancer- maternal great aunt other (hearing problems [Other]) Unknown maternal grandmother REVIEW OF SYMPTOMS: The review of systems data was entered by the nurse and reviewed by me There are no exam notes on file for this visit. PHYSICAL EXAMINATION: General: The patient is 23 year old female, well nourished, well hydrated in no acute distress. The patient is oriented to time, place, and person. VITALS: Blood pressure 118/78, pulse 97, temperature 36.2 ?C (97.1 ?F), height 157.5 cm (5' 2), weight 99.2 kg (218 lb 9.6 oz), SpO2 98%. Body mass index is 39.98 kg/m?. HEENT: Normal cephalic, ataumatic, pupils are equally round, sclera are anicteric, mucous membranes are moist, oropharynx is clear. Neck has no masses, asymmetry or lymphadenopathy. Thyroid is unremarkable. Respiratory: Clear to auscultation and percussion. Normal respiratory excursion and pattern. Cardiac: (more content not included)... Normal [facility] OPERATIVE NOon 07-30-2024 OPERATIVE NO HNO ID: [id number] Author: ARIEL GUO MD Service: General Surgery Author Type: Physician Type: Operative Report Filed: 07/30/2024 10:59 Note Text: OPERATIVE/PROCEDURE REPORT LOG ID: [id number] SURGERY/PROCEDURE DATE: 07/30/2024 INCISION/PROCEDURE START TIME: 10:30 AM INCISION CLOSE/PROCEDURE END TIME: 10:57 AM SURGEON(S)/PROCEDURALIST(S) AND MIDDLE SCHOOL PE TEACHER(S): Surgeons and Role: * Ariel Guo MD - Primary Physician Pad Making Machine Operator: Leeanne Koenig PA-C SURGERY/PROCEDURE(S): Laparoscopic cholecystectomy ANESTHESIA: General SURGERY/PROCEDURE DETAILS: Patient was brought in the operating room. Placed in supine position. Under excellent general anesthetic the abdomen was sterilely prepped and draped in usual fashion. Local was injected in for umbilically. Dissection was carried down to the fascia. Fascia was grasped with a Mcgrann. Ruiz's needles placed inside the abdomen. The abdomen was insufflated to 15 torr. A 10/12 trocar was placed without difficulty. Patient was placed in the head up and rotated to the left position. A subxiphoid #5 trocar was placed inferior to this another #5 trocar was placed, laterally and #5 trocar was placed. All of these were placed under direct visualization without injury to underlying structures. Fundus of the gallbladder was grasped and retracted cephalad direction infundibulum was grasped retracted laterally. I dissected out the cystic duct placed hemoclips proximally distally and ligated the duct. Identified the cystic artery placed hemoclips proximally distally and ligated the artery. The liver the gallbladder from the gallbladder bed with the use of electrocautery the had no spillage of bile. Placed the specimen in a specimen bag delivered through the umbilical port without difficulty. Reinflated the abdomen and used electrocautery for getting the stasis on the liver bed. Retrieved all the irrigant. Remove the trocars under direct visualization good hemostasis was noted. Close the fascia at the umbilical port with a [id number] stitch of 0 Vicryl. Skin incisions were closed with subcuticular stitches of 4-0 Monocryl. Steri-Strips were applied sterile dressings were applied and the patient tolerated the procedure well. Leeanne Koenig PA-C was my assistant professor. She assisted with retraction, visualization and performed skin closure. No additional surgeons or qualified residents were available. PRE-OP/PRE-PROCEDURE DIAGNOSIS: Biliary dyskinesia (hyperkinesia) POST-OP/POST-PROCEDURE DIAGNOSIS: Same as Preop ESTIMATED BLOOD LOSS: < 20 mls SPECIMENS: Gallbladder IMPLANTABLE DEVICES: NONE DRAINS: None COMPLICATIONS: None CLOSURE TECHNIQUE: Primary PARTICIPATION IN SURGERY/PROCEDURE: I/primary surgeon/proceduralist performed the procedure with assistance. SIGNATURE: Ariel Guo III, MD PATIENT NAME: Ace Leonardo DATE: July 30, 2024 TIME: 10:56 AM [facility] Pathology biopsy report Howard (Tiss)on 07-30-2024 AP DISCLAIMER [facility] Comment on above: Order Comment: Speci men Type: TISSUE SPECIMENOrdering Facility: [facility] Address: [address] [place] [address] Result Comment: Gutierrez Novoa Test (LDT) Disclaimer: Performance characteristics of immunohistochemical, immunofluorescent, and chromogenic in-situ hybridization tests have been determined by the performing laboratory within [facility] ([facility], [facility], [facility], [facility], [facility], [facility], or [facility]) in a manner consistent with CLIA requirements. One or more of these tests may not have been cleared or approved by the FDA. [facility] is regulated under CLIA as qualified to perform high-complexity testing. These tests are used for clinical purposes. These should not be regarded as investigational or for research. Positive and negative controls stain appropriately. Performed By: #### 6 6121-5 ####[facility] LABCLIA [id number] [address] [place] CASE REPORT Normal [facility] Comment on above: Order Comment: Speci men Type: TISSUE SPECIMENOrdering Facility: [facility] Address: [address] [place] [address] Result Comment: Surg ica Pathology Report Case: [id number] Authorizing Provider: Ariel Guo MD Collected: 07/30/2024 10:38 AM Ordering Location: [facility] Surgery Received: 07/30/2024 12:47 PM Pathologist: Yuri Garcia MD Specimen: Gallbladder, gallbladder Performed By: #### 6 6121-5 ####[facility]CL[facility] [id number] [address] [place] CLINICAL HISTORY Normal [facility] Comment on above: Order Comment: Speci men Type: TISSUE SPECIMENOrdering Facility: [facility] Address: [address] [place] [address] Result Comment: Pre- op diagnosis: Biliary dyskinesia [K82.8] RUQ abdominal pain [R10.11] Performed By: #### 6 6121-5 ####[facility] LABCLIA [id number] [address] OF [place] FINAL DIAGNOSIS [facility] Comment on above: Order Comment: Speci men Type: TISSUE SPECIMENOrdering Facility: [facility] Address: [address] [place] [address] Result Comment: Gall bladder, cholecystectomy: - Chronic cholecystitis with cholesterolosis. at 1701 EDT Performed By: #### 6 6121-5 ####[facility]CLIA [id number] [address] [place] FINAL PERFORMING LAB Normal [facility] Comment on above: Order Comment: Speci men Type: TISSUE SPECIMENOrdering Facility: [facility] Address: [address] [place] [address] Result Comment: Diag nostic interpretation performed at: [facility], [address] [place] [address] CLIA# [id number] Vp Clinical Research: Mario Glez MD Performed By: #### 6 6121-5 ####[facility] [id number] [place] [address] [place] GROSS DESCRIPTION A. Gallbladder Normal [facility] Comment on above: Order Comment: Speci men Type: TISSUE SPECIMENOrdering Facility: [facility] Address: [address] [place] [address] Result Comment: Rece ived in formalin labeled gallbladder and consists of a gallbladder measuring 6.0 x 3.0 x 1.5 cm. The serosal aspect is smooth and glistening. A defect is not present. The lumen contains bile. The wall of the gallbladder averages 0.1 cm in thickness. Calculi are not present. A calculus is not impacted in the cystic duct. The mucosa is pascual-brown, velvety with diffuse yellow stippling. Computer Aided Drafter sections are submitted in A1. Gross examination performed at [facility], [address] [place] [address] MSL/ELOISA 07/30/24 3:53 PM Performed By: #### 6 6121-5 ####[facility] LABIA [id number] [place] [address] [place] 5-HIAA 24 HR URon 07-29-2024 5-HIAA, Urine 3.8 mg/L Normal Undefined [facility] Comment on above: Order Comment: Test( s) [id number], Urinewas developed and its performance characteristicsdetermined by [facility]. It has not been cleared or approvedby the Food and Drug Administration.800 Performed By: #### L 3700.1000, L3600.2500 ####[facility] [address] [place], [address] 5-HIAA,U, 24 HR 3.0 mg/24 hr Normal 0.0-14.9 [facility] Comment on above: Order Comment: Test( s) [id number], Urinewas developed and its performance characteristicsdetermined by [facility]. It has not been cleared or approvedby the Food and Drug Administration.800 Result Comment: Perf ormed at: - Lab[address] [id number] Director: Kiki Tyson MD, Phone: [phone] Performed By: #### L 3700.1000, L3600.2500 ####[facility] [address] [place], [address] CNPPeace 07-28-2024 [facility] Telephone (GENSWS) ACE LEONARDO ([id number]) 2 F Date Time Provider Department 07/28/24 ARIEL GUOArturo During your visit today, we recorded the following information about you: Vera Nicholson RN 07/28/2024 11:17 AM Signed [facility] paperwork filled out, scanned in [email or web address], and placed at front counter clerk for pickup, Pt contacted by phone and verbalized understanding.Vera Nicholson RN Allergies As of Date: 07/28/2024 Noted Allergy Reaction CYCLOBENZAPRINE 07/22/2024 2 - Rash Date Reviewed: 07/24/2024 Reviewed by: Yun Johnson APRN.GEAR DESIGN ENGINEER - Fully Assessed Prescriptions as of 07/29/2024 - dicyclomine (BENTYL) 20 mg tablet Take 20 mg by mouth three times a day. - ondansetron orally disintegrating (ZOFRAN ODT) 4 mg disintegrating tablet Take 4 mg by mouth every 8 hours as needed. - sucralfate (CARAFATE) 1 gram tablet Take 1 tablet by mouth every 12 hours. - sertraline (ZOLOFT) 100 mg tablet Take 1 tablet by mouth once daily. - traZODone (DESYREL) 50 mg tablet Take 50 mg by mouth at bedtime as needed. For Insomnia - vonoprazan (VOQUEZNA) 10 mg tablet Take 10 mg by mouth once daily. - QELBREE 200 mg capsule, extended release Take 2 capsules by mouth every afternoon. - cetirizine (ZYRTEC) 10 mg tablet Take 1 tablet by mouth once daily. - metoprolol succinate ER (TOPROL XL) 25 mg 24 hr tablet take 1 tablet by mouth every day - L-norgest/e.estradiol-e.est rad (JAIMIESS ORAL) - mecobalamin, vitamin B12, (B12 ACTIVE) 1,000 mcg chew - ketotifen fumarate (ZADITOR) 0.025 % (0.035 %) ophthalmic solution Use 1 Drop in both eyes two times a day as needed. Problem List As Of Date 07/28/2024 Noted Resolved Gastroesophageal reflux disease [K21.9] 09/12/2022 Dizziness [R42] 07/03/2022 Headache [R51] 10/04/2022 Postural orthostatic tachycardia syndrome (POTS*05/17/2022 Pre-op examination [Z01.818] 02/06/2024 MIRTA (obstructive sleep apnea) [G47.33] 02/06/2024 BMI 39.0-39.9,adult [Z68.39] 02/06/2024 Attention-deficit hyperactivity disorder, unspe*04/03/2024 Thyroid nodule [E04.1] 07/24/2024 Anxiety and depression [F41.9, F32.A] 07/24/2024 VHD (valvular heart disease) [I38] 07/24/2024 Encounter Status:Closed by VERA NICHOLSON on 07/29/24 Normal [facility] Copper, 24 HR URon 5 MIGRATION AGENT/LINE CLEANER RATIO 6 ug/g creat Normal 0-49 [facility] Comment on above: Order Comment: Test( s) 765514-Hvktup, Urinewas developed and its performance characteristicsdetermined by [facility]. It has not been cleared or approvedby the Food and Drug Administration. Result Comment: PER CHARGE NURSE PATIENT WAS DISCHARGED AND DR. BAJWA TOCANCEL Performed By: #### L 3700.1000, L3600.2500 ####[facility] [address] [place], [address] COPPER, U24 72 ug/24 hr High 3-35 [facility] Comment on above: Order Comment: Test( s) 950015-Hvmahu, Urinewas developed and its performance characteristicsdetermined by [facility]. It has not been cleared or approvedby the Food and Drug Administration. Result Comment: Perf ormed at: [facility], [place], [place] [id number] Director: Rayna Tolbert MD, Phone: [phone] at: - [facility] [address] [place], [place] [id number] Director: Kiki Tyson MD, Phone: [phone] Performed By: #### L 3700.1000, L3600.2500 ####[facility] [address] [place], [address] COPPER,UR 9 ug/L Normal Not Estab. [facility] Comment on above: Order Comment: Test( s) 225718-Yotfwz, Urinewas developed and its performance characteristicsdetermined by [facility]. It has not been cleared or approvedby the Food and Drug Administration. Result Comment: Dete ction Limit = 1 Performed By: #### L 3700.1000, L3600.2500 ####[facility] [address] [place], [address] CREATININE 1.45 g/L Normal 0.30-3.00 [facility] Comment on above: Order Comment: Test( s) 295887-Grvrve, Urinewas developed and its performance characteristicsdetermined by [facility]. It has not been cleared or approvedby the Food and Drug Administration. Result Comment: Dete ction Limit = 0.10 Performed By: #### L 3700.1000, L3600.2500 ####[facility] [address] [place], [address] ANCAon 07-25-2024 Atypical pANCA <1:20 Normal Neg:<1:20 [facility] Comment on above: Order Comment: Test( s) 706017-Qwzzgd, Serum or Plasmawas developed and its performance characteristicsdetermined by [facility]. It has not been cleared or approvedby the Food and Drug Administration. Result Comment: The atypical pANCA pattern has been observed in asignificant percentage of patients with ulcerative colitis,primary sclerosing cholangitis and autoimmune hepatitis. Performed By: #### L 501.9520, L3300.1200, L501.3620, L501.6710, L3100.5440, L101.9900, L504.2610, L3300.1800, L3300.0100, L3400.0700, L3900.2100 ####[facility] [address] [place], [address] Cytoplasmic Ab <1:20 Normal Neg:<1:20 [facility] Comment on above: Order Comment: Test( s) [id number]-Sdawkb, Serum or Plasmawas developed and its performance characteristicsdetermined by [facility]. It has not been cleared or approvedby the Food and Drug Administration. Performed By: #### L 501.9520, L3300.1200, L501.3620, L501.6710, L3100.5440, L101.9900, L504.2610, L3300.1800, L3300.0100, L3400.0700, L3900.2100 ####[facility] [address] [place], [address] Perinuclear Ab. <1:20 Normal Neg:<1:20 [facility] Comment on above: Order Comment: Test( s) 904078-Rqbtrr, Serum or Plasmawas developed and its performance characteristicsdetermined by [facility]. It has not been cleared or approvedby the Food and Drug Administration. Result Comment: The presence of positive fluorescence exhibiting P-ANCA orC-ANCA patterns alone is not specific for the diagnosis ofWegener's Granulomatosis (WG) or microscopic polyangiitis.Decisions about treatment should not be based solely onANCA IFA results. The International ANCA Group Consensusrecommends follow up testing of positive sera with both UT-3 and MPO-ANCA enzyme immunoassays. As many as 5% serumsamples are positive only by EIA. Ref. AM J Clin Pnfcvr8640;111:507-513. Performed By: #### L 501.9520, L3300.1200, L501.3620, L501.6710, L3100.5440, L101.9900, L504.2610, L3300.1800, L3300.0100, L3400.0700, L3900.2100 ####[facility] [address] [place], [place], [id number] Ceruloplasminon 07-25-2024 CERULOPLASMIN 38.8 mg/dL Normal 19.0-39.0 [facility] Comment on above: Order Comment: Test( s) 404093-Slfqfe, Serum or Plasmawas developed and its performance characteristicsdetermined by [facility]. It has not been cleared or approvedby the Food and Drug Administration. Performed By: #### L 501.9520, L3300.1200, L501.3620, L501.6710, L3100.5440, L101.9900, L504.2610, L3300.1800, L3300.0100, L3400.0700, L3900.2100 ####[facility] [address] [facility] [place], [place], [id number] Copper, Serum or Plasmaon COPPER, SERUM 151 ug/dL Normal 80-158 [facility] Comment on above: Order Comment: Test( s) 237396-Mjhlyh, Serum or Plasmawas developed and its performance characteristicsdetermined by [facility]. It has not been cleared or approvedby the Food and Drug Administration. Result Comment: Dete ction Limit = 5Performed at: [facility] [employer] [id number] Director: Rodney Jonas PhD, Phone: [phone] at: [facility] [employer] [id number] Director: Kiki Tyson MD, Phone: [phone] Performed By: #### L 501.9520, L3300.1200, L501.3620, L501.6710, L3100.5440, L101.9900, L504.2610, L3300.1800, L3300.0100, L3400.0700, L3900.2100 ####[facility] [address] [place], [place], [id number] Gastrin, Serumon 07-25-2024 GASTRIN 97 pg/mL Normal 0-115 [facility] Comment on above: Order Comment: Test( s) 447210-Tmwexs, Serum or Plasmawas developed and its performance characteristicsdetermined by [facility]. It has not been cleared or approvedby the Food and Drug Administration. Result Comment: [facility] 5min [employer] 2000 Immunochemiluminometric assay (ICMA)Values obtained with different assay methods or kits cannotbe used interchangeably. Results cannot be interpreted asabsolute evidence of the presence or absence of malignantdisease. Performed By: #### L 501.9520, L3300.1200, L501.3620, L501.6710, L3100.5440, L101.9900, L504.2610, L3300.1800, L3300.0100, L3400.0700, L3900.2100 ####[facility] [address] [place], [place], [id number] Gastroenterology Visit Repor ton 07-25-2024 Gastroenterology Visit Report Normal [facility] Hemoglobin A1con 07-25-2024 HbA1c (Bld) [Mass fraction] 5.5 % Normal <=5.6 [facility] Comment on above: Result Comment: Norm al < 5.7 % Prediabetic 5.7 - 6.4 % Diabetic >or= 6.5 % Please note range changes. Performed By: #### L 501.9985 ####[facility] [address] [place], [place], [phone] CBC W Auto Differential pane l (Bld)on 07-24-2024 Basophils (Bld) [#/Vol] 0.03 10*3/uL [facility] Basophils/100 WBC (Bld) 0.6 % [facility] Differential cell count method Nom (Bld) Auto [facility] Eosinophils (Bld) [#/Vol] 0.1 10*3/uL [facility] Eosinophils/100 WBC (Bld) 2 % [facility] Erythrocyte distribution width (RBC) [Ratio] 14.9 % 11.5 - 15.0 % [facility] Hematocrit (Bld) [Volume fraction] 38.7 % 36.0 - 46.0 % [facility] Hemoglobin (Bld) [Mass/Vol] 12.3 g/dL 11.5 - 15.5 g/dL [facility] Immature granulocytes (Bld) [#/Vol] [facility] Immature granulocytes/100 WBC (Bld) 0.2 % [facility] Lymphocytes (Bld) [#/Vol] 1.58 10*3/uL [facility] Lymphocytes/100 WBC (Bld) 31 % [facility] MCH (RBC) [Entitic mass] 26.8 pg 26.0 - 34.0 pg [facility] MCHC (RBC) [Mass/Vol] 31.8 g/dL 30.5 - 36.0 g/dL [facility] MCV (RBC) [Entitic vol] 84.3 fL 80.0 - 100.0 fL [facility] Monocytes (Bld) [#/Vol] 0.52 10*3/uL [facility] Monocytes/100 WBC (Bld) 10.2 % [facility] Neutrophils (Bld) [#/Vol] 2.86 10*3/uL [facility] Neutrophils/100 WBC (Bld) 56 % [facility] Nucleated RBC (Bld) [#/Vol] [facility] Nucleated RBC/100 WBC (Bld) [Ratio] 0 % /100 WBC [facility] Platelet mean volume (Bld) [Entitic vol] 10.9 fL 9.0 - 12.7 fL [facility] Platelets (Bld) [#/Vol] 252 10*3/uL [facility] RBC (Bld) [#/Vol] 4.59 10*6/uL 3.90 - 5.2 0 m/uL [facility] WBC (Bld) [#/Vol] 5.1 10*3/uL [facility] Basophils (Bld) [#/Vol] 0.03 10*3/uL Normal <0.11 [facility] Comment on above: Order Comment: Speci men Type: BLOOD SPECIMENOrdering Facility: [facility] Address: [address] [place] [address] Performed By: #### 5 7021-8 ####[facility] YOLETTEWNCLIA [id number] [place] [address] [place] Basophils/100 WBC (Bld) 0.6 % Normal [facility] Comment on above: Order Comment: Speci men Type: BLOOD SPECIMENOrdering Facility: [facility] Address: [address] [place] [address] Performed By: #### 5 7021-8 ####[facility] HOSPITALL[facility] [id number] [place] [address] [place] Differential cell count method Nom (Bld) Auto Normal [facility] Comment on above: Order Comment: Speci men Type: BLOOD SPECIMENOrdering Facility: [facility] Address: [address] [place] [address] Performed By: #### 5 7021-8 ####[facility]OS[facility]ALLIA [id number] [place] [address] [place] Eosinophils (Bld) [#/Vol] 0.10 10*3/uL Normal <0.46 [facility] Comment on above: Order Comment: Speci men Type: BLOOD SPECIMENOrdering Facility: [facility] Address: [address] [place] [address] Performed By: #### 5 7021-8 ####[facility] MILLWNCLIA [id number] [place] [address] [place] Eosinophils/100 WBC (Bld) 2.0 % Normal [facility] Comment on above: Order Comment: Speci men Type: BLOOD SPECIMENOrdering Facility: [facility] Address: [address] [place] [address] Performed By: #### 5 7021-8 ####[facility]LEWNCLIA [id number] [place] [address] [place] Erythrocyte distribution width (RBC) [Ratio] 14.9 % Normal 11.5-15.0 [facility] Comment on above: Order Comment: Speci men Type: BLOOD SPECIMENOrdering Facility: [facility] Address: [address] [place] [address] Performed By: #### 5 7021-8 ####[facility]ENTERPREMALIA [id number] [place] [address] [place] Hematocrit (Bld) [Volume fraction] 38.7 % Normal 36.0-46.0 [facility] Comment on above: Order Comment: Speci men Type: BLOOD SPECIMENOrdering Facility: [facility] Address: [address] [place] [address] Performed By: #### 5 7021-8 ####[facility] CENTERPREMALIJose Manuel [id number] [place] [address] [place] Hemoglobin (Bld) [Mass/Vol] 12.3 g/dL Normal 11.5-15.5 [facility] Comment on above: Order Comment: Speci men Type: BLOOD SPECIMENOrdering Facility: [facility] Address: [address] [place] [address] Performed By: #### 5 7021-8 ####[facility] CENTERPREMALIA [id number] [place] [address] [place] Immature granulocytes (Bld) [#/Vol] 10*3/uL Normal <0.10 [facility] Comment on above: Order Comment: Speci men Type: BLOOD SPECIMENOrdering Facility: [facility] Address: [address] [place] [address] Performed By: #### 5 7021-8 ####[facility] CENTERNCLIA [id number] [place] [address] [place] Immature granulocytes/100 WBC (Bld) 0.2 % Normal [facility] Comment on above: Order Comment: Speci men Type: BLOOD SPECIMENOrdering Facility: [facility] Address: [address] [place] [address] Performed By: #### 5 7021-8 ####[facility]ENTERNCPR[facility] [id number] [place] [address] [place] Lymphocytes (Bld) [#/Vol] 1.58 10*3/uL Normal 1.00-4.00 [facility] Comment on above: Order Comment: Speci men Type: BLOOD SPECIMENOrdering Facility: [facility] Address: [address] [place] [address] Performed By: #### 5 7021-8 ####[facility] [id number] [place] [address] [place] Lymphocytes/100 WBC (Bld) 31.0 % Normal [facility] Comment on above: Order Comment: Speci men Type: BLOOD SPECIMENOrdering Facility: [facility] Address: [address] [place] [address] Performed By: #### 5 7021-8 ####[facility]ENTERNCPR[facility] [id number] [place] [address] [place] MCH (RBC) [Entitic mass] 26.8 pg Normal 26.0-34.0 [facility] Comment on above: Order Comment: Speci men Type: BLOOD SPECIMENOrdering Facility: [facility] Address: [address] [place] [address] Performed By: #### 5 7021-8 ####[facility] [id number] [place] [address] [place] MCHC (RBC) [Mass/Vol] 31.8 g/dL Normal 30.5-36.0 [facility] Comment on above: Order Comment: Speci men Type: BLOOD SPECIMENOrdering Facility: [facility] Address: [address] [place] [address] Performed By: #### 5 7021-8 ####[facility] YOLETTEGRIFFINPOONAM [id number] [place] [address] [place] MCV (RBC) [Entitic vol] 84.3 fL Normal 80.0-100.0 [facility] Comment on above: Order Comment: Speci men Type: BLOOD SPECIMENOrdering Facility: [facility] Address: [address] [place] [address] Performed By: #### 5 7021-8 ####[facility]ENTERNC[facility] [id number] [place] [address] [place] Monocytes (Bld) [#/Vol] 0.52 10*3/uL Normal <0.87 [facility] Comment on above: Order Comment: Speci men Type: BLOOD SPECIMENOrdering Facility: [facility] Address: [address] [place] [address] Performed By: #### 5 7021-8 ####[facility]ITALA [id number] [place] [address] [place] Monocytes/100 WBC (Bld) 10.2 % Normal [facility] Comment on above: Order Comment: Speci men Type: BLOOD SPECIMENOrdering Facility: [facility] Address: [address] [place] [address] Performed By: #### 5 7021-8 ####[facility]PITALLIA [id number] [place] [address] [place] Neutrophils (Bld) [#/Vol] 2.86 10*3/uL Normal 1.45-7.50 [facility] Comment on above: Order Comment: Speci men Type: BLOOD SPECIMENOrdering Facility: [facility] Address: [address] [place] [address] Performed By: #### 5 7021-8 ####[facility] YOLETTEGRIFFINPREMALIA [id number] [place] [address] [place] Neutrophils/100 WBC (Bld) 56.0 % Normal [facility] Comment on above: Order Comment: Speci men Type: BLOOD SPECIMENOrdering Facility: [facility] Address: [address] [place] [address] Performed By: #### 5 7021-8 ####[facility] [id number] [place] [address] [place] Nucleated RBC (Bld) [#/Vol] 10*3/uL Normal <0.01 [facility] Comment on above: Order Comment: Speci men Type: BLOOD SPECIMENOrdering Facility: [facility] Address: [address] [place] [address] Performed By: #### 5 7021-8 ####[facility] [id number] [place] [address] [place] Nucleated RBC/100 WBC (Bld) [Ratio] 0.0 /100 WBC Normal [facility] Comment on above: Order Comment: Speci men Type: BLOOD SPECIMENOrdering Facility: [facility] Address: [address] [place] [address] Performed By: #### 5 7021-8 ####[facility] [id number] [place] [address] [place] Platelet mean volume (Bld) [Entitic vol] 10.9 fL Normal 9.0-12.7 [facility] Comment on above: Order Comment: Speci men Type: BLOOD SPECIMENOrdering Facility: [facility] Address: [address] [place] [address] Performed By: #### 5 7021-8 ####[facility] CENTERNCLI [id number] [place] [address] [place] Platelets (Bld) [#/Vol] 252 10*3/uL Normal 150-400 [facility] Comment on above: Order Comment: Speci men Type: BLOOD SPECIMENOrdering Facility: [facility] Address: [address] [place] [address] Performed By: #### 5 7021-8 ####[facility]LEWNCLIA [id number] [place] [address] [place] RBC (Bld) [#/Vol] 4.59 10*6/uL Normal 3.90-5.20 [facility] Comment on above: Order Comment: Speci men Type: BLOOD SPECIMENOrdering Facility: [facility] Address: [address] [place] [address] Performed By: #### 5 7021-8 ####[facility] CENTERNCLIA [id number] [place] [address] [place] WBC (Bld) [#/Vol] 5.10 10*3/uL Normal 3.70-11.00 [facility] Comment on above: Order Comment: Speci men Type: BLOOD SPECIMENOrdering Facility: [facility] Address: [address] [place] [address] Performed By: #### 5 7021-8 ####[facility] CENTERNCLIA [id number] [place] [address] [place] [facility] ACE LEONARDO ([id number]) 2 F Date Time Provider Department 07/24/24 ARIEL GUO During your visit today, we recorded the following information about you: Ann Marie Agudelo RN 07/24/2024 3:34 PM Signed Call received from Pt - name AND verified. Pt calls and reports that she has been vomiting and nauseous all day and cannot keep anything down. She is trying to avoid another trip to the ED. She has been taking Zofran, Sucralfate, and Bentyl as prescribed but reports it's not working to keep her symptoms at bay. She is not scheduled for surgery with Dr. Guo until 07/30/2024. Pt wonders if there might be another antiemetic Dr. Guo would be willing to send into her local pharmacy for her to try. Please review and advise. Pt prefers a phone call back. Ann Marie Agudelo RN July 24, 2024 3:33 PM Ariel Guo MD 07/25/2024 10:19 AM Signed Jared can you try to add her on sooner Allergies As of Date: 07/24/2024 Noted Allergy Reaction CYCLOBENZAPRINE 07/22/2024 2 - Rash Date Reviewed: 07/24/2024 Reviewed by: Yun Johnson APRN.GEAR DESIGN ENGINEER - Fully Assessed Reason for Visit: Patient Question [1477] Medication Request [138] Prescriptions as of 07/25/2024 - dicyclomine (BENTYL) 20 mg tablet Take 20 mg by mouth three times a day. - ondansetron orally disintegrating (ZOFRAN ODT) 4 mg disintegrating tablet Take 4 mg by mouth every 8 hours as needed. - sucralfate (CARAFATE) 1 gram tablet Take 1 tablet by mouth every 12 hours. - sertraline (ZOLOFT) 100 mg tablet Take 1 tablet by mouth once daily. - traZODone (DESYREL) 50 mg tablet Take 50 mg by mouth at bedtime as needed. For Insomnia - vonoprazan (VOQUEZNA) 10 mg tablet Take 10 mg by mouth once daily. - QELBREE 200 mg capsule, extended release Take 2 capsules by mouth every afternoon. - cetirizine (ZYRTEC) 10 mg tablet Take 1 tablet by mouth once daily. - metoprolol succinate ER (TOPROL XL) 25 mg 24 hr tablet take 1 tablet by mouth every day - L-norgest/e.estradiol-e.est rad (JAIMIESS ORAL) - mecobalamin, vitamin B12, (B12 ACTIVE) 1,000 mcg chew - ketotifen fumarate (ZADITOR) 0.025 % (0.035 %) ophthalmic solution Use 1 Drop in both eyes two times a day as needed. Problem List As Of Date 07/24/2024 Noted Resolved Gastroesophageal reflux disease [K21.9] 09/12/2022 Dizziness [R42] 07/03/2022 Headache [R51] 10/04/2022 Postural orthostatic tachycardia syndrome (POTS*05/17/2022 Pre-op examination [Z01.818] 02/06/2024 MIRTA (obstructive sleep apnea) [G47.33] 02/06/2024 BMI 39.0-39.9,adult [Z68.39] 02/06/2024 Attention-deficit hyperactivity disorder, unspe*04/03/2024 Thyroid nodule [E04.1] 07/24/2024 Anxiety and depression [F41.9, F32.A] 07/24/2024 VHD (valvular heart disease) [I38] 07/24/2024 Encounter Status:Closed by ANN MARIE AGUDELO on 07/24/24 Normal [facility] Comprehensive metabolic 2000 panelOrdered By: Kenya Etienne on 07-24-2024 Albumin [Mass/Vol] 4.3 g/dL 3.9 - 4.9 g/dL [facility] ALP [Catalytic activity/Vol] 95 U/L 34 - 123 U/L [facility] ALT [Catalytic activity/Vol] 15 U/L 7 - 38 U/L [facility] Anion gap [Moles/Vol] 11 mmol/L 8 - 15 mmol/L [facility] AST [Catalytic activity/Vol] 21 U/L 13 - 35 U/L [facility] Bilirubin [Mass/Vol] 0.2 mg/dL 0.2 - 1 .3 mg/dL [facility] Calcium [Mass/Vol] 9.3 mg/dL 8.5 - 10. 2 mg/dL [facility] Chloride [Moles/Vol] 103 mmol/L 98 - 10 7 mmol/L [facility] CO2 [Moles/Vol] 28 mmol/L 22 - 30 mmol/L [facility] Creatinine [Mass/Vol] 0.93 mg/dL 0.58 - 0.96 mg/dL [facility] GFR/1.73 sq M.predicted among non-blacks MDRD (S/P/Bld) [Vol rate/Area] 89 mL/min/{1.73_m2} - PINF [facility] Comment on above: Estimated Glomerular Filtration Rate (eGFR) is calculated using the 2020 CKD-EPI creatinine equation. This equation utilizes serum creatinine, sex, and age as parameters. The creatinine assay has traceable calibration to isotope dilution-mass spectrometry. Refer to KDIGO guidelines for clinical interpretation. In patients with unstable renal function, e.g. those with acute kidney injury, the eGFR may not accurately reflect actual GFR. Glucose [Mass/Vol] 100 mg/dL High 74 - 99 mg/dL [facility] Comment on above: The [place] Diabete s Association (ADA) provides guidance for cutoff values [...] Standards of Medical Care in Diabetes 2016, [place] [employer]. Diabetes Care. 2016.39(Suppl 1). Interpretation and review of laboratory results Abnormal [facility] Potassium [Moles/Vol] 3.5 mmol/L Low 3.7 - 5.1 mmol/L [facility] Protein [Mass/Vol] 6.9 g/dL 6.3 - 8.0 g/dL [facility] Sodium [Moles/Vol] 142 mmol/L 136 - 144 mmol/L [facility] Urea nitrogen [Mass/Vol] 8 mg/dL 7 - 21 mg/dL [facility] Comprehensive metabolic 2000 panelon 07-24-2024 Albumin [Mass/Vol] 4.3 g/dL Normal 3.9-4.9 [facility] Comment on above: Order Comment: Speci men Type: BLOOD SPECIMENOrdering Facility: [facility] Address: [address] [place] [address] Performed By: #### 2 4323-8 ####[facility] DEBBIE MILLTOWNCLIA [id number] [place] [address] [place] ALP [Catalytic activity/Vol] 95 U/L Normal 34-123 [facility] Comment on above: Order Comment: Speci men Type: BLOOD SPECIMENOrdering Facility: [facility] Address: [address] [place] [address] Performed By: #### 2 4323-8 ####[facility] MILLWNCLIA [id number] [place] [address] [place] ALT [Catalytic activity/Vol] 15 U/L Normal 7-38 [facility] Comment on above: Order Comment: Speci men Type: BLOOD SPECIMENOrdering Facility: [facility] Address: [address] [place] [address] Performed By: #### 2 4323-8 ####[facility]LEWNCL[facility] [id number] [place] [address] [place] Anion gap [Moles/Vol] 11 mmol/L Normal 8-15 [facility] Comment on above: Order Comment: Speci men Type: BLOOD SPECIMENOrdering Facility: [facility] Address: [address] [place] [address] Performed By: #### 2 4323-8 ####[facility] MILLTOWNCLIA [id number] [place] [address] [place] AST [Catalytic activity/Vol] 21 U/L Normal 13-35 [facility] Comment on above: Order Comment: Speci men Type: BLOOD SPECIMENOrdering Facility: [facility] Address: [facility] [place] [address] Performed By: #### 2 4323-8 ####[facility]OWN[facility] [id number] [place] [address] [place] Bilirubin [Mass/Vol] 0.2 mg/dL Normal 0.2-1.3 [facility] Comment on above: Order Comment: Speci men Type: BLOOD SPECIMENOrdering Facility: [facility] Address: [address] [place] [address] Performed By: #### 2 4323-8 ####[facility] MILLWNCLIA [id number] [place] [address] [place] Calcium [Mass/Vol] 9.3 mg/dL Normal 8.5-10.2 [facility] Comment on above: Order Comment: Speci men Type: BLOOD SPECIMENOrdering Facility: [facility] Address: [address] [place] [address] Performed By: #### 2 4323-8 ####[facility]IT[facility] [id number] [place] [address] [place] Chloride [Moles/Vol] 103 mmol/L Normal 98-107 [facility] Comment on above: Order Comment: Speci men Type: BLOOD SPECIMENOrdering Facility: [facility] Address: [address] [place] [address] Performed By: #### 2 4323-8 ####[facility]IT[facility] [id number] [place] [address] [place] CO2 [Moles/Vol] 28 mmol/L Normal 22-30 [facility] Comment on above: Order Comment: Speci men Type: BLOOD SPECIMENOrdering Facility: [facility] Address: [address] [place] [address] Performed By: #### 2 4323-8 ####[facility] [id number] [place] [address] [place] Creatinine [Mass/Vol] 0.93 mg/dL Normal 0.58-0.96 [facility] Comment on above: Order Comment: Speci men Type: BLOOD SPECIMENOrdering Facility: [facility] Address: [address] [place] [address] Performed By: #### 2 4323-8 ####[facility] [id number] [place] [address] [place] Creatinine and Glomerular filtration rate.predicted panel (S/P/Bld) 89 mL/min/1.73m??? Normal >=60 [facility] Comment on above: Order Comment: Jonnathan jones Type: BLOOD SPECIMENOrdering Facility: [facility] Address: [address] [place] [address] Result Comment: Mamta mated Glomerular Filtration Rate [...] reflect actual GFR. Performed By: #### 2 4323-8 ####[facility] [id number] [place] [address] [place] Glucose [Mass/Vol] 100 mg/dL High 74-99 [facility] Comment on above: Order Comment: Jonnathan jones Type: BLOOD SPECIMENOrdering Facility: [facility] Address: [address] [place] [address] Result Comment: The [place] Diabetes Association (ADA) provides guidance for cutoff [...] Standards of Medical Care in Diabetes 2016, [place] [employer]. Diabetes Care. 2016.39(Suppl 1). Performed By: #### 2 4323-8 ####[facility] MILLTOWNCLIA [id number] [place] [address] [place] Potassium [Moles/Vol] 3.5 mmol/L Low 3.7-5.1 [facility] Comment on above: Order Comment: Speci men Type: BLOOD SPECIMENOrdering Facility: [facility] Address: [address] [place] [address] Performed By: #### 2 4323-8 ####[facility] MILLTOWNCLIA [id number] [place] [address] [place] Protein [Mass/Vol] 6.9 g/dL Normal 6.3-8.0 [facility] Comment on above: Order Comment: Speci men Type: BLOOD SPECIMENOrdering Facility: [facility] Address: [address] [place] [address] Performed By: #### 2 4323-8 ####[facility]CL[facility] [id number] [place] [address] [place] Sodium [Moles/Vol] 142 mmol/L Normal 136-144 [facility] Comment on above: Order Comment: Speci men Type: BLOOD SPECIMENOrdering Facility: [facility] Address: [address] [place] [address] Performed By: #### 2 4323-8 ####[facility] MILLTOWNCLIA [id number] [place] [address] [place] Urea nitrogen [Mass/Vol] 8 mg/dL Normal 7-21 [facility] Comment on above: Order Comment: Speci men Type: BLOOD SPECIMENOrdering Facility: [facility] Address: [address] [place], [place] [address] Performed By: #### 2 4323-8 ####[facility]CL[facility] [id number] [place] [address] [place] HISTORY PHYSICALon HISTORY PHYSICAL HNO ID: [id number] Author: YUN JOHNSON APRN.CNP Service: ? Author Type: Nurse Practitioner Type: H&P Filed: 07/24/2024 09:48 Note Text: [facility] HISTORY AND PHYSICAL EXAMINATION SERVICE DATE: 07/24/2024 SERVICE TIME: 9:46 AM PRIMARY CARE PHYSICIAN: Neela Lino MD, MD Assessment Patient has the following medical conditions which may affect jack-operative course: Postural orthostatic tachycardia syndrome (POTS) Assessment: controlled on rx, following [facility] and [facility] neurology last OV 03/18/2024, last cardiac OV and cardiac testing requested MIRTA (obstructive sleep apnea) Assessment: non-compliant with CPAP Gastroesophageal reflux disease Assessment: controlled on rx BMI 39.0-39.9,adult Assessment: Body mass index is 39.32 kg/m?. Thyroid nodule Assessment: PCP has under surveillance Anxiety and depression Assessment: stable on rx per pt, h/o SI, but denies repeatedly any current SI/SH/HI. Following with counselor VHD (valvular heart disease) Assessment: pt reports hx leaky valve, most recent cardiac records requested from [facility] ANESTHESIA FINDINGS: Intubation History: No history of difficult intubation Significant Anesthesia Considerations: potential postop nausea/vomiting Airway History: No history of difficult airway Cjea Activity Status Index: METS: Climb a flight of stairs or walk up a hill (5.50 METs) DASI Score: 5.5 Patient denies any chest pain or undue shortness of breath with the above physical activity. Clinical Frailty Scale: 3. Well, with treated comorbid disease STOP-Bang Score: Snores loudly Has been observed to stop breathing or choking/gasping during sleep BMI greater than 35 kg/m2 Has a large neck Denies feeling tired, fatigued, or sleepy during the daytime Denies having high blood pressure Patient 50 years old or younger Non-male patient STOP-Bang Score: 4 [id number] Score: Age: <65 Sex: female CHF history: No Hypertension history: No Stroke/TIA/thromboembolism history: No Vascular disease history: No Diabetes history: No [id number] Score: 1 ARISCAT Score: Age: <=50 Preoperative SpO2: >=96% Respiratory infection in the last month: No Preoperative anemia: No Surgical incision: upper abdominal Duration of surgery: <2 hrs Emergency procedure: No ARISCAT Score: 15 I - PHYSICAL EVALUATION AIRWAY Patient intubated: No. Tracheostomy tube not present Mallampati: I. TM distance: >3 FB. Neck ROM: full ROM without neurological symptoms. Mouth opening: adequate. Short neck: no. Thick neck: yes Novoa present: no Lip Bite Test: I Microretrognathia/Micronagt hia/Recessed Chin: No DENTAL Dental findings: teeth intact. II - ANESTHESIA PLAN Anesthetic Plan: other Beta Reymundo Monitoring Plan Post Procedure Analgesic Plan Prepared for Surgery: optimally prepared for surgery, pending [see comment]. labs CONSULTS: Patient does not require consults for optimization at this time Planned Anesthetic: other anesthesia choice The Following Tests/Procedures Have Been Initiated: Orders Placed This Encounter >CBC + AUTO DIFF Standing Status: Future Number of Occurrences: 1 Expected Date: 07/24/2024 Expiration Date: 10/23/2024 >CMP Standing Status: Future Number of Occurrences: 1 Expected Date: 07/24/2024 Expiration Date: 10/23/2024 REASON FOR VISIT: Ace Leonardo is a 23 year old female who is scheduled for Procedure(s): LAPAROSCOPIC CHOLECYSTECTOMY POSSIBLE OPEN (N/A) at the request of Dr. Ariel Guo for consultation. My final recommendation will be communicated back to the requesting physician by way of shared medical record or letter. Subjective The patient has the following: COVID-19 Immunization Status Current Care Gaps Covid-19 Vaccine () Overdue since 12/16/2023 09/21/2020 Imm Admin: COVID-19 original vaccine, age 12+ yr, monovalent (PFIZER-BIONTECH - PURPLE TOP) 08/31/2020 Imm Admin: COVID-19 original vaccine, age 12+ yr, monovalent (PFIZER-BIONTECH - PURPLE TOP) CHIEF COMPLAINT: Pre-op exam HPI: Ace Leonardo is a 23 year old seen for PAC due to scheduled above surgery because of biliary dyskinesia. 07/22/2024, Dr. Ariel Guo HPI: Ace is a 23 year old female with a complaint of right upper quadrant pain. The patient has had symptoms of right upper quadrant pain for few months. The symptoms have maintained, over the past few months. The pain does radiate to the back and shoulder. Food does aggravate her symptoms. Alleviating factors include: none. The patient was seen by the emergency room physician. Ace underwent an ultrasound and a HIDA scan. These tests demonstrated a decreased gall bladder ejection fraction. The patient is referred for evaluation and treatment. The patient is being seen by me today at the request of Dr. Neela Lino MD, f (more content not included)... Normal [facility] L2100.0000on 07-24-2024 ACCA 25 units Normal 0-90 [facility] Comment on above: Result Comment: Nega tive: <80 Equivocal: 80-90 Positive: >90 Performed By: #### L 2100.0000, L503.5510 ####[facility] [address] [place], [address] ALCA 29 units Normal 0-60 [facility] Comment on above: Result Comment: Nega tive:<55 Equivocal: 55-60 Positive: >60 Performed By: #### L 2100.0000, L503.5510 ####[facility] [address] [place], [address] AMCA 48 units Normal 0-100 [facility] Comment on above: Result Comment: Nega tive: <90 Equivocal: 90-100 Positive: >100 This test was developed and its performance characteristics determined by [facility]. It has not been cleared or approved by the Food and Drug Administration. The FDA has determined that such clearance or approval is not necessary. Performed By: #### L 2100.0000, L503.5510 ####[facility] [address] [place], [address] Atypical pANCA Negative Normal Negative [facility] Comment on above: Performed By: #### L 2100.0000, L503.5510 ####[facility] [address] [place], [address] COMMENT Comment Normal . [facility] Comment on above: Result Comment: Emerald amandeep is not suggestive of Inflammatory Bowel DiseasePerformed at: [facility] - [facility] [address] [facility], [place], [place] [id number] Director: Kiki Tyson MD, Phone: [phone] Performed By: #### L 2100.0000, L554.4063 ####[facility] [address] [place], [address] Swetha 6 units Normal 0-50 [facility] Comment on above: Result Comment: Nega tive: <45 Equivocal: 45-50 Positive: >50 Performed By: #### L 2100.0000, L595.5522 ####[facility] [address] [place], [address] CNPNon [facility] ACE LEONARDO ([id number]) 2 F Date Time Provider Department 07/23/24 ARIEL GUO During your visit today, we recorded the following information about you: Deana Pineda LPN 07/23/2024 2:50 PM Signed Patient calling in wondering if she is able to have the surgery open rather than laparoscopically as she has had a bad reaction being sick for a week with the last laparoscopic surgery she had. She is also wondering if she can have her FMLA paperwork filled out which she will drop off tomorrow and would like it back by Sunday. RAUL Nation Brittney, HERI 07/24/2024 3:28 PM Signed Call received from Pt - name AND verified. Pt questioning if Dr. Guo had a chance to review her question re: open vs. lap genesis that she had called about yesterday. Reassured Pt that it had been forwarded to the surgeon, and we would be in touch with her upon his review and recommendations. She voices understanding. Ann Marie Agudelo RN July 24, 2024 3:28 PM Ariel Guo MD 07/25/2024 10:22 AM Signed Her surgery will be done laparoscopically. We will have medications on board to help her with any nausea or vomiting. Allergies As of Date: 07/23/2024 Noted Allergy Reaction CYCLOBENZAPRINE 07/22/2024 2 - Rash Date Reviewed: 07/22/2024 Reviewed by: Vera Nicholson RN - Fully Assessed Reason for Visit: Patient Question [1187] Prescriptions as of 07/25/2024 - dicyclomine (BENTYL) 20 mg tablet Take 20 mg by mouth three times a day. - ondansetron orally disintegrating (ZOFRAN ODT) 4 mg disintegrating tablet Take 4 mg by mouth every 8 hours as needed. - sucralfate (CARAFATE) 1 gram tablet Take 1 tablet by mouth every 12 hours. - sertraline (ZOLOFT) 100 mg tablet Take 1 tablet by mouth once daily. - traZODone (DESYREL) 50 mg tablet Take 50 mg by mouth at bedtime as needed. For Insomnia - vonoprazan (VOQUEZNA) 10 mg tablet Take 10 mg by mouth once daily. - QELBREE 200 mg capsule, extended release Take 2 capsules by mouth every afternoon. - cetirizine (ZYRTEC) 10 mg tablet Take 1 tablet by mouth once daily. - metoprolol succinate ER (TOPROL XL) 25 mg 24 hr tablet take 1 tablet by mouth every day - L-norgest/e.estradiol-e.est rad (JAIMIESS ORAL) - mecobalamin, vitamin B12, (B12 ACTIVE) 1,000 mcg chew - ketotifen fumarate (ZADITOR) 0.025 % (0.035 %) ophthalmic solution Use 1 Drop in both eyes two times a day as needed. Problem List As Of Date 07/23/2024 Noted Resolved Gastroesophageal reflux disease [K21.9] 09/12/2022 Dizziness [R42] 07/03/2022 Headache [R51] 10/04/2022 Postural orthostatic tachycardia syndrome (POTS*05/17/2022 Pre-op examination [Z01.818] 02/06/2024 MIRTA (obstructive sleep apnea) [G47.33] 02/06/2024 Obesity, Class III, BMI >= 40 [E66.01] 02/06/2024 Encounter Status:Closed by ANN MARIE AGUDELO on 07/24/24 [facility] G[facility] Emptying Studyon Gastric Emptying Study Normal [facility] Myoglobin, Urineon 5 MYOGLOBIN,URINE 2 ng/mL Normal 0-13 [facility] Comment on above: Order Comment: Test( s) 115324-Taodllknj, Urinewas developed and its performance characteristicsdetermined by [facility]. It has not been cleared or approvedby the Food and Drug Administration. Result Comment: Perf ormed at: [facility] [employer] [id number] Director: Kiki Tyson MD, Phone: [phone] Performed By: #### L 3600.5000 ####[facility] [address] [place], [place], [phone] KARINA Comprehensive Panelon KARINA TABLE Comment Normal . [facility] Comment on above: Result Comment: Auto antibody Disease Association ------- Condition Frequency ---------Antinuclear Antibody, SLE, mixed connectiveDirect (KARINA-D) tissue diseases ---------dsDNA SLE 40 - 60% ---------Chromatin Drug induced SLE 90% SLE 48 - 97% ---------SSA (Ro) SLE 25 - 35% Sjogren's Syndrome 40 - 70% Lupus 100% ---------SSB (La) SLE 10% Sjogren's Syndrome 30% ---------Sm (anti-Donovan) SLE 15 - 30% ---------OPERATIONS INTELLIGENCE Mixed Connective Tissue Disease 95%(U1 nRNP, SLE 30 - 50%anti-ribonucleoprotein) Polymyositis and/or Dermatomyositis 20% ---------Scl-70 (antiDNA Scleroderma (diffuse) 20 - 35%topoisomerase) Crest 13% ---------Jasmyn-1 Polymyositis and/or Dermatomyositis 20 - 40% ---------Centromere B Scleroderma - Crest variant 80% AMENDED REPORT 07/22/241207 COMMENT previously reported as: Test not performed Performed By: #### L 501.9520, L3300.1200, L501.3620, L501.6710, L3100.5440, L101.9900, L504.2610, L3300.1800, L3300.0100, L3400.0700, L3900.2100 ####[facility] [address] [place], [place], [phone]) ANTI-CENT B AB <0.2 Normal 0.0-0.9 [facility] Comment on above: Result Comment: AMENDED REPORT 07/22/241207 ANTI-CENT B previously reported as: Test not performed Performed By: #### L 501.9520, L3300.1200, L501.3620, L501.6710, L3100.5440, L101.9900, L504.2610, L3300.1800, L3300.0100, L3400.0700, L3900.2100 ####[facility] [address] [place], [place], [phone] ANTI-DNA (DS)AB <1 Normal 0-9 [facility] Comment on above: Result Comment: Nega tive <5 Equivocal 5 - 9 Positive >9 AMENDED REPORT 07/22/241207 dsDNA AB previously reported as: Test not performed Performed By: #### L 501.9520, L3300.1200, L501.3620, L501.6710, L3100.5440, L101.9900, L504.2610, L3300.1800, L3300.0100, L3400.0700, L3900.2100 ####[facility] [address] [place], [address] ANTI-JASMYN-1 <0.2 Normal 0.0-0.9 [facility] Comment on above: Result Comment: AMENDED REPORT 07/22/241207 ANTI-JASMYN previously reported as: Test not performed Performed By: #### L 501.9520, L3300.1200, L501.3620, L501.6710, L3100.5440, L101.9900, L504.2610, L3300.1800, L3300.0100, L3400.0700, L3900.2100 ####[facility] [address] [place], [address] ANTI-SS-A < 0.2 Normal 0.0-0.9 [facility] Comment on above: Result Comment: AMENDED REPORT 07/22/241207 Anti-SS-A previously reported as: Test not performed Performed By: #### L 501.9520, L3300.1200, L501.3620, L501.6710, L3100.5440, L101.9900, L504.2610, L3300.1800, L3300.0100, L3400.0700, L3900.2100 ####[facility] [address] [place], [address] ANTI-SS-B < 0.2 Normal 0.0-0.9 [facility] Comment on above: Result Comment: AMENDED REPORT 07/22/241207 Anti-SS-B previously reported as: Test not performed Performed By: #### L 501.9520, L3300.1200, L501.3620, L501.6710, L3100.5440, L101.9900, L504.2610, L3300.1800, L3300.0100, L3400.0700, L3900.2100 ####[facility] [address] [place], [address] ANTICHROMATIN <0.2 Normal 0.0-0.9 [facility] Comment on above: Result Comment: AMENDED REPORT 07/22/241207 ANTICHROMATIN previously reported as: Test not performed Performed By: #### L 501.9520, L3300.1200, L501.3620, L501.6710, L3100.5440, L101.9900, L504.2610, L3300.1800, L3300.0100, L3400.0700, L3900.2100 ####[facility] [address] [place], [address] ANTISCLERODERM <0.2 Normal 0.0-0.9 [facility] Comment on above: Result Comment: AMENDED REPORT 07/22/241207 ANTISCLER previously reported as: Test not performed Performed By: #### L 501.9520, L3300.1200, L501.3620, L501.6710, L3100.5440, L101.9900, L504.2610, L3300.1800, L3300.0100, L3400.0700, L3900.2100 ####[facility] [address] [place], [address] OPERATIONS INTELLIGENCE Ab <0.2 Normal 0.0-0.9 [facility] Comment on above: Result Comment: AMENDED REPORT 07/22/241207 [employer] Ab previously reported as: Test not performed Performed By: #### L 501.9520, L3300.1200, L501.3620, L501.6710, L3100.5440, L101.9900, L504.2610, L3300.1800, L3300.0100, L3400.0700, L3900.2100 ####[facility] [address] [place], [address] DONOVAN Ab <0.2 Normal 0.0-0.9 [facility] Comment on above: Result Comment: AMENDED REPORT 07/22/241207 DONOVAN Ab previously reported as: Test not performed Performed By: #### L 501.9520, L3300.1200, L501.3620, L501.6710, L3100.5440, L101.9900, L504.2610, L3300.1800, L3300.0100, L3400.0700, L3900.2100 ####[facility] [address] [place], [place], [address] Alpha Antitrypsin Serumon ALPHA1 ANTITRYP 203 mg/dL Abnormal 100-188 [facility] Comment on above: Result Comment: Perf ormed at: [facility] [address] [id number] Director: Rodney Jonas PhD, Phone: [phone] Performed By: #### L 501.9520, L3300.1200, L501.3620, L501.6710, L3100.5440, L101.9900, L504.2610, L3300.1800, L3300.0100, L3400.0700, L3900.2100 ####[facility] [address] [place], [place], [phone] CNOVon 07-22-2024 CNOV Office Visit (GENSWS ) ACE LEONARDO Jose Manuel ([id number]) 2 F Date Time Provider Department 07/22/24 9:00 AM ARIEL GUO During your visit today, we recorded the following information about you: Temperature Pulse Blood pressure Weight 97.1 degrees 97/minute 118/78 99.2 kg Height 1.575 m Ariel Guo MD 07/22/2024 10:45 AM Signed HISTORY AND PHYSICAL Ace Jose Manuel Jorden 2000 REFERRING PHYSICIAN: Neela Lino MD, MD CHIEF COMPLAINT: Consult (hernia) HPI: Ace is a 23 year old female with a complaint of right upper quadrant pain. The patient has had symptoms of right upper quadrant pain for few months. The symptoms have maintained, over the past few months. The pain does radiate to the back and shoulder. Food does aggravate her symptoms. Alleviating factors include: none. The patient was seen by the emergency room physician. Ace underwent an ultrasound and a HIDA scan. These tests demonstrated a decreased gall bladder ejection fraction. The patient is referred for evaluation and treatment. The patient is being seen by me today at the request of Dr. Neela Lino MD, MD for my opinion and advice regarding Biliary dyskinesia (primary encounter diagnosis) Ruq abdominal pain. SIGNIFICANT MEDICAL PROBLEMS: PAST MEDICAL HISTORY Diagnosis Date Chronic bilateral low back pain with left-sided sciatica Class 3 severe obesity due to excess calories without serious comorbidity with body mass index (BMI) of 40.0 to 44.9 in adult ([facility]) Gastroesophageal reflux disease, unspecified whether esophagitis present GERD (gastroesophageal reflux disease) Morbid obesity with BMI of 40.0-44.9, adult ([facility]) Obstructive sleep apnea POTS (postural orthostatic tachycardia syndrome) Regurgitation of food Sciatica of left side Spinal stenosis of lumbar region without neurogenic claudication OPERATIONS: PAST SURGICAL HISTORY Procedure Laterality Date EGD WITH BIOPSY(S) 11/16/2023 Dr. Guo EGD WITH BIOPSY(S) 02/06/2024 Dr. Boone MANOMETRY ESOPHAGEAL 02/06/2024 Dr. Boone PH SMALLS INSERT OFF MEDS 02/06/2024 Dr. Boone CURRENT MEDICATIONS: Current Outpatient Medications Medication Sig Dispense Refill dicyclomine (BENTYL) 20 mg tablet Take 20 mg by mouth three times a day. ondansetron orally disintegrating (ZOFRAN ODT) 4 mg disintegrating tablet Take 4 mg by mouth every 8 hours as needed. sucralfate (CARAFATE) 1 gram tablet Take 1 tablet by mouth every 12 hours. sertraline (ZOLOFT) 100 mg tablet Take 1 tablet by mouth once daily. traZODone (DESYREL) 50 mg tablet Take 50 mg by mouth at bedtime as needed. For Insomnia vonoprazan (VOQUEZNA) 10 mg tablet Take 10 mg by mouth once daily. QELBREE 200 mg capsule, extended release Take 2 capsules by mouth every afternoon. cetirizine (ZYRTEC) 10 mg tablet Take 1 tablet by mouth once daily. 30 tablet 2 atomoxetine (STRATTERA) 40 mg capsule Take 40 mg by mouth once daily. metoprolol succinate ER (TOPROL XL) 25 mg 24 hr tablet take 1 tablet by mouth every day 30 tablet 3 L-norgest/e.estradiol-e.est rad (JAIMIESS ORAL) mecobalamin, vitamin B12, (B12 ACTIVE) 1,000 mcg chew Fluticasone Furoate (FLONASE SENSIMIST) 27.5 mcg/actuation nasal spray Use 1 [place] in each nostril two times a day. 9.1 mL 4 ketotifen fumarate (ZADITOR) 0.025 % (0.035 %) ophthalmic solution Use 1 Drop in both eyes two times a day as needed. 10 mL 4 omeprazole (PRILOSEC) 40 mg capsule (Patient not taking: Reported on 07/22/2024) omeprazole (PRILOSEC) 20 mg capsule Takes 40mg before breakfast and 20mg before dinner (Patient not taking: Reported on 07/22/2024) No current facility-administered medications for this visit. ALLERGIES: Cyclobenzaprine PERSONAL HISTORY: Social History Tobacco Use Smoking status: Never Smokeless tobacco: Never Vaping Use Vaping status: Never Used Substance Use Topics Alcohol use: Not Currently Drug use: Never FAMILY HISTORY: FAMILY HISTORY Problem Relation Age of Onset Seizures Maternal Grandmother Heart Unknown maternal and paternal side Hypertension Unknown maternal great mother Cancer Unknown brain cancer- maternal great aunt other (hearing problems [Other]) Unknown maternal grandmother REVIEW OF SYMPTOMS: The review of systems data was entered by the nurse and reviewed by me There are no exam notes on file for this visit. PHYSICAL EXAMINATION: General: The patient is 23 year old female, well nourished, well hydrated in no acute distress. The patient is oriented to time, place, and person. VITALS: Blood pressure 118/78, pulse 97, temperature 36.2 ?C (97.1 ?F), height 157.5 cm (5' 2), weight 99.2 kg (218 lb 9.6 oz), SpO2 98%. Body mass index is 39.98 kg/m?. HEENT: Normal cephalic, ataumatic, pupils are equally round, sclera are anicteric, mucous membranes are moist, oropharynx i (more content not included)... Normal [facility] Diann 07-22-2024 [facility] Telephone ([employer]) ACE LEONARDO ([id number]) 2 F Date Time Provider Department 07/22/24 ARIEL GUO GENNIVIA During your visit today, we recorded the following information about you: Ivis Richter LPN 07/22/2024 2:31 PM Signed Patient calling and inquiring on moving up her surgery date if possible? She is scheduled to go on a vacation in August. RAUL Parker Jamie 07/22/2024 2:49 PM Signed rescheduled to 07-30-2024 Allergies As of Date: 07/22/2024 Noted Allergy Reaction CYCLOBENZAPRINE 07/22/2024 2 - Rash Date Reviewed: 07/22/2024 Reviewed by: Vera Nicholson, HERI - Fully Assessed Reason for Visit: Schedule Surgery [1330] Prescriptions as of 07/25/2024 - dicyclomine (BENTYL) 20 mg tablet Take 20 mg by mouth three times a day. - ondansetron orally disintegrating (ZOFRAN ODT) 4 mg disintegrating tablet Take 4 mg by mouth every 8 hours as needed. - sucralfate (CARAFATE) 1 gram tablet Take 1 tablet by mouth every 12 hours. - sertraline (ZOLOFT) 100 mg tablet Take 1 tablet by mouth once daily. - traZODone (DESYREL) 50 mg tablet Take 50 mg by mouth at bedtime as needed. For Insomnia - vonoprazan (VOQUEZNA) 10 mg tablet Take 10 mg by mouth once daily. - QELBREE 200 mg capsule, extended release Take 2 capsules by mouth every afternoon. - cetirizine (ZYRTEC) 10 mg tablet Take 1 tablet by mouth once daily. - metoprolol succinate ER (TOPROL XL) 25 mg 24 hr tablet take 1 tablet by mouth every day - L-norgest/e.estradiol-e.est rad (JAIMIESS ORAL) - mecobalamin, vitamin B12, (B12 ACTIVE) 1,000 mcg chew - ketotifen fumarate (ZADITOR) 0.025 % (0.035 %) ophthalmic solution Use 1 Drop in both eyes two times a day as needed. Problem List As Of Date 07/22/2024 Noted Resolved Gastroesophageal reflux disease [K21.9] 09/12/2022 Dizziness [R42] 07/03/2022 Headache [R51] 10/04/2022 Postural orthostatic tachycardia syndrome (POTS*05/17/2022 Pre-op examination [Z01.818] 02/06/2024 MIRTA (obstructive sleep apnea) [G47.33] 02/06/2024 Obesity, Class III, BMI >= 40 [E66.01] 02/06/2024 Encounter Status:Closed by IV[facility] LEONARD[facility] ([id number]) 2 F Date Time Provider Department 07/22/24 ARIEL GUO [employer] During your visit today, we recorded the following information about you: Jared Mann 07/22/2024 12:29 PM Signed 09-03-2024 [facility] Allergies As of Date: 07/22/2024 Noted Allergy Reaction CYCLOBENZAPRINE 07/22/2024 2 - Rash Date Reviewed: 07/22/2024 Reviewed by: Vera Nicholson, HERI - Fully Assessed Prescriptions as of 10/16/2024 - clindamycin (CLEOCIN) 300 mg capsule Take 1 capsule by mouth three times a day for 10 days. - cetirizine (ZYRTEC) 10 mg tablet TAKE 1 TABLET BY MOUTH EVERY DAY - omeprazole (PRILOSEC) 40 mg capsule Take 40 mg by mouth once daily. - dicyclomine (BENTYL) 20 mg tablet Take 20 mg by mouth three times a day. - ondansetron orally disintegrating (ZOFRAN ODT) 4 mg disintegrating tablet Take 4 mg by mouth every 8 hours as needed. - sertraline (ZOLOFT) 100 mg tablet Take 1 tablet by mouth once daily. - traZODone (DESYREL) 50 mg tablet Take 50 mg by mouth at bedtime as needed. For Insomnia - vonoprazan (VOQUEZNA) 10 mg tablet Take 10 mg by mouth once daily. - QELBREE 200 mg capsule, extended release Take 2 capsules by mouth every afternoon. - metoprolol succinate ER (TOPROL XL) 25 mg 24 hr tablet take 1 tablet by mouth every day - L-norgest/e.estradiol-e.est rad (JAIMIESS ORAL) Take 1 tablet by mouth once daily. - mecobalamin, vitamin B12, (B12 ACTIVE) 1,000 mcg chew Take 2,000 mcg by mouth once daily. - ketotifen fumarate (ZADITOR) 0.025 % (0.035 %) ophthalmic solution Use 1 Drop in both eyes two times a day as needed. Problem List As Of Date 07/22/2024 Noted Resolved Gastroesophageal reflux disease [K21.9] 09/12/2022 Dizziness [R42] 07/03/2022 Headache [R51] 10/04/2022 Postural orthostatic tachycardia syndrome (POTS*05/17/2022 Pre-op examination [Z01.818] 02/06/2024 MIRTA (obstructive sleep apnea) [G47.33] 02/06/2024 Obesity, Class III, BMI >= 40 [E66.813] 02/06/2024 Encounter Status:Closed by JARED MANN on 10/16/24 Normal [facility] Basic Metabolic Profile (BMP )on 07-21-2024 BUN Normal 08-02 [facility] Comment on above: Result Comment: Canc elled via OM: Order cancelled - Patient discharged Performed By: #### L 500.2500, L100.0500 ####[facility] [address] [place], [address] BUN/CRE Normal 10-20 [facility] Comment on above: Result Comment: Canc elled via OM: Order cancelled - Patient discharged Performed By: #### L 500.2500, L100.0500 ####[facility] [address] [place], [address] Calcium Normal 7.6-11.0 [facility] Comment on above: Result Comment: Canc elled via OM: Order cancelled - Patient discharged Performed By: #### L 500.2500, L100.0500 ####[facility] [address] [place], [address] CL Normal 98-108 [facility] Comment on above: Result Comment: Canc elled via OM: Order cancelled - Patient discharged Performed By: #### L 500.2500, L100.0500 ####[facility] [address] [place], [address] CO2 Normal 21.0-32.0 [facility] Comment on above: Result Comment: Canc elled via OM: Order cancelled - Patient discharged Performed By: #### L 500.2500, L100.0500 ####[facility] [address] [place], [address] CREAT,SERUM Normal 0.70-1.20 [facility] Comment on above: Result Comment: Canc elled via OM: Order cancelled - Patient discharged Performed By: #### L 500.2500, L100.0500 ####[facility] [address] [place], [address] eGFR Normal >60 [facility] Comment on above: Result Comment: Canc elled via OM: Order cancelled - Patient discharged Performed By: #### L 500.2500, L100.0500 ####[facility] [address] [place], [address] GAP Normal 5-15 [facility] Comment on above: Result Comment: Canc elled via OM: Order cancelled - Patient discharged Performed By: #### L 500.2500, L100.0500 ####[facility] [address] [place], [address] GLU Normal 70-99 [facility] Comment on above: Result Comment: Canc elled via OM: Order cancelled - Patient discharged Performed By: #### L 500.2500, L100.0500 ####[facility] [address] [place], [address] Potassium Normal 3.3-5.1 [facility] Comment on above: Result Comment: Canc elled via OM: Order cancelled - Patient discharged Performed By: #### L 500.2500, L100.0500 ####[facility] [address] [place], [address] Basic Metabolic Profile (BMP) Normal 133-145 [facility] Comment on above: Result Comment: Canc elled via OM: Order cancelled - Patient discharged Performed By: #### L 500.2500, L100.0500 ####[facility] [address] [place], [address] CBC-Complete Blood Cnt No Di ffon 07-21-2024 HCT Normal 37-47 [facility] Comment on above: Result Comment: Canc elled via OM: Order cancelled - Patient discharged Performed By: #### L 500.2500, L100.0500 ####[facility] [address] [place], [address] HGB Normal 12.0-15.0 [facility] Comment on above: Result Comment: Canc elled via OM: Order cancelled - Patient discharged Performed By: #### L 500.2500, L100.0500 ####[facility] [address] [place], [address] MCH Normal 27.0-32.0 [facility] Comment on above: Result Comment: Canc elled via OM: Order cancelled - Patient discharged Performed By: #### L 500.2500, L100.0500 ####[facility] [address] [place], [address] MCHC Normal 32-36 [facility] Comment on above: Result Comment: Canc elled via OM: Order cancelled - Patient discharged Performed By: #### L 500.2500, L100.0500 ####[facility] [address] [place], [address] MCV Normal 81-99 [facility] Comment on above: Result Comment: Canc elled via OM: Order cancelled - Patient discharged Performed By: #### L 500.2500, L100.0500 ####[facility] [address] [place], [address] PLT Normal 150-450 [facility] Comment on above: Result Comment: Canc elled via OM: Order cancelled - Patient discharged Performed By: #### L 500.2500, L100.0500 ####[facility] [address] [place], [address] RBC Normal 4.2-5.4 [facility] Comment on above: Result Comment: Canc elled via OM: Order cancelled - Patient discharged Performed By: #### L 500.2500, L100.0500 ####[facility] [address] [place], [address] RDW CV Normal 11.6-14.6 [facility] Comment on above: Result Comment: Canc elled via OM: Order cancelled - Patient discharged Performed By: #### L 500.2500, L100.0500 ####[facility] [address] [place], [address] RDW SD Normal 35.1-43.9 [facility] Comment on above: Result Comment: Canc elled via OM: Order cancelled - Patient discharged Performed By: #### L 500.2500, L100.0500 ####[facility] [address] [place], [address] WBC Normal 4.4-11.0 [facility] Comment on above: Result Comment: Canc elled via OM: Order cancelled - Patient discharged Performed By: #### L 500.2500, L100.0500 ####[facility] [address] [place], [address] Discharge Instructionon 0 Discharge Instruction Normal [facility] L509.6001on 07-20-2024 CORTISOL 36.20 ug/dL High 6.02-18.40 [facility] Comment on above: Order Comment: Must be drawn 30-60 min AFTER cosyntropin admin. Performed By: #### L 509.6001 ####[facility] [address] [place], [address] CORTISOL 7.17 ug/dL Normal 6.02-18.40 [facility] Comment on above: Order Comment: must be performed shortly BEFORE cosyntropin admin Performed By: #### L 509.6001 ####[facility] [address] [place], [address] Ammoniaon 07-19-2024 Ammonia (P) [Moles/Vol] 20.7 umol/L Normal 11-51 [facility] Comment on above: Performed By: #### L 2100.0000, L503.5510 ####[facility] [address] [place], [address] Basic Metabolic Profile (BMP )on 07-19-2024 BUN/CRE 10.6 RATIO Normal 10-20 [facility] Comment on above: Performed By: #### L 100.0100, L500.2500 ####[facility] [address] [place], [address] Calcium [Mass/Vol] 8.7 mg/dL Normal 7.6-11.0 [facility] Comment on above: Performed By: #### L 100.0100, L500.2500 ####[facility] [address] [place], [address] Chloride [Moles/Vol] 105 mmol/L Normal 98-108 [facility] Comment on above: Performed By: #### L 100.0100, L500.2500 ####[facility] [address] [place], [address] CO2 [Moles/Vol] 17.8 mmol/L Low 21.0-32.0 [facility] Comment on above: Performed By: #### L 100.0100, L500.2500 ####[facility] [address] [place], [address] Creatinine [Mass/Vol] 0.69 mg/dL Low 0.70-1.[address] [facility] Comment on above: Performed By: #### L 100.0100, L500.2500 ####[facility] [address] [place], [address] ECRCL 138.30 ml/min Normal 50-250 [facility] Comment on above: Performed By: #### L 100.0100, L500.2500 ####[facility] [address] [place], [address] GAP 17 High 5-15 [facility] Comment on above: Performed By: #### L 100.0100, L500.2500 ####[facility] [address] [place], [address] GFR/1.73 sq M.predicted among non-blacks MDRD (S/P/Bld) [Vol rate/Area] 126 mL/min/{1.73_m2} Normal >60 [facility] Comment on above: Result Comment: mL/m in/1.73m2 CKD-EPI Creatinine Equation (2020) Performed By: #### L 100.0100, L500.2500 ####[facility] [address] [place], [address] Glucose [Mass/Vol] 72 mg/dL Normal 70-99 [facility] Comment on above: Performed By: #### L 100.0100, L500.2500 ####[facility] [address] [place], [address] Potassium [Moles/Vol] 3.6 mmol/L Normal 3.3-5.[address] [facility] Comment on above: Performed By: #### L 100.0100, L500.2500 ####[facility] [address] [place], [address] Sodium [Moles/Vol] 140 mmol/L Normal 133-145 [facility] Comment on above: Performed By: #### L 100.0100, L500.2500 ####[facility] [address] [place], [address] Urea nitrogen [Mass/Vol] 7 mg/dL Normal 4-19 [facility] Comment on above: Performed By: #### L 100.0100, L500.2500 ####[facility] [address] [place], [address] CBC W/Diff, Automatedon 04-0 5-2025 Absolute Lymph 2.14 X10 3/uL Normal 0.83-4.51 [facility] Comment on above: Performed By: #### L 100.0100, L500.2500 ####[facility] [address] [place], [address] Absolute Neut 3.3 X10 3/uL Normal 2.0-7.7 [facility] Comment on above: Performed By: #### L 100.0100, L500.2500 ####[facility] [address] [place], [address] Basophils/100 WBC (Bld) 0.7 % Normal 0-1 [facility] Comment on above: Performed By: #### L 100.0100, L500.2500 ####[facility] [address] [place], [address] Eosinophils/100 WBC (Bld) 1.5 % Normal 0-5 [facility] Comment on above: Performed By: #### L 100.0100, L500.2500 ####[facility] [address] [place], [address] Erythrocyte distribution width (RBC) [Ratio] 14.3 % Normal 11.6-14.6 [facility] Comment on above: Performed By: #### L 100.0100, L500.2500 ####[facility] [address] [place], [address] Hematocrit (Bld) [Volume fraction] 37.3 % Normal 37-47 [facility] Comment on above: Performed By: #### L 100.0100, L500.2500 ####[facility] [address] [place], [address] Hemoglobin (Bld) [Mass/Vol] 12.0 g/dL Normal 12.0-15.0 [facility] Comment on above: Performed By: #### L 100.0100, L500.2500 ####[facility] [address] [place], [address] IG% 0.200 Normal 0.0-0.9 [facility] Comment on above: Result Comment: IG% - Immature Granulocytes (promyelocytes, myelocytes andmetamyelocytes) > 1% indicates that a LEFT SHIFT is Present. Performed By: #### L 100.0100, L500.2500 ####[facility] [address] [place], [address] Lymphocytes/100 WBC (Bld) 35.0 % Normal 19-41 [facility] Comment on above: Performed By: #### L 100.0100, L500.2500 ####[facility] [address] [place], [address] MCH (RBC) [Entitic mass] 27.3 pg Normal 27.0-32.0 [facility] Comment on above: Performed By: #### L 100.0100, L500.2500 ####[facility] [address] [place], [address] MCHC (RBC) [Mass/Vol] 32.2 g/dL Normal 32-[address] [facility] Comment on above: Performed By: #### L 100.0100, L500.2500 ####[facility] [address] [place], [address] MCV (RBC) [Entitic vol] 85.0 fL Normal 81-99 [facility] Comment on above: Performed By: #### L 100.0100, L500.2500 ####[facility] [address] [place], [address] Monocytes/100 WBC (Bld) 8.7 % Normal 0-10 [facility] Comment on above: Performed By: #### L 100.0100, L500.2500 ####[facility] [address] [place], [address] Neutrophils/100 WBC (Bld) 53.9 % Normal 47-70 [facility] Comment on above: Performed By: #### L 100.0100, L500.2500 ####[facility] [address] [place], [address] Nucleated RBC (Bld) [#/Vol] 0 10*3/uL Normal 0-5 [facility] Comment on above: Performed By: #### L 100.0100, L500.2500 ####[facility] [address] [place], [address] Platelet mean volume (Bld) [Entitic vol] 11.4 fL Normal 6.2-12.0 [facility] Comment on above: Performed By: #### L 100.0100, L500.2500 ####[facility] [address] [place], [address] Platelets (Bld) [#/Vol] 297 10*3/uL Normal 150-450 [facility] Comment on above: Performed By: #### L 100.0100, L500.2500 ####[facility] [address] [place], [address] RBC (Bld) [#/Vol] 4.39 10*6/uL Normal 4.2-5.4 [facility] Comment on above: Performed By: #### L 100.0100, L500.2500 ####[facility] [address] [place], [place], RDW SD 44.0 fl High 35.1-43.9 [facility] Comment on above: Performed By: #### L 100.0100, L500.2500 ####[facility] [address] [place], [address] WBC (Bld) [#/Vol] 6.1 10*3/uL Normal 4.4-11.0 [facility] Comment on above: Performed By: #### L 100.0100, L500.2500 ####[facility] [address] [place], [address] CPK Total, Creatine Kinaseon 07-19-2024 CPK TOTAL 124 U/L Normal 24-195 [facility] Comment on above: Performed By: #### L 501.9520, L3300.1200, L501.3620, L501.6710, L3100.5440, L101.9900, L504.2610, L3300.1800, L3300.0100, L3400.0700, L3900.2100 ####[facility] [address] [place], [address] CRPon 07-19-2024 C-REACTIVE PROT 24.30 mg/L High 0.0-3.0 [facility] Comment on above: Performed By: #### L 501.9520, L3300.1200, L501.3620, L501.6710, L3100.5440, L101.9900, L504.2610, L3300.1800, L3300.0100, L3400.0700, L3900.2100 ####[facility] [address] [place], [address] Catachol+VMA, 24 HR URon Dopamine, Urine Normal Not Estab. [facility] Comment on above: Result Comment: PEDRO ENT DISCHARGED BEFORE COLLECTED Performed By: #### L 3600.0055 ####[facility] [address] [place], [address] Dopamine,U,24HR Normal 65-610 [facility] Comment on above: Result Comment: PEDRO ENT DISCHARGED BEFORE COLLECTED Performed By: #### L 3600.0055 ####[facility] [address] [place], [address] Epineph.,U,24HR Normal 0-24 [facility] Comment on above: Result Comment: PEDRO ENT DISCHARGED BEFORE COLLECTED Performed By: #### L 3600.0055 ####[facility] [address] [place], [address] Epinephrine, U Normal Not Estab. [facility] Comment on above: Result Comment: PEDRO ENT DISCHARGED BEFORE COLLECTED Performed By: #### L 3600.0055 ####[facility] [address] [place], [address] Norepin.,U,24HR Normal 0-140 [facility] Comment on above: Result Comment: PEDRO ENT DISCHARGED BEFORE COLLECTED Performed By: #### L 3600.0055 ####[facility] [address] [place], [address] Norepinephrin,U Normal Not Estab. [facility] Comment on above: Result Comment: PEDRO ENT DISCHARGED BEFORE COLLECTED Performed By: #### L 3600.0055 ####[facility] [address] [place], [address] VMA, Urine Normal Not Estab. [facility] Comment on above: Result Comment: PEDRO ENT DISCHARGED BEFORE COLLECTED Performed By: #### L 3600.0055 ####[facility] [address] [place], [address] VMA, Urine,24HR Normal 1.8-6.7 [facility] Comment on above: Result Comment: PEDRO ENT DISCHARGED BEFORE COLLECTED Performed By: #### L 3600.0055 ####[facility] [address] [place], [address] Erythrocyte Sed Rateon 07-19 SED RATE 6 mm/hr Normal 0-30 [facility] Comment on above: Performed By: #### L 501.9520, L3300.1200, L501.3620, L501.6710, L3100.5440, L101.9900, L504.2610, L3300.1800, L3300.0100, L3400.0700, L3900.2100 ####[facility] [address] [place], [address] LDHon 07-19-2024 LDH 168 U/L Normal 84-246 [facility] Comment on above: Order Comment: 1 Result Comment: Hemo lysis present, Results??could be affected.?? Performed By: #### L 501.9520, L3300.1200, L501.3620, L501.6710, L3100.5440, L101.9900, L504.2610, L3300.1800, L3300.0100, L3400.0700, L3900.2100 ####[facility] [address] [place], [address] MR/CON.PCM.GIon 07-19-2024 MR/CON.PCM.GI Normal [facility] Thyroid Stim Hormone (TSH)on 07-19-2024 TSH 4.000 uIU/mL Normal 0.300-4.200 [facility] Comment on above: Performed By: #### L 501.9520, L3300.1200, L501.3620, L501.6710, L3100.5440, L101.9900, L504.2610, L3300.1800, L3300.0100, L3400.0700, L3900.2100 ####[facility] [address] [place], [address] CBC W/Diff, Automatedon Absolute Lymph 1.94 X10 3/uL Normal 0.83-4.51 [facility] Comment on above: Performed By: #### L 100.0100, L500.4050, L501.2450 ####[facility] [address] [place], [address] Absolute Neut 5.4 X10 3/uL Normal 2.0-7.7 [facility] Comment on above: Performed By: #### L 100.0100, L500.4050, L501.2450 ####[facility] [address] [place], [address] Basophils/100 WBC (Bld) 0.6 % Normal 0-1 [facility] Comment on above: Performed By: #### L 100.0100, L500.4050, L501.2450 ####[facility] [address] [place], [address] Eosinophils/100 WBC (Bld) 0.6 % Normal 0-5 [facility] Comment on above: Performed By: #### L 100.0100, L500.4050, L501.2450 ####[facility] [address] [place], [address] Erythrocyte distribution width (RBC) [Ratio] 14.5 % Normal 11.6-14.6 [facility] Comment on above: Performed By: #### L 100.0100, L500.4050, L501.2450 ####[facility] [address] [place], [address] Hematocrit (Bld) [Volume fraction] 44.4 % Normal 37-47 [facility] Comment on above: Performed By: #### L 100.0100, L500.4050, L501.2450 ####[facility] [address] [place], [address] Hemoglobin (Bld) [Mass/Vol] 14.2 g/dL Normal 12.0-15.0 [facility] Comment on above: Performed By: #### L 100.0100, L500.4050, L501.2450 ####[facility] [address] [place], [address] IG% 0.400 Normal 0.0-0.9 [facility] Comment on above: Result Comment: IG% - Immature Granulocytes (promyelocytes, myelocytes andmetamyelocytes) > 1% indicates that a LEFT SHIFT is Present. Performed By: #### L 100.0100, L500.4050, L501.2450 ####[facility] [address] [place], [address] Lymphocytes/100 WBC (Bld) 23.8 % Normal 19-41 [facility] Comment on above: Performed By: #### L 100.0100, L500.4050, L501.2450 ####[facility] [address] [place], [address] MCH (RBC) [Entitic mass] 26.9 pg Low 27.0-32.0 [facility] Comment on above: Performed By: #### L 100.0100, L500.4050, L501.2450 ####[facility] [address] [place], [address] MCHC (RBC) [Mass/Vol] 32.0 g/dL Normal 32-[address] [facility] Comment on above: Performed By: #### L 100.0100, L500.4050, L501.2450 ####[facility] [address] [place], [address] MCV (RBC) [Entitic vol] 84.1 fL Normal 81-99 [facility] Comment on above: Performed By: #### L 100.0100, L500.4050, L501.2450 ####[facility] [address] [place], [address] Monocytes/100 WBC (Bld) 8.7 % Normal 0-10 [facility] Comment on above: Performed By: #### L 100.0100, L500.4050, L501.2450 ####[facility] [address] [place], [address] Neutrophils/100 WBC (Bld) 65.9 % Normal 47-70 [facility] Comment on above: Performed By: #### L 100.0100, L500.4050, L501.2450 ####[facility] [address] [place], [address] Nucleated RBC (Bld) [#/Vol] 0 10*3/uL Normal 0-5 [facility] Comment on above: Performed By: #### L 100.0100, L500.4050, L501.2450 ####[facility] [address] [place], [address] Platelet mean volume (Bld) [Entitic vol] 10.9 fL Normal 6.2-12.0 [facility] Comment on above: Performed By: #### L 100.0100, L500.4050, L501.2450 ####[facility] [address] [place], [address] Platelets (Bld) [#/Vol] 405 10*3/uL Normal 150-450 [facility] Comment on above: Performed By: #### L 100.0100, L500.4050, L501.2450 ####[facility] [address] [place], [address] RBC (Bld) [#/Vol] 5.28 10*6/uL Normal 4.2-5.4 [facility] Comment on above: Performed By: #### L 100.0100, L500.4050, L501.2450 ####[facility] [address] [place], [address] RDW SD 44.0 fl High 35.1-43.9 [facility] Comment on above: Performed By: #### L 100.0100, L500.4050, L501.2450 ####[facility] [address] [place], [address] WBC (Bld) [#/Vol] 8.2 10*3/uL Normal 4.4-11.0 [facility] Comment on above: Performed By: #### L 100.0100, L500.4050, L501.2450 ####[facility] [address] [place], [address] Diann 07-18-2024 FORTUNATO Telephone (JULIOCESAR) ACE LEONARDO ([id number]) 2 F Date Time Provider Department 07/18/24 ARIEL GUO During your visit today, we recorded the following information about you: Syeda Neil LPN 07/18/2024 9:58 AM Signed [facility] and spoke with Nurse Arlene, to request office notes indicating patient with hernia. Per Arlene they have office visit notes that are not completed but what she is seeing nothing indicative of hernia. Arlene nurse, states she will contact provider at their office to see if she is missing something as well and will call back. RAUL Richter Jessica, LPN 07/21/2024 8:10 AM Signed Nurse called back and states they do not have any documentation on file for a hernia. Deana Pineda LPN Allergies As of Date: 07/18/2024 (No Known Allergies) Date Reviewed: 06/02/2024 Reviewed by: Sapphire Warren LPN - Fully Assessed Reason for Visit: Appointment [186] Request Outside Medical Records [[id number]] Prescriptions as of 07/28/2024 - dicyclomine (BENTYL) 20 mg tablet Take 20 mg by mouth three times a day. - ondansetron orally disintegrating (ZOFRAN ODT) 4 mg disintegrating tablet Take 4 mg by mouth every 8 hours as needed. - sucralfate (CARAFATE) 1 gram tablet Take 1 tablet by mouth every 12 hours. - sertraline (ZOLOFT) 100 mg tablet Take 1 tablet by mouth once daily. - traZODone (DESYREL) 50 mg tablet Take 50 mg by mouth at bedtime as needed. For Insomnia - vonoprazan (VOQUEZNA) 10 mg tablet Take 10 mg by mouth once daily. - QELBREE 200 mg capsule, extended release Take 2 capsules by mouth every afternoon. - cetirizine (ZYRTEC) 10 mg tablet Take 1 tablet by mouth once daily. - metoprolol succinate ER (TOPROL XL) 25 mg 24 hr tablet take 1 tablet by mouth every day - L-norgest/e.estradiol-e.est rad (JAIMIESS ORAL) - mecobalamin, vitamin B12, (B12 ACTIVE) 1,000 mcg chew - ketotifen fumarate (ZADITOR) 0.025 % (0.035 %) ophthalmic solution Use 1 Drop in both eyes two times a day as needed. Problem List As Of Date 07/18/2024 Noted Resolved Gastroesophageal reflux disease [K21.9] 09/12/2022 Dizziness [R42] 07/03/2022 Headache [R51] 10/04/2022 Postural orthostatic tachycardia syndrome (POTS*05/17/2022 Pre-op examination [Z01.818] 02/06/2024 MIRTA (obstructive sleep apnea) [G47.33] 02/06/2024 Obesity, Class III, BMI >= 40 [E66.01] 02/06/2024 Encounter Status:Closed by SYEDA NEIL on 07/28/24 Normal [facility] Metabolic Prof juvenal 07-18-2024 Albumin [Mass/Vol] 4.9 g/dL Normal 3.5-5.0 [facility] Comment on above: Performed By: #### L 100.0100, L500.4050, L501.2450 ####[facility] [address] [place], [address] Albumin/Globulin [Mass ratio] 1.4 {ratio} Normal 0.9-2.4 [facility] Comment on above: Performed By: #### L 100.0100, L500.4050, L501.2450 ####[facility] [address] [place], [address] ALK PHOS 95 U/L Normal 35-104 [facility] Comment on above: Performed By: #### L 100.0100, L500.4050, L501.2450 ####[facility] [address] [place], [address] ALT [Catalytic activity/Vol] 20 U/L Normal <=34 [facility] Comment on above: Performed By: #### L 100.0100, L500.4050, L501.2450 ####[facility] [address] [place], [address] AST [Catalytic activity/Vol] 23 U/L Normal <=31 [facility] Comment on above: Performed By: #### L 100.0100, L500.4050, L501.2450 ####[facility] [address] [place], [address] Bilirubin [Mass/Vol] 0.39 mg/dL Normal 0.00-1.30 [facility] Comment on above: Performed By: #### L 100.0100, L500.4050, L501.2450 ####[facility] [address] [place], [address] BUN/CRE 15.0 RATIO Normal 10-20 [facility] Comment on above: Performed By: #### L 100.0100, L500.4050, L501.2450 ####[facility] [address] [place], [address] Calcium [Mass/Vol] 10.0 mg/dL Normal 7.6-11.0 [facility] Comment on above: Performed By: #### L 100.0100, L500.4050, L501.2450 ####[facility] [address] [place], [address] Chloride [Moles/Vol] 102 mmol/L Normal 98-108 [facility] Comment on above: Performed By: #### L 100.0100, L500.4050, L501.2450 ####[facility] [address] [place], [address] CO2 [Moles/Vol] 18.8 mmol/L Low 21.0-32.0 [facility] Comment on above: Performed By: #### L 100.0100, L500.4050, L501.2450 ####[facility] [address] [place], [address] Creatinine [Mass/Vol] 0.81 mg/dL Normal 0.70-1.[address] [facility] Comment on above: Performed By: #### L 100.0100, L500.4050, L501.2450 ####[facility] [address] [place], [address] ECRCL 118.29 ml/min Normal 50-250 [facility] Comment on above: Performed By: #### L 100.0100, L500.4050, L501.2450 ####[facility] [address] [place], [address] GAP 22 High 5-15 [facility] Comment on above: Performed By: #### L 100.0100, L500.4050, L501.2450 ####[facility] [address] [place], [address] GFR/1.73 sq M.predicted among non-blacks MDRD (S/P/Bld) [Vol rate/Area] 106 mL/min/{1.73_m2} Normal >60 [facility] Comment on above: Result Comment: mL/m in/1.73m2 CKD-EPI Creatinine Equation (2020) Performed By: #### L 100.0100, L500.4050, L501.2450 ####[facility] [address] [place], [address] Globulin (S) [Mass/Vol] 3.6 g/dL Normal 2.2-4.2 [facility] Comment on above: Performed By: #### L 100.0100, L500.4050, L501.2450 ####[facility] [address] [place], [address] Glucose [Mass/Vol] 87 mg/dL Normal 70-99 [facility] Comment on above: Performed By: #### L 100.0100, L500.4050, L501.2450 ####[facility] [address] [place], [address] Potassium [Moles/Vol] 3.9 mmol/L Normal 3.3-5.[address] [facility] Comment on above: Performed By: #### L 100.0100, L500.4050, L501.2450 ####[facility] [address] [place], [address] Sodium [Moles/Vol] 143 mmol/L Normal 133-145 [facility] Comment on above: Performed By: #### L 100.0100, L500.4050, L501.2450 ####[facility] [address] [place], [address] T PROT 8.5 g/dL High 5.9-8.4 [facility] Comment on above: Performed By: #### L 100.0100, L500.4050, L501.2450 ####[facility] [address] [place], [address] Urea nitrogen [Mass/Vol] 12 mg/dL Normal 4-19 [facility] Comment on above: Performed By: #### L 100.0100, L500.4050, L501.2450 ####[facility] [address] [place], [address] Emergency Department Summary on 07-18-2024 Emergency Department Summary Normal [facility] H AND P Exam - Hospitaliston 07-18-2024 H&P Exam - Hospitalist Normal [facility] Hepatobilliary Img w/Pharm I nton 07-18-2024 Hepatobilliary Img w/Pharm Int Normal [facility] Lipaseon 07-18-2024 Lipase [Catalytic activity/Vol] 29 U/L Normal 13-75 [facility] Comment on above: Result Comment: Plea se note:LIPASE revised reference range effective 22.New Lipase methodology. Expected to produce lower valuesthan the previous assay method.NEW Reference Range: 13 - 75 U/L Performed By: #### L 100.0100, L500.4050, L501.2450 ####[facility] [address] [place], [address] MRCP Abdomen without Contras ton 07-18-2024 MRCP Abdomen without Contrast Normal [facility] ,Serum,hCG Quali.on 07-18-2024 HCG, SERUM QUAL Negative Normal [facility] Comment on above: Performed By: #### L 700.6800 ####[facility] [address] [place], [address] Urine Drug Screen (VISTA)on 07-18-2024 AMPHETAMINES Negative Normal <1000 ng/mL [facility] Comment on above: Performed By: #### L 505.5000 ####[facility] [address] [place], [address] BARBITIURATES Negative Normal < 200 ng/mL [facility] Comment on above: Performed By: #### L 505.5000 ####[facility] [address] [facility] [address] BENZODIAZIPINE Negative Normal < 200 ng/mL [facility] Comment on above: Performed By: #### L 505.5000 ####[facility] [address] [place], [address] BUP Ur Drug Scr Negative Normal < 200 ng/mL [facility] Comment on above: Performed By: #### L 505.5000 ####[facility] [address] [place], [address] COCAINE Negative Normal < 300 ng/mL [facility] Comment on above: Performed By: #### L 505.5000 ####[facility] [address] [place], [address] Fentanyl Negative Normal [facility] Comment on above: Performed By: #### L 505.5000 ####[facility] [address] [facility] [address] METHADONE Negative Normal < 300 ng/mL [facility] Comment on above: Performed By: #### L 505.5000 ####[facility] [address] [facility] [address] OPIATES Negative Normal < 300 ng/mL [facility] Comment on above: Performed By: #### L 505.5000 ####[facility] [address] [place], [address] OXYCODONE Negative Normal < 100 ng/mL [facility] Comment on above: Performed By: #### L 505.5000 ####[facility] [address] [place], [address] PCP Negative Normal < 25 ng/mL [facility] Comment on above: Performed By: #### L 505.5000 ####[facility] [address] [place], [address] THC Negative Normal < 50 ng/mL [facility] Comment on above: Performed By: #### L 505.5000 ####[facility] [address] [place], [address] Basic Metabolic Profile (BMP )on 07-12-2024 BUN/CRE 9.1 RATIO Low 10-20 [facility] Comment on above: Performed By: #### L 100.0100, L500.2500, L500.3400, L501.2450 ####[facility] [address] [place], [address] Calcium [Mass/Vol] 9.8 mg/dL Normal 7.6-11.0 [facility] Comment on above: Performed By: #### L 100.0100, L500.2500, L500.3400, L501.2450 ####[facility] [address] [place], [address] Chloride [Moles/Vol] 101 mmol/L Normal 98-108 [facility] Comment on above: Performed By: #### L 100.0100, L500.2500, L500.3400, L501.2450 ####[facility] [address] [place], [address] CO2 [Moles/Vol] 18.5 mmol/L Low 21.0-32.0 [facility] Comment on above: Performed By: #### L 100.0100, L500.2500, L500.3400, L501.2450 ####[facility] [address] [place], [address] Creatinine [Mass/Vol] 0.80 mg/dL Normal 0.70-1.[address] [facility] Comment on above: Performed By: #### L 100.0100, L500.2500, L500.3400, L501.2450 ####[facility] [address] [place], [address] ECRCL 120.27 ml/min Normal 50-250 [facility] Comment on above: Performed By: #### L 100.0100, L500.2500, L500.3400, L501.2450 ####[facility] [address] [place], [address] GAP 19 High 5-15 [facility] Comment on above: Performed By: #### L 100.0100, L500.2500, L500.3400, L501.2450 ####[facility] [address] [place], [address] GFR/1.73 sq M.predicted among non-blacks MDRD (S/P/Bld) [Vol rate/Area] 107 mL/min/{1.73_m2} Normal >60 [facility] Comment on above: Result Comment: mL/m in/1.73m2 CKD-EPI Creatinine Equation (2020) Performed By: #### L 100.0100, L500.2500, L500.3400, L501.2450 ####[facility] [address] [place], [address] Glucose [Mass/Vol] 83 mg/dL Normal 70-99 [facility] Comment on above: Performed By: #### L 100.0100, L500.2500, L500.3400, L501.2450 ####[facility] [address] [place], [address] Potassium [Moles/Vol] 3.6 mmol/L Normal 3.3-5.[address] [facility] Comment on above: Performed By: #### L 100.0100, L500.2500, L500.3400, L501.2450 ####[facility] [address] [place], [address] Sodium [Moles/Vol] 139 mmol/L Normal 133-145 [facility] Comment on above: Performed By: #### L 100.0100, L500.2500, L500.3400, L501.2450 ####[facility] [address] [place], [address] Urea nitrogen [Mass/Vol] 7 mg/dL Normal 4-19 [facility] Comment on above: Performed By: #### L 100.0100, L500.2500, L500.3400, L501.2450 ####[facility] [address] [place], [address] CBC W/Diff, Automatedon 03-2 Absolute Lymph 1.59 X10 3/uL Normal 0.83-4.51 [facility] Comment on above: Performed By: #### L 100.0100, L500.2500, L500.3400, L501.2450 ####[facility] [address] [place], [address] Absolute Neut 6.1 X10 3/uL Normal 2.0-7.7 [facility] Comment on above: Performed By: #### L 100.0100, L500.2500, L500.3400, L501.2450 ####[facility] [address] [place], [address] Basophils/100 WBC (Bld) 0.6 % Normal 0-1 [facility] Comment on above: Performed By: #### L 100.0100, L500.2500, L500.3400, L501.2450 ####[facility] [address] [place], [address] Eosinophils/100 WBC (Bld) 0.2 % Normal 0-5 [facility] Comment on above: Performed By: #### L 100.0100, L500.2500, L500.3400, L501.2450 ####[facility] [address] [place], [address] Erythrocyte distribution width (RBC) [Ratio] 14.1 % Normal 11.6-14.6 [facility] Comment on above: Performed By: #### L 100.0100, L500.2500, L500.3400, L501.2450 ####[facility] [address] [place], [address] Hematocrit (Bld) [Volume fraction] 40.7 % Normal 37-47 [facility] Comment on above: Performed By: #### L 100.0100, L500.2500, L500.3400, L501.2450 ####[facility] [address] [place], [address] Hemoglobin (Bld) [Mass/Vol] 13.5 g/dL Normal 12.0-15.0 [facility] Comment on above: Performed By: #### L 100.0100, L500.2500, L500.3400, L501.2450 ####[facility] [address] [place], [address] IG% 0.200 Normal 0.0-0.9 [facility] Comment on above: Result Comment: IG% - Immature Granulocytes (promyelocytes, myelocytes andmetamyelocytes) > 1% indicates that a LEFT SHIFT is Present. Performed By: #### L 100.0100, L500.2500, L500.3400, L501.2450 ####[facility] [address] [place], [address] Lymphocytes/100 WBC (Bld) 18.9 % Low 19-41 [facility] Comment on above: Performed By: #### L 100.0100, L500.2500, L500.3400, L501.2450 ####[facility] [address] [place], [address] MCH (RBC) [Entitic mass] 27.4 pg Normal 27.0-32.0 [facility] Comment on above: Performed By: #### L 100.0100, L500.2500, L500.3400, L501.2450 ####[facility] [address] [place], [address] MCHC (RBC) [Mass/Vol] 33.2 g/dL Normal 32-[address] [facility] Comment on above: Performed By: #### L 100.0100, L500.2500, L500.3400, L501.2450 ####[facility] [address] [place], [address] MCV (RBC) [Entitic vol] 82.6 fL Normal 81-99 [facility] Comment on above: Performed By: #### L 100.0100, L500.2500, L500.3400, L501.2450 ####[facility] [address] [place], [address] Monocytes/100 WBC (Bld) 8.0 % Normal 0-10 [facility] Comment on above: Performed By: #### L 100.0100, L500.2500, L500.3400, L501.2450 ####[facility] [address] [place], [address] Neutrophils/100 WBC (Bld) 72.1 % High 47-70 [facility] Comment on above: Performed By: #### L 100.0100, L500.2500, L500.3400, L501.2450 ####[facility] [address] [place], [address] Nucleated RBC (Bld) [#/Vol] 0 10*3/uL Normal 0-5 [facility] Comment on above: Performed By: #### L 100.0100, L500.2500, L500.3400, L501.2450 ####[facility] [address] [place], [address] Platelet mean volume (Bld) [Entitic vol] 10.9 fL Normal 6.2-12.0 [facility] Comment on above: Performed By: #### L 100.0100, L500.2500, L500.3400, L501.2450 ####[facility] [address] [place], [address] Platelets (Bld) [#/Vol] 398 10*3/uL Normal 150-450 [facility] Comment on above: Performed By: #### L 100.0100, L500.2500, L500.3400, L501.2450 ####[facility] [address] [place], [address] RBC (Bld) [#/Vol] 4.93 10*6/uL Normal 4.2-5.4 [facility] Comment on above: Performed By: #### L 100.0100, L500.2500, L500.3400, L501.2450 ####[facility] [address] [place], [address] RDW SD 42.1 fl Normal 35.1-43.9 [facility] Comment on above: Performed By: #### L 100.0100, L500.2500, L500.3400, L501.2450 ####[facility] [address] [place], [address] WBC (Bld) [#/Vol] 8.4 10*3/uL Normal 4.4-11.0 [facility] Comment on above: Performed By: #### L 100.0100, L500.2500, L500.3400, L501.2450 ####[facility] [address] [place], [address] Emergency Department Summary on 07-12-2024 Emergency Department Summary Normal [facility] Lipaseon 07-12-2024 Lipase [Catalytic activity/Vol] 16 U/L Normal 13-75 [facility] Comment on above: Result Comment: Scarlett gonzalez note:LIPASE revised reference range effective 22.New Lipase methodology. Expected to produce lower valuesthan the previous assay method.NEW Reference Range: 13 - 75 U/L Performed By: #### L 100.0100, L500.2500, L500.3400, L501.2450 ####[facility] [address] [place], [address] Liver Profileon 07-12-2024 Albumin [Mass/Vol] 4.9 g/dL Normal 3.5-5.0 [facility] Comment on above: Performed By: #### L 100.0100, L500.2500, L500.3400, L501.2450 ####[facility] [address] [place], [address] ALK PHOS 98 U/L Normal 35-104 [facility] Comment on above: Performed By: #### L 100.0100, L500.2500, L500.3400, L501.2450 ####[facility] [address] [place], [address] ALT [Catalytic activity/Vol] 37 U/L High <=34 [facility] Comment on above: Performed By: #### L 100.0100, L500.2500, L500.3400, L501.2450 ####[facility] [address] [place], [address] AST [Catalytic activity/Vol] 35 U/L High <=31 [facility] Comment on above: Performed By: #### L 100.0100, L500.2500, L500.3400, L501.2450 ####[facility] [address] [place], [address] Bilirubin [Mass/Vol] 0.43 mg/dL Normal 0.00-1.30 [facility] Comment on above: Performed By: #### L 100.0100, L500.2500, L500.3400, L501.2450 ####[facility] [address] [place], [address] Bilirubin.direct [Mass/Vol] 0.24 mg/dL Normal 0.00-0.30 [facility] Comment on above: Performed By: #### L 100.0100, L500.2500, L500.3400, L501.2450 ####[facility] [address] [place], [address] Globulin (S) [Mass/Vol] 3.6 g/dL Normal 2.2-4.2 [facility] Comment on above: Performed By: #### L 100.0100, L500.2500, L500.3400, L501.2450 ####[facility] [address] [place], [address] T PROT 8.5 g/dL High 5.9-8.4 [facility] Comment on above: Performed By: #### L 100.0100, L500.2500, L500.3400, L501.2450 ####[facility] [address] [place], [address] ,Serum,hCG Quali.on 07-12-2024 HCG, SERUM QUAL Negative Normal [facility] Comment on above: Performed By: #### L 700.6800 ####[facility] [address] [place], [address] Urinalysis, Completeon 07-12 EPI,SQUAMOUS 0-5 SEEN Normal 5-10 [facility] Comment on above: Order Comment: CRITI NIKHIL VALUE CALLED TO 07/12/24 [facility] Nolvia Diaz.RESULTS READ BACK BY SAME.CLEAN CATCH Performed By: #### L 400.0001 ####[facility] [address] [place], [address] RBC 0 SEEN Normal 0-5 [facility] Comment on above: Order Comment: CRITI NIKHIL VALUE [facility] READ BACK BY SAME.CLEAN CATCH Performed By: #### L 400.0001 ####[facility] [address] [place], [address] BACTERIA 0 SEEN Normal None Seen [facility] Comment on above: Order Comment: CRITI NIKHIL VALUE CALLED TO 07/12/24 Bryan Diaz.RESULTS READ BACK BY SAME.CLEAN CATCH Performed By: #### L 400.0001 ####[facility] [address] [place], [address] Mucus Ql (Urine sed) 0 SEEN Normal [facility] Comment on above: Order Comment: CRITI NIKHIL VALUE CALLED TO 07/12/24 Bryan Diaz.RESULTS READ BACK BY SAME.CLEAN CATCH Performed By: #### L 400.0001 ####[facility] [address] [place], [address] WBC 0 SEEN Normal 0-5 [facility] Comment on above: Order Comment: CRITI NIKHIL VALUE CALLED TO 07/12/24 [facility] Nlovia Diaz.RESULTS READ BACK BY SAME.CLEAN CATCH Performed By: #### L 400.0001 ####[facility] [address] [place], [address] Gastroenterology Visit Repor ton 07-03-2024 Gastroenterology Visit Report Normal [facility] Thyroid Stim Hormone (TSH)on 07-02-2024 TSH 3.120 uIU/mL Normal 0.300-4.200 [facility] Comment on above: Order Comment: Order Date: 06/18/24Order Info: 3016-3 - TSH Performed By: #### L 501.9520 ####[facility] [address] [place], [address] Abdomen/Pelvis W IV Cont ONL Yon 06-30-2024 Abdomen/Pelvis W IV Cont ONLY Normal [facility] Basic Metabolic Profile (BMP )on 06-30-2024 BUN/CRE 9.4 RATIO Low 10-20 [facility] Comment on above: Performed By: #### L 501.2450, L500.2500, L500.3400, L100.0100 ####[facility] [address] [place], [address] Calcium [Mass/Vol] 9.5 mg/dL Normal 7.6-11.0 [facility] Comment on above: Performed By: #### L 501.2450, L500.2500, L500.3400, L100.0100 ####[facility] [address] [place], [address] Chloride [Moles/Vol] 102 mmol/L Normal 98-108 [facility] Comment on above: Performed By: #### L 501.2450, L500.2500, L500.3400, L100.0100 ####[facility] [address] [place], [address] CO2 [Moles/Vol] 21.9 mmol/L Normal 21.0-32.0 [facility] Comment on above: Performed By: #### L 501.2450, L500.2500, L500.3400, L100.0100 ####[facility] [address] [place], [address] Creatinine [Mass/Vol] 0.76 mg/dL Normal 0.70-1.[address] [facility] Comment on above: Performed By: #### L 501.2450, L500.2500, L500.3400, L100.0100 ####[facility] [address] [place], [address] ECRCL 129.52 ml/min Normal 50-250 [facility] Comment on above: Performed By: #### L 501.2450, L500.2500, L500.3400, L100.0100 ####[facility] [address] [place], [address] GAP 14 Normal 5-15 [facility] Comment on above: Performed By: #### L 501.2450, L500.2500, L500.3400, L100.0100 ####[facility] [address] [place], [address] GFR/1.73 sq M.predicted among non-blacks MDRD (S/P/Bld) [Vol rate/Area] 114 mL/min/{1.73_m2} Normal >60 [facility] Comment on above: Result Comment: mL/m in/1.73m2 CKD-EPI Creatinine Equation (2020) Performed By: #### L 501.2450, L500.2500, L500.3400, L100.0100 ####[facility] [address] [place], [address] Glucose [Mass/Vol] 89 mg/dL Normal 70-99 [facility] Comment on above: Performed By: #### L 501.2450, L500.2500, L500.3400, L100.0100 ####[facility] [address] [place], [address] Potassium [Moles/Vol] 4.6 mmol/L Normal 3.3-5.[address] [facility] Comment on above: Result Comment: Hemo lysis present, Results??could be affected.?? Performed By: #### L 501.2450, L500.2500, L500.3400, L100.0100 ####[facility] [address] [place], [address] Sodium [Moles/Vol] 138 mmol/L Normal 133-145 [facility] Comment on above: Performed By: #### L 501.2450, L500.2500, L500.3400, L100.0100 ####[facility] [address] [place], [address] Urea nitrogen [Mass/Vol] 7 mg/dL Normal 4-19 [facility] Comment on above: Performed By: #### L 501.2450, L500.2500, L500.3400, L100.0100 ####[facility] [address] [place], [address] CBC W/Diff, Automatedon 06-14 Absolute Lymph 1.55 X10 3/uL Normal 0.83-4.51 [facility] Comment on above: Performed By: #### L 501.2450, L500.2500, L500.3400, L100.0100 ####[facility] [address] [place], [address] Absolute Neut 4.2 X10 3/uL Normal 2.0-7.7 [facility] Comment on above: Performed By: #### L 501.2450, L500.2500, L500.3400, L100.0100 ####[facility] [address] [place], [address] Basophils/100 WBC (Bld) 0.7 % Normal 0-1 [facility] Comment on above: Performed By: #### L 501.2450, L500.2500, L500.3400, L100.0100 ####[facility] [address] [place], [address] Eosinophils/100 WBC (Bld) 0.5 % Normal 0-5 [facility] Comment on above: Performed By: #### L 501.2450, L500.2500, L500.3400, L100.0100 ####[facility] [address] [place], [address] Erythrocyte distribution width (RBC) [Ratio] 13.5 % Normal 11.6-14.6 [facility] Comment on above: Performed By: #### L 501.2450, L500.2500, L500.3400, L100.0100 ####[facility] [address] [place], [address] Hematocrit (Bld) [Volume fraction] 41.0 % Normal 37-47 [facility] Comment on above: Performed By: #### L 501.2450, L500.2500, L500.3400, L100.0100 ####[facility] [address] [place], [address] Hemoglobin (Bld) [Mass/Vol] 13.3 g/dL Normal 12.0-15.0 [facility] Comment on above: Performed By: #### L 501.2450, L500.2500, L500.3400, L100.0100 ####[facility] [address] [place], [address] IG% 0.200 Normal 0.0-0.9 [facility] Comment on above: Result Comment: IG% - Immature Granulocytes (promyelocytes, myelocytes andmetamyelocytes) > 1% indicates that a LEFT SHIFT is Present. Performed By: #### L 501.2450, L500.2500, L500.3400, L100.0100 ####[facility] [address] [place], [address] Lymphocytes/100 WBC (Bld) 25.2 % Normal 19-41 [facility] Comment on above: Performed By: #### L 501.2450, L500.2500, L500.3400, L100.0100 ####[facility] [address] [place], [address] MCH (RBC) [Entitic mass] 27.1 pg Normal 27.0-32.0 [facility] Comment on above: Performed By: #### L 501.2450, L500.2500, L500.3400, L100.0100 ####[facility] [address] [place], [address] MCHC (RBC) [Mass/Vol] 32.4 g/dL Normal 32-[address] [facility] Comment on above: Performed By: #### L 501.2450, L500.2500, L500.3400, L100.0100 ####[facility] [address] [place], [address] MCV (RBC) [Entitic vol] 83.5 fL Normal 81-99 [facility] Comment on above: Performed By: #### L 501.2450, L500.2500, L500.3400, L100.0100 ####[facility] [address] [place], [address] Monocytes/100 WBC (Bld) 5.9 % Normal 0-10 [facility] Comment on above: Performed By: #### L 501.2450, L500.2500, L500.3400, L100.0100 ####[facility] [address] [place], [address] Neutrophils/100 WBC (Bld) 67.5 % Normal 47-70 [facility] Comment on above: Performed By: #### L 501.2450, L500.2500, L500.3400, L100.0100 ####[facility] [address] [place], [address] Nucleated RBC (Bld) [#/Vol] 0 10*3/uL Normal 0-5 [facility] Comment on above: Performed By: #### L 501.2450, L500.2500, L500.3400, L100.0100 ####[facility] [address] [place], [address] Platelet mean volume (Bld) [Entitic vol] 10.1 fL Normal 6.2-12.0 [facility] Comment on above: Performed By: #### L 501.2450, L500.2500, L500.3400, L100.0100 ####[facility] [address] [place], [address] Platelets (Bld) [#/Vol] 316 10*3/uL Normal 150-450 [facility] Comment on above: Performed By: #### L 501.2450, L500.2500, L500.3400, L100.0100 ####[facility] [address] [place], [address] RBC (Bld) [#/Vol] 4.91 10*6/uL Normal 4.2-5.4 [facility] Comment on above: Performed By: #### L 501.2450, L500.2500, L500.3400, L100.0100 ####[facility] [address] [place], [address] RDW SD 40.9 fl Normal 35.1-43.9 [facility] Comment on above: Performed By: #### L 501.2450, L500.2500, L500.3400, L100.0100 ####[facility] [address] [place], [address] WBC (Bld) [#/Vol] 6.2 10*3/uL Normal 4.4-11.0 [facility] Comment on above: Performed By: #### L 501.2450, L500.2500, L500.3400, L100.0100 ####[facility] [address] [place], [address] Consultation - Surgicalon Consultation - Surgical Normal [facility] Emergency Department Summary on 06-30-2024 Emergency Department Summary Normal [facility] Gallbladderon 06-30-2024 Gallbladder Normal [facility] Lipaseon 06-30-2024 Lipase [Catalytic activity/Vol] 14 U/L Normal 13-75 [facility] Comment on above: Result Comment: Scarlett gonzalez note:LIPASE revised reference range effective 22.New Lipase methodology. Expected to produce lower valuesthan the previous assay method.NEW Reference Range: 13 - 75 U/L Performed By: #### L 501.2450, L500.2500, L500.3400, L100.0100 ####[facility] [address] [place], [address] Liver Profileon 06-30-2024 Albumin [Mass/Vol] 4.5 g/dL Normal 3.5-5.0 [facility] Comment on above: Performed By: #### L 501.2450, L500.2500, L500.3400, L100.0100 ####[facility] [address] [place], [address] ALK PHOS 99 U/L Normal 35-104 [facility] Comment on above: Performed By: #### L 501.2450, L500.2500, L500.3400, L100.0100 ####[facility] [address] [place], [address] ALT [Catalytic activity/Vol] 40 U/L High <=34 [facility] Comment on above: Performed By: #### L 501.2450, L500.2500, L500.3400, L100.0100 ####[facility] [address] [place], [address] AST [Catalytic activity/Vol] 48 U/L High <=31 [facility] Comment on above: Result Comment: Hemo lysis present, Results??could be affected.?? Performed By: #### L 501.2450, L500.2500, L500.3400, L100.0100 ####[facility] [address] [place], [address] Bilirubin [Mass/Vol] 0.23 mg/dL Normal 0.00-1.30 [facility] Comment on above: Performed By: #### L 501.2450, L500.2500, L500.3400, L100.0100 ####[facility] [address] [place], [address] D BILI < 0.08 Normal 0.00-0.30 [facility] Comment on above: Result Comment: Hemo lysis present, Results??could be affected.?? Performed By: #### L 501.2450, L500.2500, L500.3400, L100.0100 ####[facility] [address] [place], [address] Globulin (S) [Mass/Vol] 3.3 g/dL Normal 2.2-4.2 [facility] Comment on above: Performed By: #### L 501.2450, L500.2500, L500.3400, L100.0100 ####[facility] [address] [place], [address] T PROT 7.8 g/dL Normal 5.9-8.4 [facility] Comment on above: Performed By: #### L 501.2450, L500.2500, L500.3400, L100.0100 ####[facility] [address] [place], [address] CBC W/Diff, Automatedon 06-14 Absolute Lymph 1.50 X10 3/uL Normal 0.83-4.51 [facility] Comment on above: Performed By: #### L 100.0100, L500.3400, L501.2450 ####[facility] [address] [place], [address] Absolute Neut 4.9 X10 3/uL Normal 2.0-7.7 [facility] Comment on above: Performed By: #### L 100.0100, L500.3400, L501.2450 ####[facility] [address] [place], [address] Basophils/100 WBC (Bld) 0.7 % Normal 0-1 [facility] Comment on above: Performed By: #### L 100.0100, L500.3400, L501.2450 ####[facility] [address] [place], [address] Eosinophils/100 WBC (Bld) 1.0 % Normal 0-5 [facility] Comment on above: Performed By: #### L 100.0100, L500.3400, L501.2450 ####[facility] [address] [place], [address] Erythrocyte distribution width (RBC) [Ratio] 13.3 % Normal 11.6-14.6 [facility] Comment on above: Performed By: #### L 100.0100, L500.3400, L501.2450 ####[facility] [address] [place], [address] Hematocrit (Bld) [Volume fraction] 43.2 % Normal 37-47 [facility] Comment on above: Performed By: #### L 100.0100, L500.3400, L501.2450 ####[facility] [address] [place], [address] Hemoglobin (Bld) [Mass/Vol] 13.9 g/dL Normal 12.0-15.0 [facility] Comment on above: Performed By: #### L 100.0100, L500.3400, L501.2450 ####[facility] [address] [place], [address] IG% 0.300 Normal 0.0-0.9 [facility] Comment on above: Result Comment: IG% - Immature Granulocytes (promyelocytes, myelocytes andmetamyelocytes) > 1% indicates that a LEFT SHIFT is Present. Performed By: #### L 100.0100, L500.3400, L501.2450 ####[facility] [address] [place], [address] Lymphocytes/100 WBC (Bld) 21.3 % Normal 19-41 [facility] Comment on above: Performed By: #### L 100.0100, L500.3400, L501.2450 ####[facility] [address] [place], [address] MCH (RBC) [Entitic mass] 27.1 pg Normal 27.0-32.0 [facility] Comment on above: Performed By: #### L 100.0100, L500.3400, L501.2450 ####[facility] [address] [place], [address] MCHC (RBC) [Mass/Vol] 32.2 g/dL Normal 32-[address] [facility] Comment on above: Performed By: #### L 100.0100, L500.3400, L501.2450 ####[facility] [address] [place], [address] MCV (RBC) [Entitic vol] 84.2 fL Normal 81-99 [facility] Comment on above: Performed By: #### L 100.0100, L500.3400, L501.2450 ####[facility] [address] [place], [address] Monocytes/100 WBC (Bld) 7.0 % Normal 0-10 [facility] Comment on above: Performed By: #### L 100.0100, L500.3400, L501.2450 ####[facility] [address] [place], [address] Neutrophils/100 WBC (Bld) 69.7 % Normal 47-70 [facility] Comment on above: Performed By: #### L 100.0100, L500.3400, L501.2450 ####[facility] [address] [place], [address] Nucleated RBC (Bld) [#/Vol] 0 10*3/uL Normal 0-5 [facility] Comment on above: Performed By: #### L 100.0100, L500.3400, L501.2450 ####[facility] [address] [place], [address] Platelet mean volume (Bld) [Entitic vol] 10.5 fL Normal 6.2-12.0 [facility] Comment on above: Performed By: #### L 100.0100, L500.3400, L501.2450 ####[facility] [address] [place], [address] Platelets (Bld) [#/Vol] 386 10*3/uL Normal 150-450 [facility] Comment on above: Performed By: #### L 100.0100, L500.3400, L501.2450 ####[facility] [address] [place], [address] RBC (Bld) [#/Vol] 5.13 10*6/uL Normal 4.2-5.4 [facility] Comment on above: Performed By: #### L 100.0100, L500.3400, L501.2450 ####[facility] [address] [place], [address] RDW SD 41.3 fl Normal 35.1-43.9 [facility] Comment on above: Performed By: #### L 100.0100, L500.3400, L501.2450 ####[facility] [address] [place], [address] WBC (Bld) [#/Vol] 7.1 10*3/uL Normal 4.4-11.0 [facility] Comment on above: Performed By: #### L 100.0100, L500.3400, L501.2450 ####[facility] [address] [place], [address] Emergency Department Summary on 06-27-2024 Emergency Department Summary Normal [facility] Lipaseon 06-27-2024 Lipase [Catalytic activity/Vol] 14 U/L Normal 13-75 [facility] Comment on above: Result Comment: Scarlett gonzalez note:LIPASE revised reference range effective 22.New Lipase methodology. Expected to produce lower valuesthan the previous assay method.NEW Reference Range: 13 - 75 U/L Performed By: #### L 100.0100, L500.3400, L501.2450 ####[facility] [address] [place], [address] Liver Profileon 06-27-2024 Albumin [Mass/Vol] 4.5 g/dL Normal 3.5-5.0 [facility] Comment on above: Performed By: #### L 100.0100, L500.3400, L501.2450 ####[facility] [address] [place], [address] ALK PHOS 108 U/L High 35-104 [facility] Comment on above: Performed By: #### L 100.0100, L500.3400, L501.2450 ####[facility] [address] [place], [address] ALT [Catalytic activity/Vol] 24 U/L Normal <=34 [facility] Comment on above: Performed By: #### L 100.0100, L500.3400, L501.2450 ####[facility] [address] [place], [address] AST [Catalytic activity/Vol] 34 U/L High <=31 [facility] Comment on above: Performed By: #### L 100.0100, L500.3400, L501.2450 ####[facility] [address] [place], [address] Bilirubin [Mass/Vol] 0.25 mg/dL Normal 0.00-1.30 [facility] Comment on above: Performed By: #### L 100.0100, L500.3400, L501.2450 ####[facility] [address] [place], [address] Bilirubin.direct [Mass/Vol] 0.13 mg/dL Normal 0.00-0.30 [facility] Comment on above: Performed By: #### L 100.0100, L500.3400, L501.2450 ####[facility] [address] [place], [address] Globulin (S) [Mass/Vol] 3.2 g/dL Normal 2.2-4.2 [facility] Comment on above: Performed By: #### L 100.0100, L500.3400, L501.2450 ####[facility] [address] [place], [address] T PROT 7.6 g/dL Normal 5.9-8.4 [facility] Comment on above: Performed By: #### L 100.0100, L500.3400, L501.2450 ####[facility] [address] [place], [address] Gallbladderon 06-26-2024 Gallbladder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 L100.0100 ####[facility] [address] [place], [address] EST GFR - AA 120 mL/min Normal >60 [facility] Comment on above: Result Comment: Afri can [place] GFR Calc Performed By: #### L 501.5200, L500.2500, L100.0100 ####[facility] [address] [place], [address] GAP 6 Normal 5-15 [facility] Comment on above: Performed By: #### L 501.5200, L500.2500, L100.0100 ####[facility] [address] [place], [address] GFR/1.73 sq M.predicted among non-blacks MDRD (S/P/Bld) [Vol rate/Area] 100 mL/min/{1.73_m2} Normal >60 [facility] Comment on above: Result Comment: Non- GFR Calc Performed By: #### L 501.5200, L500.2500, L100.0100 ####[facility] [address] [place], [address] Glucose [Mass/Vol] 111 mg/dL High 74-106 [facility] Comment on above: Result Comment: Fast ing Glucose result from 100 to 125 mg/dLsuggests IMPAIRED HOMEOSTASIS per A.D.A. criteria. Performed By: #### L 501.5200, L500.2500, L100.0100 ####[facility] [address] [place], [address] Potassium [Moles/Vol] 3.6 mmol/L Normal 3.5-5.[address] [facility] Comment on above: Performed By: #### L 501.5200, L500.2500, L100.0100 ####[facility] [address] [place], [address] Sodium [Moles/Vol] 137 mmol/L Normal 136-145 [facility] Comment on above: Performed By: #### L 501.5200, L500.2500, L100.0100 ####[facility] [address] [place], [address] Urea nitrogen [Mass/Vol] 7 mg/dL Normal 7-18 [facility] Comment on above: Performed By: #### L 501.5200, L500.2500, L100.0100 ####[facility] [address] [place], [address] CBC W/Diff, Automatedon 10-3 0-2024 Absolute Lymph 1.27 X10 3/uL Normal 0.83-4.51 [facility] Comment on above: Performed By: #### L 501.5200, L500.2500, L100.0100 ####[facility] [address] [place], [address] Absolute Neut 8.8 X10 3/uL High 2.0-7.7 [facility] Comment on above: Performed By: #### L 501.5200, L500.2500, L100.0100 ####[facility] [address] [place], [address] Basophils/100 WBC (Bld) 0.5 % Normal 0-1 [facility] Comment on above: Performed By: #### L 501.5200, L500.2500, L100.0100 ####[facility] [address] [place], [address] Eosinophils/100 WBC (Bld) 0.5 % Normal 0-5 [facility] Comment on above: Performed By: #### L 501.5200, L500.2500, L100.0100 ####[facility] [address] [place], [address] Erythrocyte distribution width (RBC) [Ratio] 13.3 % Normal 11.6-14.6 [facility] Comment on above: Performed By: #### L 501.5200, L500.2500, L100.0100 ####[facility] [address] [place], [address] Hematocrit (Bld) [Volume fraction] 38.5 % Normal 37-47 [facility] Comment on above: Performed By: #### L 501.5200, L500.2500, L100.0100 ####[facility] [address] [place], [address] Hemoglobin (Bld) [Mass/Vol] 12.4 g/dL Normal 12.0-15.0 [facility] Comment on above: Performed By: #### L 501.5200, L500.2500, L100.0100 ####[facility] [address] [place], [address] IG% 0.400 Normal 0.0-0.9 [facility] Comment on above: Result Comment: IG% - Immature Granulocytes (promyelocytes, myelocytes andmetamyelocytes) > 1% indicates that a LEFT SHIFT is Present. Performed By: #### L 501.5200, L500.2500, L100.0100 ####[facility] [address] [place], [address] Lymphocytes/100 WBC (Bld) 11.5 % Low 19-41 [facility] Comment on above: Performed By: #### L 501.5200, L500.2500, L100.0100 ####[facility] [address] [place], [address] MCH (RBC) [Entitic mass] 27.0 pg Normal 27.0-32.0 [facility] Comment on above: Performed By: #### L 501.5200, L500.2500, L100.0100 ####[facility] [address] [place], [address] MCHC (RBC) [Mass/Vol] 32.2 g/dL Normal 32-[address] [facility] Comment on above: Performed By: #### L 501.5200, L500.2500, L100.0100 ####[facility] [address] [place], [address] MCV (RBC) [Entitic vol] 83.9 fL Normal 81-99 [facility] Comment on above: Performed By: #### L 501.5200, L500.2500, L100.0100 ####[facility] [address] [place], [address] Monocytes/100 WBC (Bld) 7.3 % Normal 0-10 [facility] Comment on above: Performed By: #### L 501.5200, L500.2500, L100.0100 ####[facility] [address] [place], [address] Neutrophils/100 WBC (Bld) 79.8 % High 47-70 [facility] Comment on above: Performed By: #### L 501.5200, L500.2500, L100.0100 ####[facility] [address] [place], [address] Nucleated RBC (Bld) [#/Vol] 0 10*3/uL Normal 0-5 [facility] Comment on above: Performed By: #### L 501.5200, L500.2500, L100.0100 ####[facility] [address] [place], [address] Platelet mean volume (Bld) [Entitic vol] 10.2 fL Normal 6.2-12.0 [facility] Comment on above: Performed By: #### L 501.5200, L500.2500, L100.0100 ####[facility] [address] [place], [address] Platelets (Bld) [#/Vol] 319 10*3/uL Normal 150-450 [facility] Comment on above: Performed By: #### L 501.5200, L500.2500, L100.0100 ####[facility] [address] [place], [address] RBC (Bld) [#/Vol] 4.59 10*6/uL Normal 4.2-5.4 [facility] Comment on above: Performed By: #### L 501.5200, L500.2500, L100.0100 ####[facility] [address] [place], [address] RDW SD 41.0 fl Normal 35.1-43.9 [facility] Comment on above: Performed By: #### L 501.5200, L500.2500, L100.0100 ####[facility] [address] [place], [address] WBC (Bld) [#/Vol] 11.1 10*3/uL High 4.4-11.0 [facility] Comment on above: Performed By: #### L 501.5200, L500.2500, L100.0100 ####[facility] [address] [place], [address] Chest PA and Lateralon 02-12 Chest PA and Lateral Normal [facility] Summary on 02-13-2024 Emergency Department Summary Normal [facility] Magnesiumon 02-13-2024 Magnesium [Mass/Vol] 1.8 mg/dL Normal 1.6-2.6 [facility] Comment on above: Performed By: #### L 501.5200, L500.2500, L100.0100 ####[facility] [address] [place], [address] CNOVon 02-12-2024 [facility] ACE LEONARDO ([id number]) 2 F Date Time Provider Department 02/12/24 10:45 AM DEANA TOMPKINS [facility] During your visit today, we [...] history is provided by the patient. No electrical accessories assembler was used. Sore Throat This is a [...] SURGICAL HISTORY Procedure Laterality Date EGD W/O [facility] SPEC VARICIES INJ 11/16/2023 ALLERGIES Patient has no known allergies. MEDICATIONS metoprolol succinate ER (TOPROL XL) 25 mg 24 hr tablet take 1 tablet by mouth every day (Patient taking differently: Take 50 mg by mouth once daily.) L-norgest/e.estradiol-e.est rad (JAIMIESS ORAL) mecobalamin, vitamin B12, (B12 ACTIVE) 1,000 mcg chew omeprazole (PRILOSEC) 40 mg capsule omeprazole (PRILOSEC) 20 mg capsule Takes 40mg before breakfast and 20mg before dinner cetirizine (ZYRTEC) 10 mg tablet Take 1 tablet by mouth once daily. atomoxetine (STRATTERA) 40 mg capsule Take 40 mg by mouth once daily. Fluticasone Furoate (FLONASE SENSIMIST) 27.5 mcg/actuation nasal spray Use 1 [place] in each nostril two times a day. [...] distension. Pal (more content not included)... Normal [facility] COVID AND INFLUENZA A/B AND RSV PCR, ROUTINEon 02-12-2024 SARS-CoV-2 (COVID-19) RNA JANINE+probe Ql (Unsp spec) SARS-COV-2 (AGENT OF COVID-19) RNA: Not detected INFLUENZA A RNA: Not detected INFLUENZA B RNA: Not detected RESPIRATORY SYNCYTIAL VIRUS (RSV) RNA: Not detected Normal [facility] Comment on above: Performed By: #### C VFSHOS ####[facility] LABCLIA [id number] [place] [address] [place] STREP A MOLECULAR (POC)on Procedural Control Valid [facility] Strep A (POCT) Negative Negative [facility] CNPNon 02-07-2024 CNPN Telephone (AGGENS3) ACE LEONARDO ([id number]) 2 F Date Time Provider Department 02/07/24 SIDNEY BOONE AGGENS3 During your visit today, we recorded the following information about you: Remigio Villar RN 02/07/2024 4:16 PM Signed Patient sent a [employer] message about the [employer] concessionist so I called her for more information. Ace said that the concessionist has disconnected about 5 times since last night, even though it is sitting on my lap. It does reconnect. Patient states the red light flashes and it beeps when it is disconnected but it will reconnect itself. Currently the concessionist is connected. Patient is using the lanyard or keeping the concessionist in her lap. Patient states she can feel the Smalls capsule in her throat. I asked the patient to try to ride it out until tomorrow afternoon, when the test should be completed, as I believe the concessionist is still working. I did tell her that if the concessionist starts beeping continuously then put it in another room or her car so it does not keep her awake overnight. Patient agreed with the plan. I gave the patient my contact information. Remigio Villar RN Allergies As of Date: 02/07/2024 (No Known Allergies) Date Reviewed: 02/06/2024 Reviewed by: Pam Feliz RN - Fully Assessed Reason for Visit: Patient Question [1367] Prescriptions as of 02/07/2024 - atomoxetine (STRATTERA) 40 mg capsule Take 40 mg by mouth once daily. - metoprolol succinate ER (TOPROL XL) 25 mg 24 hr tablet take 1 tablet by mouth every day - L-norgest/e.estradiol-e.est rad (JAIMIESS ORAL) - mecobalamin, vitamin B12, (B12 ACTIVE) 1,000 mcg chew - omeprazole (PRILOSEC) 40 mg capsule - omeprazole (PRILOSEC) 20 mg capsule Takes 40mg before breakfast and 20mg before dinner - Fluticasone Furoate (FLONASE SENSIMIST) 27.5 mcg/actuation nasal spray Use 1 [place] in each nostril two times a day. [...] Encounter Status:Closed by REMIGIO VILLAR on 02/07/24 [facility] ANES POSTPROC EVALon 024 ANES POSTPROC EVAL HNO ID: [id number] Author: NEELA DODGE MD Service: Anesthesiology Author [...] February 06, 2024 TIME: 2:04 PM CSN: [id number] Normal [facility] ANES PRE-OPon 02-06-2024 ANES PRE-OP HNO ID: [id number] Author: NEELA DODGE MD Service: Anesthesiology Author Type: Physician Type: Anesthesia Preprocedure Evaluation Filed: 02/06/2024 12:02 Note Text: ANESTHESIOLOGY DAY OF SURGERY NOTE : 2000 Procedure Information Date/Time: 02/06/24 133 Procedures: EGD WITH BIOPSY (Left: Abdomen) ESOPHAGEAL ACID REFLUX TEST W/MUCOSAL ATTACHED TELEMETRY PH ELECTRODE PLACEMENT RECORDING, ANALYSIS, AND INTERPRETATION [] (Esophagus) Location: [facility] / [facility] Surgeons: Sidney Boone MD Estimated body mass index is 41.34 kg/m? as calculated from the following: Height as of 01/30/24: 157.5 cm (5' 2). Weight as of 01/30/24: 102.5 kg (226 lb). Most recent hematocrit and potassium results: Hematocrit 41.6 01/09/2023 Potassium 4.6 01/09/2023 Reports PONV with last endoscopy Chart review shows administration of lidocaine, propofol and midazolam Explained this is likely unrelated to anesthesia given no agents assoc with PONV were given Plan to pretreat in preop with Zofran and Reglan Relevant Problems ANESTHESIA (+) MRITA (obstructive sleep apnea) GI (+) Gastroesophageal reflux [...] and consent discussed: yes. Patient / Responsible Libertarian agrees to proceed: yes Patient / Surrogate [...] Take 50 mg by mouth once daily.) L-norgest/e.estradiol-e.est rad (JAIMIESS ORAL) mecobalamin, vitamin B12, (B12 ACTIVE) 1,000 mcg chew omeprazole (PRILOSEC) 20 mg capsule Takes 40mg before breakfast and 20mg before dinner cetirizine (ZYRTEC) 10 mg tablet Take 1 tablet by mouth once daily. omeprazole (PRILOSEC) 40 mg capsule Fluticasone Furoate (FLONASE SENSIMIST) 27.5 mcg/actuation nasal spray Use 1 [place] in each nostril two times a day. [...] February 06, 2024 TIME: 11:47 AM CSN: [id number] Normal [facility] EGD Study observation Narrat kimberly 02-06-2024 [facility] Gastrointestinal Endoscopy Patient Name: Ace Leonardo Procedure Date: 02/06/2024 1:24 PM Date of : 2000 Admit Type: Outpatient Room: [place] [address] Gender: Female Note Status: Finalized Attending MD: Sidney Boone MD, [id number] Procedure: Upper GI endoscopy Indications: Suspected gastro-esophageal [...] antiplatelet agents. Procedure Code(s): --- Professional --- 76227, Esophagogastroduodenoscopy, flexible, transoral; with biopsy, single or multiple --- Technical --- 77794, Esophagogastroduodenoscopy, flexible, transoral; with biopsy, single or multiple 94197, TC, Esophagus, gastroesophageal reflux test; with mucosal attached telemetry pH electrode placement, recording, analysis and interpretation CPT copyright 2020 [employer]. All rights reserved. The codes documented in this report are (more content not included)... [facility] Radiology Study observation (narrative) [facility] HCG ( test) Ql (U)O rdered By: Mary Maier on 02-06-2024 Interpretation and review of laboratory results Normal [facility] HCG Preg Ur Qlon 02-06-2024 HCG ( test) Ql (U) Negative Normal Negative [facility] Comment on above: Order Comment: Speci men Type: URINE SPECIMEN Ordering Facility: [facility] Address: [address] [place] [address] Result Comment: This test is intended to aid in the early detection of . Very dilute urine samples, as indicated by a low specific gravity, may not contain hardware supplies sales representative levels of hCG. This test [...] . Performed By: #### 2 106-3 #### [facility] CLIA [id number] [address] [place] [address] [place] HCG, QUALITATIVE, URINE PREG NANCYOrdered By: Mary Maier on 02-06-2024 HCG ( test) Ql (U) Negative Negative [facility] Comment on above: This test is intende d to aid in the early detection of . Very dilute urine samples, as indicated by a low specific gravity, may not contain hardware supplies sales representative levels of hCG. This test [...] . HISTORY PHYSICALon HISTORY PHYSICAL HNO ID: [id number] Author: KARLY MAGAÑA APRN.GEAR DESIGN ENGINEER Service: Anesthesiology Author Type: Nurse Practitioner Type: [...] SURGICAL HISTORY Procedure Laterality Date EGD W/O [facility] SPEC VARICIES INJ 11/16/2023 FAMILY HISTORY Problem [...] mouth once daily. 02/05/2024 at 1400 Yes L-norgest/e.estradiol-e.est rad (JAIMIESS ORAL) 02/05/2024 at 1400 Yes mecobalamin, [...] SENSIMIST) 27.5 mcg/actuation nasal spray Use 1 [place] in each nostril two times a day. [...] No r (more content not included)... Normal [facility] NURSING PROGon 02-06-2024 NURSING PROG HNO ID: [id number] Author: BRANDIE HAMM RN Service: Nursing Author [...] This patient tolerated this procedure well. Normal [facility] SURGICAL PATHOLOGYon 024 CASE REPORT Normal [facility] Comment on above: Order Comment: Specaxel jones Type: TISSUE SPECIMEN Ordering Facility: [facility] Address: [address] [place] [address] Result Comment: Surg ical Pathology Report Case: [id number] Authorizing Provider: Sidney Boone, Collected: 02/06/2024 01:42 PM Ordering Location: [facility] Received: 02/07/2024 10:53 AM Pathologist: Sarah Child MD Specimens: A) - Stomach, Antrum, Biopsy B) - Esophagogastric Junction, Biopsy Performed By: #### S #### [facility] CLIA [id number] [address] CLINICAL HISTORY Normal [facility] Comment on above: Order Comment: Jonnathan jones Type: TISSUE SPECIMEN Ordering Facility: [facility] Address: [address] [place] [address] Result Comment: Pre- op diagnosis: Gastroesophageal reflux disease, unspecified whether esophagitis present [K21.9] Performed By: #### S #### [facility] CLIA [id number] [address] FINAL DIAGNOSIS Normal [facility] Comment on above: Order Comment: Jonnathan jones Type: TISSUE SPECIMEN Ordering Facility: [facility] Address: [address] [place] [address] Result Comment: Alice long antrum, biopsy: -- Antral-type gastric mucosa with no significant histopathologic abnormalities. -- No morphologic evidence of H. pylori organisms identified on H&E sections. B. Esophagogastric junction, biopsy: -- Squamous mucosa with no significant histopathologic abnormalities. -- No glandular type mucosa present for evaluation. Performed By: #### S #### [facility] CLIA [id number] [address] [place] [address] FINAL PERFORMING LAB Normal [facility] Comment on above: Order Comment: Speci men Type: TISSUE SPECIMEN Ordering Facility: [facility] Address: [address] [place] [address] Result Comment: Diag nostic interpretation performed at [facility], [address] [place] [address] CLIA# [id number] Vp Clinical Research: Tony Donahue M.D. Performed By: #### S #### [facility] CLIA [id number] [address] [place] [address] GROSS DESCRIPTION Normal [facility] Comment on above: Order Comment: Speci men Type: TISSUE SPECIMEN Ordering Facility: [facility] Address: [address] [place] [address] Result Comment: A. S tomach, Antrum, Biopsy [...] entirely in B1. Gross examination performed at [facility], [address] [place] [address] CLIA#[id number] OLS February 07, 2024 12:14 PM Performed By: #### S #### [facility] CLIA [id number] [address] [place] [address] Upper GI endoscopy 10-23-2 024 Upper GI endoscopy Addendum Number: 1 A ddendum Date: 02/18/2024 10:29:20 AM Reason for Exam is GERD MD Sidney Byrd MD 02/18/2024 10:30:09 AM This report has been signed electronically by Sidney Boone MD [facility] Gastrointestinal Endoscopy Patient Name: Ace Leonardo Procedure Date: 02/06/2024 1:24 PM Date of : 2000 Admit Type: Outpatient Room: [place] [address] Gender: Female Note Status: Addendum Attending MD: Sidney Boone MD, [id number] Procedure: Upper GI endoscopy Indications: Suspected gastro-esophageal [...] antiplatelet agents. Procedure Code(s): --- Professional --- 32557, Esophagogastroduodenoscopy, flexible, transoral; with biopsy, single or multiple --- Technical --- 77697, Esophagogastroduodenoscopy, flexible, transoral; with biopsy, single or multiple 80061, TC, Esophagus, gastroesophageal reflux test; with mucosal attached telemetry pH electrode placement, recording, analysis and interpretation CPT copyright 2020 [employer]. All rights reserved. The codes documented in this report are preliminary and upon gas roller operator review may be revised to meet current compliance requirements. Attending Participation: I personally performed the entire procedure. Scope In: 1:38:44 PM Scope Out: 1:49:11 PM MD Sidney Byrd MD 02/06/2024 2:02:20 PM This report has been signed electronically by Sidney Boone MD Number of Addenda: 1 Note Initiated On: 02/06/2024 1:24 PM Normal [facility] CNOVon 01-30-2024 CNOV Office Visit ([facility] 3) ACE LEONARDO ([id number]) 2 F Date Time Provider Department 01/30/24 [...] SURGICAL HISTORY Procedure Laterality Date EGD W/O [facility] SPEC VARICIES INJ 11/16/2023 Social History Tobacco [...] Take 50 mg by mouth once daily.) L-norgest/e.estradiol-e.est rad (JAIMIESS ORAL) mecobalamin, vitamin B12, (B12 ACTIVE) 1,000 mcg chew omeprazole (PRILOSEC) 20 mg capsule Takes 40mg before breakfast and 20mg before dinner Fluticasone Furoate (FLONASE SENSIMIST) 27.5 mcg/actuation nasal spray Use 1 [place] in each nostril two times a day. [...] (bmi) of 40.0 to 44.9 in adult ([facility]) Plan: ASSESSMENT/PLAN: 1. Gastroesophageal reflux disease, unspecified [...] (BMI) of 40.0 to 44.9 in adult ([facility]) - ICD9: 278.01, V85.41, ICD10: E66.813, E66.01, Z68.41 Stable Medical Decision Making: Problems: Moderate: New problem with uncertain prognosis Data: Unique test(s) ordered: 3+ Risk: Low: Low risk fr (more content not included)... Normal [facility] CNOVon 12-31-2023 CNOV Office Visit ([facility] ) ACE LEONARDO ([id number]) 2 F Date Time Provider Department 12/31/23 2:30 PM ARIEL GUO [facility] During your visit today, we recorded the [...] Known Allergies) Date Reviewed: 12/31/2023 Reviewed by: Vera Nicholson RN - Fully Assessed Reason for Visit: Follow Up [171] Cmt: EGD Primary Visit Diagnosis:Gastroesophageal reflux disease, unspecified whether esophagitis present [K21.9] Order(s):MANOMETRY ESOPHAGEAL [52750YKM] Order #: [id number] FUTURE PH INSERT OFF MEDS [[id number]] Order #: [id number] FUTURE Prescriptions as of 01/03/2024 - metoprolol succinate ER (TOPROL XL) 25 mg 24 hr tablet take 1 tablet by mouth every day - L-norgest/e.estradiol-e.est rad (JAIMIESS ORAL) - mecobalamin, vitamin B12, (B12 ACTIVE) 1,000 mcg chew - omeprazole (PRILOSEC) 40 mg capsule - omeprazole (PRILOSEC) 20 mg capsule Takes 40mg before breakfast and 20mg before dinner - Fluticasone Furoate (FLONASE SENSIMIST) 27.5 mcg/actuation nasal spray Use 1 [place] in each nostril two times a day. [...] for Encounter Date Provider Department Center 12/31/2023 [id number] GUO [facility] Encounter Status:Closed by ARIEL GUO on 01/03/24 [facility] 12-31-2023 [facility] Telephone ([facility]) ACE LEONARDO ([id number]) 2 F Date Time Provider Department 12/31/23 [...] Patient then to follow back up with [facility]'s office after appointments are done Keren Martinez Ct Technologist Keren Martinez 01/07/2024 8:00 AM Signed Remigio Villar Breanna Hi Bre, I have Ace scheduled for an appt w/Dr. Boone on 01/30/24 AND her testing on 02/06/24. She will follow up with you. Cara Allergies As of Date: 12/31/2023 (No Known Allergies) Date Reviewed: 12/31/2023 Reviewed by: Vera Nicholson RN - Fully Assessed Reason for Visit: Patient Update [1234] Prescriptions as of 01/07/2024 - metoprolol succinate ER (TOPROL XL) 25 mg 24 hr tablet take 1 tablet by mouth every day - L-norgest/e.estradiol-e.est rad (JAIMIESS ORAL) - mecobalamin, vitamin B12, (B12 ACTIVE) 1,000 mcg chew - omeprazole (PRILOSEC) 40 mg capsule - omeprazole (PRILOSEC) 20 mg capsule Takes 40mg before breakfast and 20mg before dinner - Fluticasone Furoate (FLONASE SENSIMIST) 27.5 mcg/actuation nasal spray Use 1 [place] in each nostril two times a day. [...] Status:Closed by KEREN MARTINEZ on 12/31/23 Normal [facility] Cardiology Visit Reporton Cardiology Visit Report Normal [facility] 11-19-2023 [facility] Telephone ([employer]) JORDENACE ([id number]) 2 F Date Time Provider Department 11/19/23 ARIEL GUO During your visit today, we recorded the following information about you: Ivis Richter LPN 11/19/2023 10:38 AM Signed Patient calling and reports she has had constant aching pain in her lower abdomen since EGD. Occasionally sharp depending on activity and had signifcant nausea over the weekend. She was evaluated at [facility] ER and given medication for nausea and discharged to home. She is wondering if there is anything she should be doing for pain? Denies emesis or cough/hemoptysis. Reports the pain interferes with sleep. She would like a work excuse for today if possible. Patient can be reached at [phone] RAUL Parker Billie, RN 11/19/2023 5:02 PM Signed Contacted Ace with the Recommendations below. She stated the pain was the same as it was in the ED. I recommended if the pain gets worse, or doesn't go away to be reevaluated in the ED. She voiced understanding and had no further questions.Vera Nicholson RN Allergies As of Date: 11/19/2023 (No Known Allergies) Date Reviewed: 11/16/2023 Reviewed by: Anastasiia Zapata, HERI - Fully Assessed Reason for Visit: Patient Update [1234] Prescriptions as of 11/30/2023 - L-norgest/e.estradiol-e.est rad (JAIMIESS ORAL) - mecobalamin, vitamin B12, (B12 ACTIVE) 1,000 mcg chew - omeprazole (PRILOSEC) 40 mg capsule - omeprazole (PRILOSEC) 20 mg capsule Takes 40mg before breakfast and 20mg before dinner - Fluticasone Furoate (FLONASE SENSIMIST) 27.5 mcg/actuation nasal spray Use 1 [place] in each nostril two times a day. [...] Status:Closed by IVIS RICHTER on 11/30/23 Normal [facility] 12 Lead EKGon 11-18-2023 12 Lead EKG Normal [facility] Abdomen/Pelvis W IV Cont ONL Yon 11-18-2023 Abdomen/Pelvis W IV Cont ONLY Normal [facility] Basic Metabolic Profile (BMP )on 11-18-2023 BUN/CRE 8.8 RATIO Low 10-20 [facility] Comment on above: Order Comment: 'TROP ' Serial specimen #1, #2 or #3: 1 Performed By: #### L 501.4020, L100.0100, L501.2450, L500.2500 ####[facility] [address] [place], [address] CA,Total 8.9 mg/dL Normal 8.5-10.1 [facility] Comment on above: Order Comment: 'TROP ' Serial specimen #1, #2 or #3: 1 Performed By: #### L 501.4020, L100.0100, L501.2450, L500.2500 ####[facility] [address] [place], [address] Chloride [Moles/Vol] 106 mmol/L Normal 98-107 [facility] Comment on above: Order Comment: 'TROP ' Serial specimen #1, #2 or #3: 1 Performed By: #### L 501.4020, L100.0100, L501.2450, L500.2500 ####[facility] [address] [place], [address] CO2 [Moles/Vol] 25.0 mmol/L Normal 21.0-32.0 [facility] Comment on above: Order Comment: 'TROP ' Serial specimen #1, #2 or #3: 1 Performed By: #### L 501.4020, L100.0100, L501.2450, L500.2500 ####[facility] [address] [place], [address] Creatinine [Mass/Vol] 0.80 mg/dL Normal 0.55-1.[address] [facility] Comment on above: Order Comment: 'TROP ' Serial specimen #1, #2 or #3: 1 Result Comment: The validity of the calculated GFR GFRAA in patients over70 years has not been determined. Clinical correlation isessential. Performed By: #### L 501.4020, L100.0100, L501.2450, L500.2500 ####[facility] [address] [place], [address] ECRCL 121.54 ml/min Normal [facility] Comment on above: Order Comment: 'TROP ' Serial specimen #1, #2 or #3: 1 Performed By: #### L 501.4020, L100.0100, L501.2450, L500.2500 ####[facility] [address] [place], [address] EST GFR - AA 116 mL/min Normal >60 [facility] Comment on above: Order Comment: 'TROP ' Serial specimen #1, #2 or #3: 1 Result Comment: Afri can Ecuadorean GFR Calc Performed By: #### L 501.4020, L100.0100, L501.2450, L500.2500 ####[facility] [address] [place], [address] GAP 7 Normal 5-15 [facility] Comment on above: Order Comment: 'TROP ' Serial specimen #1, #2 or #3: 1 Performed By: #### L 501.4020, L100.0100, L501.2450, L500.2500 ####[facility] [address] [place], [address] GFR/1.73 sq M.predicted among non-blacks MDRD (S/P/Bld) [Vol rate/Area] 96 mL/min/{1.73_m2} Normal >60 [facility] Comment on above: Order Comment: 'TROP ' Serial specimen #1, #2 or #3: 1 Result Comment: Non- GFR Calc Performed By: #### L 501.4020, L100.0100, L501.2450, L500.2500 ####[facility] [address] [place], [address] Glucose [Mass/Vol] 89 mg/dL Normal 74-106 [facility] Comment on above: Order Comment: 'TROP ' Serial specimen #1, #2 or #3: 1 Performed By: #### L 501.4020, L100.0100, L501.2450, L500.2500 ####[facility] [address] [place], [address] Potassium [Moles/Vol] 3.7 mmol/L Normal 3.5-5.[address] [facility] Comment on above: Order Comment: 'TROP ' Serial specimen #1, #2 or #3: 1 Performed By: #### L 501.4020, L100.0100, L501.2450, L500.2500 ####[facility] [address] [place], [address] Sodium [Moles/Vol] 138 mmol/L Normal 136-145 [facility] Comment on above: Order Comment: 'TROP ' Serial specimen #1, #2 or #3: 1 Performed By: #### L 501.4020, L100.0100, L501.2450, L500.2500 ####[facility] [address] [place], [address] Urea nitrogen [Mass/Vol] 7 mg/dL Normal 7-18 [facility] Comment on above: Order Comment: 'TROP ' Serial specimen #1, #2 or #3: 1 Performed By: #### L 501.4020, L100.0100, L501.2450, L500.2500 ####[facility] [address] [place], [address] CBC W/Diff, Automatedon 08-0 4-2023 Absolute Lymph 1.38 X10 3/uL Normal 0.83-4.51 [facility] Comment on above: Performed By: #### L 501.4020, L100.0100, L501.2450, L500.2500 ####[facility] [address] [place], [address] Absolute Neut 3.6 X10 3/uL Normal 2.0-7.7 [facility] Comment on above: Performed By: #### L 501.4020, L100.0100, L501.2450, L500.2500 ####[facility] [address] [place], [address] Basophils/100 WBC (Bld) 0.7 % Normal 0-1 [facility] Comment on above: Performed By: #### L 501.4020, L100.0100, L501.2450, L500.2500 ####[facility] [address] [place], [address] Eosinophils/100 WBC (Bld) 0.7 % Normal 0-5 [facility] Comment on above: Performed By: #### L 501.4020, L100.0100, L501.2450, L500.2500 ####[facility] [address] [place], [address] Erythrocyte distribution width (RBC) [Ratio] 13.2 % Normal 11.6-14.6 [facility] Comment on above: Performed By: #### L 501.4020, L100.0100, L501.2450, L500.2500 ####[facility] [address] [place], [address] Hematocrit (Bld) [Volume fraction] 41.3 % Normal 37-47 [facility] Comment on above: Performed By: #### L 501.4020, L100.0100, L501.2450, L500.2500 ####[facility] [address] [place], [address] Hemoglobin (Bld) [Mass/Vol] 12.8 g/dL Normal 12.0-15.0 [facility] Comment on above: Performed By: #### L 501.4020, L100.0100, L501.2450, L500.2500 ####[facility] [address] [place], [address] IG% 0.200 Normal 0.0-0.9 [facility] Comment on above: Result Comment: IG% - Immature Granulocytes (promyelocytes, myelocytes andmetamyelocytes) > 1% indicates that a LEFT SHIFT is Present. Performed By: #### L 501.4020, L100.0100, L501.2450, L500.2500 ####[facility] [address] [place], [address] Lymphocytes/100 WBC (Bld) 25.1 % Normal 19-41 [facility] Comment on above: Performed By: #### L 501.4020, L100.0100, L501.2450, L500.2500 ####[facility] [address] [place], [address] MCH (RBC) [Entitic mass] 26.5 pg Low 27.0-32.0 [facility] Comment on above: Performed By: #### L 501.4020, L100.0100, L501.2450, L500.2500 ####[facility] [address] [place], [address] MCHC (RBC) [Mass/Vol] 31.0 g/dL Low 32-[address] [facility] Comment on above: Performed By: #### L 501.4020, L100.0100, L501.2450, L500.2500 ####[facility] [address] [place], [address] MCV (RBC) [Entitic vol] 85.5 fL Normal 81-99 [facility] Comment on above: Performed By: #### L 501.4020, L100.0100, L501.2450, L500.2500 ####[facility] [address] [place], [address] Monocytes/100 WBC (Bld) 7.1 % Normal 0-10 [facility] Comment on above: Performed By: #### L 501.4020, L100.0100, L501.2450, L500.2500 ####[facility] [address] [place], [address] Neutrophils/100 WBC (Bld) 66.2 % Normal 47-70 [facility] Comment on above: Performed By: #### L 501.4020, L100.0100, L501.2450, L500.2500 ####[facility] [address] [place], [address] Nucleated RBC (Bld) [#/Vol] 0 10*3/uL Normal 0-5 [facility] Comment on above: Performed By: #### L 501.4020, L100.0100, L501.2450, L500.2500 ####[facility] [address] [place], [address] Platelet mean volume (Bld) [Entitic vol] 10.3 fL Normal 6.2-12.0 [facility] Comment on above: Performed By: #### L 501.4020, L100.0100, L501.2450, L500.2500 ####[facility] [address] [place], [address] Platelets (Bld) [#/Vol] 353 10*3/uL Normal 150-450 [facility] Comment on above: Performed By: #### L 501.4020, L100.0100, L501.2450, L500.2500 ####[facility] [address] [place], [address] RBC (Bld) [#/Vol] 4.83 10*6/uL Normal 4.2-5.4 [facility] Comment on above: Performed By: #### L 501.4020, L100.0100, L501.2450, L500.2500 ####[facility] [address] [place], [address] RDW SD 41.3 fl Normal 35.1-43.9 [facility] Comment on above: Performed By: #### L 501.4020, L100.0100, L501.2450, L500.2500 ####[facility] [address] [place], [address] WBC (Bld) [#/Vol] 5.5 10*3/uL Normal 4.4-11.0 [facility] Comment on above: Performed By: #### L 501.4020, L100.0100, L501.2450, L500.2500 ####[facility] [address] [place], [address] CNOVon 11-18-2023 CNOV Office Visit (UCWSTR ) ACE LEONARDO ([id number]) 2 F Date Time Provider Department 11/18/23 10:15 AM JEROME ALLEN UCWSTR During your visit today, we recorded the following information about you: Jerome Allen APRN.GEAR DESIGN ENGINEER 11/18/2023 10:18 AM Signed Nontoxic-appearing female presents urgent care chief complaint esophageal and abdominal pain. Duration of symptoms yesterday. Associated symptoms listed above. Patient states on November 15 she had a EGD. States pain was so severe last night it kept her up. Patient rates pain 7-8 out of 10. EGD was performed in the mid [facility] ED. Recommended patient return to [facility] emergency room. Patient states she will be seen at [facility]. Verbalized understanding agrees with plan of care. Jerome Allen APRN.GEAR DESIGN ENGINEER Allergies As of Date: 11/18/2023 (No Known Allergies) Date Reviewed: 11/16/2023 Reviewed by: Anastasiia Zapata, RN - Fully Assessed Primary Visit Diagnosis:Procedure not carried out [Z53.9] Prescriptions as of 11/18/2023 - L-norgest/e.estradiol-e.est rad (JAIMIESS ORAL) - mecobalamin, vitamin B12, (B12 ACTIVE) 1,000 mcg chew - omeprazole (PRILOSEC) 40 mg capsule - omeprazole (PRILOSEC) 20 mg capsule Takes 40mg before breakfast and 20mg before dinner - Fluticasone Furoate (FLONASE SENSIMIST) 27.5 mcg/actuation nasal spray Use 1 [place] in each nostril two times a day. [...] Encounter Status:Closed by JEROME ALLEN on 11/18/23 Normal [facility] Chest 1 View (Portable)on Chest 1 View (Portable) Normal [facility] Emergency Department Summary on 11-18-2023 Emergency Department Summary Normal [facility] L501.4020on 11-18-2023 TROPONIN-I HS < 3 Low 3.0-54.0 [facility] Comment on above: Order Comment: 'TROP ' Serial specimen #1, #2 or #3: 1 Result Comment: Plea se Note: New Test Units and Gender Specific Reference Ranges. For more information see Policy Stat Procedure [place] High Sensitivity Troponin (TNIH) and attachments. Performed By: #### L 501.4020, L100.0100, L501.2450, L500.2500 ####[facility] [address] [place], [place], [address] Lipaseon 11-18-2023 Lipase [Catalytic activity/Vol] 15 U/L Normal 13-75 [facility] Comment on above: Order Comment: 'TROP ' Serial specimen #1, #2 or #3: 1 Result Comment: Plea se note:LIPASE revised reference range effective 22.New Lipase methodology. Expected to produce lower valuesthan the previous assay method.NEW Reference Range: 13 - 75 U/L Performed By: #### L 501.4020, L100.0100, L501.2450, L500.2500 ####[facility] [address] [place], [place], [address] ,Urineon 11-18-2023 Beta HCG ( test) Ql (U) Negative Normal [facility] Comment on above: Result Comment: Very dilute urine specimens, as indicated by a low specificgravity, may not contain hardware supplies sales representative levels of hCG.If is still suspected, a first morning urinespecimen should be collected 48 hours later and tested. Performed By: #### L 400.7600 ####[facility] [address] [place], [address] Urinalysis, Routine (Dipstic k)on 11-18-2023 BILIRUBIN URINE Negative Normal Negative [facility] Comment on above: Order Comment: COLLE CTOR TO SPECIFY Performed By: #### L 400.2010 ####[facility] [address] [place], [address] Clarity (U) Clear Normal Clear [facility] Comment on above: Order Comment: COLLE CTOR TO SPECIFY Performed By: #### L 400.2010 ####[facility] [address] [place], [address] Color (U) Yellow Normal Yellow [facility] Comment on above: Order Comment: BRITANY CTOR TO SPECIFY Performed By: #### L 400.2010 ####[facility] [address] [place], [address] GLUCOSE, UR Normal Normal Normal [facility] Comment on above: Order Comment: BRITANY CTOR TO SPECIFY Performed By: #### L 400.2010 ####[facility] [address] [place], [address] KETONE UR Negative Normal Negative [facility] Comment on above: Order Comment: COLLE CTOR TO SPECIFY Performed By: #### L 400.2010 ####[facility] [address] [place], [address] LEUK ESTERASE 25 /ul Abnormal Negative [facility] Comment on above: Order Comment: BRITANY CTOR TO SPECIFY Performed By: #### L 400.2010 ####[facility] [address] [place], [address] Nitrite Ql (U) Negative Normal Negative [facility] Comment on above: Order Comment: BRITANY CTOR TO SPECIFY Performed By: #### L 400.2010 ####[facility] [address] [place], [address] OCCULT BLOOD-UR Negative Normal Negative [facility] Comment on above: Order Comment: BRITANY CTOR TO SPECIFY Performed By: #### L 400.2010 ####[facility] [address] [place], [address] pH UR 8.0 Normal 5.0 - 8.0 [facility] Comment on above: Order Comment: BRITANY CTOR TO SPECIFY Performed By: #### L 400.2010 ####[facility] [address] [place], [address] PROT DIPSTX Negative Normal Negative [facility] Comment on above: Order Comment: BRITANY CTOR TO SPECIFY Performed By: #### L 400.2010 ####[facility] [address] [place], [address] SP.GR. DIPSTX 1.015 Normal 1.002-1.030 [facility] Comment on above: Order Comment: BRITANY CTOR TO SPECIFY Performed By: #### L 400.2010 ####[facility] [address] [place], [address] UROBILI Normal Normal Normal [facility] Comment on above: Order Comment: BRITANY CTOR TO SPECIFY Performed By: #### L 400.2010 ####[facility] [address] [place], [address] ANES POSTPROC EVALon 024 ANES POSTPROC EVAL HNO ID: [id number] Author: JIMBO JENNINGS MD Service: Anesthesiology Author Type: Anesthesiologist Type: Anesthesia Postprocedure Evaluation Filed: 11/16/2023 12:37 Note Text: POST ANESTHESIA EVALUATION NOTE : 2000 Procedure Summary Date: 11/16/23 Room / Location: [facility] Anesthesia Start: 1202 Anesthesia Stop: 1217 Procedure: EGD DIAGNOSTIC Diagnosis: Gastroesophageal reflux disease, unspecified whether esophagitis present (Heartburn) Scheduled Providers: Ariel Guo MD; Tony Zhou APRN.FUR PULLER; Jimbo Jennings MD Responsible Provider: Jimbo Jennings [...] November 16, 2023 TIME: 12:37 PM CSN: [id number] Normal [facility] ANES PRE-OPon 11-16-2023 ANES PRE-OP HNO ID: [id number] Author: JIMBO JENNINGS MD Service: Anesthesiology Author Type: Anesthesiologist Type: Anesthesia Preprocedure Evaluation Filed: 11/16/2023 11:32 Note Text: ANESTHESIOLOGY DAY OF SURGERY NOTE : 2000 Procedure Information Date/Time: 11/16/23 1415 Scheduled providers: Ariel Guo MD; Tony Zhou APRN.FUR PULLER; Jimbo Jennings MD Procedure: EGD DIAGNOSTIC Location: [facility] Estimated body mass index is 35.7 kg/m? as calculated from the following: Height as of 12/07/22: 167.2 cm (5' 5.83). Weight as of 09/21/23: 99.8 kg (220 [...] adequate. Short neck: no. Thick neck: no Microretrognathia/Micronagt hia/Recessed Chin: No DENTAL Dental findings: teeth intact. [...] and consent discussed: yes. Patient / Responsible Libertarian agrees to proceed: yes Patient / Surrogate [...] Outpatient Medications as of 11/16/2023 Medication Sig L-norgest/e.estradiol-e.est rad (JAIMIESS ORAL) mecobalamin, vitamin B12, (B12 ACTIVE) 1,000 mcg chew omeprazole (PRILOSEC) 40 mg capsule omeprazole (PRILOSEC) 20 mg capsule Takes 40mg before breakfast and 20mg before dinner Fluticasone Furoate (FLONASE SENSIMIST) 27.5 mcg/actuation nasal spray Use 1 [place] in each nostril two times a day. [...] November 16, 2023 TIME: 11:31 AM CSN: [id number] Normal [facility] EGD Study observation Brock harris 11-16-2023 [facility] Gastrointestinal Endoscopy Patient Name: Ace Leonardo Procedure Date: 11/16/2023 11:54 AM Date of : 2000 Admit Type: Outpatient Age: 23 Room: [facility] Gender: Female Note Status: Finalized Attending MD: Ariel Guo MD, [id number] Procedure: Upper GI endoscopy Indications: Heartburn, Gastro-esophageal [...] be scheduled. Procedure Code(s): --- Professional --- 56536, Esophagogastroduodenoscopy, flexible, transoral; with biopsy, single or multiple Diagnosis Code(s): --- Professional --- R12, Heartburn K21.9, Gastro-esophageal reflux disease without esophagitis CPT copyright 2020 [employer]. All rights reserved. The codes documented in this report are preliminary and upon gas roller operator review may be revised to meet current compliance requirements. Attending Participation: I personally performed the entire procedure. Scope In: 12:10:16 PM Scope Out: 12:14:16 PM MD Ariel Tyler MD 11/16/2023 12:17:28 PM This report has been signed electronically by Da (more content not included)... [facility] Radiology Study observation (narrative) [facility] HISTORY PHYSICALon HISTORY PHYSICAL HNO ID: [id number] Author: ARIEL GUO MD Service: General Surgery Author Type: Physician Type: H&P Filed: 11/16/2023 11:07 Note Text: HISTORY AND PHYSICAL Ace Leonardo : 2000 REFERRING PHYSICIAN: SELF CHIEF COMPLAINT: Patient presents with: New Patient: EGD consult HPI: Ace is a 22 year old female referred for endoscopy. Ace notes regurgitation since I was young- before high school. Ace states that 21 [...] had a gastric emptying study done at [facility] on May that was normal. Patient denies any change in bowel habits, weight changes, blood in stools, black tarry stools or abdominal pain. Ace has not undergone prior endoscopy. CURRENT MEDICATIONS Current Outpatient Medications Medication Sig L-norgest/e.estradiol-e.est rad (JAIMIESS ORAL) mecobalamin, vitamin B12, (B12 ACTIVE) 1,000 mcg chew omeprazole (PRILOSEC) 40 mg capsule omeprazole (PRILOSEC) 20 mg capsule Takes 40mg before breakfast and 20mg before dinner Fluticasone Furoate (FLONASE SENSIMIST) 27.5 mcg/actuation nasal spray Use 1 [place] in each nostril two times a day. [...] entered by the nurse and reviewed by ga Nursing Notes: Ivis Richter LPN 09/21/2023 8:37 [...] history (more content not included)... [facility] SURGICAL PATHOLOGYon 024 CASE REPORT [facility] Comment on above: Order Comment: Speci men Type: TISSUE SPECIMENOrdering Facility: [facility] Address: [address] [place] [address] Result Comment: Surg [facility] Pathology Report Case: [id number] Authorizing Provider: Ariel Guo MD Collected: 11/16/2023 12:11 PM Ordering Location: [facility] Received: 11/16/2023 01:53 PM Pathologist: Gabe Pastrana MD Specimens: A) - Small Bowel, Duodenum, Biopsy B) - Stomach, Antrum, Biopsy C) - Esophagus, Distal, Biopsy D) - Esophagus, Mid, Biopsy Performed By: #### S ####[facility] LABCLIA [id number] [address] OF [place] DIAGNOSIS COMMENT C, D. No increase in intraepithelial eosinophils identified. Normal [facility] Comment on above: Order Comment: Speci men Type: TISSUE SPECIMENOrdering Facility: [facility] Address: [address] [place] [address] Performed By: #### S ####[facility] LABCLIA [id number] [address] FINAL DIAGNOSIS Normal [facility] Comment on above: Order Comment: Speci men Type: TISSUE SPECIMENOrdering Facility: [facility] Address: [address] [place] [address] Result Comment: A. S mall bowel, duodenum, biopsy: - Duodenal mucosa within normal limits. B. Stomach, antrum, biopsy: - Antral mucosa within normal limits. - No morphologic evidence of Helicobacter. C. Esophagus, distal, biopsy: - Squamous mucosa with mild reactive changes. D. Esophagus, mid, biopsy: - Squamous mucosa within normal limits. PB/kr 11/22/2023 Performed By: #### S ####[facility] LABCLIA [id number] [address] FINAL PERFORMING LAB Normal [facility] Comment on above: Order Comment: Speci men Type: TISSUE SPECIMENOrdering Facility: [facility] Address: [address] [place] [address] Result Comment: Diag nostic interpretation performed at [facility], [address] [place] [address] CLIA# [id number] Vp Clinical Research: Mario Glez M.D. Performed By: #### S ####[facility] LABIA [id number] [place] [address] [place] GROSS DESCRIPTION Normal [facility] Comment on above: Order Comment: Speci men Type: TISSUE SPECIMENOrdering Facility: [facility] Address: [address] [place] [address] Result Comment: A. S mall Bowel, Duodenum, [...] 0.2 cm. Totally submitted in one cassette. JC November 16, 2023 8:07 PM Gross examination performed at [facility], [address] [place] [address] Performed By: #### S ####[facility] LABIA [id number] [place] [address] [place] Upper GI endoscopyon 024 Upper GI endoscopy [facility] Gastro[facility]oscopy Patient Name: Ace Leonardo Procedure Date: 11/16/2023 11:54 AM Date of : 2000 Admit Type: Outpatient Age: 23 Room: [facility] Gender: Female Note Status: Finalized Attending MD: Ariel Guo MD, [id number] Procedure: Upper GI endoscopy Indications: Heartburn, Gastro-esophageal [...] be scheduled. Procedure Code(s): --- Professional --- 44462, Esophagogastroduodenoscopy, flexible, transoral; with biopsy, single or multiple Diagnosis Code(s): --- Professional --- R12, Heartburn K21.9, Gastro-esophageal reflux disease without esophagitis CPT copyright 2020 [employer]. All rights reserved. The codes documented in this report are preliminary and upon gas roller operator review may be revised to meet current compliance requirements. Attending Participation: I personally performed the entire procedure. Scope In: 12:10:16 PM Scope Out: 12:14:16 PM MD Ariel Tyler MD 11/16/2023 12:17:28 PM This report has been signed electronically by Ariel Guo MD Number of Addenda: 0 Note Initiated On: 11/16/2023 11:54 AM Estimated Blood Loss: Estimated blood loss was minimal. Normal [facility] C-REACTIVE PROTEINon 024 CRP [Mass/Vol] 1.2 mg/dL High NINF - 0.9 mg/dL [facility] CRP [Mass/Vol]on 09-05-2023 Interpretation and review of laboratory results Abnormal [facility] ESR Westergren method (Bld) [Velocity]on 09-05-2023 ESR (Bld) [Velocity] 5 mm/h [facility] Interpretation and review of laboratory results Normal [facility] ALLERGEN SKIN TEST-INHALANT 40on 08-31-2023 INHALANT 40 PERCUTAN EOUS & INTRADERMAL TESTING/ Mean Wheal & Flare [...] 0 mm F = 0 mm Beech, Ecuadorean 1:20 P: W = 0 mm F = 0 mm Birch Mix 1:20 P: W = 0 mm F = 0 mm Maple Mix 1:20 P: W = 0 mm F = 0 mm [place] ,Eastern 1:20 P: W = 0 mm F = 0 mm [place], [place] 1:20 P: W = 0 mm F = 0 mm [place], Red 1:20 P: W = 0 mm F = 0 mm [place], Black 1:20 P: W = 0 mm F = 0 mm [place], [place]cuadorean/Eastern 1:20 P: W = 0 mm F = 0 mm [place] Pollen, Black 1:20 P: W = 0 mm F = 0 mm [place], Black 1:20 P: W = 0 mm F = 0 mm [place] Grass 10,000 BAU/ml P : W = 0 mm F = 0 mm [place], /September 100,000 BAU/ml P: W = 0 mm F = 0 mm [place], [place] 100,000 BAU/ml P: W = 0 mm F = 0 mm [place] Grass 1:20 P: W = 0 mm F = 0 mm [place] 100,000 BAU/ml P: W = 0 mm F = 0 mm Perennial Lafferty, 100,000 BAU/ml P: W = 0 mm F = 0 mm Earl 100,000 BAU/ml P: W = 0 mm F = 0 mm [place] 1:20 P: W = 0 mm F = 0 mm Barber, sheep 1:20 P: W = 0 mm F = 0 mm Plantain, Ivorian 1:20 P: W = 0 mm F [...] = 7 mm F = 12 mm [facility] Laboratory - Chemistry and C hemistry - challengeOrdered By: Denise Tirado on 05-24-2023 Cobalamin (Vitamin B12) [Mass/Vol] 173 pg/mL 211-911 [facility] No Panel InformationOrdered By: Denise Tirado on 05-24-2023 Anti-Gliadin IgA Antibody 6 units 0-19 [facility] Comment on above: Negative 0 - 19 Weak Positive 20 - 30 Moderate to Strong Positive >30 Anti-Gliadin IgG Antibody 4 units 0-19 [facility] Comment on above: Negative 0 - 19 Weak Positive 20 - 30 Moderate to Strong Positive >30 Endomysial IgA Antibody Negative Negative [facility] Immunoglobulin A 191 mg/dL 87-352 [facility] Comment on above: Performed at: [place] [id number] Director: Rodney Jonas PhD, Phone: [phone] Tissue Transglutaminase IgG Ab 3 U/mL 0-5 [facility] Comment on above: Negative 0 - 5 Weak Positive 6 - 9 Positive >9 No Panel InformationOrdered By: Estephania Samuels on 05-24-2023 Free Triiodothyronine (T3) pg/dL 2.5 pg/mL 2.18-3.98 [facility] Serum or plasma thyroid stim ulating hormone (TSH) measurement (units/volume)Ordered By: Estephania Samuels on 05-24-2023 TSH Qn 2.64 uIU/mL 0.358-3.74 [facility] Serum tissue transglutaminas e IgA antibody assay (units/volume)Ordered By: Denise Tirado on 05-24-2023 tTG IgA Qn (S) <2 U/mL 0-3 [facility] Comment on above: Negative 0 - 3 Weak Positive 4 - 10 Positive >10 Tissue Transglutaminase (tTG) has been identified as the endomysial antigen. Studies have demonstr- ated that endomysial IgA antibodies have over 99% specificity for gluten sensitive enteropathy. Thin prep Papanicolaou smear with manual screeningOrdered By: Estephania Samuels on 05-24-2023 Thin prep Papanicolaou smear with manual screening 0.86 ng/dL 0.76-1.46 [facility] [place] GASTRIC EMPTYING SOLIDon 05-18-2023 [facility] Absolute lymphocyte countOrd ered By: Xavier Maloney on 11-14-2022 Lymphocytes Auto (Unsp spec) [#/Vol] 2.32 10*3/uL 0.83-4.51 [facility] Basophil percentageOrdered B y: Xavier Maloney on 11-14-2022 Basophils/100 WBC (Bld) 0.7 % 0-1 [facility] Chloride [Moles/Vol] 106 mmol/L 98-107 [facility] Eosinophils/100 WBC (Bld) 0.7 % 0-5 [facility] Glucose [Mass/Vol] 90 mg/dL 74-106 [facility] Neutrophils (Bld) [#/Vol] 4.0 10*3/uL 2.0-7.7 [facility] Neutrophils/100 WBC (Bld) 56.2 % 47-70 [facility] Potassium [Moles/Vol] 3.8 mmol/L 3.5-5.[address] [facility] Sodium [Moles/Vol] 139 mmol/L 136-145 [facility] WBC (Bld) [#/Vol] 7.1 10*3/uL 4.4-11.0 [facility] Blood erythrocytes count (nu mber/volume)Ordered By: Xavier Maloney on 11-14-2022 RBC (Bld) [#/Vol] 4.43 10*6/uL 4.2-5.4 [facility] Blood hemoglobin measurement (mass/volume)Ordered By: Xavier Maloney on 11-14-2022 Hemoglobin (Bld) [Mass/Vol] 12.5 g/dL 12.0-15.0 [facility] Blood lymphocytes/100 leukoc ytesOrdered By: Xavier Maloney on 11-14-2022 Lymphocytes/100 WBC (Bld) 32.6 % 19-41 [facility] Blood monocytes/100 leukocyt esOrdered By: Xavier Maloney on 11-14-2022 Monocytes/100 WBC (Bld) 9.7 % 0-10 [facility] Blood platelet mean volumeOr dered By: Xavier Maloney on 11-14-2022 Platelet mean volume (Bld) [Entitic vol] 10.0 fL 6.2-12.0 [facility] Determination of erythrocyte mean corpuscular volume (MCV)Ordered By: Xavier Maloney on 11-14-2022 MCV (RBC) [Entitic vol] 88.3 fL 81-99 [facility] Hematocrit Auto (Bld) [Volum e fraction]Ordered By: Xavier Maloney on 11-14-2022 Hematocrit (Bld) [Volume fraction] 39.1 % 37-47 [facility] - Chemistry and C hemistry - challengeOrdered By: Xavier Maloney on 11-14-2022 CO2 [Moles/Vol] 27.0 mmol/L 21.0-32.0 [facility] Urea nitrogen/Creatinine [Mass ratio] 11.2 mg/mg 10-20 [facility] - Hematology and Cell countsOrdered By: Xavier Maloney on 11-14-2022 Erythrocyte distribution width (RBC) [Entitic vol] 42.5 fL 35.1-43.9 [facility] Erythrocyte distribution width (RBC) [Ratio] 13.0 % 11.6-14.6 [facility] Immature granulocytes/100 WBC (Bld) 0.100 % 0.0-0.9 [facility] Comment on above: IG% - Immature Granu locytes (promyelocytes, myelocytes and metamyelocytes) > 1% indicates that a LEFT SHIFT is Present. MCH (RBC) [Entitic mass] 28.2 pg 27.0-32.0 [facility] Nucleated RBC/100 WBC (Bld) [Ratio] 0 % 0-5 [facility] MCHC Auto (RBC) [Mass/Vol]Or dered By: Xavier Maloney on 11-14-2022 MCHC (RBC) [Mass/Vol] 32.0 g/dL 32-[address] [facility] No Panel InformationOrdered By: Xavier Maloney on 11-14-2022 Estimated Creatinine Clearance Calc 79.08 ml/min [facility] Estimated GFR (MDRD) Amer 103 mL/min >60 [facility] Comment on above: GFR Calc Estimated GFR (MDRD) Non-Af Amer 85 mL/min >60 [facility] Comment on above: Non- GFR Calc Troponin I High Sensitivity 3 pg/mL 3.0-54.0 [facility] Comment on above: Please Note: New Diana t Units and Gender Specific Reference Ranges. For more information see Policy Stat Procedure [place] High Sensitivity Troponin (TNIH) and attachments. Platelets bldOrdered By: Barry Maloney on 11-14-2022 Platelets (Bld) [#/Vol] 357 10*3/uL 150-450 [facility] Serum or plasma calcium altagracia urement (mass/volume)Ordered By: Xavier Maloney on 11-14-2022 Calcium [Mass/Vol] 8.7 mg/dL 8.5-10.1 [facility] Serum or plasma creatinine m easurement (mass/volume)Ordered By: Xavier Maloney on 11-14-2022 Creatinine [Mass/Vol] 0.89 mg/dL 0.55-1.[address] [facility] Comment on above: The validity of the calculated GFR & GFRAA in patients over 70 years has not been determined. Clinical correlation is essential. Serum or plasma urea nitroge n measurement (mass/volume)Ordered By: Xavier Maloney on 11-14-2022 Urea nitrogen [Mass/Vol] 10 mg/dL 7-18 [facility] Thin prep Papanicolaou smear with manual screeningOrdered By: Xavier Maloney on 11-14-2022 Thin prep Papanicolaou smear with manual screening 6 5-15 [facility] Absolute lymphocyte countOrd ered By: Espinoza Montero on 10-21-2022 Lymphocytes Auto (Unsp spec) [#/Vol] 2.59 10*3/uL 0.83-4.51 [facility] Basophil percentageOrdered B y: Espinoza Montero on 10-21-2022 Basophils/100 WBC (Bld) 0.6 % 0-1 [facility] Bilirubin [Mass/Vol] 0.30 mg/dL 0.20-1.00 [facility] Comment on above: For patients on eltr ombopag therapy, use of Dimension [place] TBIL is not recommended. Chloride [Moles/Vol] 105 mmol/L 98-107 [facility] Eosinophils/100 WBC (Bld) 0.7 % 0-5 [facility] Glucose [Mass/Vol] 89 mg/dL 74-106 [facility] Neutrophils (Bld) [#/Vol] 4.7 10*3/uL 2.0-7.7 [facility] Neutrophils/100 WBC (Bld) 58.2 % 47-70 [facility] Potassium [Moles/Vol] 3.7 mmol/L 3.5-5.[address] [facility] Protein [Mass/Vol] 7.0 g/dL 6.4-8.2 [facility] Sodium [Moles/Vol] 138 mmol/L 136-145 [facility] WBC (Bld) [#/Vol] 8.1 10*3/uL 4.4-11.0 [facility] Blood erythrocytes count (nu mber/volume)Ordered By: Espinoza Montero on 10-21-2022 RBC (Bld) [#/Vol] 4.40 10*6/uL 4.2-5.4 [facility] Blood hemoglobin measurement (mass/volume)Ordered By: Espinoza Montero on 10-21-2022 Hemoglobin (Bld) [Mass/Vol] 12.6 g/dL 12.0-15.0 [facility] Blood lymphocytes/100 leukoc ytesOrdered By: Espinoza Montero on 10-21-2022 Lymphocytes/100 WBC (Bld) 32.1 % 19-41 [facility] Blood monocytes/100 leukocyt esOrdered By: Espinoza Montero on 10-21-2022 Monocytes/100 WBC (Bld) 7.4 % 0-10 [facility] Blood platelet mean volumeOr dered By: Espinoza Montero on 10-21-2022 Platelet mean volume (Bld) [Entitic vol] 10.2 fL 6.2-12.0 [facility] Determination of erythrocyte mean corpuscular volume (MCV)Ordered By: Espinoza Montero on 10-21-2022 MCV (RBC) [Entitic vol] 87.5 fL 81-99 [facility] Hematocrit Auto (Bld) [Volum e fraction]Ordered By: Espinoza Montero on 10-21-2022 Hematocrit (Bld) [Volume fraction] 38.5 % 37-47 [facility] - Chemistry and C hemistry - challengeOrdered By: Espinoza Montero on 10-21-2022 ALP [Catalytic activity/Vol] 63 U/L 45-117 [facility] ALT [Catalytic activity/Vol] 19 U/L 13-56 [facility] CO2 [Moles/Vol] 27.0 mmol/L 21.0-32.0 [facility] Globulin (S) [Mass/Vol] 3.7 g/dL 2.2-4.2 [facility] Urea nitrogen/Creatinine [Mass ratio] 13.6 mg/mg 10-20 [facility] - Hematology and Cell countsOrdered By: Espinoza Montero on 10-21-2022 Erythrocyte distribution width (RBC) [Entitic vol] 42.5 fL 35.1-43.9 [facility] Erythrocyte distribution width (RBC) [Ratio] 13.2 % 11.6-14.6 [facility] Immature granulocytes/100 WBC (Bld) 1.000 % 0.0-0.9 [facility] Comment on above: IG% - Immature Granu locytes (promyelocytes, myelocytes and metamyelocytes) > 1% indicates that a LEFT SHIFT is Present. MCH (RBC) [Entitic mass] 28.6 pg 27.0-32.0 [facility] Nucleated RBC/100 WBC (Bld) [Ratio] 0 % 0-5 [facility] MCHC Auto (RBC) [Mass/Vol]Or dered By: Espinoza Montero on 10-21-2022 MCHC (RBC) [Mass/Vol] 32.7 g/dL 32-[address] [facility] No Panel InformationOrdered By: Espinoza Montero on 10-21-2022 Estimated Creatinine Clearance Calc 79.98 ml/min [facility] Estimated GFR (MDRD) Amer 104 mL/min >60 [facility] Comment on above: GFR Calc Estimated GFR (MDRD) Non-Af Amer 86 mL/min >60 [facility] Comment on above: Non- GFR Calc Troponin I High Sensitivity < 3 pg/mL 3.0-54.0 [facility] Comment on above: Please Note: New Diana t Units and Gender Specific Reference Ranges. For more information see Policy Stat Procedure [place] High Sensitivity Troponin (TNIH) and attachments. Platelets bldOrdered By: Jennifer Montero on 10-21-2022 Platelets (Bld) [#/Vol] 332 10*3/uL 150-450 [facility] Serum or plasma albumin altagracia urement (mass/volume)Ordered By: Espinoza Montero on 10-21-2022 Albumin [Mass/Vol] 3.3 g/dL 3.2-5.0 [facility] Serum or plasma albumin/glob ulin mass ratioOrdered By: Espinoza Montero on 10-21-2022 Albumin/Globulin [Mass ratio] 0.9 {ratio} 0.9-2.4 [facility] Serum or plasma calcium altagracia urement (mass/volume)Ordered By: Espinoza Montero on 10-21-2022 Calcium [Mass/Vol] 8.5 mg/dL 8.5-10.1 [facility] Serum or plasma creatinine m easurement (mass/volume)Ordered By: Espinoza Montero on 10-21-2022 Creatinine [Mass/Vol] 0.88 mg/dL 0.55-1.[address] [facility] Comment on above: The validity of the calculated GFR & GFRAA in patients over 70 years has not been determined. Clinical correlation is essential. Serum or plasma urea nitroge n measurement (mass/volume)Ordered By: Espinoza Montero on 10-21-2022 Urea nitrogen [Mass/Vol] 12 mg/dL 7-18 [facility] Thin prep Papanicolaou smear with manual screeningOrdered By: Espinoza Montero on 10-21-2022 Thin prep Papanicolaou smear with manual screening 16 U/L 15-37 [facility] Thin prep Papanicolaou smear with manual screening 6 5-15 [facility] Absolute lymphocyte countOrd ered By: Moreno Craig on 09-06-2022 Lymphocytes Auto (Unsp spec) [#/Vol] 2.07 10*3/uL 0.83-4.51 [facility] Basophil percentageOrdered B y: Moreno Craig on 09-06-2022 Basophils/100 WBC (Bld) 0.6 % 0-1 [facility] Bilirubin [Mass/Vol] 0.40 mg/dL 0.20-1.00 [facility] Comment on above: For patients on eltr ombopag therapy, use of Dimension [place] TBIL is not recommended. Chloride [Moles/Vol] 106 mmol/L 98-107 [facility] Eosinophils/100 WBC (Bld) 0.6 % 0-5 [facility] Glucose [Mass/Vol] 95 mg/dL 74-106 [facility] Neutrophils (Bld) [#/Vol] 4.3 10*3/uL 2.0-7.7 [facility] Neutrophils/100 WBC (Bld) 61.4 % 47-70 [facility] Potassium [Moles/Vol] 3.8 mmol/L 3.5-5.[address] [facility] Protein [Mass/Vol] 7.1 g/dL 6.4-8.2 [facility] Sodium [Moles/Vol] 139 mmol/L 136-145 [facility] WBC (Bld) [#/Vol] 7.0 10*3/uL 4.4-11.0 [facility] Blood erythrocytes count (nu mber/volume)Ordered By: Moreno Craig on 09-06-2022 RBC (Bld) [#/Vol] 4.70 10*6/uL 4.2-5.4 [facility] Blood hemoglobin measurement (mass/volume)Ordered By: Moreon Craig on 09-06-2022 Hemoglobin (Bld) [Mass/Vol] 13.1 g/dL 12.0-15.0 [facility] Blood lymphocytes/100 leukoc ytesOrdered By: Moreno Craig on 09-06-2022 Lymphocytes/100 WBC (Bld) 29.5 % 19-41 [facility] Blood monocytes/100 leukocyt esOrdered By: Moreno Craig on 09-06-2022 Monocytes/100 WBC (Bld) 7.3 % 0-10 [facility] Blood platelet mean volumeOr dered By: Moreno Craig on 09-06-2022 Platelet mean volume (Bld) [Entitic vol] 9.5 fL 6.2-12.0 [facility] Determination of erythrocyte mean corpuscular volume (MCV)Ordered By: Moreno Craig on 09-06-2022 MCV (RBC) [Entitic vol] 86.6 fL 81-99 [facility] Hematocrit Auto (Bld) [Volum e fraction]Ordered By: Moreno Craig on 09-06-2022 Hematocrit (Bld) [Volume fraction] 40.7 % 37-47 [facility] - Chemistry and C hemistry - challengeOrdered By: Moreno Craig on 09-06-2022 ALP [Catalytic activity/Vol] 71 U/L 45-117 [facility] ALT [Catalytic activity/Vol] 22 U/L 13-56 [facility] CO2 [Moles/Vol] 27.0 mmol/L 21.0-32.0 [facility] Globulin (S) [Mass/Vol] 3.7 g/dL 2.2-4.2 [facility] Lipase [Catalytic activity/Vol] 15 U/L 13-75 [facility] Comment on above: Please note:LIPASE r evised reference range effective 22. New Lipase methodology. Expected to produce lower values than the previous assay method. NEW Reference Range: 13 - 75 U/L Urea nitrogen/Creatinine [Mass ratio] 10.5 mg/mg 10-20 [facility] - Hematology and Cell countsOrdered By: Moreno Craig on 09-06-2022 Erythrocyte distribution width (RBC) [Entitic vol] 40.6 fL 35.1-43.9 [facility] Erythrocyte distribution width (RBC) [Ratio] 12.7 % 11.6-14.6 [facility] Immature granulocytes/100 WBC (Bld) 0.600 % 0.0-0.9 [facility] Comment on above: IG% - Immature Granu locytes (promyelocytes, myelocytes and metamyelocytes) > 1% indicates that a LEFT SHIFT is Present. MCH (RBC) [Entitic mass] 27.9 pg 27.0-32.0 [facility] Nucleated RBC/100 WBC (Bld) [Ratio] 0 % 0-5 [facility] MCHC Auto (RBC) [Mass/Vol]Or dered By: Moreno Craig on 09-06-2022 MCHC (RBC) [Mass/Vol] 32.2 g/dL 32-[address] [facility] No Panel InformationOrdered By: Moreno Craig on 09-06-2022 Estimated Creatinine Clearance Calc 82.53 ml/min [facility] Estimated GFR (MDRD) Amer 108 mL/min >60 [facility] Comment on above: GFR Calc Estimated GFR (MDRD) Non-Af Amer 89 mL/min >60 [facility] Comment on above: Non- GFR Calc Platelets bldOrdered By: Lenny Craig on 09-06-2022 Platelets (Bld) [#/Vol] 348 10*3/uL 150-450 [facility] Serum or plasma albumin altagracia urement (mass/volume)Ordered By: Moreno Craig on 09-06-2022 Albumin [Mass/Vol] 3.4 g/dL 3.2-5.0 [facility] Serum or plasma albumin/glob ulin mass ratioOrdered By: Moreno Craig on 09-06-2022 Albumin/Globulin [Mass ratio] 0.9 {ratio} 0.9-2.4 [facility] Serum or plasma calcium altagracia urement (mass/volume)Ordered By: Moreno Craig on 09-06-2022 Calcium [Mass/Vol] 8.6 mg/dL 8.5-10.1 [facility] Serum or plasma creatinine m easurement (mass/volume)Ordered By: Moreno Craig on 09-06-2022 Creatinine [Mass/Vol] 0.86 mg/dL 0.55-1.[address] [facility] Comment on above: The validity of the calculated GFR & GFRAA in patients over 70 years has not been determined. Clinical correlation is essential. Serum or plasma urea nitroge n measurement (mass/volume)Ordered By: Moreno Craig on 09-06-2022 Urea nitrogen [Mass/Vol] 9 mg/dL 7-18 [facility] Thin prep Papanicolaou smear with manual screeningOrdered By: Moreno Craig on 09-06-2022 Thin prep Papanicolaou smear with manual screening 18 U/L 15-37 [facility] Thin prep Papanicolaou smear with manual screening 6 5-15 [facility] Beta hCG serum qualOrdered B y: Dr. Vargas on 06-20-2022 Beta HCG ( test) Ql Negative [facility] Absolute lymphocyte countOrd ered By: Dr. Vargas on 05-11-2022 Lymphocytes Auto (Unsp spec) [#/Vol] 2.11 10*3/uL 0.83-4.51 [facility] Basophil percentageOrdered B y: Dr. Vargas on 05-11-2022 Basophils/100 WBC (Bld) 0.6 % 0-1 [facility] Chloride [Moles/Vol] 105 mmol/L 98-107 [facility] Eosinophils/100 WBC (Bld) 0.8 % 0-5 [facility] Glucose [Mass/Vol] 93 mg/dL 74-106 [facility] Neutrophils (Bld) [#/Vol] 3.9 10*3/uL 2.0-7.7 [facility] Neutrophils/100 WBC (Bld) 58.4 % 47-70 [facility] Potassium [Moles/Vol] 3.9 mmol/L 3.5-5.[address] [facility] Sodium [Moles/Vol] 140 mmol/L 136-145 [facility] WBC (Bld) [#/Vol] 6.6 10*3/uL 4.4-11.0 [facility] Beta hCG serum qualOrdered B y: Dr. Vargas on 05-11-2022 Beta HCG ( test) Ql Negative [facility] Blood erythrocytes count (nu mber/volume)Ordered By: Dr. Vargas on 05-11-2022 RBC (Bld) [#/Vol] 4.75 10*6/uL 4.2-5.4 [facility] Blood hemoglobin measurement (mass/volume)Ordered By: Dr. Vargas on 05-11-2022 Hemoglobin (Bld) [Mass/Vol] 13.0 g/dL 12.0-15.0 [facility] Blood lymphocytes/100 leukoc ytesOrdered By: Dr. Vargas on 05-11-2022 Lymphocytes/100 WBC (Bld) 32.0 % 19-41 [facility] Blood monocytes/100 leukocyt esOrdered By: Dr. Vargas on 01-26-2023 Monocytes/100 WBC (Bld) 7.9 % 0-10 [facility] Blood platelet mean volumeOr dered By: Dr. Vargas on 05-11-2022 Platelet mean volume (Bld) [Entitic vol] 10.2 fL 6.2-12.0 [facility] Determination of erythrocyte mean corpuscular volume (MCV)Ordered By: Dr. Vargas on 05-11-2022 MCV (RBC) [Entitic vol] 87.6 fL 81-99 [facility] Hematocrit Auto (Bld) [Volum e fraction]Ordered By: Dr. Vargas on 05-11-2022 Hematocrit (Bld) [Volume fraction] 41.6 % 37-47 [facility] - Chemistry and C hemistry - challengeOrdered By: Dr. Vargas on 05-11-2022 CO2 [Moles/Vol] 27.0 mmol/L 21.0-32.0 [facility] Urea nitrogen/Creatinine [Mass ratio] 10.0 mg/mg 10-20 [facility] - Hematology and Cell countsOrdered By: Dr. Vargas on 05-11-2022 Erythrocyte distribution width (RBC) [Entitic vol] 42.9 fL 35.1-43.9 [facility] Erythrocyte distribution width (RBC) [Ratio] 13.2 % 11.6-14.6 [facility] Immature granulocytes/100 WBC (Bld) 0.300 % 0.0-0.9 [facility] Comment on above: IG% - Immature Granu locytes (promyelocytes, myelocytes and metamyelocytes) > 1% indicates that a LEFT SHIFT is Present. MCH (RBC) [Entitic mass] 27.4 pg 27.0-32.0 [facility] Nucleated RBC/100 WBC (Bld) [Ratio] 0 % 0-5 [facility] MCHC Auto (RBC) [Mass/Vol]Or dered By: Dr. Vargas on 05-11-2022 MCHC (RBC) [Mass/Vol] 31.3 g/dL 32-[address] [facility] No Panel InformationOrdered By: Dr. Vargas on 05-11-2022 Estimated GFR (MDRD) Amer 117 mL/min >60 [facility] Comment on above: GFR Calc Estimated GFR (MDRD) Non-Af Amer 97 mL/min >60 [facility] Comment on above: Non- GFR Calc Platelets bldOrdered By: Dr. Vargas on 05-11-2022 Platelets (Bld) [#/Vol] 340 10*3/uL 150-450 [facility] Serum or plasma calcium altagracia urement (mass/volume)Ordered By: Dr. Vargas on 05-11-2022 Calcium [Mass/Vol] 9.1 mg/dL 8.5-10.1 [facility] Serum or plasma creatinine m easurement (mass/volume)Ordered By: Dr. Vargas on 05-11-2022 Creatinine [Mass/Vol] 0.80 mg/dL 0.55-1.[address] [facility] Comment on above: The validity of the calculated GFR & GFRAA in patients over 70 years has not been determined. Clinical correlation is essential. Serum or plasma urea nitroge n measurement (mass/volume)Ordered By: Dr. Vargas on 05-11-2022 Urea nitrogen [Mass/Vol] 8 mg/dL 7-18 [facility] Thin prep Papanicolaou smear with manual screeningOrdered By: Dr. Vargas on 05-11-2022 Thin prep Papanicolaou smear with manual screening 8 5-15 [facility] Vital Signs Date Time Vital Sign Value Performing Clinician Facility 10-22-2024 14:040 Body height 157.5 cm Phillip Ferreira MD Work Phone: [facility] 10-22-2024 14:040 Body mass index (BMI) [Ratio] 42.07 kg/m2 Phillip Ferreira MD Work Phone: [facility] 10-22-2024 14:-040 Body temperature 98.4 [degF] Phillip Ferreira MD Work Phone: [facility] 10-22-2024 14:040 Body weight 104.33 kg Phillip Ferreira MD Work Phone: [facility] 10-22-2024 [id number] Diastolic blood pressure 78 mm[Hg] Phillip Ferreira MD Work Phone: [facility] 10-22-2024 14:26-0400 Heart rate 106 /min Phillip Ferreira MD Work Phone: [facility] 10-22-2024 14:26-0400 Respiratory rate 12 /min Phillip Ferreira MD Work Phone: [facility] 10-22-2024 14:26-0400 SaO2% (BldA) [Mass fraction] 97 % Phillip Ferreira MD Work Phone: [facility] 10-22-2024 14:26-0400 Systolic blood pressure 120 mm[Hg] Phillip Ferreira MD Work Phone: [facility] 09-17-2024 12:58-0400 Body mass index (BMI) [Ratio] 40.97 kg/m2 Monse Oseas RECYCLING OPERATIONS MANAGER.GEAR DESIGN ENGINEER Work Phone: [facility] 09-17-2024 12:58-0400 Body temperature 98.4 [degF] Monse Oseas RECYCLING OPERATIONS MANAGER.GEAR DESIGN ENGINEER Work Phone: [facility] 09-17-2024 12:58-0400 Body weight 101.61 kg Monse Oseas RECYCLING OPERATIONS MANAGER.GEAR DESIGN ENGINEER Work Phone: [facility] 09-17-2024 12:58-0400 Diastolic blood pressure 83 mm[Hg] Monse Oseas RECYCLING OPERATIONS MANAGER.GEAR DESIGN ENGINEER Work Phone: [facility] 09-17-2024 12:58-0400 Heart rate 87 /min Monse Oseas RECYCLING OPERATIONS MANAGER.GEAR DESIGN ENGINEER Work Phone: [facility] 09-17-2024 12:58-0400 Respiratory rate 14 /min Monse Oseas RECYCLING OPERATIONS MANAGER.GEAR DESIGN ENGINEER Work Phone: [facility] 09-17-2024 12:58-0400 SaO2% (BldA) [Mass fraction] 98 % Monse Oseas RECYCLING OPERATIONS MANAGER.GEAR DESIGN ENGINEER Work Phone: [facility] 09-17-2024 12:58-0400 Systolic blood pressure 133 mm[Hg] Monse Oseas RECYCLING OPERATIONS MANAGER.GEAR DESIGN ENGINEER Work Phone: [facility] 08-05-2024 13:01-0400 Body mass index (BMI) [Ratio] 39.43 kg/m2 Ariel Guo MD Work Phone: [facility] 08-05-2024 13:01-0400 Body temperature 98.2 [degF] Ariel Guo MD Work Phone: [facility] 08-05-2024 13:01-0400 Body weight 97.8 kg Ariel Guo MD Work Phone: [facility] 08-05-2024 13:01-0400 Diastolic blood pressure 87 mm[Hg] Ariel Guo MD Work Phone: [facility] 08-05-2024 13:01-0400 Heart rate 101 /min Ariel Guo MD Work Phone: [facility] 08-05-2024 13:01-0400 Respiratory rate 14 /min Ariel Guo MD Work Phone: [facility] 08-05-2024 13:01-0400 SaO2% (BldA) [Mass fraction] 98 % Ariel Guo MD Work Phone: [facility] 08-05-2024 13:01-0400 Systolic blood pressure 127 mm[Hg] Ariel Guo MD Work Phone: [facility] 07-24-2024 08:49-0400 Body height 157.5 cm Pac 1 Work Phone: [facility] 07-24-2024 08:49-0400 Body mass index (BMI) [Ratio] 39.32 kg/m2 Pac 1 Work Phone: [facility] 07-24-2024 08:49-0400 Body temperature 98.1 [degF] Pac 1 Work Phone: [facility] 07-24-2024 08:49-0400 Body weight 97.52 kg Pac 1 Work Phone: [facility] 07-24-2024 08:49-0400 Diastolic blood pressure 72 mm[Hg] Pacc 1 Work Phone: [facility] 07-24-2024 08:49-0400 Heart rate 86 /min Pacc 1 Work Phone: [facility] 07-24-2024 08:49-0400 Respiratory rate 14 /min Pacc 1 Work Phone: [facility] 07-24-2024 08:49-0400 SaO2% (BldA) [Mass fraction] 100 % Pacc 1 Work Phone: [facility] 07-24-2024 08:49-0400 Systolic blood pressure 114 mm[Hg] Pacc 1 Work Phone: [facility] 07-22-2024 08:51-0400 Body height 157.5 cm Ariel Guo MD Work Phone: [facility] 07-22-2024 08:51-0400 Body mass index (BMI) [Ratio] 39.98 kg/m2 Ariel Guo MD Work Phone: [facility] 07-22-2024 08:51-0400 Body temperature 97.11 [degF] Ariel Guo MD Work Phone: [facility] 07-22-2024 08:51-0400 Body weight 99.16 kg Ariel Guo MD Work Phone: [facility] 07-22-2024 08:51-0400 Diastolic blood pressure 78 mm[Hg] Ariel Guo MD Work Phone: [facility] 07-22-2024 08:51-0400 Heart rate 97 /min Ariel Guo MD Work Phone: [facility] 07-22-2024 08:51-0400 SaO2% (BldA) [Mass fraction] 98 % Ariel Guo MD Work Phone: [facility] 07-22-2024 08:51-0400 Systolic blood pressure 118 mm[Hg] Ariel Guo MD Work Phone: [facility] 06-02-2024 11:42-0500 Body mass index (BMI) [Ratio] 43.02 kg/m2 Michelle Clutter PA-C Work Phone: [facility] 06-02-2024 11:42-0500 Body temperature 98.8 [degF] Michelle Clutter PA-C Work Phone: [facility] 06-02-2024 11:42-0500 Body weight 106.7 kg Michelle Clutter PA-C Work Phone: [facility] 06-02-2024 11:42-0500 Diastolic blood pressure 86 mm[Hg] Michelle Clutter PA-C Work Phone: [facility] 06-02-2024 11:42-0500 Heart rate 108 /min Michelle Clutter PA-C Work Phone: [facility] 06-02-2024 11:42-0500 Respiratory rate 18 /min Michelle Clutter PA-C Work Phone: [facility] 06-02-2024 11:42-0500 SaO2% (BldA) [Mass fraction] 99 % Michelle Clutter PA-C Work Phone: [facility] 06-02-2024 11:42-0500 Systolic blood pressure 142 mm[Hg] Michelle Clutter PA-C Work Phone: [facility] 03-18-2024 09:57-0500 Body mass index (BMI) [Ratio] 42.8 kg/m2 Hemalatha er PA-C Work Phone: [facility] 03-18-2024 09:57-0500 Body weight 106.14 kg Hemalatha Queener PA-C Work Phone: [facility] 03-18-2024 09:57-0500 Diastolic blood pressure 78 mm[Hg] Hemalatha Gallegoer PA-C Work Phone: [facility] 03-18-2024 09:57-0500 Heart rate 84 /min Hemalatha Gallegoer PA-C Work Phone: [facility] 03-18-2024 09:57-0500 SaO2% (BldA) [Mass fraction] 99 % Hemalatha Gallegomelodie REYES-C Work Phone: [facility] 03-18-2024 09:57-0500 Systolic blood pressure 117 mm[Hg] Hemalatha Anthony PA-C Work Phone: [facility] 02-12-2024 10:54-0400 Body mass index (BMI) [Ratio] 40.97 kg/m2 Deana Tompkins RECYCLING OPERATIONS MANAGER.GEAR DESIGN ENGINEER Work Phone: [facility] 02-12-2024 10:54-0400 Body temperature 100.4 [degF] Deana Tompkins RECYCLING OPERATIONS MANAGER.GEAR DESIGN ENGINEER Work Phone: [facility] 02-12-2024 10:54-0400 Body weight 101.6 kg Deana Tompkins RECYCLING OPERATIONS MANAGER.GEAR DESIGN ENGINEER Work Phone: [facility] 02-12-2024 10:54-0400 Diastolic blood pressure 82 mm[Hg] Deana Tompkins RECYCLING OPERATIONS MANAGER.GEAR DESIGN ENGINEER Work Phone: [facility] 02-12-2024 10:54-0400 Heart rate 112 /min Deana Tompkins RECYCLING OPERATIONS MANAGER.GEAR DESIGN ENGINEER Work Phone: [facility] 02-12-2024 10:54-0400 Respiratory rate 18 /min Deana Tompkins RECYCLING OPERATIONS MANAGER.GEAR DESIGN ENGINEER Work Phone: [facility] 02-12-2024 10:54-0400 SaO2% (BldA) [Mass fraction] 98 % Deana Tompkins RECYCLING OPERATIONS MANAGER.GEAR DESIGN ENGINEER Work Phone: [facility] 02-12-2024 10:54-0400 Systolic blood pressure 122 mm[Hg] Deana Tompkins RECYCLING OPERATIONS MANAGER.GEAR DESIGN ENGINEER Work Phone: [facility] 02-06-2024 14:08-0400 Diastolic blood pressure 80 mm[Hg] Sidney Boone MD Work Phone: [facility] 02-06-2024 14:08-0400 Heart rate 90 /min Sidney Boone MD Work Phone: [facility] 02-06-2024 14:08-0400 Respiratory rate 18 /min Sidney Boone MD Work Phone: [facility] 02-06-2024 14:08-0400 SaO2% (BldA) [Mass fraction] 100 % Sidney Boone MD Work Phone: [facility] 02-06-2024 14:08-0400 Systolic blood pressure 122 mm[Hg] Sidney Boone MD Work Phone: [facility] 02-06-2024 13:52-0400 Body temperature 97.2 [degF] Sidney Boone MD Work Phone: [facility] 01-30-2024 09:36-0400 Body height 157.5 cm Sidney Boone MD Work Phone: [facility] 01-30-2024 09:36-0400 Body mass index (BMI) [Ratio] 41.34 kg/m2 Sidney Boone MD Work Phone: [facility] 01-30-2024 09:36-0400 Body weight 102.51 kg Sidney Boone MD Work Phone: [facility] 01-30-2024 09:36-0400 Diastolic blood pressure 77 mm[Hg] Sidney Boone MD Work Phone: [facility] 01-30-2024 09:36-0400 Heart rate 72 /min Sidney Boone MD Work Phone: [facility] 01-30-2024 09:36-0400 Respiratory rate 18 /min Sidney Boone MD Work Phone: [facility] 01-30-2024 09:36-0400 Systolic blood pressure 131 mm[Hg] Sidney Boone MD Work Phone: [facility] 11-16-2023 13:00-0400 Diastolic blood pressure 80 mm[Hg] Ariel Guo MD Work Phone: [facility] 11-16-2023 13:00-0400 Heart rate 86 /min Ariel Guo MD Work Phone: [facility] 11-16-2023 13:00-0400 SaO2% (BldA) [Mass fraction] 100 % Ariel Guo MD Work Phone: [facility] 11-16-2023 13:00-0400 Systolic blood pressure 140 mm[Hg] Ariel Guo MD Work Phone: [facility] 11-16-2023 12:45-0400 Respiratory rate 18 /min Ariel Guo MD Work Phone: [facility] 11-16-2023 12:19-0400 Body temperature 98.4 [degF] Ariel Guo MD Work Phone: [facility] 09-21-2023 08:10-0400 Body mass index (BMI) [Ratio] 35.7 kg/m2 Ariel Guo MD Work Phone: [facility] 09-21-2023 08:10-0400 Body weight 99.79 kg Ariel Guo MD Work Phone: [facility] 09-05-2023 10:28-0400 Body mass index (BMI) [Ratio] 36.02 kg/m2 Hemalatha Queener PA-C Work Phone: [facility] 09-05-2023 10:28-0400 Body weight 100.7 kg Hemalatha Queener PA-C Work Phone: [facility] 09-05-2023 10:28-0400 Diastolic blood pressure 80 mm[Hg] Hemalatha Gallegoer PA-C Work Phone: [facility] 09-05-2023 10:28-0400 Heart rate 69 /min Hemalatha Queener PA-C Work Phone: [facility] 09-05-2023 10:28-0400 Respiratory rate 18 /min Hemalatha Queener PA-C Work Phone: [facility] 09-05-2023 10:28-0400 SaO2% (BldA) [Mass fraction] 100 % Hemalatha Queener PA-C Work Phone: [facility] 09-05-2023 10:28-0400 Systolic blood pressure 121 mm[Hg] Hemalatha Anthony PA-C Work Phone: [facility] 08-31-2023 08:26-0400 Body mass index (BMI) [Ratio] 35.77 kg/m2 Zita Tamayo MD Work Phone: [facility] 08-31-2023 08:26-0400 Body weight 100 kg Zita Tamayo MD Work Phone: [facility] 08-31-2023 08:26-0400 Diastolic blood pressure 83 mm[Hg] Zita Tamayo MD Work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 Urine microalbumin profile DTaP,Tdap,Td Vaccine (6 - Td or Tdap) [facility] Start: 10-22-2024 End: 10-22-2024 Patient encounter procedure 10/22/2024 2:30 PM EDT Office Visit General Surgery [address] [address] Phillip Ferreira MD [address] [place] [address] 2 week follow up General Surgery Comment on above: 2 week follow up Start: 10-02-2024 End: 10-02-2024 Patient encounter procedure General Surgery Comment on above: ambilical incision with Jhon per Blai r PROCEDURE: Injection umbilical incision with Jhon per Oseas. [facility] Start: 09-17-2024 End: 09-17-2024 Patient encounter procedure 09/17/2024 10:30 AM EDT Office Visit General Surgery [address] [place] [address] Monse Chapin APRN.GEAR DESIGN ENGINEER [address] [address] Post op Lap [facility] - General Surgery Comment on above: Post op Lap Genesis 09-03 Start: 08-27-2024 End: 08-27-2024 Patient encounter procedure Neurology Comment on above: 6 month follow up, POTS Post op Lap Genesis Start: 08-08-2024 End: 08-08-2024 Patient encounter procedure 08/08/2024 8:30 AM EDT Office Visit General Surgery [address] [facility] [place] [address] Monse Chapin APRN.GEAR DESIGN ENGINEER [address] [facility] [place] [address] Post op Lap Genesis 07/30/2024 with path. Patient requested sooner post op / r/s from 08-27. Hx updated. [facility] General Surgery Comment on above: Post op Lap Genesis 07/30/2024 with path. Patient requested sooner post op / r/s from 08-27. Hx updated. [facility] Start: 07-30-2024 End: 07-30-2024 Admission to same day surgery center 07/30/2024 9:54 AM EDT - 07/30/2024 11:33 AM EDT Surgery [facility] Surgery [address] [place] [address] Ariel Guo MD [address] [place] [address] LAPAROSCOPIC CHOLECYSTECTOMY POSSIBLE OPEN [facility] Surgery Comment on above: LAPAROSCOPIC CHOLECYSTECTOMY POSSIBLE OP EN Start: 07-30-2024 End: 07-30-2024 Laparoscopy surg cholecystectomy LAPAROSCOPIC CHOLECYSTECTOMY POSSIBLE OPEN Biliary dyskinesia RUQ abdominal pain 07/30/2024 9:54 AM EDT ME OR Start: 07-30-2024 Subsequent hospital visit by physician 07/30/2024 9:54 AM EDT Hospital Encounter [facility] [address] [place] [address] Ariel Guo MD [address] [facility] [place] [address] Biliary dyskinesia [K82.8], RUQ abdominal pain [R10.11] [facility] Comment on above: Biliary dyskinesia [K82.8], RUQ abdomina l pain [R10.11] Start: 07-24-2024 End: 07-24-2024 Anesthesia consultation 07/24/2024 9:20 AM EDT PAT Pre Anesthesia [address] [place] [address] 1, [facility] [address] [place] [address] DOS 07/30 Pre Anesthesia Comment on above: DOS 07/30 Start: 04-14-2024 End: 04-14-2024 Patient encounter procedure 04/14/2024 8:30 AM EST Office Visit Pain Management [address] [place] [address] [place] [address] [place] [address] Chronic bilateral low back pain with left-sided sciatica [M54.42, G89.29] Pain Management Comment on above: Chronic bilateral low back pain with lef t-sided sciatica [M54.42, G89.29] Start: 03-31-2024 End: 03-31-2024 Patient encounter procedure 03/31/2024 7:30 AM EST Appointment Radiology [address] [place] [address] Spinal stenosis of lumbar region without neurogenic claudication [M48.061] Radiology Comment on above: Spinal stenosis of lumbar region without neurogenic claudication [M48.061] Start: 03-25-2024 End: 03-25-2024 Patient encounter procedure 03/25/2024 10:00 AM EST Office Visit Neurology [address] [place] [address] Obstructive sleep apnea [G47.33] Neurology Comment on above: Obstructive sleep apnea [G47.33] Start: 03-18-2024 End: 03-18-2024 Patient encounter procedure 03/18/2024 10:00 AM EST Office Visit Neurology [address] [place] [address] Hemalatha Anthony PA-C [address] [place] [address] 6 month follow up Neurology Comment on above: 6 month follow up Start: 02-18-2024 End: 02-18-2024 Patient encounter procedure 02/18/2024 1:00 PM EST Office Visit General Surgery [address] [place] [address] Ariel Guo MD [address] [address] esophageal manometry & a PH IONSERT OFF [...] procedure 01/30/2024 9:45 AM EDT Office Visit [facility] GENERAL SURGERY DEPARTMENT 1 [facility] 3rd Floor [place], [place] [id number] Sidney Boone MD [address] [facility] [address] [place] [id number] HBC-referral from Dr. Guo for EGD/Smalls/mano--testing scheduled 02/06/24 [facility] Comment on above: HBC-referral from Dr. Guo for EGD/Br shilpa/mano--testing scheduled 02/06/24 Start: 12-16-2023 Covid-19 Vaccine ( season) Covid-19 Vaccine () [facility] Start: 12-16-2023 Covid-19 Vaccine () Covid-19 Vaccine () [facility] Start: 12-16-2023 Influenza vaccination [facility] Start: 12-03-2023 End: 12-03-2023 Patient encounter procedure 12/03/2023 9:30 AM EDT Office Visit Allergy [address] [address] Mario Ansari MD [address] [place] [address] 3 month follow up Allergy Comment on above: 3 month follow up Start: 11-16-2023 End: 11-16-2023 Patient encounter procedure 11/16/2023 3:45 PM EDT Appointment [facility] [address] [place] [address] Ariel Guo MD [address] [place] [address] egd [facility] Endoscopy Comment on above: egd Start: 09-19-2023 End: 09-19-2023 ambulatory 09/19/2023 10:45 AM EDT OT/PT/Speech Visit [facility] Physical Therapy [address] [place] [address] Primitivo Kelly, PT [address] [place] [address] Sciatica of left side [M54.32] [facility] Physical Therapy Comment on above: Sciatica of left side [M54.32] Start: 09-05-2023 End: 12-05-2023 KARINA BY IFA WITH REFLEX [facility] Work Phone: Comment on above: Expected: 09/05/2023, Expires: Start: 09-05-2023 End: 09-05-2023 Patient encounter procedure 09/05/2023 10:30 AM EDT Office Visit Neurology [address] [place] [address] Hemalatha Anthony PA-C [address] [place], [place] [id number] 3 mo Follow up Neurology Comment on above: 3 mo Follow up Start: 04-16-2023 Behavioral Health Screening Behavioral Health Screening [facility] Start: 04-16-2023 Depression Assessment Depression Assessment [facility] Start: 12-15-2022 Covid-19 Vaccine ( season) Covid-19 Vaccine () [facility] Start: 12-15-2022 Influenza vaccination [facility] Start: 11-14-2022 [facility] Start: 2022 PAP TESTING PAP TESTING [facility] Start: 2022 Screening for malignant neoplasm of cervix [facility] Start: 04-16-2022 DEPRESSION ASSESSMENT DEPRESSION ASSESSMENT [facility] Start: 12-15-2021 Influenza vaccination [facility]ZA (Season Ended) [facility] Start: 02-21-2021 COVID-19 VACCINE (3 - Booster for Pfizer series) COVID-19 VACCINE (3 - Booster for Pfizer series) [facility] Start: 11-16-2020 COVID-19 VACCINE (3 - Booster for Pfizer series) COVID-19 VACCINE (3 - Booster for Pfizer series) [facility] Start: 11-16-2020 COVID-19 VACCINE (3 - Pfizer series) COVID-19 VACCINE (3 - Pfizer series) [facility] Start: 10-04-2019 Anxiety Screening Anxiety Screening [facility] Start: 10-04-2019 CHLAMYDIA SCREENING (18-) CHLAMYDIA SCREENING (18-) [facility] Start: 10-04-2019 Depression Screening Depression Screening [facility] Start: 10-04-2019 GC (GONORRHEA) SCREENING (18-24) GC (GONORRHEA) SCREENING (18-) [facility] Start: 10-04-2019 HEPATITIS C SCREENING HEPATITIS C SCREENING [facility] Start: 10-04-2019 Hepatitis C screening Hepatitis C Screening [facility] Start: 10-04-2019 HIV SCREENING HIV SCREENING [facility] Start: 10-04-2019 HIV screening HIV Screening [facility] Start: 10-04-2019 Screening for Chlamydia trachomatis Chlamydia Screening (18) [facility] Start: 2017 Meningococcal B Vaccine (1 of 2 - Standard) Meningococcal B Vaccine (1 of 2 - Standard) [facility] Start: 2017 Meningococcal B Vaccine: Consider Based On Risk (1 of 2 - Patient Seeks Protection) Meningococcal B Vaccine: Consider Based On Risk (1 of 2 - Patient Seeks Protection) [facility] Start: 2017 MENINGOCOCCAL B: Consider based on risk (1 of 2 - Patient Seeks Protection) MENINGOCOCCAL B: Consider based on risk (1 of 2 - Patient Seeks Protection) [facility] Start: 2016 HPV Vaccine (1 - 3-dose series) HPV Vaccine (1 - 3-dose series) [facility] Start: 10-04-2015 PEDS TO ADULT TRANSITION ANNUAL ASSESSMENT PEDS TO ADULT TRANSITION ANNUAL ASSESSMENT [facility] Start: 2013 Adult depression screening assessment DEPRESSION SCREENING [facility] Start: 2013 PEDS TO ADULT TRANSITION INITIAL DISCUSSION PEDS TO ADULT TRANSITION INITIAL DISCUSSION [facility] Start: 2012 HPV VACCINE (1 - 2-dose series) HPV VACCINE (1 - 2-dose series) [facility] Start: 2012 Urine microalbumin profile [facility] Start: 10-04-2011 MENINGOCOCCAL B: Consider based on risk (1 of 2 - Risk Bexsero 2-dose series) MENINGOCOCCAL B: Consider based on risk (1 of 2 - Risk Bexsero 2-dose series) [facility] Start: 2010 HPV VACCINE (1 - 2-dose series) HPV VACCINE (1 - 2-dose series) [facility] Start: 10-04-2007 PNEUMOCOCCAL (1 - PCV) PNEUMOCOCCAL (1 - PCV) [facility] Alternaria alternata IgE Ab [Units/volume] in Serum [facility] Ecuadorean Cockroach I gE Ab [Units/volume] in Serum [facility] Ecuadorean house dust mite IgE Ab [Units/volume] in Serum [facility] Aspergillus fumigatu s RAST [facility] Bacteria identified in Wound by Culture BACTERIAL CULTURE AND GRAM STAIN, ABSCESS AND WOUND (AEROBIC CULTURE) Microbiology Routine Incisional infection Ordered: 09/17/2024 [facility] Work Phone: Comment on above: Ordered: 09/17/2024 Bahia grass IgE Ab [Units/volume] in Serum [facility] Bermuda grass IgE Ab [Units/volume] in Serum [facility] Box elder [facility] Cardiovascular funct ion eval w/tilt table w/mntr TILT TABLE EVALUATION Cardiology Routine Orthostatic hypotension Ordered: 10/04/2022 [facility] Work Phone: Comment on above: Ordered: 10/04/2022 Cat dander IgE Ab [Units/volume] in Serum [facility] Cladosporium herbaru m IgE Ab [Units/volume] in Serum [facility] Common Ragweed IgE A b [Units/volume] in Serum [facility] COVID & INFLUENZA A/ B & RSV PCR, ROUTINE COVID & INFLUENZA A/B & RSV PCR, ROUTINE Microbiology Routine URI, acute 02/12/2024 11:47 AM EDT [facility] Work Phone: Dog epithelium IgE A b [Units/volume] in Serum [facility] End: 09-20-2024 EGD DIAGNOSTIC EGD DIAGNOSTIC Endoscopy Routine Gastroesophageal reflux disease, unspecified whether esophagitis present 1 Occurrences starting 09/21/2023 until 09/20/2024 [facility] Work Phone: Comment on above: 1 Occurrences starting 09/21/2023 until 09/20/2024 Egd transoral biopsy single/multiple EGD WITH BIOPSY Gastroesophageal reflux disease, unspecified whether esophagitis present [facility] Esophageal motility study w/interp&rpt ESOPHAGEAL MANOMETRY Gastroesophageal reflux disease, unspecified whether esophagitis present [facility] house dust mite IgE Ab [Units/volume] in Serum [facility] Gastroesophag reflx test w/telemtry ph eltrd ESOPHAGEAL ACID REFLUX TEST W/MUCOSAL ATTACHED TELEMETRY PH ELECTRODE PLACEMENT RECORDING, ANALYSIS, & INTERPRETATION [] Gastroesophageal reflux disease, unspecified whether esophagitis present [facility] H&P for surgery H&P FOR SURGERY Procedures Routine Gastroesophageal reflux disease, unspecified whether esophagitis present Ordered: 01/08/2024 [facility] Work Phone: Comment on above: Ordered: 01/08/2024 Hazelnut Pollen IgE Ab [Units/volume] in Serum [facility] End: 03-18-2025 HOME SLEEP APNEA TEST (HSAT) HOME SLEEP APNEA TEST (HSAT) Procedures Routine Obstructive sleep apnea 1 Occurrences starting 03/18/2024 until 03/18/2025 [facility] Work Phone: Comment on above: 1 Occurrences starting 03/18/2024 until 03/18/2025 Albert grass IgE Ab [Units/volume] in Serum [facility] Kentucky blue grass IgE Ab [Units/volume] in Serum [facility] End: 12-30-2024 Manometry Study observation Narrative MANOMETRY ESOPHAGEAL Endoscopy Routine Gastroesophageal reflux disease, unspecified whether esophagitis present 1 Occurrences starting 12/31/2023 until 12/30/2024 [facility] Work Phone: Comment on above: 1 Occurrences starting 12/31/2023 until 12/30/2024 Manometry Study observation Narrative MANOMETRY ESOPHAGEAL FUNCTION W/IMPEDANCE Endoscopy Routine Gastroesophageal reflux disease, unspecified whether esophagitis present Ordered: 01/30/2024 [facility] Work Phone: Comment on above: Ordered: 01/30/2024 Mountain Juniper IgE Ab [Units/volume] in Serum [facility] End: 04-17-2025 MR Lumbar spine WO contrast MRI LUMBAR SPINE WO IVCON Radiology Routine Spinal stenosis of lumbar region without neurogenic claudication 1 Occurrences starting 03/18/2024 until 04/17/2025 [facility] Comment on above: 1 Occurrences starting 03/18/2024 until 04/17/2025 Mucor racemosus IgE Ab [Units/volume] in Serum [facility] Mugwort IgE Ab [Units/volume] in Serum [facility] Townsend RAST [facility] Nettle IgE Ab [Units/volume] in Serum [facility] Patient Education [facility] Work Phone: Patient referral [facility] Work Phone: Penicillium notatum IgE Ab [Units/volume] in Serum [facility] End: 12-30-2024 PH INSERT OFF MEDS PH INSERT OFF MEDS Endoscopy Routine Gastroesophageal reflux disease, unspecified whether esophagitis present 1 Occurrences starting 12/31/2023 until 12/30/2024 [facility] Comment on above: 1 Occurrences starting 12/31/2023 until 12/30/2024 Plantain (Ivorian) RAST [facility] Rough Pigweed IgE Ab [Units/volume] in Serum [facility] Sheep Barber IgE Ab [Units/volume] in Serum [facility] Stemphylium botryosu m IgE Ab [Units/volume] in Serum [facility] SURGICAL PATHOLOGY [facility] Work Phone: Comment on above: Release Upon Ordering for 1 Occurrences starting 11/16/2023, 1 completed SURGICAL PATHOLOGY SURGICAL PATH OLOGY Lab Routine Gastroesophageal reflux disease, unspecified whether esophagitis present Release Upon Ordering for 1 Occurrences starting 02/06/2024 [facility] Work Phone: Comment on above: Release Upon Ordering for 1 Occurrences starting 02/06/2024 Sweet gum RAST [facility] Tilt table test [facility] Tree pollen RAST [facility] White Elm IgE Ab [Units/volume] in Serum [facility] White Walthall IgE Ab [Units/volume] in Serum [facility] Vinton IgE Ab [Units/volume] in Serum [facility] Immunizations Immunization Date Immunization Notes Care Provider Saritha montgomery 01-19-2022 influenza virus vaccine, unspecified formulation Hemalatha Anthony PA-C Work Phone: [facility] 10-11-2007 measles, mumps and rubella virus vaccine Krysten Giraldo APRN.GEAR DESIGN ENGINEER Work Phone: [facility] Work Phone: 10-11-2007 varicella virus vaccine Vanessa Giraldo APRN.GEAR DESIGN ENGINEER Work Phone: [facility] Work Phone: 05-10-2006 DTaP-hepatitis B and poliovirus vaccine Krysten Giraldo APRN.GEAR DESIGN ENGINEER Work Phone: [facility] Work Phone: 05-10-2006 pneumococcal conjuga te vaccine, 7 valent Krysten Giraldo APRN.GEAR DESIGN ENGINEER Work Phone: [facility] Work Phone: 05-10-2006 varicella virus vaccine Vanessa Giraldo APRN.GEAR DESIGN ENGINEER Work Phone: [facility] Work Phone: 03-27-2005 diphtheria, tetanus toxoids and acellular pertussis vaccine Krysten Giraldo APRN.[facility] Work Phone: [facility] Work Phone: 03-27-2005 haemophilus influenz ae type b vaccine, HbOC conjugate Krysten Giraldo APRN.[facility] Work Phone: [facility] Work Phone: 03-27-2005 measles, mumps and rubella virus vaccine Krysten Giraldo APRN.GEAR DESIGN ENGINEER Work Phone: [facility] Work Phone: 03-27-2005 pneumococcal conjuga te vaccine, 7 valent Krysten Giraldo APRN.GEAR DESIGN ENGINEER Work Phone: [facility] Work Phone: 02-22-2002 haemophilus influenz ae type b vaccine, HbOC conjugate Krysten Giraldo APRN.GEAR DESIGN ENGINEER Work Phone: [facility] 02-07-2002 diphtheria, tetanus toxoids and acellular pertussis vaccine Krysten Giraldo APRN.GEAR DESIGN ENGINEER Work Phone: [facility] 02-07-2002 pneumococcal conjuga te vaccine, 7 valent Krysten Giraldo APRN.GEAR DESIGN ENGINEER Work Phone: [facility] 02-07-2002 poliovirus vaccine, inactivated Krysten Giraldo APRN.GEAR DESIGN ENGINEER Work Phone: [facility] 2001 diphtheria, tetanus toxoids and acellular pertussis vaccine Krysten Giraldo APRN.GEAR DESIGN ENGINEER Work Phone: [facility] 2001 haemophilus influenz ae type b vaccine, HbOC conjugate Krysten Enzo SHINN.GEAR DESIGN ENGINEER Work Phone: [facility] 2001 hepatitis B vaccine, pediatric or pediatric/adolescent dosage Krysten Enzo SHINN.GEAR DESIGN ENGINEER Work Phone: [facility] 2001 poliovirus vaccine, inactivated Krysten Giraldo APRN.GEAR DESIGN ENGINEER Work Phone: [facility] 2001 hepatitis B vaccine, pediatric or pediatric/adolescent dosage Krysten Giraldo RECYCLING OPERATIONS MANAGER.GEAR DESIGN ENGINEER Work Phone: [facility] Payers Date Payer Category Payer Unknown [id number] 2023 Self-pay 2023 Unknown [facility]URED [id number] 2023-Present [phone] [address] [place] [address] PPO [id number] 2023 Unknown [id number] 2022 Medicaid [employer] [employer] [id number] 2022-Present [phone] [address] [place] [address] Medicaid [id number] 2018 Private Health Insurance [facility] [employer] [id number] 2018-Present [phone] [address] [address] [place] [address] HMO [id number] 2018 Private Health Insurance [id number]. [id number] 2018 Unknown [id number] Medicaid MEDICAID [id number] Unknown [facility] [id number] Unknown [id number] 2.16.840.1.574397.3.579.2. 462 Unknown [id number] 2.16.840.1.523750.3.579.2. 462 Unknown [id number] 2.16.840.1.772743.3.579.2. 462 Unknown [id number] 2.16.840.1.748353.3.579.2. 462 Unknown [id number] 2.16.840.1.511282.3.579.2. 462 Unknown [id number] 2.16.840.1.245189.3.579.2. 462 Unknown [id number] 2.16.840.1.269089.3.579.2. 462 Unknown [id number] 2.16.840.1.050063.3.579.2. 462 Unknown [id number] 2.16.840.1.743014.3.579.2. 462 Unknown [id number] 2.16.840.1.848690.3.579.2. 462 Unknown [id number] 2.16.840.1.373497.3.579.2. 462 Unknown [id number] 2.16.840.1.490275.3.579.2. 462 Unknown [id number] 2.16.840.1.794269.3.579.2. 462 Unknown [id number] 2.16.840.1.065382.3.579.2. 462 Unknown [id number] 2.16.840.1.442908.3.579.2. 462 Unknown [id number] 2.16.840.1.483446.3.579.2. 462 Unknown [id number] 2.16.840.1.732837.3.579.2. 462 Unknown [id number] 2.16.840.1.346495.3.579.2. 462 Unknown [id number] 2.16.840.1.676165.3.579.2. 462 Unknown [id number] 2.16.840.1.878971.3.579.2. 462 Unknown [id number] 2.16.840.1.552191.3.579.2. 462 Unknown [id number] 2.16.840.1.386441.3.579.2. 462 Unknown [id number] 2.16.840.1.074195.3.579.2. 462 Unknown [id number] 2.16.840.1.364532.3.579.2. 462 Unknown [id number] 2.16.840.1.079653.3.579.2. 462 Unknown [id number] 2.16.840.1.318099.3.579.2. 462 Unknown [id number] 2.16.840.1.819082.3.579.2. 462 Unknown [id number] 2.16.840.1.098669.3.579.2. 462 Unknown [id number] 2.16840.1.566921.3.579.2. 462 Unknown [id number] 2.16.840.1.887195.3.579.2. 462 Unknown [id number] 2.16.840.1.819686.3.579.2. 462 Unknown [id number] 2.16.840.1.559360.3.579.2. 462 Unknown [id number] 2.16.840.1.932928.3.579.2. 462 Unknown [id number] 2.16.840.1.357116.3.579.2. 462 Unknown [id number] 2.16.840.1.027984.3.579.2. 462 Unknown [id number] 2.16.840.1.196248.3.579.2. 462 Unknown [id number] 2.16.840.1.604957.3.579.2. 462 Unknown [id number] 2.16.840.1.078501.3.579.2. 462 Unknown [id number] 2.16.840.1.391076.3.579.2. 462 Unknown [id number] 2.16.840.1.577093.3.579.2. 462 Unknown [id number] 2.16.840.1.859308.3.579.2. 462 Unknown [id number] 2.16.840.1.040156.3.579.2. 462 Unknown [id number] 2.16.840.1.596206.3.579.2. 462 Unknown [id number] 2.16.840.1.278392.3.579.2. 462 Unknown [id number] 2.16.840.1.293757.3.579.2. 462 Social History Date Type Detail Facility Tobacco smoking status IAIS Smokes tobacco daily [facility] Work Phone: Start: 06-29-2009 End: 01-30-2024 Alcohol intake Not Asked [facility] Start: 2001 Sex Assigned At Not on file [facility] Start: 07-24-2021 End: 08-03-2021 Exposure to SARS-CoV-2 (event) Not sure [facility] Work Phone: Start: 05-11-2022 End: 05-24-2023 Tobacco smoking status IAIS Unknown if ever smoked [facility] Start: 2001 Sex Assigned At Female [facility] Start: 10-04-2022 Tobacco smoking status IAIS Ex-smoker [facility] History of tobacco use Current smoker [facility] History of tobacco use Cigarette Smoker [facility] Start: 10-04-2022 End: 09-21-2023 Tobacco use and exposure Smokeless tobacco non-user [facility] Start: 10-04-2022 End: 02-18-2024 History of Social function [facility] Start: 10-04-2022 End: 02-18-2024 Tobacco use panel [facility] National Score (1-100), lower number is lower risk 99 [facility] Start: 09-21-2023 Tobacco smoking status NHIS Never smoked tobacco [facility] Start: 02-06-2024 End: 10-22-2024 Alcoholic beverage intake Ex-drinker (finding) [facility] NEGATED: Highlighted row [facility] Mental Status Date Assessment Result Facility 11-14-2022 Cognitive function Level Of Cons ciousness Awake;Alert;Appropriate [facility] Work Phone: 10-21-2022 Cognitive function Level Of Cons ciousness Awake;Alert;Appropriate;Follow s Commands [facility] Work Phone: 09-05-2022 Cognitive function Level Of Cons ciousness Awake;Alert;Appropriate;Follow s Commands [facility] Work Phone: Clinical Notes 08-03-2021 to 10-23-2024 Phillip Ferreira MD - 10/23/2024 8:28 PM Phillip Grimm MD - 10/09/2024 6:52 AM EDTTelephone Encounter - Rose Decker OCCA - 09/25/2024 10:55 AM EDTPatient Instructions Note Date & Type Note Facility 10-23-2024 History of Present illness Narrative [id number] DATE OF SERVICE: October 22, 2024 : 2000 REFERRING PHYSICIAN: Neela Lino MD, MD Ace is a patient with a complaint of umbilical discomfort following cholecystectomy. Dr. Guo performed a laparoscopic cholecystectomy on July 30, 2024. Patient has a BMI of 40. She was found to have an umbilical infection and umbilical pain. The patient was noted to have yellow purulent malodorous material draining from her umbilical incision on September 17 and follow-up appointment with Monse Chapin. She was given Bactrim which she said upset her stomach. She still noted some redness even yesterday. She denies drainage currently. I had seen her 2 weeks previously and the umbilicus was still slightly erythematous. There was a question of a small collection near the incision 1 cm deep. I asked her to return in a few weeks to see if that collection had resolved and if she was still in pain to consider injection of local steroid if there is pain or aspiration if there is still fluid collection. She notes no further erythema at the site she has noted no drainage VITALS: Blood pressure 120/78, pulse 106, temperature 36.9 C (98.4 F), temperature source Temporal, resp. rate 12, height 157.5 cm (5' 2), weight 104.3 kg (230 lb), SpO2 97%. On examination, she is tender at the umbilicus there is no erythema or signs of infection. Intraoffice ultrasound was obtained. There is a no significant collection just below the incision approximately 1 cm deep. This is distant from her fascia. PROCEDURE: INJECTION OF LOCAL/STEROID The risks, benefits and anticipated outcomes of the procedure, the risks and benefits of the alternatives to the procedure, and the roles and tasks of the personnel to be involved, were discussed with the patient, and the patient consents to the procedure and agrees to proceed. After consent was obtained and the site, person, and procedure verified, the patient`s skin was prepped and draped in the usual fashion. A combination of Lidocaine and Marcaine along with 10mg of Kenalog was injected into the skin. Ultrasound was used to demonstrate the appropriate layer for planned injection just above and below the fascial plane. The local anesthetic/steroid mixture was then injected at the planned location at the appropriate depth. This gave significant pain relief. The patient tolerated the procedure well. Assessment IMPRESSION: Postoperative umbilical pain, resolving umbilical port site infection, relief with local steroid injection at fascial plane PLAN: If the patient received significant improvement in her symptoms but notes not complete resolution I recommend she return in 1 month for additional injection Diagnoses: (L76.82) Incisional pain (primary encounter diagnosis) Return to Clinic: The patient is instructed to follow-up with me in 1 month if needed. Phillip Ferreira MD documented in this encounter [facility] 10-09-2024 Note HNO ID: [id number] Author: PHILLIP FERREIRA MD Service: ? Author Type: Physician Type: Progress Notes Filed: 10/09/2024 06:57 Note Text: FO[facility] NO.: [id number] DATE OF SERVICE: 10/08/2024 : 2000 REFERRING PHYSICIAN: Neela Lino MD, MD Ace is a patient with a complaint of umbilical discomfort following cholecystectomy. Dr. Guo performed a laparoscopic cholecystectomy on July 30, 2024. Patient has a BMI of 40. She was found to have an umbilical infection and umbilical pain. The patient was noted to have yellow purulent malodorous material draining from her umbilical incision on September 17 and follow-up appointment with Monse Chapin. She was given Bactrim which she said upset her stomach. She still noted some redness even yesterday. She denies drainage currently. VITALS: There were no vitals taken for this visit. On examination, she is tender at the umbilicus there is no obvious drainage currently. There is minimal erythema. Intraoffice ultrasound was obtained. There is a small collection just below the incision approximately 1 cm deep. This is distant from her fascia. Assessment IMPRESSION: Postoperative umbilical pain, resolving umbilical port site infection PLAN: I discussed with the patient that in general, neuralgia is caused by sutures or scarring at the level of the fascia and her process seems to be an infectious process more superficially located. I prescribed clindamycin which hopefully she will tolerate better. I discussed with her that I do not believe injection is indicated since she has had flexion recently and would not recommend placing steroids in that area. Will plan to have her return in a few weeks and repeat ultrasound and consider aspiration versus injection at that time Diagnoses: No diagnosis found. Return to Clinic: The patient is instructed to follow-up with me in 2 weeks. Phillip Ferreira MD [facility] 10-09-2024 History of Present illness Narrative FOLLOW UP VISIT [facility] NO.: [id number] DATE OF SERVICE: 10/08/2024 : 2000 REFERRING PHYSICIAN: Neela Lino MD, MD Ace is a patient with a complaint of umbilical discomfort following cholecystectomy. Dr. Guo performed a laparoscopic cholecystectomy on July 30, 2024. Patient has a BMI of 40. She was found to have an umbilical infection and umbilical pain. The patient was noted to have yellow purulent malodorous material draining from her umbilical incision on September 17 and follow-up appointment with Monse Chapin. She was given Bactrim which she said upset her stomach. She still noted some redness even yesterday. She denies drainage currently. VITALS: There were no vitals taken for this visit. On examination, she is tender at the umbilicus there is no obvious drainage currently. There is minimal erythema. Intraoffice ultrasound was obtained. There is a small collection just below the incision approximately 1 cm deep. This is distant from her fascia. Assessment IMPRESSION: Postoperative umbilical pain, resolving umbilical port site infection PLAN: I discussed with the patient that in general, neuralgia is caused by sutures or scarring at the level of the fascia and her process seems to be an infectious process more superficially located. I prescribed clindamycin which hopefully she will tolerate better. I discussed with her that I do not believe injection is indicated since she has had flexion recently and would not recommend placing steroids in that area. Will plan to have her return in a few weeks and repeat ultrasound and consider aspiration versus injection at that time Diagnoses: No diagnosis found. Return to Clinic: The patient is instructed to follow-up with me in 2 weeks. Phillip Ferreira MD documented in this encounter [facility] 09-25-2024 Telephone encounter Note Prescription Refill Information The patient has been identified by name and date of : Yes Caregiver verified no other encounters exist for this prescription request: Yes Caregiver confirmed with patient/requestor that no other refills are due, in the near future, with this provider at this time: Yes The last office visit in the department: 03/18/2024 with Alma Anthony Continue with metoprolol 50 mg for heart rate Drink plenty of fluids throughout the day, stay active Referral to pain management for back pain and will get and MRI to see if there is any degeneration Home sleep study to look for sleep apnea Follow up in 6 months Does the patient have a future office visit with this provider/department: Yes, 12/24/2024 with Alma Anthony Requested Prescriptions Pending Prescriptions Disp Refills cetirizine (ZYRTEC) 10 mg tablet [Pharmacy Med Name: Cetirizine HCl Oral Tablet 10 MG] 30 tablet 0 Sig: TAKE 1 TABLET BY MOUTH EVERY DAY RACIEL Su September 25, 2024 10:55 AM [facility] 09-25-2024 Miscellaneous Notes Prescription Refill Information The patient has been identified by name and date of : Yes Caregiver verified no other encounters exist for this prescription request: Yes Caregiver confirmed with patient/requestor that no other refills are due, in the near future, with this provider at this time: Yes The last office visit in the department: 03/18/2024 with Alma Anthony Continue with metoprolol 50 mg for heart rate Drink plenty of fluids throughout the day, stay active Referral to pain management for back pain and will get and MRI to see if there is any degeneration Home sleep study to look for sleep apnea Follow up in 6 months Does the patient have a future office visit with this provider/department: Yes, 12/24/2024 with Alma Anthony Requested Prescriptions Pending Prescriptions Disp Refills cetirizine (ZYRTEC) 10 mg tablet [Pharmacy Med Name: Cetirizine HCl Oral Tablet 10 MG] 30 tablet 0 Sig: TAKE 1 TABLET BY MOUTH EVERY DAY RACIEL Su September 25, 2024 10:55 AM documented in this encounter [facility] 09-17-2024 Note HNO ID: [id number] Author: MONSE CHAPIN APRN.GEAR DESIGN ENGINEER Service: ? Author Type: Nurse Practitioner Type: Progress Notes Filed: 09/17/2024 14:25 Note Text: This note was created using FindThatCourseriter. Recording using Open Mile software for draft documentation of the visit was discussed with the patient/authorized hardware supplies sales representative; all questions welcomed and answered. Patient/authorized hardware supplies sales representative agreed to proceed Subjective Ace is a 23-year-old female presenting for evaluation of an irritated incision. Incision Irritation: - Noticed irritation and pruritus around the incision site. - Observed yellow purulent discharge with malodor starting yesterday. - Persistent pain at the incision site. - Awaiting a call to schedule an appointment with Dr. Alamo for nerve injection at umbilical incision Constipation and Diarrhea: - Experiencing alternating constipation and diarrhea. - Following dietary recommendations and taking fiber capsules before meals as advised by primary care provider. Review of Systems Constitutional: (- fever) Gastrointestinal: (+ constipation), (+ diarrhea) Skin: (+ incisional pain), (+ incisional purulent drainage), (+ malodorous incisional drainage), (+ incisional pruritus) Objective BP 133/83 Pulse 87 Temp 36.9 ?C (98.4 ?F) (Oral) Resp 14 Wt 101.6 kg (224 lb) LMP (LMP Unknown) SpO2 98% BMI 40.97 kg/m? Physical Exam General: No fever. Skin: Mild erythema in the umbilicus not the incision, very minimal discharge observed, no swelling, no surrounding erythema or surrounding pain. Assessment and Plan ASSESSMENT/PLAN: 1. Incisional infection - ICD9: 998.59, ICD10: T81.49XA - BACTERIAL CULTURE AND GRAM STAIN, ABSCESS AND WOUND (AEROBIC CULTURE) - SULFAMETHOXAZOLE 800 MG-TRIMETHOPRIM 160 MG TABLET Monse Chapin APRN.GEAR DESIGN ENGINEER [facility] 09-17-2024 History of Present illness Narrative This note was created using [employer]ThatCours[employer]. Recording using Open Mile software for draft documentation of the visit was discussed with the patient/authorized hardware supplies sales representative; all questions welcomed and answered. Patient/authorized hardware supplies sales representative agreed to proceed Subjective Ace is a 23-year-old female presenting for evaluation of an irritated incision. Incision Irritation: - Noticed irritation and pruritus around the incision site. - Observed yellow purulent discharge with malodor starting yesterday. - Persistent pain at the incision site. - Awaiting a call to schedule an appointment with Dr. Alamo for nerve injection at umbilical incision Constipation and Diarrhea: - Experiencing alternating constipation and diarrhea. - Following dietary recommendations and taking fiber capsules before meals as advised by primary care provider. Review of Systems Constitutional: (- fever) Gastrointestinal: (+ constipation), (+ diarrhea) Skin: (+ incisional pain), (+ incisional purulent drainage), (+ malodorous incisional drainage), (+ incisional pruritus) Objective BP 133/83 Pulse 87 Temp 36.9 C (98.4 F) (Oral) Resp 14 Wt 101.6 kg (224 lb) LMP (LMP Unknown) SpO2 98% BMI 40.97 kg/m Physical Exam General: No fever. Skin: Mild erythema in the umbilicus not the incision, very minimal discharge observed, no swelling, no surrounding erythema or surrounding pain. Assessment and Plan ASSESSMENT/PLAN: 1. Incisional infection - ICD9: 998.59, ICD10: T81.49XA - BACTERIAL CULTURE AND GRAM STAIN, ABSCESS AND WOUND (AEROBIC CULTURE) - SULFAMETHOXAZOLE 800 MG-TRIMETHOPRIM 160 MG TABLET Monse Chapin APRN.GEAR DESIGN ENGINEER documented in this encounter [facility] 09-04-2024 Note HNO ID: [id number] Author: AIMEE AKHTAR RDMS Service: ? Author Type: Financial Market Dealer Type: Progress Notes Filed: 09/04/2024 11:49 Note Text: Radiology Service Progress Note PATIENT NAME: Ace Leonardo DATE OF SERVICE: September 04, 2024 TIME: 11:49 AM PATIENT IDENTITY VERIFICATION COMPLETED USING TWO (2) IDENTIFIERS: Name and Date of confirmed by patient verbally. FALL SCREENING: Has the patient had 2 falls in the last year or 1 fall with injury or currently using an Ambulatory Assistive Device (Walker, Cane, Wheelchair, Crutches, etc.)? No PATIENT GENDER DATA: Assigned female at . status: : No status: NO. PATIENT RELEVANT IMPLANT DATA REVIEWED: Not Applicable PATIENT PRESENTS WITH AN IMPLANTABLE OR ATTACHED REMOTELY PILOTED VEHICLE CONTROLLER: No RADIOLOGY DEPARTMENT: Ultrasound PERIPHERAL IV DATA: Not applicable SIGNED BY: Aimee Akhtar RDMS September 04, 2024 11:49 AM [facility] 09-03-2024 Note HNO ID: [id number] Author: MONSE CHAPIN APRN.GEAR DESIGN ENGINEER Service: ? Author Type: Nurse Practitioner Type: Progress Notes Filed: 09/03/2024 09:57 Note Text: Ace is a patient I am following s/p lap genesis on 07/30/[address] Guo. I saw her post op on 08/08/24 and at that time she had the following complaints: Patient complaints: abdominal pain:soreness with position change -also c/o epigastric abdominal pain Diarrhea: intermittent dark urine: notes her GI DR wants her to see a kidney dr-unsure why -denies any burning or blood She presents today with complaints of : -umbilical incision pain -notes her whole abdomen was sore the last time we met, this has subsided and now she notices just the umbilical incision pain. -admits to returning to work at 2 weeks post op which requires frequent heavy lifting > 60 lbs -has been taking ibuprofen 600mg Q6-8h prn with pain relief. -tried ice with no relief -also note recent issues with constipation and diarrhea -notes eating high fiber diet including mostly green foods vs last OV when she was eating whatever she wanted -saw PCP regarding change AND abdominal series was ordered IMPRESSION: A moderate stool burden is noted. The bowel-gas pattern is otherwise unremarkable. No mass or mass effect is seen. -denies any urinary burning Physical Exam Vitals reviewed. Constitutional: General: She is not in acute distress. Appearance: Normal appearance. HENT: Head: Normocephalic. Abdominal: General: Abdomen is flat. There is no distension. Palpations: Abdomen is soft. There is no mass. Tenderness: There is abdominal tenderness. There is no guarding or rebound. Hernia: No hernia is present. Comments: +tenderness with VERY light palpation over the umbilical incision. +mild tenderness suprapubic no tenderness over the rest of the abdomen Musculoskeletal: Cervical back: Normal range of motion. Skin: General: Skin is warm and dry. Comments: Umbilical incision is completely healed. No evidence of infection. Neurological: Mental Status: She is alert and oriented to person, place, and time. Mental status is at baseline. Psychiatric: Mood and Affect: Mood normal. Behavior: Behavior normal. ASSESSMENT/PLAN: 1. Incisional pain - ICD9: 782.0, ICD10: L76.82 - Nerve pain vs fluid collection under incision vs abdominal muscle strain d/t returning to strenuous job causing the pain. Obtaining US to r/o hernia vs fluid collection. - Continue ibuprofen, Ice/heat for pain - Implemented lifting restrictions until US is back - Will check to see if there are any nerve injection options. - US [employer] Discussed treatment plan and patient voices understanding. Patient's questions answered appropriately. Return to the office as scheduled or as needed for worsening/no improvement. Monse Chapin APRN.GEAR DESIGN ENGINEER [facility] 08-12-2024 Telephone encounter Note Letter printed for return to work with restrictions and placed at front counter clerk for patient pickup. Phone call placed to patient informing of letter and restrictions. [facility] 08-12-2024 Miscellaneous Notes Letter printed for return to work with restrictions and placed at front counter clerk for patient pickup. Phone call placed to patient informing of letter and restrictions. Patient phones to request her return to work date be moved to this wed 08/13/2024. Patient reports intermittent dark urine today. Please advise. Brandie Nielson MA documented in this encounter [facility] 08-11-2024 Telephone encounter Note Patient phones to request her return to work date be moved to this wed 08/13/2024. Patient reports intermittent dark urine today. Please advise. Brandie Nielson MA [facility] 08-08-2024 Note HNO ID: [id number] Author: MONSE CHAPIN APRN.GIOVANNA Service: ? Author Type: Nurse Practitioner Type: Progress Notes Filed: 08/08/2024 10:02 Note Text: SUBJECTIVE: Ace Leonardo presents for follow up of her laparoscopic cholecystectomy on 07/30/2024. She tolerated the procedure well and was discharged home. Patient complaints: abdominal pain:soreness with position change -also c/o epigastric abdominal pain Diarrhea: intermittent dark urine: notes her GI DR wants her to see a kidney dr-unsure why -denies any burning or blood She denies incisional pain, nausea, vomiting, fever, chills, and jaundice She does note some epigastric abdominal pain. She follows with Dr. Jorgensen for GERD. Currently prescribed Voquezna AND carafate- not taking the carafate. Ace also notes that her umbilical incision keeps opening. Ace notes she is supposed to go on a cruise the first weekend of August and is requesting a letter so they can cancel their trip and get a refund. She denies food intolerance. -eating whatever she wants PHYSICAL EXAMINATION: Temp 36.7 ?C (98 ?F) (Temporal) LMP (LMP Unknown) General Appearance: Well developed, No acute distress Patient does not appear icteric. Abdomen: Abdomen soft, non-distended Incision: no drainage, no erythema, no swelling, mild ecchymosis, and no tenderness. Umbilical incision is completely approximated. I applied steri-strips for reinforcement. IMPRESSION: Post op course: Normal PLAN: Post-op patient instructions were reviewed with the patient. Low fat diet encouraged. If she is still having dark urine on Sunday let me know and I will order kidney function/UA. Stressed the importance of drinking at least 90 oz of water a day. I have explained to Ms. Ace Leonardo that she may return to normal activity with the following restrictions: no lifting, pushing, pulling > 20lbs until 08/27/24. She may return to work on 08/18/2024 with the listed restrictions. I have encouraged her to contact me at any time with any questions or concerns that may arise. Follow up: PRYeny Chapin APRN.GEAR DESIGN ENGINEER [facility] 08-05-2024 Note HNO ID: [id number] Author: ARIEL GUO MD Service: ? Author Type: Physician Type: Progress Notes Filed: 08/05/2024 13:36 Note Text: Subjective: Patient status post laparoscopic cholecystectomy on 07/30/2024. Ended up going to the emergency department secondary to having postoperative pain was given Toradol says her pain is improving. Pathology report came back chronic cholecystitis with cholesterolosis. She states she is tolerating a diet and moving her bowels. Objective:Blood pressure 127/87, pulse 101, temperature 36.8 ?C (98.2 ?F), temperature source Oral, resp. rate 14, weight 97.8 kg (215 lb 9.6 oz), SpO2 98%. Incisions healing up well. Umbilical incision no signs of cellulitis Assessment: Aftercare Plan: Anticipate her to make a complete recovery when she is done with the Toradol I want her to transition to ibuprofen. She is mitch be following up with Stephanie Chapin this Sunday. [facility] 08-05-2024 History of Present illness Narrative Subjective: Patient status post laparoscopic cholecystectomy on 07/30/2024. Ended up going to the emergency department secondary to having postoperative pain was given Toradol says her pain is improving. Pathology report came back chronic cholecystitis with cholesterolosis. She states she is tolerating a diet and moving her bowels. Objective:Blood pressure 127/87, pulse 101, temperature 36.8 C (98.2 F), temperature source Oral, resp. rate 14, weight 97.8 kg (215 lb 9.6 oz), SpO2 98%. Incisions healing up well. Umbilical incision no signs of cellulitis Assessment: Aftercare Plan: Anticipate her to make a complete recovery when she is done with the Toradol I want her to transition to ibuprofen. She is mitch be following up with Stephanie Chapin this Sunday. documented in this encounter [facility] 08-04-2024 Telephone encounter Note Post op appt made to see Dr Guo tomorrow due to purulent umbilical drainage . Encounter closed. [facility] 08-04-2024 Miscellaneous Notes Post op appt made to see Dr Guo tomorrow due to purulent umbilical drainage . Encounter closed. Patient called into office to provide update on her condition. Patient states that skin glue had fallen of umbilical incision on 08/01 or 08/02 and there was yellow pus draining for site yesterday 08/03/2024. Patient states that that she has placed waterproof bandage to incision. Patient states this incision is the only incision causing patient pain. Patient rates pain 4-5/10 on pain scale and states that she went to ED Late night 07/31/2024 early Sunday morning 08/01/2024 for uncontrolled pain. Patient states she was prescribed Toradol 10 mg every 6 hr as needed for pain. Please advise. Daisha Donovna LPN Patient called again asking for an update on message. Rox Ruiz RN Patient called back again reporting continued pain with minimal relief from Percocet. Patient encouraged to get up and walk. Educated patient on gas pains. Patient also informed that gasx may help. Patient informed that if her pain is increasing and if she is having concerns to go the ED for evaluation if needed. Rox Ruiz RN Patient called in s/p js starr on 07/30/2024. She reports pain 7/10. She gets some relief from percocet use for about 2 hours. Last dose today was at 0800. She is also taking naproxen without any relief. She would like to speak with nurse from the office. Please contact the patient back at [phone]. documented in this encounter [facility] 08-04-2024 Telephone encounter Note Patient called into office to provide update on her condition. Patient states that skin glue had fallen of umbilical incision on 08/01 or 08/02 and there was yellow pus draining for site yesterday 08/03/2024. Patient states that that she has placed waterproof bandage to incision. Patient states this incision is the only incision causing patient pain. Patient rates pain 4-5/10 on pain scale and states that she went to ED Late night 07/31/2024 early Sunday morning 08/01/2024 for uncontrolled pain. Patient states she was prescribed Toradol 10 mg every 6 hr as needed for pain. Please advise. Daisha Donovan LPN [facility] Work Phone: 07-31-2024 Telephone encounter Note Patient called again asking for an update on message. Rox Ruiz RN [facility] 07-31-2024 Telephone encounter Note Patient called back again reporting continued pain with minimal relief from Percocet. Patient encouraged to get up and walk. Educated patient on gas pains. Patient also informed that gasx may help. Patient informed that if her pain is increasing and if she is having concerns to go the ED for evaluation if needed. Rox Ruiz RN [facility] 07-31-2024 Telephone encounter Note Patient called in s/p lap genesis on 07/30/2024. She reports pain 7/10. She gets some relief from percocet use for about 2 hours. Last dose today was at 0800. She is also taking naproxen without any relief. She would like to speak with nurse from the office. Please contact the patient back at [phone]. [facility] 07-30-2024 Note HNO ID: [id number] Author: ?, ?, ? Service: Pharmacy Author Type: ? Type: Plan of Care Filed: 07/30/2024 13:42 Note Text: PHARMACY BEDSIDE DELIVERY SERVICE Patient Name: Ace Leonardo The marked outpatient medications were Filled at: [place] and delivered to the patient's bedside to pharm p/u Medication List START taking these medications oxyCODONE-acetaminophen 5-325 mg tablet Commonly known as: PERCOCET Take 1 tablet by mouth every 6 hours as needed for up to 5 days. X CONTINUE taking these medications B12 ACTIVE 1,000 mcg Chew Generic drug: mecobalamin (vitamin B12) cetirizine 10 mg tablet Commonly known as: ZyrTEC Take 1 tablet by mouth once daily. dicyclomine 20 mg tablet Commonly known as: BENTYL JAIMIESS ORAL ketotifen fumarate 0.025 % (0.035 %) ophthalmic solution Commonly known as: ZADITOR Use 1 Drop in both eyes two times a day as needed. metoprolol succinate ER 25 mg 24 hr tablet Commonly known as: TOPROL XL take 1 tablet by mouth every day ondansetron orally disintegrating 4 mg disintegrating tablet Commonly known as: ZOFRAN ODT QELBREE 200 mg capsule, extended release Generic drug: viloxazine sertraline 100 mg tablet Commonly known as: ZOLOFT sucralfate 1 gram tablet Commonly known as: CARAFATE traZODone 50 mg tablet Commonly known as: DESYREL vonoprazan 10 mg tablet Commonly known as: VOQUEZNA You might also be taking other medications not listed above. If you have questions about any of your other medications, talk to the person who prescribed them or your Primary Care Provider. Miranda Jim PAGER: [phone] July 30, 2024 1:41 PM [facility] 07-30-2024 Note HNO ID: [id number] Author: KANDRAC, JANES, RECYCLING OPERATIONS MANAGER.FUR PULLER Service: Anesthesiology Author Type: Nurse Supervisor Assembly Room Type: Anesthesia Procedure Notes Filed: 07/30/2024 10:34 Note Text: ANESTHESIOLOGY PROCEDURE NOTE Airway General Information Procedure Start Time/Medication Administration: 07/30/2024 10:20 AM Procedure End Time: 07/30/2024 10:20 AM Patient location during procedure: OR Timeout Performed Pre-procedure: timeout performed Consent Obtained: Yes Patient identity confirmed: care steam hand Staffing FUR PULLER: Janes Irizarry APRN.FUR PULLER Performed by: FUR PULLER Indications and Patient Condition Indications for airway management: anesthesia Preoxygenated: yes anesthesia circuit Patient position: sniffing Cricoid Pressure: No Difficult Mask: No Final Airway Details Final airway type: endotracheal airway Final Endotracheal Airway: ETT Cuffed: yes Successful intubation technique: direct laryngoscopy Devices used: intubating stylet Endotracheal tube insertion site: oral Blade: Nguyen Blade size: #3 ETT size (mm): 7.0 Measured from: lips Measurement (cm): 22 Placement verified by: chest auscultation and capnometry Cormack-Lehane Classification: grade I - full view of glottis Number of attempts at approach: 1 SIGNATURE: Janes Irizarry APRN.FUR PULLER PATIENT NAME: Ace Leonardo DATE: July 30, 2024 TIME: 10:33 AM CSN: [id number] [facility] 07-28-2024 Telephone encounter Note [facility] paperwork filled out, scanned in [email or web address], and placed at front counter clerk for pickup, Pt contacted by phone and verbalized understanding.Vera Nicholson RN [facility] 07-28-2024 Miscellaneous Notes [facility] paperwork filled out, scanned in [email or web address], and placed at front counter clerk for pickup, Pt contacted by phone and verbalized understanding.Vera Nicholson RN documented in this encounter [facility] 07-24-2024 Telephone encounter Note Call received from Pt - name & verified. Pt calls and reports that she has been vomiting and nauseous all day and cannot keep anything down. She is trying to avoid another trip to the ED. She has been taking Zofran, Sucralfate, and Bentyl as prescribed but reports it's not working to keep her symptoms at bay. She is not scheduled for surgery with Dr. Guo until 07/30/2024. Pt wonders if there might be another antiemetic Dr. Guo would be willing to send into her local pharmacy for her to try. Please review and advise. Pt prefers a phone call back. Ann Marie Agudelo RN July 24, 2024 3:33 PM [facility] 07-24-2024 Miscellaneous Notes Call received from Pt - name & verified. Pt calls and reports that she has been vomiting and nauseous all day and cannot keep anything down. She is trying to avoid another trip to the ED. She has been taking Zofran, Sucralfate, and Bentyl as prescribed but reports it's not working to keep her symptoms at bay. She is not scheduled for surgery with Dr. Guo until 07/30/2024. Pt wonders if there might be another antiemetic Dr. Guo would be willing to send into her local pharmacy for her to try. Please review and advise. Pt prefers a phone call back. Ann Marie Agudelo RN July 24, 2024 3:33 PM documented in this encounter [facility] 07-24-2024 Telephone encounter Note Call received from Pt - hawa & verified. Pt questioning if Dr. Guo had a chance to review her question re: open vs. lap genesis that she had called about yesterday. Reassured Pt that it had been forwarded to the surgeon, and we would be in touch with her upon his review and recommendations. She voices understanding. Ann Marie Agudelo RN July 24, 2024 3:28 PM [facility] 07-24-2024 Miscellaneous Notes Call received from Pt - name & verified. Pt questioning if Dr. Guo had a chance to review her question re: open vs. lap genesis that she had called about yesterday. Reassured Pt that it had been forwarded to the surgeon, and we would be in touch with her upon his review and recommendations. She voices understanding. Ann Marie Agudelo RN July 24, 2024 3:28 PM Patient calling in wondering if she is able to have the surgery open rather than laparoscopically as she has had a bad reaction being sick for a week with the last laparoscopic surgery she had. She is also wondering if she can have her FMLA paperwork filled out which she will drop off tomorrow and would like it back by Sunday. Deana Pineda LPN documented in this encounter [facility] 07-24-2024 History and physical note Images from the original note were not included. [facility] HISTORY AND PHYSICAL EXAMINATION SERVICE DATE: 07/24/2024 SERVICE TIME: 9:46 AM PRIMARY CARE PHYSICIAN: Neela Lino MD, MD Assessment Patient has the following medical conditions which may affect jack-operative course: Postural orthostatic tachycardia syndrome (POTS) Assessment: controlled on rx, following [facility] and [facility] neurology last OV 03/18/2024, last cardiac OV and cardiac testing requested MIRTA (obstructive sleep apnea) Assessment: non-compliant with CPAP Gastroesophageal reflux disease Assessment: controlled on rx BMI 39.0-39.9,adult Assessment: Body mass index is 39.32 kg/m . Thyroid nodule Assessment: PCP has under surveillance Anxiety and depression Assessment: stable on rx per pt, h/o SI, but denies repeatedly any current SI/SH/HI. Following with counselor VHD (valvular heart disease) Assessment: pt reports hx leaky valve, most recent cardiac records requested from [facility] ANESTHESIA FINDINGS: Intubation History: No history of difficult intubation Significant Anesthesia Considerations: potential postop nausea/vomiting Airway History: No history of difficult airway Ceja Activity Status Index: METS: Climb a flight of stairs or walk up a hill (5.50 METs) DASI Score: 5.5 Patient denies any chest pain or undue shortness of breath with the above physical activity. Clinical Frailty Scale: 3. Well, with treated comorbid disease STOP-Bang Score: Snores loudly Has been observed to stop breathing or choking/gasping during sleep BMI greater than 35 kg/m^2 Has a large neck Denies feeling tired, fatigued, or sleepy during the daytime Denies having high blood pressure Patient 50 years old or younger Non-male patient STOP-Bang Score: 4 [id number] Score: Age: <65 Sex: female CHF history: No Hypertension history: No Stroke/TIA/thromboembolism history: No Vascular disease history: No Diabetes history: No [id number] Score: 1 ARISCAT Score: Age: <=50 Preoperative SpO2: >=96% Respiratory infection in the last month: No Preoperative anemia: No Surgical incision: upper abdominal Duration of surgery: <2 hrs Emergency procedure: No ARISCAT Score: 15 I - PHYSICAL EVALUATION AIRWAY Patient intubated: No. Tracheostomy tube not present Mallampati: I. TM distance: >3 FB. Neck ROM: full ROM without neurological symptoms. Mouth opening: adequate. Short neck: no. Thick neck: yes Novoa present: no Lip Bite Test: I Microretrognathia/Micronagthia/Re cessed Chin: No DENTAL Dental findings: teeth intact. II - ANESTHESIA PLAN Anesthetic Plan: other Beta Reymundo Monitoring Plan Post Procedure Analgesic Plan Prepared for Surgery: optimally prepared for surgery, pending [see comment]. labs CONSULTS: Patient does not require consults for optimization at this time Planned Anesthetic: other anesthesia choice The Following Tests/Procedures Have Been Initiated: Orders Placed This Encounter >CBC + AUTO DIFF Standing Status: Future Number of Occurrences: 1 Expected Date: 07/24/2024 Expiration Date: 10/23/2024 >CMP Standing Status: Future Number of Occurrences: 1 Expected Date: 07/24/2024 Expiration Date: 10/23/2024 REASON FOR VISIT: Ace Leonardo is a 23 year old female who is scheduled for Procedure(s): LAPAROSCOPIC CHOLECYSTECTOMY POSSIBLE OPEN (N/A) at the request of Dr. Ariel Guo for consultation. My final recommendation will be communicated back to the requesting physician by way of shared medical record or letter. Subjective The patient has the following: COVID-19 Immunization Status Current Care Gaps Covid-19 Vaccine ( season) Overdue since 12/16/2023 09/21/2020 Imm Admin: COVID-19 original vaccine, age 12+ yr, monovalent (PFIZER-BIONTECH - PURPLE TOP) 08/31/2020 Imm Admin: COVID-19 original vaccine, age 12+ yr, monovalent (PFIZER-BIONTECH - PURPLE TOP) CHIEF COMPLAINT: Pre-op exam HPI: Ace Leonardo is a 23 year old seen for PAC due to scheduled above surgery because of biliary dyskinesia. 07/22/2024, Dr. Ariel Guo HPI: Ace is a 23 year old female with a complaint of right upper quadrant pain. The patient has had symptoms of right upper quadrant pain for few months. The symptoms have maintained, over the past few months. The pain does radiate to the back and shoulder. Food does aggravate her symptoms. Alleviating factors include: none. The patient was seen by the emergency room physician. Ace underwent an ultrasound and a HIDA scan. These tests demonstrated a decreased gall bladder ejection fraction. The patient is referred for evaluation and treatment. The patient is being seen by me today at the request of Dr. Neela Lino MD, MD for my opinion and advice regarding Biliary dyskinesia (primary encounter diagnosis) Ruq abdominal pain. REVIEW OF SYSTEMS: General: No weight loss, malaise or fevers. Neurological: No history of TIA's, stroke, BOX BUILDER tumor, impaired sensorium, hemiplegia, paraplegia or quadraplegia. No neurological symptoms or problems. Respiratory: Positive for: obstructive sleep apnea and CPAP/BiPAP noncompliant. Negative for: asthma, COPD, current cough, dyspnea, pneumonia within 6 weeks, tobacco use and URI < 2 weeks. Cardiovascular: POTS, on rx Positive for: arrhythmia and murmur/valvular heart disease Negative for: abdominal aortic aneurysm, AICD/PPM, angina, anticoagulation therapy, atrial fibrillation, CAD, chest pain, CHF, congenital heart defect, DVT/PE, hyperlipidemia, hypertension, recent PA, PTCA, PVD, open heart surgery and valve surgery. GI: See HPI. Positive for: dysphagia (dry solids) and GERD (on rx) Negative for: abdominal pain, esophageal stricture, hepatitis, irritable bowel syndrome, inflammatory bowel disease, liver disease, nausea, pancreatitis and vomiting. : No history of dysuria, frequency or incontinence, stones or chronic kidney disease. No difficulty urinating, nocturia > 1 time per night or hematuria. TALLOW PUMPER: Negative for abnormal vaginal bleeding, abnormal vaginal discharge. Endocrine: +thyroid nodule. No history of diabetes. Has not taken steroids within the past 30 days. No history of endocrinological symptoms or problems. Hematology: No history of bleeding or clotting disorder. Patient is not taking anti-coagulation or platelet medications. No history of hematological symptoms or problems. Oncology: No history of CA metastasis, chemo within 30 days, or radiotherapy within 90 days. No history of oncological symptoms or problems. Psych: Positive for: anxiety (on rx) and depression (on rx). Negative for: Marijuana Use. Musculoskeletal: Positive for: back pain. Skin: Negative for lesions, rash and itching. Implanted Devices: No implanted devices. PAST MEDICAL HISTORY Diagnosis Date Chronic bilateral low back pain with left-sided sciatica Class 3 severe obesity due to excess calories without serious comorbidity with body mass index (BMI) of 40.0 to 44.9 in adult ([facility]) Gastroesophageal reflux disease, unspecified whether esophagitis present GERD (gastroesophageal reflux disease) Morbid obesity with BMI of 40.0-44.9, adult ([facility]) Obstructive sleep apnea POTS (postural orthostatic tachycardia syndrome) Regurgitation of food Sciatica of left side Spinal stenosis of lumbar region without neurogenic claudication PAST SURGICAL HISTORY Procedure Laterality Date EGD WITH BIOPSY(S) 11/16/2023 Dr. Guo EGD WITH BIOPSY(S) 02/06/2024 Dr. Boone MANOMETRY ESOPHAGEAL 02/06/2024 Dr. Boone PH SMALLS INSERT OFF MEDS 02/06/2024 Dr. Boone FAMILY HISTORY Problem Relation Age of Onset other (gall bladder) Mother gall stones Polycystic Ovary Syndrome Sister Seizures Maternal Grandmother Heart Other maternal and paternal side Hypertension Other maternal great mother Cancer Other brain cancer- maternal great aunt other (hearing problems [Other]) Other maternal grandmother Malig Hyperthermia No Family History Social History Tobacco Use Smoking status: Never Smokeless tobacco: Never Vaping Use Vaping status: Never Used Substance Use Topics Alcohol use: Not Currently Drug use: Yes Types: Marijuana Comment: smoked once years ago Prior to Admission medications as of 07/24/24 0924 Medication Sig Last Dose Taking dicyclomine (BENTYL) 20 mg tablet Take 20 mg by mouth three times a day. Yes ondansetron orally disintegrating (ZOFRAN ODT) 4 mg disintegrating tablet Take 4 mg by mouth every 8 hours as needed. Yes sucralfate (CARAFATE) 1 gram tablet Take 1 tablet by mouth every 12 hours. Yes sertraline (ZOLOFT) 100 mg tablet Take 1 tablet by mouth once daily. Yes traZODone (DESYREL) 50 mg tablet Take 50 mg by mouth at bedtime as needed. For Insomnia Yes vonoprazan (VOQUEZNA) 10 mg tablet Take 10 mg by mouth once daily. Yes QELBREE 200 mg capsule, extended release Take 2 capsules by mouth every afternoon. Yes cetirizine (ZYRTEC) 10 mg tablet Take 1 tablet by mouth once daily. Yes L-norgest/e.estradiol-e.estrad (JAIMIESS ORAL) Yes mecobalamin, vitamin B12, (B12 ACTIVE) 1,000 mcg chew Yes ketotifen fumarate (ZADITOR) 0.025 % (0.035 %) ophthalmic solution Use 1 Drop in both eyes two times a day as needed. Yes metoprolol succinate ER (TOPROL XL) 25 mg 24 hr tablet take 1 tablet by mouth every day No medication comments found. ALLERGIES Allergen Reactions Cyclobenzaprine Rash Objective PHYSICAL EXAM: General: alert and oriented (x3), healthy appearance and obese. Pertinent negatives noted - not distressed. Skin: normal color, no rash or lesions. HEENT: EOM intact and pupils equal round. Pertinent negatives noted - no carotid bruit. Cardiovascular: regular rate and rhythm, normal S1 and S2, no rub, murmurs, or gallop. Respiratory: normal breath sounds, no wheezes or crackles. No chest wall deformity or tenderness. Abdomen: soft. Pertinent negatives noted - not tender. Extremities: no deformity, no edema or tenderness, no joint swelling or clubbing. Neurological: normal cognition and motor skills. Gait normal. No weakness or sensory deficit. PAIN ASSESSMENT: VITALS: BP 114/72 Pulse 86 Temp (Src) 98.1 (Temporal) Resp 14 Ht 5' 2 (1.58m) Wt 215 lb (97.5kg) SpO2 100% BMI 39.31 kg/(m^2). Diagnostic tests reviewed for today's visit: Lab [...] Hemoglobin A1C (%) Date Value 01/09/2023 5.0 No results found for this or any previous visit (from the past 8760 hours). No results found for this or any previous visit (from the past 54346 hours). Instructions Given to Patient: Instructions located in the after visit summary. Patient given verbal and written preop instructions and voices comprehension and compliance. SIGNATURE: Yun Johnson APRN.CNP PATIENT NAME: Ace Leonardo DATE: July 24, 2024 TIME: 9:14 AM PAGER/CONTACT #: T [facility] 07-24-2024 History and physical note Images from the original note were not included. [facility] HISTORY AND PHYSICAL EXAMINATION SERVICE DATE: 07/24/2024 SERVICE TIME: 9:46 AM PRIMARY CARE PHYSICIAN: Neela Lino MD, MD Assessment Patient has the following medical conditions which may affect jack-operative course: Postural orthostatic tachycardia syndrome (POTS) Assessment: controlled on rx, following [facility] and [facility] neurology last OV 03/18/2024, last cardiac OV and cardiac testing requested MIRTA (obstructive sleep apnea) Assessment: non-compliant with CPAP Gastroesophageal reflux disease Assessment: controlled on rx BMI 39.0-39.9,adult Assessment: Body mass index is 39.32 kg/m . Thyroid nodule Assessment: PCP has under surveillance Anxiety and depression Assessment: stable on rx per pt, h/o SI, but denies repeatedly any current SI/SH/HI. Following with counselor VHD (valvular heart disease) Assessment: pt reports hx leaky valve, most recent cardiac records requested from [facility] ANESTHESIA FINDINGS: Intubation History: No history of difficult intubation Significant Anesthesia Considerations: potential postop nausea/vomiting Airway History: No history of difficult airway Ceja Activity Status Index: METS: Climb a flight of stairs or walk up a hill (5.50 METs) DASI Score: 5.5 Patient denies any chest pain or undue shortness of breath with the above physical activity. Clinical Frailty Scale: 3. Well, with treated comorbid disease STOP-Bang Score: Snores loudly Has been observed to stop breathing or choking/gasping during sleep BMI greater than 35 kg/m^2 Has a large neck Denies feeling tired, fatigued, or sleepy during the daytime Denies having high blood pressure Patient 50 years old or younger Non-male patient STOP-Bang Score: 4 [id number] Score: Age: <65 Sex: female CHF history: No Hypertension history: No Stroke/TIA/thromboembolism history: No Vascular disease history: No Diabetes history: No [id number] Score: 1 ARISCAT Score: Age: <=50 Preoperative SpO2: >=96% Respiratory infection in the last month: No Preoperative anemia: No Surgical incision: upper abdominal Duration of surgery: <2 hrs Emergency procedure: No ARISCAT Score: 15 I - PHYSICAL EVALUATION AIRWAY Patient intubated: No. Tracheostomy tube not present Mallampati: I. TM distance: >3 FB. Neck ROM: full ROM without neurological symptoms. Mouth opening: adequate. Short neck: no. Thick neck: yes Novoa present: no Lip Bite Test: I Microretrognathia/Micronagthia/Re cessed Chin: No DENTAL Dental findings: teeth intact. II - ANESTHESIA PLAN Anesthetic Plan: other Beta Reymundo Monitoring Plan Post Procedure Analgesic Plan Prepared for Surgery: optimally prepared for surgery, pending [see comment]. labs CONSULTS: Patient does not require consults for optimization at this time Planned Anesthetic: other anesthesia choice The Following Tests/Procedures Have Been Initiated: Orders Placed This Encounter >CBC + AUTO DIFF Standing Status: Future Number of Occurrences: 1 Expected Date: 07/24/2024 Expiration Date: 10/23/2024 >CMP Standing Status: Future Number of Occurrences: 1 Expected Date: 07/24/2024 Expiration Date: 10/23/2024 REASON FOR VISIT: Ace Leonardo is a 23 year old female who is scheduled for Procedure(s): LAPAROSCOPIC CHOLECYSTECTOMY POSSIBLE OPEN (N/A) at the request of Dr. Ariel Guo for consultation. My final recommendation will be communicated back to the requesting physician by way of shared medical record or letter. Subjective The patient has the following: COVID-19 Immunization Status Current Care Gaps Covid-19 Vaccine ( season) Overdue since 12/16/2023 09/21/2020 Imm Admin: COVID-19 original vaccine, age 12+ yr, monovalent (PFIZER-BIONTECH - PURPLE TOP) 08/31/2020 Imm Admin: COVID-19 original vaccine, age 12+ yr, monovalent (PFIZER-BIONTECH - PURPLE TOP) CHIEF COMPLAINT: Pre-op exam HPI: Ace Leonardo is a 23 year old seen for PAC due to scheduled above surgery because of biliary dyskinesia. 07/22/2024, Dr. Ariel Guo HPI: Aec is a 23 year old female with a complaint of right upper quadrant pain. The patient has had symptoms of right upper quadrant pain for few months. The symptoms have maintained, over the past few months. The pain does radiate to the back and shoulder. Food does aggravate her symptoms. Alleviating factors include: none. The patient was seen by the emergency room physician. Ace underwent an ultrasound and a HIDA scan. These tests demonstrated a decreased gall bladder ejection fraction. The patient is referred for evaluation and treatment. The patient is being seen by me today at the request of Dr. Neela Lino MD, MD for my opinion and advice regarding Biliary dyskinesia (primary encounter diagnosis) Ruq abdominal pain. REVIEW OF SYSTEMS: General: No weight loss, malaise or fevers. Neurological: No history of TIA's, stroke, BOX BUILDER tumor, impaired sensorium, hemiplegia, paraplegia or quadraplegia. No neurological symptoms or problems. Respiratory: Positive for: obstructive sleep apnea and CPAP/BiPAP noncompliant. Negative for: asthma, COPD, current cough, dyspnea, pneumonia within 6 weeks, tobacco use and URI < 2 weeks. Cardiovascular: POTS, on rx Positive for: arrhythmia and murmur/valvular heart disease Negative for: abdominal aortic aneurysm, AICD/PPM, angina, anticoagulation therapy, atrial fibrillation, CAD, chest pain, CHF, congenital heart defect, DVT/PE, hyperlipidemia, hypertension, recent PA, PTCA, PVD, open heart surgery and valve surgery. GI: See HPI. Positive for: dysphagia (dry solids) and GERD (on rx) Negative for: abdominal pain, esophageal stricture, hepatitis, irritable bowel syndrome, inflammatory bowel disease, liver disease, nausea, pancreatitis and vomiting. : No history of dysuria, frequency or incontinence, stones or chronic kidney disease. No difficulty urinating, nocturia > 1 time per night or hematuria. TALLOW PUMPER: Negative for abnormal vaginal bleeding, abnormal vaginal discharge. Endocrine: +thyroid nodule. No history of diabetes. Has not taken steroids within the past 30 days. No history of endocrinological symptoms or problems. Hematology: No history of bleeding or clotting disorder. Patient is not taking anti-coagulation or platelet medications. No history of hematological symptoms or problems. Oncology: No history of CA metastasis, chemo within 30 days, or radiotherapy within 90 days. No history of oncological symptoms or problems. Psych: Positive for: anxiety (on rx) and depression (on rx). Negative for: Marijuana Use. Musculoskeletal: Positive for: back pain. Skin: Negative for lesions, rash and itching. Implanted Devices: No implanted devices. PAST MEDICAL HISTORY Diagnosis Date Chronic bilateral low back pain with left-sided sciatica Class 3 severe obesity due to excess calories without serious comorbidity with body mass index (BMI) of 40.0 to 44.9 in adult (HCC) Gastroesophageal reflux disease, unspecified whether esophagitis present GERD (gastroesophageal reflux disease) Morbid obesity with BMI of 40.0-44.9, adult ([facility]) Obstructive sleep apnea POTS (postural orthostatic tachycardia syndrome) Regurgitation of food Sciatica of left side Spinal stenosis of lumbar region without neurogenic claudication PAST SURGICAL HISTORY Procedure Laterality Date EGD WITH BIOPSY(S) 11/16/2023 Dr. Guo EGD WITH BIOPSY(S) 02/06/2024 Dr. Boone MANOMETRY ESOPHAGEAL 02/06/2024 Dr. Boone PH SMALLS INSERT OFF MEDS 02/06/2024 Dr. Boone FAMILY HISTORY Problem Relation Age of Onset other (gall bladder) Mother gall stones Polycystic Ovary Syndrome Sister Seizures Maternal Grandmother Heart Other maternal and paternal side Hypertension Other maternal great mother Cancer Other brain cancer- maternal great aunt other (hearing problems [Other]) Other maternal grandmother Malig Hyperthermia No Family History Social History Tobacco Use Smoking status: Never Smokeless tobacco: Never Vaping Use Vaping status: Never Used Substance Use Topics Alcohol use: Not Currently Drug use: Yes Types: Marijuana Comment: smoked once years ago Prior to Admission medications as of 07/24/24 0924 Medication Sig Last Dose Taking dicyclomine (BENTYL) 20 mg tablet Take 20 mg by mouth three times a day. Yes ondansetron orally disintegrating (ZOFRAN ODT) 4 mg disintegrating tablet Take 4 mg by mouth every 8 hours as needed. Yes sucralfate (CARAFATE) 1 gram tablet Take 1 tablet by mouth every 12 hours. Yes sertraline (ZOLOFT) 100 mg tablet Take 1 tablet by mouth once daily. Yes traZODone (DESYREL) 50 mg tablet Take 50 mg by mouth at bedtime as needed. For Insomnia Yes vonoprazan (VOQUEZNA) 10 mg tablet Take 10 mg by mouth once daily. Yes QELBREE 200 mg capsule, extended release Take 2 capsules by mouth every afternoon. Yes cetirizine (ZYRTEC) 10 mg tablet Take 1 tablet by mouth once daily. Yes L-norgest/e.estradiol-e.estrad (JAIMIESS ORAL) Yes mecobalamin, vitamin B12, (B12 ACTIVE) 1,000 mcg chew Yes ketotifen fumarate (ZADITOR) 0.025 % (0.035 %) ophthalmic solution Use 1 Drop in both eyes two times a day as needed. Yes metoprolol succinate ER (TOPROL XL) 25 mg 24 hr tablet take 1 tablet by mouth every day No medication comments found. ALLERGIES Allergen Reactions Cyclobenzaprine Rash Objective PHYSICAL EXAM: General: alert and oriented (x3), healthy appearance and obese. Pertinent negatives noted - not distressed. Skin: normal color, no rash or lesions. HEENT: EOM intact and pupils equal round. Pertinent negatives noted - no carotid bruit. Cardiovascular: regular rate and rhythm, normal S1 and S2, no rub, murmurs, or gallop. Respiratory: normal breath sounds, no wheezes or crackles. No chest wall deformity or tenderness. Abdomen: soft. Pertinent negatives noted - not tender. Extremities: no deformity, no edema or tenderness, no joint swelling or clubbing. Neurological: normal cognition and motor skills. Gait normal. No weakness or sensory deficit. PAIN ASSESSMENT: VITALS: BP 114/72 Pulse 86 Temp (Src) 98.1 (Temporal) Resp 14 Ht 5' 2 (1.58m) Wt 215 lb (97.5kg) SpO2 100% BMI 39.31 kg/(m^2). Diagnostic tests reviewed for today's visit: Lab [...] Hemoglobin A1C (%) Date Value 01/09/2023 5.0 No results found for this or any previous visit (from the past 8760 hours). No results found for this or any previous visit (from the past 38294 hours). Instructions Given to Patient: Instructions located in the after visit summary. Patient given verbal and written preop instructions and voices comprehension and compliance. SIGNATURE: Yun Johnson APRN.GEAR DESIGN ENGINEER PATIENT NAME: Ace Leonardo DATE: July 24, 2024 TIME: 9:14 AM PAGER/CONTACT #: documented in this encounter [facility] 07-24-2024 Instructions Yun Johnson APRN.CNP - 07/24/2024 9:14 AM EDT Images from the original note were not included. [facility] PATIENT PREOPERATIVE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 red light flashes and it beeps when it is disconnected but it will reconnect itself. Currently the concessionist is connected. Patient is using the lanyard or keeping the concessionist in her lap. Patient states she can feel the Smalls capsule in her throat. I asked the patient to try to ride it out until tomorrow afternoon, when the test should be completed, as I believe the concessionist is still working. I did tell her that if the concessionist starts beeping continuously then put it in another room or her car so it does not keep her awake overnight. Patient agreed with the plan. I gave the patient my contact information. Remigio Villar RN [facility] 02-07-2024 Miscellaneous Notes Patient sent a [employer] message about the [employer] concessionist so I called her for more information. Ace said that the concessionist has disconnected about 5 times since last night, even though it is sitting on my lap. It does reconnect. Patient states the red light flashes and it beeps when it is disconnected but it will reconnect itself. Currently the concessionist is connected. Patient is using the lanyard or keeping the concessionist in her lap. Patient states she can feel the Sm[employer] capsule in her throat. I asked the patient to try to ride it out until tomorrow afternoon, when the test should be completed, as I believe the concessionist is still working. I did tell her that if the concessionist starts beeping continuously then put it in another room or her car so it does not keep her awake overnight. Patient agreed with the plan. I gave the patient my contact information. Remigio Villar RN documented in this encounter [facility] 02-06-2024 Nurse Note This patient was taken [...] bleeding. This patient tolerated this procedure well. [facility] 02-06-2024 Nurse Note This patient was taken [...] this procedure well. documented in this encounter [facility] 02-06-2024 History and physical note HISTORY AND [...] SURGICAL HISTORY Procedure Laterality Date EGD W/O [facility] SPEC VARICIES INJ 11/16/2023 FAMILY HISTORY Problem [...] SENSIMIST) 27.5 mcg/actuation nasal spray Use 1 [place] in each nostril two times a day. [...] which included preparing to see the patient, [id number] patient care, completing clinical documentation, and performing a medically appropriate examination. Instructions Given to Patient: Patient given verbal preop instructions and voices comprehension and compliance. SIGNATURE: Karly Magaña APRN.CNP PATIENT NAME: Ace Leonardo DATE: February 06, 2024 TIME: 11:21 AM PAGER/CONTACT #: [facility] 02-06-2024 History and physical note HISTORY AND [...] SURGICAL HISTORY Procedure Laterality Date EGD W/O [facility] SPEC VARICIES INJ 11/16/2023 FAMILY HISTORY Problem [...] SENSIMIST) 27.5 mcg/actuation nasal spray Use 1 [place] in each nostril two times a day. [...] which included preparing to see the patient, [id number] patient care, completing clinical documentation, and performing a medically appropriate examination. Instructions Given to Patient: Patient given verbal preop instructions and voices comprehension and compliance. SIGNATURE: Karly Magaña APRN.CNP PATIENT NAME: Ace Leonardo DATE: February 06, 2024 TIME: 11:21 AM PAGER/CONTACT #: documented in this encounter [facility] 01-30-2024 Note HNO ID: [id number] Author: REMIGIO VILLAR RN Service: ? Author [...] patient's questions were answered. Remigio Villar RN [facility] 01-30-2024 History of Present illness Narrative Patient [...] SURGICAL HISTORY Procedure Laterality Date [facility] 11/16/2023 Social History Tobacco [...] SENSIMIST) 27.5 mcg/actuation nasal spray Use 1 [place] in each nostril two times a day. [...] (bmi) of 40.0 to 44.9 in adult ([facility]) Plan: ASSESSMENT/PLAN: 1. Gastroesophageal reflux disease, unspecified [...] (BMI) of 40.0 to 44.9 in adult ([facility]) - ICD9: 278.01, V85.41, ICD10: E66.813, E66.01, Z68.41 Stable Medical Decision Making: Problems: Moderate: New problem with uncertain prognosis Data: Unique test(s) ordered: 3+ Risk: Low: Low risk from testing/treatment Medical Decision Making Level: 4 - Moderate Sidney Boone M.D., F.A.C.S. documented in this encounter [facility] 01-30-2024 Instructions Sidney Boone MD - 01/30/2024 9:45 AM EDT Thank you for coming to see me today. It is my pleasure to take care of you. If you have any questions regarding your visit, please don't hesitate to contact us. documented in this encounter [facility] 01-30-2024 Note HNO ID: [id number] Author: SIDNEY BOONE MD Service: ? Author [...] SURGICAL HISTORY Procedure Laterality Date EGD W/O [facility] SPEC VARICIES INJ 11/16/2023 Social History Tobacco [...] SENSIMIST) 27.5 mcg/actuation nasal spray Use 1 [place] in each nostril two times a day. [...] (bmi) of 40.0 to 44.9 in adult ([facility]) Plan: ASSESSMENT/PLAN: 1. Gastroesophageal reflux disease, unspecified [...] (BMI) of 40.0 to 44.9 in adult ([facility]) - ICD9: 278.01, V85.41, ICD10: E66.813, E66.01, Z68.41 Stable Medical Decision Making: Problems: Moderate: New problem with uncertain prognosis Data: Unique test(s) ordered: 3+ Risk: Low: Low risk from testing/treatment Medical Decision Making Level: 4 - Moderate Sidney Boone M.D., F.A.C.S. [facility] 01-03-2024 Note HNO ID: [id number] Author: ARIEL GUO MD Service: ? Author [...] see her back once these are done. [facility] 01-03-2024 History of Present illness Narrative [...] these are done. documented in this encounter [facility] 12-31-2023 Telephone encounter Note Per Dr. Guo patient to have esophageal manometry & a 48 hr PH probe. Email sent to Remigio Villar to have their office review and call patient. Patient aware their office will call to schedule. Patient then to follow back up with Richardson's office after appointments are done Keren Martinez Ct Technologist [facility] 12-31-[address] Guo patient to have esophageal manometry & a 48 hr PH probe. Email sent to Remigio Villar to have their office review and call patient. Patient aware their office will call to schedule. Patient then to follow back up with [facility]'s office after appointments are done Keren Martinez Ct Technologist documented in this encounter [facility] 12-31-2023 Telephone encounter Note Prescription Refill Information [...] RACIEL Su December 31, 2023 10:34 AM [facility] 12-31-2023 Miscellaneous Notes Prescription Refill Information The [...] 2023 10:34 AM documented in this encounter [facility] 11-19-2023 Telephone encounter Note Contacted Ace with the Recommendations below. She stated the pain was the same as it was in the ED. I recommended if the pain gets worse, or doesn't go away to be reevaluated in the ED. She voiced understanding and had no further questions.Vera Nicholson RN [facility] 11-19-2023 Miscellaneous Notes Contacted Ace with the Recommendations below. She stated the pain was the same as it was in the ED. I recommended if the pain gets worse, or doesn't go away to be reevaluated in the ED. She voiced understanding and had no further questions.Vera Nicholson RN Patient calling and reports she has had constant aching pain in her lower abdomen since EGD. Occasionally sharp depending on activity and had signifcant nausea over the weekend. She was evaluated at [facility] ER and given medication for nausea and discharged to home. She is wondering if there is anything she should be doing for pain? Denies emesis or cough/hemoptysis. Reports the pain interferes with sleep. She would like a work excuse for today if possible. Patient can be reached at [phone] Ivis Richter LPN documented in this encounter [facility] 08-05-2024 Telephone encounter Note Patient calling and reports she has had constant aching pain in her lower abdomen since EGD. Occasionally sharp depending on activity and had signifcant nausea over the weekend. She was evaluated at [facility] ER and given medication for nausea and discharged to home. She is wondering if there is anything she should be doing for pain? Denies emesis or cough/hemoptysis. Reports the pain interferes with sleep. She would like a work excuse for today if possible. Patient can be reached at [phone] Ivis Richter LPN [facility] 11-18-2023 Note HNO ID: [id number] Author: JEROME ALLEN APRN.CNP Service: ? Author Type: Nurse Practitioner [...] [facility] ED. Recommended patient return to [facility] emergency room. Patient states she will be seen at [facility]. Verbalized understanding agrees with plan of care. Jerome Allen APRN.CNP [facility] 11-18-2023 History of Present illness Narrative [...] [facility] ED. Recommended patient return to [facility] emergency room. Patient states she will be seen at [facility]. Verbalized understanding agrees with plan of care. Jerome Allen APRN.GEAR DESIGN ENGINEER documented in this encounter [facility] 11-16-2023 History and physical note HISTORY AND PHYSICAL Ace Leonardo : 2000 REFERRING PHYSICIAN: SELF CHIEF COMPLAINT: Patient presents with: New Patient: EGD consult HPI: Ace is a 22 year old female referred for endoscopy. Ace notes regurgitation since I was young- before high school. Ace states that 21 [...] had a gastric emptying study done at [facility] on May that was normal. Patient [...] SENSIMIST) 27.5 mcg/actuation nasal spray Use 1 [place] in each nostril two times a day. [...] entered by the nurse and reviewed by ga Nursing Notes: Ivis Richter LPN 09/21/2023 8:37 [...] esophagitis present (primary encounter diagnosis) Monse Chapin APRN.GEAR DESIGN ENGINEER UPDATED HISTORY AND PHYSICAL EXAMINATION SERVICE DATE: [...] DATE: November 16, 2023 TIME: 11:07 AM [facility] 11-16-2023 History and physical note HISTORY AND PHYSICAL Ace Leonardo : 2000 REFERRING PHYSICIAN: SELF CHIEF COMPLAINT: Patient presents with: New Patient: EGD consult HPI: Ace is a 22 year old female referred for endoscopy. Ace notes regurgitation since I was young- before high school. Ace states that 21 [...] had a gastric emptying study done at [facility] on May that was normal. Patient [...] SENSIMIST) 27.5 mcg/actuation nasal spray Use 1 [place] in each nostril two times a day. [...] esophagitis present (primary encounter diagnosis) Monse Chapin APRNNachoGEAR DESIGN ENGINEER UPDATED HISTORY AND PHYSICAL EXAMINATION SERVICE DATE: [...] TIME: 11:07 AM documented in this encounter [facility] 09-21-2023 History of Present illness Narrative HISTORY AND PHYSICAL Ace Leonardo : 2000 REFERRING PHYSICIAN: SELF CHIEF COMPLAINT: Patient presents with: New Patient: EGD consult HPI: Ace is a 22 year old female referred for endoscopy. Ace notes regurgitation since I was young- before high school. Ace states that 21 [...] had a gastric emptying study done at [facility] on May that was normal. Patient [...] SENSIMIST) 27.5 mcg/actuation nasal spray Use 1 [place] in each nostril two times a day. [...] entered by the nurse and reviewed by ga Nursing Notes: Ivis Richter LPN 09/21/2023 8:37 [...] esophagitis present (primary encounter diagnosis) Monse Chapin APRN.GIOVANNA documented in this encounter [facility] 09-21-2023 Nurse Note REVIEW OF SYSTEMS: General: [...] N/A Last Colonoscopy: N/A Ivis Richter LPN [facility] 09-21-2023 Nurse Note REVIEW OF SYSTEMS: General: [...] Ivis Richter LPN documented in this encounter [facility] 09-13-2023 Telephone encounter Note Referral received, given to pss patient resource specialist to reach out to patient for an appointment. Ирина Frost LPN September 13, 2023 3:43 PM [facility] 09-13-2023 Miscellaneous Notes Referral received, given to pss patient resource specialist to reach out to patient for an appointment. Ирина Frost LPN September 13, 2023 3:43 PM No appointment or referral for this patient. Ирина Frost LPN September 13, 2023 3:[address] Lino's office at [facility] calling and asking for update on appointment with Dr. Guo. I didn't see anything scheduled. Michelle will fax referral again. documented in this encounter [facility] 09-13-2023 Telephone encounter Note No appointment or referral for this patient. Ирина Frost LPN September 13, 2023 3:38 PM [facility] 09-13-2023 Telephone encounter Note Michelle from Dr. Lino's office at [facility] calling and asking for update on appointment with Dr. Guo. I didn't see anything scheduled. Michelle will fax referral again. [facility] 09-05-2023 Instructions Hemalatha Anthony PA-C - 09/05/2023 [...] tips for improved daily living with POTS. [email or web address] Orthostatic Workout There are videos /playlist/podcast to viewed and helped for exercises and wellness for POTS and Orthostatics Instructions:[email or web address].[email or web address] com/[email or web address]/[email or web address] hDA In your search bar in the [...] support people Also follow us along on [employer] account ISAURA Also besides the exercise are some morales mediation videos . Click and watch. Utilize when your adrenaline is active. May even play music to go along. Play the video as often you want to help as an additional tool to reset the adrenaline https://www.Everdream.com/watch?v=h ZCi8fEvOM6 https://www.youtube.com/watch?v=c 6rMgyI-3pU&feature=youtu.be https://www.youtube.com/watch?v=K 1uF4pYkY61 Shared Medical Appointments To schedule the [facility] please call during Sunday-Sunday 9 am - 4 pm , THE CALL CENTER # [phone] The CALL CENTER IS OPEN 24 hours/ 7 DAYS PER WEEK Please be patient with the phone line. We are honored and glad to have you part of the SMA for POTS Welcome to [facility] (SHARED MEDICAL APPOINTMENTS) We have learned at the [facility] and especially in my work and our [...] and the Autonomic Team Scheduling Phone numbers [facility] Scheduling [phone] Neurological [place] Scheduling [phone] Cardiology - General [phone] Endocrinology [phone] Ophthalmology [phone] Physical Therapy/ Occupational Therapy [phone] Cardiology General [phone] Holter walk in [phone] walk in J-2-2 EKG walk in [phone] walk in J-1-4 Echo same day [phone] Cardiac tilt [phone] The nursing staff and medical assistants are a major part of YOUR TREATMENT TEAM and will be handling your phone calls, [employer] messages and inquiries, if any. Unless explicitly [...] do not comment on most testing on mychart in a message or commentary unless there [...] with this process. documented in this encounter [facility] 09-05-2023 History of Present illness Narrative ESTABLISHED [...] to help any allergies. Did see an linux network systems administrator and did not test positive for any allergies. Was diagnosed with chronic rhinitis. Notes her depression has improved as well, has been following with primary care for this. Did not see her rn ed, did not have skin biopsy done as [...] SENSIMIST) 27.5 mcg/actuation nasal spray Use 1 [place] in each nostril two times a day. [...] dysarthria; comprehension, naming, repetition intact. Short and jail memory intact. CN: PERRL, fundi appear normal [...] which included preparing to see the patient, [id number] patient care, completing clinical documentation, obtaining and/or reviewing separately obtained history, performing a medically appropriate examination, counseling and educating the patient/family/caregiver, and ordering medications, tests, or procedures. This document has been created with the use of voice recognition technology. It may contain inaccuracies: (e.g. misspellings, inaccurate syntax or word sense) that have escaped review. documented in this encounter [facility] 08-31-2023 Instructions Zita aTmayo MD - 08/31/2023 9:03 AM EDT Flonase sensimist 1 spray in each nostril twice a day. Ketotifen eye drops documented in this encounter [facility] 08-31-2023 History of Present illness Narrative [facility] New Patient [...] SENSIMIST) 27.5 mcg/actuation nasal spray; Use 1 [place] in each nostril two times a day. - ketotifen fumarate (ZADITOR) 0.025 % (0.035 %) ophthalmic solution; Use 1 Drop in both eyes two times a day as needed. Return to clinic in 3 months, sooner if there's any concern. AVS provided to patient and included recap of today's appointment and medical plan. Zita Tamayo MD Allergy & Clinical Immunology [facility] documented in this encounter [facility] 08-31-2023 Nurse Note NEW. Patient here for environmental/food allergies - states Food - GERD, noted undigested food in BM x years Seasonal - sneezing, itching eyes, clearing throat, congestion, PND worst in Spring to Summer months Last date Zyrtec she took was 08/28/2023. [facility] 08-31-2023 Nurse Note NEW. Patient here for environmental/food allergies - states Food - GERD, noted undigested food in BM x years Seasonal - sneezing, itching eyes, clearing throat, congestion, PND worst in Spring to Summer months Last date Zyrtec she took was 08/28/2023. documented in this encounter [facility] 06-18-2023 Miscellaneous Notes Please see results: Scan on 06/18/2023 3:15 PM by Provider, External, CHLOEC: Overnight Pulse Ox Deana Gastelum LPN Fax sent to [place] requesting records. Deana Gastelum LPN documented in this encounter [facility] 05-18-2023 History of Present illness Narrative RADIOLOGY [...] PATIENT PRESENTS WITH AN IMPLANTABLE OR ATTACHED REMOTELY PILOTED VEHICLE CONTROLLER: N/A CREATININE: Creatinine Date Value Ref Range [...] [address] PERFORMED: No IV SITE: NH only - not applicable, oral or physician administered agents given to patient POST EXAM PIV STATUS: Not applicable PROCEDURE TYPE: NM GET: 1.1 mCi Tc99m SULFUR COLLOID was administered orally via 4 ounces of Egg Beaters,2 pieces of toast, 1 ounce of jelly with 8 ounces of water orally ADMINISTRATION TIME: 08:10 PATIENT DISCHARGED TO: Ambulatory patient, left NH department area. A Diagnostic radioactive procedure has taken place, with no further precautions necessary other than routine body substance precautions. More information regarding radiation safety can be found using this link: [email or web address] [email or web address]-%[email or web address] ear%[email or web address].pdf SIGNATURE: USHA Mims) PATIENT NAME: Ace Leonardo DATE: May 18, 2023 TIME: 10:20 AM PAGER/CONTACT #: documented in this encounter [facility] 02-22-2023 Miscellaneous Notes Faxed Prior Authorization to [facility] [phone] for Metoprolol 25 mg, 11 pages 02/22/2023. Placed documents in [facility] location. Patient notified MyChart. Pita Hickey LPN Prior Authorization Documentation Prior authorization requested for the following medication: Medication: metoprolol Provider: Bringrr Name: Jebbit Phone number: [phone] Patient ID number: [id number] [facility]: [facility] Patient reports she needs prior auth for metoprolol documented in this encounter [facility] 12-22-2022 Miscellaneous Notes Tilt table test showed [...] Pt and advise. documented in this encounter [facility] 11-15-2022 Discharge summary Note Date/Time November 14, 2022 10:02pm [facility] Medical Records Department [address] [place] [address] Emergency Department Summary 11/14/22 MR#: [id number] Acct: [id number] Name: ACE LEONARDO Rep #:[id number] : 2000 22 From: Xavier Cruz PCP: Denise Tirado DO Status:REG E R Location: ED HPI History of Present Illness Chief Complaint: Chest Pain [facility] Medical History (Updated 11/14/22 @ 22:[address] Xavier Maloney, ) Anxiety Home Medications L norgest/E estradiol-E estrad 0.15 mg-30 mcg (84)/10 mcg(7) tabs,3mos (Seasonique) 1 tab PO DAILY 05/10/22 [History Last Taken 10/20/22] fluoxetine 40 mg capsule (Prozac) 40 mg PO DAILY 05/10/22 [History Last Taken 10/20/22] Allergy/AdvReac Type Severity Reaction Status Date / Time No Known Allergies Allergy Verified 11/14/22 21:32 Social History Smoking Status: Never smoker alcohol intake: never substance use type: does not use caffeine: Yes (x2 week) EXAM Physical Exam Const Vital Signs: 11/14/22 21:29 11/14/22 22:26 11/14/22 22:37 Temperature 98.0 F Temperature Source Temporal Pulse Rate 95 78 Respiratory Rate 15 18 Blood Pressure 124/79 H 136/89 H Blood Pressure Mean 94 104 Pulse Ox 100 96 Oxygen Delivery Method Room Air Nasal Cannula Heart Score History: Slightly/Non-Suspicious ECG: Normal Age: </= 45 years Risk Factors: No Risk Factors Troponin: </= Normal Limit Score: 0 MDM MDM MDM Narrative Medical decision making narrative: HISTORY OF PRESENT ILLNESS: 22-year-old female presents with chest pain. This began approximate 5 hours prior to arrival is been intermittent. She is not having chest pain or dizziness at this time. Denies association with syncope. Denies focal numbnessweakness slurred speech facial drooping, incoordination or loss of balance. Shestates she has history of POTS. She states she is tilt table test coming up on . She does endorse using estrogen-based hormonal contraceptives. She denies any cough, fever. Denies any trauma. Denies any volume loss such as vomiting or diarrhea. Denies any bleeding diathesis She also notes dizziness. No dizziness currently. Patient denies sudden onset of pain, no tearing sensation, no migratory symptoms, no new numbness, weakness or loss of sensation. Patient denies family history or personal history of Marfan syndrome or Vahid-Danlos. The patient denies recent surgery in the last 4 weeks or immobilization in the last 3 days, denies previous diagnosis of DVT or PE, hemoptysis, unilateral leg swelling or malignancy with treatment the last 6 months. Positive estrogen use REVIEW OF SYSTEMS: All other systems reviewed and are negative except as noted in the history of present illness. At least 10 review of systems reviewed and are negative except as noted in history of present illness. PHYSICAL EXAM: Nursing triage notes reviewed, Vital signs reviewed Constitutional: please see mdm HENT: MMM Eyes: Pupils equal round and reactive to light, Extraocular muscles intact Neck: No stridor, no JVD, full neck ROM Lungs: Clear to auscultation, No wheezing or rales. No increased work of breathing, no conversational dyspnea, no accessory muscle use, no nasal flaring.No respiratory distress noted Heart: Regular rate and rhythm, No murmurs, No rubs and No gallops, 2+ distal pulses (radial, femoral, posterior tibial) in all extremities Abdomen: Soft, there is no tenderness, rigidity, rebound or guarding, no obviousperitoneal signs, no palpable pulsatile abdominal masses, no auscultated abdominal bruit : No CVAT Extremities: No edema Neuro: Alert and oriented x3, neuro exam at baseline, cranial nerves II through XII are intact. No pain with extraocular muscle movement. There is negative test of skew. Normal speech. 5 of 5 strength in upper and lower extremities inflexion extension. Intact sensation to light touch in upper and lower extremitydermatomes. No truncal or extremity ataxia. No dysdiadochokinesia. Normal gait. 2+ reflexes. No meningeal signs. Negative Babinski. NIH of 0 Skin: No rash or lesions noted MEDICAL DECISION MAKING: Chief Complaint: Chest pain External records reviewed: Seen in October 2022 for dizziness and lightheadedness. EKG at that time showed normal sinus rhythm Labs showed no evidence of anemia, electrolyte abnormalities, patient was discharged Factors affecting care: Anxiety, extremities, no contraceptive Social determinants of health:Caffeine use,, denies methamphetamine or cocaine abuse History obtained from others: The patient's boyfriend Consults: none ALL IMAGES (IF OBTAINED) HAVE BEEN PERSONALLY REVIEWED AND INTERPRETED BY MYSELF. EKG with normal sinus rhythm, normal axis, normal intervals, no ST or T wave changes to suggest ischemia. No evidence of WPW, Brugada, ARVD. MDM Narrative: Patient was hemodynamically stable, afebrile, nontoxic-appearing. No focal cardiopulmonary abnormalities. No stigmata of VTE on exam. I considered the following differential diagnosis: ACS, arrhythmia, anemia, electrolyte abnormality, pneumonia, pneumothorax, GI etiology, PE PE less likely given low risk Wells score. Aortic dissection is thought to be less likely given no sudden ripping or tearing pain, migratory pain, palpable pulse inequalities, no focal neurologic deficits concurrent with chest pain. Chance of dissection less than 04/1999. Pericarditis less likely given no pathognomonic EKG changes (no diffuse ST elevations, UT depressions). GI etiology (i.e. Boerhaave syndrome) less likely given no chest or neck crepitus, no vomiting or forced retching. I completed a HEART Score to screen for Major Adverse Cardiac Event (MACE) in this patient. The evidence indicates that the patient is very low risk for MACE and this is consistent with my clinical intuition. The risk of further workup or hospitalization for MACE is likely higher than therisk of the patient having a MACE. It is, therefore, in the patient?s best interest not to do additional emergent testing or to be hospitalized for MACE atthis time. Shared Decision-Making No hospitalization indicated I have discussed with the patient my clinical impression and the result of the HEART Score to screen for MACE, as well as the risks of further testing and hospitalization. The HEART Score shows that the risk for MACE is less than 1%. Although the risk of MACE has not been completely eliminated, the risks of further testing or hospitalization for MACE likely exceed any potential benefit,and the patient agrees with not pursuing further emergent evaluation or hospitalization for MACE at this time. I completed a structured, evidence-based clinical evaluation to screen for acutestroke and neurologic deficits in this patient. The patient has a normal detailed neurologic exam, which is highly sensitive for dangerous causes of dizziness, vertigo, or loss of balance. The evidence indicates that the patient is very low risk for an acute neurologicemergency and this is consistent with my clinical intuition. The risk of furtherworkup or hospitalization is likely higher than the risk of the patient having astroke or other dangerous neurologic condition. It is, therefore, in the patient?s best interest not to do additional emergent testing or to be hospitalized at this time. I have discussed with the patient my clinical impression and the result of an evidence-based clinical evaluation to screen for stroke, as well as the risk of further testing and hospitalization. The evidence shows that the risk for stroke is less than 1%. Although the risk of stroke has not been completely eliminated, the risks of further testing or hospitalization likely exceed any potential benefit, and the patient agrees withnot pursuing further emergent evaluation or hospitalization for stroke evaluation at this time. The patient and/or family, caregivers express understanding. The patient and/or family, caregivers agrees with the plan. Total critical care time today provided was at least 0 minutes. This excludes separately billable procedures. Critical care time (if documented) is secondary to the patient having high probability of clinically significant/life threatening deterioration in the patient's condition which required my urgent intervention. Xavier Maloney, DO Lab Data Attestation: I reviewed the patient's lab results. Lab results narrative: CBC without leukocytosis, severe anemia, no thrombocytopenia. BMP without evidence of significant electrolyte abnormalities, no anion gap, no acute kidney injury. Troponin is negative, no evidence of myocardial ischemia Labs: Laboratory Results - last 24 hr 11/14/22 22:15 WBC 7.1 RBC 4.43 Hgb 12.5 Hct 39.1 MCV 88.3 MCH 28.2 MCHC 32.0 RDW Std Deviation 42.5 RDW Coeff of Floridalma 13.0 Plt Count 357 MPV 10.0 Immature Gran % (Auto) 0.100 Neut % (Auto) 56.2 Lymph % (Auto) 32.6 Gilliam % (Auto) 9.7 Eos % (Auto) 0.7 Baso % (Auto) 0.7 Absolute Neuts (auto) 4.0 Absolute Lymphs (auto) 2.32 Nucleated RBC % 0 Sodium 139 Potassium 3.8 Chloride 106 Carbon Dioxide 27.0 Anion Gap 6 BUN 10 Creatinine 0.89 Estim Creat Clear Calc 79.08 Est GFR (MDRD) Af Amer 103 Est GFR (MDRD) Non-Af 85 BUN/Creatinine Ratio 11.2 Glucose 90 Calcium 8.7 Troponin I High Sens 3 Radiography Chest X-Ray - ED: Read by ED Physician Diagnostic Testing: Clinical Impression(s) from Imaging Studies Chest X-Ray 11/14/22 22:06 IMPRESSION: No radiographic evidence of acute cardiopulmonary disease. Electronically Signed: Michelle Encarnacion MD at 22:30 EDT , I have personally reviewed the patient's chest x-ray. Chest x-ray is unremarkable for pulmonary edema, pneumothorax, pneumonia or focal cardiopulmonary abnormality. Discharge Plan Triage Chief Complaint: Chest Pain ED Provider: Xavier Maloney Dx/Rx/DC Orders Clinical Impression: Intermittent chest pain, Postural orthostatic tachycardia syndrome [POTS] Instructions: Chest Pain [facility] Prescriptions: No Action L norgest/e.estradiol-e.estrad [Seasonique] 0.15 mg-30 mcg (84)/10 mcg (7) tablets,dose pack,3 month 1 tab PO DAILY fluoxetine [Prozac] 40 mg capsule 40 mg PO DAILY Primary Care Provider: Denise Tirado Referrals: Denise Tirado DO [Primary Care Provider] - Activity Restrictions/Additional Instructions: Thank you for trusting us with your care today! Please take Tylenol (2 pills, 650 mg), ibuprofen (2 pills, 400 mg) every 6 hoursas needed for pain and fever control. Please return to the emergency department if your symptoms change or worsen. Please follow with your primary care physician for further outpatient evaluationand management. Disposition Disposition: Home, Self Care What to do if you have Problems For any increased pain, shortness of breath, bleeding, nausea or vomiting, chestpain, or any unexpected problems, contact your Primary Care Provider. Call [facility] ([phone]) or report to the closest Emergency Room. Call 911 if necessary. 11/14/22 9248 <Electronically signed by Xavier Maloney DO> Cosigner Signature (if applicable): CC: Denise Tirado DO ~ Signed [facility] Work Phone: 1(545) 967-652907-08-2023 Discharge summary Author Espinoza Montero [facility] October 22, 2022 12:49am Note Date/Time October 21, 2022 11:42 pm [facility] Medical Records Department [address] [place] [address] Emergency Department Summary 10/21/22 MR#: [id number] Acct: [id number] Name: ACE LEONARDO Rep #:[id number] : 2000 22 From: Espinoza Montero MD PCP: Denise Tirado, DO Status:REG E R Location: ED HPI History of Present Illness Chief Complaint: Dizziness Narrative Narrative: Patient feels dizzy, she is sometimes lightheaded, she has had episodes of high blood pressure and low blood pressure, she was recently diagnosed with orthostatic hypotension and was told to drink water she also has a tilt table test pending. No fever or chills. She has no vertiginous symptoms, she feels more lightheaded. She has no vision changes or any neurological symptoms. [facility] Medical History (Updated 10/22/22 @ 00:[address] Espinoza Montero MD) Anxiety Home Medications L norgest/E estradiol-E estrad 0.15 mg-30 mcg (84)/10 mcg(7) tabs,3mos (Seasonique) 1 tab PO DAILY 05/10/22 [History Last Taken 10/20/22] fluoxetine 40 mg capsule (Prozac) 40 mg PO DAILY 05/10/22 [History Last Taken 10/20/22] Allergy/AdvReac Type Severity Reaction Status Date / Time No Known Allergies Allergy Verified 10/21/22 22:57 Social History Smoking Status: Never smoker alcohol intake: never substance use type: does not use caffeine: Yes (x2 week) ROS ROS ED ROS Narrative Past medical history: Reviewed Medications: Reviewed Social history: Noncontributory Review of systems: All systems negative except as indicated General: No fever Eyes: No visual changes ENT: No upper airway congestion, normal voice Neck: No neck pain Cardiovascular: No chest pain. Some lightheadedness Respiratory: No shortness of breath or cough Gastrointestinal: No abdominal pain, nausea vomiting or diarrhea Genitourinary: No dysuria Musculoskeletal: Denies myalgias no difficulty with ambulation Skin: No rash Neurological: No memory loss, confusion or any focal weakness EXAM Physical Exam Narrative Exam Narrative: Physical exam General: Patient appears relatively comfortable Head: Normocephalic, Atraumatic Eyes: Conjunctiva not pale ENT: Moist mucous membranes Neck: Supple, Nontender, No lymphadenopathy Cardiovascular: Regular rate, Regular rhythm Respiratory: No distress, CTA bilaterally Abdomen: Soft, Nontender, Nondistended Back: Nontender, Normal Inspection. Negative for: CVA tenderness Extremities: Nontender, No edema Skin: Normal color, No rash Neurological: Alert, Normal Strength, Normal Sensation Const Vital Signs: 10/21/22 22:53 10/21/22 23:14 Temperature 97.9 F Temperature Source Temporal Pulse Rate 108 H Respiratory Rate 15 Respiratory Effort Normal Respiratory Pattern Normal Blood Pressure 159/97 H Blood Pressure Mean 117 Pulse Ox 100 Oxygen Delivery Method Room Air MDM MDM MDM Narrative Medical decision making narrative: Patient has an unremarkable ED work-up. She has slight hypertension although she showed me on her blood pressure monitor at home that she has episodes of lowblood pressure thus I am quite reluctant to start her on any antihypertensives. She has no other symptoms and she appears well. She has normal EKG. I believe she can be safely discharged to follow-up with her PCP and neurologist. If anything changes she is to return. I do not believe at this time she needs to be admitted. Interpretation of EKG by ED physician Normal sinus rhythm with a rate of 76. Normal UT and QTc intervals. No ischemic changes. Lab Data Labs: Laboratory Results - last 24 hr 10/21/22 23:50 WBC 8.1 RBC 4.40 Hgb 12.6 Hct 38.5 MCV 87.5 MCH 28.6 MCHC 32.7 RDW Std Deviation 42.5 RDW Coeff of Floridalma 13.2 Plt Count 332 MPV 10.2 Immature Gran % (Auto) 1.000 H Neut % (Auto) 58.2 Lymph % (Auto) 32.1 Gilliam % (Auto) 7.4 Eos % (Auto) 0.7 Baso % (Auto) 0.6 Absolute Neuts (auto) 4.7 Absolute Lymphs (auto) 2.59 Nucleated RBC % 0 Sodium 138 Potassium 3.7 Chloride 105 Carbon Dioxide 27.0 Anion Gap 6 BUN 12 Creatinine 0.88 Estim Creat Clear Calc 79.98 Est GFR (MDRD) Af Amer 104 Est GFR (MDRD) Non-Af 86 BUN/Creatinine Ratio 13.6 Glucose 89 Calcium 8.5 Total Bilirubin 0.30 AST 16 ALT 19 Alkaline Phosphatase 63 Troponin I High Sens < 3 L Total Protein 7.0 Albumin 3.3 Globulin 3.7 Albumin/Globulin Ratio 0.9 Discharge Plan Triage Chief Complaint: Dizziness ED Provider: Espinoza Montero Dx/Rx/DC Orders Clinical Impression: Dizziness, Lightheadedness, Hypertension Instructions: Controlling High Blood Pressure, Blood Pressure Check Steps Prescriptions: No Action L norgest/e.estradiol-e.estrad [Seasonique] 0.15 mg-30 mcg (84)/10 mcg (7) tablets,dose pack,3 month 1 tab PO DAILY fluoxetine [Prozac] 40 mg capsule 40 mg PO DAILY Primary Care Provider: Denise Tirado Referrals: Denise Tirado, [Primary Care Provider] - 3-5 Days Disposition Disposition: Home, Self Care What to do if you have Problems For any increased pain, shortness of breath, bleeding, nausea or vomiting, chestpain, or any unexpected problems, contact your Primary Care Provider. Call [facility] ([phone]) or report to the closest Emergency Room. Call 911 if necessary. 10/22/22 0049 <Electronically signed by Espinoza Montero MD> Cosigner Signature (if applicable): CC: Denise Tirado DO ~ Signed [facility] Work Phone: 1(943) 764-805206-21-2023 Instructions* Patient Instructions* Hemalatha Anthony PA-C - 10/04/2022 2:06 PM [...] tips for improved daily living with POTS. http://[email or web address]/pots Orthostatic Workout There are videos /playlist/podcast to viewed and helped for exercises and wellness for POTS and Orthostatics Instructions:https://www.[email or web address]/[email or web address] In your search bar in the internet go type YOU TUBE 2. Search in the YOU TUBE search bar Trev Orthostatic Exercises 3. Select Beginner Introduction Beginner Orthostatic Workout . This is for starting out . 4. As you advance the Beginner Orthostatic Workout may be next step or integrated into the Beginnerwork out 5. There is a video for [...] support people Also follow us along on [employer] account POTSWILSON Also besides the exercise are some morales mediation videos . Click and watch. Utilize when your adrenaline is active. May even play music to go along. Play the video as often you want to help as an additional tool to reset the adrenaline https://www.[employer].com/watch?v=fRQw3iKbUL6 https://www.[employer].com/watch?v=a4bOmgN-9kW&feature=youtu.be https://www.[employer].com/watch?v=Y2bG5bZyD58 Shared Medical Appointments To schedule the [facility] please call during Sunday-Sunday 9 am - 4 pm , THE CALL CENTER # [phone] The CALL CENTER IS OPEN 24 hours/ 7 DAYS PER WEEK Please be patient with the phone line. We are honored and glad to have you part of the SMA for POTS Welcome to [facility] (SHARED MEDICAL APPOINTMENTS) We have learned at the [facility] and especially in my work and our department that POTS thatthere is so much to learn to live [...] and the Autonomic Team Scheduling Phone numbers [facility] Scheduling [phone] Neurological [place] Scheduling [phone] Cardiology - General [phone] Endocrinology [phone] Ophthalmology [phone] Physical Therapy/ Occupational Therapy [phone] Cardiology General [phone] Holter walk in [phone] walk in J-2-2 EKG walk in [phone] walk in J-1-4 Echo same day [phone] Cardiac tilt [phone] The nursing staff and medical assistants are a major part of YOUR TREATMENT TEAM and will be handling your phone calls, Sportholdt messages and inquiries, if any. Unless explicitly told otherwise at thetime of your office visit, your study results [...] do not comment on most testing on [employer] in a message or commentary unless there [...] center for syncope, autonomic dysfunction, general neurology, headachecare, neuromuscular disease, and other related conditions, seeing patients from across the world, we do not have the resource of time or staffing to address inquiries for accommodations. As such, we do not provide or complete requests for work accommodations, FMLA, disability, or other such forms. We recommend seeking guidance through your primary care provider for these requests. We are happy toprovide our office notes from your visits and other tests or evaluations performed through our clinic, which can be made available upon request to assist you with this process. [facility] History of Present illness Narrative* Hemalatha Anthony PA-C - 10/04/2022 1:23 PM EDT Images from the original note were not included. Neurology Outpatient Clinic Date: October 04, 2022 Patient Name: Ace Leonardo Referring physician: Denise Tirado [address] [facility] [address] Consult requested for dizziness by Dr. Tirado. [...] normal and reported normal teLH worse with warmweather. Patient presents for evaluation of lightheadedness. Patient notes onset over a year ago, no eliciting event, trauma, medication change, diagnosed at that time. Notes that it is daily, progressively worsening since onset. Worse when position changing from sitting to standing. Denies any syncope, butdoes note that she became lightheaded, causing her to hit her head and then passed out secondary to this head injury. This head injury was in August 05 and recovered well from this. Notes that she hadbent over while at work at [employer], and then quickly stood up causing her to be acutely lightheadedand hit her head, causing her to pass [...] rate from 88-153 during the study. No seizure-likeactivity, no incontinence, no tongue biting. Again, no [...] noted vitamin deficiencies or supplementations. No diet restrictions.Denies any constipation, diarrhea, dry mouth, dry eyes, [...] HPI. Otherwise a 10-point ROS was completed andwas negative. ALLERGIES No Known Allergies Past Medical [...] 5/5 Finger Abd 5/5 5/5 Finger Add / 5/5 MUSCLES Lower Extremity RIGHT LEFT Hip Flexion 5/5 5/5 Hip Extension 5/5 5/5 BiFem (Knee Flex) 5/5 5/5 Quads (Knee Ext) 08/18 5/5 Gastroc (Plantflx) 08/18 5/5 TibAnt (Dorsiflx) / 5/5 FlxHLong (Toe Flex) 5/5 5/5 ExtHLong (Toe Ext) 5/ 5/5 Sensory Examination Intact to vibration throughout, intact proprioception. Minimally decreased sensation to temperaturein both the hands and feet equally and bilaterally, minimally decreased to sharp in the feet bilaterally. Reflexes Right Left Bicep 2/4 2/4 Tricep 2/4 2/4 BrRad 2/4 2/4 Knee 2/4 2/4 Ankle 2/4 2/4 Glaser Response Negative Negative Coordination: finger-to- nose-finger intact bilaterally and perm-dd-ibtv intact bilaterally. Gait: Patient's gait is normal, can heel and toe walk and can tandem walk Romberg: Negative DATA REVIEWED Actual films/image/tracing reviewed and summarized as follows: ECHO, mri brain, tilt table Old records reviewed and summarized as follows: limited- [facility] (cardio and pcp) Assessment/Plan Assessment & Plan: Ace Leonardo is a 22 year old female with a history of GERD. Her examination demonstrates mild small fiber abnormalities to the hands and feet as noted above. Negative orthostats today (noted difficulty with reading on machine, needed manual). Patient with lightheadedness and presyncope onset a few months ago. Onset with sitting to standing,exercise. Has been evaluated by cardiology at [facility] with normal ECHO, normal holter, and normal MRI brain. Did obtain tilt table test that was read as normal, however, does appear to have a significantdrop in blood pressure and significant raise in heart rate (88-153) when upright. This is concerning for dysautonomia. Discussed repeating the test in our system and patient would like to repeat this. Will order repeat tilt table test. Additionally, minimal small fiber abnormalities were found on sensory exam as noted above concerning for possible small fiber neuropathy. Discussed skin biopsy forsmall fiber nerves and patient elected to have [...] which included preparing to see the patient, [id number] patient care, completing clinical documentation, obtaining and/or reviewing separately obtained history, performing a medically appropriate examination, counseling and educating the pat ient/family/caregiver, and ordering medications, tests, or procedures. Hemalatha Anthony PA-C [facility] This document has been created with the use of voice recognition technology. It may contain inaccuracies: (e.g. misspellings, inaccurate syntax or word sense) that have escaped review. documented in this encounterTrihealth06-01-2023 Miscellaneous Notes* Telephone Encounter - Deana Gastelum LPN - 09/14/2022 7:59 AM EDT Received referral request from [facility] for this patient to be seen for lightheadedness. Referral printed off and given to Stephanie Joyce. Deana Gastelum LPN documented in this encounterTrihealth03-07-2023 History and physical note Author Dr. Vargas [facility] June 20, 2022 3:48pm Note Date/Time June 20, 2022 3:48 pm [facility] Medical Records Department [address] [place] [address] History & Physical Exam 06/20/22 1544 MR#: [id number] Acct: [id number] Name: JORDENACE SANA Rep #:[id number] : 2000 21 From: Espinoza Vargas MD PCP: Denise Tirado DO Status:REG Maik FONTANA Location: [facility] History and Physical Date of Admission: 06/20/22 [facility] [address] [place] [address] OFFICE VISIT Date of Service:? 05/11/22 MR#: [id number] Acct: [id number] Name:? JORDENACE SANA Rep #: [id number] : 2000 Provider: Dr. Espinoza Vargas MD Age/Sex:? 21/F [place] [facility] Status: Signed [facility] HPI History of Present Illness Details: This is a 21-year-old white female who presents today for outpatient cardiovascular consultation based upon concerns of dizziness, lightheadedness, and syncope.? She states for greater than a year now she is experienced these symptoms with respect to dizziness and lightheadedness.? This can occur on a daily basis.? She states it can last for seconds.? During this time she does feel off balance, sometimes her vision is blurry, sometimes her hearing appears to be diminished, sometimes she feels transiently nauseated.? She notes she willpause and her symptoms will pass and then she can resume her activities.? She states that in the spring 2021 she had an episode after bending over and pickingup a case of water where she felt dizzy and lightheaded and transiently lost consciousness.? She stated 3 days later she went to the emergency department forevaluation.? She notes her evaluation was unremarkable at the time.? She has nothad a recurrent syncopal event. She does not describe any concerning chest discomforts.? She has had no orthopnea or PND or peripheral pitting edema.? She states she has not necessarily sensed a change in her heart rate and rhythm. She has been evaluated by ENT.? She has undergone brain MRI yesterday.? According to the report it was a normal unenhanced and enhanced MRI of the brain.? She states she is waiting for further follow-up from her PCP and/or ENT. She had an ECG in the office today.? She was noted to be in sinus rhythm.? She had no acute ECG changes. She states she has not gone through any cardiovascular evaluation in the past. Intake Vital Signs ? 08/03/2214:40 05/11/2314:44 05/11/2314:48 05/11/2315:02 Height 5 ft 2 in 5 ft 2 in 5 ft 1 in ? Weight: 179 lb ? 163 lb 2 oz ? BMI 32.7 ? 30.8 ? BP 139/93 H ? 122/78 HB 124/72 H Blood Pressure Location ? ? Lt brachial Lt brachial Position ? ? Sitting Standing Respiration 18 ? 14 ? Pulse 99 ? 84 96 Pulse Source ? ? Auscultation Auscultation Temp 97.1 F L ? ? ? Pulse Oximetry (%) 99 ? ? ? 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 Smoking Status:? Never smoker alcohol intake:? never substance use type:? does not use caffeine:? Yes (x2 week) ROS Const Const: Positive for headache(s) (after dizziness episodes); Negative for fatigue, weakness, body ache, fever(s), chills, frequent falls, night sweats, daytime sleepiness, difficulty sleeping, excessive sweating, weight gain, weight loss, increased appetite, poor appetite, anorexia or other Eyes Eyes: Negative for blurry vision or double vision ENT ENT: Positive for headache(s) (after dizziness episodes) and dizziness (blurred vision everything moves slower, position changes, weeding/mowing); Negative for balance problems Cardio Chest Pain: No Palpitations: No Edema: None Muscle aches with walking: None Resp Respiratory: Positive for SOB with activity (past 2 years, baseline); Negative for SOB at rest, SOB orthopnea\SOB lying down, Cough, Coughing up blood/hemoptysis, chest congestion, pain on inspiration, snoring, stridor, wheezing, crackles, paroxysmal nocturnal dyspnea or other Musc Musc: Positive for muscle aches/ myalgia (chronic back pain); Negative for muscle weakness, joint pain or balance problems Neuro Neuro: Positive for dizziness (blurred vision everything moves slower, position changes, weeding/mowing), lightheadedness (as soon as I do something couple seconds after I get up), syncope (x1 episode, bending over to shredder picker a case of water became dizzy) and headache(s) (after dizziness episodes); Negative for near syncope, orthostatic symptoms, frequent falls, weakness, confusion, memory loss, restless legs, blurry vision, double vision, vertigo, seizures, lack of coordination or other Endo Endo: Negative for fatigue or excessive sweating Cardiology Exam Const Appearance: cooperative, healthy appearing, comfortable, no acute distress, welldeveloped and well groomed Nutritional Appearance: overweight Orientation: alert, awake and oriented x3 Head Head: normal to inspection, normocephalic and atraumatic Ears: hearing grossly normal bilaterally Nose: external nose normal Face and Sinus: face symmetric Eyes Eyelids: eyelids normal Conjunctivae: conjunctivae normal Pupils: PERRL EOM: EOM intact bilaterally Neck Neck: normal visual inspection and full ROM Carotids: normal carotid upstroke Chest Chest inspection: normal inspection of the chest, symmetric chest movement and normal respiratory effort Auscultation: Bilateral: Clear to Auscultation Cardio Palpation: normal PMI Rate: regular rate Rhythm: regular rhythm Heart sounds: S1 normal and S2 normal GI GI: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 back pain without sciatica Procedures XR LUMBAR GENERAL 3V AP/LAT/L5-S1 RADEX SPINE LUMBOSACRAL 2/3 VIEWS Michelle Hancock, ADA [address] [facility] [address] [place] [address] Phone: tel: fax: [place] [address] Referral ID Status Reason Start Date Expiration Date V isits Requested Visits Authorized [id number] Closed Auto-Generate d Referral 06/02/2024 07/02/2025 1 1 [facility] Chief Complaint and Reason for Visit Chief Complaint DIZZINESS lightheadness/ dizziness (CELESTINO) E ORDER Reason for Visit Dizziness Lightheadedness Syncope Chief Complaint DIZZINESS lightheadness/ dizziness (CELESTINO) E ORDER SYNCOPE Amb Documentation Reason for Visit Dizziness Lightheadedness Syncope Chief Complaint DIZZINESS lightheadness/ dizziness (CELESTINO) E ORDER SYNCOPE Amb Documentation PALP PALP Reason for Visit Dizziness Lightheadedness Syncope Chief Complaint 3 M FU PAIN OTHER COUGH, PAIN SWALLOWING LIGHTHEADED Reason for Visit Dizziness Lightheadedness Syncope Chief Complaint 3 M FU PAIN OTHER COUGH, PAIN SWALLOWING LIGHTHEADED INTERMITTENT CP AND DIZZINESS Reason for Visit Dizziness Lightheadedness Syncope Chief Complaint 3 M FU PAIN OTHER COUGH, PAIN SWALLOWING LIGHTHEADED INTERMITTENT CP AND DIZZINESS SOB Reason for Visit Dizziness Lightheadedness Syncope Chief Complaint LIGHTHEADED INTERMITTENT CP AND DIZZINESS SOB PER BRIANNA-SEE NOTE CHEST PAIN CHEST PAIN Amb Documentation Reason for Visit Chest pain Dizziness Syncope Chief Complaint 5 m fu Reason for Visit Chest pain Postural orthostatic tachycardia syndrome [POTS] Weight gain Advance Directives Advance Directive Response Recorded Date/ Time Living Will No August 03, 2021 2:45pm Power of Java Integration Developer No August 03 2:45pm Advance Directive Response Recorded Date/ Time Living Will No August 03, 2021 3:45pm Power of Java Integration Developer No August 03 3:45pm Advance Directive Response Recorded Date/ Time Living Will No October 21, 2022 1 1:14pm Power of Java Integration Developer No October 21, 2022 11:14pm Advance Directive Response Recorded Date/ Time Living Will No November 14, 2022 10:26pm Power of Java Integration Developer No November 14 10:26pm Advance Directive Response Recorded Date/ Time Living Will No November 16, 2022 12:57pm Power of Java Integration Developer No November 16 12:57pm Advance Directive Response Recorded Date/ Time Living Will No November 16, 2022 11:57am Power of Java Integration Developer No November 16 11:57am Reason for Referral Specialty Diagnoses / Procedures Referred By Contac t Referred To Contact [facility] Diagnoses Sciatica of left side Procedures CONSULT TO PHYSICAL THERAPY PHYSICAL THERAPY EVALUATION HIGH COMPLEX 45 MINS Hemalatha Anthony PA-C [address] [place] [address] [facility] [address] [place] [address] Referral ID Status Reason Start Date Expiration Date Visits Requested Visits Authorized [id number] Authorized Auto-Generat ed Referral 04/16/2023 04/15/2024 1 1 Specialty Diagnoses / Procedures Referred By Contac t Referred To Contact MR IMAGING Diagnoses Spinal stenosis of lumbar region without neurogenic claudication Procedures MRI LUMBAR SPINE WO IVCON MRI SPINAL CANAL LUMBAR W/O CONTRAST MATERIAL Hemalatha Anthony PA-C [address] [place] [address] [place] [address] Referral ID Status Reason Start Date Expiration Date Visits Requested Visits Authorized [id number] Pending Review Auto-Generat ed Referral 03/18/2024 04/17/2025 1 1 Specialty Diagnoses / Procedures Referred By Contac t Referred To Contact Pain Management Diagnoses Chronic bilateral low back pain with left-sided sciatica Procedures CONSULT TO PAIN MGT OFFICE/OUTPATIENT NEW HIGH MDM 60 MINUTES Hemalatha Anthony PA-C [address] [place] [address] Referral ID Status Reason Start Date Expiration Date Visits Requested Visits Authorized [id number] Authorized PCP Requested Referral 03/18/2024 06/16/2024 1 1 Specialty Diagnoses / Procedures Referred By Controdolfo newby Referred To Contact [facility] Diagnoses Obstructive sleep apnea Procedures HOME SLEEP APNEA TEST (HSAT) SLEEP STD AIRFLOW HRT RATE&O2 SAT EFFORT UNATT Hemalatha Anthony PA-C [address] [place] [address] [facility] [address] [place] [address] Referral ID Status Reason Start Date Expiration Date Visits Requested Visits Authorized [id number] Authorized Auto-Generat ed Referral 03/18/2024 03/18/2025 1 1 Summary Purpose Family History No Family History Records FoundNo Family History Records FoundNo Family History Records FoundNo Family History Records Found Additional Source Comments Source Comments (unrecognize d section and content) In the event this informatio n is protected by the Federal Confidentiality of Alcohol and Drug Abuse Patient Records regulations: The Federal rules restrict any use of the information to criminally investigate or prosecute any alcohol or drug abuse patient.[facility] event this information is protected by the Federal Confidentiality of Alcohol and Drug Abuse Patient Records regulations: The Federal rules restrict any use of the information to criminally investigate or prosecute any alcohol or drug abuse patient.[facility] the event this information is protected by the Federal Confidentiality of Alcohol and Drug Abuse Patient Records regulations: The Federal rules restrict any use of the information to criminally investigate or prosecute any alcohol or drug abuse patient.[facility] the event this information is protected by the Federal Confidentiality of Alcohol and Drug Abuse Patient Records regulations: The Federal rules restrict any use of the information to criminally investigate or prosecute any alcohol or drug abuse patient.[facility] the event this information is protected by the Federal Confidentiality of Alcohol and Drug Abuse Patient Records regulations: The Federal rules restrict any use of the information to criminally investigate or prosecute any alcohol or drug abuse patient.[facility] the event this information is protected by the Federal Confidentiality of Alcohol and Drug Abuse Patient Records regulations: The Federal rules restrict any use of the information to criminally investigate or prosecute any alcohol or drug abuse patient.[facility] the event this information is protected by the Federal Confidentiality of Alcohol and Drug Abuse Patient Records regulations: The Federal rules restrict any use of the information to criminally investigate or prosecute any alcohol or drug abuse patient.[facility] the event this information is protected by the Federal Confidentiality of Alcohol and Drug Abuse Patient Records regulations: The Federal rules restrict any use of the information to criminally investigate or prosecute any alcohol or drug abuse patient.[facility] the event this information is protected by the Federal Confidentiality of Alcohol and Drug Abuse Patient Records regulations: The Federal rules restrict any use of the information to criminally investigate or prosecute any alcohol or drug abuse patient.[facility] the event this information is protected by the Federal Confidentiality of Alcohol and Drug Abuse Patient Records regulations: The Federal rules restrict any use of the information to criminally investigate or prosecute any alcohol or drug abuse patient.[facility] the event this information is protected by the Federal Confidentiality of Alcohol and Drug Abuse Patient Records regulations: The Federal rules restrict any use of the information to criminally investigate or prosecute any alcohol or drug abuse patient.[facility] the event this information is protected by the Federal Confidentiality of Alcohol and Drug Abuse Patient Records regulations: The Federal rules restrict any use of the information to criminally investigate or prosecute any alcohol or drug abuse patient.[facility] the event this information is protected by the Federal Confidentiality of Alcohol and Drug Abuse Patient Records regulations: The Federal rules restrict any use of the information to criminally investigate or prosecute any alcohol or drug abuse patient.[facility] the event this information is protected by the Federal Confidentiality of Alcohol and Drug Abuse Patient Records regulations: The Federal rules restrict any use of the information to criminally investigate or prosecute any alcohol or drug abuse patient.[facility] the event this information is protected by the Federal Confidentiality of Alcohol and Drug Abuse Patient Records regulations: The Federal rules restrict any use of the information to criminally investigate or prosecute any alcohol or drug abuse patient.[facility] the event this information is protected by the Federal Confidentiality of Alcohol and Drug Abuse Patient Records regulations: The Federal rules restrict any use of the information to criminally investigate or prosecute any alcohol or drug abuse patient.[facility] the event this information is protected by the Federal Confidentiality of Alcohol and Drug Abuse Patient Records regulations: The Federal rules restrict any use of the information to criminally investigate or prosecute any alcohol or drug abuse patient.[facility] the event this information is protected by the Federal Confidentiality of Alcohol and Drug Abuse Patient Records regulations: The Federal rules restrict any use of the information to criminally investigate or prosecute any alcohol or drug abuse patient.[facility] the event this information is protected by the Federal Confidentiality of Alcohol and Drug Abuse Patient Records regulations: The Federal rules restrict any use of the information to criminally investigate or prosecute any alcohol or drug abuse patient.[facility] the event this information is protected by the Federal Confidentiality of Alcohol and Drug Abuse Patient Records regulations: The Federal rules restrict any use of the information to criminally investigate or prosecute any alcohol or drug abuse patient.[facility] the event this information is protected by the Federal Confidentiality of Alcohol and Drug Abuse Patient Records regulations: The Federal rules restrict any use of the information to criminally investigate or prosecute any alcohol or drug abuse patient.[facility] the event this information is protected by the Federal Confidentiality of Alcohol and Drug Abuse Patient Records regulations: The Federal rules restrict any use of the information to criminally investigate or prosecute any alcohol or drug abuse patient.[facility] the event this information is protected by the Federal Confidentiality of Alcohol and Drug Abuse Patient Records regulations: The Federal rules restrict any use of the information to criminally investigate or prosecute any alcohol or drug abuse patient.[facility] the event this information is protected by the Federal Confidentiality of Alcohol and Drug Abuse Patient Records regulations: The Federal rules restrict any use of the information to criminally investigate or prosecute any alcohol or drug abuse patient.[facility] the event this information is protected by the Federal Confidentiality of Alcohol and Drug Abuse Patient Records regulations: The Federal rules restrict any use of the information to criminally investigate or prosecute any alcohol or drug abuse patient.[facility] the event this information is protected by the Federal Confidentiality of Alcohol and Drug Abuse Patient Records regulations: The Federal rules restrict any use of the information to criminally investigate or prosecute any alcohol or drug abuse patient.[facility] the event this information is protected by the Federal Confidentiality of Alcohol and Drug Abuse Patient Records regulations: The Federal rules restrict any use of the information to criminally investigate or prosecute any alcohol or drug abuse patient.[facility] the event this information is protected by the Federal Confidentiality of Alcohol and Drug Abuse Patient Records regulations: The Federal rules restrict any use of the information to criminally investigate or prosecute any alcohol or drug abuse patient.[facility] the event this information is protected by the Federal Confidentiality of Alcohol and Drug Abuse Patient Records regulations: The Federal rules restrict any use of the information to criminally investigate or prosecute any alcohol or drug abuse patient.[facility] the event this information is protected by the Federal Confidentiality of Alcohol and Drug Abuse Patient Records regulations: The Federal rules restrict any use of the information to criminally investigate or prosecute any alcohol or drug abuse patient.[facility] the event this information is protected by the Federal Confidentiality of Alcohol and Drug Abuse Patient Records regulations: The Federal rules restrict any use of the information to criminally investigate or prosecute any alcohol or drug abuse patient.[facility] the event this information is protected by the Federal Confidentiality of Alcohol and Drug Abuse Patient Records regulations: The Federal rules restrict any use of the information to criminally investigate or prosecute any alcohol or drug abuse patient.TrihealthIn the event this information is protected by the Federal Confidentiality of Alcohol and Drug Abuse Patient Records regulations: The Federal rules restrict any use of the information to criminally investigate or prosecute any alcohol or drug abuse patient.TrihealthIn the event this information is protected by the Federal Confidentiality of Alcohol and Drug Abuse Patient Records regulations: The Federal rules restrict any use of the information to criminally investigate or prosecute any alcohol or drug abuse patient.TrihealthIn the event this information is protected by the Federal Confidentiality of Alcohol and Drug Abuse Patient Records regulations: The Federal rules restrict any use of the information to criminally investigate or prosecute any alcohol or drug abuse patient.TrihealthIn the event this information is protected by the Federal Confidentiality of Alcohol and Drug Abuse Patient Records regulations: The Federal rules restrict any use of the information to criminally investigate or prosecute any alcohol or drug abuse patient.TrihealthIn the event this information is protected by the Federal Confidentiality of Alcohol and Drug Abuse Patient Records regulations: The Federal rules restrict any use of the information to criminally investigate or prosecute any alcohol or drug abuse patient.TrihealthIn the event this information is protected by the Federal Confidentiality of Alcohol and Drug Abuse Patient Records regulations: The Federal rules restrict any use of the information to criminally investigate or prosecute any alcohol or drug abuse patient.TrihealthIn the event this information is protected by the Federal Confidentiality of Alcohol and Drug Abuse Patient Records regulations: The Federal rules restrict any use of the information to criminally investigate or prosecute any alcohol or drug abuse patient.TrihealthIn the event this information is protected by the Federal Confidentiality of Alcohol and Drug Abuse Patient Records regulations: The Federal rules restrict any use of the information to criminally investigate or prosecute any alcohol or drug abuse patient.TrihealthIn the event this information is protected by the Federal Confidentiality of Alcohol and Drug Abuse Patient Records regulations: The Federal rules restrict any use of the information to criminally investigate or prosecute any alcohol or drug abuse patient.TrihealthIn the event this information is protected by the Federal Confidentiality of Alcohol and Drug Abuse Patient Records regulations: The Federal rules restrict any use of the information to criminally investigate or prosecute any alcohol or drug abuse patient.TrihealthIn the event this information is protected by the Federal Confidentiality of Alcohol and Drug Abuse Patient Records regulations: The Federal rules restrict any use of the information to criminally investigate or prosecute any alcohol or drug abuse patient.TrihealthIn the event this information is protected by the Federal Confidentiality of Alcohol and Drug Abuse Patient Records regulations: The Federal rules restrict any use of the information to criminally investigate or prosecute any alcohol or drug abuse patient.TrihealthIn the event this information is protected by the Federal Confidentiality of Alcohol and Drug Abuse Patient Records regulations: The Federal rules restrict any use of the information to criminally investigate or prosecute any alcohol or drug abuse patient.TrihealthIn the event this information is protected by the Federal Confidentiality of Alcohol and Drug Abuse Patient Records regulations: The Federal rules restrict any use of the information to criminally investigate or prosecute any alcohol or drug abuse patient.TrihealthIn the event this information is protected by the Federal Confidentiality of Alcohol and Drug Abuse Patient Records regulations: The Federal rules restrict any use of the information to criminally investigate or prosecute any alcohol or drug abuse patient.[facility] Care Teams (unrecognized sec tion and content) Team Status: Active Member Role Status Dates Dr. Ian Padron , DO Family Provider Active Denise Tirado , DO Primary Care Provider Active Team Status: Inactive Member Role Status Dates Denise Tirado , DO Primary Care Provider, Referring Provider Active Dr. Espinoza Vargas MD Attending Provider Active Team Status: Inactive Member Role Status Dates Denise Tirado , DO Primary Care Provider, Attending Provider Active Team Status: Active Member Role Status Dates Denise Tirado , DO Primary Care Provider Active Dr. Espinoza Vargas MD Attending Provider Active Team Status: Active Member Role Status Dates Denise Tirado DO Primary Care Provider Active Layla Worthy Attending Provider Active Team Status: Inactive Member Role Status Dates Denise Tirado DO Primary Care Provider Active Dr. Espinoza Vargas MD Attending Provider Active Team Status: Inactive Member Role Status Dates Denise Tirado DO Primary Care Provider Active Dr. Espinoza Vargas MD Attending Provider, Referring Provider Active Team Status: Active Member Role Status Dates Denise Tirado DO Primary Care Provider Active Dr. Espinoza Vargas MD Attending Provid er, Referring Provider, Other Provider Active Team Status: Inactive Member Role Status Dates Denise Tirado DO Primary Care Provider, Referring Provider Active Layla Jarvis PA, PA Attending Provider Active Team Status: Inactive Member Role Status Dates Denise Tirado DO Primary Care Provider Active Dr. Esteban Oconnor MD Attending Provider, Emergency Pro vider Active Team Status: Inactive Member Role Status Dates Denise Tirado DO Primary Care Provider Active Dr. Moreno Craig MD Attending Provider, Emergency Provider Active Team Status: Inactive Member Role Status Dates Denise Tirado DO Primary Care Provider Active Dr. Espinoza Montero MD Emergency Provider Active Team Status: Inactive Member Role Status Dates Denise Tirado DO Primary Care Provider Active Dr. Espinoza Montero MD Attending Provider, Emergency Pr ovider Active Team Status: Inactive Member Role Status Dates Denise Tirado DO Primary Care Provider Active Dr. Xavier Maloney , DO Emergency Provider Active Team Status: Inactive Member Role Status Dates Denise Tirado DO Primary Care Provider Active Dr. Chase Goode MD Emergency Provider Active Credit Advisor Relationship Specialty Start Date End Date Denise Tirado DO [address] [address] PCP - General Family Medicine 12/07/22 Team Status: Inactive Member Role Status Dates Denise Tirado DO Primary Care Provider, Referring Provider Active Estephania Samuels ROTARY MACHINE OPERATOR, ROTARY MACHINE OPERATOR-C Attending Provider Active Team Status: Active Member Role Status Dates Denise M Celestino , DO Primary Care Provider Active Estephania Samuels ROTARY MACHINE OPERATOR, ROTARY MACHINE OPERATOR-C Referring Provider, Other Provi angely Active Dr. Gabriel Camacho MD Attending Provider Active Team Status: Active Member Role Status Dates Denise Tirado , DO Primary Care Provider Active Estephania Samuels ROTARY MACHINE OPERATOR, ROTARY MACHINE OPERATOR-C Attending Provider Active Team Status: Inactive Member Role Status Dates Denise Tirado , DO Primary Care Provider Active Estephania Samuels ROTARY MACHINE OPERATOR, ROTARY MACHINE OPERATOR-C Attending Provider, Referring P rovider Active Team Status: Inactive Member Role Status Dates Denise Roberts Celestino , DO Primary Care Provider Active Dr. Xaiver Maloney , Attending Provider, Emergency P rovider Active Team Status: Inactive Member Role Status Dates Denise Roberts Celestino , DO Primary Care Provider Active Dr. Chase Goode MD Attending Provider, Emergency Provi angely Active Credit Advisor Relationship Specialty Start Date End Date Denise Tirado [address] [place] [address] PCP - General Family Medicine 12/07/22 Credit Advisor Relationship Specialty Start Date End Date Denise Tirado [address] [place] [address] PCP - General Family Medicine 12/07/22 Credit Advisor Relationship Specialty Start Date End Date Denise Tirado [address] [place] [address] PCP - General Family Medicine 12/07/22 Team Status: Inactive Member Role Status Dates Denise Tirado , Primary Care Provider Active Estephania Samuels ROTARY MACHINE OPERATOR, ROTARY MACHINE OPERATOR-C Attending Provider Active Credit Advisor Relationship Specialty Start Date End Date Denise TiradoDO [address] [place] [address] PCP - General Family Medicine 12/07/22 Credit Advisor Relationship Specialty Start Date End Date Denise Tirado, DO [address] [place] [address] PCP - General Family Medicine 12/07/22 Credit Advisor Relationship Specialty Start Date End Date Denise Tirado, DO [address] [place] [address] PCP - General Family Medicine 12/07/22 Credit Advisor Relationship Specialty Start Date End Date Celestino Denise Roberts, DO [address] [place] [address] PCP - General Family Medicine 12/07/22 Credit Advisor Relationship Specialty Start Date End Date Celestino Denise Roberts, DO [address] [place] [address] PCP - General Family Medicine 12/07/22 Credit Advisor Relationship Specialty Start Date End Date Neela Lino MD [address] [place] [address] PCP - General Family Medicine 09/21/23 Credit Advisor Relationship Specialty Start Date End Date Neela Lino MD [address] [place] [address] PCP - General Family Medicine 09/21/23 Credit Advisor Relationship Specialty Start Date End Date Neela Lino MD [address] [place] [address] PCP - General Family Medicine 09/21/23 Credit Advisor Relationship Specialty Start Date End Date Neela Lino MD [address] [place] [address] PCP - General Family Medicine 09/21/23 Credit Advisor Relationship Specialty Start Date End Date Neela Lino MD [address] [place] [address] PCP - General Family Medicine 09/21/23 Credit Advisor Relationship Specialty Start Date End Date Neela Lino MD [address] [place] [address] PCP - General Family Medicine 09/21/23 Credit Advisor Relationship Specialty Start Date End Date Neela Lino MD [address] [place] [address] PCP - General Family Medicine 09/21/23 Credit Advisor Relationship Specialty Start Date End Date Neela Lino MD [address] [place] [address] PCP - General Family Medicine 09/21/23 Credit Advisor Relationship Specialty Start Date End Date Neela Lino MD [address] [place] [address] PCP - General Family Medicine 09/21/23 Credit Advisor Relationship Specialty Start Date End Date Neela Lino MD [address] [place] [address] PCP - General Family Medicine 09/21/23 Credit Advisor Relationship Specialty Start Date End Date Neela Lino MD [address] [place] [address] PCP - General Family Medicine 09/21/23 Credit Advisor Relationship Specialty Start Date End Date Neela Lino MD [address] [place] [address] PCP - General Family Medicine 09/21/23 Credit Advisor Relationship Specialty Start Date End Date Neela Lino MD [address] [place] [address] PCP - General Family Medicine 09/21/23 Credit Advisor Relationship Specialty Start Date End Date Neela Lino MD [address] [place] [address] PCP - General Family Medicine 09/21/23 Credit Advisor Relationship Specialty Start Date End Date Neela Lino MD [address] [place] [address] PCP - General Family Medicine 09/21/23 Credit Advisor Relationship Specialty Start Date End Date Neela Lino MD [address] [place] [address] PCP - General Family Medicine 09/21/23 Credit Advisor Relationship Specialty Start Date End Date Neela Lino MD [address] [place] [address] PCP - General Family Medicine 09/21/23 Credit Advisor Relationship Specialty Start Date End Date Neela Lino MD [address] [place] [address] PCP - General Family Medicine 09/21/23 Credit Advisor Relationship Specialty Start Date End Date Neela Lino MD [address] [facility] [address] [place], [place] [address] PCP - General Family Medicine 09/21/23 Credit Advisor Relationship Specialty Start Date End Date Neela Lino MD [address] [facility] [address] [place], [place] [address] PCP - General Family Medicine 09/21/23 Credit Advisor Relationship Specialty Start Date End Date Neela Lino MD [address] [facility] [address] [place], [place] [address] PCP - General Family Medicine 09/21/23 Credit Advisor Relationship Specialty Start Date End Date Neela Lino MD [address] [facility] [address] [place] [address] PCP - General Family Medicine 09/21/23 Goals (unrecognized section and content) Goals may be documented in a n alternate sectionGoals may be documented in an alternate sectionGoals may be documented in an alternate sectionGoals may be documented in an alternate sectionGoals may be documented in an alternate sectionGoals may be documented in an alternate sectionGoals may be documented in an alternate sectionGoals may be documented in an alternate section Reason for Visit (unrecogniz ed section and content) Reason Comments Consult Reason Comments New Patient Reason Comments Results Reason Comments metoprolol PA Reason Comments Radiology NM Specialty Diagnoses / Procedures Referred By Dennis t Referred To Contact MOLECULAR & FUNCTIONAL IMAGING Diagnoses Nausea Dyspepsia Procedures NM GASTRIC EMPTYING SOLID GASTRIC EMPTYING STUDY Hemalatha Anthony PA-C [address] [place] [address] Molecular & Functional Imaging [address] [place] [address] Referral ID Status Reason Start Date Expiration Date V isits Requested Visits Authorized [id number] Closed Auto-Generate d Referral 01/09/2023 02/08/2024 1 1 Reason Comments Follow Up Reason Comments New Patient EGD consult Specialty Diagnoses / Procedures Referred By Contac t Referred To Contact Diagnoses Consult for EGD Procedures [place] [address] Referral ID Status Reason Start Date Expiration Date Visits Requested Visits Authorized [id number] Authorized Patient Cleared - Qualified 100% FAS 09/21/2023 12/20/2023 99 99 Specialty Diagnoses / Procedures Referred By Contac t Referred To Contact Diagnoses Consult for EGD Procedures Consult for EGD Self [facility] [address] [place] [address] Referral ID Status Reason Start Date Expiration Date V isits Requested Visits Authorized [id number] Closed Patient Cleared - Qualified 100% FAS 09/21/2023 12/20/2023 99 99 Reason Comments Patient Update Reason Comments Refill Request Reason Comments Follow Up EGD Reason Comments New Patient HBC ( [place] ) Specialty Diagnoses / Procedures Referred By [...] INTERPRETATION [] ESOPHAGEAL MANOMETRY [facility] [address] [place] [address] Referral ID Status Reason Start Date Expiration Date Visits Re quested Visits Authorized [id number] 1 1 Reason Comments Patient Question Reason Comments Sore Throat ST, [place], nausea, iris estion, bodyaches and diarrhea x 1 day Reason Onset Date Comments Refill Request 02/14/2024 Reason Comments Follow Up Esophageal monometry testing Reason Comments Follow Up 6 month Reason Comments Back Pain Back pain x 2 days Reason Comments Consult hernia Reason Comments Consult surgery on 07/30/24 a t [place] Reason Comments Patient Question Medication Request Reason Comments Schedule Surgery Reason Comments Appointment Request Outside Medical Records Reason Comments post op pain Reason Comments Post Op States incision has opened up surgery 07/30 gallbladder removed Reason Comments Patient Question Return to work lette r Reason Comments Follow Up Redness to umbilicus 7 weeks after gallbladder removal Reason Comments Consult Here for abdominal p ain, Dr Ferreira to see Reason Comments Follow Up Scheduled Active and Recently Administ ered Medications (unrecognized section and content) Medication Order 02/04/2024 02/05/2024 02/06/2024 metoclopramide HCl 5 mg injection (REGLAN) (COMPLETED) 5 mg, INTRAVENOUS, ONCE, 1 dose, On Sun02/06/24 at 1200, Pharmacist may modify dose per [facility] [place] dose optimization consult agreement: Yes 1201 (Given [...] - Enteral, Recovery or Phase I (only) INFORMATION SOURCE (unrecogn ized section and content) DATE CREATED AUTHOR 02/19/2024 [facility] DATE CREATED AUTHOR AUTHOR'S ORGANIZ ATION 08/04/2024 [facility] DATE CREATED AUTHOR AUTHOR'S ORGANIZ ATION 10/19/2024 [facility] DATE CREATED AUTHOR AUTHOR'S ORGANIZ ATION 10/23/2024 [facility] FOR RECORDS PERTAINING TO PATIENTS WHO ARE [...] BE BASED ON THE PRIMARY CLINICAL RECORDS. [employer] provides no warranty or guarantee of the accuracy or completeness of information in this document.
--- NOTE | 2024-10-25 10:50 | RAD_ITS ---
PROCEDURE: ABDOMEN SINGLE VIEW 10/25/2024 REASON FOR EXAM: DAY 5 SITZ MARKER TECHNIQUE: ABDOMEN SINGLE VIEW COMPARISON: Abdominal radiographs 10/23/2024 and 09/25/2024 FINDINGS: Moderate colonic stool burden, similar to prior. No Sitz markers identified. Nonobstructive bowel gas pattern. Osseous structures are unremarkable. RAD/Abdomen Single View IMPRESSION: Unremarkable exam. Reading Location: [id number]
== END | disposition home or self-care (01) ==
LOC: RAD 10:41
PROVIDERS: PCP Family Medicine
DX: Z00.00 Encounter for general adult medical examination without abnormal findings (principal)
CPT/HCPCS: 74018

== ENCOUNTER 2024-11-12 08:16 | Emergency (ER) | payer OTHER, SELFPAY ==
[2024-11-12 08:16] VITALS: BP 138/98; PULSE 80; RESP 16; TEMP 37.1; O2SAT 100; BMI 41.5
--- NOTE | 2024-11-12 08:25 | EX.ED.DYSGE1 ---
HPI History of Present Illness Chief Complaint: Nausea/Vomiting Narrative Narrative: 24-year-old female presents with nausea and vomiting that she has had for the last 3 days. States her symptoms began a few days ago, and seem to be progressing. Over the last 24 hours she has vomited multiple times, bilious material and dry heaving but no hematemesis. She has not had a bowel movement today. She has past medical history of POTS which she states has been flaring up. [facility], and was given Phenergan. She has been taking Zofran which she has a prescription for for her POTS, but states it is ineffective. She denies any fevers or chills, no diarrhea, she does have abdominal pain in the epigastrium to right upper quadrant. However, she states she felt like this 3 months ago and had a cholecystectomy performed by Dr. Bai at [facility]. She denies any marijuana use, no alcohol use. [facility] Medical History Nausea and vomiting Postural orthostatic tachycardia syndrome [POTS] Anxiety Home Medications ?Medication ?Instructions ?Recorded ?Last Taken ?Type mecobalamin (vitamin B12) 1,000 2,000 mcg PO DAILY 05/24/23 Unknown History mcg chewable tablet azelastine 137 mcg (0.1 %) nasal 2 spray intranasal BID #30 mL 02/13/24 Unknown Rx spray metoprolol succinate 50 mg 50 mg PO QDAY #90 tabs 02/26/24 Unknown Rx tablet,extended release 24 hr L norgest/E estradiol-E estrad See Rx Instructions PO .COMPLEX 03/10/24 Unknown History 0.15 mg-30 mcg (84)/10 mcg(7) tabs,3mos (Jaimiess) cetirizine 10 mg capsule (Zyrtec) 10 mg PO QDAY PRN allergy symptoms 03/10/24 Unknown History sertraline 100 mg tablet 100 mg PO QDAY #30 tabs 05/06/24 Unknown Rx viloxazine 200 mg capsule,extended 400 mg (2 x 200 mg) PO QDAY #60 05/06/24 Unknown Rx release 24 hr (Qelbree) caps vonoprazan 10 mg tablet 10 mg PO QDAY #30 tabs 06/24/24 Unknown Rx dicyclomine 20 mg tablet 20 mg PO TID PRN abdominal pain 10 07/20/24 Unknown Rx days #30 tabs cholecalciferol (vitamin D3) 1,250 1,250 mcg PO QWEEK 10/16/24 Unknown History mcg (50,000 unit) tablet trazodone 100 mg tablet 100 mg PO QHS PRN insomnia #30 tabs 10/16/24 Unknown Rx ondansetron 4 mg disintegrating 4 mg PO Q12H PRN nausea and 10/20/24 Unknown Rx tablet vomiting #30 tabs lubiprostone 8 mcg capsule 8 mcg PO BID constipation, CIC #60 10/30/24 Unknown Rx caps promethazine 25 mg tablet 25 mg PO TID PRN nausea and 11/11/24 Unknown Rx vomiting #10 tabs Allergy/AdvReac Type Severity Reaction Status Date / Time methocarbamol Allergy Intermediate Rash Verified 11/12/24 08:17 cyclobenzaprine Allergy Mild Rash Verified 11/12/24 08:17 tizanidine Allergy Mild lathargic Verified 11/12/24 08:17 Family History Other Alcoholism Arthritis Cancer Diabetes Hypertension Obesity Seizures Surgical History S/P cholecystectomy Social History household members: significant other Smoking Status: Never smoker alcohol intake: current alcohol intake frequency: holidays/special occasions only substance use type: does not use caffeine: Yes (x2 week) ROS ROS ED ROS Narrative Review of systems positive for nausea and vomiting multiple times, no hematemesis. No fevers or chills. Mild epigastric to right upper quadrant pain. No dysuria or hematuria, no exacerbating or alleviating factors. EXAM Physical Exam Narrative Exam Narrative: Afebrile. Vital signs noted. Nontoxic-appearing. Cardiovascular examination reveals regular rate and rhythm, no tachycardia, lungs clear to auscultation bilaterally. Abdomen is soft with minimal tenderness to palpation in the epigastrium with positive bowel sounds. No guarding or rebound. Neurological examination nonfocal, nonlateralizing. Const Vital Signs: 11/12/24 08:16 Temperature 98.8 F Temperature Source Oral Pulse Rate 80 Respiratory Rate 16 Blood Pressure 138/98 H Blood Pressure Mean 111 Pulse Ox 100 Oxygen Delivery Method Room Air MDM MDM MDM Narrative Medical decision making narrative: The differential diagnosis includes but not limited to gastritis versus nonspecific abdominal pain versus pancreatitis. As she has had cholecystectomy, I doubt any gallbladder pathology. I do not feel that she requires CT imaging currently. In review of her prior problem list she has had epigastric abdominal pain in the past but this may have been before her cholecystectomy. I will obtain basic laboratory work to look for dehydration. She will be bolused normal saline and administered Zofran IV. Reviewed her laboratory work and she has normal white count of 6.0, hemoglobin 12.8, hematocrit 40.2 and platelet count normal at 321. CMP is grossly unremarkable with normal sodium, normal potassium, LFTs normal. Lipase normal at 15 so I doubt acute pancreatitis. Serum is negative. Upon repeat examination, she states she feels no different, no better or no worse. However, I do not feel that she requires any CT imaging. Her pain is in the epigastrium to her right upper quadrant. She may have more of a gastritis or peptic ulcer disease. In review of her prior outpatient record, she was given promethazine yesterday. Hence, she has Zofran and Phenergan at home which she can take. I feel she can be discharged to follow-up with her primary care provider as needed. She was told to give her stomach a rest for the next 12 to 24 hours as she has been rehydrated with IV fluids. She will start a clear liquid diet and advance as tolerated. She states that they took her off her proton pump inhibitor, but she was told she may need to restart it [id number]. Return instructions to the emergency department were reviewed. Disposition is discharged home in stable condition. History & Record Review Discussion w/independent historian: Patient Additional record(s) reviewed:: Prior outpatient record (Seen in our clinic and given promethazine) Lab Data Attestation: I reviewed the patient's lab results. Labs: Laboratory Results - last 24 hr 11/12/24 08:39 WBC 6.0 RBC 4.72 Hgb 12.8 Hct 40.2 MCV 85.2 MCH 27.1 MCHC 31.8 L RDW Std Deviation 40.7 RDW Coeff of Floridalma 13.1 Plt Count 321 MPV 10.0 Immature Gran % (Auto) 0.300 Neut % (Auto) 53.8 Lymph % (Auto) 35.2 [place] % (Auto) 8.8 Eos % (Auto) 1.2 Baso % (Auto) 0.7 Absolute Neuts (auto) 3.2 Absolute Lymphs (auto) 2.11 Nucleated RBC % 0 Sodium 140 Potassium 3.9 Chloride 103 Carbon Dioxide 23.8 Anion Gap 13 BUN 15 Creatinine 0.91 Estim Creat Clear Calc 108.22 Est GFR (MDRD) Non-Af 91 BUN/Creatinine Ratio 16.4 Glucose 88 Calcium 9.1 Total Bilirubin 0.42 AST 20 ALT 16 Alkaline Phosphatase 97 Total Protein 7.0 Albumin 4.1 Globulin 2.9 Albumin/Globulin Ratio 1.4 Lipase 15 Serum , Qual NEGATIVE Discharge Plan Triage Chief Complaint: Nausea/Vomiting ED Provider: Kwabena Peraza Dx/Rx/DC Orders Clinical Impression: Nausea and vomiting, Epigastric abdominal pain Instructions: ED Abdominal Pain Unkn Cause Fem, ED Gastritis Ulcer No Abx Prescriptions: No Action mecobalamin (vitamin B12) 1,000 mcg tablet,chewable 2,000 mcg PO DAILY metoprolol succinate 50 mg tablet extended release 24 hr 50 mg PO QDAY Qty: 90 3RF L norgest/e.estradiol-e.estrad [Jaimiess] 0.15 mg-30 mcg (84)/10 mcg (7) tablets,dose pack,3 month See Rx Instructions PO .COMPLEX Rx Instructions: take 1 tablet daily following the order on blister card(s) PO Zyrtec 10 mg capsule 10 mg PO QDAY PRN (Reason: allergy symptoms) sertraline 100 mg tablet 100 mg PO QDAY Qty: 30 1RF Qelbree 200 mg capsule,extended release 24hr 400 mg PO QDAY Qty: 60 1RF vonoprazan 10 mg tablet 10 mg PO QDAY Qty: 30 2RF ondansetron 4 mg tablet,disintegrating 4 mg PO Q12H PRN (Reason: nausea and vomiting) Qty: 30 1RF cholecalciferol (vitamin D3) 1,250 mcg (50,000 unit) tablet 1,250 mcg PO QWEEK trazodone 100 mg tablet 100 mg PO QHS PRN (Reason: insomnia) Qty: 30 1RF promethazine 25 mg tablet 25 mg PO TID PRN (Reason: nausea and vomiting) Qty: 10 0RF azelastine 137 mcg (0.1 %) spray,non-aerosol 2 spray intranasal BID Qty: 30 0RF Rx Instructions: administer into each nostril dicyclomine 20 mg tablet 20 mg PO TID PRN (Reason: abdominal pain) 10 Days Qty: 30 0RF lubiprostone 8 mcg capsule 8 mcg PO BID Qty: 60 1RF Primary Care Provider: Karthik Lino Referrals: Karthik Lino MD [Primary Care Provider] - 3-5 Days if not improving Activity Restrictions/Additional Instructions: Give your stomach a rest for the next 12 to 24 hours. Start a clear liquid diet and advance as tolerated. Return with new or worsening symptoms. Follow-up with your primary care provider. Zofran and/or promethazine as needed for nausea and vomiting. Print Language: Latvian Disposition Disposition: Home, Self Care
[2024-11-12] MEDS: 0.9% Normal Saline (1000mL) 1,000 ML 999 ML IV (08:41)
[2024-11-12 09:00] LABS: Hematocrit 40.2 % (37-47); Hemoglobin 12.8 g/dL (12.0-15.0); Immature Granulocytes Count 0.020 X10^3/uL (0.0-0.0); Mean Corp Hgb Conc 31.8 g/dL (32-36); Mean Corpuscular Volume 85.2 fL (81-99); Mean Platelet Vol. 10.0 fl (6.2-12.0); NRBC Flagged by Analyzer 0 % (0-5); Platelet Count 321 K/mm3 (150-450); RBC Distribution Width CV 13.1 % (11.6-14.6); RBC Distribution Width SD 40.7 fl (35.1-43.9); Red Blood Count 4.72 M/mm3 (4.2-5.4); White Blood Count 6.0 K/mm3 (4.4-11.0)
[2024-11-12 09:08] LABS: Internal QC Validated? YES +Cl - CLEAR BKGD; Pregnancy, Serum, hCG Quali. NEGATIVE Negative; Record Kit Lot#, Serum Preg. 0000962302
[2024-11-12 09:23] LABS: AST(SGOT) 20 U/L (<=31); Alanine Aminotransfer ALT/SGPT 16 U/L (<=34); Albumin, Serum 4.1 g/dL (3.5-5.0); Alkaline Phosphatase 97 U/L (35-104); Anion Gap 13 (5-15); BUN 15 mg/dL (4-19); BUN/Creat Ratio 16.4 RATIO (10-20); Calcium,Total 9.1 mg/dL (7.6-11.0); Carbon Dioxide 23.8 mmol/L (21.0-32.0); Chloride 103 mmol/L (98-108); Estimated Creatinine Clearance 108.22 ml/min (50-250); Globulin 2.9 g/dL (2.2-4.2); Glucose 88 mg/dL (70-99); Lipase 15 U/L (13-75); Potassium 3.9 mmol/L (3.3-5.1)
[2024-11-12 10:15] VITALS: BP 128/84; PULSE 76; RESP 16; TEMP 36.7; O2SAT 98
== END 2024-11-12 10:16 | disposition home or self-care (01) ==
PROVIDERS: Emergency Provider Emergency Medicine; PCP Family Medicine; Visit Provider Emergency Medicine
DX: R11.2 Nausea with vomiting, unspecified (principal); R10.13 Epigastric pain; G90.A Postural orthostatic tachycardia syndrome [POTS]; Z90.49 Acquired absence of other specified parts of digestive tract; Z79.899 Other long term (current) drug therapy; F41.9 Anxiety disorder, unspecified
CPT/HCPCS: 80053; 83690; 84703; 85025; 96374; 99283; A4216; J2405

== ENCOUNTER → 2025-01-22 | Outpatient (CLI) | payer OTHER, SELFPAY ==
[2025-01-22 10:38] LABS: Hematocrit 40.1 % (37-47); Hemoglobin 13.3 g/dL (12.0-15.0); Immature Granulocytes Count 0.020 X10^3/uL (0.0-0.0); Mean Corp Hgb Conc 33.2 g/dL (32-36); Mean Corpuscular Volume 82.9 fL (81-99); Mean Platelet Vol. 9.9 fl (6.2-12.0); NRBC Flagged by Analyzer 0 % (0-5); Platelet Count 341 K/mm3 (150-450); RBC Distribution Width CV 14.1 % (11.6-14.6); RBC Distribution Width SD 42.9 fl (35.1-43.9); Red Blood Count 4.84 M/mm3 (4.2-5.4); White Blood Count 6.9 K/mm3 (4.4-11.0)
[2025-01-22 12:00] LABS: AST(SGOT) 24 U/L (<=31); Alanine Aminotransfer ALT/SGPT 16 U/L (<=34); Albumin, Serum 4.5 g/dL (3.5-5.0); Alkaline Phosphatase 123 U/L (35-104); Anion Gap 18 (5-15); BUN 13 mg/dL (4-19); BUN/Creat Ratio 15.0 RATIO (10-20); Calcium,Total 9.7 mg/dL (7.6-11.0); Carbon Dioxide 21.4 mmol/L (21.0-32.0); Chloride 100 mmol/L (98-108); Globulin 3.7 g/dL (2.2-4.2); Glucose 71 mg/dL (70-99); Lipase 16 U/L (13-75); Potassium 3.9 mmol/L (3.3-5.1)
== END | disposition home or self-care (01) ==
LOC: LAB 09:35
PROVIDERS: PCP Family Medicine; Referring Provider Student in an Organized Health Care Education/Training Program; Visit Provider Student in an Organized Health Care Education/Training Program
DX: R11.2 Nausea with vomiting, unspecified (principal)
CPT/HCPCS: 36415; 80053; 83690; 85025

== ENCOUNTER 2025-01-23 13:30 | Emergency (ER) | payer OTHER, SELFPAY ==
[2025-01-23 13:32] VITALS: BP 144/86; PULSE 104; RESP 16; TEMP 37.3; O2SAT 99; BMI 41.2
[2025-01-23 15:09] LABS: Hematocrit 43.3 % (37-47); Hemoglobin 13.9 g/dL (12.0-15.0); Immature Granulocytes Count 0.020 X10^3/uL (0.0-0.0); Mean Corp Hgb Conc 32.1 g/dL (32-36); Mean Corpuscular Volume 84.1 fL (81-99); Mean Platelet Vol. 9.8 fl (6.2-12.0); NRBC Flagged by Analyzer 0 % (0-5); Platelet Count 379 K/mm3 (150-450); RBC Distribution Width CV 13.9 % (11.6-14.6); RBC Distribution Width SD 43.0 fl (35.1-43.9); Red Blood Count 5.15 M/mm3 (4.2-5.4); White Blood Count 9.6 K/mm3 (4.4-11.0)
[2025-01-23 15:17] LABS: Internal QC Validated? YES +Cl - CLEAR BKGD; Pregnancy, Serum, hCG Quali. NEGATIVE Negative; Record Kit Lot#, Serum Preg. 0000980607
[2025-01-23 15:42] LABS: AST(SGOT) 26 U/L (<=31); Alanine Aminotransfer ALT/SGPT 15 U/L (<=34); Albumin, Serum 4.7 g/dL (3.5-5.0); Alkaline Phosphatase 131 U/L (35-104); Anion Gap 21 (5-15); BUN 11 mg/dL (4-19); BUN/Creat Ratio 14.7 RATIO (10-20); Calcium,Total 9.8 mg/dL (7.6-11.0); Carbon Dioxide 19.0 mmol/L (21.0-32.0); Chloride 103 mmol/L (98-108); Estimated Creatinine Clearance 127.32 ml/min (50-250); Globulin 4.0 g/dL (2.2-4.2); Glucose 75 mg/dL (70-99); Lipase 12 U/L (13-75); Potassium 4.1 mmol/L (3.3-5.1)
[2025-01-23 16:44] VITALS: BP 136/77; PULSE 90; RESP 16; TEMP 37.1; O2SAT 100
--- NOTE | 2025-01-23 16:58 | EDS_ITS ---
HPI History of Present Illness Chief Complaint: Nausea/Vomiting Narrative Narrative: Patient is a 24-year-old female with a history of POTS presenting with persistent emesis and abdominal pain. - Reports 4 days of emesis, unable to retain food or fluids; emesis described as yellow with black specks, denies hematemesis. - Denies diarrhea; reports constipation. - Denies fever, chest pain, dyspnea, or cough. - Has experienced similar episodes since June, with this being the fourth occ urrence. - Recently evaluated by gastroenterology, underwent blood work yesterday; awaiting follow-up. - Reports worsening abdominal pain and migraines today. - Denies tobacco, alcohol, or drug use. - History of cholecystectomy. - Current medications include metoprolol and oral contraceptives. [facility], [facility] Medical History Nausea and vomiting Postural orthostatic tachycardia syndrome [POTS] Anxiety Home Medications ?Medication ?Instructions ?Recorded ?Last Taken ?Type mecobalamin (vitamin B12) 1,000 2,000 mcg PO DAILY 12/07 Unknown History mcg chewable tablet azelastine 137 mcg (0.1 %) nasal 2 spray intranasal BI D #30 mL 02/13/24 Unknown Rx spray metoprolol succinate 50 mg 50 mg PO QDAY #90 tabs 02/14 06/09 Unknown Rx tablet,extended release 24 hr L norgest/E estradiol-E estrad See Rx Instructions PO .COMPLEX 03/10/24 Unknown History 0.15 mg-30 mcg (84)/10 mcg(7) tabs,3mos (Jaimiess) cetirizine 10 mg capsule (Zyrtec) 10 mg PO QDAY PRN al lergy symptoms 03/10/24 Unknown History vonoprazan 10 mg tablet 10 mg PO QDAY #30 tabs 06/24 Unknown Rx cholecalciferol (vitamin D3) 1,250 1,250 mcg PO QWEEK 10/16/24 Unknown History mcg (50,000 unit) tablet ondansetron 4 mg disintegrating 4 mg PO Q12H PRN nause a and 10/20/24 Unknown Rx tablet vomiting #30 tabs lubiprostone 8 mcg capsule 8 mcg PO BID constipation, CIC #60 10/30/24 Unknown Rx caps promethazine 25 mg tablet 25 mg PO TID PRN nausea and 11/11/24 Unknown Rx vomiting #10 tabs trazodone 100 mg tablet 100 mg PO QHS PRN insomnia # 90 tabs 12/17/24 Unknown Rx naratriptan 2.5 mg tablet See Rx Instructions PO .COMP DAO 01/22/25 Unknown History scopolamine base 1 mg over 3 days 1 patch transdermal Q3D PRN nausea 01/22/25 Unknown Rx transdermal patch and vomiting #4 ea dicyclomine 20 mg tablet 20 mg PO TID PRN abdominal p ain 01/23/25 Unknown Rx #20 tabs ondansetron 4 mg disintegrating 4 mg PO Q6H PRN nausea and 01/23/25 Unknown Rx tablet vomiting #20 tabs Allergy/AdvReac Type Severity Reaction Status Date / Time methocarbamol Allergy Intermediate Rash Verified 01/23/25 13:33 cyclobenzaprine Allergy Mild Rash Verified 01/23/25 13:33 tizanidine Allergy Mild lathargic Verified 01/23/25 13:33 Family History Other Alcoholism Arthritis Cancer Diabetes Hypertension Obesity Seizures Surgical History S/P cholecystectomy Social History household members: significant other Smoking Status: Never smoker alcohol intake: current alcohol intake frequency: holidays/special occasions only substance use type: does not use caffeine: Yes (x2 week) ROS ROS ED ROS Narrative Constitutional: (+) cold intolerance, (-) fever Head: (+) headache Cardiovascular: (+) palpitations Respiratory: (-) shortness of breath Gastrointestinal: (+) vomiting, (+) abdominal pain, (+) constipation, (-) diarrhea, (-) hematemesis EXAM Physical Exam Narrative Exam Narrative: General: Head atraumatic, normocephalic. HEENT: No conjunctival injection. CV: Regular rhythm, no murmurs, gallops, or rubs. Resp: Clear to auscultation bilaterally. Abd: Soft, non-distended, right lower quadrant tenderness, epigastric tenderness. Skin: Warm, dry, intact. Const Vital Signs: 01/23/25 13:32 01/23/25 16:44 01/23/25 18:00 Temperature 99.1 F 98.7 F Temperature Source Oral Oral Pulse Rate 104 H 90 99 Respiratory Rate 16 16 16 Blood Pressure 144/86 H 136/77 H 138/86 H Blood Pressure Mean 105 96 103 Pulse Ox 99 100 100 Oxygen Delivery Method Room Air Room Air Room Air MDM MDM MDM Narrative Medical decision making narrative: Assessment: The patient is a 24-year-old female with PMH of POTS and history of cholecystectomy presenting for abdominal pain, nausea, and vomiting. Symptoms have recurred intermittently since June and worsened over the last four days with inability to tolerate oral intake. Differential diagnoses discussed include , viral gastroenteritis, GERD, appendicitis, bowel obstruction, and upper GI bleed. Negative urine test and unremarkable labs reduce concern for , upper GI bleed, or significant metabolic derangement. CT abdomen/pelvis reveals dilated bowel loops with fluid, suggestive of enteritis, and a normal appendix, making enteritis the most likely diagnosis. Diagnostics: - Labs: WBC 9.6 K/?L, Hgb 13.9 g/dL, Plt 379 K/?L, sodium 143 mEq/L, potassium 4.1 mEq/L, creatinine 0.7 mg/dL, AST 26 U/L, ALT 15 U/L, total bilirubin 0.65 mg/dL, lipase 12 U/L. - Urine test ? negative. - CT abdomen/pelvis with IV contrast: dilated bowel loops with fluid, suggestive of enteritis; appendix normal. Reevaluations: - Patient re-evaluated after diagnostic results; reports feeling improved and requests discharge. The results were discussed with the patient, who reported feeling better and expressed a desire to go home. She was advised to follow up with her financial sales associate in an outpatient setting and to use prescriptions for Bentyl and Zofran sent to her pharmacy. She was instructed to return if her symptoms worsen or if she has any concerns. The patient and her significant other, who was at the bedside, agreed with this plan. All questions and concerns were answered. She was discharged home in stable condition. Plan: - Administered IV fluids, Reglan, and Bentyl in the ED. - Prescriptions for Bentyl and Zofran sent to patient?s pharmacy. - Discharged home with instructions to follow up with gastroenterology and return for worsening pain, persistent vomiting, or new symptoms. - Patient and significant other agree with discharge plan and understand return precautions. Lab Data Labs: Laboratory Results - last 24 hr 01/23/25 14:42 WBC 9.6 RBC 5.15 Hgb 13.9 Hct 43.3 MCV 84.1 MCH 27.0 MCHC 32.1 RDW Std Deviation 43.0 RDW Coeff of Floridalma 13.9 Plt Count 379 MPV 9.8 Immature Gran % (Auto) 0.200 Neut % (Auto) 68.4 Lymph % (Auto) 23.8 [place] % (Auto) 6.8 Eos % (Auto) 0.5 Baso % (Auto) 0.3 Absolute Neuts (auto) 6.6 Absolute Lymphs (auto) 2.28 Nucleated RBC % 0 Sodium 143 Potassium 4.1 Chloride 103 Carbon Dioxide 19.0 L Anion Gap 21 H BUN 11 Creatinine 0.77 Estim Creat Clear Calc 127.32 Est GFR (MDRD) Non-Af 111 BUN/Creatinine Ratio 14.7 Glucose 75 Calcium 9.8 Total Bilirubin 0.65 AST 26 ALT 15 Alkaline Phosphatase 131 H Total Protein 8.6 H Albumin 4.7 Globulin 4.0 Albumin/Globulin Ratio 1.2 Lipase 12 L Serum , Qual NEGATIVE Radiography Diagnostic Testing: Clinical Impression(s) from Imaging Studies Abdomen/Pelvis CT 01/23/25 17:00 IMPRESSION: Dilated bowel loops with fluid may be suggestive of enteritis. Normal appendix. Reading Location: [facility] Discharge Plan Triage Chief Complaint: Nausea/Vomiting ED Provider: Shakeel Villalba Dx/Rx/DC Orders Clinical Impression: Abdominal pain, Nausea & vomiting, Status post cholecystectomy Prescriptions: New dicyclomine 20 mg tablet 20 mg PO TID PRN (Reason: abdominal pain) Qty: 20 0RF ondansetron 4 mg tablet,disintegrating 4 mg PO Q6H PRN (Reason: nausea and vomiting) Qty: 20 0RF No Action mecobalamin (vitamin B12) 1,000 mcg tablet,chewable 2,000 mcg PO DAILY metoprolol succinate 50 mg tablet extended release 24 hr 50 mg PO QDAY Qty: 90 3RF L norgest/e.estradiol-e.estrad [Jaimiess] 0.15 mg-30 mcg (84)/10 mcg (7) tablets,dose pack,3 month See Rx Instructions PO .COMPLEX Rx Instructions: take 1 tablet daily following the order on blister card(s) PO Zyrtec 10 mg capsule 10 mg PO QDAY PRN (Reason: allergy symptoms) vonoprazan 10 mg tablet 10 mg PO QDAY Qty: 30 2RF ondansetron 4 mg tablet,disintegrating 4 mg PO Q12H PRN (Reason: nausea and vomiting) Qty: 30 1RF cholecalciferol (vitamin D3) 1,250 mcg (50,000 unit) tablet 1,250 mcg PO QWEEK promethazine 25 mg tablet 25 mg PO TID PRN (Reason: nausea and vomiting) Qty: 10 0RF trazodone 100 mg tablet 100 mg PO QHS PRN (Reason: insomnia) Qty: 90 1RF naratriptan 2.5 mg tablet See Rx Instructions PO .COMPLEX Rx Instructions: take 1 tab at onset of headache; if no relief may repeat 1 tab after at least 4 hrs; max = 2 tabs/24 hrs PO scopolamine base 1 mg over 3 days patch 3 day 1 patch transdermal Q3D PRN (Reason: nausea and vomiting) Qty: 4 1RF azelastine 137 mcg (0.1 %) spray,non-aerosol 2 spray intranasal BID Qty: 30 0RF Rx Instructions: administer into each nostril lubiprostone 8 mcg capsule 8 mcg PO BID Qty: 60 1RF Primary Care Provider: Karthik Lino Referrals: Karthik Lino MD [Primary Care Provider, Family Practice] Activity Restrictions/Additional Instructions: Follow-up with your doctors in the outpatient setting your blood work did not show any acute findings here today your CT did not show any acute findings either. Use prescriptions as prescribed. Return for worsening symptoms or other concerns Print Language: Nauruan Disposition Disposition: Home, Self Care
--- NOTE | 2025-01-23 17:00 | CT_ITS ---
PROCEDURE: ABDOMEN/PELVIS W IV CONT ONLY 01/23/2025 REASON FOR EXAM: RLQ PAIN TECHNIQUE: Procedure Code: [id number] Modality: CT Procedure: ABDOMEN/PELVIS W IV CONT ONLY Coronal and Sagittal reconstruction series were provided. CONTRAST: Isovue 370 VOLUME: 9 9 mL One or more dose reduction techniques were used (e.g., Automated exposure control, adjustment of the mA and/or kV according to patient size, use of iterative reconstruction technique. RADIATION DOSE SUMMARY: CTDlvol: 21.36 mGy DLP: 1129.19 mGycm COMPARISON: CT abdomen and pelvis June 30, 2024. FINDINGS: Lung bases: Unremarkable. Liver: Unremarkable. Gallbladder: Status post hysterectomy. No pathologic biliary dilation. Spleen: Unremarkable. Pancreas: Unremarkable. Adrenals: Unremarkable. Kidneys: No hydronephrosis. No nephrolithiasis. Bladder: Decompressed but unremarkable. Reproductive Organs: Unremarkable. Bowel: Dilated bowel loops with fluid may be suggestive of enteritis. No bowel obstruction. Appendix: Normal. Lymph nodes: No lymphadenopathy Vasculature: No aneurysm. Peritoneum / Retroperitoneum: No free air or free fluid. Bones: No acute bony abnormalities. CT/Abdomen/Pelvis W IV Cont ONLY IMPRESSION: Dilated bowel loops with fluid may be suggestive of enteritis. Normal appendix. Reading [facility]
[2025-01-23] MEDS: 0.9% Normal Saline (1000mL) 1,000 ML 999 ML IV (17:03)
[2025-01-23 18:00] VITALS: BP 138/86; PULSE 99; RESP 16; O2SAT 100
[2025-01-23 19:07] VITALS: BP 160/95; PULSE 99; RESP 16; TEMP 37.1; O2SAT 100
== END 2025-01-23 19:13 | disposition home or self-care (01) ==
PROVIDERS: Emergency Provider Emergency Medicine; PCP Family Medicine; Visit Provider Emergency Medicine
DX: R11.2 Nausea with vomiting, unspecified (principal); R10.9 Unspecified abdominal pain; G90.A Postural orthostatic tachycardia syndrome [POTS]; Z90.49 Acquired absence of other specified parts of digestive tract; Z79.899 Other long term (current) drug therapy
CPT/HCPCS: 74177; 80053; 83690; 84703; 85025; 96374; 96376; 99283; Q9967

== ENCOUNTER → 2025-02-05 | Outpatient (CLI) | payer OTHER, SELFPAY | END | disposition home or self-care (01) | LOC: NM 08:57 | PROVIDERS: PCP Family Medicine; Referring Provider Student in an Organized Health Care Education/Training Program; Visit Provider Student in an Organized Health Care Education/Training Program | DX: R11.2 Nausea with vomiting, unspecified (principal) | CPT/HCPCS: 78264; A9541 ==

== ENCOUNTER → 2025-02-26 | Outpatient (CLI) | payer OTHER, SELFPAY ==
[2025-02-26 10:03] LABS: Hematocrit 41.1 % (37-47); Hemoglobin 13.2 g/dL (12.0-15.0); Immature Granulocytes Count 0.010 X10^3/uL (0.0-0.0); Mean Corp Hgb Conc 32.1 g/dL (32-36); Mean Corpuscular Volume 85.1 fL (81-99); Mean Platelet Vol. 10.1 fl (6.2-12.0); NRBC Flagged by Analyzer 0 % (0-5); Platelet Count 325 K/mm3 (150-450); RBC Distribution Width CV 13.3 % (11.6-14.6); RBC Distribution Width SD 41.6 fl (35.1-43.9); Red Blood Count 4.83 M/mm3 (4.2-5.4); White Blood Count 7.6 K/mm3 (4.4-11.0)
[2025-02-26 11:19] LABS: AST(SGOT) 23 U/L (<=31); Alanine Aminotransfer ALT/SGPT 11 U/L (<=34); Albumin, Serum 4.6 g/dL (3.5-5.0); Alkaline Phosphatase 109 U/L (35-104); Anion Gap 16 (5-15); BUN 12 mg/dL (4-19); BUN/Creat Ratio 16.6 RATIO (10-20); Calcium,Total 9.7 mg/dL (7.6-11.0); Carbon Dioxide 22.6 mmol/L (21.0-32.0); Chloride 103 mmol/L (98-108); Globulin 3.5 g/dL (2.2-4.2); Glucose 74 mg/dL (70-99); Potassium 3.9 mmol/L (3.3-5.1)
== END | disposition home or self-care (01) ==
LOC: LAB 09:28
PROVIDERS: PCP Family Medicine; Referring Provider Student in an Organized Health Care Education/Training Program; Visit Provider Student in an Organized Health Care Education/Training Program
DX: R11.2 Nausea with vomiting, unspecified (principal)
CPT/HCPCS: 36415; 80053; 85025

== ENCOUNTER 2025-03-06 22:53 | Emergency (ER) | payer OTHER, SELFPAY ==
[2025-03-06 22:54] VITALS: BP 145/106; PULSE 121; RESP 18; TEMP 39.4; O2SAT 100; BMI 42.4
[2025-03-07] MEDS: Ketorolac 30 MG/ML Syringe IV (00:01)
[2025-03-07] MEDS: 0.9% Normal Saline (1000mL) 1,000 ML 999 ML IV (00:01)
[2025-03-07 00:09] VITALS: TEMP 37.7
--- OUTSIDE RECORDS SUMMARY | 2025-03-07 00:26 | XMS RPT_ITS | CCD ---
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 cetirizine (ZYRTEC) 10 mg tablet TAKE 1 TABLET BY MOUTH EVERY DAY omeprazole (PRILOSEC) 40 mg capsule Take 40 mg by mouth once daily. dicyclomine (BENTYL) 20 mg tablet Take 20 mg by mouth three times a day. ondansetron orally disintegrating (ZOFRAN ODT) 4 mg disintegrating tablet Take 4 mg by mouth every 8 hours as needed. sertraline (ZOLOFT) 100 mg tablet Take 1 tablet by mouth once daily. traZODone (DESYREL) 50 mg tablet Take 50 mg by mouth at bedtime as needed. For Insomnia (Patient taking differently: Take 100 mg by mouth at bedtime as needed. For Insomnia) vonoprazan (VOQUEZNA) 10 mg tablet Take 10 mg by mouth once daily. QELBREE 200 mg capsule, extended release Take 2 capsules by mouth every afternoon. metoprolol succinate ER (TOPROL XL) 25 mg 24 hr tablet take 1 tablet by mouth every day (Patient taking differently: Take 50 mg by mouth once daily.) L-norgest/e.estradiol-e.est rad (JAIMIESS ORAL) Take 1 tablet by mouth once daily. mecobalamin, vitamin B12, (B12 ACTIVE) 1,000 mcg chew Take 2,000 mcg by mouth once daily. ketotifen fumarate (ZADITOR) 0.025 % (0.035 %) ophthalmic solution Use 1 Drop in both eyes two times a day as needed. No current facility-administered medications for this visit. ALLERGIES: Cyclobenzaprine PHYSICAL EXAMINATION: General: No acute distress. CV: Regular rate and rhythm. Resp: Lung (more content not included)... Normal [facility] CBC W/Diff, Automatedon - Absolute Lymph 2.11 X10 3/uL Normal 0.83-4.51 [facility] Comment on above: Performed By: #### L 100.0100, L500.4050, L501.2450, L700.6800 ####[facility] [address] [place], [address] Absolute Neut 3.2 X10 3/uL Normal 2.0-7.7 [facility] Comment on above: Performed By: #### L 100.0100, L500.4050, L501.2450, L700.6800 ####[facility] [address] [place], [address] Basophils/100 WBC (Bld) 0.7 % Normal 0-1 [facility] Comment on above: Performed By: #### L 100.0100, L500.4050, L501.2450, L700.6800 ####[facility] [address] [place], [address] Eosinophils/100 WBC (Bld) 1.2 % Normal 0-5 [facility] Comment on above: Performed By: #### L 100.0100, L500.4050, L501.2450, L700.6800 ####[facility] [address] [place], [address] Erythrocyte distribution width (RBC) [Ratio] 13.1 % Normal 11.6-14.6 [facility] Comment on above: Performed By: #### L 100.0100, L500.4050, L501.2450, L700.6800 ####[facility] [address] [place], [address] Hematocrit (Bld) [Volume fraction] 40.2 % Normal 37-47 [facility] Comment on above: Performed By: #### L 100.0100, L500.4050, L501.2450, L700.6800 ####[facility] [address] [place], [address] Hemoglobin (Bld) [Mass/Vol] 12.8 g/dL Normal 12.0-15.0 [facility] Comment on above: Performed By: #### L 100.0100, L500.4050, L501.2450, L700.6800 ####[facility] [address] [place], [address] IG% 0.300 Normal 0.0-0.9 [facility] Comment on above: Result Comment: IG% - Immature Granulocytes (promyelocytes, myelocytes andmetamyelocytes) > 1% indicates that a LEFT SHIFT is Present. Performed By: #### L 100.0100, L500.4050, L501.2450, L700.6800 ####[facility] [address] [place], [address] Lymphocytes/100 WBC (Bld) 35.2 % Normal 19-41 [facility] Comment on above: Performed By: #### L 100.0100, L500.4050, L501.2450, L700.6800 ####[facility] [address] [place], [address] MCH (RBC) [Entitic mass] 27.1 pg Normal 27.0-32.0 [facility] Comment on above: Performed By: #### L 100.0100, L500.4050, L501.2450, L700.6800 ####[facility] [address] [place], [address] MCHC (RBC) [Mass/Vol] 31.8 g/dL Low 32-36 [facility] Comment on above: Performed By: #### L 100.0100, L500.4050, L501.2450, L700.6800 ####[facility] [address] [place], [address] MCV (RBC) [Entitic vol] 85.2 fL Normal 81-99 [facility] Comment on above: Performed By: #### L 100.0100, L500.4050, L501.2450, L700.6800 ####[facility] [address] [place], [address] Monocytes/100 WBC (Bld) 8.8 % Normal 0-10 [facility] Comment on above: Performed By: #### L 100.0100, L500.4050, L501.2450, L700.6800 ####[facility] [address] [place], [address] Neutrophils/100 WBC (Bld) 53.8 % Normal 47-70 [facility] Comment on above: Performed By: #### L 100.0100, L500.4050, L501.2450, L700.6800 ####[facility] [address] [place], [address] Nucleated RBC (Bld) [#/Vol] 0 10*3/uL Normal 0-5 [facility] Comment on above: Performed By: #### L 100.0100, L500.4050, L501.2450, L700.6800 ####[facility] [address] [place], [address] Platelet mean volume (Bld) [Entitic vol] 10.0 fL Normal 6.2-12.0 [facility] Comment on above: Performed By: #### L 100.0100, L500.4050, L501.2450, L700.6800 ####[facility] [address] [place], [address] Platelets (Bld) [#/Vol] 321 10*3/uL Normal 150-450 [facility] Comment on above: Performed By: #### L 100.0100, L500.4050, L501.2450, L700.6800 ####[facility] [address] [place], [address] RBC (Bld) [#/Vol] 4.72 10*6/uL Normal 4.2-5.4 [facility] Comment on above: Performed By: #### L 100.0100, L500.4050, L501.2450, L700.6800 ####[facility] [address] [place], [address] RDW SD 40.7 fl Normal 35.1-43.9 [facility] Comment on above: Performed By: #### L 100.0100, L500.4050, L501.2450, L700.6800 ####[facility] [address] [place], [address] WBC (Bld) [#/Vol] 6.0 10*3/uL Normal 4.4-11.0 [facility] Comment on above: Performed By: #### L 100.0100, L500.4050, L501.2450, L700.6800 ####[facility] [address] [place], [address] [facility] Metabolic [facility] 11-12-2024 Albumin [Mass/Vol] 4.1 g/dL Normal 3.5-5.0 [facility] Comment on above: Performed By: #### L 100.0100, L500.4050, L501.2450, L700.6800 ####[facility] [address] [place], [address] Albumin/Globulin [Mass ratio] 1.4 {ratio} Normal 0.9-2.4 [facility] Comment on above: Performed By: #### L 100.0100, L500.4050, L501.2450, L700.6800 ####[facility] [address] [place], [address] ALK PHOS 97 U/L Normal 35-104 [facility] Comment on above: Performed By: #### L 100.0100, L500.4050, L501.2450, L700.6800 ####[facility] [address] [place], [address] ALT [Catalytic activity/Vol] 16 U/L Normal <=34 [facility] Comment on above: Performed By: #### L 100.0100, L500.4050, L501.2450, L700.6800 ####[facility] [address], [address] AST [Catalytic activity/Vol] 20 U/L Normal <=31 [facility] Comment on above: Performed By: #### L 100.0100, L500.4050, L501.2450, L700.6800 ####[facility] [address] [place], [address] Bilirubin [Mass/Vol] 0.42 mg/dL Normal 0.00-1.30 [facility] Comment on above: Performed By: #### L 100.0100, L500.4050, L501.2450, L700.6800 ####[facility] [address] [place], [address] BUN/CRE 16.4 RATIO Normal 10-20 [facility] Comment on above: Performed By: #### L 100.0100, L500.4050, L501.2450, L700.6800 ####[facility] [address], [address] Calcium [Mass/Vol] 9.1 mg/dL Normal 7.6-11.0 [facility] Comment on above: Performed By: #### L 100.0100, L500.4050, L501.2450, L700.6800 ####[facility] [address] [place], [address] Chloride [Moles/Vol] 103 mmol/L Normal 98-108 [facility] Comment on above: Performed By: #### L 100.0100, L500.4050, L501.2450, L700.6800 ####[facility] [address] [place], [address] CO2 [Moles/Vol] 23.8 mmol/L Normal 21.0-32.0 [facility] Comment on above: Performed By: #### L 100.0100, L500.4050, L501.2450, L700.6800 ####[facility] [address] [place], [address] Creatinine [Mass/Vol] 0.91 mg/dL Normal 0.70-1.20 [facility] Comment on above: Performed By: #### L 100.0100, L500.4050, L501.2450, L700.6800 ####[facility] [address] [place], [address] ECRCL 108.22 ml/min Normal 50-250 [facility] Comment on above: Performed By: #### L 100.0100, L500.4050, L501.2450, L700.6800 ####[facility] [address] [place], [address] GAP 13 Normal 5-15 [facility] Comment on above: Performed By: #### L 100.0100, L500.4050, L501.2450, L700.6800 ####[facility] [address] [place], [address] GFR/1.73 sq M.predicted among non-blacks MDRD (S/P/Bld) [Vol rate/Area] 91 mL/min/{1.73_m2} Normal >60 [facility] Comment on above: Result Comment: mL/m in/1.73m2 CKD-EPI Creatinine Equation (2020) Performed By: #### L 100.0100, L500.4050, L501.2450, L700.6800 ####[facility] [address], [address] Globulin (S) [Mass/Vol] 2.9 g/dL Normal 2.2-4.2 [facility] Comment on above: Performed By: #### L 100.0100, L500.4050, L501.2450, L700.6800 ####[facility] [address] [place], [address] Glucose [Mass/Vol] 88 mg/dL Normal 70-99 [facility] Comment on above: Performed By: #### L 100.0100, L500.4050, L501.2450, L700.6800 ####[facility] [address] [place], [address] Potassium [Moles/Vol] 3.9 mmol/L Normal 3.3-5.1 [facility] Comment on above: Performed By: #### L 100.0100, L500.4050, L501.2450, L700.6800 ####[facility] [address] [place], [address] Sodium [Moles/Vol] 140 mmol/L Normal 133-145 [facility] Comment on above: Performed By: #### L 100.0100, L500.4050, L501.2450, L700.6800 ####[facility] [address] [place], [address] T PROT 7.0 g/dL Normal 5.9-8.4 [facility] Comment on above: Performed By: #### L 100.0100, L500.4050, L501.2450, L700.6800 ####[facility] [address], [address] Urea nitrogen [Mass/Vol] 15 mg/dL Normal 4-19 [facility] Comment on above: Performed By: #### L 100.0100, L500.4050, L501.2450, L700.6800 ####[facility] [address] [place], [place], [address] Emergency Department Summary on 11-12-2024 Emergency Department Summary Normal [facility] Lipaseon 11-12-2024 Lipase [Catalytic activity/Vol] 15 U/L Normal 13-75 [facility] Comment on above: Result Comment: Scarlett gonzalez note:LIPASE revised reference range effective 22.New Lipase methodology. Expected to produce lower valuesthan the previous assay method.NEW Reference Range: 13 - 75 U/L Performed By: #### L 100.0100, L500.4050, L501.2450, L700.6800 ####[facility] [address] [place], [place], [id number] ,Serum,hCG Quali.on 11-12-2024 HCG, SERUM QUAL Negative Normal [facility] Comment on above: Performed By: #### L 100.0100, L500.4050, L501.2450, L700.6800 ####[facility] [address] [place], [place], [id number] Urgent Care Visit Reporton 0 11-11-2024 Urgent Care Visit Report Normal [facility] Abdomen Single Viewon 2024 Abdomen Single View Normal [facility] Abdomen Single Viewon 2024 Abdomen Single View Normal [facility] CNOVon 10-22-2024 CNOV Office Visit (GENSWS ) ACE LEONARDO ([id number]) 2 F Date Time Provider Department 10/22/24 2:30 PM PHILLIP FERREIRA During your visit today, we recorded the following information about you: Temperature Pulse Respiration Blood pressure 98.4 degrees 106/minute 12/minute 120/78 Weight Height 104.3 kg 1.575 m Phillip Ferreira MD 10/23/2024 8:33 PM Signed FOLLOW UP VISIT [facility] [id number] DATE OF SERVICE: October 22, 2024 : 2000 REFERRING PHYSICIAN: Karthik Lino MD, MD Ace is a patient [...] Blood pressure 120/78, pulse 106, temperature 36.9 ?C (98.4 ?F), temperature source Temporal, resp. rate 12, height [...] 1 month if needed. Phillip Ferreira MD Allergies As of Date: 10/22/2024 Noted Allergy Reaction CYCLOBENZAPRINE 07/22/2024 2 - Rash Date Reviewed: 10/22/2024 Reviewed by: Kelechi Neil LPN - Fully Assessed Reason for Visit: Follow Up [171] Primary Visit Diagnosis:Incisional pain [L76.82] Order(s):[] triamcinolone acetonide 10 mg injection (KeNALog 10)Disp: Rfl: Prescriptions as of 10/23/2024 - ergocalciferol 50,000 unit capsule (VITAMIN D2, DRISDOL) Take 50,000 Units by mouth one time a week. - cetirizine (ZYRTEC) 10 mg tablet TAKE [...] fumarate (ZADITOR) 0.025 % (0.035 %) ophthalmic (more content not included)... Normal [facility] Gastroenterology Visit Repor ton 10-20-2024 Gastroenterology Visit Report Normal [facility] MR/BMS.BPon 10-16-2024 MR/BMS.BP Normal [facility] Thyroglobulin w/Anti-TG ABon 10-10-2024 Anti-TG AB < 1.0 Normal 0.0-0.9 [facility] Comment on above: Result Comment: Thyr oglobulin Antibody measured by Mark CoulterMethodologyIt should be noted that the presence of thyroglobulinantibodies may not be pathogenic nor diagnostic, especiallyat very low levels. The assay project controller has found thatfour percent of individuals without evidence of thyroiddisease or autoimmunity will have positive TgAb levels upto 4 IU/mL. Performed By: #### L 503.0106, L3300.6820, L3300.6900, L506.1001 ####[facility] [address] [place], [address] THYROGLOB QUANT 11.8 ng/mL Normal 1.5-38.5 [facility] Comment on above: Result Comment: Acco rding to the National Academy of Clinical Biochemistry,the reference interval for Thyroglobulin (TG) should berelated to euthyroid patients and not for patients whounderwent thyroidectomy. TG reference intervals for thesepatients depend on the residual mass of the thyroid tissueleft after surgery. Establishing a post-operative baselineis recommended. The assay limit of quantitation is 0.1ng/mLThyroglobulin measured by Mark [employer] ImmunometricAssay Performed By: #### L 503.0106, L3300.6820, L3300.6900, L506.1001 ####[facility] [address] [place], [address] Thyroid Peroxidase ABon 09-15 THYR PEROX AB 9 IU/mL Normal 0-34 [facility] Comment on above: Result Comment: Perf ormed at: - [facility] [address] [id number] Director: Rodney Jonas PhD, Phone: [phone] Performed By: #### L 503.0106, L3300.4725, L33006900, L506.1001 ####[facility] [address] [place], [place], [id number] Comprehensive Metabolic Prof ilon 10-09-2024 Albumin [Mass/Vol] 4.2 g/dL Normal 3.5-5.0 [facility] Comment on above: Order Comment: Order Date: 10/09/24Order Info: [id number] - CMPOrder Info: [id number] - LIPIDOrder Info: [id number] - TSHOrder Info: [id number] - T4F Performed By: #### L 500.4050, L506.0400, L500.4100, L501.9520 ####[facility] [address] [place], [place], [id number] Albumin/Globulin [Mass ratio] 1.4 {ratio} Normal 0.9-2.4 [facility] Comment on above: Order Comment: Order Date: 10/09/24Order Info: [id number] - CMPOrder Info: [id number] - LIPIDOrder Info: [id number] - TSHOrder Info: [id number] - T4F Performed By: #### L 500.4050, L506.0400, L500.4100, L501.9520 ####[facility] [address] [place], [place], [id number] ALK PHOS 108 U/L High 35-104 [facility] Comment on above: Order Comment: Order Date: 10/09/24Order Info: [id number] - CMPOrder Info: [id number] - LIPIDOrder Info: [id number] - TSHOrder Info: 7 - T4F Performed By: #### L 500.4050, L506.0400, L500.4100, L501.9520 ####[facility] [address] [place], [address] ALT [Catalytic activity/Vol] 16 U/L Normal <=34 [facility] Comment on above: Order Comment: Order Date: 10/09/24Order Info: [id number] - CMPOrder Info: [id number] - LIPIDOrder Info: [id number] - TSHOrder Info: [id number] - T4F Performed By: #### L 500.4050, L506.0400, L500.4100, L501.9520 ####[facility] [address] [place], [address] AST [Catalytic activity/Vol] 21 U/L Normal <=31 [facility] Comment on above: Order Comment: Order Date: 10/09/24Order Info: [id number] - CMPOrder Info: - LIPIDOrder Info: [id number] - TSHOrder Info: [id number] - T4F Performed By: #### L 500.4050, L506.0400, L500.4100, L501.9520 ####[facility] [address] [place], [address] Bilirubin [Mass/Vol] 0.23 mg/dL Normal 0.00-1.30 [facility] Comment on above: Order Comment: Order Date: 10/09/24Order Info: [id number] - CMPOrder Info: [id number] - LIPIDOrder Info: [id number] - TSHOrder Info: 7 - T4F Performed By: #### L 500.4050, L506.0400, L500.4100, L501.9520 ####[facility] [address] [place], [address] BUN/CRE 17.4 RATIO Normal 10-20 [facility] Comment on above: Order Comment: Order Date: 10/09/24Order Info: [id number] - CMPOrder Info: [id number] - LIPIDOrder Info: [id number] - TSHOrder Info: [id number] - T4F Performed By: #### L 500.4050, L506.0400, L500.4100, L501.9520 ####[facility] [address] [place], [address] Calcium [Mass/Vol] 9.1 mg/dL Normal 7.6-11.0 [facility] Comment on above: Order Comment: Order Date: 10/09/24Order Info: 86-1 - CMPOrder Info: [id number] - LIPIDOrder Info: 6-3 - TSHOrder Info: [id number] - T4F Performed By: #### L 500.4050, L506.0400, L500.4100, L501.9520 ####[facility] [address] [place], [address] Chloride [Moles/Vol] 103 mmol/L Normal 98-108 [facility] Comment on above: Order Comment: Order Date: 10/09/24Order Info: [id number] - CMPOrder Info: [id number] - LIPIDOrder Info: 6-3 - TSHOrder Info: [id number] - T4F Performed By: #### L 500.4050, L506.0400, L500.4100, L501.9520 ####[facility] [address] [place], [address] CO2 [Moles/Vol] 23.3 mmol/L Normal 21.0-32.0 [facility] Comment on above: Order Comment: Order Date: 10/09/24Order Info: [id number] - CMPOrder Info: [id number] - LIPIDOrder Info: [id number] - TSHOrder Info: [id number] - T4F Performed By: #### L 500.4050, L506.0400, L500.4100, L501.9520 ####[facility] [address] [place], [address] Creatinine [Mass/Vol] 0.71 mg/dL Normal 0.70-1.20 [facility] Comment on above: Order Comment: Order Date: 10/09/24Order Info: [id number] - CMPOrder Info: [id number] - LIPIDOrder Info: [id number] - TSHOrder Info: 302-7 - T4F Performed By: #### L 500.4050, L506.0400, L500.4100, L501.9520 ####[facility] [address] [place], [address] GAP 14 Normal 5-15 [facility] Comment on above: Order Comment: Order Date: 10/09/24Order Info: [id number] - CMPOrder Info: [id number] - LIPIDOrder Info: 3 - TSHOrder Info: 7 - T4F Performed By: #### L 500.4050, L506.0400, L500.4100, L501.9520 ####[facility] [address] [place], [address] GFR/1.73 sq M.predicted among non-blacks MDRD (S/P/Bld) [Vol rate/Area] 123 mL/min/{1.73_m2} Normal >60 [facility] Comment on above: Order Comment: Order Date: 10/09/24Order Info: [id number] - CMPOrder Info: [id number] - LIPIDOrder Info: [id number] - TSHOrder Info: [id number] - T4F Result Comment: mL/m in/1.73m2 CKD-EPI Creatinine Equation (2020) Performed By: #### L 500.4050, L506.0400, L500.4100, L501.9520 ####[facility] [address] [place], [address] Globulin (S) [Mass/Vol] 2.9 g/dL Normal 2.2-4.2 [facility] Comment on above: Order Comment: Order Date: 10/09/24Order Info: [id number] - CMPOrder Info: [id number] - LIPIDOrder Info: 3 - TSHOrder Info: [id number] - T4F Performed By: #### L 500.4050, L506.0400, L500.4100, L501.9520 ####[facility] [address] [place], [address] Glucose [Mass/Vol] 91 mg/dL Normal 70-99 [facility] Comment on above: Order Comment: Order Date: 10/09/24Order Info: 785- - CMPOrder Info: [id number] - LIPIDOrder Info: 3 - TSHOrder Info: 4-7 - T4F Performed By: #### L 500.4050, L506.0400, L500.4100, L501.9520 ####[facility] [address] [place], [address] Potassium [Moles/Vol] 3.8 mmol/L Normal 3.3-5.1 [facility] Comment on above: Order Comment: Order Date: 10/09/24Order Info: 785- - CMPOrder Info: [id number] - LIPIDOrder Info: 3 - TSHOrder Info: [id number] - T4F Performed By: #### L 500.4050, L506.0400, L500.4100, L501.9520 ####[facility] [address] [place], [address] Sodium [Moles/Vol] 141 mmol/L Normal 133-145 [facility] Comment on above: Order Comment: Order Date: 10/09/24Order Info: 785- - CMPOrder Info: [id number] - LIPIDOrder Info: 3 - TSHOrder Info: [id number] - T4F Performed By: #### L 500.4050, L506.0400, L500.4100, L501.9520 ####[facility] [address] [place], [address] T PROT 7.1 g/dL Normal 5.9-8.4 [facility] Comment on above: Order Comment: Order Date: 10/09/24Order Info: [id number] - CMPOrder Info: [id number] - LIPIDOrder Info: 6-3 - TSHOrder Info: 7 - T4F Performed By: #### L 500.4050, L506.0400, L500.4100, L501.9520 ####[facility] [address] [place], [address] Urea nitrogen [Mass/Vol] 12 mg/dL Normal 4-19 [facility] Comment on above: Order Comment: Order Date: 10/09/24Order Info: [id number] - CMPOrder Info: [id number] - LIPIDOrder Info: 3 - TSHOrder Info: 7 - T4F Performed By: #### L 500.4050, L506.0400, L500.4100, L501.9520 ####[facility] [address] [place], [address] Lipid Profileon 10-09-2024 CHOL:HDL 3.57 Normal [facility] Comment on above: Order Comment: Order Date: 10/09/24Order Info: [id number] - CMPOrder Info: [id number] - LIPIDOrder Info: 3 - TSHOrder Info: 7 - T4F Performed By: #### L 500.4050, L506.0400, L500.4100, L501.9520 ####[facility] [address] [place], [address] Cholesterol [Mass/Vol] 209 mg/dL High <=190 [facility] Comment on above: Order Comment: Order Date: 10/09/24Order Info: [id number] - CMPOrder Info: [id number] - LIPIDOrder Info: [id number] - TSHOrder Info: 3027 - T4F Result Comment: Chol esterol level, Desirable <200 mg/dLBorderline high cholesterol 200-239 mg/dLHigh cholesterol >=240 mg/dLRecommendations of the NCEP Adult Treatment Panel for thefollowing risk-cutoff thresholds for the [place] Americanpulation. Performed By: #### L 500.4050, L506.0400, L500.4100, L501.9520 ####[facility] [address] [place], [address] Cholesterol in HDL [Mass/Vol] 59 mg/dL Normal [facility] Comment on above: Order Comment: Order Date: 10/09/24Order Info: [id number] - CMPOrder Info: [id number] - LIPIDOrder Info: 3 - TSHOrder Info: [id number] T4F Result Comment: Jaymie onal Cholesterol Education Program (NCEP) guidelines:<40 mg/dL: Low HDL-cholesterol (major risk factor for CHD)>= 60 mg/dL: High HDL-cholesterol (negative risk factor forCHD)HDL-cholesterol is affected by a number of factors, e.g.smoking, exercise, hormones, sex and age. Performed By: #### L 500.4050, L506.0400, L500.4100, L501.9520 ####[facility] [address] [place], [address] Cholesterol in LDL [Mass/Vol] 110 mg/dL Normal [facility] Comment on above: Order Comment: Order Date: 10/09/24Order Info: [id number] - CMPOrder Info: [id number] - LIPIDOrder Info: 3 - TSHOrder Info: 7 T4F Result Comment: Bord gocair=764-764 mg/dL Higher Dqhm=683 mg/dL or greater Performed By: #### L 500.4050, L506.0400, L500.4100, L501.9520 ####[facility] [address] [place], [address] Cholesterol in VLDL [Mass/Vol] 40 mg/dL Normal 5-40 [facility] Comment on above: Order Comment: Order Date: 10/09/24Order Info: [id number] - CMPOrder Info: [id number] - LIPIDOrder Info: 3 - TSHOrder Info: 7 - T4F Performed By: #### L 500.4050, L506.0400, L500.4100, L501.9520 ####[facility] [address] [place], [address] Triglyceride [Mass/Vol] 201 mg/dL High [facility] Comment on above: Order Comment: Order Date: 10/09/24Order Info: [id number] - CMPOrder Info: [id number] - LIPIDOrder Info: 3 - TSHOrder Info: 7 - T4F Result Comment: The drugs N-Acetylcysteine and Metamizole may falselydepress this assay.Normal range: <150 mg/dLBorderline High: 150-199 mg/dLHigh: 200-499 mg/dLVery High: >500 mg/dL Performed By: #### L 500.4050, L506.0400, L500.4100, L501.9520 ####[facility] [address] [place], [address] T4 Free Directon 10-09-2024 T4 FREE DIRECT 1.00 ng/dL Normal 0.76-1.46 [facility] Comment on above: Order Comment: Order Date: 10/09/24Order Info: [id number] - CMPOrder Info: [id number] - LIPIDOrder Info: 3 - TSHOrder Info: 7 - T4F Performed By: #### L 500.4050, L506.0400, L500.4100, L501.9520 ####[facility] [address] [place], [address] Thyroid Stim Hormone (TSH)on 10-09-2024 TSH 3.080 uIU/mL Normal 0.300-4.200 [facility] Comment on above: Order Comment: Order Date: 10/09/24Order Info: 785- - CMPOrder Info: [id number] - LIPIDOrder Info: [id number] - TSHOrder Info: [id number] - T4F Performed By: #### L 500.4050, L506.0400, L500.4100, L501.9520 ####[facility] [address] [place], [address] Vitamin B12on 10-09-2024 Cobalamin (Vitamin B12) [Mass/Vol] 327 pg/mL Normal 180-914 [facility] Comment on above: Order Comment: Order Date: 10/09/24Order Info: [id number] - CMPOrder Info: - LIPIDOrder Info: [id number] - TSHOrder Info: [id number] - T4F Performed By: #### L 503.0106, L3300.6820, L3300.6900, L506.1001 ####[facility] [address] [place], [address] Vitamin D,25 Hydroxyon 10-09 Vitamin D 25-OH 18.6 ng/mL Low 30-100 [facility] Comment on above: Order Comment: Order Date: 10/09/24Order Info: [id number] - CMPOrder Info: - LIPIDOrder Info: [id number] - TSHOrder Info: [id number] - T4F Result Comment: Cathy min D StatusDeficiency: <20 ng/mL (50nmol/L)Insufficiency: 20-30 ng/mL (50-75 nmol/L)Sufficiency: 30-100 ng/mL (75-250 nmol/L)Toxicity: >100 ng/mL (>250 nmol/L) Performed By: #### L 503.0106, L3300.6820, L3300.6900, L506.1001 ####[facility] [address] [place], [address] CNOVon 10-08-2024 CNOV Office Visit (GENSWS ) ACE LEONARDO ([id number]) 2 F Date Time Provider Department 10/08/24 11:15 AM PHILLIP FERREIRA During your visit today, we recorded the following information about you: Phillip Ferreira MD 10/09/2024 6:57 AM Signed FOLLOW UP VISIT NAME: Ace Leonardo CLINIC NO.: [id number] DATE OF SERVICE: 10/08/2024 : 2000 REFERRING PHYSICIAN: Karthik Lino MD, MD Ace is a patient [...] me in 2 weeks. Phillip Ferreira MD Allergies As of Date: 10/08/2024 Noted Allergy Reaction CYCLOBENZAPRINE 07/22/2024 2 - Rash Date Reviewed: 10/08/2024 Reviewed by: Natali Bustamante RN - Fully Assessed Reason for Visit: Consult [173] Cmt: Here for abdominal pain, Dr Ferreira to see Primary Visit Diagnosis:Incisional infection [T81.49XA] Other Visit Diagnosis:Incisional pain [L76.82] Order(s):clindamycin (CLEOCIN) 300 mg capsuleTake 1 capsule by mouth three times a day for 10 days.Disp: 30 capsuleRfl: 0 Prescriptions as of 10/09/2024 - clindamycin (CLEOCIN) 300 mg capsule Take [...] as needed. Problem List As Of Date 10/08/2024 Noted Resolved Gastroesophageal reflux disease [K21.9] 09/12/2022 Dizziness [R42] 07/03/2022 Headache [R51] 10/04/2022 Postural orthostatic tachycardia syndrome (POTS*05/17/2022 Pre-op examination [Z01.818] 02/06/2024 MIRTA (obstructive sleep apnea) [G47.33] 02/06/2024 BMI 39.0-39.9,adult [Z68.39] 02/06/2024 Attention-deficit hyperactivity disorder, unspe*04/03/2024 Thyroid nodule [E04.1] 07/24/2024 Anxiety and depression [F41.9, F32.A] 07/24/2024 VHD (valvular heart disease) [I38] 07/24/2024 Prescriptions ordered this encounter Disp Refills Start End CLINDAMYCIN HCL 300 MG CAPSULE 30 c* 0 10/08/2024 10/18/2024 Route: PO Sig: Take 1 capsule by mouth three times a day for 10 days. Encounter Status:Closed by PHILLIP FERREIRA on 10/09/[address] [facility] Acute Abdomen Inc Cheston Acute Abdomen Inc Chest Normal [facility] Bacteria Wnd Culton 09-18-19 Bacteria identified Cx Nom (Wound) ORGANISM ID: 1 Few skin miriam GRAM STAIN: Few Gram positive cocci No Polymorphonuclear Leukocytes Abnormal [facility] Comment on above: Performed By: #### 6 462-6 ####[facility] LABCLIA [id number] [address] [place] CNOVon 09-17-2024 CNOV Office Visit (GENSWS ) ACE LEONARDO ([id number]) 2 F Date Time Provider Department 09/17/24 1:00 PM MONSE CHAPIN GENSWS During your visit today, we recorded the following information about you: Temperature Pulse Respiration Blood pressure 98.4 degrees 87/minute 14/minute 133/83 Weight 101.6 kg Monse Chapin APRN.CNP 09/17/2024 2:25 PM Signed This note was created using Roomtagriter. Recording using PostHelpers software for draft documentation of the visit was discussed with the patient/authorized union representative; all questions welcomed and answered. Patient/authorized union representative agreed to proceed Subjective Ace is [...] 800 MG-TRIMETHOPRIM 160 MG TABLET Monse Chapin APRN.CNP Referring Provider: KARTHIK LINO [[id number]] Allergies As of Date: 09/17/2024 Noted Allergy Reaction CYCLOBENZAPRINE 07/22/2024 2 - Rash Date Reviewed: 09/17/2024 Reviewed by: Monse Chapin APRN.CNP - Fully Assessed Reason for Visit: Follow Up [171] Cmt: Redness to umbilicus 7 weeks after gallbladder removal Primary Visit Diagnosis:Incisional infection [T81.49XA] Order(s):BACTERIAL CULTURE AND GRAM STAIN, ABSCESS AND WOUND (AEROBIC CULTURE) [SQWCUL] Order #: [id number]. #:[id number] sulfamethoxazole-trimethopr im (BACTRIM DS) 800-160 mg per tabletTake 1 tablet by mouth two times a day for 5 days.Disp: 10 tabletRfl: 0 Prescriptions as of 09/17/2024 - sulfamethoxazole-trimethopr im (BACTRIM DS) 800-160 mg per tablet Take 1 tablet by mouth two times a day for 5 days. - omeprazole (PRILOSEC) 40 mg capsule Take [...] as needed. Problem List As Of Date 09/17/2024 Noted Resolved Gastroesophageal reflux disease [K21.9] 09/12/2022 Dizziness [R42] 07/03/2022 Headache [R51] 10/04/2022 Postural orthostatic tachycardia syndrome (POTS*05/17/2022 Pre-op examination [Z01.818] 02/06/2024 MIRTA (obstructive sleep apnea) [G47.33] 02/06/2024 BMI 39.0-39.9,adult [Z68.39] 02/06/2024 Attention-deficit hyperactivity disorder, unspe*04/03/2024 Thyroid nodule [E04.1] 07/24/2024 Anxiety and depression [F41.9, F32.A] 07/24/2024 VHD (valvular heart disease) [I38] 07/24/2024 Prescriptions ordered this encounter Disp Refills Start End SULFAMETHOXAZOLE 800 MG-TRIMETHOPRIM* 10 t* 0 09/17/2024 09/17/2024 Route: PO Sig: Take 1 tablet by mouth two times a day for 5 days. SULFAMETHOXAZOLE 800 MG-TRIMETHOPRIM* 10 t* 0 09/17/2024 09/22/2024 Route: PO Sig: Take 1 tablet by mouth two times a day for 5 days. Medications Discontinued During This Encounter Pre (more content not included)... Normal [facility] CNCOon 09-09-20[address]CO [address] Text Normal [facility] Basic Metabolic Profile (BMP )on 09-05-2024 BUN/CRE 18.2 RATIO Normal 10-20 [facility] Comment on above: Performed By: #### L 500.3400, L700.6800, L100.0100, L501.2450, L500.2500 ####[facility] [address] [place], [place], [phone] Calcium [Mass/Vol] 8.7 mg/dL Normal 7.6-11.0 [facility] Comment on above: Performed By: #### L 500.3400, L700.6800, L100.0100, L501.2450, L500.2500 ####[facility] [address] [place], [address] Chloride [Moles/Vol] 102 mmol/L Normal 98-108 [facility] Comment on above: Performed By: #### L 500.3400, L700.6800, L100.0100, L501.2450, L500.2500 ####[facility] [address] [place], [address] CO2 [Moles/Vol] 22.3 mmol/L Normal 21.0-32.0 [facility] Comment on above: Performed By: #### L 500.3400, L700.6800, L100.0100, L501.2450, L500.2500 ####[facility] [address] [place], [address] Creatinine [Mass/Vol] 0.81 mg/dL Normal 0.70-1.20 [facility] Comment on above: Performed By: #### L 500.3400, L700.6800, L100.0100, L501.2450, L500.2500 ####[facility] [address] [place], [address] ECRCL 121.66 ml/min Normal 50-250 [facility] Comment on above: Performed By: #### L 500.3400, L700.6800, L100.0100, L501.2450, L500.2500 ####[facility] [address] [place], [address] GAP 12 Normal 5-15 [facility] Comment on above: Performed By: #### L 500.3400, L700.6800, L100.0100, L501.2450, L500.2500 ####[facility] [address] [place], [address] GFR/1.73 sq M.predicted among non-blacks MDRD (S/P/Bld) [Vol rate/Area] 106 mL/min/{1.73_m2} Normal >60 [facility] Comment on above: Result Comment: mL/m in/1.73m2 CKD-EPI Creatinine Equation (2020) Performed By: #### L 500.3400, L700.6800, L100.0100, L501.2450, L500.2500 ####[facility] [address] [place], [address] Glucose [Mass/Vol] 99 mg/dL Normal 70-99 [facility] Comment on above: Performed By: #### L 500.3400, L700.6800, L100.0100, L501.2450, L500.2500 ####[facility] [address] [place], [address] Potassium [Moles/Vol] 4.0 mmol/L Normal 3.3-5.1 [facility] Comment on above: Performed By: #### L 500.3400, L700.6800, L100.0100, L501.2450, L500.2500 ####[facility] [address] [place], [address] Sodium [Moles/Vol] 136 mmol/L Normal 133-145 [facility] Comment on above: Performed By: #### L 500.3400, L700.6800, L100.0100, L501.2450, L500.2500 ####[facility] [address] [place], [address] Urea nitrogen [Mass/Vol] 15 mg/dL Normal 4-19 [facility] Comment on above: Performed By: #### L 500.3400, L700.6800, L100.0100, L501.2450, L500.2500 ####[facility] [address] [place], [address] CBC W/Diff, Automatedon 05-2 -2024 Absolute Lymph 1.78 X10 3/uL Normal 0.83-4.51 [facility] Comment on above: Performed By: #### L 500.3400, L700.6800, L100.0100, L501.2450, L500.2500 ####[facility] [address] [place], [address] Absolute Neut 6.5 X10 3/uL Normal 2.0-7.7 [facility] Comment on above: Performed By: #### L 500.3400, L700.6800, L100.0100, L501.2450, L500.2500 ####[facility] [address] [place], [address] Basophils/100 WBC (Bld) 0.7 % Normal 0-1 [facility] Comment on above: Performed By: #### L 500.3400, L700.6800, L100.0100, L501.2450, L500.2500 ####[facility] [address] [place], [address] Eosinophils/100 WBC (Bld) 1.2 % Normal 0-5 [facility] Comment on above: Performed By: #### L 500.3400, L700.6800, L100.0100, L501.2450, L500.2500 ####[facility] [address] [place], [address] Erythrocyte distribution width (RBC) [Ratio] 14.3 % Normal 11.6-14.6 [facility] Comment on above: Performed By: #### L 500.3400, L700.6800, L100.0100, L501.2450, L500.2500 ####[facility] [address] [place], [address] Hematocrit (Bld) [Volume fraction] 35.1 % Low 37-47 [facility] Comment on above: Performed By: #### L 500.3400, L700.6800, L100.0100, L501.2450, L500.2500 ####[facility] [address] [place], [address] Hemoglobin (Bld) [Mass/Vol] 11.1 g/dL Low 12.0-15.0 [facility] Comment on above: Performed By: #### L 500.3400, L700.6800, L100.0100, L501.2450, L500.2500 ####[facility] [address] [place], [address] IG% 0.300 Normal 0.0-0.9 [facility] Comment on above: Result Comment: IG% - Immature Granulocytes (promyelocytes, myelocytes andmetamyelocytes) > 1% indicates that a LEFT SHIFT is Present. Performed By: #### L 500.3400, L700.6800, L100.0100, L501.2450, L500.2500 ####[facility] [address] [place], [address] Lymphocytes/100 WBC (Bld) 19.7 % Normal 19-41 [facility] Comment on above: Performed By: #### L 500.3400, L700.6800, L100.0100, L501.2450, L500.2500 ####[facility] [address] [place], [address] MCH (RBC) [Entitic mass] 27.2 pg Normal 27.0-32.0 [facility] Comment on above: Performed By: #### L 500.3400, L700.6800, L100.0100, L501.2450, L500.2500 ####[facility] [address] [place], [address] MCHC (RBC) [Mass/Vol] 31.6 g/dL Low 32-36 [facility] Comment on above: Performed By: #### L 500.3400, L700.6800, L100.0100, L501.2450, L500.2500 ####[facility] [address] [place], [address] MCV (RBC) [Entitic vol] 86.0 fL Normal 81-99 [facility] Comment on above: Performed By: #### L 500.3400, L700.6800, L100.0100, L501.2450, L500.2500 ####[facility] [address] [place], [address] Monocytes/100 WBC (Bld) 5.8 % Normal 0-10 [facility] Comment on above: Performed By: #### L 500.3400, L700.6800, L100.0100, L501.2450, L500.2500 ####[facility] [address] [place], [address] Neutrophils/100 WBC (Bld) 72.3 % High 47-70 [facility] Comment on above: Performed By: #### L 500.3400, L700.6800, L100.0100, L501.2450, L500.2500 ####[facility] [address] [place], [address] Nucleated RBC (Bld) [#/Vol] 0 10*3/uL Normal 0-5 [facility] Comment on above: Performed By: #### L 500.3400, L700.6800, L100.0100, L501.2450, L500.2500 ####[facility] [address] [place], [address] Platelet mean volume (Bld) [Entitic vol] 10.2 fL Normal 6.2-12.0 [facility] Comment on above: Performed By: #### L 500.3400, L700.6800, L100.0100, L501.2450, L500.2500 ####[facility] [address] [place], [address] Platelets (Bld) [#/Vol] 302 10*3/uL Normal 150-450 [facility] Comment on above: Performed By: #### L 500.3400, L700.6800, L100.0100, L501.2450, L500.2500 ####[facility] [address] [place], [address] RBC (Bld) [#/Vol] 4.08 10*6/uL Low 4.2-5.4 [facility] Comment on above: Performed By: #### L 500.3400, L700.6800, L100.0100, L501.2450, L500.2500 ####[facility] [address] [place], [address] RDW SD 44.8 fl High 35.1-43.9 [facility] Comment on above: Performed By: #### L 500.3400, L700.6800, L100.0100, L501.2450, L500.2500 ####[facility] [address] [place], [address] WBC (Bld) [#/Vol] 9.0 10*3/uL Normal 4.4-11.0 [facility] Comment on above: Performed By: #### L 500.3400, L700.6800, L100.0100, L501.2450, L500.2500 ####[facility] [address] [place], [address] Emergency Department Summary on 09-05-2024 Emergency Department Summary Normal [facility] Lipaseon 09-05-2024 Lipase [Catalytic activity/Vol] 16 U/L Normal 13-75 [facility] Comment on above: Result Comment: Scarlett gonzalez note:LIPASE revised reference range effective 22.New Lipase methodology. Expected to produce lower valuesthan the previous assay method.NEW Reference Range: 13 - 75 U/L Performed By: #### L 500.3400, L700.6800, L100.0100, L501.2450, L500.2500 ####[facility] [address] [place], [address] Liver Profileon 05-23-2025 Albumin [Mass/Vol] 4.1 g/dL Normal 3.5-5.0 [facility] Comment on above: Performed By: #### L 500.3400, L700.6800, L100.0100, L501.2450, L500.2500 ####[facility] [address] [place], [address] ALK PHOS 100 U/L Normal 35-104 [facility] Comment on above: Performed By: #### L 500.3400, L700.6800, L100.0100, L501.2450, L500.2500 ####[facility] [address] [place], [address] ALT [Catalytic activity/Vol] 15 U/L Normal <=34 [facility] Comment on above: Performed By: #### L 500.3400, L700.6800, L100.0100, L501.2450, L500.2500 ####[facility] [facility] [address] [place], [address] AST [Catalytic activity/Vol] 22 U/L Normal <=31 [facility] Comment on above: Performed By: #### L 500.3400, L700.6800, L100.0100, L501.2450, L500.2500 ####[facility] [address] [place], [address] Bilirubin [Mass/Vol] 0.22 mg/dL Normal 0.00-1.30 [facility] Comment on above: Performed By: #### L 500.3400, L700.6800, L100.0100, L501.2450, L500.2500 ####[facility] [address] [place], [address] Bilirubin.direct [Mass/Vol] 0.11 mg/dL Normal 0.00-0.30 [facility] Comment on above: Performed By: #### L 500.3400, L700.6800, L100.0100, L501.2450, L500.2500 ####[facility] [address] [place], [address] Globulin (S) [Mass/Vol] 2.7 g/dL Normal 2.2-4.2 [facility] Comment on above: Performed By: #### L 500.3400, L700.6800, L100.0100, L501.2450, L500.2500 ####[facility] [address] [place], [address] T PROT 6.8 g/dL Normal 5.9-8.4 [facility] Comment on above: Performed By: #### L 500.3400, L700.6800, L100.0100, L501.2450, L500.2500 ####[facility] [address] [place], [address] ,Serum,hCG Quali.on 09-05-2024 HCG, SERUM QUAL Negative Normal [facility] Comment on above: Performed By: #### L 500.3400, L700.6800, L100.0100, L501.2450, L500.2500 ####[facility] [address] [place], [address] Urinalysis, Completeon 09-05 EPI,SQUAMOUS 0-5 SEEN Normal 5-10 [facility] Comment on above: Order Comment: CLEAN CATCH Performed By: #### L 400.0001 ####[facility] [address] [place], [address] RBC 0-5 SEEN Normal 0-5 [facility] Comment on above: Order Comment: CLEAN CATCH Performed By: #### L 400.0001 ####[facility] [address] [place], [address] WBC 0-5 SEEN Normal 0-5 [facility] Comment on above: Order Comment: CLEAN CATCH Performed By: #### L 400.0001 ####[facility] [address] [place], [address] BACTERIA 0 SEEN Normal None Seen [facility] Comment on above: Order Comment: CLEAN CATCH Performed By: #### L 400.0001 ####[facility] [address] [place], [address] Mucus Ql (Urine sed) 0 SEEN Normal [facility] Comment on above: Order Comment: CLEAN CATCH Performed By: #### L 400.0001 ####[facility] [address] [place], [address] US ABDOMEN LTDon 09-04-2024 US ABDOMEN LTD * * *Final Report* * * DATE OF EXAM: Sep 04 2024 11:18AM WRU 1064 - US ABDOMEN LTD / PROCEDURE REASON: Incisional pain * * * * Physician Interpretation * * * * Accession number: [id number] COMPARISON: INDICATION: Incisional pain EXAMINATION: US ABDOMEN LTD Technique: Sonographic assessment performed of the abdominal wall at the incision sites inferior and superior to the umbilicus. Images obtained and stored in a permanent archive. RESULT: See Impression IMPRESSION: In the region of the incision, inferior to the umbilicus there is a 0.5 cm small focal fluid collection. This can represent a postoperative seroma/hematoma. Cannot exclude an infection. Clinical correlation is recommended. In the region of the incision, superior to the umbilicus sonographic imaging shows no abnormality. Dice Person: PSCB Transcribe Date/Time: Sep 06 2024 2:48P Dictated by : GRACIE DODSON MD This examination was interpreted and the report reviewed and electronically signed by: GRACIE DODSON MD on Sep 06 2024 2:50PM EST [id number] Normal [facility] CNOVon 09-03-2024 CNOV Office Visit (GENSWS ) ACE LEONARDO ([id number]) 2 F Date Time Provider Department 09/03/24 9:00 AM MONSE CHAPIN During your visit today, we recorded the following information about you: Temperature Pulse Blood pressure 97.7 degrees 81/minute 130/84 Monse Chapin APRN.GRADE RECORDER 09/03/2024 9:57 AM Signed Ace is a patient I am following s/p lap amtty on 07/30/[address] Guo. I saw [...] there are any nerve injection options. - [employer] ABDOMEN [email or web address] Discussed treatment plan and patient voices understanding. Patient's questions answered appropriately. Return to the office as scheduled or as needed for worsening/no improvement. Monse Chapin APRN.GRADE RECORDER Referring Provider: KARTHIK LINO [[id number]] Allergies As of Date: 09/03/2024 Noted Allergy Reaction CYCLOBENZAPRINE 07/22/2024 2 - Rash Date Reviewed: 09/03/2024 Reviewed by: Monse Chapin APRN.GRADE RECORDER - Fully Assessed Reason for Visit: Post Op [174] Cmt: Glenda starr 07/30 Primary Visit Diagnosis:Incisional pain [L76.82] Order(s):Zando [[id number]] Order #: [id number] FUTURE Prescriptions as of 09/03/2024 - omeprazole (PRILOSEC) 40 mg capsule Take [...] as needed. Problem List As Of Date 09/03/2024 Noted Resolved Gastroesophageal reflux disease [K21.9] 09/12/2022 Dizziness [R42] 07/03/2022 Headache [R51] 10/04/2022 Postural orthostatic tachycardia syndrome (POTS*05/17/2022 Pre-op examination [Z01.818] 02/06/2024 MIRTA (obstructive sleep apnea) [G47.33] 02/06/2024 BMI 39. (more content not included)... Normal [facility] LEON[facility] ([id number]) 2 F Date Time Provider Department 09/02/24 LAUREN GUO During your visit today, we recorded the following information about you: Zofia Blanco MA 09/02/2024 4:50 PM Signed Pt has questions regarding pain at incision. Not improving. She states she does a lot of lifting at her job and it is very difficult. She is not sure if she should still be having this much pain at this point post op. 07/30 Glenda Matty. Pt aware that the lifting is most likely irritating the abdominal muscles, but asking if there is any recommendations or if she needs to be restricted further. Declined appt. Please review and advise. GOLDEN Dela Cruz Daniel P, MD 09/03/2024 10:17 AM Signed It is unusual for her to have this much pain being more than 6 weeks out from a lap matty. She should be seen by Kelechi Chapin in my office Allergies As of Date: 09/02/2024 Noted Allergy Reaction CYCLOBENZAPRINE 07/22/2024 2 - Rash Date Reviewed: 08/08/2024 Reviewed by: Kelechi Neil LPN - Fully Assessed Reason for Visit: Patient Question [4627] Patient Update [1234] Prescriptions as of 09/03/2024 - omeprazole (PRILOSEC) 40 mg capsule Take [...] as needed. Problem List As Of Date 09/02/2024 Noted Resolved Gastroesophageal reflux disease [K21.9] 09/12/2022 Dizziness [R42] 07/03/2022 Headache [R51] 10/04/2022 Postural orthostatic tachycardia syndrome (POTS*05/17/2022 Pre-op examination [Z01.818] 02/06/2024 MIRTA (obstructive sleep apnea) [G47.33] 02/06/2024 BMI 39.0-39.9,adult [Z68.39] 02/06/2024 Attention-deficit hyperactivity disorder, unspe*04/03/2024 Thyroid nodule [E04.1] 07/24/2024 Anxiety and depression [F41.9, F32.A] 07/24/2024 VHD (valvular heart disease) [I38] 07/24/2024 Encounter Status:Closed by ZOFIA BLANCO on 09/03/[address] [facility] Acute Abdomen Inc Cheston Acute Abdomen Inc Chest Normal [facility] 12 Lead EKG performed by [facility] on 08-27-2024 12 Lead EKG performed by [facility] Cardiology Visit Reporton Cardiology Visit Report [facility] CNCOon 08-12-2024 CNCO Letter Text Normal [facility] CNPNon 08-11-2024 CNPN Telephone (GENSWS) ACE LEONARDO ([id number]) 2 F Date Time Provider Department 08/11/24 LAUREN GUO GENSWS During your visit today, we recorded the following information about you: Brandie Nielson MA 08/11/2024 11:15 AM Signed Patient phones to request her return to work date be moved to this wed 08/13/2024. Patient reports intermittent dark urine today. Please advise. GOLDEN Gupta Billie, HERI 08/12/2024 10:04 AM Signed Letter printed for return to work with restrictions and placed at front edger for patient pickup. Phone call placed to patient informing of letter and restrictions. Allergies As of Date: 08/11/2024 Noted Allergy Reaction CYCLOBENZAPRINE 07/22/2024 2 - Rash Date Reviewed: 08/08/2024 Reviewed by: Kelechi Neil LPN - Fully Assessed Reason for Visit: Patient Question [9331] Cmt: Return to work letter Prescriptions as of 08/12/2024 - dicyclomine (BENTYL) 20 mg tablet Take [...] as needed. Problem List As Of Date 08/11/2024 Noted Resolved Gastroesophageal reflux disease [K21.9] 09/12/2022 Dizziness [R42] 07/03/2022 Headache [R51] 10/04/2022 Postural orthostatic tachycardia syndrome (POTS*05/17/2022 Pre-op examination [Z01.818] 02/06/2024 MIRTA (obstructive sleep apnea) [G47.33] 02/06/2024 BMI 39.0-39.9,adult [Z68.39] 02/06/2024 Attention-deficit hyperactivity disorder, unspe*04/03/2024 Thyroid nodule [E04.1] 07/24/2024 Anxiety and depression [F41.9, F32.A] 07/24/2024 VHD (valvular heart disease) [I38] 07/24/2024 Encounter Status:Closed by BRANDIE NIELSON on 08/12/24 [facility] CNOVon 08-08-2024 CNOV Office Visit (GENSWS ) ARISTEOACE FERGUSON ([id number]) 2 F Date Time Provider Department 08/08/24 8:30 AM MONSE CHAPIN GENSWS During your visit today, we recorded the following information about you: Temperature 98 degrees Monse Chapin APRN.GRADE RECORDER 08/08/2024 10:02 AM Signed SUBJECTIVE: Ace Leonardo presents for follow up [...] or concerns that may arise. Follow up: KAJAL Chapin APRN.GRADE RECORDER Referring Provider: KARTHIK LINO [[id number]] Allergies As of Date: 08/08/2024 Noted Allergy Reaction CYCLOBENZAPRINE 07/22/2024 2 - Rash Date Reviewed: 08/08/2024 Reviewed by: Kelechi Neil LPN - Fully Assessed Reason for Visit: Follow Up [171] Cmt: Gallbladder removed Primary Visit Diagnosis:Biliary dyskinesia [K82.8] Prescriptions as of 08/08/2024 - dicyclomine (BENTYL) 20 mg tablet Take [...] as needed. Problem List As Of Date 08/08/2024 Noted Resolved Gastroesophageal reflux disease [K21.9] 09/12/2022 Dizziness [R42] 07/03/2022 Headache [R51] 10/04/2022 Postural orthostatic tachycardia syndrome (POTS*05/17/2022 Pre-op examination [Z01.818] 02/06/2024 MIRTA (obstructive sleep apnea) [G47.33] 02/06/2024 BMI 39.0-39.9,adult [Z68.39] 02/06/2024 Attention-deficit hyperactivity disorder, unspe*04/03/2024 Thyroid nodule [E04.1] 07/24/2024 Anxiety and depression [F41.9, F32.A] 07/24/2024 VHD (valvular heart disease) [I38] 07/24/2024 Letter Text Letter Text Encounter Status:Closed by MONSE CHAPIN on 08/08/24 [facility] Daniel 08-05-2024 CNOV Office Visit (GENSWS ) ACE LEONARDO ([id number]) 2 F Date Time Provider Department 08/05/24 1:00 PM LAUREN GUO During your visit today, we recorded the following information about you: Temperature Pulse Respiration Blood pressure 98.2 degrees 101/minute 14/minute 127/87 Weight 97.8 kg Lauren Guo MD 08/05/2024 1:36 PM Signed Subjective: Patient status post laparoscopic cholecystectomy on [...] following up with Stephanie Chapin this Sunday. Allergies As of Date: 08/05/2024 Noted Allergy Reaction CYCLOBENZAPRINE 07/22/2024 2 - Rash Date Reviewed: 08/05/2024 Reviewed by: Natali Bustamante RN - Fully Assessed Reason for Visit: Post Op [174] Cmt: States incision has opened up surgery 07/30 gallbladder removed Primary Visit Diagnosis:Aftercare [Z51.89] Prescriptions as of 08/05/2024 - dicyclomine (BENTYL) 20 mg tablet Take [...] as needed. Problem List As Of Date 08/05/2024 Noted Resolved Gastroesophageal reflux disease [K21.9] 09/12/2022 Dizziness [R42] 07/03/2022 Headache [R51] 10/04/2022 Postural orthostatic tachycardia syndrome (POTS*05/17/2022 Pre-op examination [Z01.818] 02/06/2024 MIRTA (obstructive sleep apnea) [G47.33] 02/06/2024 BMI 39.0-39.9,adult [Z68.39] 02/06/2024 Attention-deficit hyperactivity disorder, unspe*04/03/2024 Thyroid nodule [E04.1] 07/24/2024 Anxiety and depression [F41.9, F32.A] 07/24/2024 VHD (valvular heart disease) [I38] 07/24/2024 Encounter Status:Closed by LAUREN GUO on 08/05/[address] [facility] Basic Metabolic Profile (BMP )on 08-01-2024 BUN/CRE 8.2 RATIO Low 10-20 [facility] Comment on above: Performed By: #### L 500.2500, L100.0100, L500.3400, L501.2450 ####[facility] [address] [place], [address] Calcium [Mass/Vol] 8.9 mg/dL Normal 7.6-11.0 [facility] Comment on above: Performed By: #### L 500.2500, L100.0100, L500.3400, L501.2450 ####[facility] [address] [place], [address] Chloride [Moles/Vol] 103 mmol/L Normal 98-108 [facility] Comment on above: Performed By: #### L 500.2500, L100.0100, L500.3400, L501.2450 ####[facility] [address] [place], [address] CO2 [Moles/Vol] 23.5 mmol/L Normal 21.0-32.0 [facility] Comment on above: Performed By: #### L 500.2500, L100.0100, L500.3400, L501.2450 ####[facility] [address] [place], [address] Creatinine [Mass/Vol] 0.85 mg/dL Normal 0.70-1.20 [facility] Comment on above: Performed By: #### L 500.2500, L100.0100, L500.3400, L501.2450 ####[facility] [address] [place], [address] ECRCL 113.84 ml/min Normal 50-250 [facility] Comment on above: Performed By: #### L 500.2500, L100.0100, L500.3400, L501.2450 ####[facility] [address] [place], [address] GAP 12 Normal 5-15 [facility] Comment on above: Performed By: #### L 500.2500, L100.0100, L500.3400, L501.2450 ####[facility] [address] [place], [address] GFR/1.73 sq M.predicted among non-blacks MDRD (S/P/Bld) [Vol rate/Area] 100 mL/min/{1.73_m2} Normal >60 [facility] Comment on above: Result Comment: mL/m in/1.73m2 CKD-EPI Creatinine Equation (2020) Performed By: #### L 500.2500, L100.0100, L500.3400, L501.2450 ####[facility] [address] [place], [address] Glucose [Mass/Vol] 94 mg/dL Normal 70-99 [facility] Comment on above: Performed By: #### L 500.2500, L100.0100, L500.3400, L501.2450 ####[facility] [address] [place], [address] Potassium [Moles/Vol] 3.7 mmol/L Normal 3.3-5.1 [facility] Comment on above: Performed By: #### L 500.2500, L100.0100, L500.3400, L501.2450 ####[facility] [address] [place], [address] Sodium [Moles/Vol] 138 mmol/L Normal 133-145 [facility] Comment on above: Performed By: #### L 500.2500, L100.0100, L500.3400, L501.2450 ####[facility] [address] [place], [address] Urea nitrogen [Mass/Vol] 7 mg/dL Normal 4-19 [facility] Comment on above: Performed By: #### L 500.2500, L100.0100, L500.3400, L501.2450 ####[facility] [address] [place], [address] CBC W/Diff, Automatedon 07-15 Absolute Lymph 3.06 X10 3/uL Normal 0.83-4.51 [facility] Comment on above: Performed By: #### L 500.2500, L100.0100, L500.3400, L501.2450 ####[facility] [address] [place], [address] Absolute Neut 3.7 X10 3/uL Normal 2.0-7.7 [facility] Comment on above: Performed By: #### L 500.2500, L100.0100, L500.3400, L501.2450 ####[facility] [address] [place], [address] Basophils/100 WBC (Bld) 0.8 % Normal 0-1 [facility] Comment on above: Performed By: #### L 500.2500, L100.0100, L500.3400, L501.2450 ####[facility] [address] [place], [address] Eosinophils/100 WBC (Bld) 0.8 % Normal 0-5 [facility] Comment on above: Performed By: #### L 500.2500, L100.0100, L500.3400, L501.2450 ####[facility] [address] [place], [address] Erythrocyte distribution width (RBC) [Ratio] 15.6 % High 11.6-14.6 [facility] Comment on above: Performed By: #### L 500.2500, L100.0100, L500.3400, L501.2450 ####[facility] [address] [place], [address] Hematocrit (Bld) [Volume fraction] 39.7 % Normal 37-47 [facility] Comment on above: Performed By: #### L 500.2500, L100.0100, L500.3400, L501.2450 ####[facility] [address] [place], [address] Hemoglobin (Bld) [Mass/Vol] 12.7 g/dL Normal 12.0-15.0 [facility] Comment on above: Performed By: #### L 500.2500, L100.0100, L500.3400, L501.2450 ####[facility] [address] [place], [address] IG% 0.300 Normal 0.0-0.9 [facility] Comment on above: Result Comment: IG% - Immature Granulocytes (promyelocytes, myelocytes andmetamyelocytes) > 1% indicates that a LEFT SHIFT is Present. Performed By: #### L 500.2500, L100.0100, L500.3400, L501.2450 ####[facility] [address] [place], [address] Lymphocytes/100 WBC (Bld) 40.2 % Normal 19-41 [facility] Comment on above: Performed By: #### L 500.2500, L100.0100, L500.3400, L501.2450 ####[facility] [address] [place], [address] MCH (RBC) [Entitic mass] 27.0 pg Normal 27.0-32.0 [facility] Comment on above: Performed By: #### L 500.2500, L100.0100, L500.3400, L501.2450 ####[facility] [address] [place], [address] MCHC (RBC) [Mass/Vol] 32.0 g/dL Normal 32-36 [facility] Comment on above: Performed By: #### L 500.2500, L100.0100, L500.3400, L501.2450 ####[facility] [address] [place], [address] MCV (RBC) [Entitic vol] 84.3 fL Normal 81-99 [facility] Comment on above: Performed By: #### L 500.2500, L100.0100, L500.3400, L501.2450 ####[facility] [address] [place], [address] Monocytes/100 WBC (Bld) 9.2 % Normal 0-10 [facility] Comment on above: Performed By: #### L 500.2500, L100.0100, L500.3400, L501.2450 ####[facility] [address] [place], [address] Neutrophils/100 WBC (Bld) 48.7 % Normal 47-70 [facility] Comment on above: Performed By: #### L 500.2500, L100.0100, L500.3400, L501.2450 ####[facility] [address] [place], [address] Nucleated RBC (Bld) [#/Vol] 0 10*3/uL Normal 0-5 [facility] Comment on above: Performed By: #### L 500.2500, L100.0100, L500.3400, L501.2450 ####[facility] [address] [place], [address] Platelet mean volume (Bld) [Entitic vol] 10.5 fL Normal 6.2-12.0 [facility] Comment on above: Performed By: #### L 500.2500, L100.0100, L500.3400, L501.2450 ####[facility] [address] [place], [address] Platelets (Bld) [#/Vol] 351 10*3/uL Normal 150-450 [facility] Comment on above: Performed By: #### L 500.2500, L100.0100, L500.3400, L501.2450 ####[facility] [address] [place], [address] RBC (Bld) [#/Vol] 4.71 10*6/uL Normal 4.2-5.4 [facility] Comment on above: Performed By: #### L 500.2500, L100.0100, L500.3400, L501.2450 ####[facility] [address] [place], [address] RDW SD 48.1 fl High 35.1-43.9 [facility] Comment on above: Performed By: #### L 500.2500, L100.0100, L500.3400, L501.2450 ####[facility] [address] [place], [address] WBC (Bld) [#/Vol] 7.6 10*3/uL Normal 4.4-11.0 [facility] Comment on above: Performed By: #### L 500.2500, L100.0100, L500.3400, L501.2450 ####[facility] [address] [place], [address] Emergency Department Summary on 08-01-2024 Emergency Department Summary Normal [facility] Lipaseon 08-01-2024 Lipase [Catalytic activity/Vol] 14 U/L Normal 13-75 [facility] Comment on above: Result Comment: Scarlett gonzalez note:LIPASE revised reference range effective 22.New Lipase methodology. Expected to produce lower valuesthan the previous assay method.NEW Reference Range: 13 - 75 U/L Performed By: #### L 500.2500, L100.0100, L500.3400, L501.2450 ####[facility] [address] [place], [address] Liver Profileon 08-01-2024 Albumin [Mass/Vol] 4.0 g/dL Normal 3.5-5.0 [facility] Comment on above: Performed By: #### L 500.2500, L100.0100, L500.3400, L501.2450 ####[facility] [address] [place], [address] ALK PHOS 144 U/L High 35-104 [facility] Comment on above: Performed By: #### L 500.2500, L100.0100, L500.3400, L501.2450 ####[facility] [address] [place], [address] ALT [Catalytic activity/Vol] 96 U/L High <=34 [facility] Comment on above: Performed By: #### L 500.2500, L100.0100, L500.3400, L501.2450 ####[facility] [address] [place], [address] AST [Catalytic activity/Vol] 130 U/L High <=31 [facility] Comment on above: Performed By: #### L 500.2500, L100.0100, L500.3400, L501.2450 ####[facility] [address] [place], [address] Bilirubin [Mass/Vol] 0.57 mg/dL Normal 0.00-1.30 [facility] Comment on above: Performed By: #### L 500.2500, L100.0100, L500.3400, L501.2450 ####[facility] [address] [place], [address] Bilirubin.direct [Mass/Vol] 0.34 mg/dL High 0.00-0.30 [facility] Comment on above: Performed By: #### L 500.2500, L100.0100, L500.3400, L501.2450 ####[facility] [address] [place], [address] Globulin (S) [Mass/Vol] 2.9 g/dL Normal 2.2-4.2 [facility] Comment on above: Performed By: #### L 500.2500, L100.0100, L500.3400, L501.2450 ####[facility] [address] [place], [address] T PROT 6.9 g/dL Normal 5.9-8.4 [facility] Comment on above: Performed By: #### L 500.2500, L100.0100, L500.3400, L501.2450 ####[facility] [address] [place], [address] ,Serum,hCG Quali.on 08-01-2024 HCG, SERUM QUAL Negative Normal [facility] Comment on above: Performed By: #### L 700.6800 ####[facility] [address] [place], [address] Protein, Urine (Random)on PROTEIN,UR.RAN. < 6.0 Normal 0.0-12.0 [facility] Comment on above: Performed By: #### L 501.1930, L400.0001 ####[facility] [address] [place], [address] Urinalysis, Completeon 08-01 EPI,SQUAMOUS 0-5 SEEN Normal 5-10 [facility] Comment on above: Order Comment: BRITANY CTOR TO SPECIFY Performed By: #### L 501.1930, L400.0001 ####[facility] [address] [place], [address] RBC 0-5 SEEN Normal 0-5 [facility] Comment on above: Order Comment: BRITANY CTOR TO SPECIFY Performed By: #### L 501.1930, L400.0001 ####[facility] [address] [place], [address] BACTERIA 0 SEEN Normal None Seen [facility] Comment on above: Order Comment: BRITANY CTOR TO SPECIFY Performed By: #### L 501.1930, L400.0001 ####[facility] [address] [place], [address] Mucus Ql (Urine sed) 0 SEEN Normal [facility] Comment on above: Order Comment: COLLE CTOR TO SPECIFY Performed By: #### L 501.1930, L400.0001 ####[facility] [facility] [address] [place], [address] WBC 0 SEEN Normal 0-5 [facility] Comment on above: Order Comment: COLLE CTOR TO SPECIFY Performed By: #### L 501.1930, L400.0001 ####[facility] [address] [place], [address] CNPNon 07-31-2024 [facility] Telephone (GENSWS) ACE LEONARDO ([id number]) 2 F Date Time Provider Department 07/31/24 LAUREN GUO GENSWS During your visit today, we recorded the following information about you: Stepahnie Cuevas MA 07/31/2024 10:16 AM Signed Patient called in s/p glenda starr on 07/30/2024. She reports pain 7/10. She gets some relief from percocet use for about 2 hours. Last dose today was at 0800. She is also taking naproxen without any relief. She would like to speak with nurse from the office. Please contact the patient back at [phone]. Rox Ruiz RN 07/31/2024 12:12 PM Signed Patient called back again reporting continued pain with minimal relief from Percocet. Patient encouraged to get up and walk. Educated patient on gas pains. Patient also informed that gasx may help. Patient informed that if her pain is increasing and if she is having concerns to go the ED for evaluation if needed. HERI John Danelle, RN 07/31/2024 4:07 PM Signed Patient called again asking for an update on message. HERI John Amelia, LPN 08/04/2024 3:33 PM Signed Patient called into office to provide update [...] hr as needed for pain. Please advise. RAUL Howard Deborah, RN 08/04/2024 3:54 PM Signed Post op appt made to see Dr Guo tomorrow due to purulent umbilical drainage . Encounter closed. Allergies [...] Encounter Status:Closed by BHUMI FELIZ on 08/04/24 [facility] ANES POSTPROC EVALon 025 ANES POSTPROC EVAL HNO ID: [id number] Author: BRANDIE ZULUAGA MD Service: Anesthesiology Author Type: Anesthesiologist Type: Anesthesia Postprocedure Evaluation Filed: 07/30/2024 11:45 Note Text: POST ANESTHESIA EVALUATION NOTE : 2000 Procedure Summary Date: 07/30/24 Room / Location: [place] OR / [place] Anesthesia Start: 1014 Anesthesia Stop: 1113 Procedure: LAPAROSCOPIC CHOLECYSTECTOMY POSSIBLE OPEN (Abdomen) Diagnosis: Biliary dyskinesia RUQ abdominal pain (Biliary dyskinesia [K82.8]) (RUQ abdominal pain [R10.11]) Surgeons: Lauren Guo MD Responsible Provider: Bossman Jasmine MD [...] July 30, 2024 TIME: 11:45 AM CSN: [id number] [facility] ANES PRE-OPon 07-30-2024 ANES PRE-OP HNO ID: [id number] Author: BOSSMAN JASMINE MD Service: Anesthesiology Author Type: Anesthesiologist Type: Anesthesia Preprocedure Evaluation Filed: 07/30/2024 09:29 Note Text: ANESTHESIOLOGY DAY OF SURGERY NOTE : 2000 Procedure Information Date/Time: 07/30/24 0954 Procedure: LAPAROSCOPIC CHOLECYSTECTOMY POSSIBLE OPEN (Abdomen) Location: [place] / [place] Surgeons: Lauren Guo MD Estimated body mass index is [...] and consent discussed: yes. Patient / Responsible Republican agrees to proceed: yes Patient / Surrogate [...] July 30, 2024 TIME: 9:29 AM CSN: [id number] [facility] ECG COMPLETEon 07-30-2024 ECG COMPLETE Ventricular Rate : 1 37 BPM Atrial Rate : 137 BPM P-R Interval : 128 ms QRS Duration : 84 ms Q-T Interval : 378 ms QTC Calculation(Bazett) : 570 ms Calculated P [place] : 40 degrees Calculated R [place] : 50 degrees Calculated T [place] : 39 degrees SINUS TACHYCARDIA NONSPECIFIC T WAVE ABNORMALITY ABNORMAL ECG NO PREVIOUS ECGS AVAILABLE Confirmed by MD SMILEY QARAB ([id number]) on 07/30/2024 5:03:09 PM NAME : ACE LEONARDO PID : [id number] : 2000 Gender : Female Race : ORD : [id number] Procedure Date : Jul 30 2024 12:45:05 Edit Date : Jul 30 2024 17:03:10 Diagnosis: SINUS TACHYCARDIA NONSPECIFIC T WAVE ABNORMALITY ABNORMAL ECG NO PREVIOUS ECGS AVAILABLE Confirmed by MD SMILEY QARAB ([id number]) on 07/30/2024 5:03:09 PM Test Reason : Arrhythmia Location : 24 : PACU POOL Overread By : MD SMILEY QARAB Edited By : MD SMILEY QARAB Referred By : , Acquired by : Marcos anderson [facility] HISTORY PHYSICALon HISTORY PHYSICAL HNO ID: [id number] Author: LAUREN GUO MD Service: General Surgery Author Type: Physician Type: H&P Filed: 07/30/2024 09:39 Note Text: HISTORY AND PHYSICAL Ace Leonardo 2000 REFERRING PHYSICIAN: Karthik Lino MD, MD CHIEF COMPLAINT: Consult (hernia) [...] me today at the request of Dr. Karthik Lino MD, MD for my opinion and [...] SENSIMIST) 27.5 mcg/actuation nasal spray Use 1 [place] in each nostril two times a day. [...] pattern. Cardiac: (more content not included)... Normal [facility] OPERATIVE NOon 07-30-2024 OPERATIVE NO HNO ID: [id number] Author: LAUREN GUO MD Service: General Surgery Author Type: Physician Type: Operative Report Filed: 07/30/2024 10:59 Note Text: OPERATIVE/PROCEDURE REPORT LOG ID: [id number] SURGERY/PROCEDURE DATE: 07/30/2024 INCISION/PROCEDURE START TIME: 10:30 AM INCISION CLOSE/PROCEDURE END TIME: 10:57 AM SURGEON(S)/PROCEDURALIST(S) AND FLOOR SANDER(S): Surgeons and Role: * Lauren Guo MD - Primary Physician Green Inspector: Leeanne Koenig PA-C SURGERY/PROCEDURE(S): Laparoscopic cholecystectomy ANESTHESIA: General SURGERY/PROCEDURE DETAILS: Patient was brought in the operating room. Placed in supine position. Under excellent general anesthetic the abdomen was sterilely prepped and draped in usual fashion. Local was injected in for umbilically. Dissection was carried down to the fascia. Fascia was grasped with a Lesley. Ruiz's needles placed inside the abdomen. The [...] fascia at the umbilical port with a mzbdwv-fw-ftcst stitch of 0 Vicryl. Skin incisions were closed with subcuticular stitches of 4-0 Monocryl. Steri-Strips were applied sterile dressings were applied and the patient tolerated the procedure well. Leeanne Koenig PA-C was my financial sales assistant. She assisted with retraction, visualization and performed skin closure. No additional surgeons or qualified residents were available. PRE-OP/PRE-PROCEDURE DIAGNOSIS: Biliary dyskinesia (hyperkinesia) POST-OP/POST-PROCEDURE DIAGNOSIS: Same as Preop ESTIMATED BLOOD LOSS: < 20 mls SPECIMENS: Gallbladder IMPLANTABLE DEVICES: NONE DRAINS: None COMPLICATIONS: None CLOSURE TECHNIQUE: Primary PARTICIPATION IN SURGERY/PROCEDURE: I/primary surgeon/proceduralist performed the procedure with assistance. SIGNATURE: Lauren Guo III, MD PATIENT NAME: Ace Leonardo DATE: July 30, 2024 TIME: 10:56 AM [facility] Pathology biopsy report Howard (Tiss)on 07-30-2024 AP DISCLAIMER [facility] Comment on above: Order Comment: Speci men Type: TISSUE SPECIMENOrdering Facility: [facility] Address: [address] [place], [place] [address] Result Comment: Gutierrez Novoa Test (LDT) Disclaimer: Performance characteristics of immunohistochemical, immunofluorescent, and chromogenic in-situ hybridization tests have been determined by the performing laboratory within [facility] Tom Ricky Jaeger Pathology and Laboratory Medicine Department ([facility], [facility], [facility], [facility], [facility], [facility], or [facility]) in a manner consistent with CLIA requirements. One or more of these tests may not have been cleared or approved by the FDA. RT-PLM is regulated under CLIA as qualified to perform high-complexity testing. These tests are used for clinical purposes. These should not be regarded as investigational or for research. Positive and negative controls stain appropriately. Performed By: #### 6 6121-5 ####[facility] LABCLIA [id number] [address] CASE REPORT [facility] Comment on above: Order Comment: Speci men Type: TISSUE SPECIMENOrdering Facility: [facility] Address: [address] [place] [address] Result Comment: Surg [facility] Pathology Report Case: [id number] Authorizing Provider: Lauren Guo MD Collected: 07/30/2024 10:38 AM Ordering Location: [facility] Surgery Received: 07/30/2024 12:47 PM Pathologist: Yuri Garcia MD Specimen: Gallbladder, gallbladder Performed By: #### 6 6121-5 ####[facility] LABCLIA [id number] [address] CLINICAL HISTORY Normal [facility] Comment on above: Order Comment: Speci men Type: TISSUE SPECIMENOrdering Facility: [facility] Address: [address] [place] [address] Result Comment: Pre- op diagnosis: Biliary dyskinesia [K82.8] RUQ abdominal pain [R10.11] Performed By: #### 6 6121-5 ####[facility] LABCLIA [id number] [address], [address] FINAL DIAGNOSIS [facility] Comment on above: Order Comment: Speci men Type: TISSUE SPECIMENOrdering Facility: [facility] Address: [address] [place] [address] Result Comment: Gall bladder, cholecystectomy: - Chronic cholecystitis with cholesterolosis. at 1701 EDT Performed By: #### 6 6121-5 ####[facility] LABCLIA [id number] [address] [address] [facility] FINAL PERFORMING LAB Normal [facility] Comment on above: Order Comment: Speci men Type: TISSUE SPECIMENOrdering Facility: [facility] Address: [address] [place] [address] Result Comment: Diag nostic interpretation performed at: [facility], [address] [place], [place] [address]k [place] [address] CLIA# [id number] Computer Programming Manager: Mario Glez MD Performed By: #### 6 6121-5 ####[facility] LABIA [id number] [address] [place] GROSS DESCRIPTION A. Gallbladder Normal [facility] Comment on above: Order Comment: Speci men Type: TISSUE SPECIMENOrdering Facility: [facility] Address: [address] [place] [address] Result Comment: Rece ived in formalin labeled [...] is pascual-brown, velvety with diffuse yellow stippling. [employer] Custodian sections are submitted in A1. Gross examination performed at [facility], [address] [place] [address] MSL/ELOISA 07/30/24 3:53 PM Performed By: #### 6 6121-5 ####[facility] LABIA [id number] [address] [place] 5-HIAA 24 HR URon 07-29-2024 5-HIAA, Urine 3.8 mg/L Normal Undefined [facility] Comment on above: Order Comment: Test( s) 079595-4-FPDA, Urinewas developed and its performance characteristicsdetermined by [facility]. It has not been cleared or approvedby the Food and Drug Administration.800 Performed By: #### L 3700.1000, L3600.2500 ####[facility] [address] [place], [place], [address] 5-HIAA,U, 24 HR 3.0 mg/24 hr Normal 0.0-14.9 [facility] Comment on above: Order Comment: Test( s) 841368-1-DIDC, Urinewas developed and its performance characteristicsdetermined by [facility]. It has not been cleared or approvedby the Food and Drug Administration.800 Result Comment: Perf ormed at: [facility] Lab[address] [id number] Director: Kiki Tyson MD, Phone: [phone] Performed By: #### L 3700.1000, L3600.2500 ####[facility] [address] [place], [address] [facility] (FunbuiltMISSYS) ACE LEONARDO ([id number]) 2 F Date Time Provider Department 07/28/24 LAUREN GUO During your visit today, we recorded the following information about you: Vera Nicholson RN 07/28/2024 11:17 AM Signed [facility] paperwork filled out, scanned in [facility], and placed at front edger for pickup, Pt contacted by phone and verbalized understanding.Vera Nicholson RN Allergies As of Date: 07/28/2024 Noted Allergy Reaction CYCLOBENZAPRINE 07/22/2024 2 - Rash Date Reviewed: 07/24/2024 Reviewed by: Margo Johnson APRN.GRADE RECORDER - Fully Assessed Prescriptions as of 07/29/2024 [...] Status:Closed by VERA NICHOLSON on 07/29/[address] [facility] Copper, 24 HR URon WAIT STAFF/WATCH ELECTRICIAN RATIO 6 ug/g creat Normal 0-49 [facility] Comment on above: Order Comment: Test( s) 454241-Jheavj, Urinewas developed and its performance characteristicsdetermined by [facility]. It has not been cleared or approvedby the Food and Drug Administration. Result Comment: PER CHARGE NURSE PATIENT WAS DISCHARGED AND DR. AYDEE KEENE Performed By: #### L 3700.1000, L3600.2500 ####[facility] [address] [place], [address] COPPER, U24 72 ug/24 hr High 3-35 [facility] Comment on above: Order Comment: Test( s) 564420-Pgbguh, Urinewas developed and its performance characteristicsdetermined by [facility]. It has not been cleared or approvedby the Food and Drug Administration. Result Comment: Perf ormed at: [facility], [place], [place] [id number] Director: Rayna Tolbert MD, Phone: [phone] at: [facility] Labco[address] [id number] Director: Kiki Tyson MD, Phone: [phone] Performed By: #### L 3700.1000, L3600.2500 ####[facility] [address] [place], [address] COPPER,UR 9 ug/L Normal Not Estab. [facility] Comment on above: Order Comment: Test( s) 281864-Mfzjux, Urinewas developed and its performance characteristicsdetermined by [facility]. It has not been cleared or approvedby the Food and Drug Administration. Result Comment: Dete ction Limit = 1 Performed By: #### L 3700.1000, L3600.2500 ####[facility] [address] [place], [address] CREATININE 1.45 g/L Normal 0.30-3.00 [facility] Comment on above: Order Comment: Test( s) 767351-Jracpg, Urinewas developed and its performance characteristicsdetermined by [facility]. It has not been cleared or approvedby the Food and Drug Administration. Result Comment: Dete ction Limit = 0.10 Performed By: #### L 3700.1000, L3600.2500 ####[facility] [address] [place], [address] ANCAon 07-25-2024 Atypical pANCA <1:20 Normal Neg:<1:20 [facility] Comment on above: Order Comment: Test( s) 239092-Tzdohh, Serum or Plasmawas developed and its performance characteristicsdetermined by [facility]. It has not been cleared or approvedby the Food and Drug Administration. Result Comment: The atypical pANCA pattern has been observed in asignificant percentage of patients with ulcerative colitis,primary sclerosing cholangitis and autoimmune hepatitis. Performed By: #### L 3300.1200, L501.3620, L501.6710, L3100.5440, L101.9900, L504.2610, L3300.1800, L501.9520, L3300.0100, L3400.0700, L3900.2100 ####[facility] [address] [place], [address] Cytoplasmic Ab <1:20 Normal Neg:<1:20 [facility] Comment on above: Order Comment: Test( s) 308262-Iyiqhc, Serum or Plasmawas developed and its performance characteristicsdetermined by [facility] [employer]. It has not been cleared or approvedby the Food and Drug Administration. Performed By: #### L 3300.1200, L501.3620, L501.6710, L3100.5440, L101.9900, L504.2610, L3300.1800, L501.9520, L3300.0100, L3400.0700, L3900.2100 ####[facility] [address] [place], [address] Perinuclear Ab. <1:20 Normal Neg:<1:20 [facility] Comment on above: Order Comment: Test( s) 476291-Tckvdh, Serum or Plasmawas developed and its performance characteristicsdetermined by [facility] [employer]. It has not been cleared or approvedby the Food and Drug Administration. Result Comment: The presence of positive fluorescence exhibiting P-ANCA orC-ANCA patterns alone is not specific for the diagnosis ofWegener's Granulomatosis (WG) or microscopic polyangiitis.Decisions about treatment should not be based solely onANCA IFA results. The International ANCA Group Consensusrecommends follow up testing of positive sera with both AR-3 and MPO-ANCA enzyme immunoassays. As many as 5% serumsamples are positive only by EIA. Ref. AM J Clin Fjquvt3934;111:507-513. Performed By: #### L 3300.1200, L501.3620, L501.6710, L3100.5440, L101.9900, L504.2610, L3300.1800, L501.9520, L3300.0100, L3400.0700, L3900.2100 ####[facility] [address] [place], [address] Ceruloplasminon 07-25-2024 CERULOPLASMIN 38.8 mg/dL Normal 19.0-39.0 [facility] Comment on above: Order Comment: Test( s) [id number]-Ocsvfn, Serum or Plasmawas developed and its performance characteristicsdetermined by [facility] [employer]. It has not been cleared or approvedby the Food and Drug Administration. Performed By: #### L 3300.1200, L501.3620, L501.6710, L3100.5440, L101.9900, L504.2610, L3300.1800, L501.9520, L3300.0100, L3400.0700, L3900.2100 ####[facility] [address] [place], [address] Copper, Serum or Plasmaon COPPER, SERUM 151 ug/dL Normal 80-158 [facility] Comment on above: Order Comment: Test( s) 482823-Rlxwpu, Serum or Plasmawas developed and its performance characteristicsdetermined by [facility] [employer]. It has not been cleared or approvedby the Food and Drug Administration. Result Comment: Dete ction Limit = 5Performed at: [facility] [id number] Director: Rodney Jonas PhD, Phone: [phone] at: [place] [address] [place], [place] [id number] Director: Kiki Tyson MD, Phone: [phone] Performed By: #### L 3300.1200, L501.3620, L501.6710, L3100.5440, L101.9900, L504.2610, L3300.1800, L501.9520, L3300.0100, L3400.0700, L3900.2100 ####[facility] [address] [place], [place], [address] Gastrin, Serumon 07-25-2024 GASTRIN 97 pg/mL Normal 0-115 [facility] Comment on above: Order Comment: Test( s) [id number]-Lrevmy, Serum or Plasmawas developed and its performance characteristicsdetermined by [employer]. It has not been cleared or approvedby the Food and Drug Administration. Result Comment: [facility] Immulite 2000 Immunochemiluminometric assay (ICMA)Values obtained with different assay methods or kits cannotbe used interchangeably. Results cannot be interpreted asabsolute evidence of the presence or absence of malignantdisease. Performed By: #### L 3300.1200, L501.3620, L501.6710, L3100.5440, L101.9900, L504.2610, L3300.1800, L501.9520, L3300.0100, L3400.0700, L3900.2100 ####[facility] [address] [place], [place], [address] Gastroenterology Visit Repor ton 07-25-2024 Gastroenterology Visit Report Normal [facility] Hemoglobin A1con 07-25-2024 HbA1c (Bld) [Mass fraction] 5.5 % Normal <=5.6 [facility] Comment on above: Result Comment: Norm al < 5.7 % Prediabetic 5.7 - 6.4 % Diabetic >or= 6.5 % Please note range changes. Performed By: #### L 501.3453 ####[facility] [address] [place], [address] CBC W Auto Differential pane l (Bld)on 07-24-2024 Basophils (Bld) [#/Vol] 0.03 10*3/uL [facility] Basophils/100 WBC (Bld) 0.6 % [facility] Differential cell count method Nom (Bld) Auto [facility] Eosinophils (Bld) [#/Vol] 0.1 10*3/uL [facility] Eosinophils/100 WBC (Bld) 2 % [facility] Erythrocyte distribution width (RBC) [Ratio] 14.9 % 11.5 - 15.0 % [facility] Hematocrit (Bld) [Volume fraction] 38.7 % 36.0 - 46.0 % [facility] Hemoglobin (Bld) [Mass/Vol] 12.3 g/dL 11.5 - 15.5 g/dL [facility] Immature granulocytes (Bld) [#/Vol] [facility] Immature granulocytes/100 WBC (Bld) 0.2 % [facility] Lymphocytes (Bld) [#/Vol] 1.58 10*3/uL [facility] Lymphocytes/100 WBC (Bld) 31 % [facility] MCH (RBC) [Entitic mass] 26.8 pg 26.0 - 34.0 pg [facility] MCHC (RBC) [Mass/Vol] 31.8 g/dL 30.5 - 36.0 g/dL [facility] MCV (RBC) [Entitic vol] 84.3 fL 80.0 - 100.0 fL [facility] Monocytes (Bld) [#/Vol] 0.52 10*3/uL [facility] Monocytes/100 WBC (Bld) 10.2 % [facility] Neutrophils (Bld) [#/Vol] 2.86 10*3/uL [facility] Neutrophils/100 WBC (Bld) 56 % [facility] Nucleated RBC (Bld) [#/Vol] [facility] Nucleated RBC/100 WBC (Bld) [Ratio] 0 % /100 WBC [facility] Platelet mean volume (Bld) [Entitic vol] 10.9 fL 9.0 - 12.7 fL [facility] Platelets (Bld) [#/Vol] 252 10*3/uL [facility] RBC (Bld) [#/Vol] 4.59 10*6/uL 3.90 - 5.2 0 m/uL [facility] WBC (Bld) [#/Vol] 5.1 10*3/uL [facility] Basophils (Bld) [#/Vol] 0.03 10*3/uL Normal <0.11 [facility] Comment on above: Order Comment: Speci men Type: BLOOD SPECIMENOrdering Facility: [facility] Address: [address] [place] [address] Performed By: #### 5 7021-8 ####[facility] [id number] [place] [address] [place] Basophils/100 WBC (Bld) 0.6 % Normal [facility] Comment on above: Order Comment: Speci men Type: BLOOD SPECIMENOrdering Facility: [facility] Address: [address] [place] [address] Performed By: #### 5 7021-8 ####[facility] [id number] [place] [address] [place] Differential cell count method Nom (Bld) Auto Normal [facility] Comment on above: Order Comment: Speci men Type: BLOOD SPECIMENOrdering Facility: [facility] Address: [address] [place] [address] Performed By: #### 5 7021-8 ####[facility] [id number] [place] [address] [place] Eosinophils (Bld) [#/Vol] 0.10 10*3/uL Normal <0.46 [facility] Comment on above: Order Comment: Speci men Type: BLOOD SPECIMENOrdering Facility: [facility] Address: [address] [place] [address] Performed By: #### 5 7021-8 ####[facility] [id number] [place] [address] [place] Eosinophils/100 WBC (Bld) 2.0 % Normal [facility] Comment on above: Order Comment: Speci men Type: BLOOD SPECIMENOrdering Facility: [facility] Address: [address] [place] [address] Performed By: #### 5 7021-8 ####[facility] [id number] [place] [address] [place] Erythrocyte distribution width (RBC) [Ratio] 14.9 % Normal 11.5-15.0 [facility] Comment on above: Order Comment: Speci men Type: BLOOD SPECIMENOrdering Facility: [facility] Address: [address] [place] [address] Performed By: #### 5 7021-8 ####[facility] [id number] [place] [address] [place] Hematocrit (Bld) [Volume fraction] 38.7 % Normal 36.0-46.0 [facility] Comment on above: Order Comment: Speci men Type: BLOOD SPECIMENOrdering Facility: [facility] Address: [address] [place] [address] Performed By: #### 5 7021-8 ####[facility] [id number] [place] [address] [place] Hemoglobin (Bld) [Mass/Vol] 12.3 g/dL Normal 11.5-15.5 [facility] Comment on above: Order Comment: Speci men Type: BLOOD SPECIMENOrdering Facility: [facility] Address: [address] [place] [address] Performed By: #### 5 7021-8 ####[facility] [id number] [place] [address] [place] Immature granulocytes (Bld) [#/Vol] 10*3/uL Normal <0.10 [facility] Comment on above: Order Comment: Speci men Type: BLOOD SPECIMENOrdering Facility: [facility] Address: [address] [place] [address] Performed By: #### 5 7021-8 ####[facility] YOLETTEWNCLIA [id number] [place] [address] [place] [facility] Immature granulocytes/100 WBC (Bld) 0.2 % Normal [facility] Comment on above: Order Comment: Speci men Type: BLOOD SPECIMENOrdering Facility: [facility] Address: [address] [place] [address] Performed By: #### 5 7021-8 ####[facility] [id number] [place] [address] [place] Lymphocytes (Bld) [#/Vol] 1.58 10*3/uL Normal 1.00-4.00 [facility] Comment on above: Order Comment: Speci men Type: BLOOD SPECIMENOrdering Facility: [facility] Address: [address] [place] [address] Performed By: #### 5 7021-8 ####[facility]ITALNCLIA [id number] [address] [place] Lymphocytes/100 WBC (Bld) 31.0 % Normal [facility] Comment on above: Order Comment: Speci men Type: BLOOD SPECIMENOrdering Facility: [facility] Address: [address] [place] [address] Performed By: #### 5 7021-8 ####[facility] [id number] [place] [address] [place] MCH (RBC) [Entitic mass] 26.8 pg Normal 26.0-34.0 [facility] Comment on above: Order Comment: Speci men Type: BLOOD SPECIMENOrdering Facility: [facility] Address: [address] [place] [address] Performed By: #### 5 7021-8 ####[facility] [id number] [place] [address] [place] MCHC (RBC) [Mass/Vol] 31.8 g/dL Normal 30.5-36.0 [facility] Comment on above: Order Comment: Speci men Type: BLOOD SPECIMENOrdering Facility: [facility] Address: [address] [place] [address] Performed By: #### 5 7021-8 ####[facility] [id number] [place] [address] [place] MCV (RBC) [Entitic vol] 84.3 fL Normal 80.0-100.0 [facility] Comment on above: Order Comment: Speci men Type: BLOOD SPECIMENOrdering Facility: [facility] Address: [address] [place] [address] Performed By: #### 5 7021-8 ####[facility] [id number] [place] [address] [place] Monocytes (Bld) [#/Vol] 0.52 10*3/uL Normal <0.87 [facility] Comment on above: Order Comment: Speci men Type: BLOOD SPECIMENOrdering Facility: [facility] Address: [address] [place] [address] Performed By: #### 5 7021-8 ####[facility] [id number] [place] [address] [place] Monocytes/100 WBC (Bld) 10.2 % Normal [facility] Comment on above: Order Comment: Speci men Type: BLOOD SPECIMENOrdering Facility: [facility] Address: [address] [place] [address] Performed By: #### 5 7021-8 ####[facility]ITALNCLIA [id number] [place] [address] [place] Neutrophils (Bld) [#/Vol] 2.86 10*3/uL Normal 1.45-7.50 [facility] Comment on above: Order Comment: Speci men Type: BLOOD SPECIMENOrdering Facility: [facility] Address: [address] [place] [address] Performed By: #### 5 7021-8 ####[facility] [id number] [place] [address] [place] Neutrophils/100 WBC (Bld) 56.0 % Normal [facility] Comment on above: Order Comment: Speci men Type: BLOOD SPECIMENOrdering Facility: [facility] Address: [address] [place] [address] Performed By: #### 5 7021-8 ####[facility] [id number] [place] [address] [place] Nucleated RBC (Bld) [#/Vol] 10*3/uL Normal <0.01 [facility] Comment on above: Order Comment: Speci men Type: BLOOD SPECIMENOrdering Facility: [facility] Address: [address] [place] [address] Performed By: #### 5 7021-8 ####[facility] [id number] [place] [address] [place] Nucleated RBC/100 WBC (Bld) [Ratio] 0.0 /[address] [facility] Comment on above: Order Comment: Speci men Type: BLOOD SPECIMENOrdering Facility: [facility] Address: [address] [place] [address] Performed By: #### 5 7021-8 ####[facility] [id number] [place] [address] [place] Platelet mean volume (Bld) [Entitic vol] 10.9 fL Normal 9.0-12.7 [facility] Comment on above: Order Comment: Speci men Type: BLOOD SPECIMENOrdering Facility: [facility] Address: [address] [place] [address] Performed By: #### 5 7021-8 ####[facility] SHAWNNCLIA [id number] [place] [address] [place] Platelets (Bld) [#/Vol] 252 10*3/uL Normal 150-400 [facility] Comment on above: Order Comment: Speci men Type: BLOOD SPECIMENOrdering Facility: [facility] Address: [address] [place] [address] Performed By: #### 5 7021-8 ####[facility] YOLETTEPorterNCLIA [id number] [place] [address] [place] [facility] RBC (Bld) [#/Vol] 4.59 10*6/uL Normal 3.90-5.20 [facility] Comment on above: Order Comment: Speci men Type: BLOOD SPECIMENOrdering Facility: [facility] Address: [address] [place] [address] Performed By: #### 5 7021-8 ####[facility] [id number] [place] [address] [place] WBC (Bld) [#/Vol] 5.10 10*3/uL Normal 3.70-11.00 [facility] Comment on above: Order Comment: Speci men Type: BLOOD SPECIMENOrdering Facility: [facility] Address: [address] [place] [address] Performed By: #### 5 7021-8 ####[facility]ITALNCLIA [id number] [address] [place] Diann 07-24-2024 [place] [facility] ACE LEONARDO ([id number]) 2 F Date Time Provider Department 07/24/24 LAUREN GUO During your visit today, we recorded the following information about you: Kurtis Agudelo RN 07/24/2024 3:34 PM Signed Call [...] advise. Pt prefers a phone call back. Kurtis Agudelo RN July 24, 2024 3:33 PM aLuren Guo MD 07/25/2024 10:19 AM Signed Montez can you try to add her on sooner Allergies As of Date: 07/24/2024 Noted Allergy Reaction CYCLOBENZAPRINE 07/22/2024 2 - Rash Date Reviewed: 07/24/2024 Reviewed by: Margo Johnson APRN.GRADE RECORDER - Fully Assessed Reason for Visit: Patient Question [6367] Medication Request [138] Prescriptions as of 07/25/2024 [...] tachycardia syndrome (POTS*05/17/2022 Pre-op examination [Z01.818] 02/06/2024 IMRTA (obstructive sleep apnea) [G47.33] 02/06/2024 BMI 39.0-39.9,adult [Z68.39] 02/06/2024 Attention-deficit hyperactivity disorder, unspe*04/03/2024 Thyroid nodule [E04.1] 07/24/2024 Anxiety and depression [F41.9, F32.A] 07/24/2024 VHD (valvular heart disease) [I38] 07/24/2024 Encounter Status:Closed by KURTIS AGUDELO on 07/24/24 Normal [facility] metabolic 2000 panelOrdered By: Kenya Etienne on 07-24-2024 Albumin [Mass/Vol] 4.3 g/dL 3.9 - 4.9 g/dL [facility] ALP [Catalytic activity/Vol] 95 U/L 34 - 123 U/L [facility] ALT [Catalytic activity/Vol] 15 U/L 7 - 38 U/L [facility] Anion gap [Moles/Vol] 11 mmol/L 8 - 15 mmol/L [facility] AST [Catalytic activity/Vol] 21 U/L 13 - 35 U/L [facility] Bilirubin [Mass/Vol] 0.2 mg/dL 0.2 - 1 .3 mg/dL [facility] Calcium [Mass/Vol] 9.3 mg/dL 8.5 - 10. 2 mg/dL [facility] Chloride [Moles/Vol] 103 mmol/L 98 - 10 7 mmol/L [facility] CO2 [Moles/Vol] 28 mmol/L 22 - 30 mmol/L [facility] Creatinine [Mass/Vol] 0.93 mg/dL 0.58 - 0.96 mg/dL [facility] GFR/1.73 sq M.predicted among non-blacks MDRD (S/P/Bld) [Vol rate/Area] 89 mL/min/{1.73_m2} - PINF [facility] Comment on above: Estimated Glomerular Filtration Rate [...] 100 mg/dL High 74 - 99 mg/dL [facility] Comment on above: The [place] Diab[employer] s Association (ADA) provides guidance for [...] Standards of Medical Care in Diabetes 2016, [place] [employer] Association. Diabetes Care. 2016.39(Suppl 1). Interpretation and review of laboratory results Abnormal [facility] Potassium [Moles/Vol] 3.5 mmol/L Low 3.7 - 5.1 mmol/L [facility] Protein [Mass/Vol] 6.9 g/dL 6.3 - 8.0 g/dL [facility] Sodium [Moles/Vol] 142 mmol/L 136 - 144 mmol/L [facility] Urea nitrogen [Mass/Vol] 8 mg/dL 7 - 21 mg/dL [facility] metabolic 2000 panelon 07-24-2024 Albumin [Mass/Vol] 4.3 g/dL Normal 3.9-4.9 [facility] Comment on above: Order Comment: Speci men Type: BLOOD SPECIMENOrdering Facility: [facility] Address: [address] [place] [address] Performed By: #### 2 4323-8 ####[facility] ERWNCLIA [id number] [place] [address] [place] ALP [Catalytic activity/Vol] 95 U/L Normal 34-123 [facility] Comment on above: Order Comment: Speci men Type: BLOOD SPECIMENOrdering Facility: [facility] Address: [address] [place] [address] Performed By: #### 2 4323-8 ####[facility]CL[facility] [id number] [place] [address] [place] ALT [Catalytic activity/Vol] 15 U/L Normal 7-38 [facility] Comment on above: Order Comment: Speci men Type: BLOOD SPECIMENOrdering Facility: [facility] Address: [address] [place] [address] Performed By: #### 2 4323-8 ####[facility]ITALNCLIA [id number] [place] [address] [place] Anion gap [Moles/Vol] 11 mmol/L Normal 8-15 [facility] Comment on above: Order Comment: Speci men Type: BLOOD SPECIMENOrdering Facility: [facility] Address: [address] [place] [address] Performed By: #### 2 4323-8 ####[facility] ERWNCLIA [id number] [place] [address] [place] AST [Catalytic activity/Vol] 21 U/L Normal 13-35 [facility] Comment on above: Order Comment: Speci men Type: BLOOD SPECIMENOrdering Facility: [facility] Address: [address] [place] [address] Performed By: #### 2 4323-8 ####[facility] DEBBIE MILLTOWNCLIA [id number] [place] [address] [place] Bilirubin [Mass/Vol] 0.2 mg/dL Normal 0.2-1.3 [facility] Comment on above: Order Comment: Speci men Type: BLOOD SPECIMENOrdering Facility: [facility] Address: [address] [place] [address] Performed By: #### 2 4323-8 ####[facility] MILLTOWPREMALIA [id number] [place] [address] [place] Calcium [Mass/Vol] 9.3 mg/dL Normal 8.5-10.2 [facility] Comment on above: Order Comment: Speci men Type: BLOOD SPECIMENOrdering Facility: [facility] Address: [address] [place] [address] Performed By: #### 2 4323-8 ####[facility] MILLRUPAWNCLIA [id number] [place] [address] [place] Chloride [Moles/Vol] 103 mmol/L Normal 98-107 [facility] Comment on above: Order Comment: Speci men Type: BLOOD SPECIMENOrdering Facility: [facility] Address: [address] [place] [address] Performed By: #### 2 4323-8 ####[facility] DEBBIE MILLTOWNCLIA [id number] [place] [address] [place] CO2 [Moles/Vol] 28 mmol/L Normal 22-30 [facility] Comment on above: Order Comment: Speci men Type: BLOOD SPECIMENOrdering Facility: [facility] Address: [address] [place] [address] Performed By: #### 2 4323-8 ####[facility] MILLTOWNCLIA [id number] [place] [address] [place] Creatinine [Mass/Vol] 0.93 mg/dL Normal 0.58-0.96 [facility] Comment on above: Order Comment: Jonnathan jones Type: BLOOD SPECIMENOrdering Facility: [facility] Address: [address] [place] [address] Performed By: #### 2 4323-8 ####[facility] [id number] [place] [address] [place] Creatinine and Glomerular filtration rate.predicted panel (S/P/Bld) 89 mL/min/1.73m??? Normal >=60 [facility] Comment on above: Order Comment: Jonnathan jones Type: BLOOD SPECIMENOrdering Facility: [facility] Address: [address] [place] [address] Result Comment: Mamta mated Glomerular Filtration Rate [...] actual GFR. Performed By: #### 2 4323-8 ####[facility] [id number] [place] [address] [place] Glucose [Mass/Vol] 100 mg/dL High 74-99 [facility] Comment on above: Order Comment: Jonnathan jones Type: BLOOD SPECIMENOrdering Facility: [facility] Address: [address] [place] [address] Result Comment: The [place] Diabetes Association (ADA) provides guidance for cutoff [...] Standards of Medical Care in Diabetes 2016, [place] Diabetes Association. Diabetes Care. 2016.39(Suppl 1). Performed By: #### 2 4323-8 ####[facility]ITALL[facility] [id number] [place] [address] [place] Potassium [Moles/Vol] 3.5 mmol/L Low 3.7-5.1 [facility] Comment on above: Order Comment: Speci men Type: BLOOD SPECIMENOrdering Facility: [facility] Address: [address] [place] [address] Performed By: #### 2 4323-8 ####[facility] [id number] [place] [address] [place] Protein [Mass/Vol] 6.9 g/dL Normal 6.3-8.0 [facility] Comment on above: Order Comment: Speci men Type: BLOOD SPECIMENOrdering Facility: [facility] Address: [address] [place], [place] [address] Performed By: #### 2 4323-8 ####[facility]ALLI [id number] [place] [address] [place] Sodium [Moles/Vol] 142 mmol/L Normal 136-144 [facility] Comment on above: Order Comment: Speci men Type: BLOOD SPECIMENOrdering Facility: [facility] Address: [address] [place] [address] Performed By: #### 2 4323-8 ####[facility] [id number] [place] [address] [place] Urea nitrogen [Mass/Vol] 8 mg/dL Normal 7-21 [facility] Comment on above: Order Comment: Speci men Type: BLOOD SPECIMENOrdering Facility: [facility] Address: [address] [place] [address] Performed By: #### 2 4323-8 ####[facility] DEBBIE [facility] [id number] [place] [id number] [place] HISTORY PHYSICALon HISTORY PHYSICAL HNO ID: [id number] Author: MARGO JOHNSON APRN.CNP Service: ? Author Type: Nurse Practitioner Type: H&P Filed: 07/24/2024 09:48 Note Text: [facility] HISTORY AND PHYSICAL EXAMINATION SERVICE DATE: 07/24/2024 SERVICE TIME: 9:46 AM PRIMARY CARE PHYSICIAN: Karthik Lino MD, MD Assessment Patient has the following medical conditions which may affect nanci-operative course: Postural orthostatic tachycardia syndrome (POTS) Assessment: [...] valve, most recent cardiac records requested from [facility] ANESTHESIA FINDINGS: Intubation History: No history of [...] or younger Non-male patient STOP-Bang Score: 4 [id number] Score: Age: <65 Sex: female CHF history: No Hypertension history: No Stroke/TIA/thromboembolism history: No Vascular disease history: No Diabetes history: No [id number] Score: 1 ARISCAT Score: Age: <=50 Preoperative [...] OPEN (N/A) at the request of Dr. Lauren Guo for consultation. My final recommendation will [...] surgery because of biliary dyskinesia. 07/22/2024, Dr. Lauren Guo HPI: Ace is a 23 year [...] me today at the request of Dr. Karthik Lino MD, MD f (more content not included)... Normal [facility] L2100.0000on 07-24-2024 ACCA 25 units Normal 0-90 [facility] Comment on above: Result Comment: Nega tive: <80 Equivocal: 80-90 Positive: >90 Performed By: #### L 2100.0000, L503.5510 ####[facility] [address] [place], [address] ALCA 29 units Normal 0-60 [facility] Comment on above: Result Comment: Nega tive:<55 Equivocal: 55-60 Positive: >60 Performed By: #### L 2100.0000, L503.5510 ####[facility] [address] [place], [address] AMCA 48 units Normal 0-100 [facility] Comment on above: Result Comment: Nega tive: <90 Equivocal: 90-100 Positive: >100 This test was developed and its performance characteristics determined by [facility]. It has not been cleared or approved by the Food and Drug Administration. The FDA has determined that such clearance or approval is not necessary. Performed By: #### L 2100.0000, L503.5510 ####[facility] [address] [place], [address] Atypical pANCA Negative Normal Negative [facility] Comment on above: Performed By: #### L 2100.0000, L503.5510 ####[facility] [address] [place], [address] COMMENT Comment Normal . [facility] Comment on above: Result Comment: Emerald amandeep is not suggestive of Inflammatory Bowel DiseasePerformed at: [address] [id number] Director: Kiki Tyson MD, Phone: [phone] Performed By: #### L 2100.0000, L503.5510 ####[facility] [address] [place], [place], [id number] Swetha 6 units Normal 0-50 [facility] Comment on above: Result Comment: Nega tive: <45 Equivocal: 45-50 Positive: >50 Performed By: #### L 2100.0000, L503.5510 ####[facility] [address] [place], [address] CNPNon 07-23-2024 [facility] Telephone ([employer]) ACE LEONARDO ([id number]) 2 F Date Time Provider Department 07/23/24 LAUREN GUO GENWithingsS During your visit today, we recorded the [...] like it back by Sunday. RAUL Nation BrittneyHERI 07/24/2024 3:28 PM Signed Call received from Pt - name AND verified. Pt questioning if Dr. Guo had a chance to review her question re: open vs. lap matty that she had called about yesterday. Reassured Pt that it had been forwarded to the surgeon, and we would be in touch with her upon his review and recommendations. She voices understanding. Kurtis Agudelo RN July 24, 2024 3:28 PM Lauren Guo MD 07/25/2024 10:22 AM Signed Her surgery will be done laparoscopically. We will have medications on board to help her with any nausea or vomiting. Allergies As of Date: 07/23/2024 Noted Allergy Reaction CYCLOBENZAPRINE 07/22/2024 2 - Rash Date Reviewed: 07/22/2024 Reviewed by: Vera Nicholson RN - Fully Assessed Reason for Visit: Patient Question [[id number]] Prescriptions as of 07/25/2024 - dicyclomine (BENTYL) [...] >= 40 [E66.01] 02/06/2024 Encounter Status:Closed by KURTIS AGUDELO on 07/24/[address] [facility] Gastric Emptying Studyon Gastric Emptying Study Normal [facility] Myoglobin, Urineon MYOGLOBIN,URINE 2 ng/mL Normal 0-13 [facility] Comment on above: Order Comment: Test( s) 779131-Illxtyzvj, Urinewas developed and its performance characteristicsdetermined by [facility] [employer]. It has not been cleared or approvedby the Food and Drug Administration. Result Comment: Perf ormed at: [facility] [address] [id number] Director: Kiki Tyson MD, Phone: [phone] Performed By: #### L 3600.5000 ####[facility] [address] [place], [place], [address] KARINA Comprehensive Panelon KARINA TABLE Comment Normal . [facility] Comment on above: Result Comment: Auto antibody Disease Association ------- Condition Frequency ---------Antinuclear Antibody, SLE, mixed connectiveDirect (KARINA-D) tissue diseases ---------dsDNA SLE 40 - 60% ---------Chromatin Drug induced SLE 90% SLE 48 - 97% ---------SSA (Ro) SLE 25 - 35% Sjogren's Syndrome 40 - 70% Lupus 100% ---------SSB (La) SLE 10% Sjogren's Syndrome 30% ---------Sm (anti-Donovan) SLE 15 - 30% ---------ASSISTANT TODDLER TEACHER Mixed Connective Tissue Disease 95%(U1 nRNP, SLE 30 - 50%anti-ribonucleoprotein) Polymyositis and/or Dermatomyositis 20% ---------Scl-70 (antiDNA Scleroderma (diffuse) 20 - 35%topoisomerase) Crest 13% ---------Jasmyn-1 Polymyositis and/or Dermatomyositis 20 - 40% ---------Centromere B Scleroderma - Crest variant 80% AMENDED REPORT 07/22/241207 COMMENT previously reported as: Test not performed Performed By: #### L 3300.1200, L501.3620, L501.6710, L3100.5440, L101.9900, L504.2610, L3300.1800, L501.9520, L3300.0100, L3400.0700, L3900.2100 ####[facility] [address] [facility] [place], [place], [id number] ANTI-CENT B AB <0.2 Normal 0.0-0.9 [facility] Comment on above: Result Comment: AMENDED REPORT 07/22/241207 ANTI-CENT B previously reported as: Test not performed Performed By: #### L 3300.1200, L501.3620, L501.6710, L3100.5440, L101.9900, L504.2610, L3300.1800, L501.9520, L3300.0100, L3400.0700, L3900.2100 ####[facility] [address] [facility] [facility] [address] [facility] [place], [place], [id number] ANTI-DNA (DS)AB <1 Normal 0-9 [facility] Comment on above: Result Comment: Nega tive <5 Equivocal 5 - 9 Positive >9 AMENDED REPORT 07/22/241207 dsDNA AB previously reported as: Test not performed Performed By: #### L 3300.1200, L501.3620, L501.6710, L3100.5440, L101.9900, L504.2610, L3300.1800, L501.9520, L3300.0100, L3400.0700, L3900.2100 ####[facility] [address] [facility] [place], [address] ANTI-JASMYN-1 <0.2 Normal 0.0-0.9 [facility] Comment on above: Result Comment: AMENDED REPORT 07/22/241207 ANTI-JASMYN previously reported as: Test not performed Performed By: #### L 3300.1200, L501.3620, L501.6710, L3100.5440, L101.9900, L504.2610, L3300.1800, L501.9520, L3300.0100, L3400.0700, L3900.2100 ####[facility] [address] [facility] [place], [address] ANTI-SS-A < 0.2 Normal 0.0-0.9 [facility] Comment on above: Result Comment: AMENDED REPORT 07/22/241207 Anti-SS-A previously reported as: Test not performed Performed By: #### L 3300.1200, L501.3620, L501.6710, L3100.5440, L101.9900, L504.2610, L3300.1800, L501.9520, L3300.0100, L3400.0700, L3900.2100 ####[facility] [address] [facility] [place], [address] ANTI-SS-B < 0.2 Normal 0.0-0.9 [facility] Comment on above: Result Comment: AMENDED REPORT 07/22/241207 Anti-SS-B previously reported as: Test not performed Performed By: #### L 3300.1200, L501.3620, L501.6710, L3100.5440, L101.9900, L504.2610, L3300.1800, L501.9520, L3300.0100, L3400.0700, L3900.2100 ####[facility] [address] [place], [address] ANTICHROMATIN <0.2 Normal 0.0-0.9 [facility] Comment on above: Result Comment: AMENDED REPORT 07/22/241207 ANTICHROMATIN previously reported as: Test not performed Performed By: #### L 3300.1200, L501.3620, L501.6710, L3100.5440, L101.9900, L504.2610, L3300.1800, L501.9520, L3300.0100, L3400.0700, L3900.2100 ####[facility] [address] [place], [address] ANTISCLERODERM <0.2 Normal 0.0-0.9 [facility] Comment on above: Result Comment: AMENDED REPORT 07/22/241207 ANTISCLER previously reported as: Test not performed Performed By: #### L 3300.1200, L501.3620, L501.6710, L3100.5440, L101.9900, L504.2610, L3300.1800, L501.9520, L3300.0100, L3400.0700, L3900.2100 ####[facility] [address] [place], [place], [id number] ASSISTANT TODDLER TEACHER Ab <0.2 Normal 0.0-0.9 [facility] Comment on above: Result Comment: AMENDED REPORT 07/22/241207 ASSISTANT TODDLER TEACHER Ab previously reported as: Test not performed Performed By: #### L 3300.1200, L501.3620, L501.6710, L3100.5440, L101.9900, L504.2610, L3300.1800, L501.9520, L3300.0100, L3400.0700, L3900.2100 ####[facility] [address] [place], [address] DONOVAN Ab <0.2 Normal 0.0-0.9 [facility] Comment on above: Result Comment: AMENDED REPORT 07/22/24 1208 DONOVAN Ab previously reported as: Test not performed Performed By: #### L 3300.1200, L501.3620, L501.6710, L3100.5440, L101.9900, L504.2610, L3300.1800, L501.9520, L3300.0100, L3400.0700, L3900.2100 ####[facility] [address] [place], [place], [id number] Alpha Antitrypsin Serumon ALPHA1 ANTITRYP 203 mg/dL Abnormal 100-188 [facility] Comment on above: Result Comment: Perf ormed at: [facility] Director: Rodney Jonas PhD, Phone: [phone] Performed By: #### L 3300.1200, L501.3620, L501.6710, L3100.5440, L101.9900, L504.2610, L3300.1800, L501.9520, L3300.0100, L3400.0700, L3900.2100 ####[facility] [address] [place], [place], [id number] CNOVon 07-22-2024 CNOV Office Visit (JULIOCESAR ) ACE LEONARDO ([id number]) 2 F Date Time Provider Department 07/22/24 9:00 AM LAUREN GUO During your visit today, we recorded the following information about you: Temperature Pulse Blood pressure Weight 97.1 degrees 97/minute 118/78 99.2 kg Height 1.575 m Lauren Guo MD 07/22/2024 10:45 AM Signed HISTORY AND PHYSICAL Ace Leonardo 2000 REFERRING PHYSICIAN: Karthik Lino MD, MD CHIEF COMPLAINT: Consult (hernia) [...] me today at the request of Dr. Karthik Lino MD, MD for my opinion and [...] SENSIMIST) 27.5 mcg/actuation nasal spray Use 1 [place] in each nostril two times a day. [...] oropharynx i (more content not included)... Normal [facility] 07-22-2024 CNPN Telephone ([employer]) ACE LEONARDO ([id number]) 2 F Date Time Provider Department 07/22/24 LAUREN GUO GENWithingsS During your visit today, we recorded the following information about you: Montez Mann 07/22/2024 12:29 PM Signed 09-03-2024 lap matty Allergies As of Date: 07/22/2024 Noted Allergy Reaction CYCLOBENZAPRINE 07/22/2024 2 - Rash Date Reviewed: 07/22/2024 Reviewed by: Vera Nicholson, RN - Fully Assessed Prescriptions as of 10/16/2024 [...] >= 40 [E66.813] 02/06/2024 Encounter Status:Closed by MONTEZ MANN on 10/16/24 [facility] Telephone ([employer]) ACE LEONARDO ([id number]) 2 F Date Time Provider Department 07/22/24 LAUREN GUO GENNIVIA During your visit today, we recorded the following information about you: Shefali Richter LPN 07/22/2024 2:31 PM Signed Patient [...] RN - Fully Assessed Reason for Visit: Schedule [...] >= 40 [E66.01] 02/06/2024 Encounter Status:Closed by SHEFALI RICHTER on 07/25/[address] [facility] Basic Metabolic Profile (BMP )on 07-21-2024 BUN Normal 4-19 [facility] Comment on above: Result Comment: Canc elled via OM: Order cancelled - Patient discharged Performed By: #### L 500.2500, L100.0500 ####[facility] [address] [place], [address] BUN/CRE Normal 10-20 [facility] Comment on above: Result Comment: Canc elled via OM: Order cancelled - Patient discharged Performed By: #### L 500.2500, L100.0500 ####[facility] [address] [place], [address] Calcium Normal 7.6-11.0 [facility] Comment on above: Result Comment: Canc elled via OM: Order cancelled - Patient discharged Performed By: #### L 500.2500, L100.0500 ####[facility] [address] [place], [address] CL Normal 98-108 [facility] Comment on above: Result Comment: Canc elled via OM: Order cancelled - Patient discharged Performed By: #### L 500.2500, L100.0500 ####[facility] [address] [place], [address] CO2 Normal 21.0-32.0 [facility] Comment on above: Result Comment: Canc elled via OM: Order cancelled - Patient discharged Performed By: #### L 500.2500, L100.0500 ####[facility] [address] [place], [address] CREAT,SERUM Normal 0.70-1.20 [facility] Comment on above: Result Comment: Canc elled via OM: Order cancelled - Patient discharged Performed By: #### L 500.2500, L100.0500 ####[facility] [address] [place], [address] eGFR Normal >60 [facility] Comment on above: Result Comment: Canc elled via OM: Order cancelled - Patient discharged Performed By: #### L 500.2500, L100.0500 ####[facility] [address] [place], [address] GAP Normal 5-15 [facility] Comment on above: Result Comment: Canc elled via OM: Order cancelled - Patient discharged Performed By: #### L 500.2500, L100.0500 ####[facility] [address] [place], [address] GLU Normal 70-99 [facility] Comment on above: Result Comment: Canc elled via OM: Order cancelled - Patient discharged Performed By: #### L 500.2500, L100.0500 ####[facility] [address] [place], [address] Potassium Normal 3.3-5.1 [facility] Comment on above: Result Comment: Canc elled via OM: Order cancelled - Patient discharged Performed By: #### L 500.2500, L100.0500 ####[facility] [address] [place], [address] Basic Metabolic Profile (BMP) Normal 133-145 [facility] Comment on above: Result Comment: Canc elled via OM: Order cancelled - Patient discharged Performed By: #### L 500.2500, L100.0500 ####[facility] [address] [place], [address] CBC-Complete Blood Cnt No Di ffon 07-21-2024 HCT Normal 37-47 [facility] Comment on above: Result Comment: Canc elled via OM: Order cancelled - Patient discharged Performed By: #### L 500.2500, L100.0500 ####[facility] [address] [place], [address] HGB Normal 12.0-15.0 [facility] Comment on above: Result Comment: Canc elled via OM: Order cancelled - Patient discharged Performed By: #### L 500.2500, L100.0500 ####[facility] [address] [place], [address] MCH Normal 27.0-32.0 [facility] Comment on above: Result Comment: Canc elled via OM: Order cancelled - Patient discharged Performed By: #### L 500.2500, L100.0500 ####[facility] [address] [place], [address] MCHC Normal 32-36 [facility] Comment on above: Result Comment: Canc elled via OM: Order cancelled - Patient discharged Performed By: #### L 500.2500, L100.0500 ####[facility] [address] [place], [address] MCV Normal 81-99 [facility] Comment on above: Result Comment: Canc elled via OM: Order cancelled - Patient discharged Performed By: #### L 500.2500, L100.0500 ####[facility] [address] [place], [address] PLT Normal 150-450 [facility] Comment on above: Result Comment: Canc elled via OM: Order cancelled - Patient discharged Performed By: #### L 500.2500, L100.0500 ####[facility] [address] [place], [address] RBC Normal 4.2-5.4 [facility] Comment on above: Result Comment: Canc elled via OM: Order cancelled - Patient discharged Performed By: #### L 500.2500, L100.0500 ####[facility] [address] [place], [address] RDW CV Normal 11.6-14.6 [facility] Comment on above: Result Comment: Canc elled via OM: Order cancelled - Patient discharged Performed By: #### L 500.2500, L100.0500 ####[facility] [address] [place], [address] RDW SD Normal 35.1-43.9 [facility] Comment on above: Result Comment: Canc elled via OM: Order cancelled - Patient discharged Performed By: #### L 500.2500, L100.0500 ####[facility] [address] [place], [address] WBC Normal 4.4-11.0 [facility] Comment on above: Result Comment: Canc elled via OM: Order cancelled - Patient discharged Performed By: #### L 500.2500, L100.0500 ####[facility] [address] [place], [address] Discharge Instructionon 04-0 Discharge Instruction Normal [facility] L509.6001on 07-20-2024 CORTISOL 36.20 ug/dL High 6.02-18.40 [facility] Comment on above: Order Comment: Must be drawn 30-60 min AFTER cosyntropin admin. Performed By: #### L 509.6001 ####[facility] [address] [place], [address] CORTISOL 7.17 ug/dL Normal 6.02-18.40 [facility] Comment on above: Order Comment: must be performed shortly BEFORE cosyntropin admin Performed By: #### L 509.6001 ####[facility] [address] [place], [address] Ammoniaon 07-19-2024 Ammonia (P) [Moles/Vol] 20.7 umol/L Normal 11-51 [facility] Comment on above: Performed By: #### L 2100.0000, L503.5510 ####[facility] [address] [place], [address] Basic Metabolic Profile (BMP )on 07-19-2024 BUN/CRE 10.6 RATIO Normal 10-20 [facility] Comment on above: Performed By: #### L 100.0100, L500.2500 ####[facility] [address] [place], [address] Calcium [Mass/Vol] 8.7 mg/dL Normal 7.6-11.0 [facility] Comment on above: Performed By: #### L 100.0100, L500.2500 ####[facility] [address] [place], [address] Chloride [Moles/Vol] 105 mmol/L Normal 98-108 [facility] Comment on above: Performed By: #### L 100.0100, L500.2500 ####[facility] [address] [place], [address] CO2 [Moles/Vol] 17.8 mmol/L Low 21.0-32.0 [facility] Comment on above: Performed By: #### L 100.0100, L500.2500 ####[facility] [address] [place], [address] Creatinine [Mass/Vol] 0.69 mg/dL Low 0.70-1.20 [facility] Comment on above: Performed By: #### L 100.0100, L500.2500 ####[facility] [address] [place], [address] ECRCL 138.30 ml/min Normal 50-250 [facility] Comment on above: Performed By: #### L 100.0100, L500.2500 ####[facility] [address] [place], [address] GAP 17 High 5-15 [facility] Comment on above: Performed By: #### L 100.0100, L500.2500 ####[facility] [address] [place], [address] GFR/1.73 sq M.predicted among non-blacks MDRD (S/P/Bld) [Vol rate/Area] 126 mL/min/{1.73_m2} Normal >60 [facility] Comment on above: Result Comment: mL/m in/1.73m2 CKD-EPI Creatinine Equation (2020) Performed By: #### L 100.0100, L500.2500 ####[facility] [address] [place], [address] Glucose [Mass/Vol] 72 mg/dL Normal 70-99 [facility] Comment on above: Performed By: #### L 100.0100, L500.2500 ####[facility] [address] [place], [address] Potassium [Moles/Vol] 3.6 mmol/L Normal 3.3-5.1 [facility] Comment on above: Performed By: #### L 100.0100, L500.2500 ####[facility] [address] [place], [address] Sodium [Moles/Vol] 140 mmol/L Normal 133-145 [facility] Comment on above: Performed By: #### L 100.0100, L500.2500 ####[facility] [address] [place], [address] Urea nitrogen [Mass/Vol] 7 mg/dL Normal 4-19 [facility] Comment on above: Performed By: #### L 100.0100, L500.2500 ####[facility] [address] [place], [address] CBC W/Diff, Automatedon 04-0 -2024 Absolute Lymph 2.14 X10 3/uL Normal 0.83-4.51 [facility] Comment on above: Performed By: #### L 100.0100, L500.2500 ####[facility] [address] [place], [address] Absolute Neut 3.3 X10 3/uL Normal 2.0-7.7 [facility] Comment on above: Performed By: #### L 100.0100, L500.2500 ####[facility] [address] [place], [address] Basophils/100 WBC (Bld) 0.7 % Normal 0-1 [facility] Comment on above: Performed By: #### L 100.0100, L500.2500 ####[facility] [address] [place], [address] Eosinophils/100 WBC (Bld) 1.5 % Normal 0-5 [facility] Comment on above: Performed By: #### L 100.0100, L500.2500 ####[facility] [address] [place], [address] Erythrocyte distribution width (RBC) [Ratio] 14.3 % Normal 11.6-14.6 [facility] Comment on above: Performed By: #### L 100.0100, L500.2500 ####[facility] [address] [place], [address] Hematocrit (Bld) [Volume fraction] 37.3 % Normal 37-47 [facility] Comment on above: Performed By: #### L 100.0100, L500.2500 ####[facility] [address] [place], [address] Hemoglobin (Bld) [Mass/Vol] 12.0 g/dL Normal 12.0-15.0 [facility] Comment on above: Performed By: #### L 100.0100, L500.2500 ####[facility] [address] [place], [address] IG% 0.200 Normal 0.0-0.9 [facility] Comment on above: Result Comment: IG% - Immature Granulocytes (promyelocytes, myelocytes andmetamyelocytes) > 1% indicates that a LEFT SHIFT is Present. Performed By: #### L 100.0100, L500.2500 ####[facility] [address] [place], [address] Lymphocytes/100 WBC (Bld) 35.0 % Normal 19-41 [facility] Comment on above: Performed By: #### L 100.0100, L500.2500 ####[facility] [address] [place], [address] MCH (RBC) [Entitic mass] 27.3 pg Normal 27.0-32.0 [facility] Comment on above: Performed By: #### L 100.0100, L500.2500 ####[facility] [address] [place], [address] MCHC (RBC) [Mass/Vol] 32.2 g/dL Normal 32-36 [facility] Comment on above: Performed By: #### L 100.0100, L500.2500 ####[facility] [address] [place], [address] MCV (RBC) [Entitic vol] 85.0 fL Normal 81-99 [facility] Comment on above: Performed By: #### L 100.0100, L500.2500 ####[facility] [address] [place], [address] Monocytes/100 WBC (Bld) 8.7 % Normal 0-10 [facility] Comment on above: Performed By: #### L 100.0100, L500.2500 ####[facility] [address] [place], [address] Neutrophils/100 WBC (Bld) 53.9 % Normal 47-70 [facility] Comment on above: Performed By: #### L 100.0100, L500.2500 ####[facility] [address] [place], [address] Nucleated RBC (Bld) [#/Vol] 0 10*3/uL Normal 0-5 [facility] Comment on above: Performed By: #### L 100.0100, L500.2500 ####[facility] [address] [place], [address] Platelet mean volume (Bld) [Entitic vol] 11.4 fL Normal 6.2-12.0 [facility] Comment on above: Performed By: #### L 100.0100, L500.2500 ####[facility] [address] [place], [address] Platelets (Bld) [#/Vol] 297 10*3/uL Normal 150-450 [facility] Comment on above: Performed By: #### L 100.0100, L500.2500 ####[facility] [address] [place], [address] RBC (Bld) [#/Vol] 4.39 10*6/uL Normal 4.2-5.4 [facility] Comment on above: Performed By: #### L 100.0100, L500.2500 ####[facility] [address] [place], [address] RDW SD 44.0 fl High 35.1-43.9 [facility] Comment on above: Performed By: #### L 100.0100, L500.2500 ####[facility] [address] [place], [address] WBC (Bld) [#/Vol] 6.1 10*3/uL Normal 4.4-11.0 [facility] Comment on above: Performed By: #### L 100.0100, L500.2500 ####[facility] [address] [place], [address] CPK Total, Creatine Kinaseon 07-19-2024 CPK TOTAL 124 U/L Normal 24-195 [facility] Comment on above: Performed By: #### L 3300.1200, L501.3620, L501.6710, L3100.5440, L101.9900, L504.2610, L3300.1800, L501.9520, L3300.0100, L3400.0700, L3900.2100 ####[facility] [address] [place], [address] CRPon 07-19-2024 C-REACTIVE PROT 24.30 mg/L High 0.0-3.0 [facility] Comment on above: Performed By: #### L 3300.1200, L501.3620, L501.6710, L3100.5440, L101.9900, L504.2610, L3300.1800, L501.9520, L3300.0100, L3400.0700, L3900.2100 ####[facility] [address] [place], [address] Catachol+VMA, 24 HR URon Dopamine, Urine Normal Not Estab. [facility] Comment on above: Result Comment: PEDRO ENT DISCHARGED BEFORE COLLECTED Performed By: #### L 0.0055 ####[facility] [address] [place], [address] Dopamine,U,24HR Normal 65-610 [facility] Comment on above: Result Comment: PEDRO ENT DISCHARGED BEFORE COLLECTED Performed By: #### L 0.0055 ####[facility] [address] [place], [address] Epineph.,U,24HR Normal 0-24 [facility] Comment on above: Result Comment: PEDRO ENT DISCHARGED BEFORE COLLECTED Performed By: #### L 3600.0055 ####[facility] [address] [place], [address] Epinephrine, U Normal Not Estab. [facility] Comment on above: Result Comment: PEDRO ENT DISCHARGED BEFORE COLLECTED Performed By: #### L 0.0055 ####[facility] [address] [place], [address] Norepin.,U,24HR Normal 0-140 [facility] Comment on above: Result Comment: PEDRO ENT DISCHARGED BEFORE COLLECTED Performed By: #### L 3600.0055 ####[facility] [address], [address] Norepinephrin,U Normal Not Estab. [facility] Comment on above: Result Comment: PEDRO ENT DISCHARGED BEFORE COLLECTED Performed By: #### L 3600.0055 ####[facility] [address], [address] VMA, Urine Normal Not Estab. [facility] Comment on above: Result Comment: PEDRO ENT DISCHARGED BEFORE COLLECTED Performed By: #### L 3600.0055 ####[facility] [address] [place], [address] VMA, Urine,24HR Normal 1.8-6.7 [facility] Comment on above: Result Comment: PEDRO ENT DISCHARGED BEFORE COLLECTED Performed By: #### L 3600.0055 ####[facility] [address] [place], [address] Erythrocyte Sed Rateon 07-19 SED RATE 6 mm/hr Normal 0-30 [facility] Comment on above: Performed By: #### L 3300.1200, L501.3620, L501.6710, L3100.5440, L101.9900, L504.2610, L3300.1800, L501.9520, L3300.0100, L3400.0700, L3900.2100 ####[facility] [address] [place], [address] LDHon 07-19-2024 LDH 168 U/L Normal 84-246 [facility] Comment on above: Order Comment: 1 Result Comment: Hemo lysis present, Results??could be affected.?? Performed By: #### L 3300.1200, L501.3620, L501.6710, L3100.5440, L101.9900, L504.2610, L3300.1800, L501.9520, L3300.0100, L3400.0700, L3900.2100 ####[facility] [address] [place], [address] MR/CON.PCM.GIon 07-19-2024 MR/CON.PCM.GI Normal [facility] Thyroid Stim Hormone (TSH)on 07-19-2024 TSH 4.000 uIU/mL Normal 0.300-4.200 [facility] Comment on above: Performed By: #### L 3300.1200, L501.3620, L501.6710, L3100.5440, L101.9900, L504.2610, L3300.1800, L501.9520, L3300.0100, L3400.0700, L3900.2100 ####[facility] [address] [place], [address] CBC W/Diff, Automatedon 04 Absolute Lymph 1.94 X10 3/uL Normal 0.83-4.51 [facility] Comment on above: Performed By: #### L 100.0100, L500.4050, L501.2450 ####[facility] [address] [place], [address] Absolute Neut 5.4 X10 3/uL Normal 2.0-7.7 [facility] Comment on above: Performed By: #### L 100.0100, L500.4050, L501.2450 ####[facility] [address] [place], [address] Basophils/100 WBC (Bld) 0.6 % Normal 0-1 [facility] Comment on above: Performed By: #### L 100.0100, L500.4050, L501.2450 ####[facility] [address] [place], [address] Eosinophils/100 WBC (Bld) 0.6 % Normal 0-5 [facility] Comment on above: Performed By: #### L 100.0100, L500.4050, L501.2450 ####[facility] [address] [place], [address] Erythrocyte distribution width (RBC) [Ratio] 14.5 % Normal 11.6-14.6 [facility] Comment on above: Performed By: #### L 100.0100, L500.4050, L501.2450 ####[facility] [address] [place], [address] Hematocrit (Bld) [Volume fraction] 44.4 % Normal 37-47 [facility] Comment on above: Performed By: #### L 100.0100, L500.4050, L501.2450 ####[facility] [address] [place], [address] Hemoglobin (Bld) [Mass/Vol] 14.2 g/dL Normal 12.0-15.0 [facility] Comment on above: Performed By: #### L 100.0100, L500.4050, L501.2450 ####[facility] [address] [place], [address] IG% 0.400 Normal 0.0-0.9 [facility] Comment on above: Result Comment: IG% - Immature Granulocytes (promyelocytes, myelocytes andmetamyelocytes) > 1% indicates that a LEFT SHIFT is Present. Performed By: #### L 100.0100, L500.4050, L501.2450 ####[facility] [address] [place], [address] Lymphocytes/100 WBC (Bld) 23.8 % Normal 19-41 [facility] Comment on above: Performed By: #### L 100.0100, L500.4050, L501.2450 ####[facility] [address] [place], [address] MCH (RBC) [Entitic mass] 26.9 pg Low 27.0-32.0 [facility] Comment on above: Performed By: #### L 100.0100, L500.4050, L501.2450 ####[facility] [address] [place], [address] MCHC (RBC) [Mass/Vol] 32.0 g/dL Normal 32-36 [facility] Comment on above: Performed By: #### L 100.0100, L500.4050, L501.2450 ####[facility] [address] [place], [address] MCV (RBC) [Entitic vol] 84.1 fL Normal 81-99 [facility] Comment on above: Performed By: #### L 100.0100, L500.4050, L501.2450 ####[facility] [address] [place], [address] Monocytes/100 WBC (Bld) 8.7 % Normal 0-10 [facility] Comment on above: Performed By: #### L 100.0100, L500.4050, L501.2450 ####[facility] [address] [place], [address] Neutrophils/100 WBC (Bld) 65.9 % Normal 47-70 [facility] Comment on above: Performed By: #### L 100.0100, L500.4050, L501.2450 ####[facility] [address] [place], [address] Nucleated RBC (Bld) [#/Vol] 0 10*3/uL Normal 0-5 [facility] Comment on above: Performed By: #### L 100.0100, L500.4050, L501.2450 ####[facility] [address] [place], [address] Platelet mean volume (Bld) [Entitic vol] 10.9 fL Normal 6.2-12.0 [facility] Comment on above: Performed By: #### L 100.0100, L500.4050, L501.2450 ####[facility] [address] [place], [address] Platelets (Bld) [#/Vol] 405 10*3/uL Normal 150-450 [facility] Comment on above: Performed By: #### L 100.0100, L500.4050, L501.2450 ####[facility] [address] [place], [address] RBC (Bld) [#/Vol] 5.28 10*6/uL Normal 4.2-5.4 [facility] Comment on above: Performed By: #### L 100.0100, L500.4050, L501.2450 ####[facility] [address] [place], [address] RDW SD 44.0 fl High 35.1-43.9 [facility] Comment on above: Performed By: #### L 100.0100, L500.4050, L501.2450 ####[facility] [address] [place], [address] WBC (Bld) [#/Vol] 8.2 10*3/uL Normal 4.4-11.0 [facility] Comment on above: Performed By: #### L 100.0100, L500.4050, L501.2450 ####[facility] [address] [place], [address] Diann 07-18-2024 FORTUNATO Telephone ([employer]) ACE LEONARDO ([id number]) 2 F Date Time Provider Department 07/18/24 LAUREN GUO During your visit today, we recorded the following information about you: Kelechi Neil LPN 07/18/2024 9:58 AM Signed Called [facility] and spoke with Nurse Arlene, to request office notes indicating patient with hernia. Per Arlene they have office visit notes that are not completed but what she is seeing nothing indicative of hernia. Arlene, nurse, states she will contact provider at [...] Visit: Appointment [186] Request Outside Medical Records [[id number]] Prescriptions as of 07/28/2024 - dicyclomine (BENTYL) [...] >= 40 [E66.01] 02/06/2024 Encounter Status:Closed by KELECHI NEIL on 07/28/24 Normal [facility] Metabolic Prof ilon 07-18-2024 Albumin [Mass/Vol] 4.9 g/dL Normal 3.5-5.0 [facility] Comment on above: Performed By: #### L 100.0100, L500.4050, L501.2450 ####[facility] [address] [place], [address] Albumin/Globulin [Mass ratio] 1.4 {ratio} Normal 0.9-2.4 [facility] Comment on above: Performed By: #### L 100.0100, L500.4050, L501.2450 ####[facility] [address] [place], [address] ALK PHOS 95 U/L Normal 35-104 [facility] Comment on above: Performed By: #### L 100.0100, L500.4050, L501.2450 ####[facility] [address] [place], [address] ALT [Catalytic activity/Vol] 20 U/L Normal <=34 [facility] Comment on above: Performed By: #### L 100.0100, L500.4050, L501.2450 ####[facility] [address] [place], [address] AST [Catalytic activity/Vol] 23 U/L Normal <=31 [facility] Comment on above: Performed By: #### L 100.0100, L500.4050, L501.2450 ####[facility] [address] [place], [address] Bilirubin [Mass/Vol] 0.39 mg/dL Normal 0.00-1.30 [facility] Comment on above: Performed By: #### L 100.0100, L500.4050, L501.2450 ####[facility] [address] [place], [address] BUN/CRE 15.0 RATIO Normal 10-20 [facility] Comment on above: Performed By: #### L 100.0100, L500.4050, L501.2450 ####[facility] [address] [place], [address] Calcium [Mass/Vol] 10.0 mg/dL Normal 7.6-11.0 [facility] Comment on above: Performed By: #### L 100.0100, L500.4050, L501.2450 ####[facility] [address] [place], [address] Chloride [Moles/Vol] 102 mmol/L Normal 98-108 [facility] Comment on above: Performed By: #### L 100.0100, L500.4050, L501.2450 ####[facility] [address] [place], [address] CO2 [Moles/Vol] 18.8 mmol/L Low 21.0-32.0 [facility] Comment on above: Performed By: #### L 100.0100, L500.4050, L501.2450 ####[facility] [address] [place], [address] Creatinine [Mass/Vol] 0.81 mg/dL Normal 0.70-1.20 [facility] Comment on above: Performed By: #### L 100.0100, L500.4050, L501.2450 ####[facility] [address] [place], [address] ECRCL 118.29 ml/min Normal 50-250 [facility] Comment on above: Performed By: #### L 100.0100, L500.4050, L501.2450 ####[facility] [address] [place], [address] GAP 22 High 5-15 [facility] Comment on above: Performed By: #### L 100.0100, L500.4050, L501.2450 ####[facility] [address] [place], [address] GFR/1.73 sq M.predicted among non-blacks MDRD (S/P/Bld) [Vol rate/Area] 106 mL/min/{1.73_m2} Normal >60 [facility] Comment on above: Result Comment: mL/m in/1.73m2 CKD-EPI Creatinine Equation (2020) Performed By: #### L 100.0100, L500.4050, L501.2450 ####[facility] [address] [place], [address] Globulin (S) [Mass/Vol] 3.6 g/dL Normal 2.2-4.2 [facility] Comment on above: Performed By: #### L 100.0100, L500.4050, L501.2450 ####[facility] [address] [place], [address] Glucose [Mass/Vol] 87 mg/dL Normal 70-99 [facility] Comment on above: Performed By: #### L 100.0100, L500.4050, L501.2450 ####[facility] [address] [place], [address] Potassium [Moles/Vol] 3.9 mmol/L Normal 3.3-5.1 [facility] Comment on above: Performed By: #### L 100.0100, L500.4050, L501.2450 ####[facility] [address] [place], [address] Sodium [Moles/Vol] 143 mmol/L Normal 133-145 [facility] Comment on above: Performed By: #### L 100.0100, L500.4050, L501.2450 ####[facility] [address] [place], [address] T PROT 8.5 g/dL High 5.9-8.4 [facility] Comment on above: Performed By: #### L 100.0100, L500.4050, L501.2450 ####[facility] [address] [place], [address] Urea nitrogen [Mass/Vol] 12 mg/dL Normal 4-19 [facility] Comment on above: Performed By: #### L 100.0100, L500.4050, L501.2450 ####[facility] [address] [place], [address] Emergency Department Summary on 07-18-2024 Emergency Department Summary Normal [facility] H AND P Exam - Hospitaliston 07-18-2024 H&P Exam - Hospitalist Normal [facility] Hepatobilliary Img w/Pharm I nton 07-18-2024 Hepatobilliary Img w/Pharm Int Normal [facility] Lipaseon 07-18-2024 Lipase [Catalytic activity/Vol] 29 U/L Normal 13-75 [facility] Comment on above: Result Comment: Scarlett gonzalez note:LIPASE revised reference range effective 22.New Lipase methodology. Expected to produce lower valuesthan the previous assay method.NEW Reference Range: 13 - 75 U/L Performed By: #### L 100.0100, L500.4050, L501.2450 ####[facility] [address] [place], [address] MRCP Abdomen without Contras ton 07-18-2024 MRCP Abdomen without Contrast Normal [facility] ,Serum,hCG Quali.on 07-18-2024 HCG, SERUM QUAL Negative Normal [facility] Comment on above: Performed By: #### L 700.6800 ####[facility] [address] [place] [address] Urine Drug Screen (VISTA)on 07-18-2024 AMPHETAMINES Negative Normal <1000 ng/mL [facility] Comment on above: Performed By: #### L 505.5000 ####[facility] [address] [place] [address] BARBITIURATES Negative Normal < 200 ng/mL [facility] Comment on above: Performed By: #### L 505.5000 ####[facility] [address] [place], [address] BENZODIAZIPINE Negative Normal < 200 ng/mL [facility] Comment on above: Performed By: #### L 505.5000 ####[facility] [address] [place], [phone] BUP Ur Drug Scr Negative Normal < 200 ng/mL [facility] Comment on above: Performed By: #### L 505.5000 ####[facility] [address] [place] [address] COCAINE Negative Normal < 300 ng/mL [facility] Comment on above: Performed By: #### L 505.5000 ####[facility] [address] [place] [id number] Fentanyl Negative Normal [facility] Comment on above: Performed By: #### L 505.5000 ####[facility] [address] [place], [address] METHADONE Negative Normal < 300 ng/mL [facility] Comment on above: Performed By: #### L 505.5000 ####[facility] [address] [place], [address] OPIATES Negative Normal < 300 ng/mL [facility] Comment on above: Performed By: #### L 505.5000 ####[facility] [address] [place], [address] OXYCODONE Negative Normal < 100 ng/mL [facility] Comment on above: Performed By: #### L 505.5000 ####[facility] [address] [place], [address] PCP Negative Normal < 25 ng/mL [facility] Comment on above: Performed By: #### L 505.5000 ####[facility] [address] [place], [address] THC Negative Normal < 50 ng/mL [facility] Comment on above: Performed By: #### L 505.5000 ####[facility] [address] [place], [address] Basic Metabolic Profile (BMP )on 07-12-2024 BUN/CRE 9.1 RATIO Low 10-20 [facility] Comment on above: Performed By: #### L 100.0100, L500.2500, L500.3400, L501.2450 ####[facility] [address] [place], [address] Calcium [Mass/Vol] 9.8 mg/dL Normal 7.6-11.0 [facility] Comment on above: Performed By: #### L 100.0100, L500.2500, L500.3400, L501.2450 ####[facility] [address] [place], [address] Chloride [Moles/Vol] 101 mmol/L Normal 98-108 [facility] Comment on above: Performed By: #### L 100.0100, L500.2500, L500.3400, L501.2450 ####[facility] [address] [place], [address] CO2 [Moles/Vol] 18.5 mmol/L Low 21.0-32.0 [facility] Comment on above: Performed By: #### L 100.0100, L500.2500, L500.3400, L501.2450 ####[facility] [address] [place], [address] Creatinine [Mass/Vol] 0.80 mg/dL Normal 0.70-1.20 [facility] Comment on above: Performed By: #### L 100.0100, L500.2500, L500.3400, L501.2450 ####[facility] [address] [place], [address] ECRCL 120.27 ml/min Normal 50-250 [facility] Comment on above: Performed By: #### L 100.0100, L500.2500, L500.3400, L501.2450 ####[facility] [address] [place], [address] GAP 19 High 5-15 [facility] Comment on above: Performed By: #### L 100.0100, L500.2500, L500.3400, L501.2450 ####[facility] [address] [place], [address] GFR/1.73 sq M.predicted among non-blacks MDRD (S/P/Bld) [Vol rate/Area] 107 mL/min/{1.73_m2} Normal >60 [facility] Comment on above: Result Comment: mL/m in/1.73m2 CKD-EPI Creatinine Equation (2020) Performed By: #### L 100.0100, L500.2500, L500.3400, L501.2450 ####[facility] [address] [place], [address] Glucose [Mass/Vol] 83 mg/dL Normal 70-99 [facility] Comment on above: Performed By: #### L 100.0100, L500.2500, L500.3400, L501.2450 ####[facility] [address] [place], [address] Potassium [Moles/Vol] 3.6 mmol/L Normal 3.3-5.1 [facility] Comment on above: Performed By: #### L 100.0100, L500.2500, L500.3400, L501.2450 ####[facility] [address] [place], [address] Sodium [Moles/Vol] 139 mmol/L Normal 133-145 [facility] Comment on above: Performed By: #### L 100.0100, L500.2500, L500.3400, L501.2450 ####[facility] [address] [place], [address] Urea nitrogen [Mass/Vol] 7 mg/dL Normal 4-19 [facility] Comment on above: Performed By: #### L 100.0100, L500.2500, L500.3400, L501.2450 ####[facility] [address] [place], [address] CBC W/Diff, Automatedon 03-2 Absolute Lymph 1.59 X10 3/uL Normal 0.83-4.51 [facility] Comment on above: Performed By: #### L 100.0100, L500.2500, L500.3400, L501.2450 ####[facility] [address] [place], [address] Absolute Neut 6.1 X10 3/uL Normal 2.0-7.7 [facility] Comment on above: Performed By: #### L 100.0100, L500.2500, L500.3400, L501.2450 ####[facility] [address] [place], [address] Basophils/100 WBC (Bld) 0.6 % Normal 0-1 [facility] Comment on above: Performed By: #### L 100.0100, L500.2500, L500.3400, L501.2450 ####[facility] [address] [place], [address] Eosinophils/100 WBC (Bld) 0.2 % Normal 0-5 [facility] Comment on above: Performed By: #### L 100.0100, L500.2500, L500.3400, L501.2450 ####[facility] [address] [place], [address] Erythrocyte distribution width (RBC) [Ratio] 14.1 % Normal 11.6-14.6 [facility] Comment on above: Performed By: #### L 100.0100, L500.2500, L500.3400, L501.2450 ####[facility] [address] [place], [address] Hematocrit (Bld) [Volume fraction] 40.7 % Normal 37-47 [facility] Comment on above: Performed By: #### L 100.0100, L500.2500, L500.3400, L501.2450 ####[facility] [address] [place], [address] Hemoglobin (Bld) [Mass/Vol] 13.5 g/dL Normal 12.0-15.0 [facility] Comment on above: Performed By: #### L 100.0100, L500.2500, L500.3400, L501.2450 ####[facility] [address] [place], [address] IG% 0.200 Normal 0.0-0.9 [facility] Comment on above: Result Comment: IG% - Immature Granulocytes (promyelocytes, myelocytes andmetamyelocytes) > 1% indicates that a LEFT SHIFT is Present. Performed By: #### L 100.0100, L500.2500, L500.3400, L501.2450 ####[facility] [address] [place], [address] Lymphocytes/100 WBC (Bld) 18.9 % Low 19-41 [facility] Comment on above: Performed By: #### L 100.0100, L500.2500, L500.3400, L501.2450 ####[facility] [address] [place], [address] MCH (RBC) [Entitic mass] 27.4 pg Normal 27.0-32.0 [facility] Comment on above: Performed By: #### L 100.0100, L500.2500, L500.3400, L501.2450 ####[facility] [address] [place], [address] MCHC (RBC) [Mass/Vol] 33.2 g/dL Normal 32-36 [facility] Comment on above: Performed By: #### L 100.0100, L500.2500, L500.3400, L501.2450 ####[facility] [address] [place], [address] MCV (RBC) [Entitic vol] 82.6 fL Normal 81-99 [facility] Comment on above: Performed By: #### L 100.0100, L500.2500, L500.3400, L501.2450 ####[facility] [address] [place], [address] Monocytes/100 WBC (Bld) 8.0 % Normal 0-10 [facility] Comment on above: Performed By: #### L 100.0100, L500.2500, L500.3400, L501.2450 ####[facility] [address] [place], [address] Neutrophils/100 WBC (Bld) 72.1 % High 47-70 [facility] Comment on above: Performed By: #### L 100.0100, L500.2500, L500.3400, L501.2450 ####[facility] [address] [place], [address] Nucleated RBC (Bld) [#/Vol] 0 10*3/uL Normal 0-5 [facility] Comment on above: Performed By: #### L 100.0100, L500.2500, L500.3400, L501.2450 ####[facility] [address] [place], [address] Platelet mean volume (Bld) [Entitic vol] 10.9 fL Normal 6.2-12.0 [facility] Comment on above: Performed By: #### L 100.0100, L500.2500, L500.3400, L501.2450 ####[facility] [address] [place], [address] Platelets (Bld) [#/Vol] 398 10*3/uL Normal 150-450 [facility] Comment on above: Performed By: #### L 100.0100, L500.2500, L500.3400, L501.2450 ####[facility] [address] [place], [address] RBC (Bld) [#/Vol] 4.93 10*6/uL Normal 4.2-5.4 [facility] Comment on above: Performed By: #### L 100.0100, L500.2500, L500.3400, L501.2450 ####[facility] [address] [place], [address] RDW SD 42.1 fl Normal 35.1-43.9 [facility] Comment on above: Performed By: #### L 100.0100, L500.2500, L500.3400, L501.2450 ####[facility] [address] [place], [address] WBC (Bld) [#/Vol] 8.4 10*3/uL Normal 4.4-11.0 [facility] Comment on above: Performed By: #### L 100.0100, L500.2500, L500.3400, L501.2450 ####[facility] [address] [place], [address] Emergency Department Summary on 07-12-2024 Emergency Department Summary Normal [facility] Lipaseon 07-12-2024 Lipase [Catalytic activity/Vol] 16 U/L Normal 13-75 [facility] Comment on above: Result Comment: Scarlett gonzalez note:LIPASE revised reference range effective 22.New Lipase methodology. Expected to produce lower valuesthan the previous assay method.NEW Reference Range: 13 - 75 U/L Performed By: #### L 100.0100, L500.2500, L500.3400, L501.2450 ####[facility] [address] [place], [address] Liver Profileon 07-12-2024 Albumin [Mass/Vol] 4.9 g/dL Normal 3.5-5.0 [facility] Comment on above: Performed By: #### L 100.0100, L500.2500, L500.3400, L501.2450 ####[facility] [address] [place], [address] ALK PHOS 98 U/L Normal 35-104 [facility] Comment on above: Performed By: #### L 100.0100, L500.2500, L500.3400, L501.2450 ####[facility] [address] [place], [address] ALT [Catalytic activity/Vol] 37 U/L High <=34 [facility] Comment on above: Performed By: #### L 100.0100, L500.2500, L500.3400, L501.2450 ####[facility] [address] [place], [address] AST [Catalytic activity/Vol] 35 U/L High <=31 [facility] Comment on above: Performed By: #### L 100.0100, L500.2500, L500.3400, L501.2450 ####[facility] [address] [place], [address] Bilirubin [Mass/Vol] 0.43 mg/dL Normal 0.00-1.30 [facility] Comment on above: Performed By: #### L 100.0100, L500.2500, L500.3400, L501.2450 ####[facility] [address] [place], [address] Bilirubin.direct [Mass/Vol] 0.24 mg/dL Normal 0.00-0.30 [facility] Comment on above: Performed By: #### L 100.0100, L500.2500, L500.3400, L501.2450 ####[facility] [address] [place], [address] Globulin (S) [Mass/Vol] 3.6 g/dL Normal 2.2-4.2 [facility] Comment on above: Performed By: #### L 100.0100, L500.2500, L500.3400, L501.2450 ####[facility] [address] [place], [address] T PROT 8.5 g/dL High 5.9-8.4 [facility] Comment on above: Performed By: #### L 100.0100, L500.2500, L500.3400, L501.2450 ####[facility] [address] [place], [address] ,Serum,hCG Quali.on 07-12-2024 HCG, SERUM QUAL Negative Normal [facility] Comment on above: Performed By: #### L 700.6800 ####[facility] [address] [place], [address] Urinalysis, Completeon 07-12 EPI,SQUAMOUS 0-5 SEEN Normal 5-10 [facility] Comment on above: Order Comment: CRITI NIKHIL VALUE CALLED TO 07/12/24 Bryan Diaz.RESULTS READ BACK BY SAME.CLEAN CATCH Performed By: #### L 400.0001 ####[facility] [address] [place], [address] RBC 0 SEEN Normal 0-5 [facility] Comment on above: Order Comment: CRITI NIKHIL VALUE CALLED TO 07/12/24 Bryan Diaz.RESULTS READ BACK BY SAME.CLEAN CATCH Performed By: #### L 400.0001 ####[facility] [address] [place], [address] BACTERIA 0 SEEN Normal None Seen [facility] Comment on above: Order Comment: CRITI NIKHIL VALUE CALLED TO 07/12/24 Bryan Diaz.RESULTS READ BACK BY SAME.CLEAN CATCH Performed By: #### L 400.0001 ####[facility] [address] [place], [address] Mucus Ql (Urine sed) 0 SEEN Normal [facility] Comment on above: Order Comment: CRITI NIKHIL VALUE CALLED TO 07/12/24 Bryan Diaz.RESULTS READ BACK BY SAME.CLEAN CATCH Performed By: #### L 400.0001 ####[facility] [address] [place], [address] WBC 0 SEEN Normal 0-5 [facility] Comment on above: Order Comment: CRITI NIKHIL VALUE CALLED TO 07/12/24 1522 Nolvia Diaz.RESULTS READ BACK BY SAME.CLEAN CATCH Performed By: #### L 400.0001 ####[facility] [address] [place], [address] Gastroenterology Visit Repor ton 07-03-2024 Gastroenterology Visit Report Normal [facility] Thyroid Stim Hormone (TSH)on 07-02-2024 TSH 3.120 uIU/mL Normal 0.300-4.200 [facility] Comment on above: Order Comment: Order Date: 06/18/24Order Info: 3016-3 - TSH Performed By: #### L 501.9520 ####[facility] [address] [place], [address] Abdomen/Pelvis W IV Cont ONL Yon 06-30-2024 Abdomen/Pelvis W IV Cont ONLY Normal [facility] Basic Metabolic Profile (BMP )on 06-30-2024 BUN/CRE 9.4 RATIO Low 10-20 [facility] Comment on above: Performed By: #### L 501.2450, L500.2500, L500.3400, L100.0100 ####[facility] [address] [place], [address] Calcium [Mass/Vol] 9.5 mg/dL Normal 7.6-11.0 [facility] Comment on above: Performed By: #### L 501.2450, L500.2500, L500.3400, L100.0100 ####[facility] [address] [place], [address] Chloride [Moles/Vol] 102 mmol/L Normal 98-108 [facility] Comment on above: Performed By: #### L 501.2450, L500.2500, L500.3400, L100.0100 ####[facility] [address] [place], [address] CO2 [Moles/Vol] 21.9 mmol/L Normal 21.0-32.0 [facility] Comment on above: Performed By: #### L 501.2450, L500.2500, L500.3400, L100.0100 ####[facility] [address] [place], [address] Creatinine [Mass/Vol] 0.76 mg/dL Normal 0.70-1.20 [facility] Comment on above: Performed By: #### L 501.2450, L500.2500, L500.3400, L100.0100 ####[facility] [address] [place], [address] ECRCL 129.52 ml/min Normal 50-250 [facility] Comment on above: Performed By: #### L 501.2450, L500.2500, L500.3400, L100.0100 ####[facility] [address] [place], [address] GAP 14 Normal 5-15 [facility] Comment on above: Performed By: #### L 501.2450, L500.2500, L500.3400, L100.0100 ####[facility] [address] [place], [address] GFR/1.73 sq M.predicted among non-blacks MDRD (S/P/Bld) [Vol rate/Area] 114 mL/min/{1.73_m2} Normal >60 [facility] Comment on above: Result Comment: mL/m in/1.73m2 CKD-EPI Creatinine Equation (2020) Performed By: #### L 501.2450, L500.2500, L500.3400, L100.0100 ####[facility] [address] [place], [address] Glucose [Mass/Vol] 89 mg/dL Normal 70-99 [facility] Comment on above: Performed By: #### L 501.2450, L500.2500, L500.3400, L100.0100 ####[facility] [address] [place], [address] Potassium [Moles/Vol] 4.6 mmol/L Normal 3.3-5.1 [facility] Comment on above: Result Comment: Hemo lysis present, Results??could be affected.?? Performed By: #### L 501.2450, L500.2500, L500.3400, L100.0100 ####[facility] [address] [place], [address] Sodium [Moles/Vol] 138 mmol/L Normal 133-145 [facility] Comment on above: Performed By: #### L 501.2450, L500.2500, L500.3400, L100.0100 ####[facility] [address] [place], [address] Urea nitrogen [Mass/Vol] 7 mg/dL Normal 4-19 [facility] Comment on above: Performed By: #### L 501.2450, L500.2500, L500.3400, L100.0100 ####[facility] [address] [place], [address] CBC W/Diff, Automatedon 03- Absolute Lymph 1.55 X10 3/uL Normal 0.83-4.51 [facility] Comment on above: Performed By: #### L 501.2450, L500.2500, L500.3400, L100.0100 ####[facility] [address] [place], [address] Absolute Neut 4.2 X10 3/uL Normal 2.0-7.7 [facility] Comment on above: Performed By: #### L 501.2450, L500.2500, L500.3400, L100.0100 ####[facility] [address] [place], [address] Basophils/100 WBC (Bld) 0.7 % Normal 0-1 [facility] Comment on above: Performed By: #### L 501.2450, L500.2500, L500.3400, L100.0100 ####[facility] [address] [place], [address] Eosinophils/100 WBC (Bld) 0.5 % Normal 0-5 [facility] Comment on above: Performed By: #### L 501.2450, L500.2500, L500.3400, L100.0100 ####[facility] [address] [place], [address] Erythrocyte distribution width (RBC) [Ratio] 13.5 % Normal 11.6-14.6 [facility] Comment on above: Performed By: #### L 501.2450, L500.2500, L500.3400, L100.0100 ####[facility] [address] [place], [address] Hematocrit (Bld) [Volume fraction] 41.0 % Normal 37-47 [facility] Comment on above: Performed By: #### L 501.2450, L500.2500, L500.3400, L100.0100 ####[facility] [address] [place], [address] Hemoglobin (Bld) [Mass/Vol] 13.3 g/dL Normal 12.0-15.0 [facility] Comment on above: Performed By: #### L 501.2450, L500.2500, L500.3400, L100.0100 ####[facility] [address] [place], [address] IG% 0.200 Normal 0.0-0.9 [facility] Comment on above: Result Comment: IG% - Immature Granulocytes (promyelocytes, myelocytes andmetamyelocytes) > 1% indicates that a LEFT SHIFT is Present. Performed By: #### L 501.2450, L500.2500, L500.3400, L100.0100 ####[facility] [address] [place], [address] Lymphocytes/100 WBC (Bld) 25.2 % Normal 19-41 [facility] Comment on above: Performed By: #### L 501.2450, L500.2500, L500.3400, L100.0100 ####[facility] [address] [place], [address] MCH (RBC) [Entitic mass] 27.1 pg Normal 27.0-32.0 [facility] Comment on above: Performed By: #### L 501.2450, L500.2500, L500.3400, L100.0100 ####[facility] [address] [place], [address] MCHC (RBC) [Mass/Vol] 32.4 g/dL Normal 32-36 [facility] Comment on above: Performed By: #### L 501.2450, L500.2500, L500.3400, L100.0100 ####[facility] [address] [place], [address] MCV (RBC) [Entitic vol] 83.5 fL Normal 81-99 [facility] Comment on above: Performed By: #### L 501.2450, L500.2500, L500.3400, L100.0100 ####[facility] [address] [place], [address] Monocytes/100 WBC (Bld) 5.9 % Normal 0-10 [facility] Comment on above: Performed By: #### L 501.2450, L500.2500, L500.3400, L100.0100 ####[facility] [address] [place], [address] Neutrophils/100 WBC (Bld) 67.5 % Normal 47-70 [facility] Comment on above: Performed By: #### L 501.2450, L500.2500, L500.3400, L100.0100 ####[facility] [address] [place], [address] Nucleated RBC (Bld) [#/Vol] 0 10*3/uL Normal 0-5 [facility] Comment on above: Performed By: #### L 501.2450, L500.2500, L500.3400, L100.0100 ####[facility] [address] [place], [address] Platelet mean volume (Bld) [Entitic vol] 10.1 fL Normal 6.2-12.0 [facility] Comment on above: Performed By: #### L 501.2450, L500.2500, L500.3400, L100.0100 ####[facility] [address] [place], [address] Platelets (Bld) [#/Vol] 316 10*3/uL Normal 150-450 [facility] Comment on above: Performed By: #### L 501.2450, L500.2500, L500.3400, L100.0100 ####[facility] [address] [place], [address] RBC (Bld) [#/Vol] 4.91 10*6/uL Normal 4.2-5.4 [facility] Comment on above: Performed By: #### L 501.2450, L500.2500, L500.3400, L100.0100 ####[facility] [address] [place], [address] RDW SD 40.9 fl Normal 35.1-43.9 [facility] Comment on above: Performed By: #### L 501.2450, L500.2500, L500.3400, L100.0100 ####[facility] [address] [place], [address] WBC (Bld) [#/Vol] 6.2 10*3/uL Normal 4.4-11.0 [facility] Comment on above: Performed By: #### L 501.2450, L500.2500, L500.3400, L100.0100 ####[facility] [address] [place], [address] Consultation - Surgicalon Consultation - Surgical Normal [facility] Emergency Department Summary on 06-30-2024 Emergency Department Summary Normal [facility] Gallbladderon 06-30-2024 Gallbladder Normal [facility] Lipaseon 06-30-2024 Lipase [Catalytic activity/Vol] 14 U/L Normal 13-75 [facility] Comment on above: Result Comment: Scarlett gonzalez note:LIPASE revised reference range effective 22.New Lipase methodology. Expected to produce lower valuesthan the previous assay method.NEW Reference Range: 13 - 75 U/L Performed By: #### L 501.2450, L500.2500, L500.3400, L100.0100 ####[facility] [address] [place], [address] Liver Profileon 06-30-2024 Albumin [Mass/Vol] 4.5 g/dL Normal 3.5-5.0 [facility] Comment on above: Performed By: #### L 501.2450, L500.2500, L500.3400, L100.0100 ####[facility] [address] [place], [address] ALK PHOS 99 U/L Normal 35-104 [facility] Comment on above: Performed By: #### L 501.2450, L500.2500, L500.3400, L100.0100 ####[facility] [address] [place], [address] ALT [Catalytic activity/Vol] 40 U/L High <=34 [facility] Comment on above: Performed By: #### L 501.2450, L500.2500, L500.3400, L100.0100 ####[facility] [address] [place], [address] AST [Catalytic activity/Vol] 48 U/L High <=31 [facility] Comment on above: Result Comment: Hemo lysis present, Results??could be affected.?? Performed By: #### L 501.2450, L500.2500, L500.3400, L100.0100 ####[facility] [address] [place], [address] Bilirubin [Mass/Vol] 0.23 mg/dL Normal 0.00-1.30 [facility] Comment on above: Performed By: #### L 501.2450, L500.2500, L500.3400, L100.0100 ####[facility] [address] [place], [address] D BILI < 0.08 Normal 0.00-0.30 [facility] Comment on above: Result Comment: Hemo lysis present, Results??could be affected.?? Performed By: #### L 501.2450, L500.2500, L500.3400, L100.0100 ####[facility] [address] [place], [address] Globulin (S) [Mass/Vol] 3.3 g/dL Normal 2.2-4.2 [facility] Comment on above: Performed By: #### L 501.2450, L500.2500, L500.3400, L100.0100 ####[facility] [address] [place], [address] T PROT 7.8 g/dL Normal 5.9-8.4 [facility] Comment on above: Performed By: #### L 501.2450, L500.2500, L500.3400, L100.0100 ####[facility] [address] [place], [address] CBC W/Diff, Automatedon 06-14 Absolute Lymph 1.50 X10 3/uL Normal 0.83-4.51 [facility] Comment on above: Performed By: #### L 100.0100, L500.3400, L501.2450 ####[facility] [address] [place], [address] Absolute Neut 4.9 X10 3/uL Normal 2.0-7.7 [facility] Comment on above: Performed By: #### L 100.0100, L500.3400, L501.2450 ####[facility] [address] [place], [address] Basophils/100 WBC (Bld) 0.7 % Normal 0-1 [facility] Comment on above: Performed By: #### L 100.0100, L500.3400, L501.2450 ####[facility] [address] [place], [address] Eosinophils/100 WBC (Bld) 1.0 % Normal 0-5 [facility] Comment on above: Performed By: #### L 100.0100, L500.3400, L501.2450 ####[facility] [address] [place], [address] Erythrocyte distribution width (RBC) [Ratio] 13.3 % Normal 11.6-14.6 [facility] Comment on above: Performed By: #### L 100.0100, L500.3400, L501.2450 ####[facility] [address] [place], [address] Hematocrit (Bld) [Volume fraction] 43.2 % Normal 37-47 [facility] Comment on above: Performed By: #### L 100.0100, L500.3400, L501.2450 ####[facility] [address] [place], [address] Hemoglobin (Bld) [Mass/Vol] 13.9 g/dL Normal 12.0-15.0 [facility] Comment on above: Performed By: #### L 100.0100, L500.3400, L501.2450 ####[facility] [address] [place], [address] IG% 0.300 Normal 0.0-0.9 [facility] Comment on above: Result Comment: IG% - Immature Granulocytes (promyelocytes, myelocytes andmetamyelocytes) > 1% indicates that a LEFT SHIFT is Present. Performed By: #### L 100.0100, L500.3400, L501.2450 ####[facility] [address] [place], [address] Lymphocytes/100 WBC (Bld) 21.3 % Normal 19-41 [facility] Comment on above: Performed By: #### L 100.0100, L500.3400, L501.2450 ####[facility] [address] [place], [address] MCH (RBC) [Entitic mass] 27.1 pg Normal 27.0-32.0 [facility] Comment on above: Performed By: #### L 100.0100, L500.3400, L501.2450 ####[facility] [address] [place], [address] MCHC (RBC) [Mass/Vol] 32.2 g/dL Normal 32-36 [facility] Comment on above: Performed By: #### L 100.0100, L500.3400, L501.2450 ####[facility] [address] [place], [address] MCV (RBC) [Entitic vol] 84.2 fL Normal 81-99 [facility] Comment on above: Performed By: #### L 100.0100, L500.3400, L501.2450 ####[facility] [address] [place], [address] Monocytes/100 WBC (Bld) 7.0 % Normal 0-10 [facility] Comment on above: Performed By: #### L 100.0100, L500.3400, L501.2450 ####[facility] [address] [place], [address] Neutrophils/100 WBC (Bld) 69.7 % Normal 47-70 [facility] Comment on above: Performed By: #### L 100.0100, L500.3400, L501.2450 ####[facility] [address] [place], [address] Nucleated RBC (Bld) [#/Vol] 0 10*3/uL Normal 0-5 [facility] Comment on above: Performed By: #### L 100.0100, L500.3400, L501.2450 ####[facility] [address] [place], [address] Platelet mean volume (Bld) [Entitic vol] 10.5 fL Normal 6.2-12.0 [facility] Comment on above: Performed By: #### L 100.0100, L500.3400, L501.2450 ####[facility] [address] [place], [address] Platelets (Bld) [#/Vol] 386 10*3/uL Normal 150-450 [facility] Comment on above: Performed By: #### L 100.0100, L500.3400, L501.2450 ####[facility] [address] [place], [address] RBC (Bld) [#/Vol] 5.13 10*6/uL Normal 4.2-5.4 [facility] Comment on above: Performed By: #### L 100.0100, L500.3400, L501.2450 ####[facility] [address] [place], [address] RDW SD 41.3 fl Normal 35.1-43.9 [facility] Comment on above: Performed By: #### L 100.0100, L500.3400, L501.2450 ####[facility] [address] [place], [address] WBC (Bld) [#/Vol] 7.1 10*3/uL Normal 4.4-11.0 [facility] Comment on above: Performed By: #### L 100.0100, L500.3400, L501.2450 ####[facility] [address] [place], [address] Emergency Department Summary on 06-27-2024 Emergency Department Summary Normal [facility] Lipaseon 06-27-2024 Lipase [Catalytic activity/Vol] 14 U/L Normal 13-75 [facility] Comment on above: Result Comment: Scarlett gonzalez note:LIPASE revised reference range effective 22.New Lipase methodology. Expected to produce lower valuesthan the previous assay method.NEW Reference Range: 13 - 75 U/L Performed By: #### L 100.0100, L500.3400, L501.2450 ####[facility] [address] [place], [address] Liver Profileon 06-27-2024 Albumin [Mass/Vol] 4.5 g/dL Normal 3.5-5.0 [facility] Comment on above: Performed By: #### L 100.0100, L500.3400, L501.2450 ####[facility] [address] [place], [address] ALK PHOS 108 U/L High 35-104 [facility] Comment on above: Performed By: #### L 100.0100, L500.3400, L501.2450 ####[facility] [address], [address] ALT [Catalytic activity/Vol] 24 U/L Normal <=34 [facility] Comment on above: Performed By: #### L 100.0100, L500.3400, L501.2450 ####[facility] [address], [address] AST [Catalytic activity/Vol] 34 U/L High <=31 [facility] Comment on above: Performed By: #### L 100.0100, L500.3400, L501.2450 ####[facility] [address] [place], [address] Bilirubin [Mass/Vol] 0.25 mg/dL Normal 0.00-1.30 [facility] Comment on above: Performed By: #### L 100.0100, L500.3400, L501.2450 ####[facility] [address] [place], [address] Bilirubin.direct [Mass/Vol] 0.13 mg/dL Normal 0.00-0.30 [facility] Comment on above: Performed By: #### L 100.0100, L500.3400, L501.2450 ####[facility] [address] [place], [address] Globulin (S) [Mass/Vol] 3.2 g/dL Normal 2.2-4.2 [facility] Comment on above: Performed By: #### L 100.0100, L500.3400, L501.2450 ####[facility] [address] [place], [address] T PROT 7.6 g/dL Normal 5.9-8.4 [facility] Comment on above: Performed By: #### L 100.0100, L500.3400, L501.2450 ####[facility] [address] [place], [address] Gallbladderon 06-26-2024 Gallbladder Normal [facility] Stool Occult Blood iFOBon STOB Negative Normal [facility] Comment on above: Performed By: #### M 100.7900 ####[facility] [address] [place], [address] CBC W/Diff, Automatedon 06-14 Absolute Lymph 1.79 X10 3/uL Normal 0.83-4.51 [facility] Comment on above: Performed By: #### L 100.0100, L500.4050 ####[facility] [address] [place], [address] Absolute Neut 5.5 X10 3/uL Normal 2.0-7.7 [facility] Comment on above: Performed By: #### L 100.0100, L500.4050 ####[facility] [address] [place], [address] Basophils/100 WBC (Bld) 0.7 % Normal 0-1 [facility] Comment on above: Performed By: #### L 100.0100, L500.4050 ####[facility] [address] [place], [address] Eosinophils/100 WBC (Bld) 1.2 % Normal 0-5 [facility] Comment on above: Performed By: #### L 100.0100, L500.4050 ####[facility] [address] [place], [address] Erythrocyte distribution width (RBC) [Ratio] 13.5 % Normal 11.6-14.6 [facility] Comment on above: Performed By: #### L 100.0100, L500.4050 ####[facility] [address] [place], [address] Hematocrit (Bld) [Volume fraction] 37.2 % Normal 37-47 [facility] Comment on above: Performed By: #### L 100.0100, L500.4050 ####[facility] [address] [place], [address] Hemoglobin (Bld) [Mass/Vol] 11.8 g/dL Low 12.0-15.0 [facility] Comment on above: Performed By: #### L 100.0100, L500.4050 ####[facility] [address] [place], [address] IG% 0.200 Normal 0.0-0.9 [facility] Comment on above: Result Comment: IG% - Immature Granulocytes (promyelocytes, myelocytes andmetamyelocytes) > 1% indicates that a LEFT SHIFT is Present. Performed By: #### L 100.0100, L500.4050 ####[facility] [address] [place], [address] Lymphocytes/100 WBC (Bld) 22.3 % Normal 19-41 [facility] Comment on above: Performed By: #### L 100.0100, L500.4050 ####[facility] [address] [place], [address] MCH (RBC) [Entitic mass] 26.4 pg Low 27.0-32.0 [facility] Comment on above: Performed By: #### L 100.0100, L500.4050 ####[facility] [address] [place], [address] MCHC (RBC) [Mass/Vol] 31.7 g/dL Low 32-36 [facility] Comment on above: Performed By: #### L 100.0100, L500.4050 ####[facility] [address] [place], [address] MCV (RBC) [Entitic vol] 83.2 fL Normal 81-99 [facility] Comment on above: Performed By: #### L 100.0100, L500.4050 ####[facility] [address] [place], [address] Monocytes/100 WBC (Bld) 6.5 % Normal 0-10 [facility] Comment on above: Performed By: #### L 100.0100, L500.4050 ####[facility] [address] [place], [address] Neutrophils/100 WBC (Bld) 69.1 % Normal 47-70 [facility] Comment on above: Performed By: #### L 100.0100, L500.4050 ####[facility] [address] [place], [address] Nucleated RBC (Bld) [#/Vol] 0 10*3/uL Normal 0-5 [facility] Comment on above: Performed By: #### L 100.0100, L500.4050 ####[facility] [address] [place], [address] Platelet mean volume (Bld) [Entitic vol] 9.6 fL Normal 6.2-12.0 [facility] Comment on above: Performed By: #### L 100.0100, L500.4050 ####[facility] [address] [place], [address] Platelets (Bld) [#/Vol] 350 10*3/uL Normal 150-450 [facility] Comment on above: Performed By: #### L 100.0100, L500.4050 ####[facility] [address] [place], [address] RBC (Bld) [#/Vol] 4.47 10*6/uL Normal 4.2-5.4 [facility] Comment on above: Performed By: #### L 100.0100, L500.4050 ####[facility] [address] [place], [address] RDW SD 41.3 fl Normal 35.1-43.9 [facility] Comment on above: Performed By: #### L 100.0100, L500.4050 ####[facility] [address] [place], [address] WBC (Bld) [#/Vol] 8.0 10*3/uL Normal 4.4-11.0 [facility] Comment on above: Performed By: #### L 100.0100, L500.4050 ####[facility] [address] [place], [address] Comprehensive Metabolic Prof ilon 06-24-2024 Albumin [Mass/Vol] 4.0 g/dL Normal 3.5-5.0 [facility] Comment on above: Performed By: #### L 100.0100, L500.4050 ####[facility] [address] [place], [address] Albumin/Globulin [Mass ratio] 1.4 {ratio} Normal 0.9-2.4 [facility] Comment on above: Performed By: #### L 100.0100, L500.4050 ####[facility] [address] [place], [address] ALK PHOS 105 U/L High 35-104 [facility] Comment on above: Performed By: #### L 100.0100, L500.4050 ####[facility] [address] [place], [address] ALT [Catalytic activity/Vol] 14 U/L Normal <=34 [facility] Comment on above: Performed By: #### L 100.0100, L500.4050 ####[facility] [address] [place], [address] AST [Catalytic activity/Vol] 20 U/L Normal <=31 [facility] Comment on above: Performed By: #### L 100.0100, L500.4050 ####[facility] [address] [place], [address] Bilirubin [Mass/Vol] 0.30 mg/dL Normal 0.00-1.30 [facility] Comment on above: Performed By: #### L 100.0100, L500.4050 ####[facility] [address] [place], [address] BUN/CRE 13.1 RATIO Normal 10-20 [facility] Comment on above: Performed By: #### L 100.0100, L500.4050 ####[facility] [address] [place], [address] Calcium [Mass/Vol] 8.9 mg/dL Normal 7.6-11.0 [facility] Comment on above: Performed By: #### L 100.0100, L500.4050 ####[facility] [address] [place], [address] Chloride [Moles/Vol] 101 mmol/L Normal 98-108 [facility] Comment on above: Performed By: #### L 100.0100, L500.4050 ####[facility] [address] [place], [address] CO2 [Moles/Vol] 23.7 mmol/L Normal 21.0-32.0 [facility] Comment on above: Performed By: #### L 100.0100, L500.4050 ####[facility] [address] [place], [address] Creatinine [Mass/Vol] 0.75 mg/dL Normal 0.70-1.20 [facility] Comment on above: Performed By: #### L 100.0100, L500.4050 ####[facility] [address] [place], [address] GAP 11 Normal 5-15 [facility] Comment on above: Performed By: #### L 100.0100, L500.4050 ####[facility] [address] [place], [address] GFR/1.73 sq M.predicted among non-blacks MDRD (S/P/Bld) [Vol rate/Area] 115 mL/min/{1.73_m2} Normal >60 [facility] Comment on above: Result Comment: mL/m in/1.73m2 CKD-EPI Creatinine Equation (2020) Performed By: #### L 100.0100, L500.4050 ####[facility] [address] [place], [address] Globulin (S) [Mass/Vol] 2.8 g/dL Normal 2.2-4.2 [facility] Comment on above: Performed By: #### L 100.0100, L500.4050 ####[facility] [address] [place], [address] Glucose [Mass/Vol] 88 mg/dL Normal 70-99 [facility] Comment on above: Performed By: #### L 100.0100, L500.4050 ####[facility] [address] [place], [address] Potassium [Moles/Vol] 4.2 mmol/L Normal 3.3-5.1 [facility] Comment on above: Performed By: #### L 100.0100, L500.4050 ####[facility] [address] [place], [address] Sodium [Moles/Vol] 135 mmol/L Normal 133-145 [facility] Comment on above: Performed By: #### L 100.0100, L500.4050 ####[facility] [address] [place], [address] T PROT 6.8 g/dL Normal 5.9-8.4 [facility] Comment on above: Performed By: #### L 100.0100, L500.4050 ####[facility] [address] [place], [address] Urea nitrogen [Mass/Vol] 10 mg/dL Normal 4-19 [facility] Comment on above: Performed By: #### L 100.0100, L500.4050 ####[facility] [address] [place], [address] Gastroenterology Visit Repor ton 06-24-2024 Gastroenterology Visit Report Normal [facility] Comprehensive Metabolic Prof ilon 06-23-2024 Albumin [Mass/Vol] 4.2 g/dL Normal 3.5-5.0 [facility] Comment on above: Performed By: #### L 500.4050, L501.2450, L100.0100 ####[facility] [address] [place], [address] Albumin/Globulin [Mass ratio] 1.4 {ratio} Normal 0.9-2.4 [facility] Comment on above: Performed By: #### L 500.4050, L501.2450, L100.0100 ####[facility] [address] [place], [address] ALK PHOS 123 U/L High 35-104 [facility] Comment on above: Performed By: #### L 500.4050, L501.2450, L100.0100 ####[facility] [address] [place], [address] ALT [Catalytic activity/Vol] 14 U/L Normal <=34 [facility] Comment on above: Performed By: #### L 500.4050, L501.2450, L100.0100 ####[facility] [address] [place], [address] AST [Catalytic activity/Vol] 23 U/L Normal <=31 [facility] Comment on above: Result Comment: Hemo lysis present, Results??could be affected.?? Performed By: #### L 500.4050, L501.2450, L100.0100 ####[facility] [address] [place], [address] Bilirubin [Mass/Vol] 0.22 mg/dL Normal 0.00-1.30 [facility] Comment on above: Performed By: #### L 500.4050, L501.2450, L100.0100 ####[facility] [address] [place], [address] BUN/CRE 10.8 RATIO Normal 10-20 [facility] Comment on above: Performed By: #### L 500.4050, L501.2450, L100.0100 ####[facility] [address] [place], [address] Calcium [Mass/Vol] 9.3 mg/dL Normal 7.6-11.0 [facility] Comment on above: Performed By: #### L 500.4050, L501.2450, L100.0100 ####[facility] [address] [place], [address] Chloride [Moles/Vol] 101 mmol/L Normal 98-108 [facility] Comment on above: Performed By: #### L 500.4050, L501.2450, L100.0100 ####[facility] [address] [place], [address] CO2 [Moles/Vol] 20.4 mmol/L Low 21.0-32.0 [facility] Comment on above: Performed By: #### L 500.4050, L501.2450, L100.0100 ####[facility] [address] [place], [address] Creatinine [Mass/Vol] 0.76 mg/dL Normal 0.70-1.20 [facility] Comment on above: Performed By: #### L 500.4050, L501.2450, L100.0100 ####[facility] [address] [place], [address] ECRCL 132.52 ml/min Normal 50-250 [facility] Comment on above: Performed By: #### L 500.4050, L501.2450, L100.0100 ####[facility] [address] [place], [address] GAP 15 Normal 5-15 [facility] Comment on above: Performed By: #### L 500.4050, L501.2450, L100.0100 ####[facility] [address] [place], [address] GFR/1.73 sq M.predicted among non-blacks MDRD (S/P/Bld) [Vol rate/Area] 114 mL/min/{1.73_m2} Normal >60 [facility] Comment on above: Result Comment: mL/m in/1.73m2 CKD-EPI Creatinine Equation (2020) Performed By: #### L 500.4050, L501.2450, L100.0100 ####[facility] [address] [place], [address] Globulin (S) [Mass/Vol] 3.0 g/dL Normal 2.2-4.2 [facility] Comment on above: Performed By: #### L 500.4050, L501.2450, L100.0100 ####[facility] [address] [place], [address] Glucose [Mass/Vol] 85 mg/dL Normal 70-99 [facility] Comment on above: Performed By: #### L 500.4050, L501.2450, L100.0100 ####[facility] [address] [place], [address] Potassium [Moles/Vol] 3.8 mmol/L Normal 3.3-5.1 [facility] Comment on above: Result Comment: Hemo lysis present, Results??could be affected.?? Performed By: #### L 500.4050, L501.2450, L100.0100 ####[facility] [address] [place], [address] Sodium [Moles/Vol] 137 mmol/L Normal 133-145 [facility] Comment on above: Performed By: #### L 500.4050, L501.2450, L100.0100 ####[facility] [address] [place], [address] T PROT 7.2 g/dL Normal 5.9-8.4 [facility] Comment on above: Performed By: #### L 500.4050, L501.2450, L100.0100 ####[facility] [address], [address] Urea nitrogen [Mass/Vol] 8 mg/dL Normal 4-19 [facility] Comment on above: Performed By: #### L 500.4050, L501.2450, L100.0100 ####[facility] [address] [place], [address] CBC W/Diff, Automatedon 03-0 9-2024 Absolute Lymph 2.90 X10 3/uL Normal 0.83-4.51 [facility] Comment on above: Performed By: #### L 500.4050, L501.2450, L100.0100 ####[facility] [address] [place], [address] Absolute Neut 7.8 X10 3/uL High 2.0-7.7 [facility] Comment on above: Performed By: #### L 500.4050, L501.2450, L100.0100 ####[facility] [address] [place], [address] Basophils/100 WBC (Bld) 0.4 % Normal 0-1 [facility] Comment on above: Performed By: #### L 500.4050, L501.2450, L100.0100 ####[facility] [address] [place], [address] Eosinophils/100 WBC (Bld) 0.7 % Normal 0-5 [facility] Comment on above: Performed By: #### L 500.4050, L501.2450, L100.0100 ####[facility] [address] [place], [address] Erythrocyte distribution width (RBC) [Ratio] 13.5 % Normal 11.6-14.6 [facility] Comment on above: Performed By: #### L 500.4050, L501.2450, L100.0100 ####[facility] [address] [place], [address] Hematocrit (Bld) [Volume fraction] 40.6 % Normal 37-47 [facility] Comment on above: Performed By: #### L 500.4050, L501.2450, L100.0100 ####[facility] [address] [place], [address] Hemoglobin (Bld) [Mass/Vol] 13.0 g/dL Normal 12.0-15.0 [facility] Comment on above: Performed By: #### L 500.4050, L501.2450, L100.0100 ####[facility] [address] [place], [address] IG% 0.300 Normal 0.0-0.9 [facility] Comment on above: Result Comment: IG% - Immature Granulocytes (promyelocytes, myelocytes andmetamyelocytes) > 1% indicates that a LEFT SHIFT is Present. Performed By: #### L 500.4050, L501.2450, L100.0100 ####[facility] [address] [place], [address] Lymphocytes/100 WBC (Bld) 25.2 % Normal 19-41 [facility] Comment on above: Performed By: #### L 500.4050, L501.2450, L100.0100 ####[facility] [address] [place], [address] MCH (RBC) [Entitic mass] 26.8 pg Low 27.0-32.0 [facility] Comment on above: Performed By: #### L 500.4050, L501.2450, L100.0100 ####[facility] [address] [place], [address] MCHC (RBC) [Mass/Vol] 32.0 g/dL Normal 32-36 [facility] Comment on above: Performed By: #### L 500.4050, L501.2450, L100.0100 ####[facility] [address] [place], [address] MCV (RBC) [Entitic vol] 83.7 fL Normal 81-99 [facility] Comment on above: Performed By: #### L 500.4050, L501.2450, L100.0100 ####[facility] [address] [place], [address] Monocytes/100 WBC (Bld) 6.1 % Normal 0-10 [facility] Comment on above: Performed By: #### L 500.4050, L501.2450, L100.0100 ####[facility] [address] [place], [address] Neutrophils/100 WBC (Bld) 67.3 % Normal 47-70 [facility] Comment on above: Performed By: #### L 500.4050, L501.2450, L100.0100 ####[facility] [address] [place], [address] Nucleated RBC (Bld) [#/Vol] 0 10*3/uL Normal 0-5 [facility] Comment on above: Performed By: #### L 500.4050, L501.2450, L100.0100 ####[facility] [address] [place], [address] Platelet mean volume (Bld) [Entitic vol] 10.1 fL Normal 6.2-12.0 [facility] Comment on above: Performed By: #### L 500.4050, L501.2450, L100.0100 ####[facility] [address] [place], [address] Platelets (Bld) [#/Vol] 404 10*3/uL Normal 150-450 [facility] Comment on above: Performed By: #### L 500.4050, L501.2450, L100.0100 ####[facility] [address] [place], [address] RBC (Bld) [#/Vol] 4.85 10*6/uL Normal 4.2-5.4 [facility] Comment on above: Performed By: #### L 500.4050, L501.2450, L100.0100 ####[facility] [address] [place], [address] RDW SD 41.2 fl Normal 35.1-43.9 [facility] Comment on above: Performed By: #### L 500.4050, L501.2450, L100.0100 ####[facility] [address] [place], [address] WBC (Bld) [#/Vol] 11.5 10*3/uL High 4.4-11.0 [facility] Comment on above: Performed By: #### L 500.4050, L501.2450, L100.0100 ####[facility] [address] [place], [address] Emergency Department Summary on 06-22-2024 Emergency Department Summary Normal [facility] Lipaseon 06-22-2024 Lipase [Catalytic activity/Vol] 14 U/L Normal 13-75 [facility] Comment on above: Result Comment: Scarlett gonzalez note:LIPASE revised reference range effective 22.New Lipase methodology. Expected to produce lower valuesthan the previous assay method.NEW Reference Range: 13 - 75 U/L Performed By: #### L 500.4050, L501.2450, L100.0100 ####[facility] [address] [place], [address] ,Urineon 06-22-2024 Beta HCG ( test) Ql (U) Negative Normal [facility] Comment on above: Result Comment: Very dilute urine specimens, as indicated by a low specificgravity, may not contain union representative levels of hCG.If is still suspected, a first morning urinespecimen should be collected 48 hours later and tested. Performed By: #### L 400.7600 ####[facility] [address] [place], [address] MR/BMS.BPon 06-06-2024 MR/BMS.BP Normal [facility] Thoracic Spine 3 Viewson Thoracic Spine 3 Views Normal [facility] CNOVon 06-02-2024 CNOV Office Visit (UCWSTR ) ACE LEONARDO ([id number]) 2 F Date Time Provider Department 06/02/24 11:45 AM MICHELLE HANCOCK [facility] During your visit today, we recorded the following information about you: Temperature Pulse Respiration Blood pressure 98.8 degrees 108/minute 18/minute 142/86 Weight 106.7 kg Michelle Hancock PA-C 06/02/2024 12:32 PM Signed This note was created using Roomtagriter. Subjective Ace Leonardo is a 23 year [...] Date Review (more content not included)... Normal [facility] XR LUMBAR 3V AP/LAT/L5-S1on 06-02-2024 XR LUMBAR [...] vertebrae. Anatomic Variants: None. IMPRESSION: Unremarkable exam Dice Person: [facility] Transcribe Date/Time: Jun 02 2024 12:23P Dictated by : MICHELLE VARGAS MD This examination was interpreted and the report reviewed and electronically signed by: MICHELLE VARGAS MD on Jun 02 2024 12:24PM EST [id number] Normal [facility] XR Lumbar spine 3 Viewson IMPRESSION: Unremarkable exam Dice Person: [facility] Transcribe Date/Time: Jun 02 2024 12:23P Dictated by : MICHELLE VARGAS MD This examination was interpreted and the report reviewed and electronically signed by: MICHELLE VARGAS MD on Jun 02 2024 12:24PM [facility] DIVISION OF RADIOLOGY * * *Final Report* [...] Anatomic Variants: None. DIVISION OF RADIOLOGY Provider, Jeovany Millerjimmie [facility] - 06/02/2024 * * *Final Report* * [...] Anatomic Variants: None. IMPRESSION IMPRESSION: Unremarkable exam [facility]ice [facility] Transcribe Date/Time: Jun 02 2024 12:23P Dictated by : MICHELLE VARGAS MD This examination was interpreted and the report reviewed and electronically signed by: MICHELLE VARGAS MD on Jun 02 2024 12:24PM EST [facility] Radiology Study observation (narrative) [facility] XR Lumbar spine 3 ViewsOrder ed By: [facility] Provider on 06-02-2024 [facility] Intrinsic Factor Abon 2024 INTRINS FACT AB 1.0 AU/mL Normal 0.0-1.1 [facility] Comment on above: Result Comment: Perf ormed at: [facility] [id number] Director: Kiki Tyson MD, Phone: [phone] Performed By: #### L 1890.2079, L500.1754, L503.1630, L500.7006 ####[facility] [address] [place], [address] Comprehensive Metabolic Prof ilon 05-08-2024 Albumin [Mass/Vol] 3.3 g/dL Normal 3.2-5.0 [facility] Comment on above: Performed By: #### L 3410.0900, L501.9520, L503.0105, L500.4050 ####[facility] [address] [place], [address] Albumin/Globulin [Mass ratio] 0.8 {ratio} Low 0.9-2.4 [facility] Comment on above: Performed By: #### L 3410.0900, L501.9520, L503.0105, L500.4050 ####[facility] [address] [place], [address] ALK P 86 U/L Normal 45-117 [facility] Comment on above: Performed By: #### L 3410.0900, L501.9520, L503.0105, L500.4050 ####[facility] [address] [place], [address] ALT [Catalytic activity/Vol] 20 U/L Normal 13-56 [facility] Comment on above: Performed By: #### L 3410.0900, L501.9520, L503.0105, L500.4050 ####[facility] [address] [place], [address] AST [Catalytic activity/Vol] 20 U/L Normal 15-37 [facility] Comment on above: Performed By: #### L 3410.0900, L501.9520, L503.0105, L500.4050 ####[facility] [address] [place], [address] Bilirubin [Mass/Vol] 0.30 mg/dL Normal 0.20-1.00 [facility] Comment on above: Result Comment: For patients on eltrombopag therapy, use of Dimension [place] TBIL is not recommended. Performed By: #### L 3410.0900, L501.9520, L503.0105, L500.4050 ####[facility] [address] [place], [address] BUN/CRE 14.0 RATIO Normal 10-20 [facility] Comment on above: Performed By: #### L 3410.0900, L501.9520, L503.0105, L500.4050 ####[facility] [address] [place], [address] CA,Total 9.1 mg/dL Normal 8.5-10.1 [facility] Comment on above: Performed By: #### L 3410.0900, L501.9520, L503.0105, L500.4050 ####[facility] [address] [place], [address] Chloride [Moles/Vol] 105 mmol/L Normal 98-107 [facility] Comment on above: Performed By: #### L 3410.0900, L501.9520, L503.0105, L500.4050 ####[facility] [address] [place], [address] CO2 [Moles/Vol] 26.0 mmol/L Normal 21.0-32.0 [facility] Comment on above: Performed By: #### L 3410.0900, L501.9520, L503.0105, L500.4050 ####[facility] [address] [place], [address] Creatinine [Mass/Vol] 0.71 mg/dL Normal 0.55-1.02 [facility] Comment on above: Result Comment: The validity of the calculated GFR GFRAA in patients over70 years has not been determined. Clinical correlation isessential. Performed By: #### L 3410.0900, L501.9520, L503.0105, L500.4050 ####[facility] [address] [place], [address] EST GFR - AA 131 mL/min Normal >60 [facility] Comment on above: Result Comment: Afri can Uzbek GFR Calc Performed By: #### L 3410.0900, L501.9520, L503.0105, L500.4050 ####[facility] [address] [place], [address] GAP 7 Normal 5-15 [facility] Comment on above: Performed By: #### L 3410.0900, L501.9520, L503.0105, L500.4050 ####[facility] [address] [place], [address] GFR/1.73 sq M.predicted among non-blacks MDRD (S/P/Bld) [Vol rate/Area] 109 mL/min/{1.73_m2} Normal >60 [facility] Comment on above: Result Comment: Non- GFR Calc Performed By: #### L 3410.0900, L501.9520, L503.0105, L500.4050 ####[facility] [address] [place], [address] Globulin (S) [Mass/Vol] 3.9 g/dL Normal 2.2-4.2 [facility] Comment on above: Performed By: #### L 3410.0900, L501.9520, L503.0105, L500.4050 ####[facility] [address] [place], [address] Glucose [Mass/Vol] 75 mg/dL Normal 74-106 [facility] Comment on above: Performed By: #### L 3410.0900, L501.9520, L503.0105, L500.4050 ####[facility] [address] [place], [address] Potassium [Moles/Vol] 3.8 mmol/L Normal 3.5-5.1 [facility] Comment on above: Performed By: #### L 3410.0900, L501.9520, L503.0105, L500.4050 ####[facility] [address] [place], [address] Sodium [Moles/Vol] 137 mmol/L Normal 136-145 [facility] Comment on above: Performed By: #### L 3410.0900, L501.9520, L503.0105, L500.4050 ####[facility] [address] [place], [address] T PROT 7.2 g/dL Normal 6.4-8.2 [facility] Comment on above: Performed By: #### L 3410.0900, L501.9520, L503.0105, L500.4050 ####[facility] [address] [place], [address] Urea nitrogen [Mass/Vol] 10 mg/dL Normal 7-18 [facility] Comment on above: Performed By: #### L 3410.0900, L501.9520, L503.0105, L500.4050 ####[facility] [address] [place], [address] Thyroid Stim Hormone (TSH)on 05-08-2024 TSH 3.790 uIU/mL High 0.358-3.740 [facility] Comment on above: Performed By: #### L 3410.0900, L501.9520, L503.0105, L500.4050 ####[facility] [address] [place], [address] Vitamin B12on 05-08-2024 Cobalamin (Vitamin B12) [Mass/Vol] 241 pg/mL Normal 211-911 [facility] Comment on above: Performed By: #### L 3410.0900, L501.9520, L503.0105, L500.4050 ####[facility] [address] [place], [address] MR/BMS.BPon 05-06-2024 MR/BMS.BP Normal [facility] MR/BMS.BPon 04-27-2024 MR/BMS.BP Normal [facility] MR/BMS.BPon 04-03-2024 MR/BMS.BP Normal [facility] POLYSOMNOGRAM (PSG)/HOME SLE EP APNEA TEST (HSAT)on 03-28-2024 POLYSOMNOGRAM (PSG)/HOME SLEEP APNEA TEST (HSAT) [facility] at [address], [address] [address] ; Home Sleep Apnea Test (HSAT) Study Report Name: ACE LEONARDO Date of Study: 03/28/2024 CC#: [id number] Age: 23 (: 2000) ESS: 03/09 Neck [...] unattended Type III, minimum of 4 parameters (02651) Procedure: This study was performed using a Type III ambulatory PSG device and was unattended. The patient was instructed on proper use of the device by a registered chief cardiopulmonary technologist. The monitored parameters included heart rate, [...] By: ALVARADO HERNANDEZ (04/07/2024 4:13:37 PM) Normal [facility] CNOVon 03-18-2024 CNOV Office Visit (NEMOWS ) ACE LEONARDO ([id number]) 2 F Date Time Provider Department 03/18/24 [...] Patient presents for follow-up. Notes that her windows deployment technician increased her metoprolol to 50 mg and [...] and dizzines (more content not included)... Normal [facility] Cardiology Visit Reporton Cardiology Visit Report Normal [facility] CBC W/Diff, Automatedon Absolute Lymph 4.01 X10 3/uL Normal 0.83-4.51 [facility] Comment on above: Order Comment: Order Date: 02/19/24Order Info: [id number] - CBCD Performed By: #### L 500.4050, L700.5500, L100.0100 ####[facility] [address] [address]. [place], [place], [id number] Absolute Neut 12.2 X10 3/uL High 2.0-7.7 [facility] Comment on above: Order Comment: Order Date: 02/19/24Order Info: 0184-1 - CBCD Performed By: #### L 500.4050, L700.5500, L100.0100 ####[facility] [address] [place], [address] Basophils/100 WBC (Bld) 0.6 % Normal 0-1 [facility] Comment on above: Order Comment: Order Date: 02/19/24Order Info: 0184-1 - CBCD Performed By: #### L 500.4050, L700.5500, L100.0100 ####[facility] [address] [place], [address] Eosinophils/100 WBC (Bld) 1.0 % Normal 0-5 [facility] Comment on above: Order Comment: Order Date: 02/19/24Order Info: 0184-1 - CBCD Performed By: #### L 500.4050, L700.5500, L100.0100 ####[facility] [address] [place], [address] Erythrocyte distribution width (RBC) [Ratio] 14.0 % Normal 11.6-14.6 [facility] Comment on above: Order Comment: Order Date: 02/19/24Order Info: 0184- - CBCD Performed By: #### L 500.4050, L700.5500, L100.0100 ####[facility] [address] [place], [address] Hematocrit (Bld) [Volume fraction] 41.7 % Normal 37-47 [facility] Comment on above: Order Comment: Order Date: 02/19/24Order Info: 0184- - CBCD Performed By: #### L 500.4050, L700.5500, L100.0100 ####[facility] [address] [place], [address] Hemoglobin (Bld) [Mass/Vol] 12.9 g/dL Normal 12.0-15.0 [facility] Comment on above: Order Comment: Order Date: 02/19/24Order Info: 0184-1 - CBCD Performed By: #### L 500.4050, L700.5500, L100.0100 ####[facility] [address] [place], [address] IG% 1.300 High 0.0-0.9 [facility] Comment on above: Order Comment: Order Date: 02/19/24Order Info: 0184-1 - CBCD Result Comment: IG% - Immature Granulocytes (promyelocytes, myelocytes andmetamyelocytes) > 1% indicates that a LEFT SHIFT is Present. Performed By: #### L 500.4050, L700.5500, L100.0100 ####[facility] [address] [place], [address] Lymphocytes/100 WBC (Bld) 22.5 % Normal 19-41 [facility] Comment on above: Order Comment: Order Date: 02/19/24Order Info: 018- - CBCD Performed By: #### L 500.4050, L700.5500, L100.0100 ####[facility] [address] [place], [address] MCH (RBC) [Entitic mass] 26.9 pg Low 27.0-32.0 [facility] Comment on above: Order Comment: Order Date: 02/19/24Order Info: 018- - CBCD Performed By: #### L 500.4050, L700.5500, L100.0100 ####[facility] [address] [place], [address] MCHC (RBC) [Mass/Vol] 30.9 g/dL Low 32-36 [facility] Comment on above: Order Comment: Order Date: 02/19/24Order Info: 018- - CBCD Performed By: #### L 500.4050, L700.5500, L100.0100 ####[facility] [address] [place], [address] MCV (RBC) [Entitic vol] 86.9 fL Normal 81-99 [facility] Comment on above: Order Comment: Order Date: 02/19/24Order Info: 018- - CBCD Performed By: #### L 500.4050, L700.5500, L100.0100 ####[facility] [address] [place], [address] Monocytes/100 WBC (Bld) 6.3 % Normal 0-10 [facility] Comment on above: Order Comment: Order Date: 02/19/24Order Info: 0184-1 - CBCD Performed By: #### L 500.4050, L700.5500, L100.0100 ####[facility] [address] [place], [address] Neutrophils/100 WBC (Bld) 68.3 % Normal 47-70 [facility] Comment on above: Order Comment: Order Date: 02/19/24Order Info: 0184-1 - CBCD Performed By: #### L 500.4050, L700.5500, L100.0100 ####[facility] [address] [place], [address] Nucleated RBC (Bld) [#/Vol] 0 10*3/uL Normal 0-5 [facility] Comment on above: Order Comment: Order Date: 02/19/24Order Info: 018- - CBCD Performed By: #### L 500.4050, L700.5500, L100.0100 ####[facility] [address] [place], [address] Platelet mean volume (Bld) [Entitic vol] 10.0 fL Normal 6.2-12.0 [facility] Comment on above: Order Comment: Order Date: 02/19/24Order Info: 0184-1 - CBCD Performed By: #### L 500.4050, L700.5500, L100.0100 ####[facility] [address] [place], [address] Platelets (Bld) [#/Vol] 464 10*3/uL High 150-450 [facility] Comment on above: Order Comment: Order Date: 02/19/24Order Info: 0184-1 - CBCD Performed By: #### L 500.4050, L700.5500, L100.0100 ####[facility] [address] [place], [address] RBC (Bld) [#/Vol] 4.80 10*6/uL Normal 4.2-5.4 [facility] Comment on above: Order Comment: Order Date: 02/19/24Order Info: 0184-1 - CBCD Performed By: #### L 500.4050, L700.5500, L100.0100 ####[facility] [address] [place], [address] RDW SD 44.2 fl High 35.1-43.9 [facility] Comment on above: Order Comment: Order Date: 02/19/24Order Info: 0184-1 - CBCD Performed By: #### L 500.4050, L700.5500, L100.0100 ####[facility] [address] [place], [address] WBC (Bld) [#/Vol] 17.8 10*3/uL High 4.4-11.0 [facility] Comment on above: Order Comment: Order Date: 02/19/24Order Info: 0184-1 - CBCD Performed By: #### L 500.4050, L700.5500, L100.0100 ####[facility] [address] [place], [address] Comprehensive Metabolic Prof kyon 02-19-2024 Albumin [Mass/Vol] 3.4 g/dL Normal 3.2-5.0 [facility] Comment on above: Order Comment: Order Date: 02/19/24Order Info: 0786-1 - CMP Performed By: #### L 500.4050, L700.5500, L100.0100 ####[facility] [address] [place], [address] Albumin/Globulin [Mass ratio] 0.9 {ratio} Normal 0.9-2.4 [facility] Comment on above: Order Comment: Order Date: 02/19/24Order Info: 0786-1 - CMP Performed By: #### L 500.4050, L700.5500, L100.0100 ####[facility] [address] [place], [address] ALK P 90 U/L Normal 45-117 [facility] Comment on above: Order Comment: Order Date: 02/19/24Order Info: 0786-1 - CMP Performed By: #### L 500.4050, L700.5500, L100.0100 ####[facility] [address] [place], [address] ALT [Catalytic activity/Vol] 33 U/L Normal 13-56 [facility] Comment on above: Order Comment: Order Date: 02/19/24Order Info: 0786-1 - CMP Performed By: #### L 500.4050, L700.5500, L100.0100 ####[facility] [address] [place], [address] AST [Catalytic activity/Vol] 13 U/L Low 15-37 [facility] Comment on above: Order Comment: Order Date: 02/19/24Order Info: 0786-1 - CMP Performed By: #### L 500.4050, L700.5500, L100.0100 ####[facility] [address] [place], [address] Bilirubin [Mass/Vol] 0.20 mg/dL Normal 0.20-1.00 [facility] Comment on above: Order Comment: Order Date: 02/19/24Order Info: 0786-1 - CMP Result Comment: For patients on eltrombopag therapy, use of Dimension [place] TBIL is not recommended. Performed By: #### L 500.4050, L700.5500, L100.0100 ####[facility] [address] [place], [address] BUN/CRE 19.5 RATIO Normal 10-20 [facility] Comment on above: Order Comment: Order Date: 02/19/24Order Info: 0786-1 - CMP Performed By: #### L 500.4050, L700.5500, L100.0100 ####[facility] [address] [place], [address] CA,Total 8.7 mg/dL Normal 8.5-10.1 [facility] Comment on above: Order Comment: Order Date: 02/19/24Order Info: 0786-1 - CMP Performed By: #### L 500.4050, L700.5500, L100.0100 ####[facility] [address] [place], [address] Chloride [Moles/Vol] 104 mmol/L Normal 98-107 [facility] Comment on above: Order Comment: Order Date: 02/19/24Order Info: 0786-1 - CMP Performed By: #### L 500.4050, L700.5500, L100.0100 ####[facility] [address] [place], [address] CO2 [Moles/Vol] 30.0 mmol/L Normal 21.0-32.0 [facility] Comment on above: Order Comment: Order Date: 02/19/24Order Info: 0786-1 - CMP Performed By: #### L 500.4050, L700.5500, L100.0100 ####[facility] [address] [place], [address] Creatinine [Mass/Vol] 0.98 mg/dL Normal 0.55-1.02 [facility] Comment on above: Order Comment: Order Date: 02/19/24Order Info: 0786-1 - CMP Result Comment: The validity of the calculated GFR GFRAA in patients over70 years has not been determined. Clinical correlation isessential. Performed By: #### L 500.4050, L700.5500, L100.0100 ####[facility] [address] [place], [address] EST GFR - AA 91 mL/min Normal >60 [facility] Comment on above: Order Comment: Order Date: 02/19/24Order Info: 0786-1 - CMP Result Comment: Afri can [employer]bek GFR Calc Performed By: #### L 500.4050, L700.5500, L100.0100 ####[facility] [address] [place], [address] GAP 4 Low 5-15 [facility] Comment on above: Order Comment: Order Date: 02/19/24Order Info: 0786-1 - CMP Performed By: #### L 500.4050, L700.5500, L100.0100 ####[facility] [address] [place], [address] GFR/1.73 sq M.predicted among non-blacks MDRD (S/P/Bld) [Vol rate/Area] 76 mL/min/{1.73_m2} Normal >60 [facility] Comment on above: Order Comment: Order Date: 02/19/24Order Info: 0786-1 - CMP Result Comment: Non- GFR Calc Performed By: #### L 500.4050, L700.5500, L100.0100 ####[facility] [address] [place], [address] Globulin (S) [Mass/Vol] 3.9 g/dL Normal 2.2-4.2 [facility] Comment on above: Order Comment: Order Date: 02/19/24Order Info: 0786-1 - CMP Performed By: #### L 500.4050, L700.5500, L100.0100 ####[facility] [address] [place], [address] Glucose [Mass/Vol] 81 mg/dL Normal 74-106 [facility] Comment on above: Order Comment: Order Date: 02/19/24Order Info: 0786-1 - CMP Performed By: #### L 500.4050, L700.5500, L100.0100 ####[facility] [address] [place], [address] Potassium [Moles/Vol] 3.6 mmol/L Normal 3.5-5.1 [facility] Comment on above: Order Comment: Order Date: 02/19/24Order Info: 0786-1 - CMP Performed By: #### L 500.4050, L700.5500, L100.0100 ####[facility] [address] [place], [address] Sodium [Moles/Vol] 138 mmol/L Normal 136-145 [facility] Comment on above: Order Comment: Order Date: 02/19/24Order Info: 0786-1 - CMP Performed By: #### L 500.4050, L700.5500, L100.0100 ####[facility] [address] [place], [address] T PROT 7.3 g/dL Normal 6.4-8.2 [facility] Comment on above: Order Comment: Order Date: 02/19/24Order Info: 0786-1 - CMP Performed By: #### L 500.4050, L700.5500, L100.0100 ####[facility] [address] [place], [address] Urea nitrogen [Mass/Vol] 19 mg/dL High 7-18 [facility] Comment on above: Order Comment: Order Date: 02/19/24Order Info: 0786-1 - CMP Performed By: #### L 500.4050, L700.5500, L100.0100 ####[facility] [address] [place], [address] Monoteston 02-19-2024 Monocytes (Bld) [#/Vol] Negative Normal Negative [facility] Comment on above: Order Comment: Order Date: 02/19/24Order Info: 74344-8 - MONO Performed By: #### L 500.4050, L700.5500, L100.0100 ####[facility] [address] [place], [address] CNOVon 02-18-2024 CNOV Office Visit (GENSWS ) ACE LEONARDO ([id number]) 2 F Date Time Provider Department 02/18/24 1:00 PM LAUREN GUO During your visit today, we recorded the following information about you: Lauren Guo MD 03/04/2024 12:26 PM Signed Subjective: Patient is back after an EGD with 48-hour pH probe and esophageal manometry. Her DeMeester score from her 48-hour pH probe was 10.6 which is within the normal range. Her esophageal motility study showed no signs of dysmotility and no Hendrix classification's of any abnormalities. Objective:There were no [...] Allergies) Date Reviewed: 02/18/2024 Reviewed by: Vera Nicholson, HERI - Fully Assessed Reason for Visit: Follow Up [171] Cmt: Esophageal monometry testing Primary Visit Diagnosis:Gastroesophageal reflux disease, unspecified whether esophagitis present [K21.9] Other Visit Diagnoses:Regurgitation of food [R11.10] Class 3 severe obesity due to excess calories without serious comorbidity with body mass index (BMI) of 40.0 to 44.9 in adult ([facility]) [E66.813, E66.01, Z68.41] Prescriptions as of [...] SENSIMIST) 27.5 mcg/actuation nasal spray Use 1 Cypress in each nostril two times a day. [...] >= 40 [E66.01] 02/06/2024 Encounter Status:Closed by LAUREN GUO on 03/04/24 [facility] Daniel 02-12-2024 CNOV Office Visit (UCWSTR ) ACE LEONARDO ([id number]) 2 F Date Time Provider Department 02/12/24 10:45 AM DEANA TOMPKINS [facility] During your visit today, we recorded the following information about you: Temperature Pulse Respiration Blood pressure 100.4 degrees 112/minute 18/minute 122/82 Weight 101.6 kg Deana Tompkins APRN.GRADE RECORDER 02/12/2024 11:24 AM Signed This note was [...] history is provided by the patient. No computer language coder was used. Sore Throat This is a [...] SENSIMIST) 27.5 mcg/actuation nasal spray Use 1 Cypress in each nostril two times a day. [...] distension. Pal (more content not included)... Normal [facility] COVID AND INFLUENZA A/B AND RSV PCR, ROUTINEon 02-12-2024 SARS-CoV-2 (COVID-19) RNA JANINE+probe Ql (Unsp spec) SARS-COV-2 (AGENT OF COVID-19) RNA: Not detected INFLUENZA A RNA: Not detected INFLUENZA B RNA: Not detected RESPIRATORY SYNCYTIAL VIRUS (RSV) RNA: Not detected Normal [facility] Comment on above: Performed By: #### C VFLRS ####[facility] LABCLIA [id number] [place] [address] [place] STREP A MOLECULAR (POC)on Procedural Control Valid [facility] Strep A (POCT) Negative Negative [facility] CNPNon 02-07-2024 CNPN Telephone (AGGENS3) ACE LEONARDO ([id number]) 2 F Date Time Provider Department 02/07/24 PATRIC BOONE During your visit today, we recorded the following information about you: Remigio Villar, RN 02/07/2024 4:16 PM Signed Patient sent a [employer] message about the [employer] cloth reeler so I called her for more information. Ace said that the cloth reeler has disconnected about 5 times since last night, even though it is sitting on my lap. It does reconnect. Patient states the red light flashes and it beeps when it is disconnected but it will reconnect itself. Currently the cloth reeler is connected. Patient is using the lanyard or keeping the cloth reeler in her lap. Patient states she can feel the Smalls capsule in her throat. I asked the patient to try to ride it out until tomorrow afternoon, when the test should be completed, as I believe the cloth reeler is still working. I did tell her that if the cloth reeler starts beeping continuously then put it in another room or her car so it does not keep her awake overnight. Patient agreed with the plan. I gave the patient my contact information. Remigio Villar RN Allergies As of Date: 02/07/2024 (No Known Allergies) Date Reviewed: 02/06/2024 Reviewed by: Pam Feliz RN - Fully Assessed Reason for Visit: Patient Question [3954] Prescriptions as of 02/07/2024 - atomoxetine (STRATTERA) [...] SENSIMIST) 27.5 mcg/actuation nasal spray Use 1 Cypress in each nostril two times a day. [...] Status:Closed by REMIGIO VILLAR on 02/07/24 [facility] ANES POSTPROC EVALon 024 ANES POSTPROC EVAL HNO ID: [id number] Author: KARTHIK DODGE MD Service: Anesthesiology Author Type: Physician Type: Anesthesia Postprocedure Evaluation Filed: 02/06/2024 14:04 Note Text: POST ANESTHESIA EVALUATION NOTE : 2000 Procedure Summary Date: 02/06/24 Room / Location: [facility] / [facility] Anesthesia Start: 1332 Anesthesia Stop: 1353 Procedures: EGD WITH BIOPSY (Left: Abdomen) ESOPHAGEAL ACID REFLUX TEST W/MUCOSAL ATTACHED TELEMETRY PH ELECTRODE PLACEMENT RECORDING, ANALYSIS, AND INTERPRETATION [] (Esophagus) Diagnosis: Gastroesophageal reflux disease, unspecified whether esophagitis present (Gastroesophageal reflux disease, unspecified whether esophagitis present [K21.9]) Surgeons: Patric Boone MD Responsible Provider: Karthik Dodge MD Anesthesia Type: MAC ASA Status: [...] of care. Anesthesia Observations No Documentation SIGNATURE: Karthik Dodge MD PATIENT NAME: Ace Leonardo DATE: February 06, 2024 TIME: 2:04 PM CSN: [id number] [facility] ANES PRE-OPon 02-06-2024 ANES PRE-OP HNO ID: [id number] Author: KARTHIK DODGE MD Service: Anesthesiology Author Type: Physician Type: Anesthesia Preprocedure Evaluation Filed: 02/06/2024 12:02 Note Text: ANESTHESIOLOGY DAY OF SURGERY NOTE : 2000 Procedure Information Date/Time: 02/06/24 1330 Procedures: EGD WITH BIOPSY (Left: Abdomen) ESOPHAGEAL ACID REFLUX TEST W/MUCOSAL ATTACHED TELEMETRY PH ELECTRODE PLACEMENT RECORDING, ANALYSIS, AND INTERPRETATION [] (Esophagus) Location: [facility] / [facility] Surgeons: Patric Boone MD Estimated body mass index is [...] and consent discussed: yes. Patient / Responsible Republican agrees to proceed: yes Patient / Surrogate [...] SENSIMIST) 27.5 mcg/actuation nasal spray Use 1 Cypress in each nostril two times a day. ketotifen fumarate (ZADITOR) 0.025 % (0.035 %) ophthalmic solution Use 1 Drop in both eyes two times a day as needed. I have interviewed and examined the patient. I have reviewed the medical record and/or the pre-anesthesia evaluation, pertinent labs, and test results. This contains updated information obtained within 48 hours of Surgery/Procedure. SIGNATURE: Karthik Dodge MD PATIENT NAME: Ace Leonardo DATE: February 06, 2024 TIME: 11:47 AM CSN: [id number] Normal [facility] EGD Study observation Brock harrsi 02-06-2024 [facility] Gastrointestinal Endoscopy Patient Name: Ace Leonardo Procedure Date: 02/06/2024 1:24 PM Date of : 2000 Admit Type: Outpatient Room: [place] [address] Gender: Female Note Status: Finalized Attending MD: Patric Boone MD, [id number] Procedure: Upper GI endoscopy Indications: Suspected gastro-esophageal reflux disease Providers: Patric Boone MD Referring Physician: Patric Boone MD (Referring MD) Medicines: Monitored Anesthesia [...] antiplatelet agents. Procedure Code(s): --- Professional --- 34560, Esophagogastroduodenoscopy, flexible, transoral; with biopsy, single or multiple --- Technical --- 52336, Esophagogastroduodenoscopy, flexible, transoral; with biopsy, single or multiple 28483, TC, Esophagus, gastroesophageal reflux test; with mucosal attached telemetry pH electrode placement, recording, analysis and interpretation CPT copyright 2020 [employer]. All rights reserved. The codes documented in this report are (more content not included)... PROVATION [facility] Radiology Study observation (narrative) [facility] HCG ( test) Ql (U)O rdered By: Mary Maier on 02-06-2024 Interpretation and review of laboratory results Normal [facility] HCG Preg Ur Qlon 02-06-2024 HCG ( test) Ql (U) Negative Normal Negative [facility] Comment on above: Order Comment: Speci men Type: URINE SPECIMEN Ordering Facility: [facility] Address: [facility] [place] [address] Result Comment: This test is intended to aid in the early detection of . Very dilute urine samples, as indicated by a low specific gravity, may not contain union representative levels of hCG. This test detects [...] . Performed By: #### 2 106-3 #### [facility] CLIA [id number] [address] [place] [place] [address] [place] HCG, QUALITATIVE, URINE PREG NANCYOrdered By: Mary Maier on 02-06-2024 HCG ( test) Ql (U) Negative Negative [facility] Comment on above: This test is intende d to aid in the early detection of . Very dilute urine samples, as indicated by a low specific gravity, may not contain union representative levels of hCG. This test detects [...] . HISTORY PHYSICALon HISTORY PHYSICAL HNO ID: [id number] Author: KARLY MAGAÑA APRN.CNP Service: Anesthesiology Author Type: Nurse Practitioner Type: H&P Filed: 02/06/2024 12:02 Note Text: HISTORY AND PHYSICAL EXAMINATION SERVICE DATE: 02/06/2024 SERVICE TIME: 11:45 AM PRIMARY CARE PHYSICIAN: Karthik Lino MD, MD REASON FOR VISIT: The [...] SURGICAL HISTORY Procedure Laterality Date EGD W/O [facility] SPEC VARICIES INJ 11/16/2023 FAMILY HISTORY Problem [...] SENSIMIST) 27.5 mcg/actuation nasal spray Use 1 Cypress in each nostril two times a day. [...] NURSING PROGon 02-06-2024 NURSING PROG HNO ID: [id number] Author: BRANDIE HAMM RN Service: Nursing Author [...] Normal [facility] SURGICAL PATHOLOGYon CASE REPORT Normal [facility] Comment on above: Order Comment: Jonnathan jones Type: TISSUE SPECIMEN Ordering Facility: [facility] Address: [address] [place] [address] Result Comment: Surg ica Pathology Report Case: [id number] Authorizing Provider: Patric Boone, Collected: 02/06/2024 01:42 PM Ordering Location: [facility] Received: 02/07/2024 10:53 AM Pathologist: Sarah Child MD Specimens: A) - Stomach, Antrum, Biopsy B) - Esophagogastric Junction, Biopsy Performed By: #### S #### [facility] CLIA [id number] [address] [place] [address] [place] CLINICAL HISTORY Normal [facility] Comment on above: Order Comment: Jonnathan jones Type: TISSUE SPECIMEN Ordering Facility: [facility] Address: [address] [place] [address] Result Comment: Pre- op diagnosis: Gastroesophageal reflux disease, unspecified whether esophagitis present [K21.9] Performed By: #### S #### [facility] CLIA [id number] [address] [place] [address] FINAL DIAGNOSIS Normal [facility] Comment on above: Order Comment: Speci men Type: TISSUE SPECIMEN Ordering Facility: [facility] Address: [address] [place] [address] Result Comment: A. S tomach antrum, biopsy: -- Antral-type gastric mucosa with no significant histopathologic abnormalities. -- No morphologic evidence of H. pylori organisms identified on H&E sections. B. Esophagogastric junction, biopsy: -- Squamous mucosa with no significant histopathologic abnormalities. -- No glandular type mucosa present for evaluation. Performed By: #### S #### [facility] CLIA [id number] [address] [place] [address] FINAL PERFORMING LAB Normal [facility] Comment on above: Order Comment: Speci men Type: TISSUE SPECIMEN Ordering Facility: [facility] Address: [address] [place] [address] Result Comment: Diag nostic interpretation performed at [facility], [address] [place] [address] CLIA# [id number] Computer Programming Manager: Tony Donahue M.D. Performed By: #### S #### [facility] CLIA [id number] [address] [place] [address] GROSS DESCRIPTION Normal [facility] Comment on above: Order Comment: Speci men Type: TISSUE SPECIMEN Ordering Facility: [facility] Address: [address] [place] [address] Result Comment: A. S tomach, Antrum, Biopsy [...] entirely in B1. Gross examination performed at [facility], [address] [place] [address] CLIA#[id number] OLS February 07, 2024 12:14 PM Performed By: #### S #### [facility] CLIA [id number] [address] [place] [address] [facility] Upper GI endoscopyon 02-05-2 024 Upper GI endoscopy Addendum Number: 1 A ddendum Date: 02/18/2024 10:29:20 AM Reason for Exam is GERD MD Patric Byrd MD 02/18/2024 10:30:09 AM This report has been signed electronically by Patric Boone MD [facility] Gastrointestinal Endoscopy Patient Name: Ace Leonardo Procedure Date: 02/06/2024 1:24 PM Date of : 2000 Admit Type: Outpatient Room: [place] [address] Gender: Female Note Status: Addendum Attending MD: Patric Boone MD, [id number] Procedure: Upper GI endoscopy Indications: Suspected gastro-esophageal reflux disease Providers: Patric Boone MD Referring Physician: Patric Boone MD (Referring MD) Medicines: Monitored Anesthesia [...] antiplatelet agents. Procedure Code(s): --- Professional --- 26478, Esophagogastroduodenoscopy, flexible, transoral; with biopsy, single or multiple --- Technical --- 89447, Esophagogastroduodenoscopy, flexible, transoral; with biopsy, single or multiple 67014, TC, Esophagus, gastroesophageal reflux test; with mucosal attached telemetry pH electrode placement, recording, analysis and interpretation CPT copyright 2020 [employer]. All rights reserved. The codes documented in this report are preliminary and upon phosphoric acid supervisor review may be revised to meet current compliance requirements. Attending Participation: I personally performed the entire procedure. Scope In: 1:38:44 PM Scope Out: 1:49:11 PM MD Patric Byrd MD 02/06/2024 2:02:20 PM This report has been signed electronically by Patric Boone MD Number of Addenda: 1 Note Initiated On: 02/06/2024 1:24 PM [facility] CNOVon 01-30-2024 [facility] Office Visit (AGGENS 3) ACE LEONARDO ([id number]) 2 F Date Time Provider Department 01/30/24 9:45 AM PATRIC BOONE AGGENS3 During your visit today, we recorded the following information about you: Pulse Respiration Blood pressure Weight 72/minute 18/minute 131/77 102.5 kg Height 1.575 m Patric Boone MD 01/30/2024 10:57 AM Signed Consultation [...] SURGICAL HISTORY Procedure Laterality Date EGD W/O [facility] SPEC VARICIES INJ 11/16/2023 Social History Tobacco [...] SENSIMIST) 27.5 mcg/actuation nasal spray Use 1 Cypress in each nostril two times a day. [...] 40.0 to 44.9 in adult ([facility]) Plan: ASSESSMENT/PLAN: 1. Gastroesophageal reflux [...] not included)... Normal [facility] ANES POSTPROC EVALon 024 ANES POSTPROC EVAL HNO ID: [id number] Author: MOOSE JENNINGS MD Service: Anesthesiology Author Type: Anesthesiologist Type: Anesthesia Postprocedure Evaluation Filed: 11/16/2023 12:37 Note Text: POST ANESTHESIA EVALUATION NOTE : 2000 Procedure Summary Date: 11/16/23 Room / Location: [facility] Endoscopy Anesthesia Start: 1202 Anesthesia Stop: 1217 Procedure: EGD DIAGNOSTIC Diagnosis: Gastroesophageal reflux disease, unspecified whether esophagitis present (Heartburn) Scheduled Providers: Lauren Guo MD; Tony Zhou APRN.TANK SETTER HELPER; Moose Jennings MD Responsible Provider: Moose Jennings MD Anesthesia Type: MAC ASA Status: [...] of care. Anesthesia Observations No Documentation SIGNATURE: Moose Jennings MD PATIENT NAME: Ace Leonardo DATE: November 16, 2023 TIME: 12:37 PM CSN: [id number] Normal [facility] ANES PRE-OPon 11-16-2023 ANES PRE-OP HNO ID: [id number] Author: MOOSE JENNINGS MD Service: Anesthesiology Author Type: Anesthesiologist Type: Anesthesia Preprocedure Evaluation Filed: 11/16/2023 11:32 Note Text: ANESTHESIOLOGY DAY OF SURGERY NOTE : 2000 Procedure Information Date/Time: 11/16/23 1415 Scheduled providers: Lauren Guo MD; Tony Zhou APRN.TANK SETTER HELPER; Moose Jennings MD Procedure: EGD DIAGNOSTIC Location: [facility] Endoscopy Estimated body mass index [...] and consent discussed: yes. Patient / Responsible Republican agrees to proceed: yes Patient / Surrogate [...] SENSIMIST) 27.5 mcg/actuation nasal spray Use 1 Cypress in each nostril two times a day. [...] obtained within 48 hours of Surgery/Procedure. SIGNATURE: Moose Jennings MD PATIENT NAME: Ace Leonardo DATE: November 16, 2023 TIME: 11:31 AM CSN: [id number] Normal [facility] EGD Study observation Brock harris 11-16-2023 [facility] Gastrointestinal Endoscopy Patient Name: Ace Leonardo Procedure Date: 11/16/2023 11:54 AM Date of : 2000 Admit Type: Outpatient Age: 23 Room: [facility] Gender: Female Note Status: Finalized Attending MD: Lauren Guo MD, [id number] Procedure: Upper GI endoscopy Indications: Heartburn, Gastro-esophageal reflux disease Providers: Lauren Guo MD Patient Profile: This is a 23 year old female. Refer to note in patient chart for documentation of history and physical. Referring Physician: Monse Chapin (Referring ) Medicines: See the Anesthesia note for documentation [...] be scheduled. Procedure Code(s): --- Professional --- 15112, Esophagogastroduodenoscopy, flexible, transoral; with biopsy, single or multiple Diagnosis Code(s): --- Professional --- R12, Heartburn K21.9, Gastro-esophageal reflux disease without esophagitis CPT copyright 2020 [employer]. All rights reserved. The codes documented in this report are preliminary and upon phosphoric acid supervisor review may be revised to meet current compliance requirements. Attending Participation: I personally performed the entire procedure. Scope In: 12:10:16 PM Scope Out: 12:14:16 PM MD Lauren Tyler MD 11/16/2023 12:17:28 PM This report has been signed electronically by Da (more content not included)... PROVATION [facility] Radiology Study observation (narrative) [facility] HISTORY PHYSICALon HISTORY PHYSICAL HNO ID: [id number] Author: LAUREN GUO MD Service: General Surgery Author Type: [...] and 20mg with dinner with minimal relief. cAe refers that she does not eat spicy foods and drinks plenty of water throughout the day d/t her hot work environment and history of POTS. Ace refers family history- Paternal grandfather had esophageal cancer and the majority of her father's side relatives suffer from reflux. Ace had a gastric emptying study done at [facility] on May that was normal. Patient [...] SENSIMIST) 27.5 mcg/actuation nasal spray Use 1 Cypress in each nostril two times a day. [...] entered by the nurse and reviewed by in Nursing Notes: Shefali Richter LPN 09/21/2023 8:37 AM Signed REVIEW [...] a history (more content not included)... Normal [facility] SURGICAL PATHOLOGYon 024 CASE REPORT Normal [facility] Comment on above: Order Comment: Speci men Type: TISSUE SPECIMENOrdering Facility: [facility] Address: [address] [place] [address] Result Comment: Surg [facility] Pathology Report Case: [id number] Authorizing Provider: Lauren Guo MD Collected: 11/16/2023 12:11 PM Ordering Location: [facility] Endoscopy Received: 11/16/2023 01:53 PM Pathologist: Gabe Pastrana MD Specimens: A) - Small Bowel, Duodenum, Biopsy B) - Stomach, Antrum, Biopsy C) - Esophagus, Distal, Biopsy D) - Esophagus, Mid, Biopsy Performed By: #### S ####[facility] LABCLIA [id number] [address] OF [place] DIAGNOSIS COMMENT C, D. No increase in intraepithelial eosinophils identified. [facility] Comment on above: Order Comment: Speci men Type: TISSUE SPECIMENOrdering Facility: [facility] Address: [address] [place] [address] Performed By: #### S ####[facility] LABCLIA [id number] [address] OF [place] FINAL DIAGNOSIS [facility] Comment on above: Order Comment: Speci men Type: TISSUE SPECIMENOrdering Facility: [facility] Address: [address] [place] [address] Result Comment: A. S mall bowel, duodenum, biopsy: - Duodenal mucosa within normal limits. B. Stomach, antrum, biopsy: - Antral mucosa within normal limits. - No morphologic evidence of Helicobacter. C. Esophagus, distal, biopsy: - Squamous mucosa with mild reactive changes. D. Esophagus, mid, biopsy: - Squamous mucosa within normal limits. PB/kr 11/22/2023 Performed By: #### S ####[facility] LABCLIA [id number] [address] FINAL PERFORMING LAB [facility] Comment on above: Order Comment: Speci men Type: TISSUE SPECIMENOrdering Facility: [facility] Address: [address] [place] [address] Result Comment: Diag nostic interpretation performed at [facility], [address] [place] [address] CLIA# [id number] Computer Programming Manager: Mario Glez M.D. Performed By: #### S ####[facility] LABCLIA [id number] [address] [place] GROSS DESCRIPTION [facility] Comment on above: Order Comment: Speci men Type: TISSUE SPECIMENOrdering Facility: [facility] Address: [address] [place] [address] Result Comment: A. S mall Bowel, Duodenum, [...] 2023 8:07 PM [place] [address] Performed By: #### S ####[facility] LABCLIA [id number] [facility] OF [facility] Upper GI endoscopy 024 Upper GI endoscopy [facility] Gastrointestinal Endoscopy Patient Name: Ace Leonardo Procedure Date: 11/16/2023 11:54 AM Date of : 2000 Admit Type: Outpatient Age: 23 Room: [facility] Gender: Female Note Status: Finalized Attending MD: Lauren Guo MD, [id number] Procedure: Upper GI endoscopy Indications: Heartburn, Gastro-esophageal reflux disease Providers: Lauren Guo MD Patient Profile: This is a [...] be scheduled. Procedure Code(s): --- Professional --- 86746, Esophagogastroduodenoscopy, flexible, transoral; with biopsy, single or multiple Diagnosis Code(s): --- Professional --- R12, Heartburn K21.9, Gastro-esophageal reflux disease without esophagitis CPT copyright 2020 [employer]. All rights reserved. The codes documented in this report are preliminary and upon phosphoric acid supervisor review may be revised to meet current compliance requirements. Attending Participation: I personally performed the entire procedure. Scope In: 12:10:16 PM Scope Out: 12:14:16 PM MD Lauren Tyler MD 11/16/2023 12:17:28 PM This report has been signed electronically by Lauren Guo MD Number of Addenda: 0 Note Initiated On: 11/16/2023 11:54 AM Estimated Blood Loss: Estimated blood loss was minimal. Normal [facility] C-REACTIVE PROTEINon 024 CRP [Mass/Vol] 1.2 mg/dL High NINF - 0.9 mg/dL [facility] CRP [Mass/Vol]on 09-05-2023 Interpretation and review of laboratory results Abnormal [facility] ESR Westergren method (Bld) [Velocity]on 09-05-2023 ESR (Bld) [Velocity] 5 mm/h [facility] Interpretation and review of laboratory results Normal [facility] ALLERGEN SKIN TEST-INHALANT 40on 08-31-2023 INHALANT 40 [...] 0 mm F = 0 mm Beech, U[place]bek 1:20 P: W = 0 mm F = 0 mm Birch Mix 1:20 P: W = 0 mm F = 0 mm Maple Mix 1:20 P: W = 0 mm F = 0 mm Clar[place] ,Eastern 1:20 P: W = 0 mm F = 0 mm Saline, Shagbark 1:20 P: W = 0 mm F = 0 mm Bell[place] Tree, Red 1:20 P: W = 0 mm F = 0 mm [place], Black 1:20 P: W = 0 mm F = 0 mm [place], Uzbek/Eastern 1:20 P: W = 0 mm F = 0 mm [place] Pollen, Black 1:20 P: W = 0 mm F = 0 mm Willet, Black 1:20 P: W = 0 mm F = 0 mm B[place] Grass 10,000 BAU/ml P : W = 0 mm F = 0 mm [place], /September 100,000 BAU/ml P: W = 0 mm F = 0 mm F[place], [place] 100,000 BAU/ml P: W = 0 mm F = 0 mm [place] Grass 1:20 P: W = 0 mm F = 0 mm Orchard Grass 100,000 BAU/ml P: W = 0 mm F = 0 mm Perennial [place], 100,000 BAU/ml P: W = 0 mm F = 0 mm Earl 100,000 BAU/ml P: W = 0 mm F = 0 mm Cock[place] 1:20 P: W = 0 mm F = 0 mm [place], sheep 1:20 P: W = 0 mm F = 0 mm Plantain, Eritrean 1:20 P: W = 0 mm F [...] = 7 mm F = 12 mm [facility] Laboratory - Chemistry and C hemistry - challengeOrdered By: Denise Tirado on 05-24-2023 Cobalamin (Vitamin B12) [Mass/Vol] 173 pg/mL 211-911 [facility] No Panel InformationOrdered By: Denise Tirado on 05-24-2023 Anti-Gliadin IgA Antibody 6 units 0-19 [facility] Comment on above: Negative 0 - 19 Weak Positive 20 - 30 Moderate to Strong Positive >30 Anti-Gliadin IgG Antibody 4 units 0-19 [facility] Comment on above: Negative 0 - 19 Weak Positive 20 - 30 Moderate to Strong Positive >30 Endomysial IgA Antibody Negative Negative [facility] Immunoglobulin A 191 mg/dL 87-352 [facility] Comment on above: Performed at: [place] [id number] Director: Rodney Jonas PhD, Phone: [phone] Tissue Transglutaminase IgG Ab 3 U/mL 0-5 [facility] Comment on above: Negative 0 - 5 Weak Positive 6 - 9 Positive >9 No Panel InformationOrdered By: Estephania Samuels on 05-24-2023 Free Triiodothyronine (T3) pg/dL 2.5 pg/mL 2.18-3.98 [facility] Serum or plasma thyroid stim ulating hormone (TSH) measurement (units/volume)Ordered By: Estephania Samuels on 05-24-2023 TSH Qn 2.64 uIU/mL 0.358-3.74 [facility] Serum tissue transglutaminas e IgA antibody assay (units/volume)Ordered By: Denise Tirado on 05-24-2023 tTG IgA Qn (S) <2 U/mL 0-3 [facility] Comment on above: Negative 0 - 3 Weak Positive 4 - 10 Positive >10 Tissue Transglutaminase (tTG) has been identified as the endomysial antigen. Studies have demonstr- ated that endomysial IgA antibodies have over 99% specificity for gluten sensitive enteropathy. Thin prep Papanicolaou smear with manual screeningOrdered By: Estephania Samuels on 05-24-2023 Thin prep Papanicolaou smear with manual screening 0.86 ng/dL 0.76-1.46 [facility] NM GASTRIC EMPTYING SOLIDon 05-18-2023 [facility] Absolute lymphocyte countOrd ered By: Xavier Maloney on 11-14-2022 Lymphocytes Auto (Unsp spec) [#/Vol] 2.32 10*3/uL 0.83-4.51 [facility] Basophil percentageOrdered B y: Xavier Maloney on 11-14-2022 Basophils/100 WBC (Bld) 0.7 % 0-1 [facility] Chloride [Moles/Vol] 106 mmol/L 98-107 [facility] Eosinophils/100 WBC (Bld) 0.7 % 0-5 [facility] Glucose [Mass/Vol] 90 mg/dL 74-106 [facility] Neutrophils (Bld) [#/Vol] 4.0 10*3/uL 2.0-7.7 [facility] Neutrophils/100 WBC (Bld) 56.2 % 47-70 [facility] Potassium [Moles/Vol] 3.8 mmol/L 3.5-5.1 [facility] Sodium [Moles/Vol] 139 mmol/L 136-145 [facility] WBC (Bld) [#/Vol] 7.1 10*3/uL 4.4-11.0 [facility] Blood erythrocytes count (nu mber/volume)Ordered By: Xavier Maloney on 11-14-2022 RBC (Bld) [#/Vol] 4.43 10*6/uL 4.2-5.4 [facility] Blood hemoglobin measurement (mass/volume)Ordered By: Xavier Maloney on 11-14-2022 Hemoglobin (Bld) [Mass/Vol] 12.5 g/dL 12.0-15.0 [facility] Blood lymphocytes/100 leukoc ytesOrdered By: Xavier Maloney on 11-14-2022 Lymphocytes/100 WBC (Bld) 32.6 % 19-41 [facility] Blood monocytes/100 leukocyt esOrdered By: Xavier Maloney on 11-14-2022 Monocytes/100 WBC (Bld) 9.7 % 0-10 [facility] Blood platelet mean volumeOr dered By: Xavier Maloney on 11-14-2022 Platelet mean volume (Bld) [Entitic vol] 10.0 fL 6.2-12.0 [facility] Determination of erythrocyte mean corpuscular volume (MCV)Ordered By: Xavier Maloney on 11-14-2022 MCV (RBC) [Entitic vol] 88.3 fL 81-99 [facility] Hematocrit Auto (Bld) [Volum e fraction]Ordered By: Xavier Maloney on 11-14-2022 Hematocrit (Bld) [Volume fraction] 39.1 % 37-47 [facility] Laboratory - Chemistry and C hemistry - challengeOrdered By: Xavier Maloney on 11-14-2022 CO2 [Moles/Vol] 27.0 mmol/L 21.0-32.0 [facility] Urea nitrogen/Creatinine [Mass ratio] 11.2 mg/mg 10-20 [facility] Laboratory - Hematology and Cell countsOrdered By: Xavier Maloney on 11-14-2022 Erythrocyte distribution width (RBC) [Entitic vol] 42.5 fL 35.1-43.9 [facility] Erythrocyte distribution width (RBC) [Ratio] 13.0 % 11.6-14.6 [facility] Immature granulocytes/100 WBC (Bld) 0.100 % 0.0-0.9 [facility] Comment on above: IG% - Immature Granu locytes (promyelocytes, myelocytes and metamyelocytes) > 1% indicates that a LEFT SHIFT is Present. MCH (RBC) [Entitic mass] 28.2 pg 27.0-32.0 [facility] Nucleated RBC/100 WBC (Bld) [Ratio] 0 % 0-5 [facility] MCHC Auto (RBC) [Mass/Vol]Or dered By: Xavier Maloney on 11-14-2022 MCHC (RBC) [Mass/Vol] 32.0 g/dL 32-36 [facility] No Panel InformationOrdered By: Xavier Maloney on 11-14-2022 Estimated Creatinine Clearance Calc 79.08 ml/min [facility] Estimated GFR (MDRD) Amer 103 mL/min >60 [facility] Comment on above: GFR Calc Estimated GFR (MDRD) Non-Af Amer 85 mL/min >60 [facility] Comment on above: Non- GFR Calc Troponin I High Sensitivity 3 pg/mL 3.0-54.0 [facility] Comment on above: Please Note: New Diana t Units and Gender Specific Reference Ranges. For more information see Policy Stat Procedure [place] High Sensitivity Troponin (TNIH) and attachments. Platelets bldOrdered By: Barry Maloney on 11-14-2022 Platelets (Bld) [#/Vol] 357 10*3/uL 150-450 [facility] Serum or plasma calcium altagracia urement (mass/volume)Ordered By: Xavier Maloney on 11-14-2022 Calcium [Mass/Vol] 8.7 mg/dL 8.5-10.1 [facility] Serum or plasma creatinine m easurement (mass/volume)Ordered By: Xavier Maloney on 11-14-2022 Creatinine [Mass/Vol] 0.89 mg/dL 0.55-1.02 [facility] Comment on above: The validity of the calculated GFR & GFRAA in patients over 70 years has not been determined. Clinical correlation is essential. Serum or plasma urea nitroge n measurement (mass/volume)Ordered By: Xavier Maloney on 11-14-2022 Urea nitrogen [Mass/Vol] 10 mg/dL 7-18 [facility] Thin prep Papanicolaou smear with manual screeningOrdered By: Xavier Maloney on 11-14-2022 Thin prep Papanicolaou smear with manual screening 6 5-15 [facility] Absolute lymphocyte countOrd ered By: Espinoza Montero on 10-21-2022 Lymphocytes Auto (Unsp spec) [#/Vol] 2.59 10*3/uL 0.83-4.51 [facility] Basophil percentageOrdered B y: Espinoza Montero on 10-21-2022 Basophils/100 WBC (Bld) 0.6 % 0-1 [facility] Bilirubin [Mass/Vol] 0.30 mg/dL 0.20-1.00 [facility] Comment on above: For patients on eltr ombopag therapy, use of Dimension [place] TBIL is not recommended. Chloride [Moles/Vol] 105 mmol/L 98-107 [facility] Eosinophils/100 WBC (Bld) 0.7 % 0-5 [facility] Glucose [Mass/Vol] 89 mg/dL 74-106 [facility] Neutrophils (Bld) [#/Vol] 4.7 10*3/uL 2.0-7.7 [facility] Neutrophils/100 WBC (Bld) 58.2 % 47-70 [facility] Potassium [Moles/Vol] 3.7 mmol/L 3.5-5.1 [facility] Protein [Mass/Vol] 7.0 g/dL 6.4-8.2 [facility] Sodium [Moles/Vol] 138 mmol/L 136-145 [facility] WBC (Bld) [#/Vol] 8.1 10*3/uL 4.4-11.0 [facility] Blood erythrocytes count (nu mber/volume)Ordered By: Espinoza Montero on 10-21-2022 RBC (Bld) [#/Vol] 4.40 10*6/uL 4.2-5.4 [facility] Blood hemoglobin measurement (mass/volume)Ordered By: Espionza Montero on 10-21-2022 Hemoglobin (Bld) [Mass/Vol] 12.6 g/dL 12.0-15.0 [facility] Blood lymphocytes/100 leukoc ytesOrdered By: Espinoza Montero on 10-21-2022 Lymphocytes/100 WBC (Bld) 32.1 % 19-41 [facility] Blood monocytes/100 leukocyt esOrdered By: Espinoza Montero on 10-21-2022 Monocytes/100 WBC (Bld) 7.4 % 0-10 [facility] Blood platelet mean volumeOr dered By: Espinoza Montero on 10-21-2022 Platelet mean volume (Bld) [Entitic vol] 10.2 fL 6.2-12.0 [facility] Determination of erythrocyte mean corpuscular volume (MCV)Ordered By: Espinoza Montero on 10-21-2022 MCV (RBC) [Entitic vol] 87.5 fL 81-99 [facility] Hematocrit Auto (Bld) [Volum e fraction]Ordered By: Espinoza Montero on 10-21-2022 Hematocrit (Bld) [Volume fraction] 38.5 % 37-47 [facility] Laboratory - Chemistry and C hemistry - challengeOrdered By: Espinoza Montero on 10-21-2022 ALP [Catalytic activity/Vol] 63 U/L 45-117 [facility] ALT [Catalytic activity/Vol] 19 U/L 13-56 [facility] CO2 [Moles/Vol] 27.0 mmol/L 21.0-32.0 [facility] Globulin (S) [Mass/Vol] 3.7 g/dL 2.2-4.2 [facility] Urea nitrogen/Creatinine [Mass ratio] 13.6 mg/mg 10-20 [facility] Laboratory - Hematology and Cell countsOrdered By: Espinoza Montero on 10-21-2022 Erythrocyte distribution width (RBC) [Entitic vol] 42.5 fL 35.1-43.9 [facility] Erythrocyte distribution width (RBC) [Ratio] 13.2 % 11.6-14.6 [facility] Immature granulocytes/100 WBC (Bld) 1.000 % 0.0-0.9 [facility] Comment on above: IG% - Immature Granu locytes (promyelocytes, myelocytes and metamyelocytes) > 1% indicates that a LEFT SHIFT is Present. MCH (RBC) [Entitic mass] 28.6 pg 27.0-32.0 [facility] Nucleated RBC/100 WBC (Bld) [Ratio] 0 % 0-5 [facility] MCHC Auto (RBC) [Mass/Vol]Or dered By: Espinoza Montero on 10-21-2022 MCHC (RBC) [Mass/Vol] 32.7 g/dL 32-36 [facility] No Panel InformationOrdered By: Espinoza Montero on 10-21-2022 Estimated Creatinine Clearance Calc 79.98 ml/min [facility] Estimated GFR (MDRD) Amer 104 mL/min >60 [facility] Comment on above: GFR Calc Estimated GFR (MDRD) Non-Af Amer 86 mL/min >60 [facility] Comment on above: Non- GFR Calc Troponin I High Sensitivity < 3 pg/mL 3.0-54.0 [facility] Comment on above: Please Note: New Diana t Units and Gender Specific Reference Ranges. For more information see Policy Stat Procedure [place] High Sensitivity Troponin (TNIH) and attachments. Platelets bldOrdered By: Jennifer Montero on 10-21-2022 Platelets (Bld) [#/Vol] 332 10*3/uL 150-450 [facility] Serum or plasma albumin altagracia urement (mass/volume)Ordered By: Espinoza Montero on 10-21-2022 Albumin [Mass/Vol] 3.3 g/dL 3.2-5.0 [facility] Serum or plasma albumin/glob ulin mass ratioOrdered By: Espinoza Montero on 10-21-2022 Albumin/Globulin [Mass ratio] 0.9 {ratio} 0.9-2.4 [facility] Serum or plasma calcium altagracia urement (mass/volume)Ordered By: Espinoza Montero on 10-21-2022 Calcium [Mass/Vol] 8.5 mg/dL 8.5-10.1 [facility] Serum or plasma creatinine m easurement (mass/volume)Ordered By: Espinoza Montero on 10-21-2022 Creatinine [Mass/Vol] 0.88 mg/dL 0.55-1.02 [facility] Comment on above: The validity of the calculated GFR & GFRAA in patients over 70 years has not been determined. Clinical correlation is essential. Serum or plasma urea nitroge n measurement (mass/volume)Ordered By: Espinoza Montero on 10-21-2022 Urea nitrogen [Mass/Vol] 12 mg/dL 7-18 [facility] Thin prep Papanicolaou smear with manual screeningOrdered By: Espinoza Montero on 10-21-2022 Thin prep Papanicolaou smear with manual screening 16 U/L 15-37 [facility] Thin prep Papanicolaou smear with manual screening 6 5-15 [facility] Absolute lymphocyte countOrd ered By: Moreno Craig on 09-06-2022 Lymphocytes Auto (Unsp spec) [#/Vol] 2.07 10*3/uL 0.83-4.51 [facility] Basophil percentageOrdered B y: Moreno Craig on 09-06-2022 Basophils/100 WBC (Bld) 0.6 % 0-1 [facility] Bilirubin [Mass/Vol] 0.40 mg/dL 0.20-1.00 [facility] Comment on above: For patients on eltr ombopag therapy, use of Dimension [place] TBIL is not recommended. Chloride [Moles/Vol] 106 mmol/L 98-107 [facility] Eosinophils/100 WBC (Bld) 0.6 % 0-5 [facility] Glucose [Mass/Vol] 95 mg/dL 74-106 [facility] Neutrophils (Bld) [#/Vol] 4.3 10*3/uL 2.0-7.7 [facility] Neutrophils/100 WBC (Bld) 61.4 % 47-70 [facility] Potassium [Moles/Vol] 3.8 mmol/L 3.5-5.1 [facility] Protein [Mass/Vol] 7.1 g/dL 6.4-8.2 [facility] Sodium [Moles/Vol] 139 mmol/L 136-145 [facility] WBC (Bld) [#/Vol] 7.0 10*3/uL 4.4-11.0 [facility] Blood erythrocytes count (nu mber/volume)Ordered By: Moreno Craig on 09-06-2022 RBC (Bld) [#/Vol] 4.70 10*6/uL 4.2-5.4 [facility] Blood hemoglobin measurement (mass/volume)Ordered By: Moreno Craig on 09-06-2022 Hemoglobin (Bld) [Mass/Vol] 13.1 g/dL 12.0-15.0 [facility] Blood lymphocytes/100 leukoc ytesOrdered By: Moreno Craig on 09-06-2022 Lymphocytes/100 WBC (Bld) 29.5 % 19-41 [facility] Blood monocytes/100 leukocyt esOrdered By: Moreno Craig on 09-06-2022 Monocytes/100 WBC (Bld) 7.3 % 0-10 [facility] Blood platelet mean volumeOr dered By: oMreno Craig on 09-06-2022 Platelet mean volume (Bld) [Entitic vol] 9.5 fL 6.2-12.0 [facility] Determination of erythrocyte mean corpuscular volume (MCV)Ordered By: Moreno Craig on 09-06-2022 MCV (RBC) [Entitic vol] 86.6 fL 81-99 [facility] Hematocrit Auto (Bld) [Volum e fraction]Ordered By: Moreno Craig on 09-06-2022 Hematocrit (Bld) [Volume fraction] 40.7 % 37-47 [facility] Laboratory - Chemistry and C hemistry - challengeOrdered By: Moreno Craig on 09-06-2022 ALP [Catalytic activity/Vol] 71 U/L 45-117 [facility] ALT [Catalytic activity/Vol] 22 U/L 13-56 [facility] CO2 [Moles/Vol] 27.0 mmol/L 21.0-32.0 [facility] Globulin (S) [Mass/Vol] 3.7 g/dL 2.2-4.2 [facility] Lipase [Catalytic activity/Vol] 15 U/L 13-75 [facility] Comment on above: Please note:LIPASE r evised reference range effective 22. New Lipase methodology. Expected to produce lower values than the previous assay method. NEW Reference Range: 13 - 75 U/L Urea nitrogen/Creatinine [Mass ratio] 10.5 mg/mg 10-20 [facility] Laboratory - Hematology and Cell countsOrdered By: Moreno Craig on 09-06-2022 Erythrocyte distribution width (RBC) [Entitic vol] 40.6 fL 35.1-43.9 [facility] Erythrocyte distribution width (RBC) [Ratio] 12.7 % 11.6-14.6 [facility] Immature granulocytes/100 WBC (Bld) 0.600 % 0.0-0.9 [facility] Comment on above: IG% - Immature Granu locytes (promyelocytes, myelocytes and metamyelocytes) > 1% indicates that a LEFT SHIFT is Present. MCH (RBC) [Entitic mass] 27.9 pg 27.0-32.0 [facility] Nucleated RBC/100 WBC (Bld) [Ratio] 0 % 0-5 [facility] MCHC Auto (RBC) [Mass/Vol]Or dered By: Moreno Craig on 09-06-2022 MCHC (RBC) [Mass/Vol] 32.2 g/dL 32-36 [facility] No Panel InformationOrdered By: Moreno Craig on 09-06-2022 Estimated Creatinine Clearance Calc 82.53 ml/min [facility] Estimated GFR (MDRD) Amer 108 mL/min >60 [facility] Comment on above: GFR Calc Estimated GFR (MDRD) Non-Af Amer 89 mL/min >60 [facility] Comment on above: Non- GFR Calc Platelets bldOrdered By: Lenny Craig on 09-06-2022 Platelets (Bld) [#/Vol] 348 10*3/uL 150-450 [facility] Serum or plasma albumin altagracia urement (mass/volume)Ordered By: Moreno Craig on 09-06-2022 Albumin [Mass/Vol] 3.4 g/dL 3.2-5.0 [facility] Serum or plasma albumin/glob ulin mass ratioOrdered By: Moreno Craig on 09-06-2022 Albumin/Globulin [Mass ratio] 0.9 {ratio} 0.9-2.4 [facility] Serum or plasma calcium altagracia urement (mass/volume)Ordered By: Moreno Craig on 09-06-2022 Calcium [Mass/Vol] 8.6 mg/dL 8.5-10.1 [facility] Serum or plasma creatinine m easurement (mass/volume)Ordered By: Moreno Craig on 09-06-2022 Creatinine [Mass/Vol] 0.86 mg/dL 0.55-1.02 [facility] Comment on above: The validity of the calculated GFR & GFRAA in patients over 70 years has not been determined. Clinical correlation is essential. Serum or plasma urea nitroge n measurement (mass/volume)Ordered By: Moreno Craig on 09-06-2022 Urea nitrogen [Mass/Vol] 9 mg/dL 7-18 [facility] Thin prep Papanicolaou smear with manual screeningOrdered By: Moreno Craig on 09-06-2022 Thin prep Papanicolaou smear with manual screening 18 U/L 15-37 [facility] Thin prep Papanicolaou smear with manual screening 6 5-15 [facility] Beta hCG serum qualOrdered B y: Dr. Vargas on 06-20-2022 Beta HCG ( test) Ql Negative [facility] Absolute lymphocyte countOrd ered By: Dr. Vargas on 05-11-2022 Lymphocytes Auto (Unsp spec) [#/Vol] 2.11 10*3/uL 0.83-4.51 [facility] Basophil percentageOrdered B y: Dr. Vargas on 05-11-2022 Basophils/100 WBC (Bld) 0.6 % 0-1 [facility] Chloride [Moles/Vol] 105 mmol/L 98-107 [facility] Eosinophils/100 WBC (Bld) 0.8 % 0-5 [facility] Glucose [Mass/Vol] 93 mg/dL 74-106 [facility] Neutrophils (Bld) [#/Vol] 3.9 10*3/uL 2.0-7.7 [facility] Neutrophils/100 WBC (Bld) 58.4 % 47-70 [facility] Potassium [Moles/Vol] 3.9 mmol/L 3.5-5.1 [facility] Sodium [Moles/Vol] 140 mmol/L 136-145 [facility] WBC (Bld) [#/Vol] 6.6 10*3/uL 4.4-11.0 [facility] Beta hCG serum qualOrdered B y: Dr. Vargas on 05-11-2022 Beta HCG ( test) Ql Negative [facility] Blood erythrocytes count (nu mber/volume)Ordered By: Dr. Vargas on 05-11-2022 RBC (Bld) [#/Vol] 4.75 10*6/uL 4.2-5.4 [facility] Blood hemoglobin measurement (mass/volume)Ordered By: Dr. Vargas on 05-11-2022 Hemoglobin (Bld) [Mass/Vol] 13.0 g/dL 12.0-15.0 [facility] Blood lymphocytes/100 leukoc ytesOrdered By: Dr. Vargas on 05-11-2022 Lymphocytes/100 WBC (Bld) 32.0 % 19-41 [facility] Blood monocytes/100 leukocyt esOrdered By: Dr. Vargas on 05-11-2022 Monocytes/100 WBC (Bld) 7.9 % 0-10 [facility] Blood platelet mean volumeOr dered By: Dr. Vargas on 05-11-2022 Platelet mean volume (Bld) [Entitic vol] 10.2 fL 6.2-12.0 [facility] Determination of erythrocyte mean corpuscular volume (MCV)Ordered By: Dr. Vargas on 05-11-2022 MCV (RBC) [Entitic vol] 87.6 fL 81-99 [facility] Hematocrit Auto (Bld) [Volum e fraction]Ordered By: Dr. Vargas on 05-11-2022 Hematocrit (Bld) [Volume fraction] 41.6 % 37-47 [facility] Laboratory - Chemistry and C hemistry - challengeOrdered By: Dr. Vargas on 05-11-2022 CO2 [Moles/Vol] 27.0 mmol/L 21.0-32.0 [facility] Urea nitrogen/Creatinine [Mass ratio] 10.0 mg/mg 10-20 [facility] Laboratory - Hematology and Cell countsOrdered By: Dr. Vargas on 05-11-2022 Erythrocyte distribution width (RBC) [Entitic vol] 42.9 fL 35.1-43.9 [facility] Erythrocyte distribution width (RBC) [Ratio] 13.2 % 11.6-14.6 [facility] Immature granulocytes/100 WBC (Bld) 0.300 % 0.0-0.9 [facility] Comment on above: IG% - Immature Granu locytes (promyelocytes, myelocytes and metamyelocytes) > 1% indicates that a LEFT SHIFT is Present. MCH (RBC) [Entitic mass] 27.4 pg 27.0-32.0 [facility] Nucleated RBC/100 WBC (Bld) [Ratio] 0 % 0-5 [facility] MCHC Auto (RBC) [Mass/Vol]Or dered By: Dr. Vargas on 05-11-2022 MCHC (RBC) [Mass/Vol] 31.3 g/dL 32-36 [facility] No Panel InformationOrdered By: Dr. Vargas on 05-11-2022 Estimated GFR (MDRD) Amer 117 mL/min >60 [facility] Comment on above: GFR Calc Estimated GFR (MDRD) Non-Af Amer 97 mL/min >60 [facility] Comment on above: Non- GFR Calc Platelets bldOrdered By: Dr. Vargas on 05-11-2022 Platelets (Bld) [#/Vol] 340 10*3/uL 150-450 [facility] Serum or plasma calcium altagracia urement (mass/volume)Ordered By: Dr. Vargas on 05-11-2022 Calcium [Mass/Vol] 9.1 mg/dL 8.5-10.1 [facility] Serum or plasma creatinine m easurement (mass/volume)Ordered By: Dr. Vargas on 05-11-2022 Creatinine [Mass/Vol] 0.80 mg/dL 0.55-1.02 [facility] Comment on above: The validity of the calculated GFR & GFRAA in patients over 70 years has not been determined. Clinical correlation is essential. Serum or plasma urea nitroge n measurement (mass/volume)Ordered By: Dr. Vargas on 05-11-2022 Urea nitrogen [Mass/Vol] 8 mg/dL 7-18 [facility] Thin prep Papanicolaou smear with manual screeningOrdered By: Dr. Vargas on 05-11-2022 Thin prep Papanicolaou smear with manual screening 8 5-15 [facility] Vital Signs Date Time Vital Sign Value Performing Clinician Facility 12-24-2024 11:20-0400 Body mass index (BMI) [Ratio] 41.37 kg/m2 Hemalatha REYES-Maik Work Phone: [facility] 12-24-2024 11:20-0400 Body weight 102.6 kg Hemalatha Anthony PA-C Work Phone: [facility] 12-24-2024 11:20-0400 Respiratory rate 16 /min Hemalatha REYES-C Work Phone: [facility] 12-24-2024 11:20-0400 SaO2% (BldA) [Mass fraction] 98 % Hemalatha REYES-C Work Phone: [facility] 12-23-2024 12:31-0400 Body mass index (BMI) [Ratio] 41.29 kg/m2 Pilar Hart APRN.GRADE RECORDER Work Phone: [facility] 12-23-2024 12:31-0400 Body temperature 98.2 [degF] Pilar Hart APRN.GRADE RECORDER Work Phone: [facility] 12-23-2024 12:31-0400 Body weight 102.4 kg Pilar Hart APRN.GRADE RECORDER Work Phone: [facility] 12-23-2024 12:31-0400 Diastolic blood pressure 68 mm[Hg] Pilar Hart MATTRESS MAKER.GRADE RECORDER Work Phone: [facility] 12-23-2024 12:31-0400 Heart rate 98 /min Pilar Hart MATTRESS MAKER.GRADE RECORDER Work Phone: [facility] 12-23-2024 12:31-0400 Respiratory rate 16 /min Pilar Hart MATTRESS MAKER.GRADE RECORDER Work Phone: [facility] 12-23-2024 12:31-0400 SaO2% (BldA) [Mass fraction] 97 % Pilar Hart MATTRESS MAKER.GRADE RECORDER Work Phone: [facility] 12-23-2024 12:31-0400 Systolic blood pressure 118 mm[Hg] Pilar Hart MATTRESS MAKER.GRADE RECORDER Work Phone: [facility] 12-18-2024 10:30-0400 Body temperature 97 [degF] Monse Oseas MATTRESS MAKER.GRADE RECORDER Work Phone: [facility] 12-18-2024 10:30-0400 Heart rate 79 /min Monse Oseas MATTRESS MAKER.GRADE RECORDER Work Phone: [facility] 12-18-2024 10:30-0400 SaO2% (BldA) [Mass fraction] 100 % Monse Oseas MATTRESS MAKER.GRADE RECORDER Work Phone: [facility] 12-12-2024 09:55-0400 Body mass index (BMI) [Ratio] 41.12 kg/m2 Monse Oesas MATTRESS MAKER.GRADE RECORDER Work Phone: [facility] 12-12-2024 09:55-0400 Body weight 101.97 kg Monse Oseas MATTRESS MAKER.GRADE RECORDER Work Phone: [facility] 12-12-2024 09:55-0400 Diastolic blood pressure 83 mm[Hg] Monse Oseas MATTRESS MAKER.GRADE RECORDER Work Phone: [facility] 12-12-2024 09:55-0400 Heart rate 84 /min Monse Oseas MATTRESS MAKER.GRADE RECORDER Work Phone: [facility] 12-12-2024 09:55-0400 Respiratory rate 14 /min Monse Busbyir MATTRESS MAKER.GRADE RECORDER Work Phone: [facility] 12-12-2024 09:55-0400 SaO2% (BldA) [Mass fraction] 99 % Monse Busbyir MATTRESS MAKER.GRADE RECORDER Work Phone: [facility] 12-12-2024 09:55-0400 Systolic blood pressure 118 mm[Hg] Monse Busbyir MATTRESS MAKER.GRADE RECORDER Work Phone: [facility] 10-22-2024 14:26-0400 Body height 157.5 cm Phillip Ferreira MD Work Phone: [facility] 10-22-2024 14:26-0400 Body mass index (BMI) [Ratio] 42.07 kg/m2 Phillip Ferreira MD Work Phone: [facility] 10-22-2024 14:26-0400 Body temperature 98.4 [degF] Phillip Ferreira MD Work Phone: [facility] 10-22-2024 14:26-0400 Body weight 104.33 kg Phillip Ferreira MD Work Phone: [facility] 10-22-2024 14:26-0400 Diastolic blood pressure 78 mm[Hg] Phillip Ferreira MD Work Phone: [facility] 10-22-2024 14:26-0400 Heart rate 106 /min Phillip Ferreira MD Work Phone: [facility] 10-22-2024 14:26-0400 Respiratory rate 12 /min Phillip Ferreira MD Work Phone: [facility] 10-22-2024 14:26-0400 SaO2% (BldA) [Mass fraction] 97 % Phillip Ferreira MD Work Phone: [facility] 10-22-2024 14:26-0400 Systolic blood pressure 120 mm[Hg] Phillip Ferreira MD Work Phone: [facility] 09-17-2024 12:58-0400 Body mass index (BMI) [Ratio] 40.97 kg/m2 Monse Oseas MATTRESS MAKER.GRADE RECORDER Work Phone: [facility] 09-17-2024 12:58-0400 Body temperature 98.4 [degF] Monse Oseas MATTRESS MAKER.GRADE RECORDER Work Phone: [facility] 09-17-2024 12:58-0400 Body weight 101.61 kg Monse Oseas MATTRESS MAKER.GRADE RECORDER Work Phone: [facility] 09-17-2024 12:58-0400 Diastolic blood pressure 83 mm[Hg] Monse Oseas MATTRESS MAKER.GRADE RECORDER Work Phone: [facility] 09-17-2024 12:58-0400 Heart rate 87 /min Monse Oseas MATTRESS MAKER.GRADE RECORDER Work Phone: [facility] 09-17-2024 12:58-0400 Respiratory rate 14 /min Monse Oseas MATTRESS MAKER.GRADE RECORDER Work Phone: [facility] 09-17-2024 12:58-0400 SaO2% (BldA) [Mass fraction] 98 % Monse Oseas MATTRESS MAKER.GRADE RECORDER Work Phone: [facility] 09-17-2024 12:58-0400 Systolic blood pressure 133 mm[Hg] Monse Oseas MATTRESS MAKER.GRADE RECORDER Work Phone: [facility] 08-05-2024 13:01-0400 Body mass index (BMI) [Ratio] 39.43 kg/m2 Lauren Guo MD Work Phone: [facility] 08-05-2024 13:01-0400 Body temperature 98.2 [degF] Lauren Guo MD Work Phone: [facility] 08-05-2024 13:01-0400 Body weight 97.8 kg Lauren Guo MD Work Phone: [facility] 08-05-2024 13:01-0400 Diastolic blood pressure 87 mm[Hg] Lauren Guo MD Work Phone: [facility] 08-05-2024 13:01-0400 Heart rate 101 /min Lauren Guo MD Work Phone: [facility] 08-05-2024 13:01-0400 Respiratory rate 14 /min Lauren Guo MD Work Phone: [facility] 08-05-2024 13:01-0400 SaO2% (BldA) [Mass fraction] 98 % Lauren Guo MD Work Phone: [facility] 08-05-2024 13:01-0400 Systolic blood pressure 127 mm[Hg] Lauren Guo MD Work Phone: [facility] 07-24-2024 08:49-0400 Body height 157.5 cm Pacc 1 Work Phone: [facility] 07-24-2024 08:49-0400 Body mass index (BMI) [Ratio] 39.32 kg/m2 Pacc 1 Work Phone: [facility] 07-24-2024 08:49-0400 Body temperature 98.1 [degF] Pacc 1 Work Phone: [facility] 07-24-2024 08:49-0400 Body weight 97.52 kg Pacc 1 Work Phone: [facility] 07-24-2024 08:49-0400 Diastolic blood pressure 72 mm[Hg] Pacc 1 Work Phone: [facility] 07-24-2024 08:49-0400 Heart rate 86 /min Pacc 1 Work Phone: [facility] 07-24-2024 08:49-0400 Respiratory rate 14 /min Pacc 1 Work Phone: [facility] 07-24-2024 08:49-0400 SaO2% (BldA) [Mass fraction] 100 % Pacc 1 Work Phone: [facility] 07-24-2024 08:49-0400 Systolic blood pressure 114 mm[Hg] Pacc 1 Work Phone: [facility] 07-22-2024 08:51-0400 Body height 157.5 cm Lauren Guo MD Work Phone: [facility] 07-22-2024 08:51-0400 Body mass index (BMI) [Ratio] 39.98 kg/m2 Lauren Guo MD Work Phone: [facility] 07-22-2024 08:51-0400 Body temperature 97.11 [degF] Lauren Guo MD Work Phone: [facility] 07-22-2024 08:51-0400 Body weight 99.16 kg Lauren Guo MD Work Phone: [facility] 07-22-2024 08:51-0400 Diastolic blood pressure 78 mm[Hg] Lauren Guo MD Work Phone: [facility] 07-22-2024 08:51-0400 Heart rate 97 /min Lauren Guo MD Work Phone: [facility] 07-22-2024 08:51-0400 SaO2% (BldA) [Mass fraction] 98 % Lauren Guo MD Work Phone: [facility] 07-22-2024 08:51-0400 Systolic blood pressure 118 mm[Hg] Lauren Guo MD Work Phone: [facility] 06-02-2024 11:42-0500 Body mass index (BMI) [Ratio] 43.02 kg/m2 Michelle Clutter PA-C Work Phone: [facility] 06-02-2024 11:42-0500 Body temperature 98.8 [degF] Michelle Clutter PA-C Work Phone: [facility] 06-02-2024 11:42-0500 Body weight 106.7 kg Michelle Clutter PA-C Work Phone: [facility] 06-02-2024 11:42-0500 Diastolic blood pressure 86 mm[Hg] Michelle Clutter PA-C Work Phone: [facility] 06-02-2024 11:42-0500 Heart rate 108 /min Michelle Clutter PA-C Work Phone: [facility] 06-02-2024 11:42-0500 Respiratory rate 18 /min Michelle Clutter PA-C Work Phone: [facility] 06-02-2024 11:42-0500 SaO2% (BldA) [Mass fraction] 99 % Michelle Clutter PA-C Work Phone: [facility] 06-02-2024 11:42-0500 Systolic blood pressure 142 mm[Hg] Michelle Crystalutter PA-C Work Phone: [facility] 03-18-2024 09:57-0500 Body mass index (BMI) [Ratio] 42.8 kg/m2 Hemalatha Anthony PA-C Work Phone: [facility] 03-18-2024 09:57-0500 Body weight 106.14 kg Hemalatha Gallegoer PA-C Work Phone: [facility] 03-18-2024 09:57-0500 Diastolic blood pressure 78 mm[Hg] Hemalatha Anthony PA-C Work Phone: [facility] 03-18-2024 09:57-0500 Heart rate 84 /min Hemalatha Anthony PA-C Work Phone: [facility] 03-18-2024 09:57-0500 SaO2% (BldA) [Mass fraction] 99 % Hemalatha Anthony PA-C Work Phone: [facility] 03-18-2024 09:57-0500 Systolic blood pressure 117 mm[Hg] Hemalatha Anthony PA-C Work Phone: [facility] 02-12-2024 10:54-0400 Body mass index (BMI) [Ratio] 40.97 kg/m2 Deana Tompkins MATTRESS MAKER.GRADE RECORDER Work Phone: [facility] 02-12-2024 10:54-0400 Body temperature 100.4 [degF] Deana Tompkins MATTRESS MAKER.GRADE RECORDER Work Phone: [facility] 02-12-2024 10:54-0400 Body weight 101.6 kg Deana Tompkins MATTRESS MAKER.GRADE RECORDER Work Phone: [facility] 02-12-2024 10:54-0400 Diastolic blood pressure 82 mm[Hg] Deana Tompkins MATTRESS MAKER.GRADE RECORDER Work Phone: [facility] 02-12-2024 10:54-0400 Heart rate 112 /min Deana Tompkins MATTRESS MAKER.GRADE RECORDER Work Phone: [facility] 02-12-2024 10:54-0400 Respiratory rate 18 /min Deana Tompkins MATTRESS MAKER.GRADE RECORDER Work Phone: [facility] 02-12-2024 10:54-0400 SaO2% (BldA) [Mass fraction] 98 % Deana Tompkins MATTRESS MAKER.GRADE RECORDER Work Phone: [facility] 02-12-2024 10:54-0400 Systolic blood pressure 122 mm[Hg] Deana Tompkins MATTRESS MAKER.GRADE RECORDER Work Phone: [facility] 02-06-2024 14:08-0400 Diastolic blood pressure 80 mm[Hg] Patric Boone MD Work Phone: [facility] 02-06-2024 14:08-0400 Heart rate 90 /min Patric Boone MD Work Phone: [facility] 02-06-2024 14:08-0400 Respiratory rate 18 /min Patric Boone MD Work Phone: [facility] 02-06-2024 14:08-0400 SaO2% (BldA) [Mass fraction] 100 % Patric Boone MD Work Phone: [facility] 02-06-2024 14:08-0400 Systolic blood pressure 122 mm[Hg] Patric Boone MD Work Phone: [facility] 02-06-2024 13:52-0400 Body temperature 97.2 [degF] Patric Boone MD Work Phone: [facility] 01-30-2024 09:36-0400 Body height 157.5 cm Patric Boone MD Work Phone: [facility] 01-30-2024 09:36-0400 Body mass index (BMI) [Ratio] 41.34 kg/m2 Patric Boone MD Work Phone: [facility] 01-30-2024 09:36-0400 Body weight 102.51 kg Patric Boone MD Work Phone: [facility] 01-30-2024 09:36-0400 Diastolic blood pressure 77 mm[Hg] Patric Boone MD Work Phone: [facility] 01-30-2024 09:36-0400 Heart rate 72 /min Patric Boone MD Work Phone: [facility] 01-30-2024 09:36-0400 Respiratory rate 18 /min Patric Boone MD Work Phone: [facility] 01-30-2024 09:36-0400 Systolic blood pressure 131 mm[Hg] Patric Boone MD Work Phone: [facility] 11-16-2023 13:00-0400 Diastolic blood pressure 80 mm[Hg] Lauren Guo MD Work Phone: [facility] 11-16-2023 13:00-0400 Heart rate 86 /min Lauren Guo MD Work Phone: [facility] 11-16-2023 13:00-0400 SaO2% (BldA) [Mass fraction] 100 % Lauren Guo MD Work Phone: [facility] 11-16-2023 13:00-0400 Systolic blood pressure 140 mm[Hg] Lauren Guo MD Work Phone: [facility] 11-16-2023 12:45-0400 Respiratory rate 18 /min Lauren Guo MD Work Phone: [facility] 11-16-2023 12:19-0400 Body temperature 98.4 [degF] Lauren Guo MD Work Phone: [facility] 09-21-2023 08:10-0400 Body mass index (BMI) [Ratio] 35.7 kg/m2 Lauren Guo MD Work Phone: [facility] 09-21-2023 [id number] Body weight 99.79 kg Lauren Guo MD Work Phone: [facility] 09-05-2023 10:28-0400 Body mass index (BMI) [Ratio] 36.02 kg/m2 Hemalatha Gallegoer PA-C Work Phone: [facility] 09-05-2023 [id number] Body weight 100.7 kg Hemalatha Gallegoer PA-C Work Phone: [facility] 09-05-2023 [id number] Diastolic blood pressure 80 mm[Hg] Hemalatha Gallegoer PA-C Work Phone: [facility] 09-05-2023 10:28-0400 Heart rate 69 /min Hemalatha Gallegoer PA-C Work Phone: [facility] 09-05-2023 10:28-0400 Respiratory rate 18 /min Hemalatha Queener PA-C Work Phone: [facility] 09-05-2023 [id number] SaO2% (BldA) [Mass fraction] 100 % Hemalatha Gallegoer PA-C Work Phone: [facility] 09-05-2023 10:28-0400 Systolic blood pressure 121 mm[Hg] Hemalatha Gallegoer PA-C Work Phone: [facility] 08-31-2023 08:26-0400 Body mass index (BMI) [Ratio] 35.77 kg/m2 Zita Tamayo MD Work Phone: [facility] 08-31-2023 08:26-0400 Body weight 100 kg Zita Tamayo MD Work Phone: [facility] 08-31-2023 08:26-0400 Diastolic blood pressure 83 mm[Hg] Zita Tamayo MD Work Phone: [facility] 08-31-2023 08:26-0400 Heart rate 83 /min Zita Tamayo MD Work Phone: [facility] 08-31-2023 08:26-0400 Respiratory rate 18 /min Zita Tamayo MD Work Phone: [facility] 08-31-2023 08:26-0400 SaO2% (BldA) [Mass fraction] 99 % Zita Tamayo MD Work Phone: [facility] 08-31-2023 08:26-0400 Systolic blood pressure 128 mm[Hg] Zita Tamayo MD Work Phone: [facility] 05-24-2023 13:07-0500 Body height 157.48 cm DO Denise Celestino Work Phone: [facility] 05-24-2023 13:07-0500 Body mass index (BMI) [Ratio] 39.4 kg/m2 DO Denise Celestino Work Phone: [facility] 05-24-2023 13:07-0500 Body weight 97.97 kg DO Denise Celestino Work Phone: [facility] 05-24-2023 13:07-0500 Diastolic blood pressure 73 mm[Hg] DO Denise Celestino Work Phone: [facility] 05-24-2023 13:07-0500 Heart rate 80 /min DO Denise Celestino Work Phone: [facility] 05-24-2023 13:07-0500 Respiratory rate 18 /min DO Denise Celestino Work Phone: [facility] 05-24-2023 13:07-0500 SaO2% (BldA) [Mass fraction] 100 % DO Denise Celestino Work Phone: [facility] 05-24-2023 13:07-0500 Systolic blood pressure 109 mm[Hg] DO Denise Celestino Work Phone: [facility] 12-19-2022 09:36-0400 Body height 157.48 cm DO Denise Celestino Work Phone: [facility] 12-19-2022 09:36-0400 Body mass index (BMI) [Ratio] 34 kg/m2 DO Denise Celestino Work Phone: [facility] 12-19-2022 09:36-0400 Body weight 84.36 kg DO Denise Celestino Work Phone: [facility] 12-19-2022 09:36-0400 Diastolic blood pressure 81 mm[Hg] DO Denise Celestino Work Phone: [facility] 12-19-2022 09:36-0400 Heart rate 80 /min DO Denise Celestino Work Phone: [facility] 12-19-2022 09:36-0400 Respiratory rate 18 /min DO Denise Celestino Work Phone: [facility] 12-19-2022 09:36-0400 SaO2% (BldA) [Mass fraction] 100 % DO Denise Celestino Work Phone: [facility] 12-19-2022 09:36-0400 Systolic blood pressure 129 mm[Hg] DO Denise Celestino Work Phone: [facility] 11-16-2022 12:52-0400 Body height 157.48 cm DO Denise Celestino Work Phone: [facility] 11-16-2022 12:52-0400 Body mass index (BMI) [Ratio] 33.8 kg/m2 DO Denise Celestino Work Phone: [facility] 11-16-2022 12:52-0400 Body temperature 98.6 [degF] DO Denise Celestino Work Phone: [facility] 11-16-2022 12:52-0400 Body weight 83.91 kg DO Denise Celestino Work Phone: [facility] 11-16-2022 12:52-0400 Diastolic blood pressure 104 mm[Hg] DO Denise Celestino Work Phone: [facility] 11-16-2022 12:52-0400 Heart rate 99 /min DO Denise Celestino Work Phone: [facility] 11-16-2022 12:52-0400 Respiratory rate 16 /min DO Denise Celestino Work Phone: [facility] 11-16-2022 12:52-0400 SaO2% (BldA) [Mass fraction] 100 % DO Denise Celestino Work Phone: [facility] 11-16-2022 12:52-0400 Systolic blood pressure 157 mm[Hg] DO Denise Celestino Work Phone: [facility] 11-15-2022 00:08-0400 Diastolic blood pressure 97 mm[Hg] DO Denise Celestino Work Phone: [facility] 11-15-2022 00:08-0400 Heart rate 88 /min DO Denise Celestino Work Phone: [facility] 11-15-2022 00:08-0400 Respiratory rate 16 /min DO Denise Celestino Work Phone: [facility] 11-15-2022 00:08-0400 SaO2% (BldA) [Mass fraction] 99 % DO Denise Celestino Work Phone: [facility] 11-15-2022 00:08-0400 Systolic blood pressure 137 mm[Hg] DO Denise Celestino Work Phone: [facility] 11-14-2022 21:29-0400 Body height 157.48 cm DO Denise Celestino Work Phone: [facility] 11-14-2022 21:29-0400 Body mass index (BMI) [Ratio] 34 kg/m2 DO Denise Celestino Work Phone: [facility] 11-14-2022 21:29-0400 Body temperature 98 [degF] DO Denise Celestino Work Phone: [facility] 11-14-2022 21:29-0400 Body weight 84.23 kg DO Denisespenser Adornonger Work Phone: [facility] 10-21-2022 22:53-0400 Body height 157.48 cm DO Denise Celestino Work Phone: [facility] 10-21-2022 22:53-0400 Body mass index (BMI) [Ratio] 33.3 kg/m2 DO Denise Celestino Work Phone: [facility] 10-21-2022 22:53-0400 Body temperature 97.9 [degF] DO Denise Adornonger Work Phone: [facility] 10-21-2022 22:53-0400 Body weight 82.55 kg DO Denisespenser Adornonger Work Phone: [facility] 10-21-2022 22:53-0400 Diastolic blood pressure 97 mm[Hg] DO Denisespenser Adornonger Work Phone: [facility] 10-21-2022 22:53-0400 Heart rate 108 /min DO Denisespenser Adornonger Work Phone: [facility] 10-21-2022 22:53-0400 Respiratory rate 15 /min DO Denisespenser Adornonger Work Phone: [facility] 10-21-2022 22:53-0400 SaO2% (BldA) [Mass fraction] 100 % DO Denise Celestino Work Phone: [facility] 10-21-2022 22:53-0400 Systolic blood pressure 159 mm[Hg] DO Denisespenser Adornonger Work Phone: [facility] 10-04-2022 13:25-0400 Body weight 77.93 kg Hemalatha Anthony PA-C Work Phone: [facility] 10-04-2022 13:25-0400 Respiratory rate 18 /min Hemalatha Anthony PA-C Work Phone: [facility] 10-04-2022 13:25-0400 SaO2% (BldA) [Mass fraction] 99 % Hemalatha Gabrielle CABALLERO Work Phone: [facility] 09-06-2022 19:00-0400 Body mass index (BMI) [Ratio] 31.6 kg/m2 DO Denise Celestino Work Phone: [facility] 09-06-2022 19:00-0400 Body temperature 97 [degF] DO Denise Celestino Work Phone: [facility] 09-06-2022 19:00-0400 Body weight 78.47 kg DO Denise Celestino Work Phone: [facility] 09-06-2022 19:00-0400 Diastolic blood pressure 88 mm[Hg] DO Denise Celestino Work Phone: [facility] 09-06-2022 19:00-0400 Heart rate 95 /min DO Denise Celestino Work Phone: [facility] 09-06-2022 19:00-0400 Respiratory rate 18 /min DO Denise Celestino Work Phone: [facility] 09-06-2022 19:00-0400 SaO2% (BldA) [Mass fraction] 96 % DO Denise Celestino Work Phone: [facility] 09-06-2022 19:00-0400 Systolic blood pressure 138 mm[Hg] DO Denise Celestino Work Phone: [facility] 09-05-2022 22:05-0400 Body mass index (BMI) [Ratio] 31.6 kg/m2 DO Denise Celestino Work Phone: [facility] 09-05-2022 22:05-0400 Body temperature 98.9 [degF] DO Denise Celestino Work Phone: [facility] 09-05-2022 22:05-0400 Body weight 78.47 kg DO Deinse Celestino Work Phone: [facility] 09-05-2022 22:05-0400 Diastolic blood pressure 96 mm[Hg] DO Denise Celestino Work Phone: [facility] 09-05-2022 22:05-0400 Heart rate 93 /min DO Denise Celestino Work Phone: [facility] 09-05-2022 22:05-0400 Respiratory rate 15 /min DO Denise Celestino Work Phone: [facility] 09-05-2022 22:05-0400 SaO2% (BldA) [Mass fraction] 100 % DO Denise Celestino Work Phone: [facility] 09-05-2022 22:05-0400 Systolic blood pressure 136 mm[Hg] DO Denise Celestino Work Phone: [facility] 08-01-2022 15:18-0400 Body mass index (BMI) [Ratio] 32.1 kg/m2 DO Denise Celestino Work Phone: [facility] 08-01-2022 15:18-0400 Body weight 77.11 kg DO Denise Celestino Work Phone: [facility] 08-01-2022 15:18-0400 Diastolic blood pressure 74 mm[Hg] DO Denise Celestino Work Phone: [facility] 08-01-2022 15:18-0400 Heart rate 88 /min DO Denise Celestino Work Phone: [facility] 08-01-2022 15:18-0400 Respiratory rate 18 /min DO Denise Celestino Work Phone: [facility] 08-01-2022 15:18-0400 SaO2% (BldA) [Mass fraction] 98 % DO Denise Celestino Work Phone: [facility] 08-01-2022 15:18-0400 Systolic blood pressure 122 mm[Hg] DO Denise Celestino Work Phone: [facility] 05-11-2022 16:02-0500 Diastolic blood pressure 72 mm[Hg] DO Denise Tirado Work Phone: [facility] 05-11-2022 16:02-0500 Heart rate 96 /min DO Denise Tirado Work Phone: [facility] 05-11-2022 16:02-0500 Systolic blood pressure 124 mm[Hg] DO Denise Tirado Work Phone: [facility] 05-11-2022 15:48-0500 Body height 154.94 cm DO Denise Tirado Work Phone: [facility] 05-11-2022 15:48-0500 Body mass index (BMI) [Ratio] 30.8 kg/m2 DO Denise Tirado Work Phone: [facility] 05-11-2022 15:48-0500 Body weight 73.99 kg DO Denise Tirado Work Phone: [facility] 05-11-2022 15:48-0500 Respiratory rate 14 /min DO Denise Tirado Work Phone: [facility] Encounters Encounter Date Encounter Type Care Provider Facility Start: 02-05-2025 End: 02-05-2025 [facility] Start: 01-23-2025 End: 01-23-2025 Emergency department patient visit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 LIST Gastroesophageal Reflux Disease Dizziness Headache Postural Orthostatic Tachycardia Syndrome (Pots) Pre-Op Examination Mirta (Obstructive Sleep Apnea) Bmi 39.0-39.9,Adult Attention-Deficit Hyperactivity Disorder, Unspecified Type Thyroid Nodule Anxiety and Depression Vhd (Valvular Heart Disease) PAST MEDICAL HISTORY Diagnosis Date Chronic bilateral [...] stenosis of lumbar region without neurogenic claudication Medications: Reviewed DULoxetine DR (CYMBALTA) 60 mg capsule^Take 60 mg by mouth once daily.^Disp: ^Rfl: baclofen 5 mg tablet^Take 5 mg by mouth three times a day.^Disp: ^Rfl: ergocalciferol 50,000 unit capsule (VITAMIN D2, DRISDOL)^Take 50,000 Units by mouth one time a week.^Disp: ^Rfl: cetirizine (ZYRTEC) 10 mg tablet^TAKE 1 TABLET BY MOUTH EVERY DAY^Disp: 30 tablet^Rfl: 0 omeprazole (PRILOSEC) 40 mg capsule^Take 40 mg by mouth once daily.^Disp: ^Rfl: dicyclomine (BENTYL) 20 mg tablet^Take 20 mg by mouth three times a day.^Disp: ^Rfl: ondansetron orally disintegrating (ZOFRAN ODT) 4 mg disintegrating tablet^Take 4 mg by mouth every 8 hours as needed.^Disp: ^Rfl: traZODone (DESYREL) 50 mg tablet^Take 50 mg by mouth at bedtime as needed. For Insomnia^Disp: ^Rfl: (Patient taking differently: Take 100 mg by mouth at bedtime as needed for sedation. For Insomnia) vonoprazan (VOQUEZNA) 10 mg tablet^Take 10 mg by mouth once daily.^Disp: ^Rfl: QELBREE 200 mg capsule, extended release^Take 2 capsules by mouth every afternoon.^Disp: ^Rfl: metoprolol succinate ER (TOPROL XL) 25 mg 24 hr tablet^take 1 tablet by mouth every day^Disp: 30 tablet^Rfl: 3 (Patient taking differently: Take 50 mg by mouth once daily.) L-norgest/e.estradiol-e.estrad (JAIMIESS ORAL)^Take 1 tablet by mouth once daily.^Disp: ^Rfl: mecobalamin, vitamin B12, (B12 ACTIVE) 1,000 mcg chew^Take 2,000 mcg by mouth once daily.^Disp: ^Rfl: ketotifen fumarate (ZADITOR) 0.025 % (0.035 %) ophthalmic solution^Use 1 Drop in both eyes two times a day as needed.^Disp: 10 mL^Rfl: 4 naratriptan (AMERGE) 2.5 mg tablet^Take 1 tablet by mouth as needed. May repeat dose after 4 hours if needed. Maximum daily dose is 5 mg per day.^Disp: 10 tablet^Rfl: 2 ALLERGIES Allergen Reactions Methocarbamol Mental Status Change Unable to think Cyclobenzaprine Rash FAMILY HISTORY Problem Relation Age of Onset other (gall bladder) Mother gall stones Polycystic Ovary Syndrome Sister Seizures Maternal Grandmother Heart Other maternal and paternal side Hypertension Other maternal great mother Cancer Other brain cancer- maternal great aunt other (hearing problems [Other]) Other maternal grandmother Malig Hyperthermia No Family History PAST SURGICAL HISTORY Procedure Laterality Date EGD WITH BIOPSY(S) 11/16/2023 Dr. Guo EGD WITH BIOPSY(S) 02/06/2024 Dr. Boone MANOMETRY ESOPHAGEAL 02/06/2024 Dr. Boone PH SMALLS INSERT OFF MEDS 02/06/2024 Dr. Boone REMOVAL GALLBLADDER 07/30/2024 Social Hx: @Alcohol Use: Not on file Tobacco Use: Low Risk (12/18/2024) Patient History Smoking Tobacco Use: Never Smokeless Tobacco Use: Never Passive Exposure: Not on file 12/24/24 1120 12/24/24 11212/[id number]/241122 Orthostatic BP: 101/68 122/86 132/84 BP Site: Left Arm Left Arm Left Arm BP Position: Supine Sitting Standing BP Cuff Size: Large Adult Large Adult Large Adult Orthostatic Pulse: 83 83 102 Resp: 16 SpO2: 98% Weight: 102.6 kg (226 lb 3.2 oz) Neurologic Exam Cognitive and Language: Alert and answered questions appropriately. Language was fluent. Appears uncomfortable Cranial Nerves: Extraocular movements were full with no diplopia or nystagmus. Facial strength was symmetric. Motor: moves all four extremities Sensory: no evidence of neglect Coordination: Normal finger to nose and heel to clemente testing bilaterally. Normal gait. Labs: Lab Results Component Value Date WBC 5.10 07/24/2024 HCT 38.7 07/24/2024 MCV 84.3 07/24/2024 PLT 252 07/24/2024 Lab Results Component Value Date HBA1C 5.0 01/09/2023 No results found for: CHOL, HDL, LDL, TG Results for orders placed or performed in visit on 12/23/24 STREP A MOLECULAR (POC) Specimen: Oropharynx; Swab Result Value Ref Range Strep A (POCT) Negative Negative Procedural Control Valid Radiology: MRI Head/Brain - Last 2 Impressions No resulted procedures found. and MRI Spine - Last 2 Impressions No resulted procedures found. This note was dictated using [employer] speech recognition software and may contain some errors that were a result of the program not accurately transcribing what was dictated, despite efforts to make corrections. Note that unless urgent, test and MRI results will be discussed at next follow-up visit. PROMIS (Patient-Reported Outcomes Measurement Information System) is a set of person-centered measures that evaluates and monitors physical, social, and emotional health. It can be used with the general population and with individuals living with chronic conditions. PROMIS 10: PHYSICAL AND MENTAL HEALTH: Global Physical Health T Score: 32.4 Global Physical Health Percentile: 4 Global Mental Health T Score: 45.8 Global Mental Health Percentile: 34 03/16/2024 PHQ-9 PHQ-2 Score 3 PHQ-9 Score 16 I spent a total of 35 minutes on the date of the service which included preparing to see the patient, [id number]-[id number] patient care, completing clinical documentation, obtaining and/or reviewing separately obtained history, performing a medically appropriate examination, counseling and educating the patient/family/caregiver, and ordering medications, tests, or procedures. Recording using [employer] software for draft documentation of the visit was discussed with the patient/authorized union representative; all questions welcomed and answered. Patient/authorized union representative agreed to proceed documented in this encounter [facility] 12-24-2024 Telephone encounter Note Recently saw eye doc at [facility] in [place]. Are we able to get last note? [facility] 12-24-2024 Miscellaneous Notes Recently saw eye doc at [facility] in [place]. Are we able to get last note? documented in this encounter [facility] 12-24-2024 Instructions Hemalatha Anthony PA-C - 12/24/2024 11:44 AM EDT Reach out if headache persists after toradol shot Will try amerge with start of headache. If headache persists, can take another after two hours. Continue with metoprolol, water intake and exercise (as tolerated) for POTS Follow with pain management as planned Try increasing B12 to 3000 mcg daily, if still low will need injections if under 400 on lab Follow up in 6 months documented in this encounter [facility] 12-24-2024 Note HNO ID: [id number] Author: HEMALATHA ANTHONY PA-C Service: ? Author Type: Physician Green Inspector Type: Progress Notes Filed: 12/24/2024 12:19 Note Text: [facility] Name: Ace Leonardo Age: [age] year old Gender: female Primary Care Provider: Karthik Lino MD, MD Assessment/Plan: 12/24/2024 - General Neurology, Hemalatha Anthony PA-C ASSESSMENT ASSESSMENT/PLAN: 1. Intractable migraine without aura and without status migrainosus - ICD9: 346.11, ICD10: G43.019 (primary diagnosis) Patient reporting chronic history of headaches for years, coinciding with her onset of POTS. Typically gets 1-2 headaches a week, has never been prescribed or seen for this before. Notes today she has had a headache for a few weeks after starting Cymbalta for pain management. Is pain management to possibly switch to gabapentin. Typically takes [id number] medications without any significant benefit. Has tried steroids in the past for other pain and would defer this today. Discussed Toradol and notes that she is tolerated well, no ibuprofen or other NSAIDs today. Will give Toradol 60 mg in the office today, tolerated well without any complication. Should headache persist, discussed a 5-day Medrol Dosepak and patient is amenable. For abortive relief, no history of stroke or heart attack, will try Amerge 2.5 mg at start of headache as she typically has headaches last few days. Will not start any preventatives at this time as she is currently going through medication changes to pain management. Recently saw her eye doctor, will have records sent over. 2. Chronic bilateral low back pain with left-sided sciatica - ICD9: 338.29, 724.2, 724.3, ICD10: G89.29, M54.42 Following with pain management. 3. POTS (postural orthostatic tachycardia syndrome) - ICD9: 427.89, ICD10: G90.A 4. Orthostatic hypotension - ICD9: 458.0, ICD10: I95.1 Vital signs normal, well-controlled at this time. Encouraged conservative therapy and will continue with metoprolol 50 mg daily. Following with cardiology as well. Patient agreeable to treatment plan of care at this time, questions were answered. Patient to follow-up in 6 months. Hemalatha Anthony PA-C Encounter Diagnosis ICD-10-CM 1. Intractable migraine without aura and without status migrainosus G43.019 2. Chronic bilateral low back pain with left-sided sciatica G89.29 M54.42 3. POTS (postural orthostatic tachycardia syndrome) G90.A 4. Orthostatic hypotension I95.1 Return in about 6 months (around 06/23/2025). Chart, labs,and relevant images reviewed. Chief Complaint:Patient presents with: Follow Up: MRI not approved- Saw Dr Brantley for pain management, Has not completed HSAT Chart Review: 03/18/24 HPI: Last seen for POTS and back pain on 03/18/24, doing well on metoprolol 50mg. Having some low back pain. Ordered HSAT to look for MIRTA. Ordered Lumbar MRI. Patient presents for follow-up. Notes POTS is well-managed, saw her windows deployment technician about a month ago, still continuing metoprolol 50 mg daily. Drinking plenty of water but not exercising much due to chronic pain diffusely in the lumbar spine. Notes that she did a steroid shot for her back but it did not help. Following with pain management and they are undergoing an appeal for lumbar MRI. Also started on Cymbalta but notes that she has had a headache every day since for the last 2 to 3 weeks. History of migraines in the past, has never sought treatment for them in the past, no prescription medications. Typically gets 1-2 a week, asch-zct-pvahzgh medications does not help. Headaches are typically frontal, described as a pressure and throbbing sensation, started since she developed POTS. No autonomic features with them, has associated sensitive to light and nausea, occasionally dizziness. They gradually worsened throughout the day, can symptoms last multiple days. Will get some blurred vision bilaterally but no aura. Saw her eye doctor a few months ago. Prior meds: Cymbalta Review of Systems ACTIVE PROBLEM LIST Gastroesophageal Reflux Disease Dizziness Headache Postural Orthostatic Tachycardia Syndrome (Pots) Pre-Op Examination Mirta (Obstructive Sleep Apnea) Bmi 39.0-39.9,Adult Attention-Deficit Hyperactivity Disorder, Unspecified Type Thyroid Nodule Anxiety and Depression Vhd (Valvular Heart Disease) PAST MEDICAL HISTORY Diagnosis Date Chronic bilateral [...] side Spinal stenosis of lumbar region without (more content not included)... [facility] 12-23-2024 History of Present illness Narrative [facility] Subjective Ace Leonardo is a 24 year old female presenting with myalgia, sore throat, nasal congestion x 2 days. Nasal Congestion This is a new problem. The current episode started yesterday. The problem is unchanged. There has been no fever. Her pain is at a severity of 3/10. The pain is mild. Associated symptoms include chills, congestion (yellow and green drainge), coughing (dry non-prodcutive cough), headaches (3/10), a hoarse voice, sinus pressure, sneezing and a sore throat (3/10). Pertinent negatives include no diaphoresis (reports sweaty hands), ear pain, neck pain or shortness of breath. Past treatments include acetaminophen (Ibuprofen). The treatment provided mild relief. Review of Systems Constitutional: Positive for chills and fatigue. Negative for diaphoresis (reports sweaty hands) and fever. HENT: Positive for congestion (yellow and green drainge), hoarse voice, postnasal drip, rhinorrhea, sinus pressure, sinus pain, sneezing, sore throat (3/10) and voice change. Negative for ear discharge, ear pain, tinnitus and trouble swallowing. Eyes: Negative for pain, discharge, redness and itching. Respiratory: Positive for cough (dry non-prodcutive cough). Negative for chest tightness, shortness of breath and wheezing. Cardiovascular: Negative for chest pain. Musculoskeletal: Negative for arthralgias and neck pain. Allergic/Immunologic: Negative for environmental allergies. Neurological: Positive for headaches (3/10). Negative for dizziness, weakness, light-headedness and numbness. Objective BP 118/68 Pulse 98 Temp 36.8 C (98.2 F) Resp 16 Wt 102.4 kg (225 lb 12 oz) LMP (LMP Unknown) SpO2 97% BMI 41.29 kg/m Physical Exam Vitals and nursing note reviewed. Constitutional: General: She is awake. She is not in acute distress. Appearance: Normal appearance. She is ill-appearing. She is not toxic-appearing. HENT: Head: Normocephalic and atraumatic. Right Ear: Tympanic membrane, ear canal and external ear normal. No drainage, swelling or tenderness. Tympanic membrane is not scarred, perforated or erythematous. Left Ear: Tympanic membrane, ear canal and external ear normal. No drainage, swelling or tenderness. Tympanic membrane is not scarred, perforated or erythematous. Nose: Congestion present. No nasal deformity, septal deviation, signs of injury, nasal tenderness or rhinorrhea. Right Turbinates: Not enlarged, swollen or pale. Left Turbinates: Not enlarged, swollen or pale. Right Sinus: No maxillary sinus tenderness or frontal sinus tenderness. Left Sinus: No maxillary sinus tenderness or frontal sinus tenderness. Mouth/Throat: Lips: Nilwood. No lesions. Mouth: Mucous membranes are dry. No injury. Tongue: No lesions. Tongue does not deviate from midline. Palate: No mass and lesions. Pharynx: Oropharynx is clear. Uvula midline. Posterior oropharyngeal erythema present. No pharyngeal swelling, uvula swelling or postnasal drip. Tonsils: No tonsillar exudate or tonsillar abscesses. 2+ on the right. 2+ on the left. Eyes: General: Lids are normal. Lids are everted, no foreign bodies appreciated. No allergic shiner or scleral icterus. Right eye: No foreign body, discharge or hordeolum. Left eye: No foreign body, discharge or hordeolum. Extraocular Movements: Extraocular movements intact. Conjunctiva/sclera: Conjunctivae normal. Cardiovascular: Rate and Rhythm: Normal rate and regular rhythm. Heart sounds: Normal heart sounds, S1 normal and S2 normal. Pulmonary: Effort: Pulmonary effort is normal. Breath sounds: Normal breath sounds and air entry. No wheezing or rhonchi. Musculoskeletal: Cervical back: Full passive range of motion without pain. Lymphadenopathy: Head: Right side of head: Tonsillar adenopathy present. No submental, submandibular, preauricular, posterior auricular or occipital adenopathy. Left side of head: No submental, submandibular, tonsillar, preauricular, posterior auricular or occipital adenopathy. Skin: General: Skin is warm. Capillary Refill: Capillary refill takes less than 2 seconds. Neurological: Mental Status: She is alert and oriented to person, place, and time. Psychiatric: Mood and Affect: Mood normal. {ASSESSMENT/PLAN: 1. Sore throat - ICD9: 462, ICD10: J02.9 - suspect viral - Discussed supportive care treatment with fluids, rest and analgesia. - The patient may also use OTC decongestants prn. - Contagious dz precautions discussed- including considered contagious - Supportive care with plenty of fluids, rest, and analgesia prn. - The patient should follow up in 3-5 days if symptoms persist or worsen - Proceed to ER if drooling, increased temperature, symptoms of dehydration and/or still sick in one week - STREP A MOLECULAR (POC) - neg Disposition The patient was discharged. Procedures Discussed medication dosage, usage, goals of therapy, and side effects. Return to [facility], call primary care provider, or go to the emergency department for problems, worsening, increased or new symptoms, etc. Red flag symptoms discussed with the patient and when to go to ER. Patient verbalized understanding to plan of care. Susana Abel FAN INSTALLER student TEACHING PROVIDER (Physician/PA/MATTRESS MAKER) NOTE OF PERSONAL INVOLVEMENT IN CARE: I have personally seen and examined the patient and performed the medical decision-making components. I have reviewed the Advanced Practice Registered Nurse (MATTRESS MAKER) Student's documentation and verified the findings in the note as written. Any additions or changes are noted in bold/italics. Signature: Pilar Hart Date: 12/23/2024 Time: 1:55 PM documented in this encounter [facility] 12-23-2024 Note HNO ID: [id number] Author: PILAR HART APRN.[facility] Service: ? Author Type: Nurse Practitioner Type: Progress Notes Filed: 12/23/2024 13:55 Note Text: [facility] Subjective Ace Leonardo is a 24 year old female presenting with myalgia, sore throat, nasal congestion x 2 days. Nasal Congestion This is a new problem. The current episode started yesterday. The problem is unchanged. There has been no fever. Her pain is at a severity of 3/10. The pain is mild. Associated symptoms include chills, congestion (yellow and green drainge), coughing (dry non-prodcutive cough), headaches (3/10), a hoarse voice, sinus pressure, sneezing and a sore throat (3/10). Pertinent negatives include no diaphoresis (reports sweaty hands), ear pain, neck pain or shortness of breath. Past treatments include acetaminophen (Ibuprofen). The treatment provided mild relief. Review of Systems Constitutional: Positive for chills and fatigue. Negative for diaphoresis (reports sweaty hands) and fever. HENT: Positive for congestion (yellow and green drainge), hoarse voice, postnasal drip, rhinorrhea, sinus pressure, sinus pain, sneezing, sore throat (3/10) and voice change. Negative for ear discharge, ear pain, tinnitus and trouble swallowing. Eyes: Negative for pain, discharge, redness and itching. Respiratory: Positive for cough (dry non-prodcutive cough). Negative for chest tightness, shortness of breath and wheezing. Cardiovascular: Negative for chest pain. Musculoskeletal: Negative for arthralgias and neck pain. Allergic/Immunologic: Negative for environmental allergies. Neurological: Positive for headaches (3/10). Negative for dizziness, weakness, light-headedness and numbness. Objective BP 118/68 Pulse 98 Temp 36.8 ?C (98.2 ?F) Resp 16 Wt 102.4 kg (225 lb 12 oz) LMP (LMP Unknown) SpO2 97% BMI 41.29 kg/m? Physical Exam Vitals and nursing note reviewed. Constitutional: General: She is awake. She is not in acute distress. Appearance: Normal appearance. She is ill-appearing. She is not toxic-appearing. HENT: Head: Normocephalic and atraumatic. Right Ear: Tympanic membrane, ear canal and external ear normal. No drainage, swelling or tenderness. Tympanic membrane is not scarred, perforated or erythematous. Left Ear: Tympanic membrane, ear canal and external ear normal. No drainage, swelling or tenderness. Tympanic membrane is not scarred, perforated or erythematous. Nose: Congestion present. No nasal deformity, septal deviation, signs of injury, nasal tenderness or rhinorrhea. Right Turbinates: Not enlarged, swollen or pale. Left Turbinates: Not enlarged, swollen or pale. Right Sinus: No maxillary sinus tenderness or frontal sinus tenderness. Left Sinus: No maxillary sinus tenderness or frontal sinus tenderness. Mouth/Throat: Lips: Nilwood. No lesions. Mouth: Mucous membranes are dry. No injury. Tongue: No lesions. Tongue does not deviate from midline. Palate: No mass and lesions. Pharynx: Oropharynx is clear. Uvula midline. Posterior oropharyngeal erythema present. No pharyngeal swelling, uvula swelling or postnasal drip. Tonsils: No tonsillar exudate or tonsillar abscesses. 2+ on the right. 2+ on the left. Eyes: General: Lids are normal. Lids are everted, no foreign bodies appreciated. No allergic shiner or scleral icterus. Right eye: No foreign body, discharge or hordeolum. Left eye: No foreign body, discharge or hordeolum. Extraocular Movements: Extraocular movements intact. Conjunctiva/sclera: Conjunctivae normal. Cardiovascular: Rate and Rhythm: Normal rate and regular rhythm. Heart sounds: Normal heart sounds, S1 normal and S2 normal. Pulmonary: Effort: Pulmonary effort is normal. Breath sounds: Normal breath sounds and air entry. No wheezing or rhonchi. Musculoskeletal: Cervical back: Full passive range of motion without pain. Lymphadenopathy: Head: Right side of head: Tonsillar adenopathy present. No submental, submandibular, preauricular, posterior auricular or occipital adenopathy. Left side of head: No submental, submandibular, tonsillar, preauricular, posterior auricular or occipital adenopathy. Skin: General: Skin is warm. Capillary Refill: Capillary refill takes less than 2 seconds. Neurological: Mental Status: She is alert and oriented to person, place, and time. Psychiatric: Mood and Affect: Mood normal. {ASSESSMENT/PLAN: 1. Sore throat - ICD9: 462, ICD10: J02.9 - suspect viral - Discussed supportive care treatment with fluids, rest and analgesia. - The patient may also use OTC decongestants prn. - Contagious dz precautions discussed- including considered contagious - Supportive care with plenty of fluids, rest, and analgesia prn. - The patient should follow up in 3-5 days if symptoms persist or worsen - Proceed to ER if drooling, increased temperature, symptoms of dehydration and/or still sick in (more content not included)... [facility] 12-18-2024 History of Present illness Narrative HISTORY AND PHYSICAL Ace Leonardo 2000 REFERRING PHYSICIAN: No ref. provider found CHIEF COMPLAINT: No chief complaint on file. HPI: The patient is a 24 year old female with a complaint of follow up for umbilicus infection. I saw Ace on 12/12/24 her umbilicus was noted to be red, have a foul smell & she noted purulent drainage. I started her on a 5 day course of keflex. She completed that yesterday. Today she notes symptoms have completely resolved. PAST MEDICAL HISTORY Diagnosis Date Chronic bilateral low back pain with left-sided sciatica Class 3 severe obesity due to excess calories without serious comorbidity with body mass index (BMI) of 40.0 to 44.9 in adult ([facility]) Gastroesophageal reflux disease, unspecified whether esophagitis present GERD (gastroesophageal reflux disease) Morbid obesity with BMI of 40.0-44.9, adult ([facility]) Obstructive sleep apnea POTS (postural orthostatic tachycardia syndrome) Regurgitation of food Sciatica of left side Spinal stenosis of lumbar region without neurogenic claudication PAST SURGICAL HISTORY Procedure Laterality Date EGD WITH BIOPSY(S) 11/16/2023 Dr. Guo EGD WITH BIOPSY(S) 02/06/2024 Dr. Boone MANOMETRY ESOPHAGEAL 02/06/2024 Dr. Boone PH SMALLS INSERT OFF MEDS 02/06/2024 Dr. Boone REMOVAL GALLBLADDER 07/30/2024 Current Outpatient Medications Medication Sig DULoxetine DR (LIDIAMBALTA) 60 mg capsule Take 60 mg by mouth once daily. baclofen 5 mg tablet Take 5 mg by mouth three times a day. cephALEXin (KEFLEX) 500 mg capsule Take 1 capsule by mouth four times daily for 5 days. ergocalciferol 50,000 unit capsule (VITAMIN D2, DRISDOL) Take 50,000 Units by mouth one time a week. cetirizine (ZYRTEC) 10 mg tablet TAKE 1 TABLET BY MOUTH EVERY DAY omeprazole (PRILOSEC) 40 mg capsule Take 40 mg by mouth once daily. dicyclomine (BENTYL) 20 mg tablet Take 20 mg by mouth three times a day. ondansetron orally disintegrating (ZOFRAN ODT) 4 mg disintegrating tablet Take 4 mg by mouth every 8 hours as needed. traZODone (DESYREL) 50 mg tablet Take 50 mg by mouth at bedtime as needed. For Insomnia vonoprazan (VOQUEZNA) 10 mg tablet Take 10 mg by mouth once daily. QELBREE 200 mg capsule, extended release Take 2 capsules by mouth every afternoon. metoprolol succinate ER (TOPROL XL) 25 mg 24 hr tablet take 1 tablet by mouth every day L-norgest/e.estradiol-e.estrad (JAIMIESS ORAL) Take 1 tablet by mouth once daily. mecobalamin, vitamin B12, (B12 ACTIVE) 1,000 mcg chew Take 2,000 mcg by mouth once daily. ketotifen fumarate (ZADITOR) 0.025 % (0.035 %) ophthalmic solution Use 1 Drop in both eyes two times a day as needed. No current facility-administered medications for this visit. ALLERGIES: Methocarbamol and Cyclobenzaprine PERSONAL HISTORY: SOCIAL HISTORY[1] FAMILY HISTORY: FAMILY HISTORY Problem Relation Age of Onset other (gall bladder) Mother gall stones Polycystic Ovary Syndrome Sister Seizures Maternal Grandmother Heart Other maternal and paternal side Hypertension Other maternal great mother Cancer Other brain cancer- maternal great aunt other (hearing problems [Other]) Other maternal grandmother Malig Hyperthermia No Family History PHYSICAL EXAMINATION: General: The patient is 24 year old female, well nourished, well hydrated in no acute distress. The patient is oriented to time, place, and person. VITALS: Pulse 79, temperature 36.1 C (97 F), SpO2 100%. There is no height or weight on file to calculate BMI. Abdominal exam: There is no drainage, tenderness or erythema of the umbilicus. ASSESSMENT/PLAN: 1. Skin infection - ICD9: 686.9, ICD10: L08.9 - Symptoms have completely resolved. Discussed that if symptoms reoccur she should follow up with Dr. Guo since he completed the lap matty to determine further testing/alternative treatment. Diagnoses: (L08.82) Omphalitis in adult (primary encounter diagnosis) Return to Clinic: The patient is instructed to follow-up with me as needed. Patient verbalized understanding of all above and agreed with the plan Monse Chapin APRN.[facility] [1] Social History Tobacco Use Smoking status: Never Smokeless tobacco: Never Vaping Use Vaping status: Never Used Substance Use Topics Alcohol use: Not Currently Drug use: Not Currently Types: Marijuana Comment: smoked once years ago documented in this encounter [facility] 12-18-2024 Note HNO ID: [id number] Author: MONSE CHAPIN APRN.[facility] Service: ? Author Type: Nurse Practitioner Type: Progress Notes Filed: 12/18/2024 11:08 Note Text: HISTORY AND PHYSICAL Ace Richard Ralph 2000 REFERRING PHYSICIAN: No ref. provider found CHIEF COMPLAINT: No chief complaint on file. HPI: The patient is a 24 year old female with a complaint of follow up for umbilicus infection. I saw Ace on 12/12/24 her umbilicus was noted to be red, have a foul smell AND she noted purulent drainage. I started her on a 5 day course of keflex. She completed that yesterday. Today she notes symptoms have completely resolved. PAST MEDICAL HISTORY Diagnosis Date Chronic bilateral low back pain with left-sided sciatica Class 3 severe obesity due to excess calories without serious comorbidity with body mass index (BMI) of 40.0 to 44.9 in adult ([facility]) Gastroesophageal reflux disease, unspecified whether esophagitis present GERD (gastroesophageal reflux disease) Morbid obesity with BMI of 40.0-44.9, adult ([facility]) Obstructive sleep apnea POTS (postural orthostatic tachycardia syndrome) Regurgitation of food Sciatica of left side Spinal stenosis of lumbar region without neurogenic claudication PAST SURGICAL HISTORY Procedure Laterality Date EGD WITH BIOPSY(S) 11/16/2023 Dr. Guo EGD WITH BIOPSY(S) 02/06/2024 Dr. Boone MANOMETRY ESOPHAGEAL 02/06/2024 Dr. Boone PH SMALLS INSERT OFF MEDS 02/06/2024 Dr. Boone REMOVAL GALLBLADDER 07/30/2024 Current Outpatient Medications Medication Sig DULoxetine DR (CYMBALTA) 60 mg capsule Take 60 mg by mouth once daily. baclofen 5 mg tablet Take 5 mg by mouth three times a day. cephALEXin (KEFLEX) 500 mg capsule Take 1 capsule by mouth four times daily for 5 days. ergocalciferol 50,000 unit capsule (VITAMIN D2, DRISDOL) Take 50,000 Units by mouth one time a week. cetirizine (ZYRTEC) 10 mg tablet TAKE 1 TABLET BY MOUTH EVERY DAY omeprazole (PRILOSEC) 40 mg capsule Take 40 mg by mouth once daily. dicyclomine (BENTYL) 20 mg tablet Take 20 mg by mouth three times a day. ondansetron orally disintegrating (ZOFRAN ODT) 4 mg disintegrating tablet Take 4 mg by mouth every 8 hours as needed. traZODone (DESYREL) 50 mg tablet Take 50 mg by mouth at bedtime as needed. For Insomnia vonoprazan (VOQUEZNA) 10 mg tablet Take 10 mg by mouth once daily. QELBREE 200 mg capsule, extended release Take 2 capsules by mouth every afternoon. metoprolol succinate ER (TOPROL XL) 25 mg 24 hr tablet take 1 tablet by mouth every day L-norgest/e.estradiol-e.estrad (JAIMIESS ORAL) Take 1 tablet by mouth once daily. mecobalamin, vitamin B12, (B12 ACTIVE) 1,000 mcg chew Take 2,000 mcg by mouth once daily. ketotifen fumarate (ZADITOR) 0.025 % (0.035 %) ophthalmic solution Use 1 Drop in both eyes two times a day as needed. No current facility-administered medications for this visit. ALLERGIES: Methocarbamol and Cyclobenzaprine PERSONAL HISTORY: SOCIAL HISTORY[1] FAMILY HISTORY: FAMILY HISTORY Problem Relation Age of Onset other (gall bladder) Mother gall stones Polycystic Ovary Syndrome Sister Seizures Maternal Grandmother Heart Other maternal and paternal side Hypertension Other maternal great mother Cancer Other brain cancer- maternal great aunt other (hearing problems [Other]) Other maternal grandmother Malig Hyperthermia No Family History PHYSICAL EXAMINATION: General: The patient is 24 year old female, well nourished, well hydrated in no acute distress. The patient is oriented to time, place, and person. VITALS: Pulse 79, temperature 36.1 ?C (97 ?F), SpO2 100%. There is no height or weight on file to calculate BMI. Abdominal exam: There is no drainage, tenderness or erythema of the umbilicus. ASSESSMENT/PLAN: 1. Skin infection - ICD9: 686.9, ICD10: L08.9 - Symptoms have completely resolved. Discussed that if symptoms reoccur she should follow up with Dr. Guo since he completed the lap matty to determine further testing/alternative treatment. Diagnoses: (L08.82) Omphalitis in adult (primary encounter diagnosis) Return to Clinic: The patient is instructed to follow-up with me as needed. Patient verbalized understanding of all above and agreed with the plan Monse Chapin APRN.GRADE RECORDER [1] Social History Tobacco Use Smoking status: Never Smokeless tobacco: Never Vaping Use Vaping status: Never Used Substance Use Topics Alcohol use: Not Currently Drug use: Not Currently Types: Marijuana Comment: smoked once years ago [facility] 12-12-2024 History of Present illness Narrative POST OP Ace Leonardo : 2000 Recording using PostHelpers software for draft documentation of the visit was discussed with the patient/authorized union representative; all questions welcomed and answered. Patient/authorized union representative agreed to proceed HISTORY: Ace Leonardo is a 24 year old female who presents for umbilical incision site infection She is s/p lap cholecystectomy on 07/30/24. I saw her on 09/03/24 for umbilical incisional pain ordered an US to ensure there was no fluid collection/infection. I saw her on 09/17/24 with more concerns of umbilical incision infection, area was slightly erythematous with very minimal drainage. I treated her with bactrim but she did not take it d/t upset stomach- also did not inform the office of this. She saw Dr. Ferreira on 10/08/24 he completed in office US, continued infection & treated with clindamycin. She returned on 10/22/24 with continued umbilicus incisional pain no further collection of fluid. Dr. Ferreira preformed steroid injection. She was instructed to return to him if she had continued pain in 1 month. Ace presents today for Umbilical Erythematous Patch: - Recurrent erythematous patch with purulent drainage in the umbilical region, onset 3 days ago. - Ace describes the area as pretty painful. - Noted malodorous yellow purulent drainage. - Recent culture swab of the purulent drainage by PCP returned negative results. - No recent swimming or illness. - Previous similar episode treated with clindamycin, which was well-tolerated. - Prior treatment with Bactrim resulted in gastrointestinal upset. ROS Skin: (+) umbilical erythema, (+) umbilical pain, (+) purulent umbilical drainage, (+) malodor PAST MEDICAL HISTORY: PAST MEDICAL HISTORY Diagnosis Date Chronic bilateral low back pain with left-sided sciatica Class 3 severe obesity due to excess calories without serious comorbidity with body mass index (BMI) of 40.0 to 44.9 in adult ([facility]) Gastroesophageal reflux disease, unspecified whether esophagitis present GERD (gastroesophageal reflux disease) Morbid obesity with BMI of 40.0-44.9, adult ([facility]) Obstructive sleep apnea POTS (postural orthostatic tachycardia syndrome) Regurgitation of food Sciatica of left side Spinal stenosis of lumbar region without neurogenic claudication ACTIVE PROBLEM LIST Gastroesophageal Reflux Disease Dizziness Headache Postural Orthostatic Tachycardia Syndrome (Pots) Pre-Op Examination Mirta (Obstructive Sleep Apnea) Bmi 39.0-39.9,Adult Attention-Deficit Hyperactivity Disorder, Unspecified Type Thyroid Nodule Anxiety and Depression Vhd (Valvular Heart Disease) PAST SURGICAL HISTORY Procedure Laterality Date EGD WITH BIOPSY(S) 11/16/2023 Dr. Guo EGD WITH BIOPSY(S) 02/06/2024 Dr. Boone MANOMETRY ESOPHAGEAL 02/06/2024 Dr. Boone PH SMALLS INSERT OFF MEDS 02/06/2024 Dr. Boone REMOVAL GALLBLADDER 07/30/2024 MEDICATIONS: Current Outpatient Medications Medication Sig ergocalciferol 50,000 unit capsule (VITAMIN D2, DRISDOL) Take 50,000 Units by mouth one time a week. cetirizine (ZYRTEC) 10 mg tablet TAKE 1 TABLET BY MOUTH EVERY DAY omeprazole (PRILOSEC) 40 mg capsule Take 40 mg by mouth once daily. dicyclomine (BENTYL) 20 mg tablet Take 20 mg by mouth three times a day. ondansetron orally disintegrating (ZOFRAN ODT) 4 mg disintegrating tablet Take 4 mg by mouth every 8 hours as needed. sertraline (ZOLOFT) 100 mg tablet Take 1 tablet by mouth once daily. traZODone (DESYREL) 50 mg tablet Take 50 mg by mouth at bedtime as needed. For Insomnia (Patient taking differently: Take 100 mg by mouth at bedtime as needed. For Insomnia) vonoprazan (VOQUEZNA) 10 mg tablet Take 10 mg by mouth once daily. QELBREE 200 mg capsule, extended release Take 2 capsules by mouth every afternoon. metoprolol succinate ER (TOPROL XL) 25 mg 24 hr tablet take 1 tablet by mouth every day (Patient taking differently: Take 50 mg by mouth once daily.) L-norgest/e.estradiol-e.estrad (JAIMIESS ORAL) Take 1 tablet by mouth once daily. mecobalamin, vitamin B12, (B12 ACTIVE) 1,000 mcg chew Take 2,000 mcg by mouth once daily. ketotifen fumarate (ZADITOR) 0.025 % (0.035 %) ophthalmic solution Use 1 Drop in both eyes two times a day as needed. No current facility-administered medications for this visit. ALLERGIES: Cyclobenzaprine PHYSICAL EXAMINATION: General: No acute distress. CV: Regular rate and rhythm. Resp: Lungs clear to auscultation bilaterally. Abd: Tenderness to palpation in the umbilical area. Skin: Erythematous patch in the umbilical area without drainage and +malodor. ASSESSMENT AND PLAN: 1. Incisional infection (T81.49XA) - Acute erythematous, painful area with malodor at previous incision site; culture performed by PCP was negative. - Differential includes bacterial infection vs. candidal intertrigo. - Start Keflex 4 times daily for 5 days; instructed to take at least 3 times daily if 4 is not feasible. - Advised to keep area dry and exposed to air as much as possible; avoid tight clothing over site. - Educated on signs of systemic infection (fever, chills, emesis) and to seek emergency care if these develop. - Follow-up next to reassess; if no improvement, will discontinue antibiotic and initiate topical antifungal therapy. Monse Chapin APRN.GRADE RECORDER documented in this encounter [facility] 12-12-2024 Note HNO ID: [id number] Author: MONSE CHAPIN APRN.CNP Service: ? Author Type: Nurse Practitioner Type: Progress Notes Filed: 12/12/2024 11:22 Note Text: POST OP Ace Leonardo : 2000 Recording using PostHelpers software for draft documentation of the visit was discussed with the patient/authorized union representative; all questions welcomed and answered. Patient/authorized union representative agreed to proceed HISTORY: Ace Leonardo is a 24 year old female who presents for umbilical incision site infection She is s/p lap cholecystectomy on 07/30/24. I saw her on 09/03/24 for umbilical incisional pain ordered an US to ensure there was no fluid collection/infection. I saw her on 09/17/24 with more concerns of umbilical incision infection, area was slightly erythematous with very minimal drainage. I treated her with bactrim but she did not take it d/t upset stomach- also did not inform the office of this. She saw Dr. Ferreira on 10/08/24 he completed in office US, continued infection AND treated with clindamycin. She returned on 10/22/24 with continued umbilicus incisional pain no further collection of fluid. Dr. Ferreira preformed steroid injection. She was instructed to return to him if she had continued pain in 1 month. Ace presents today for Umbilical Erythematous Patch: - Recurrent erythematous patch with purulent drainage in the umbilical region, onset 3 days ago. - Ace describes the area as pretty painful. - Noted malodorous yellow purulent drainage. - Recent culture swab of the purulent drainage by PCP returned negative results. - No recent swimming or illness. - Previous similar episode treated with clindamycin, which was well-tolerated. - Prior treatment with Bactrim resulted in gastrointestinal upset. ROS Skin: (+) umbilical erythema, (+) umbilical pain, (+) purulent umbilical drainage, (+) malodor PAST MEDICAL HISTORY: PAST MEDICAL HISTORY Diagnosis Date Chronic bilateral low back pain with left-sided sciatica Class 3 severe obesity due to excess calories without serious comorbidity with body mass index (BMI) of 40.0 to 44.9 in adult ([facility]) Gastroesophageal reflux disease, unspecified whether esophagitis present GERD (gastroesophageal reflux disease) Morbid obesity with BMI of 40.0-44.9, adult ([facility]) Obstructive sleep apnea POTS (postural orthostatic tachycardia syndrome) Regurgitation of food Sciatica of left side Spinal stenosis of lumbar region without neurogenic claudication ACTIVE PROBLEM LIST Gastroesophageal Reflux Disease Dizziness Headache Postural Orthostatic Tachycardia Syndrome (Pots) Pre-Op Examination Mirta (Obstructive Sleep Apnea) Bmi 39.0-39.9,Adult Attention-Deficit Hyperactivity Disorder, Unspecified Type Thyroid Nodule Anxiety and Depression Vhd (Valvular Heart Disease) PAST SURGICAL HISTORY Procedure Laterality Date EGD WITH BIOPSY(S) 11/16/2023 Dr. Guo EGD WITH BIOPSY(S) 02/06/2024 Dr. Boone MANOMETRY ESOPHAGEAL 02/06/2024 Dr. Boone PH SMALLS INSERT OFF MEDS 02/06/2024 Dr. Bonoe REMOVAL GALLBLADDER 07/30/2024 MEDICATIONS: Current Outpatient Medications Medication Sig ergocalciferol 50,000 unit capsule (VITAMIN D2, DRISDOL) Take 50,000 Units by mouth one time a week. cetirizine (ZYRTEC) 10 mg tablet TAKE 1 TABLET BY MOUTH EVERY DAY omeprazole (PRILOSEC) 40 mg capsule Take 40 mg by mouth once daily. dicyclomine (BENTYL) 20 mg tablet Take 20 mg by mouth three times a day. ondansetron orally disintegrating (ZOFRAN ODT) 4 mg disintegrating tablet Take 4 mg by mouth every 8 hours as needed. sertraline (ZOLOFT) 100 mg tablet Take 1 tablet by mouth once daily. traZODone (DESYREL) 50 mg tablet Take 50 mg by mouth at bedtime as needed. For Insomnia (Patient taking differently: Take 100 mg by mouth at bedtime as needed. For Insomnia) vonoprazan (VOQUEZNA) 10 mg tablet Take 10 mg by mouth once daily. QELBREE 200 mg capsule, extended release Take 2 capsules by mouth every afternoon. metoprolol succinate ER (TOPROL XL) 25 mg 24 hr tablet take 1 tablet by mouth every day (Patient taking differently: Take 50 mg by mouth once daily.) L-norgest/e.estradiol-e.estrad (JAIMIESS ORAL) Take 1 tablet by mouth once daily. mecobalamin, vitamin B12, (B12 ACTIVE) 1,000 mcg chew Take 2,000 mcg by mouth once daily. ketotifen fumarate (ZADITOR) 0.025 % (0.035 %) ophthalmic solution Use 1 Drop in both eyes two times a day as needed. No current facility-administered medications for this visit. ALLERGIES: Cyclobenzaprine PHYSICAL EXAMINATION: General: No acute distress. CV: Regular rate and rhythm. Resp: Lungs clear to auscultation bilaterally. Abd: Tenderness to palpation in the umbilical area. Skin: Erythematous patch in the umbilical area without drainage and +malodor. ASSESSMENT AND PLAN: 1. Incisional infection (T81.49XA) - Acute erythematous, painful a (more content not included)... [facility] 10-23-2024 Note HNO ID: [id number] Author: PHILLIP FERREIRA MD Service: ? Author Type: Physician Type: Progress Notes Filed: 10/23/2024 20:33 Note Text: FOLLOW UP VISIT NAME: Ace [facility] NO.: [id number] DATE OF SERVICE: October 22, 2024 : 2000 REFERRING PHYSICIAN: Karthik Lino MD, MD Ace is a patient [...] Blood pressure 120/78, pulse 106, temperature 36.9 ?C (98.4 ?F), temperature source Temporal, resp. rate 12, height [...] 1 month if needed. Phillip Ferreira MD [facility] 10-23-2024 History of Present illness Narrative FOLLOW UP VISIT NAME: Ace Richard [facility] NO.: [id number] DATE OF SERVICE: October 22, 2024 : 2000 REFERRING PHYSICIAN: Karthik Lino MD, Ace is a patient with a complaint [...] Phillip Ferreira MD documented in this encounter [facility] 10-09-2024 Note HNO ID: [id number] Author: PHILLIP FERREIRA MD Service: ? Author Type: Physician Type: Progress Notes Filed: 10/09/2024 06:57 Note Text: FOLLOW UP VISIT NAME: Ace [facility] NO.: [id number] DATE OF SERVICE: 10/08/2024 : 2000 REFERRING PHYSICIAN: Karthik Lino MD, MD Ace is a patient [...] me in 2 weeks. [address] Ferreira MD [facility] 10-09-2024 History of Present illness Narrative FOLLOW UP VISIT NAME: Ace Leonardo [facility] NO.: [id number] DATE OF SERVICE: 10/08/2024 : 2000 REFERRING PHYSICIAN: Karthik Lino MD, Ace is a patient with a complaint [...] Phillip Ferreira MD documented in this encounter [facility] 09-25-2024 Telephone encounter Note Prescription Refill Information [...] RACIEL Su September 25, 2024 10:55 AM [facility] 09-25-2024 Miscellaneous Notes Prescription Refill Information The [...] 2024 10:55 AM documented in this encounter [facility] 09-17-2024 Note HNO ID: [id number] Author: MONSE CHAPIN APRN.GIOVANNA Service: ? Author Type: Nurse Practitioner Type: Progress Notes Filed: 09/17/2024 14:25 Note Text: This note was created using Opiatalk. Recording using PostHelpers software for draft documentation of the visit was discussed with the patient/authorized union representative; all questions welcomed and answered. Patient/authorized union representative agreed to proceed Subjective Ace is [...] 800 MG-TRIMETHOPRIM 160 MG TABLET Monse Chapin APRN.CNP [facility] 09-17-2024 History of Present illness Narrative This note was created using Opiatalk. Recording using PostHelpers software for draft documentation of the visit was discussed with the patient/authorized union representative; all questions welcomed and answered. Patient/authorized union representative agreed to proceed Subjective Ace is [...] 800 MG-TRIMETHOPRIM 160 MG TABLET Monse Chapin APRN.GRADE RECORDER documented in this encounter [facility] 09-09-2024 Telephone encounter Note Message routed to provider to advise. Thank you [facility] 09-09-2024 Miscellaneous Notes Message routed to provider to advise. Thank you documented in this encounter [facility] 09-04-2024 Note HNO ID: [id number] Author: AIMEE AKHTAR RDMS Service: ? Author Type: Director E Learning Type: Progress Notes Filed: 09/04/2024 11:49 Note [...] PATIENT PRESENTS WITH AN IMPLANTABLE OR ATTACHED DIRECTOR PROPERTY: No RADIOLOGY DEPARTMENT: Ultrasound PERIPHERAL IV DATA: Not applicable SIGNED BY: Aimee Akhtar RDMS September 04, 2024 11:[address] [facility] 09-03-2024 Note HNO ID: [id number] Author: MONSE CHAPIN APRN.GIOVANNA Service: ? Author Type: Nurse Practitioner Type: Progress Notes Filed: 09/03/2024 09:57 Note Text: Ace is a patient I am following s/p lap matty on 07/30/[address] Guo. I saw [...] as needed for worsening/no improvement. Monse Chapin APRN.GRADE RECORDER [facility] 08-12-2024 Telephone encounter Note Letter printed for return to work with restrictions and placed at front edger for patient pickup. Phone call placed to patient informing of letter and restrictions. [facility] 08-12-2024 Miscellaneous Notes Letter printed for return to work with restrictions and placed at front edger for patient pickup. Phone call placed to patient informing of letter and restrictions. Patient phones to request her return to work date be moved to this wed 08/13/2024. Patient reports intermittent dark urine today. Please advise. Brandie Nielson MA documented in this encounter [facility] 08-11-2024 Telephone encounter Note Patient phones to request her return to work date be moved to this sun08/13/2024. Patient reports intermittent dark urine today. Please advise. Brandie Nielson MA [facility] 08-08-2024 Note HNO ID: [id number] Author: MONSE CHAPIN APRN.GRADE RECORDER Service: ? Author Type: Nurse Practitioner Type: [...] or concerns that may arise. Follow up: KAJAL Chapin APRN.[facility] 08-05-2024 Note HNO ID: [id number] Author: LAUREN GUO MD Service: ? Author Type: Physician [...] following up with Stephanie Chapin this Sunday. [facility] 08-05-2024 History of Present illness Narrative Subjective: [...] Chapin this Sunday. documented in this encounter [facility] 08-04-2024 Telephone encounter Note Post op appt made to see Dr Guo tomorrow due to purulent umbilical drainage . Encounter closed. [facility] 08-04-2024 Miscellaneous Notes Post op appt made [...] for pain. Please advise. Daisha Donovan LPN Patient called again asking for an [...] Rox Ruiz RN Patient called in s/p glenda starr on 07/30/2024. She reports pain 7/10. She gets some relief from percocet use for about 2 hours. Last dose today was at 0800. She is also taking naproxen without any relief. She would like to speak with nurse from the office. Please contact the patient back at [phone]. documented in this encounter [facility] 08-04-2024 Telephone encounter Note Patient called into [...] for pain. Please advise. Daisha Donovan LPN [facility] Work Phone: 07-31-2024 Telephone encounter Note Patient called again asking for an update on message. Rox Ruiz RN [facility] 07-31-2024 Telephone encounter Note Patient called back again reporting continued pain with minimal relief from Percocet. Patient encouraged to get up and walk. Educated patient on gas pains. Patient also informed that gasx may help. Patient informed that if her pain is increasing and if she is having concerns to go the ED for evaluation if needed. Rox Ruiz RN [facility] 07-31-2024 Telephone encounter Note Patient called in s/p lap matty on 07/30/2024. She reports pain 7/10. She gets some relief from percocet use for about 2 hours. Last dose today was at 0800. She is also taking naproxen without any relief. She would like to speak with nurse from the office. Please contact the patient back at [phone]. T [facility] 07-30-2024 Note HNO ID: [id number] Author: ?, ?, ? Service: Pharmacy Author Type: ? Type: Plan of Care Filed: 07/30/2024 13:42 Note Text: PHARMACY BEDSIDE DELIVERY SERVICE Patient Name: Ace Leonardo The marked outpatient medications were Filled at: [place] and delivered to the patient's bedside to [...] dicyclomine 20 mg tablet Commonly known as: LAURA GERONIMO ORAL ketotifen fumarate 0.025 % (0.035 %) [...] your Primary Care Provider. Miranda Jim PAGER: [phone] July 30, 2024 1:41 PM 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 07-28-2024 Telephone encounter Note FMLA paperwork filled out, scanned in epic, and placed at front edger for pickup, Pt contacted by phone and verbalized understanding.Vera Nicholson RN [facility] 07-28-2024 Miscellaneous Notes FMLA paperwork filled out, scanned in epic, and placed at front edger for pickup, Pt contacted by phone and verbalized understanding.Vera Nicholson RN documented in this encounter [facility] 07-24-2024 Telephone encounter Note Call received from [...] if there might be another antiemetic Dr. uGo would be willing to send into her local pharmacy for her to try. Please review and advise. Pt prefers a phone call back. Kurtis Agudelo RN July 24, 2024 3:33 PM [facility] 07-24-2024 Miscellaneous Notes Call received from Pt [...] advise. Pt prefers a phone call back. Kurtis Agudelo RN July 24, 2024 3:33 PM documented in this encounter [facility] 07-24-2024 Telephone encounter Note Call received from Pt - name & verified. Pt questioning if Dr. Guo had a chance to review her question re: open vs. lap matty that she had called about yesterday. Reassured Pt that it had been forwarded to the surgeon, and we would be in touch with her upon his review and recommendations. She voices understanding. Kurtis Agudelo RN July 24, 2024 3:28 PM [facility] 07-24-2024 Miscellaneous Notes Call received from Pt - name & verified. Pt questioning if Dr. Guo had a chance to review her question re: open vs. lap matty that she had called about yesterday. Reassured Pt that it had been forwarded to the surgeon, and we would be in touch with her upon his review and recommendations. She voices understanding. Kurtis Agudelo RN July 24, 2024 3:28 PM [...] Deana Pineda LPN documented in this encounter [facility] 07-24-2024 History and physical note Images from the original note were not included. [facility] HISTORY AND PHYSICAL EXAMINATION SERVICE DATE: 07/24/2024 SERVICE TIME: 9:46 AM PRIMARY CARE PHYSICIAN: Karthik Lino MD, MD Assessment Patient has the following medical conditions which may affect nanci-operative course: Postural orthostatic tachycardia syndrome (POTS) Assessment: [...] valve, most recent cardiac records requested from [facility] ANESTHESIA FINDINGS: Intubation History: No history of [...] or younger Non-male patient STOP-Bang Score: 4 [id number] Score: Age: <65 Sex: female CHF history: No Hypertension history: No Stroke/TIA/thromboembolism history: No Vascular disease history: No Diabetes history: No [id number] Score: 1 ARISCAT Score: Age: <=50 Preoperative [...] OPEN (N/A) at the request of Dr. Lauren Guo for consultation. My final recommendation will [...] surgery because of biliary dyskinesia. 07/22/2024, Dr. Lauren Guo HPI: Ace is a 23 year [...] me today at the request of Dr. Karthik Lino MD, MD for my opinion and advice regarding Biliary dyskinesia (primary encounter diagnosis) Ruq abdominal pain. REVIEW OF SYSTEMS: General: No weight loss, malaise or fevers. Neurological: No history of TIA's, stroke, PRIVATE SECRETARY tumor, impaired sensorium, hemiplegia, paraplegia or quadraplegia. [...] congenital heart defect, DVT/PE, hyperlipidemia, hypertension, recent IA, PTCA, PVD, open heart surgery and valve surgery. GI: See HPI. Positive for: dysphagia (dry solids) and GERD (on rx) Negative for: abdominal pain, esophageal stricture, hepatitis, irritable bowel syndrome, inflammatory bowel disease, liver disease, nausea, pancreatitis and vomiting. : No history of dysuria, frequency or incontinence, stones or chronic kidney disease. No difficulty urinating, nocturia > 1 time per night or hematuria. COUNSELING PROGRAM LEADER: Negative for abnormal vaginal bleeding, abnormal vaginal [...] (BMI) of 40.0 to 44.9 in adult ([facility]) Gastroesophageal reflux disease, unspecified whether esophagitis present GERD (gastroesophageal reflux disease) Morbid obesity with BMI of 40.0-44.9, adult ([facility]) Obstructive sleep apnea POTS (postural orthostatic [...] or any previous visit (from the past 23851 hours). Instructions Given to Patient: Instructions located in the after visit summary. Patient given verbal and written preop instructions and voices comprehension and compliance. SIGNATURE: Margo Johnson APRN.CNP PATIENT NAME: Ace Leonardo DATE: July 24, 2024 TIME: 9:14 AM PAGER/CONTACT #: [facility] 07-24-2024 History and physical note Images from the original note were not included. [facility] HISTORY AND PHYSICAL EXAMINATION SERVICE DATE: 07/24/2024 SERVICE TIME: 9:46 AM PRIMARY CARE PHYSICIAN: Karthik Lino MD, MD Assessment Patient has the following medical conditions which may affect nanci-operative course: Postural orthostatic tachycardia syndrome (POTS) Assessment: controlled on rx, following [facility] neurology last OV 03/18/2024, last [...] valve, most recent cardiac records requested from [facility] ANESTHESIA FINDINGS: Intubation History: No history of [...] or younger Non-male patient STOP-Bang Score: 4 [id number] Score: Age: <65 Sex: female CHF history: No Hypertension history: No Stroke/TIA/thromboembolism history: No Vascular disease history: No Diabetes history: No [id number] Score: 1 ARISCAT Score: Age: <=50 Preoperative [...] OPEN (N/A) at the request of Dr. Lauren Guo for consultation. My final recommendation will be communicated back to the requesting physician by way of shared medical record or letter. Subjective The patient has the following: COVID-19 Immunization Status Current Care Gaps Covid-19 Vaccine () Overdue since 12/16/2023 09/21/2020 Imm Admin: COVID-19 original vaccine, age 12+ yr, monovalent (EcoSynthetix-BIONTECH - PURPLE TOP) 08/31/2020 Imm Admin: COVID-19 original vaccine, age 12+ yr, monovalent (PFIZER-BIONTECH - PURPLE TOP) CHIEF COMPLAINT: Pre-op exam HPI: Ace Leonardo is a 23 year old seen for PAC due to scheduled above surgery because of biliary dyskinesia. 07/22/2024, Dr. Lauren Guo HPI: Ace is a 23 year [...] me today at the request of Dr. Karthik Lino MD, MD for my opinion and advice regarding Biliary dyskinesia (primary encounter diagnosis) Ruq abdominal pain. REVIEW OF SYSTEMS: General: No weight loss, malaise or fevers. Neurological: No history of TIA's, stroke, PRIVATE SECRETARY tumor, impaired sensorium, hemiplegia, paraplegia or quadraplegia. [...] congenital heart defect, DVT/PE, hyperlipidemia, hypertension, recent IA, PTCA, PVD, open heart surgery and valve surgery. GI: See HPI. Positive for: dysphagia (dry solids) and GERD (on rx) Negative for: abdominal pain, esophageal stricture, hepatitis, irritable bowel syndrome, inflammatory bowel disease, liver disease, nausea, pancreatitis and vomiting. : No history of dysuria, frequency or incontinence, stones or chronic kidney disease. No difficulty urinating, nocturia > 1 time per night or hematuria. COUNSELING PROGRAM LEADER: Negative for abnormal vaginal bleeding, abnormal vaginal [...] (BMI) of 40.0 to 44.9 in adult ([facility]) Gastroesophageal reflux disease, unspecified whether esophagitis present GERD (gastroesophageal reflux disease) Morbid obesity with BMI of 40.0-44.9, adult ([facility]) Obstructive sleep apnea POTS (postural orthostatic [...] or any previous visit (from the past 75676 hours). Instructions Given to Patient: Instructions located in the after visit summary. Patient given verbal and written preop instructions and voices comprehension and compliance. SIGNATURE: Margo Johnson APRN.CNP PATIENT NAME: Ace Leonardo DATE: July 24, 2024 TIME: 9:14 AM PAGER/CONTACT #: documented in this encounter [facility] 07-24-2024 Instructions Margo Johnson APRN.CNP - 07/24/2024 9:14 AM EDT Images from the original note were not included. [facility] PATIENT PREOPERATIVE INSTRUCTIONS Lauren Guo MD has scheduled you for your procedure at this surgery center: [facility]: [phone] -- [address] [address]. Please read below carefully for your personalized [...] office. If you are currently using a nnyh-ksw-suhz injectable or oral medication for diabetes or [...] Procedures: - YOU MUST HAVE A RESPONSIBLE PROMOTIONS ASSISTANT SALES MARKETING TAKE YOU HOME. A LEAK DETECTOR OR ALBACORE FISHING BOAT CREWMAN CANNOT BE MADE A RESPONSIBLE PROMOTIONS ASSISTANT SALES MARKETING. - We recommend that a responsible person [...] Advance Directive, please fax a copy to [phone] or email to for it to be [...] and scanned into your chart that day. Margo Johnson APRN.GIOVANNA documented in this encounter [facility] 07-23-2024 Telephone encounter Note Patient calling in [...] it back by Sunday. Deana Pineda LPN [facility] 07-22-2024 Miscellaneous Notes rescheduled to 07-30-2024 Patient calling and inquiring on moving up her surgery date if possible? She is scheduled to go on a vacation in August. Shefali Richter LPN documented in this encounter [facility] 07-22-2024 Telephone encounter Note rescheduled to 07-30-2024 [facility] 07-22-2024 Telephone encounter Note Patient calling and inquiring on moving up her surgery date if possible? She is scheduled to go on a vacation in August. Shefali Richter LPN [facility] 07-22-2024 Telephone encounter Note 09-03-2024 glenda matty [facility] 07-22-2024 Miscellaneous Notes 09-03-2024 glenda matty documented in this encounter [facility] 07-22-2024 Note HNO ID: [id number] Author: LAUREN GUO MD Service: ? Author Type: Physician Type: Progress Notes Filed: 07/22/2024 10:45 Note Text: HISTORY AND PHYSICAL Ace Leonardo 2000 REFERRING PHYSICIAN: Karthik Lino MD, MD CHIEF COMPLAINT: Consult (hernia) [...] me today at the request of Dr. Karthik Lino MD, MD for my opinion and [...] SENSIMIST) 27.5 mcg/actuation nasal spray Use 1 Cypress in each nostril two times a day. [...] tender in th (more content not included)... [facility] 07-22-2024 History of Present illness Narrative HISTORY AND PHYSICAL Ace Leonardo 2000 REFERRING PHYSICIAN: Karthik Lino MD, MD CHIEF COMPLAINT: Consult (hernia) [...] me today at the request of Dr. Karthik Lino MD, MD for my opinion and [...] SENSIMIST) 27.5 mcg/actuation nasal spray Use 1 Cypress in each nostril two times a day. [...] Procedure: LAPAROSCOPIC CHOLECYSTECTOMY WITHOUT INTRAOPERATIVE CHOLEANGIOGRAM - [id number] Planned antibiotic: Ancef 2gm IVPB diabetes education coordinator to OR SCDs needed - Yes Green Inspector Needed - Yes Diagnoses: (K82.8) Biliary dyskinesia (primary encounter diagnosis) (R10.11) RUQ abdominal pain A letter was sent to Dr. Karthik Lino MD, MD indicating the above finding for this patient. Lauren Guo III, MD documented in this encounter [facility] 07-21-2024 Telephone encounter Note Nurse called back and states they do not have any documentation on file for a hernia. Deana Pineda LPN [facility] 07-21-2024 Miscellaneous Notes Nurse called back and states they do not have any documentation on file for a hernia. Deana Pineda LPN Called [facility] and spoke with Nurse Arlene, to request office notes indicating patient with hernia. Per Arlene they have office visit notes that are not completed but what she is seeing nothing indicative of hernia. nurse Arlene, states she will contact provider at their office to see if she is missing something as well and will call back. Kelechi Neil LPN documented in this encounter [facility] 07-20-2024 Note [facility] 07-18-2024 Telephone encounter Note Called [facility] and spoke with Nurse Arlene, to request office notes indicating patient with hernia. Per Arlene they have office visit notes that are not completed but what she is seeing nothing indicative of hernia. Arlene, nurse, states she will contact provider at their office to see if she is missing something as well and will call back. Kelechi Neil LPN [facility] 06-02-2024 History of Present illness Narrative Radiology Service Progress Note PATIENT NAME: Ace eLonardo DATE OF SERVICE: June 02, 2024 TIME: [...] PATIENT PRESENTS WITH AN IMPLANTABLE OR ATTACHED DIRECTOR PROPERTY: No RADIOLOGY DEPARTMENT: General X-ray: Exam(s) Completed: Spine X-Ray(s): Lumbar AP / LAT / L5-S1 PERIPHERAL IV DATA: Not applicable SIGNED BY: USHA Pina) June 02, 2024 11:54 AM documented in this encounter [facility] 06-02-2024 Note HNO ID: [id number] Author: JONATAN NOBLE RT(R) Service: Radiology Author [...] PATIENT PRESENTS WITH AN IMPLANTABLE OR ATTACHED DIRECTOR PROPERTY: No RADIOLOGY DEPARTMENT: General X-ray: Exam(s) Completed: Spine X-Ray(s): Lumbar AP / LAT / L5-S1 PERIPHERAL IV DATA: Not applicable SIGNED BY: RT Silvana(R) June 02, 2024 11:[address] [facility] 06-02-2024 Note HNO ID: [id number] Author: MICHELLE HANCOCK PA-C Service: ? Author Type: Physician Green Inspector Type: Progress Notes Filed: 06/02/2024 12:32 Note Text: This note was created using Roomtagriter. Subjective Ace Leonardo is a 23 year [...] ICD9: E812.9, ICD10: V87.7XXA Michelle Hancock PA-C [facility] 06-02-2024 History of Present illness Narrative This note was created using Roomtagriter. Subjective Ace Leonardo is a 23 year [...] encounter - ICD9: E812.9, ICD10: V87.7XXA Michelle Clutter, PA-C documented in this encounter [facility] 04-04-2024 Note HNO ID: [id number] Author: ?, ?, ? Service: ? Author Type: ? Type: Progress Notes Filed: 04/04/2024 15:08 Note Text: Date: April 04, 2024 Name: Ace Leonardo Comments: HST was returned in working order with all sleep questionnaires Aleksandra Bueno [facility] 04-04-2024 History of Present illness Narrative Date: April 04, 2024 Name: Ace Leonardo Comments: HST was returned in working order with all sleep questionnaires Aleksandra Bueno Nomad # [id number] , +GPS Date shipped out: SENT FEDEX DELIVERY - FEDEX RETURN Tracking mailout: [id number] Tracking return: [id number] [id number] March 24, 2024 Standing PSG Orders signed in the last 90 days None Future PSG Orders signed in the last 90 days Ordered Auth. provider HOME SLEEP APNEA TEST (HSAT) [[id number]] 03/18/24 Hemalatha Anthony PA-C Assoc. diagnoses: Obstructive [...] Morbid obesity with BMI of 40.0-44.9, adult ([facility]) The medical record was reviewed to determine [...] (HSAT) Special instructions: None-follow laboratory protocol Elizabeth Tubbsamaury [employer] [facility] Staff Note: I have read the above protocol, edited as needed, and agree to the plan. Genevieve Killian III, PhD 11:16 AM, 03/24/2024 March 24, 2024 An order has been received for Home Sleep Apnea Test (HSAT) from Hemalatha Courtney a B. [facility] Staff. Visit prep complete. Comments :No The sleep study is scheduled for 03/25/24. Insurance: [facility] / Plan: [place] [employer] F[employer] INSURED / Product Type: PPO / Payer/Plan Subscr Sex Relation Sub. Ins. ID Effective Group Num 1. [facility]* ACE LEONARDO 01 Female Self [id number] [birth year] [id number] [address] 2. [facility]* SHERIN LEONARDO 04/14/1981 Male Child [id number] [birth year] [id number] [address] [address] Varun Laguerre documented in this encounter [facility] 03-24-2024 Note HNO ID: [id number] Author: ?, ?, ? Service: ? Author Type: ? Type: Progress Notes Filed: 04/04/2024 15:08 Note Text: Nomad # [id number] , +GPS Date shipped out: SENT FEDEX DELIVERY - FEDEX RETURN Tracking mailout: [id number] Tracking return: [id number] [facility] 03-24-2024 Note HNO ID: [id number] Author: GENEVIEVE KILLIAN III, PhD Service: ? Author Type: Physician Type: Progress Notes Filed: 04/04/2024 15:08 Note Text: March 24, 2024 Standing PSG Orders signed in the last 90 days None Future PSG Orders signed in the last 90 days Ordered Auth. provider HOME SLEEP APNEA TEST (HSAT) [[id number]] 03/18/24 Hemalatha Anthony PA-C Assoc. diagnoses: Obstructive [...] Genevieve Killian III, PhD 11:16 AM, 03/24/2024 [facility] 03-24-2024 Note HNO ID: [id number] Author: ?, ?, ? Service: ? Author Type: ? Type: Progress Notes Filed: 04/04/2024 15:08 Note Text: March 24, 2024 An order has been received for Home Sleep Apnea Test (HSAT) from Hemalatha Courtney a B. [facility] Staff. Visit prep complete. Comments :No The sleep study is scheduled for 03/25/24. Insurance: Payor: [facility] / Plan: [place] [employer] INSURED / Product Type: PPO / Payer/Plan Subscr Sex Relation Sub. Ins. ID Effective Group Num 1. [facility]* JOVITAMARCOSPHYLLISACE 01 Female Self [id number] [birth year] [id number] [address] 2. [facility]* JOVITAMARCOSSHERIN FERGUSON 04/14/1981 Male Child [id number] [birth year] [id number] [address] [address] Curt[facility]ena [facility] 03-18-2024 Instructions Hemalatha Anthony PA-C - [...] in 6 months documented in this encounter [facility] 03-18-2024 Note HNO ID: [id number] Author: HEMALATHA ANTHONY PA-C Service: ? Author Type: Physician Green Inspector Type: Progress Notes Filed: 03/18/2024 10:38 Note [...] Patient presents for follow-up. Notes that her windows deployment technician increased her metoprolol to 50 mg and [...] psychosocial stressors. HEMATOLOGI (more content not included)... [facility] 03-18-2024 History of Present illness Narrative ESTABLISHED [...] Patient presents for follow-up. Notes that her windows deployment technician increased her metoprolol to 50 mg and [...] SENSIMIST) 27.5 mcg/actuation nasal spray Use 1 Cypress in each nostril two times a day. [...] Morbid obesity with BMI of 40.0-44.9, adult ([facility]) FAMILY HISTORY Problem Relation Age of [...] dysarthria; comprehension, naming, repetition intact. Short and group home memory intact. CN: PERRL, EOMI and without [...] increasing metoprolol to 50 mg through her windows deployment technician. Notes good water intake and physical exercise. [...] which included preparing to see the patient, [id number] patient care, completing clinical documentation, obtaining and/or [...] and warrants attention documented in this encounter [facility] 03-04-2024 Note HNO ID: [id number] Author: LAUREN GUO MD Service: ? Author Type: Physician Type: Progress Notes Filed: 03/04/2024 12:26 Note Text: Subjective: Patient is back after an EGD with 48-hour pH probe and esophageal manometry. Her DeMeester score from her 48-hour pH probe was 10.6 which is within the normal range. Her esophageal motility study showed no signs of dysmotility and no Hendrix classification's of any abnormalities. Objective:There were no vitals taken for this visit. Abdomen is obese and soft Assessment:Gastroesophageal reflux disease, unspecified whether esophagitis present (primary encounter diagnosis) Regurgitation of food Class 3 severe obesity due to excess calories without serious comorbidity with body mass index (bmi) of 40.0 to 44.9 in adult ([facility]) Plan: Unfortunately there is no surgical interventions that I can be performed on her given her current test. Probably should reach out in see if gastric bypass might be of benefit. [facility] 03-04-2024 History of Present illness Narrative Subjective: Patient is back after an EGD with 48-hour pH probe and esophageal manometry. Her DeMeester score from her 48-hour pH probe was 10.6 which is within the normal range. Her esophageal motility study showed no signs of dysmotility and no Hendrix classification's of any abnormalities. Objective:There were no [...] be of benefit. documented in this encounter [facility] 02-14-2024 Telephone encounter Note Prescription Refill Information [...] RACIEL Su February 14, 2024 11:23 AM [facility] 02-14-2024 Miscellaneous Notes Prescription Refill Information [...] 2024 11:23 AM documented in this encounter [facility] 02-12-2024 Note Addended by: DEANA TOMPKINS on: 02/12/2024 11:32 AM Modules accepted: Orders [facility] 02-12-2024 Miscellaneous Notes Addended by: DEANA TOMPKINS on: 02/12/2024 11:32 AM Modules accepted: Orders documented in this encounter [facility] 02-12-2024 Note HNO ID: [id number] Author: DEANA TOMPKINS APRN.CNP Service: ? Author Type: Nurse Practitioner Type: Progress Notes Filed: 02/12/2024 11:24 Note Text: This note was created using Roomtagriter. Subjective Ace Leonardo is a 23 year old female. 23 year old female with no significant PMH presents for illness. Acute onset yesterday +headache +sore throat +nausea +congestion +body aches +diarrhea Denies cough Denies CP Utilized x 2 OTC cold medicine Tea with honey Cough drops Denies tobacco usage. The history is provided by the patient. No computer language coder was used. Sore Throat This is a [...] SENSIMIST) 27.5 mcg/actuation nasal spray Use 1 Cypress in each nostril two times a day. [...] injury. Normal ran (more content not included)... [facility] 02-12-2024 History of Present illness Narrative This note was created using Roomtagriter. Subjective Ace Leonardo is a 23 year old female. 23 year old female with no significant PMH presents for illness. Acute onset yesterday +headache +sore throat +nausea +congestion +body aches +diarrhea Denies cough Denies CP Utilized x 2 OTC cold medicine Tea with honey Cough drops Denies tobacco usage. The history is provided by the patient. No computer language coder was used. Sore Throat This is a [...] SURGICAL HISTORY Procedure Laterality Date EGD W/O [facility] SPEC VARICIES INJ 11/16/2023 ALLERGIES Patient has [...] SENSIMIST) 27.5 mcg/actuation nasal spray Use 1 Cypress in each nostril two times a day. [...] Deana Tompkins APRN.GIOVANNA documented in this encounter [facility] 02-07-2024 Telephone encounter Note Patient sent a diaDexust message about the [employer] cloth reeler so I called her for more information. Ace said that the cloth reeler has disconnected about 5 times since last night, even though it is sitting on my lap. It does reconnect. Patient states the red light flashes and it beeps when it is disconnected but it will reconnect itself. Currently the cloth reeler is connected. Patient is using the lanyard or keeping the cloth reeler in her lap. Patient states she can feel the Smalls capsule in her throat. I asked the patient to try to ride it out until tomorrow afternoon, when the test should be completed, as I believe the cloth reeler is still working. I did tell her that if the cloth reeler starts beeping continuously then put it in another room or her car so it does not keep her awake overnight. Patient agreed with the plan. I gave the patient my contact information. Remigio Villar RN [facility] 02-07-2024 Miscellaneous Notes Patient sent a JumpCam message about the Smalls cloth reeler so I called her for more information. Ace said that the cloth reeler has disconnected about 5 times since last night, even though it is sitting on my lap. It does reconnect. Patient states the red light flashes and it beeps when it is disconnected but it will reconnect itself. Currently the cloth reeler is connected. Patient is using the lanyard or keeping the cloth reeler in her lap. Patient states she can feel the Smalls capsule in her throat. I asked the patient to try to ride it out until tomorrow afternoon, when the test should be completed, as I believe the cloth reeler is still working. I did tell her that if the cloth reeler starts beeping continuously then put it in another room or her car so it does not keep her awake overnight. Patient agreed with the plan. I gave the patient my contact information. Remigio Villar RN documented in this encounter [facility] 02-06-2024 Nurse Note This patient was [...] bleeding. This patient tolerated this procedure well. [facility] 02-06-2024 Nurse Note This patient was [...] this procedure well. documented in this encounter [facility] 02-06-2024 History and physical note HISTORY AND PHYSICAL EXAMINATION SERVICE DATE: 02/06/2024 SERVICE TIME: 11:45 AM PRIMARY CARE PHYSICIAN: Karthik Lino MD, MD REASON FOR VISIT: The [...] SURGICAL HISTORY Procedure Laterality Date EGD W/O [facility] SPEC VARICIES INJ 11/16/2023 FAMILY HISTORY Problem [...] SENSIMIST) 27.5 mcg/actuation nasal spray Use 1 Cypress in each nostril two times a day. [...] the following medical conditions which may affect nanci-operative course Pre-Op Exam: see note for medical conditions which may affect nanci-operative course that were addressed at today's visit. [...] which included preparing to see the patient, bnkl-or-moal patient care, completing clinical documentation, and performing a medically appropriate examination. Instructions Given to Patient: Patient given verbal preop instructions and voices comprehension and compliance. SIGNATURE: Karly Magaña APRN.CNP PATIENT NAME: Ace Leonardo DATE: February 06, 2024 TIME: 11:21 AM PAGER/CONTACT #: [facility] 02-06-2024 History and physical note HISTORY AND PHYSICAL EXAMINATION SERVICE DATE: 02/06/2024 SERVICE TIME: 11:45 AM PRIMARY CARE PHYSICIAN: Karthik Lino MD, MD REASON FOR VISIT: The [...] SURGICAL HISTORY Procedure Laterality Date EGD W/O [facility] SPEC VARICIES INJ 11/16/2023 FAMILY HISTORY Problem [...] SENSIMIST) 27.5 mcg/actuation nasal spray Use 1 Cypress in each nostril two times a day. [...] the following medical conditions which may affect nanci-operative course Pre-Op Exam: see note for medical conditions which may affect nanci-operative course that were addressed at today's visit. [...] which included preparing to see the patient, nbmq-kf-vqvc patient care, completing clinical documentation, and performing a medically appropriate examination. Instructions Given to Patient: Patient given verbal preop instructions and voices comprehension and compliance. SIGNATURE: Karly Magaña APRN.CNP PATIENT NAME: Ace Leonardo DATE: February 06, 2024 TIME: 11:21 AM PAGER/CONTACT #: documented in this encounter [facility] 01-30-2024 Note HNO ID: [id number] Author: REMIGIO VILLAR RN Service: ? Author [...] SURGICAL HISTORY Procedure Laterality Date EGD W/O [facility] SPEC VARICIES INJ 11/16/2023 Social History Tobacco [...] SENSIMIST) 27.5 mcg/actuation nasal spray Use 1 Cypress in each nostril two times a day. [...] 40.0 to 44.9 in adult ([facility]) Plan: ASSESSMENT/PLAN: 1. Gastroesophageal reflux [...] (BMI) of 40.0 to 44.9 in adult ([facility]) - ICD9: 278.01, V85.41, ICD10: E66.813, E66.01, Z68.41 Stable Medical Decision Making: Problems: Moderate: New problem with uncertain prognosis Data: Unique test(s) ordered: 3+ Risk: Low: Low risk from testing/treatment Medical Decision Making Level: 4 - Moderate Patric Boone M.D., F.A.C.S. documented in this encounter [facility] 01-30-2024 Instructions Patric Boone MD - 01/30/2024 9:45 AM EDT Thank you for coming to see me today. It is my pleasure to take care of you. If you have any questions regarding your visit, please don't hesitate to contact us. documented in this encounter [facility] 01-30-2024 Note HNO ID: [id number] Author: PATRIC BOONE MD Service: ? Author Type: Physician [...] SURGICAL HISTORY Procedure Laterality Date EGD W/O [facility] SPEC VARICIES INJ 11/16/2023 Social History Tobacco [...] SENSIMIST) 27.5 mcg/actuation nasal spray Use 1 Cypress in each nostril two times a day. [...] 40.0 to 44.9 in adult ([facility]) Plan: ASSESSMENT/PLAN: 1. Gastroesophageal reflux [...] Medical Decision Making Level: 4 - Moderate Patric Boone M.D., F.A.C.S. [facility] 01-03-2024 History of Present illness Narrative Subjective: [...] these are done. documented in this encounter [facility] 12-31-2023 Telephone encounter Note Per Dr. Guo patient to have esophageal manometry & a 48 hr PH probe. Email sent to Remigio Villar to have their office review and call patient. Patient aware their office will call to schedule. Patient then to follow back up with Richardson's office after appointments are done Marisa Martinez Blow Mold Technician [facility] 12-31-[address] Guo patient to have esophageal manometry & a 48 hr PH probe. Email sent to Remigio Villar to have their office review and call patient. Patient aware their office will call to schedule. Patient then to follow back up with Richardson's office after appointments are done Marisa Martinez Blow Mold Technician documented in this encounter [facility] 12-31-2023 Telephone encounter Note Prescription Refill [...] RACIEL Su December 31, 2023 10:34 AM [facility] 12-31-2023 Miscellaneous Notes Prescription Refill Information [...] 2023 10:34 AM documented in this encounter [facility] 11-19-2023 Telephone encounter Note Contacted Ace with the Recommendations below. She stated the pain was the same as it was in the ED. I recommended if the pain gets worse, or doesn't go away to be reevaluated in the ED. She voiced understanding and had no further questions.Vera Nicholson RN [facility] 11-19-2023 Miscellaneous Notes Contacted Ace with [...] over the weekend. She was evaluated at [facility] ER and given medication for nausea and discharged to home. She is wondering if there is anything she should be doing for pain? Denies emesis or cough/hemoptysis. Reports the pain interferes with sleep. She would like a work excuse for today if possible. Patient can be reached at [phone] Shefali Richter LPN documented in this encounter [facility] 11-19-2023 Telephone encounter Note Patient calling and reports she has had constant aching pain in her lower abdomen since EGD. Occasionally sharp depending on activity and had signifcant nausea over the weekend. She was evaluated at [facility] ER and given medication for nausea and discharged to home. She is wondering if there is anything she should be doing for pain? Denies emesis or cough/hemoptysis. Reports the pain interferes with sleep. She would like a work excuse for today if possible. Patient can be reached at [phone] Shefali Richter LPN [facility] 11-18-2023 History of Present illness Narrative Nontoxic-appearing female presents urgent care chief complaint esophageal and abdominal pain. Duration of symptoms yesterday. Associated symptoms listed above. Patient states on November 15 she had a EGD. States pain was so severe last night it kept her up. Patient rates pain 7-8 out of 10. EGD was performed in the [facility] ED. Recommended patient return to [facility] emergency room. Patient states she will be seen at [facility]. Verbalized understanding agrees with plan of care. Jerome Allen APRN.GIOVANNA documented in this encounter [facility] 11-16-2023 History and physical note HISTORY AND PHYSICAL Ace Richard Ralph : 2000 REFERRING PHYSICIAN: SELF CHIEF COMPLAINT: [...] had a gastric emptying study done at [facility] on May that was normal. Patient [...] SENSIMIST) 27.5 mcg/actuation nasal spray Use 1 Cypress in each nostril two times a day. [...] entered by the nurse and reviewed by in Nursing Notes: Shefali Richter LPN 09/21/2023 8:37 AM Signed REVIEW [...] last Mammogram screening? N/A Last Colonoscopy: N/A Shefali Richter LPN PHYSICAL EXAMINATION: General: The patient [...] whether esophagitis present (primary encounter diagnosis) Monse ChapinSENG UPDATED HISTORY AND PHYSICAL EXAMINATION SERVICE DATE: [...] can be found in the attached. SIGNATURE: Lauren Guo III, MD PATIENT NAME: Ace Leonardo DATE: November 16, 2023 TIME: 11:07 AM [facility] 11-16-2023 History and physical note HISTORY [...] had a gastric emptying study done at [facility] on May that was normal. Patient [...] SENSIMIST) 27.5 mcg/actuation nasal spray Use 1 Cypress in each nostril two times a day. [...] entered by the nurse and reviewed by in Nursing Notes: Shefali Richter LPN 09/21/2023 8:37 AM Signed REVIEW [...] last Mammogram screening? N/A Last Colonoscopy: N/A Shefali Richter LPN PHYSICAL EXAMINATION: General: The patient [...] the patient printed material concerning the procedure. Aec freely consents to surgery. I have explained [...] esophagitis present (primary encounter diagnosis) Monse Chapin APRN.GRADE RECORDER UPDATED HISTORY AND PHYSICAL EXAMINATION SERVICE DATE: [...] can be found in the attached. SIGNATURE: Lauren Guo III, MD PATIENT NAME: Ace Leonardo DATE: November 16, 2023 TIME: 11:07 AM documented in this encounter [facility] 09-21-2023 History of Present illness Narrative [...] had a gastric emptying study done at [facility] on May that was normal. Patient [...] SENSIMIST) 27.5 mcg/actuation nasal spray Use 1 Cypress in each nostril two times a day. [...] entered by the nurse and reviewed by in Nursing Notes: Shefali Richter LPN 09/21/2023 8:37 AM Signed REVIEW [...] last Mammogram screening? N/A Last Colonoscopy: N/A Shefali Richter LPN PHYSICAL EXAMINATION: General: The patient [...] esophagitis present (primary encounter diagnosis) Monse Chapin APRN.GRADE RECORDER documented in this encounter [facility] 09-21-2023 Nurse Note REVIEW OF SYSTEMS: [...] last Mammogram screening? N/A Last Colonoscopy: N/A Shefali Richter LPN [facility] 09-21-2023 Nurse Note REVIEW OF SYSTEMS: [...] last Mammogram screening? N/A Last Colonoscopy: N/A Shefali Richter LPN documented in this encounter [facility] 09-13-2023 Telephone encounter Note Referral received, given to [facility] scheduler to reach out to patient for an appointment. Ирина Frost LPN September 13, 2023 3:43 PM [facility] 09-13-2023 Miscellaneous Notes Referral received, given to [facility] scheduler to reach out to patient for an appointment. Ирина Frost LPN September 13, 2023 3:43 PM No appointment or referral for this patient. Ирина Frost LPN September 13, 2023 3:[address] Lino's office at [facility] calling and asking for update on appointment with Dr. Guo. I didn't see anything scheduled. Michelle will fax referral again. documented in this encounter [facility] 09-13-2023 Telephone encounter Note No appointment or referral for this patient. Ирина Frost LPN September 13, 2023 3:38 PM [facility] 09-13-2023 Telephone encounter Note Michelle from Dr. Lino's office at [facility] calling and asking for update on appointment with Dr. Guo. I didn't see anything scheduled. Michelle will fax referral again. [facility] 09-05-2023 Instructions Hemalatha Anthony PA-C - [...] tips for improved daily living with POTS. http://[email or web address].[email or web address]/po ts Orthostatic Workout There are videos /playlist/podcast to viewed and helped for exercises and wellness for POTS and Orthostatics Instructions:https://www.Spreecast. com/channel/[email or web address] hDA In your search bar in the [...] support people Also follow us along on [employer] account POTSWILSON Also besides the exercise are some morales mediation videos . Click and watch. Utilize when your adrenaline is active. May even play music to go along. Play the video as often you want to help as an additional tool to reset the adrenaline https://www.Inform Genomicsube.com/watch?v=h BCg3hNcSZ7 https://www.youLogicTreeube.com/watch?v=c 6rMgyI-3pU&feature=youtu.be https://www.Inform Genomicsube.com/watch?v=K 5iD7kKuC26 Shared Medical Appointments To schedule the [facility] please call during Sunday-Sunday 9 am - 4 pm , THE CALL CENTER # [phone] The CALL CENTER IS OPEN 24 hours/ 7 DAYS PER WEEK Please be patient with the phone line. We are honored and glad to have you part of the SMA for POTS Welcome to [facility] (SHARED MEDICAL APPOINTMENTS) We have learned at the [facility] and especially in my work and [...] and the Autonomic Team Scheduling Phone numbers [facility] Scheduling [phone] [facility] [place] Scheduling [phone] Cardiology - General [phone] Endocrinology [phone] Ophthalmology [phone] Physical Therapy/ Occupational Therapy [phone] Cardiology General [phone] Holter walk in [phone] walk in J-2-2 EKG walk in [phone] walk in J-1-4 Echo same day [phone] Cardiac tilt [phone] The nursing staff and medical assistants are a major part of YOUR TREATMENT TEAM and will be handling your phone calls, SinoHubhart messages and inquiries, if any. Unless explicitly [...] do not comment on most testing on Sienhart in a message or commentary unless there [...] with this process. documented in this encounter [facility] 09-05-2023 History of Present illness Narrative [...] to help any allergies. Did see an lead applier and did not test positive for any allergies. Was diagnosed with chronic rhinitis. Notes her depression has improved as well, has been following with primary care for this. Did not see her windows deployment technician, did not have skin biopsy done as [...] SENSIMIST) 27.5 mcg/actuation nasal spray Use 1 Cypress in each nostril two times a day. [...] dysarthria; comprehension, naming, repetition intact. Short and group home memory intact. CN: PERRL, fundi appear normal [...] should any symptoms change or worsen. Hemalatha Anthnoy PA-C I spent a total of 45 minutes on the date of the service which included preparing to see the patient, frno-fh-rfbj patient care, completing clinical documentation, obtaining and/or reviewing separately obtained history, performing a medically appropriate examination, counseling and educating the patient/family/caregiver, and ordering medications, tests, or procedures. This document has been created with the use of voice recognition technology. It may contain inaccuracies: (e.g. misspellings, inaccurate syntax or word sense) that have escaped review. documented in this encounter [facility] 08-31-2023 Instructions Zita Tamayo MD - 08/31/2023 9:03 AM EDT Flonase sensimist 1 spray in each nostril twice a day. Ketotifen eye drops documented in this encounter [facility] 08-31-2023 History of Present illness Narrative [facility] All[facility] Immunology [facility] New Patient Visit [...] SENSIMIST) 27.5 mcg/actuation nasal spray; Use 1 Cypress in each nostril two times a day. - ketotifen fumarate (ZADITOR) 0.025 % (0.035 %) ophthalmic solution; Use 1 Drop in both eyes two times a day as needed. Return to clinic in 3 months, sooner if there's any concern. AVS provided to patient and included recap of today's appointment and medical plan. Zita Tamayo MD Allergy & Clinical Immunology [facility] documented in this encounter [facility] 08-31-2023 Nurse Note NEW. Patient here for environmental/food allergies - states Food - GERD, noted undigested food in BM x years Seasonal - sneezing, itching eyes, clearing throat, congestion, PND worst in Spring to Summer months Last date Zyrtec she took was 08/28/2023. [facility] 08-31-2023 Nurse Note NEW. Patient here for environmental/food allergies - states Food - GERD, noted undigested food in BM x years Seasonal - sneezing, itching eyes, clearing throat, congestion, PND worst in Spring to Summer months Last date Zyrtec she took was 08/28/2023. documented in this encounter [facility] 06-18-2023 Miscellaneous Notes Please see results: Scan on 06/18/2023 3:15 PM by Provider, ADA Dior: Overnight Pulse Ox Deana Gastelum LPN Fax sent to [place] requesting records. Deana Gastelum LPN documented in this encounter [facility] 05-18-2023 History of Present illness Narrative [...] PATIENT PRESENTS WITH AN IMPLANTABLE OR ATTACHED DIRECTOR PROPERTY: N/A CREATININE: Creatinine Date Value Ref Range [...] [address] PERFORMED: No IV SITE: AL only - not applicable, oral or physician administered agents given to patient POST EXAM PIV STATUS: Not applicable PROCEDURE TYPE: NM GET: 1.1 mCi Tc99m SULFUR COLLOID was administered orally via 4 ounces of Egg Beaters,2 pieces of toast, 1 ounce of jelly with 8 ounces of water orally ADMINISTRATION TIME: 08:10 PATIENT DISCHARGED TO: Ambulatory patient, left AL department area. A Diagnostic radioactive procedure has taken place, with no further precautions necessary other than routine body substance precautions. More information regarding radiation safety can be found using this link: [email or web address]/[email or web address] [email or web address]/files/Rad%20P rotection%20-%20Diagnostic%20Nucl ear%20Medicine%20Procedures.pdf SIGNATURE: USHA Mims) PATIENT NAME: Ace Leonardo DATE: May 18, 2023 TIME: 10:20 AM PAGER/CONTACT #: documented in this encounter [facility] 02-22-2023 Miscellaneous Notes [phone] Met[facility]rolol 25 mg, 11 pages 02/22/2023. Placed documents in [facility] location. Patient notified MyChart. Pita Hickey LPN Prior Authorization Documentation Prior authorization requested for the following medication: Medication: metoprolol Provider: [place] Name: [employer] Phone number: [phone] Patient ID number: [id number] Pharmacy Name: [facility] Patient reports she needs prior auth for metoprolol documented in this encounter [facility] 12-22-2022 Miscellaneous Notes Tilt table test [...] Pt and advise. documented in this encounter [facility] 11-15-2022 Discharge summary Note Date/Time November 14, 2022 10:02pm [facility] Medical Records Department [address] [place] [address] Emergency Department Summary 11/14/22 MR#: [id number] Acct: [id number] Name: ACE LEONARDO SANA Rep #:[id number] : 2000 22 From: Xavier Cruz PCP: Denise Tirado DO Status:REG E R Location: ED HPI History of Present Illness Chief Complaint: Chest Pain [facility] Medical History (Updated 11/14/22 @ 22:[address] Xavier Maloney DO) Anxiety Home Medications L norgest/E estradiol-E estrad [...] pathognomonic EKG changes (no diffuse ST elevations, AR depressions). GI etiology (i.e. Boerhaave syndrome) less [...] condition which required my urgent intervention. Xavier Maloney DO Lab Data Attestation: I reviewed the [...] % (Auto) 56.2 Lymph % (Auto) 32.6 [place] % (Auto) 9.7 Eos % (Auto) 0.7 [...] Referrals: Denise Tirado, [Primary Care Provider] - Activity Restrictions/Additional Instructions: [...] your Primary Care Provider. Call [facility] ([phone]) or report to the closest Emergency Room. Call 911 if necessary. 11/14/22 7634 <Electronically signed by Xavier Maloney DO> Cosigner Signature (if applicable): CC: Denise Tirado DO ~ Signed [facility] Work Phone: 1(531) 606-886007-08-2023 Discharge summary Author Espinoza [place] October 22, 2022 12:49am Note Date/Time October 21, 2022 11:42 pm [facility] Medical Records Department [address] [place] [address] Emergency Department Summary 10/21/22 MR#: [id number] Acct: [id number] Name: ACE LEONARDO SANA Rep #:[id number] : 2000 22 From: Espinoza Montero MD PCP: Denise Tirado DO Status:REG E R [...] no vision changes or any neurological symptoms. [facility] Medical History (Updated 10/22/22 @ 00:49 by [...] rhythm with a rate of 76. Normal AR and QTc intervals. No ischemic changes. Lab Data Labs: Laboratory Results - last 24 hr 10/21/22 23:50 WBC 8.1 RBC 4.40 Hgb 12.6 Hct 38.5 MCV 87.5 MCH 28.6 MCHC 32.7 RDW Std Deviation 42.5 RDW Coeff of Floridalma 13.2 Plt Count 332 MPV 10.2 Immature Gran % (Auto) 1.000 H Neut % (Auto) 58.2 Lymph % (Auto) 32.1 [place] % (Auto) 7.4 Eos % (Auto) 0.7 [...] your Primary Care Provider. Call [facility] ([phone]) or report to the closest Emergency Room. Call 911 if necessary. 10/22/22 0049 <Electronically signed by Espinoza Montero MD> Cosigner Signature (if applicable): CC: Denise Tirado, DO ~ Signed [facility] Work Phone: 1(978) 607-876306-21-2023 Instructions* Patient Instructions* Hemalatha Anthony PA-C - [...] exercises and wellness for POTS and Orthostatics Instructions:https://www.youLogicTreeube.com/channel/PI5IIbTHb1RRBYPByOgnFsNV In your search bar in the internet [...] support people Also follow us along on [employer] account POTSWILSON Also besides the exercise are some morales mediation videos . Click and watch. Utilize when your adrenaline is active. May even play music to go along. Play the video as often you want to help as an additional tool to reset the adrenaline https://www.youtube.com/watch?v=aPYm4nOpTU4 https://www.youtube.com/watch?v=r8nQnyO-8eN&feature=youtu.be https://www.youtube.com/watch?v=W6hU2lObL22 Shared Medical Appointments To schedule the [facility] please call during Sunday-Sunday 9 am - 4 pm , THE CALL CENTER # [phone] The CALL CENTER IS OPEN 24 hours/ 7 DAYS PER WEEK Please be patient with the phone line. We are honored and glad to have you part of the SMA for POTS Welcome to [facility] (SHARED MEDICAL APPOINTMENTS) We have learned at the [facility] and especially in my work and [...] help you for wellness and better heal Dr. Trev Mcghee and the Autonomic Team Scheduling Phone numbers [facility] Scheduling [phone] [facility] [place] Scheduling [phone] Cardiology - General [phone] Endocrinology [phone] Ophthalmology [phone] Physical Therapy/ Occupational Therapy [phone] Cardiology General [phone] Holter walk in [phone] walk in J-2-2 EKG walk in [phone] walk in J-1-4 Echo same day [phone] Cardiac tilt [phone] The nursing staff and medical assistants are a major part of YOUR TREATMENT TEAM and will be handling your phone calls, MyChart messages and inquiries, if any. Unless explicitly [...] you with this process. [facility] History of Present illness Narrative* Hemalatha Anthony PA-C - 10/04/2022 1:23 PM EDT Images from the original note were not included. Neurology Outpatient Clinic Date: October 04, 2022 Patient Name: Ace Leonardo Referring physician: Denise Tirado [address] [facility] [address] Consult requested for dizziness by Dr. Tirado. [...] she hadbent over while at work at [employer], and then quickly stood up causing her [...] 5/5 Finger Abd 5/5 5/5 Finger Add 08/18 5 MUSCLES Lower Extremity RIGHT LEFT Hip Flexion 08/18 5/5 Hip Extension 08/18 5 BiFem (Knee Flex) 08/18 5 Quads (Knee Ext) 08/18 5 Gastroc (Plantflx) 08/18 08/18 TibAnt (Dorsiflx) 08/18 5 FlxHLong (Toe Flex) 08/18 08/18 ExtHLong (Toe Ext) 08/18 5 Sensory Examination Intact to vibration throughout, intact proprioception. Minimally decreased sensation to temperaturein both the hands and feet equally and bilaterally, minimally decreased to sharp in the feet bilaterally. Reflexes Right Left Bicep 2/4 2/4 Tricep 2/4 2/4 BrRad 2/4 2/4 Knee 2/4 2/4 Ankle 2/4 2/4 Glaser Response Negative Negative Coordination: finger-to- nose-finger intact bilaterally and imxw-nx-thtn intact bilaterally. Gait: Patient's gait is normal, can heel and toe walk and can tandem walk Romberg: Negative DATA REVIEWED Actual films/image/tracing reviewed and summarized as follows: ECHO, mri brain, tilt table Old records reviewed and summarized as follows: limited- [facility] (cardio and pcp) Assessment/Plan Assessment & [...] standing,exercise. Has been evaluated by cardiology at [facility] with normal ECHO, normal holter, and [...] which included preparing to see the patient, [id number] patient care, completing clinical documentation, obtaining and/or reviewing separately obtained history, performing a medically appropriate examination, counseling and educating the pat ient/family/caregiver, and ordering medications, tests, or procedures. Hemalatha Anthony PA-C [facility] This document has been created with the use of voice recognition technology. It may contain inaccuracies: (e.g. misspellings, inaccurate syntax or word sense) that have escaped review. [facility] Miscellaneous Notes* Telephone Encounter - Deana Gastelum LPN - 09/14/2022 7:59 AM EDT Received referral request from [facility] for this patient to be seen for lightheadedness. Referral printed off and given to Stephanie Joyce. Deana Gastelum LPN documented in this encounterBl[facility]03-[facility]2023 History and physical note Author Dr. Vargas [facility] June 20, 2022 3:48pm Note Date/Time June 20, 2022 3:48 pm [facility] Medical Records Department [address] [place] [address] History & Physical Exam 06/20/22 1544 MR#: [id number] Acct: [id number] Name: ACE LEONARDO SANA Rep #:[id number] : 2000 21 From: Espinoza Vargas MD PCP: Denise Tirado, DO Status:REG C MARIZOL Location: [facility] History and Physical Date of Admission: 06/20/22 [facility] [address] [place] [address] OFFICE VISIT Date of Service:? 05/11/22 MR#: [id number] Acct: [id number] Name:ACE VILLANUEVA Rep #: [id number] : 2000 Provider: Dr. Espinoza Vargas MD Age/Sex:? 21/ Location: [facility] [place] [place] Status: Signed HPI HPI History of Present Illness Details: This [...] ? ? Intake Visit Reasons:?lightheadness/ dizziness ([place]) [employer]oc[employer] Required: No Accompanied by: Significant Other Allergies [...] up), syncope (x1 episode, bending over to chicken picker a case of water became dizzy) [...] Orders: Orders 12 Lead EKG performed by [facility] Today R42 - Dizziness and giddiness ? [...] Syncope? R55 Time Spent (min) 45 05/11/22 1656 <Electronically signed by Espinoza Vargas MD> Date Espinoza Vargas MD Cosigner Signature: Date (if applicable) CC:? Denise Tirado, ~ Assessment & Plan Addt'l Comments Addendum: 06/20/2022 I have previously examined the patient and the H&P has been reviewed. There are no clinical changes since date of exam. This note was generated using a voice recognition system and there may be incorrect words, spelling or punctuation that were not noted when reviewing the office note prior to saving.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 Federal rules restrict any use of the information to criminally investigate or prosecute any alcohol or drug abuse patient.[facility] HospitalIn the event this information is protected by the Federal Confidentiality of Alcohol and Drug Abuse Patient Records regulations: The Federal rules restrict any use of the information to criminally investigate or prosecute any alcohol or drug abuse patient.[facility] HospitalIn the event this information is protected by the Federal Confidentiality of Alcohol and Drug Abuse Patient Records regulations: The Federal rules restrict any use of the information to criminally investigate or prosecute any alcohol or drug abuse patient.[facility] HospitalIn the event this information is protected by the Federal Confidentiality of Alcohol and Drug Abuse Patient Records regulations: The Federal rules restrict any use of the information to criminally investigate or prosecute any alcohol or drug abuse patient.[facility] HospitalIn the event this information is protected by the Federal Confidentiality of Alcohol and Drug Abuse Patient Records regulations: The Federal rules restrict any use of the information to criminally investigate or prosecute any alcohol or drug abuse patient.[facility] HospitalIn the event this information is protected by the Federal Confidentiality of Alcohol and Drug Abuse Patient Records regulations: The Federal rules restrict any use of the information to criminally investigate or prosecute any alcohol or drug abuse patient.[facility] HospitalIn the event this information is protected by the Federal Confidentiality of Alcohol and Drug Abuse Patient Records regulations: The Federal rules restrict any use of the information to criminally investigate or prosecute any alcohol or drug abuse patient.[facility] HospitalIn the event this information is protected by the Federal Confidentiality of Alcohol and Drug Abuse Patient Records regulations: The Federal rules restrict any use of the information to criminally investigate or prosecute any alcohol or drug abuse patient.[facility] HospitalIn the event this information is protected by the Federal Confidentiality of Alcohol and Drug Abuse Patient Records regulations: The Federal rules restrict any use of the information to criminally investigate or prosecute any alcohol or drug abuse patient.[facility] HospitalIn the event this information is protected by the Federal Confidentiality of Alcohol and Drug Abuse Patient Records regulations: The Federal rules restrict any use of the information to criminally investigate or prosecute any alcohol or drug abuse patient.[facility] HospitalIn the event this information is protected by the Federal Confidentiality of Alcohol and Drug Abuse Patient Records regulations: The Federal rules restrict any use of the information to criminally investigate or prosecute any alcohol or drug abuse patient.[facility] HospitalIn the event this information is protected by the Federal Confidentiality of Alcohol and Drug Abuse Patient Records regulations: The Federal rules restrict any use of the information to criminally investigate or prosecute any alcohol or drug abuse patient.[facility] HospitalIn the event this information is protected by the Federal Confidentiality of Alcohol and Drug Abuse Patient Records regulations: The Federal rules restrict any use of the information to criminally investigate or prosecute any alcohol or drug abuse patient.[facility] HospitalIn the event this information is protected by the Federal Confidentiality of Alcohol and Drug Abuse Patient Records regulations: The Federal rules restrict any use of the information to criminally investigate or prosecute any alcohol or drug abuse patient.[facility] HospitalIn the event this information is protected by the Federal Confidentiality of Alcohol and Drug Abuse Patient Records regulations: The Federal rules restrict any use of the information to criminally investigate or prosecute any alcohol or drug abuse patient.[facility] HospitalIn the event this information is protected by the Federal Confidentiality of Alcohol and Drug Abuse Patient Records regulations: The Federal rules restrict any use of the information to criminally investigate or prosecute any alcohol or drug abuse patient.[facility] HospitalIn the event this information is protected by the Federal Confidentiality of Alcohol and Drug Abuse Patient Records regulations: The Federal rules restrict any use of the information to criminally investigate or prosecute any alcohol or drug abuse patient.[facility]In the event this information is protected by the Federal Confidentiality of Alcohol and Drug Abuse Patient Records regulations: The Federal rules restrict any use of the information to criminally investigate or prosecute any alcohol or drug abuse patient.[facility]In the event this information is protected by the Federal Confidentiality of Alcohol and Drug Abuse Patient Records regulations: The Federal rules restrict any use of the information to criminally investigate or prosecute any alcohol or drug abuse patient.[facility]In the event this information is protected by the Federal Confidentiality of Alcohol and Drug Abuse Patient Records regulations: The Federal rules restrict any use of the information to criminally investigate or prosecute any alcohol or drug abuse patient.[facility] HospitalIn the event this information is protected by the Federal Confidentiality of Alcohol and Drug Abuse Patient Records regulations: The Federal rules restrict any use of the information to criminally investigate or prosecute any alcohol or drug abuse patient.[facility]In the event this information is protected by the Federal Confidentiality of Alcohol and Drug Abuse Patient Records regulations: The Federal rules restrict any use of the information to criminally investigate or prosecute any alcohol or drug abuse patient.[facility]In the event this information is protected by the Federal Confidentiality of Alcohol and Drug Abuse Patient Records regulations: The Federal rules restrict any use of the information to criminally investigate or prosecute any alcohol or drug abuse patient.[facility]In the event this information is protected by the Federal Confidentiality of Alcohol and Drug Abuse Patient Records regulations: The Federal rules restrict any use of the information to criminally investigate or prosecute any alcohol or drug abuse patient.[facility]In the event this information is protected by the Federal Confidentiality of Alcohol and Drug Abuse Patient Records regulations: The Federal rules restrict any use of the information to criminally investigate or prosecute any alcohol or drug abuse patient.[facility]In the event this information is protected by the Federal Confidentiality of Alcohol and Drug Abuse Patient Records regulations: The Federal rules restrict any use of the information to criminally investigate or prosecute any alcohol or drug abuse patient.[facility]In the event this information is protected by the Federal Confidentiality of Alcohol and Drug Abuse Patient Records regulations: The Federal rules restrict any use of the information to criminally investigate or prosecute any alcohol or drug abuse patient.[facility]In the event this information is protected by the Federal Confidentiality of Alcohol and Drug Abuse Patient Records regulations: The Federal rules restrict any use of the information to criminally investigate or prosecute any alcohol or drug abuse patient.[facility]In the event this information is protected by the Federal Confidentiality of Alcohol and Drug Abuse Patient Records regulations: The Federal rules restrict any use of the information to criminally investigate or prosecute any alcohol or drug abuse patient.[facility]In the event this information is protected by the Federal Confidentiality of Alcohol and Drug Abuse Patient Records regulations: The Federal rules restrict any use of the information to criminally investigate or prosecute any alcohol or drug abuse patient.[facility]In the event this information is protected by the Federal Confidentiality of Alcohol and Drug Abuse Patient Records regulations: The Federal rules restrict any use of the information to criminally investigate or prosecute any alcohol or drug abuse patient.[facility]In the event this information is protected by the Federal Confidentiality of Alcohol and Drug Abuse Patient Records regulations: The Federal rules restrict any use of the information to criminally investigate or prosecute any alcohol or drug abuse patient.[facility] Care Teams (unrecognized sec tion and [...] Tirado , DO Primary Care Provider Active Layla Worthy [...] Tirado DO Primary Care Provider Active Dr. aXvier Maloney , Emergency Provider Active Team Status: Inactive Member Role Status Dates Denise Tirado DO Primary Care Provider Active Dr. Chase Goode MD Emergency Provider Active Veterinary Anatomist Relationship Specialty Start Date End Date CelestinoDenise sewell DO [address] [facility] [address] [place] [address] PCP - General Family Medicine 12/07/22 Team Status: Inactive Member Role Status Dates Denise Tirado DO Primary Care Provider, Referring Provider Active Estephania Samuels FAN INSTALLER, FAN INSTALLER-C Attending Provider Active Team Status: Active Member Role Status Dates Denise Tirado DO Primary Care Provider Active Estephania Samuels FAN INSTALLER, FAN INSTALLER-C Referring Provider, Other Provi angely Active Dr. Gabriel Camacho MD Attending Provider Active Team Status: Active Member Role Status Dates Denise Tirado DO Primary Care Provider Active Estephania Samuels FAN INSTALLER, FAN INSTALLER-C Attending Provider Active Team Status: Inactive Member Role Status Dates Denise M Celestino , DO Primary Care Provider Active Estephania Samuels FAN INSTALLER, FAN INSTALLER-C Attending Provider, Referring P boyd Active Team Status: Inactive Member Role Status Dates Denise Tirado , Primary Care Provider Active Dr. Xavier Maloney , Attending Provider, Emergency P rovianegly Active Team Status: Inactive Member Role Status Dates Denise Tirado , DO Primary Care Provider Active Dr. Chase Goode MD Attending Provider, Emergency Provi angely Active Veterinary Anatomist Relationship Specialty Start Date End Date Denise Tirado DO [address] [place] [address] PCP - General Family Medicine 12/07/22 Veterinary Anatomist Relationship Specialty Start Date End Date Denise Tirado DO [address] [facility] [address] [place] [address] PCP - General Family Medicine 12/07/22 Veterinary Anatomist Relationship Specialty Start Date End Date Denise Tirado DO [address] [facility] [address] [place] [address] PCP - General Family Medicine 12/07/22 Team Status: Inactive Member Role Status Dates Denise Tirado , Primary Care Provider Active Estephania Samuels FAN INSTALLER, FAN INSTALLER-C Attending Provider Active Veterinary Anatomist Relationship Specialty Start Date End Date Denise Tirado DO [address] [facility] [address] [place] [address] PCP - General Family Medicine 12/07/22 Veterinary Anatomist Relationship Specialty Start Date End Date Denise Tirado DO [address] [facility] [address] [place] [address] PCP - General Family Medicine 12/07/22 Veterinary Anatomist Relationship Specialty Start Date End Date Denise Tirado DO [address] [place] [address] PCP - General Family Medicine 12/07/22 Veterinary Anatomist Relationship Specialty Start Date End Date Celestino Denise RobertsDO [address] [place] [address] PCP - General Family Medicine 12/07/22 Veterinary Anatomist Relationship Specialty Start Date End Date Denise Tirado DO [address] [place] [address] PCP - General Family Medicine 12/07/22 Veterinary Anatomist Relationship Specialty Start Date End Date Karthik Lino MD [address] [place] [address] PCP - General Family Medicine 09/21/23 Veterinary Anatomist Relationship Specialty Start Date End Date Karthik Lino MD [address] [place] [address] PCP - General Family Medicine 09/21/23 Veterinary Anatomist Relationship Specialty Start Date End Date Karthik Lino MD [address] [place] [address] PCP - General Family Medicine 09/21/23 Veterinary Anatomist Relationship Specialty Start Date End Date Karthik Lino MD [address] [place] [address] PCP - General Family Medicine 09/21/23 Veterinary Anatomist Relationship Specialty Start Date End Date Karthik Lino MD [address] [place] [address] PCP - General Family Medicine 09/21/23 Veterinary Anatomist Relationship Specialty Start Date End Date Karthik Lino MD [address] [place] [address] PCP - General Family Medicine 09/21/23 Veterinary Anatomist Relationship Specialty Start Date End Date Karthik Lino MD [address] [place] [address] PCP - General Family Medicine 09/21/23 Veterinary Anatomist Relationship Specialty Start Date End Date Karthik Lino MD [address] [place] [address] PCP - General Family Medicine 09/21/23 Veterinary Anatomist Relationship Specialty Start Date End Date Karthik Lino MD [address] [place] [address] PCP - General Family Medicine 09/21/23 Veterinary Anatomist Relationship Specialty Start Date End Date Karthik Lino MD [address] [place] [address] PCP - General Family Medicine 09/21/23 Veterinary Anatomist Relationship Specialty Start Date End Date Karthik Lino MD [address] [place] [address] PCP - General Family Medicine 09/21/23 Veterinary Anatomist Relationship Specialty Start Date End Date Karthik Lino MD [address] [place] [address] PCP - General Family Medicine 09/21/23 Veterinary Anatomist Relationship Specialty Start Date End Date Karthik Lino MD [address] [place] [address] PCP - General Family Medicine 09/21/23 Veterinary Anatomist Relationship Specialty Start Date End Date Karthik Lino MD [address] [place] [address] PCP - General Family Medicine 09/21/23 Veterinary Anatomist Relationship Specialty Start Date End Date Karthik Lino MD [address] [place] [address] PCP - General Family Medicine 09/21/23 Veterinary Anatomist Relationship Specialty Start Date End Date Karthik Lino MD [address] [place] [address] PCP - General Family Medicine 09/21/23 Veterinary Anatomist Relationship Specialty Start Date End Date Karthik Lino MD [address] [place] [address] PCP - General Family Medicine 09/21/23 Veterinary Anatomist Relationship Specialty Start Date End Date Karthik Lino MD [address] [place] [address] PCP - General Family Medicine 09/21/23 Veterinary Anatomist Relationship Specialty Start Date End Date Karthik Lino MD [address] [place] [address] PCP - General Family Medicine 09/21/23 Veterinary Anatomist Relationship Specialty Start Date End Date Karthik Lino MD [address] [place] [address] PCP - General Family Medicine 09/21/23 Veterinary Anatomist Relationship Specialty Start Date End Date Karthik Lino MD [address] [place] [address] PCP - General Family Medicine 09/21/23 Veterinary Anatomist Relationship Specialty Start Date End Date Karthik Lino MD [address] [place] [address] PCP - General Family Medicine 09/21/23 Veterinary Anatomist Relationship Specialty Start Date End Date Karthik Lino MD [address] [place] [address] PCP - General Family Medicine 09/21/23 Veterinary Anatomist Relationship Specialty Start Date End Date Karthik Lino MD [address] [place] [address] PCP - General Family Medicine 09/21/23 Veterinary Anatomist Relationship Specialty Start Date End Date Karthik Lino MD [address] [place] [address] PCP - General Family Medicine 09/21/23 Veterinary Anatomist Relationship Specialty Start Date End Date Karthik Lino MD [address] [place] [address] PCP - General Family Medicine 09/21/23 Goals [...] GASTRIC EMPTYING STUDY Hemalatha Anthony PA-C [address] [place] [address] Molecular & Functional Imaging [address] [place] [address] Referral ID Status Reason Start Date Expiration Date V isits Requested Visits Authorized [id number] Closed Auto-Generate d Referral 01/09/2023 02/08/2024 1 1 Reason Comments Follow Up Reason Comments New Patient EGD consult Specialty Diagnoses / Procedures Referred By Contac t Referred To Contact Diagnoses Consult for EGD Procedures Consult for [place] [address] Referral ID Status Reason Start Date Expiration Date Visits Requested Visits Authorized [id number] Authorized Patient Cleared - Qualified 100% FAS 09/21/2023 12/20/2023 99 99 Specialty Diagnoses / Procedures Referred By Contac t Referred To Contact Diagnoses Consult for EGD Procedures Consult for EGD Self [facility] [address] [place] [address] Referral ID Status Reason Start Date Expiration Date V isits Requested Visits Authorized [id number] Closed Patient Cleared - Qualified 100% FAS 09/21/2023 12/20/2023 99 99 Reason Comments Patient Update Reason Comments Refill Request Reason Comments Follow Up EGD Reason Comments New Patient H[facility] ( [place] ) Specialty Diagnoses / Procedures Referred By [...] ESOPHAGEAL MANOMETRY [facility] [address] [place] [address] Referral ID Status Reason Start Date Expiration Date Visits Re quested Visits Authorized [id number] 1 1 Reason Comments Patient Question Reason [...] Reason Comments Consult Here for abdominal p silvinon, Dr Ferreira to see Reason Comments Follow Up Reason Comments Infection (specify) Infection to umbilic us Reason Comments Follow Up Umbilical incision i nfection Reason Comments Nasal Congestion drainage, cough and sore throat x 2 days Reason Comments Follow Up MRI not approved- Sa porter Brantley for pain management, Has not completed HSAT Scheduled Active and Recently Administ ered Medications (unrecognized section and content) Medication Order 02/04/2024 02/05/2024 02/06/2024 metoclopramide HCl 5 mg injection (REGLAN) (COMPLETED) 5 mg, INTRAVENOUS, ONCE, 1 dose, On Sun02/06/24 at 1200, Pharmacist may modify dose per [facility] [place] dose optimization consult agreement: Yes 1201 (Given [...] section and content) DATE CREATED AUTHOR 02/19/2024 [facility] DATE CREATED AUTHOR AUTHOR[facility]S [facility]GANIZ [facility] 08/04/2024 [facility] DATE CREATED AUTHOR AUTHOR'S ORGANIZ ATION 01/17/2025 [facility] DATE CREATED AUTHOR AUTHOR'S ORGANIZ ATION 02/15/2025 [facility] FOR RECORDS PERTAINING TO PATIENTS WHO ARE [...] BE BASED ON THE PRIMARY CLINICAL RECORDS. [employer] provides no warranty or guarantee of the accuracy or completeness of information in this document.
--- NOTE | 2025-03-07 00:46 | ED.RN ---
Pt stated she felt better and was tired of sitting her. IV d/c'd and pt ambulated out of dept.
--- NOTE | 2025-03-07 01:15 | EDS_ITS ---
HPI History of Present Illness Chief Complaint: Fever Informant: patient and spouse/S.O. Narrative Narrative: Patient is a 24-year-old female with past med history of gastroparesis and POTS. She states over the last 2 to 3 days she has had nasal congestion sore throat cough. She states with this she has had muscle aches and pains and fatigue. She states she went to the urgent care yesterday and tested positive for COVID. She states that she has difficulty taking medication or drinking fluids secondary to her gastroparesis. Because of this she states she cannot get her fever under control and therefore presents for evaluation. [facility] Medical History (Updated 03/08/25 @ 22:[address] Naveen Mathews, DO) Gastroparesis Nausea and vomiting Postural orthostatic tachycardia syndrome [POTS] Anxiety Home Medications ?Medication ?Instructions ?Recorded ?Last Taken ?Type mecobalamin (vitamin B12) 1,000 2,000 mcg PO DAILY 12/07 Unknown History mcg chewable tablet azelastine 137 mcg (0.1 %) nasal 2 spray intranasal BI D #30 mL 02/13/24 Unknown Rx spray metoprolol succinate 50 mg 50 mg PO QDAY #90 tabs 02/14 06/09 Unknown Rx tablet,extended release 24 hr L norgest/E estradiol-E estrad See Rx Instructions PO .COMPLEX 03/10/24 Unknown History 0.15 mg-30 mcg (84)/10 mcg(7) tabs,3mos (Jaimiess) cetirizine 10 mg capsule (Zyrtec) 10 mg PO QDAY PRN al lergy symptoms 03/10/24 Unknown History vonoprazan 10 mg tablet 10 mg PO QDAY #30 tabs 06/24 Unknown Rx cholecalciferol (vitamin D3) 1,250 1,250 mcg PO QWEEK 10/16/24 Unknown History mcg (50,000 unit) tablet ondansetron 4 mg disintegrating 4 mg PO Q12H PRN nause a and 10/20/24 Unknown Rx tablet vomiting #30 tabs trazodone 100 mg tablet 100 mg PO QHS PRN insomnia # 90 tabs 12/17/24 Unknown Rx naratriptan 2.5 mg tablet See Rx Instructions PO .COMP DAO 01/22/25 Unknown History scopolamine base 1 mg over 3 days 1 patch transdermal Q3D PRN nausea 01/22/25 Unknown Rx transdermal patch and vomiting #4 ea nortriptyline 25 mg capsule 25 mg PO QDAY 02/26/25 Unk nown History prucalopride 2 mg tablet 2 mg PO QDAY #30 tabs Unknown Rx (Motegrity) Allergy/AdvReac Type Severity Reaction Status Date / Time methocarbamol Allergy Intermediate Rash Verified 03/06/25 22:54 metoclopramide (From Reglan) Allergy Intermediate Hives Verified 03/06/25 22:54 cyclobenzaprine Allergy Mild Rash Verified 03/06/25 22:54 tizanidine Allergy Mild lathargic Verified 03/06/25 22:54 Family History Other Alcoholism Arthritis Cancer Diabetes Hypertension Obesity Seizures Surgical History S/P cholecystectomy Social History household members: significant other Smoking Status: Never smoker alcohol intake: current alcohol intake frequency: holidays/special occasions only substance use type: does not use caffeine: Yes (x2 week) ROS ROS ED Constitutional Constitutional ED: Reports chills, fever(s) and other Details: Positive fatigue ENT ENT ED: Reports rhinorrhea and sore throat Cardiovascular Cardiovascular: Denies chest pain Respiratory/Chest Respiratory/Chest: Reports cough; Denies dyspnea Gastrointestinal Gastrointestinal: Reports nausea; Denies abdominal pain, diarrhea or vomiting Genitourinary Genitourinary ED: Denies dysuria Musculoskeletal Musculoskeletal: Reports myalgias Integumentary Denies rash Neurologic Neurologic: Reports headache(s) Hematologic/Lymphatic Hematologic/Lymphatic: Denies easy bleeding or easy bruising EXAM Physical Exam Const Vital Signs: 03/06/25 22:54 03/06/25 23:01 03/07/25 00:09 Temperature 102.9 F H 99.9 F H Temperature Source Oral Oral Pulse Rate 121 H Respiratory Rate 18 Respiratory Effort Normal Respiratory Pattern Normal Blood Pressure 145/106 H Blood Pressure Mean 119 Pulse Ox 100 Oxygen Delivery Method Room Air Positive well nourished and well developed General Appearance ED: well developed; Negative for pallor HEENT Reports dry mucous membranes HEENT Narrative: Normocephalic atraumatic Bilateral TMs are retracted but show no secondary changes to suggest infection Nasal mucosa is hyperemic and boggy Cobblestoning is noted in the posterior pharynx consistent with sinus drainage without secondary findings to suggest infection Mucous membranes are mildly dry and tacky Mouth ED: Yes dry mucous membranes Mouth: dry mucous membranes Eyes PERRL and EOMs intact bilaterally General Eye ED: Negative for scleral icterus Neck supple Neck Narrative: No nuchal rigidity or meningeal signs Resp normal respiratory effort and clear to auscultation bilaterally Resp Narrative: No nasal flaring retractions tachypnea or accessory muscle use Cardio regular rhythm Rate: tachycardic and other Other Details: Tachycardic rate with regular rhythm No murmurs rubs or gallop Radial and carotid pulses are equal and symmetric GI non-tender, non-distended and no masses GI Narrative: Abdomen is soft nontender and nondistended with hypoactive bowel sounds. No voluntary guarding or rigidity or pulsatile mass. No peritoneal signs. Auscultation: hypoactive bowel sounds Palpation: soft Extremity normal to inspection Extremity Narrative: No asymmetric edema no pitting edema negative Homans' sign bilaterally Neuro oriented x3, CN's II-XII intact bilaterally and no sensory deficits noted Sensorium / Orientation: alert Motor Exam: strength 5/5 throughout Psych mental status grossly normal Skin no rashes or lesions noted and skin turgor normal General Skin Exam: Negative for jaundice or pallor MDM MDM MDM Narrative Medical decision making narrative: Patient arrived to the ER febrile and tachycardic consistent with this. She has a known diagnosis of COVID. She does not have findings of respiratory distress and by physical exam there is no secondary infection such as strep pharyngitis or otitis media or pneumonia. Therefore I do not feel the need for testing at this time. However because of the patient's insensible loss from her fever and tachycardia I do feel that she would benefit from IV fluids and treatment for her nausea and pyrexia. Therefore she was given 1 L of fluid as well as Toradol and Compazine. Prior to my ability to go back in and reassessed the patient she called out to the nursing staff and told them she felt much better at this time and does not want to wait for discharge papers and therefore they removed her IV and she eloped from the ER History & Record Review Discussion w/independent historian: Patient and Significant other Discharge Plan Triage Chief Complaint: Fever ED Provider: Andes,Naveen Dx/Rx/DC Orders Clinical Impression: COVID-19, Pyrexia, Gastroparesis, Postural orthostatic tachycardia syndrome [POTS] Prescriptions: No Action mecobalamin (vitamin B12) 1,000 mcg tablet,chewable 2,000 mcg PO DAILY metoprolol succinate 50 mg tablet extended release 24 hr 50 mg PO QDAY Qty: 90 3RF L norgest/e.estradiol-e.estrad [Jaimiess] 0.15 mg-30 mcg (84)/10 mcg (7) tablets,dose pack,3 month See Rx Instructions PO .COMPLEX Rx Instructions: take 1 tablet daily following the order on blister card(s) PO Zyrtec 10 mg capsule 10 mg PO QDAY PRN (Reason: allergy symptoms) vonoprazan 10 mg tablet 10 mg PO QDAY Qty: 30 2RF ondansetron 4 mg tablet,disintegrating 4 mg PO Q12H PRN (Reason: nausea and vomiting) Qty: 30 1RF cholecalciferol (vitamin D3) 1,250 mcg (50,000 unit) tablet 1,250 mcg PO QWEEK trazodone 100 mg tablet 100 mg PO QHS PRN (Reason: insomnia) Qty: 90 1RF naratriptan 2.5 mg tablet See Rx Instructions PO .COMPLEX Rx Instructions: take 1 tab at onset of headache; if no relief may repeat 1 tab after at least 4 hrs; max = 2 tabs/24 hrs PO scopolamine base 1 mg over 3 days patch 3 day 1 patch transdermal Q3D PRN (Reason: nausea and vomiting) Qty: 4 1RF nortriptyline 25 mg capsule 25 mg PO QDAY prucalopride [Motegrity] 2 mg tablet 2 mg PO QDAY Qty: 30 2RF azelastine 137 mcg (0.1 %) spray,non-aerosol 2 spray intranasal BID Qty: 30 0RF Rx Instructions: administer into each nostril Primary Care Provider: Karthik Lino Referrals: Karthik Lino MD [Primary Care Provider, Family Practice] Print Language: [place] Island[place] Disposition Disposition: Elopement Discharge Date/Time: 03/07/25 00:51
== END 2025-03-07 00:51 | disposition left against medical advice (07) ==
LOC: ED 03-07 00:22
PROVIDERS: Emergency Provider Emergency Medicine; PCP Family Medicine; Visit Provider Emergency Medicine
DX: U07.1 COVID-19 (principal); K31.84 Gastroparesis; G90.A Postural orthostatic tachycardia syndrome [POTS]; R50.9 Fever, unspecified; R51.9 Headache, unspecified
CPT/HCPCS: 96361; 96374; 96375; 96376; 99283; A4216